=== PATIENT | male | born 1930 | race Caucasian/White ===

== ENCOUNTER 2016-09-07 16:05 | Emergency (ER) | payer OTHER, BC ==
[2016-09-07 16:15] VITALS: TEMP 97.8; BMI 25.1
--- NOTE | 2016-09-07 16:17 | PDOC ---
Rapid Medical Evaluation Time Seen by Provider: 09/07/16 16:13 Medical Evaluation: Allergies Allergy/AdvReac Type Severity Reaction Status Date / Time No Known Drug Allergies Allergy Verified 11/17/15 20:34 shrimp Allergy Unknown lip Uncoded 11/17/15 20:34 swelling 09/07/16 16:14 I have performed a brief in-person evaluation of this patient. Mr. Ramirez is an 85 yo M sent in by Dr. Smallwood Last night had shortness of breath, gave himself a treatment but he continued to be short of breath Coughing for a few days Mucous changed color No fevers, (+) chills No chest pain Pertinent physical exam findings: Lungs clear, no wheezing or decreased breath sounds appreciated I have ordered the following: Sepsis order set The patient will proceed to the ED for further evaluation. 09/07/16 16:17
--- NOTE | 2016-09-07 16:54 | PDOC ---
History of Present Illness - History of Present Illness Initial Comments: 09/07/16 17:58 Patient is an 85 year old male with significant medical hx of HLD, HTN, and COPD (not on O2 at home) who is presenting to the ED with diaphoresis, chills, and cough since last night. The patient reports an hour after falling asleep last night he began sweating with chills. The patient also complains of non- productive cough with some congestion. The patient is unsure if this is an exacerbation of his COPD. Denies fevers, chest pain, or shortness of breath. NKDA. Certified Indoor Environmentalist: Neeraj Smallwood MD PMD: Nile Dahl MD [employer] Merchandising Coordinator: Everett Orr MD <Neena Adame - Last Filed: 09/07/16 18:16> - General History Source: Patient Exam Limitations: No Limitations <Neil Shaver - Last Filed: 09/07/16 18:49> - General Chief Complaint: Shortness of Breath Stated Complaint: PCP SENT/POSS PNEUMONIA Time Seen by Provider: 09/07/16 16:13 Past History <Neena Adame - Last Filed: 09/07/16 18:16> - Past Medical History Cancer: Yes (Lung Nodule (?)) COPD: Yes HTN: Yes Hypercholesterolemia: Yes Suicide Attempt (Hx): No - Immunization History Immunization Up to Date: No - Psycho/Social/Smoking Cessation Hx Anxiety: No Suicidal Ideation: No Smoking Status: Yes Smoking History: Former smoker Have you smoked in the past 12 months: No Number of Cigarettes Smoked Daily: 0 If you are a former smoker, when did you quit?: 1989 Information on smoking cessation initiated: No Hx Alcohol Use: No Drug/Substance Use Hx: No Substance Use Type: None <Neil Shaver - Last Filed: 09/07/16 18:49> - Past Medical History Allergies/Adverse Reactions: Allergies Allergy/AdvReac Type Severity Reaction Status Date / Time No Known Drug Allergies Allergy Verified 09/07/16 16:14 shrimp Allergy Unknown lip Uncoded 09/07/16 16:14 swelling Home Medications: Ambulatory Orders Tiotropium [place] [Spiriva] 18 mcg IH DAILY 06/23/11 Albuterol Sulfate [Proair Hfa -] 1 - 2 inh PO PRN PRN #1 hfa.[email or web address] 03/27/14 Budesonide/Formeterol Fumarate [SYMBICORT 80/4.5mcg -] 1 inh PO DAILY 02/15/15 Aspirin Coated [Ecotrin -] 81 mg PO DAILY tablet.ec 11/20/15 Atorvastatin Ca [Lipitor] 40 mg PO HS tablet 11/20/15 Fludrocortisone Acetate [Florinef -] 0.1 mg PO DAILY tablet 11/20/15 Metoprolol Tartrate [Lopressor -] 12.5 mg PO BID tablet 11/20/15 Review of Systems - Review of Systems Comments:: 09/07/16 18:00 GENERAL/CONSTITUTIONAL: Diaphoresis, chills. No fever. No weakness. HEAD, EYES, EARS, NOSE AND THROAT: No change in vision. No ear pain or discharge. No sore throat. CARDIOVASCULAR: No chest pain or shortness of breath. RESPIRATORY: Cough. No wheezing or hemoptysis. GASTROINTESTINAL: No nausea, vomiting, diarrhea or constipation. GENITOURINARY: No dysuria, frequency, or change in urination. MUSCULOSKELETAL: No joint or muscle swelling or pain. No neck or back pain. SKIN: No rash NEUROLOGIC: No headache, vertigo, loss of consciousness, or change in strength/ sensation. <Neena Adame - Last Filed: 09/07/16 18:16> *Physical Exam - Vital Signs Last Vital Signs Temp Pulse Resp BP Pulse Ox 97.8 F 97 H 18 142/87 93 L 09/07/16 16:10 09/07/16 16:10 09/07/16 16:10 09/07/16 16:10 09/07/16 16:10 - Physical Exam Comments: 09/07/16 18:01 GENERAL: Awake, alert, and fully oriented, in no acute distress. Smiling. HEAD: No signs of trauma EYES: PERRLA, EOMI, sclera anicteric, conjunctiva clear ENT: Auricles normal inspection, hearing grossly normal, nares patent, oropharynx clear without exudates. Moist mucosa NECK: Normal ROM, supple, no lymphadenopathy, JVD, or masses LUNGS: Breathing comfortably. Breath sounds equal, clear to auscultation bilaterally. No wheezes, and no crackles HEART: Regular rate and rhythm, normal S1 and S2, no murmurs, rubs or gallops ABDOMEN: Soft, nontender, normoactive bowel sounds. No guarding, no rebound. No masses EXTREMITIES: Normal range of motion, no edema. No clubbing or cyanosis. No cords, erythema, or tenderness NEUROLOGICAL: Cranial nerves II through XII grossly intact. Normal speech, normal gait SKIN: Warm, Dry, normal turgor, no rashes or lesions noted. ENDOCRINE: No increased thirst. No abnormal weight change. HEMATOLOGIC/LYMPHATIC: No anemia, easy bleeding, or history of blood clots. ALLERGIC/IMMUNOLOGIC: No hives or skin allergy. <Neena Adame - Last Filed: 09/07/16 18:16> - Vital Signs Last Vital Signs Temp Pulse Resp BP Pulse Ox 97.8 F 97 H 18 142/87 93 L 09/07/16 16:10 09/07/16 16:10 09/07/16 16:10 09/07/16 16:10 09/07/16 16:10 <Neil Shaver - Last Filed: 09/07/16 18:49> Heart Score/ECG Review #1 ECG reviewed & interpreted by me at: 16:25 09/07/16 16:51 NSR 82, no std/donnell, normal axis, normal intervals, QTC 457 msec <Neil Shaver - Last Filed: 09/07/16 18:49> ED Treatment Course - LABORATORY CBC & Chemistry Diagram: 09/07/16 16:45 09/07/16 16:45 - ADDITIONAL ORDERS Additional order review: Laboratory Results 09/07/16 09/07/16 09/07/16 16:45 16:45 16:45 INR 1.19 H PTT (Actin FS) 30.9 Lactic Acid 1.081 Blood Type A POSITIVE Antibody Screen Negative 09/07/16 17:13 Influenza Types A,B Antigen (MELISSA) - Final Nasopharyngeal Swab - Final 09/07/16 16:45 RBC 5.02 MCV 89.5 MCHC 33.8 RDW 14.7 MPV 7.6 Neutrophils % 67.1 Lymphocytes % 26.0 Monocytes % 4.0 Eosinophils % 2.4 Basophils % 0.5 - RADIOLOGY Radiograph Interpretation: 09/07/16 18:16 Pharmacy General Manager: ([email or web address]) Report Date: 09/07/2016 17:03:00 Report Status: Preliminary Begin of Report Content Referring Physician: Janae Navarro Patient Name: Fran Ramirez THIS IS A FINAL REPORT FROM [facility] EXAM: X-RAY OF THE CHEST DATE OF SERVICE: 2016-09-07 17:03:10.0 IMAGES: 1 INDICATION: Sepsis. COMPARISON: None. FINDINGS: CARDIOVASCULAR: The cardiopericardial silhouette is within normal size limits. The mediastinum is not widened. The pulmonary vasculature is within the limits of normal. LUNGS: The lungs are hyperinflated with overall increased lucency indicative of COPD. There is upper lobe bullous change and fibrosis. There is pleural disease. There is no airspace consolidation, pleural effusion or visible pneumothorax. BONES: The imaged osseous structures demonstrate no acute abnormality. IMPRESSION: Chronic emphysematous lung disease. No infiltrate seen radiographically. THIS DOCUMENT HAS BEEN ELECTRONICALLY SIGNED Aggie Mcghee M.D. 09/07/2016 17:37 KENJI Amin Please call [facility] [phone] ([phone]) with questions. End of Report Content <Neena Adame - Last Filed: 09/07/16 18:16> - LABORATORY CBC & Chemistry Diagram: 09/07/16 16:45 09/07/16 16:45 <Neil Shaver - Last Filed: 09/07/16 18:49> Medical Decision Making - Medical Decision Making 09/07/16 16:52 A portion of this note was written by my scribe, under my supervision. Vital Signs Temp Pulse Resp BP Pulse Ox 97.8 F 97 H 18 142/87 93 L 09/07/16 16:10 09/07/16 16:10 09/07/16 16:10 09/07/16 16:10 09/07/16 16:10 85 year old male with past medical history of COPD (followed by DR. Smallwood), HLD p/w coughing and chills since yesterday. Denies sick contacts. Denies fevers. Stated he had chest congestion and coughing. Denies chest pain or SOB. The patient overall is well-appearing and breathing comfortably. Will r/o PNA. Though I suspect that this is likely viral syndrome. Case discussed with DR. Smallwood who agrees with plan for xray/labs. 09/07/16 18:43 Chest xray reviewed. No acute infiltrates. Influenza swab negative. CBC, BMP 09/07/16 16:45 09/07/16 16:45 CMP Sodium 144 mmol/L (136-145) 09/07/16 16:45 Potassium 4.0 mmol/L (3.5-5.1) 09/07/16 16:45 Chloride 104 mmol/L (98-107) 09/07/16 16:45 Carbon Dioxide 29 mmol/L (21-32) 09/07/16 16:45 Anion Gap 11 (8-16) 09/07/16 16:45 BUN 26 mg/dL (7-18) H 09/07/16 16:45 Creatinine 1.0 mg/dL (0.7-1.3) 09/07/16 16:45 Creat Clearance w eGFR > 60 (>60) 09/07/16 16:45 Random Glucose 109 mg/dL (74-106) H 09/07/16 16:45 Lactic Acid 1.081 mmol/L (0.4-2.0) 09/07/16 16:45 Calcium 9.2 mg/dL (8.5-10.1) 09/07/16 16:45 Total Bilirubin 0.5 mg/dL (0.2-1.0) D 09/07/16 16:45 AST 18 U/L (15-37) 09/07/16 16:45 ALT 16 U/L (12-78) 09/07/16 16:45 Alkaline Phosphatase 63 U/L (45-117) D 09/07/16 16:45 Creatine Kinase 57 IU/L (39-308) 09/07/16 16:45 Troponin I < 0.02 ng/ml (0.00-0.05) D 09/07/16 16:45 Total Protein 6.8 g/dl (6.4-8.2) 09/07/16 16:45 Albumin 4.1 g/dl (3.4-5.0) 09/07/16 16:45 The patient feels very well. He will be discharged with his family. Return precautions given. I discussed the physical exam findings, ancillary test results and final diagnoses with the patient. I answered all of the patient's questions. The patient was satisfied with the care received and felt comfortable with the discharge plan and treatment plan. The patient will call their primary care physician within 24 hours to arrange follow-up and will return to the Emergency Department with any new, persistant or worsening symptoms. <Neil Shaver - Last Filed: 09/07/16 18:49> *DC/Admit/Observation/Transfer - Attestations Scribe Attestion: 09/07/16 18:01 Documentation prepared by Neena Adame, acting as medical transcriber for Neil Shaver MD. <Neena Adame - Last Filed: 09/07/16 18:16> - Discharge Dispostion Admit: No <Neil Shaver - Last Filed: 09/07/16 18:49> Diagnosis at time of Disposition: Viral syndrome - Discharge Dispostion Disposition: HOME Condition at time of disposition: Good - Referrals Referrals: Nile Dahl MD [Primary Care Provider] - Neeraj Smallwood MD [Staff Physician] - - Patient Instructions Printed Discharge Instructions: DI for Viral Syndrome Additional Instructions: Your chest xray and influenza swab is negative. Your blood work is unremarkable. Follow up with Dr. Smallwood.
[2016-09-07 16:58] LABS: BASOPHIL 0.5 % (0-2.0); EOSINOPHIL 2.4 % (0-4.5); MCH 30.3 pg (25.7-33.7); MCHC 33.8 g/dl (32.0-35.9); MEAN CELL VOLUME 89.5 fl (80-96); MEAN PLT VOLUME 7.6 fl (7.5-11.1); NEUTROPHILS 67.1 % (42.8-82.8); PLATELET COUNT 256 K/MM3 (134-434); RDW 14.7 % (11.9-15.9); WHITE BLOOD COUNT 10.3 K/mm3 (4.0-10.0)
[2016-09-07 17:33] LABS: INR 1.19 (0.82-1.09); PROTHROMBIN TIME (PATIENT) 13.1 SEC (9.98-11.88)
[2016-09-07 17:36] LABS: ACTIVATED PTT 30.9 SECONDS (26.9-34.4)
[2016-09-07 18:18] LABS: ALBUMIN 4.1 g/dl (3.4-5.0); ANION GAP 11 (8-16); CALCIUM 9.2 mg/dL (8.5-10.1); CO2 29 mmol/L (21-32); GLUCOSE,RANDOM 109 mg/dL (74-106)
[2016-09-07 18:23] LABS: ALK PHOS 63 U/L (45-117); BILIRUBIN,TOTAL 0.5 mg/dL (0.2-1.0); SGOT/AST 18 U/L (15-37); SGPT/ALT 16 U/L (12-78); TOT PROT 6.8 g/dl (6.4-8.2); TROPONIN I < 0.02 ng/ml (0.00-0.05)
[2016-09-07 18:56] VITALS: BP 132/74; PULSE 72
--- NOTE | 2016-09-09 11:18 | EKG ---
Test Reason : Blood Pressure : / mmHG Vent. Rate : 082 BPM Atrial Rate : 082 BPM P-R Int : 166 ms QRS Dur : 100 ms QT Int : 392 ms P-R-T Axes : 080 -21 057 degrees QTc Int : 457 ms NORMAL SINUS RHYTHM ANTERIOR INFARCT (CITED ON OR BEFORE 12-AUG-2015) ABNORMAL ECG WHEN COMPARED WITH ECG OF 17-NOV-2015 20:22, COMPARED TO EKG NO SIGNIFICANT CHANGE IS FOUND Confirmed by DALIA PAIGE MD ([id number]) on 09/09/2016 11:18:42 AM Referred By: Confirmed By:DALIA PAIGE MD
== END 2016-09-07 18:56 | disposition home or self-care (01) ==
LOC: JER 16:05
DX: B34.9 Viral infection, unspecified (principal); E78.5 Hyperlipidemia, unspecified; I10 Essential (primary) hypertension; J44.9 Chronic obstructive pulmonary disease, unspecified; Z87.891 Personal history of nicotine dependence
CPT/HCPCS: 36415; 71010-TC; 80053; 82550; 83605; 84484; 85025; 85610; 85730; 86850; 86900; 86901; 87040; 87804; 93005; 93010; 99283-25

== ENCOUNTER 2016-10-23 13:59 | Emergency (ER) | payer OTHER, BC ==
[2016-10-23 14:22] VITALS: BP 143/89; PULSE 81; TEMP 98.2; BMI 25.1
--- NOTE | 2016-10-23 16:03 | PDOC ---
History of Present Illness - General Chief Complaint: Pain Stated Complaint: FOOT PAIN Time Seen by Provider: 10/23/16 15:44 History Source: Patient Exam Limitations: No Limitations - History of Present Illness Initial Comments: 10/23/16 15:56 85 yr male with pain to the bottom of right foot and lateral lower leg. Pain started 2 days ago worse last night. Pt denies trauma no fever or chills. 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 Pt had xray done today and uric acid drawn today. Past History - Past Medical History Allergies/Adverse Reactions: Allergies Allergy/AdvReac Type Severity Reaction Status Date / Time No Known Drug Allergies Allergy Verified 09/07/16 16:14 shrimp Allergy Unknown lip Uncoded 10/23/16 14:17 swelling Home Medications: Ambulatory Orders Tiotropium [place] [Spiriva] 18 mcg IH DAILY 06/23/11 Albuterol Sulfate [Proair Hfa -] 1 - 2 inh PO PRN PRN #1 [email or web address] 03/27/14 Budesonide/Formeterol Fumarate [SYMBICORT 80/4.5mcg -] 1 inh PO DAILY 02/15/15 Aspirin Coated [Ecotrin -] 81 mg PO DAILY tablet.ec 11/20/15 Atorvastatin Ca [Lipitor] 40 mg PO HS tablet 11/20/15 Fludrocortisone Acetate [Florinef -] 0.1 mg PO DAILY tablet 11/20/15 Metoprolol Tartrate [Lopressor -] 12.5 mg PO BID tablet 11/20/15 Acetaminophen W/ Codeine #3 [Tylenol # 3 -] 1 tab PO Q6H PRN #10 tablet MDD 6 tabs 10/23/16 Cancer: Yes (Lung Nodule (?)) COPD: Yes HTN: Yes Hypercholesterolemia: Yes Suicide Attempt (Hx): No - Immunization History Immunization Up to Date: Yes - Psycho/Social/Smoking Cessation Hx Anxiety: No Suicidal Ideation: No Smoking Status: Yes Smoking History: Former smoker Have you smoked in the past 12 months: No Number of Cigarettes Smoked Daily: 0 If you are a former smoker, when did you quit?: 1989 Information on smoking cessation initiated: No Hx Alcohol Use: No Drug/Substance Use Hx: No Substance Use Type: None *Physical Exam - Vital Signs Last Vital Signs Temp Pulse Resp BP Pulse Ox 98.2 F 81 18 143/89 95 10/23/16 14:18 10/23/16 14:18 10/23/16 14:18 10/23/16 14:18 10/23/16 14:18 - Physical Exam General Appearance: Yes: Nourished, Appropriately Dressed HEENT: positive: EOMI, JIHAN Neck: positive: Supple Respiratory/Chest: positive: Lungs Clear, Wheezing (mild exp chronic wheeze) Cardiovascular: positive: Regular Rhythm, Regular Rate Musculoskeletal: positive: Normal Inspection. negative: CVA Tenderness, CVA Tenderness (R), CVA Tenderness (L), Decreased Range of Motion Extremity: positive: Normal Capillary Refill, Normal Inspection, Other ( decreased sensation to right lateral calf , no swelling no redness, nv intact, SLR pain at 45 degrees to right buttock ). negative: Coldness, Swelling, Erythema Integumentary: positive: Normal Color, Dry, Warm. negative: Pale, Cold, Rash, Swelling Neurologic: positive: Fully Oriented, Alert, Normal Mood/Affect, Normal Response , Motor Strength 10/26 ED Treatment Course - RADIOLOGY Radiology Studies Ordered: Category Date Time Status DUPLEX VASCUL US-1 LEG [US] Stat Ultrasound 10/23/16 15:51 Ordered Medical Decision Making - Medical Decision Making 10/23/16 16:03 cc: right foot pain lateral leg pain right calf numbness pt denies back pain however states some pain to the right buttock will get US to r/o DVT will discuss case with 10/23/16 16:12 case discussed with xray is negative done today Uric Acid is normal will r/o DVT most likely sciatica will give tylenol #3 for pain pt states has been taking aleve and motrin with no relief *DC/Admit/Observation/Transfer Diagnosis at time of Disposition: Foot pain, right - Discharge Dispostion Disposition: HOME Condition at time of disposition: Good - Prescriptions Prescriptions: Acetaminophen W/ Codeine #3 [Tylenol # 3 -] 1 tab PO Q6H PRN #10 tablet MDD 6 tabs PRN Reason: Severe Pain - Patient Instructions Additional Instructions: take tylenol #3 as directed with food DO NOT DRIVE, DRINK ALCOHOL OR OPERATE MACHINERY WHILE TAKING THIS MEDICATION elevate the leg follow with your doctor tomorrow if pain persists
[2016-10-23] MEDS ORDERED: KETOROLAC TROMETHAMINE 30 MG/1 ML VIAL IM ONE (16:22)
[2016-10-23] MEDS ORDERED: ACETAMINOPHEN WITH CODEINE 300MG/30MG TABLET PO ONE (16:38)
[2016-10-23] MEDS ORDERED: ACETAMINOPHEN WITH CODEINE 300MG/30MG TABLET ONE (16:43)
== END 2016-10-23 17:09 | disposition home or self-care (01) ==
LOC: JERFT 13:59 → JER 13:59 → JERFT 17:09
DX: M79.671 Pain in right foot (principal); I10 Essential (primary) hypertension; E78.00 Pure hypercholesterolemia, unspecified; J44.9 Chronic obstructive pulmonary disease, unspecified; R91.1 Solitary pulmonary nodule; Z87.891 Personal history of nicotine dependence
CPT/HCPCS: 36415; 73630-TC-RT; 84550; 85651; 93971-TC; 99281-25

== ENCOUNTER 2016-12-15 12:22 | Emergency (ER) | payer OTHER, BC ==
[2016-12-15 12:38] VITALS: BP 143/62; PULSE 78; TEMP 98.2; BMI 24.9
[2016-12-15] MEDS ORDERED: ALBUTEROL SO4 2.5/IPRATROPIUM 0.5 INH SOL 3 ML VIAL.NEB. NEB ONE ×2 (13:04→13:17)
[2016-12-15 13:35] LABS: BASOPHIL 0.5 % (0-2.0); EOSINOPHIL 1.9 % (0-4.5); MCHC 33.7 g/dl (32.0-35.9); MEAN CELL VOLUME 89.2 fl (80-96); MEAN PLT VOLUME 7.3 fl (7.5-11.1); PLATELET COUNT 226 K/MM3 (134-434); RDW 14.6 % (11.9-15.9); WHITE BLOOD COUNT 9.9 K/mm3 (4.0-10.0)
[2016-12-15 13:47] LABS: INR 1.28 (0.82-1.09); PROTHROMBIN TIME (PATIENT) 14.1 SEC (9.98-11.88)
--- NOTE | 2016-12-15 13:47 | PDOC ---
History of Present Illness - General Chief Complaint: Shortness of Breath Stated Complaint: SOB Time Seen by Provider: 12/15/16 12:40 History Source: Patient Exam Limitations: No Limitations - History of Present Illness Initial Comments: 12/15/16 13:42 86-year-old male presents the ED with complaints of cough for the past week now associated with chills yesterday and shortness of breath. Patient states history of COPD, pneumonia, lung nodule, anemia, hypertension, dyslipidemia, and is followed by Dr. Dahl for primary care and Dr. Smallwood for pulmonology. Patient denies recent travel, recent illness but states did have pneumonia a few months ago that required him to receive antibiotics for. Patient denies chest pain, palpitations, nausea, diaphoresis, or weakness. Timing/Duration: reports: other (1 week), getting worse Severity: reports: moderate Possible Cause: Yes: occasional episodes Modifying Factors: improves with: coughing Associated Symptoms: reports: cough, fever/chills, shortness of breath, wheezing (intermittent) Past History - Past Medical History Allergies/Adverse Reactions: Allergies Allergy/AdvReac Type Severity Reaction Status Date / Time No Known Drug Allergies Allergy Verified 12/15/16 12:33 shrimp Allergy Unknown lip Uncoded 12/15/16 12:33 swelling Home Medications: Ambulatory Orders Tiotropium [place] [Spiriva] 18 mcg IH DAILY 06/23/11 Albuterol Sulfate [Proair Hfa -] 1 - 2 inh PO PRN PRN #1 [email or web address] 03/27/14 Budesonide/Formeterol Fumarate [SYMBICORT 80/4.5mcg -] 1 inh PO DAILY 02/15/15 Aspirin Coated [Ecotrin -] 81 mg PO DAILY tablet.ec 11/20/15 Atorvastatin Ca [Lipitor] 40 mg PO HS tablet 11/20/15 Fludrocortisone Acetate [Florinef -] 0.1 mg PO DAILY tablet 11/20/15 Metoprolol Tartrate [Lopressor -] 12.5 mg PO BID tablet 11/20/15 Acetaminophen W/ Codeine #3 [Tylenol # 3 -] 1 tab PO Q6H PRN #10 tablet MDD 6 tabs 10/23/16 Cancer: Yes (Lung Nodule (?)) COPD: Yes HTN: Yes (border line) Hypercholesterolemia: Yes Suicide Attempt (Hx): No - Immunization History Immunization Up to Date: Yes - Psycho/Social/Smoking Cessation Hx Anxiety: No Suicidal Ideation: No Smoking Status: Yes Smoking History: Former smoker Have you smoked in the past 12 months: No Number of Cigarettes Smoked Daily: 0 If you are a former smoker, when did you quit?: 1989 Information on smoking cessation initiated: No Hx Alcohol Use: No Drug/Substance Use Hx: No Substance Use Type: None Patient Lives Alone: No Lives with/in: spouse/SO Respiratory Specific PMHX - Complaint Specific PMHX Pneumonia: Yes Review of Systems - Review of Systems Able to Perform ROS?: Yes Constitutional: Yes: Chills. No: Fever HEENTM: No: Symptoms Reported Respiratory: Yes: Cough, Shortness of Breath, Wheezing Cardiac (ROS): No: Symptoms Reported ABD/GI: No: Symptoms Reported : No: Symptoms Reported Musculoskeletal: No: Symptoms Reported Integumentary: No: Symptoms Reported Neurological: No: Symptoms reported Endocrine: No: Symptoms Reported Hematologic/Lymphatic: No: Symptoms Reported *Physical Exam - Vital Signs Last Vital Signs Temp Pulse Resp BP Pulse Ox 98.2 F 78 18 143/62 95 12/15/16 12:33 12/15/16 12:33 12/15/16 12:33 12/15/16 12:33 12/15/16 12:33 - Physical Exam General Appearance: Yes: Nourished, Appropriately Dressed. No: Apparent Distress HEENT: positive: EOMI, JIHAN, TMs Normal, Pharynx Normal. negative: Pale Conjunctivae Neck: positive: Supple Respiratory/Chest: positive: Lungs Clear, Normal Breath Sounds, Accessory Muscle Use (mild intercostal). negative: Respiratory Distress Cardiovascular: positive: Regular Rhythm, Regular Rate. negative: Murmur Gastrointestinal/Abdominal: positive: Soft. negative: Tenderness Extremity: positive: Normal Capillary Refill Integumentary: positive: Normal Color, Moist Neurologic: positive: Motor Strength 5/5 (ambulatory) Heart Score/ECG Review - History History: Slightly suspicious - Electrocardiogram EKG: Normal - Age Age: >/= 65 - Risk Factors Risk Factors Heart Score: Yes Hx Hypercholesterolemia, Yes Hx Hypertension, Yes Smoking History Based on the list above the patient has:: >/=3 risk factors or Hx atherosclerotic disease - Troponin Troponin: </= normal limit - Score Heart Score - Total: 4 - ECG Intrepretation Rhythm: Regular Rhythm (normal sinus rhythm at 76. No changes from previous EKG 2016) ED Treatment Course - LABORATORY CBC & Chemistry Diagram: 12/15/16 13:25 12/15/16 13:25 - ADDITIONAL ORDERS Additional order review: 12/15/16 13:25 RBC 4.35 MCV 89.2 MCHC 33.7 RDW 14.6 MPV 7.3 L Neutrophils % 70.0 Lymphocytes % 22.7 Monocytes % 4.9 Eosinophils % 1.9 Basophils % 0.5 - RADIOLOGY Radiology Studies Ordered: Category Date Time Status CHEST X-RAY PORTABLE* [RAD] Stat Radiology 12/15/16 13:03 Ordered - Medications Given in the ED: ED Medications Discontinued Medications Generic Name Dose Route Start Last Admin Trade Name Freq PRN Reason Stop Dose Admin Albuterol/Ipratropium 1 amp 12/15/16 13:04 12/15/16 13:30 Duoneb - NEB 12/15/16 13:05 1 amp ONCE ONE Administration Medical Decision Making - Medical Decision Making 12/15/16 13:48 Patient with history of COPD presenting with cough, wheezing, fever and chills worsening over the past week. Patient states recent pneumonia that quadrant antibiotics but denies any recent travel, or recent sick contacts. Patient on exam was satting at 95-96% on room air with mild use of assessory muscles. Patient had clear lungs to bases. Differential diagnosis includes pneumonia, COPD exacerbation, ACS. Patient ordered for labs, blood culture, urine, chest x-ray and a DuoNeb. 12/15/16 15:34 Laboratory Tests 12/15/16 15:20 Urine Ketones 1+ H Urine Nitrite Negative Ur Leukocyte Esterase Trace H D Urine RBC 1 Urine WBC 4 12/15/16 15:37 Laboratory Tests 12/15/16 12/15/16 12/15/16 13:25 13:25 13:25 WBC 9.9 Hgb 13.1 Hct 38.8 Plt Count 226 D Neutrophils % 70.0 INR 1.28 H Sodium 142 Potassium 4.0 Chloride 104 Carbon Dioxide 28 Anion Gap 10 BUN 22 H D Urine Ketones Urine Nitrite Ur Leukocyte Esterase Urine WBC 12/15/16 15:20 WBC Hgb Hct Plt Count Neutrophils % INR Sodium Potassium Chloride Carbon Dioxide Anion Gap BUN Urine Ketones 1+ H Urine Nitrite Negative Ur Leukocyte Esterase Trace H D Urine WBC 4 Chest x-ray negative for acute findings. Chronic changes again seen when compared to previous CT. Patient recommended to drink some fluids since he did have ketones in his urine and his began was slightly elevated. Patient states feeling much better. I will give patient a dose of prednisone 40 mg and continue for the next 2 days. 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 *DC/Admit/Observation/Transfer Diagnosis at time of Disposition: Shortness of breath, Cough COPD (chronic obstructive pulmonary disease) Qualifiers: COPD type: COPD with acute exacerbation Qualified Code(s): J44.1 - Chronic obstructive pulmonary disease with (acute) exacerbation - Discharge Dispostion Disposition: HOME Condition at time of disposition: Improved - Referrals Referrals: Nile Dahl MD [Primary Care Provider] - - Patient Instructions Printed Discharge Instructions: DI for Chronic Obstructive Pulmonary Disease Additional Instructions: At this time your blood work, EKG and urine showed no significant findings. I do recommend he drink some fluids as labs reveal your slightly dehydrated. The chest x-ray at this time shows no acute findings but I do recommend you follow up with your primary care physician and diesel engine erector. If symptoms return or worsen please return to the ED
[2016-12-15 14:04] LABS: ALBUMIN 3.3 g/dl (3.4-5.0); ANION GAP 10 (8-16); BILIRUBIN,TOTAL 0.6 mg/dL (0.2-1.0); CALCIUM 8.5 mg/dL (8.5-10.1); CO2 28 mmol/L (21-32); CREATININE 0.8 mg/dL (0.7-1.3); GLUCOSE,RANDOM 86 mg/dL (74-106); MAGNESIUM 2.1 mg/dL (1.8-2.4); SGOT/AST 15 U/L (15-37); SGPT/ALT 13 U/L (12-78); TOT PROT 5.9 g/dl (6.4-8.2)
[2016-12-15 14:07] LABS: ALK PHOS 58 U/L (45-117); TROPONIN I < 0.02 ng/ml (0.00-0.05)
--- NOTE | 2016-12-15 14:12 | PDOC ---
*Physical Exam - Vital Signs Last Vital Signs Temp Pulse Resp BP Pulse Ox 98.2 F 78 18 143/62 95 12/15/16 12:33 12/15/16 12:33 12/15/16 12:33 12/15/16 12:33 12/15/16 12:33 ED Treatment Course - LABORATORY CBC & Chemistry Diagram: 12/15/16 13:25 12/15/16 13:25 - ADDITIONAL ORDERS Additional order review: Laboratory Results 12/15/16 13:25 INR 1.28 H 12/15/16 13:25 RBC 4.35 MCV 89.2 MCHC 33.7 RDW 14.6 MPV 7.3 L Neutrophils % 70.0 Lymphocytes % 22.7 Monocytes % 4.9 Eosinophils % 1.9 Basophils % 0.5 - Medications Given in the ED: ED Medications Discontinued Medications Generic Name Dose Route Start Last Admin Trade Name Freq PRN Reason Stop Dose Admin Albuterol/Ipratropium 1 amp 12/15/16 13:04 12/15/16 13:30 Duoneb - NEB 12/15/16 13:05 1 amp ONCE ONE Administration Medical Decision Making - Medical Decision Making 12/15/16 14:11 Pt seen by the Advanced Practice Provider under my direct supervision Ancillary studies reviewed I agree with plan as outlined by the Advanced Practice Provider DEAN Tolbert *DC/Admit/Observation/Transfer Diagnosis at time of Disposition: Shortness of breath, Cough, COPD (chronic obstructive pulmonary disease) - Discharge Dispostion Disposition: HOME Condition at time of disposition: Improved - Prescriptions Prescriptions: Prednisone [Deltasone -] 40 mg PO DAILY #6 tablet - Referrals Referrals: Nile Dahl MD [Primary Care Provider] - - Patient Instructions Printed Discharge Instructions: DI for Chronic Obstructive Pulmonary Disease Additional Instructions: At this time your blood work, EKG and urine showed no significant findings. I do recommend he drink some fluids as labs reveal your slightly dehydrated. The chest x-ray at this time shows no acute findings but I do recommend you follow up with your primary care physician and video tape duplicator. If symptoms return or worsen please return to the ED
[2016-12-15 15:28] LABS: URINE APPEARANCE CLEAR; URINE BILIRUBIN NEGATIVE (NEGATIVE); URINE BLOOD NEGATIVE (NEGATIVE); URINE COLOR YELLOW; URINE GLUCOSE (UA) NEGATIVE (NEGATIVE); URINE KETONE 1+ (NEGATIVE); URINE NITRITE NEGATIVE (NEGATIVE); URINE PROTEIN NEGATIVE (NEGATIVE); URINE UROBILINOGEN NEGATIVE E.U./dl (0.2-1.0)
[2016-12-15 15:29] LABS: URINE LEUK ESTERASE TRACE (NEGATIVE)
[2016-12-15 15:30] LABS: URINE HYALINE CAST 1 /lpf; URINE MUCUS MODERATE; URINE RBC 1 /hpf (0-3); URINE WBC 4 /hpf (3-5)
[2016-12-15] MEDS ORDERED: predniSONE 20 MG TABLET (UD) PO ONE (15:38)
[2016-12-15] MEDS ORDERED: predniSONE 20 MG TABLET (UD) ONE (15:44)
--- NOTE | 2016-12-16 21:18 | EKG ---
Test Reason : Blood Pressure : / mmHG Vent. 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
== END 2016-12-15 15:49 | disposition home or self-care (01) ==
LOC: JER 12:22
PROC: 3E0F7GC Introduction of Other Therapeutic Substance into Respiratory Tract, Via Natural or Artificial Opening (ICD-10-PCS; principal; 2016-12-15)
DX: J44.1 Chronic obstructive pulmonary disease with (acute) exacerbation (principal); I10 Essential (primary) hypertension; E78.5 Hyperlipidemia, unspecified; R91.1 Solitary pulmonary nodule
CPT/HCPCS: 36415; 71010-TC; 80053; 81003; 81015; 82550; 83735; 84484; 85025; 85610; 87040; 87086; 93005; 93010; 94640; 99285-25

== ENCOUNTER 2017-02-09 16:38 | Inpatient (IN) | payer OTHER, BC ==
[2017-02-09 17:34] VITALS: BMI 25.1
--- NOTE | 2017-02-09 17:35 | PDOC ---
History of Present Illness - General Stated Complaint: S.O.B. Time Seen by Provider: 02/09/17 17:16 History Source: Patient Exam Limitations: No Limitations - History of Present Illness Initial Comments: 02/09/17 17:35 86y M hx of COPD, lung nodule, htn, hl, presents for sob. The pts tates taht he has had a cough productive of yellowish sputum over thpast week, and th sob has gotten worse. He endorses SHANNON, but dnies any cp, fever/chills, n/v, abd pain, dairrhea,dysuria. Pt endorses some nasal congestion that he thought was causing th cough. NO recent travel or sick contacts. pt given nebs/dexametahsone by EMS prior to arrival PMD: Hes[facility] Pulm: Cl Past History - Past Medical History Allergies/Adverse Reactions: Allergies Allergy/AdvReac Type Severity Reaction Status Date / Time No Known Drug Allergies Allergy Verified 02/09/17 17:33 shrimp Allergy Unknown lip Uncoded 02/09/17 17:33 swelling Home Medications: Ambulatory Orders Tiotropium [place] [Spiriva] 18 mcg IH DAILY 06/23/11 Albuterol Sulfate [Proair Hfa -] 1 - 2 inh PO PRN PRN #1 [email or web address] 03/27/14 Budesonide/Formeterol Fumarate [SYMBICORT 80/4.5mcg -] 1 inh PO DAILY 02/15/15 Aspirin Coated [Ecotrin -] 81 mg PO DAILY tablet.ec 11/20/15 Atorvastatin Ca [Lipitor] 40 mg PO HS tablet 11/20/15 Fludrocortisone Acetate [Florinef -] 0.1 mg PO DAILY tablet 11/20/15 Metoprolol Tartrate [Lopressor -] 12.5 mg PO BID tablet 11/20/15 Acetaminophen W/ Codeine #3 [Tylenol # 3 -] 1 tab PO Q6H PRN #10 tablet MDD 6 tabs 10/23/16 Prednisone [Deltasone -] 40 mg PO DAILY #6 tablet 12/15/16 Cancer: Yes (Lung Nodule (?)) COPD: Yes HTN: Yes Hypercholesterolemia: Yes Suicide Attempt (Hx): No - Immunization History Immunization Up to Date: Yes - Psycho/Social/Smoking Cessation Hx Anxiety: No Suicidal Ideation: No Smoking Status: Yes Smoking History: Former smoker Have you smoked in the past 12 months: No Number of Cigarettes Smoked Daily: 0 If you are a former smoker, when did you quit?: 35yrs Information on smoking cessation initiated: No Hx Alcohol Use: No Drug/Substance Use Hx: No Substance Use Type: None Respiratory Specific PMHX - Complaint Specific PMHX Pneumonia: Yes Review of Systems - Review of Systems Able to Perform ROS?: Yes Comments:: 02/09/17 20:01 Constitutional - no reported Fever, Chills, HEENT: no reported vision changes, sore throat Respiratory:+sob/shannon/cough no reported hemoptysis Cardiac: no reported chest pain, palpitations, light headedness, leg swelling Abd/GI: no reported abd pain, nausea, vomiting, blood per rectum, melena, diarrhea : no reported dysuria, frequency, discharge Musculskelatal - no reported back pain, joint swelling skin - no reported bruising, erythema, rash neurological: no reported headache, numbness, focal weakness, tingling, ataxia, hematologic: no reported anemia, easy bruising, easy bleeding *Physical Exam - Vital Signs Last Vital Signs Temp Pulse Resp BP Pulse Ox 101.3 F H 77 20 145/42 90 L 02/09/17 16:44 02/09/17 16:44 02/09/17 16:44 02/09/17 16:44 02/09/17 16:44 - Physical Exam Comments: 02/09/17 20:01 GENERAL: The patient is awake, alert, and fully oriented, Nontoxic - in no acute distress. HEAD: Normocephalic, atraumatic. EYES: extraocular movements intact, sclera anicteric, conjunctiva clear. ENT: Normal voice, Moist mucous membranes. NECK: Normal range of motion, supple LUNGS: Slightly deminished breasthsounds on the L base, no wheezing HEART: Regular rate and rhythm, normal S1 and S2 without murmur, rub or gallop. ABDOMEN: Soft, nontender, normoactive bowel sounds. No guarding, no rebound. . No CVA tenderness EXTREMITIES: Normal range of motion, no edema. NEUROLOGICAL: No facial assymetry, Normal speech, PSYCH: Normal mood, normal affect. SKIN: Warm, Dry, normal turgor, ED Treatment Course - LABORATORY CBC & Chemistry Diagram: 02/09/17 17:35 02/09/17 17:35 - RADIOLOGY Radiology Studies Ordered: Category Date Time Status CHEST X-RAY PORTABLE* [RAD] Stat Radiology 02/09/17 17:32 Ordered Medical Decision Making - Medical Decision Making 02/09/17 20:01 86y M hx of COPD, lung nodule, htn, hl, presents for sob/shannon, cough productive of yellowish sputu, noted to be febrile here in ED. deminished breath sounds in L base. pt otherwise well apeparing in no distress pts labs reviewed vbg unremarkble without significant hypercapnea cxr noted for subtle L base infiltrate pt was ambulated tos ee how he felt and he appeared dyspneic and de saturated to 85% on RA, but slowly recovered to 96% on RA after approx 15 min. will admit for further management of pna CURB65 score of 2pts, but due to hypoxia, will adimt the pt for further management. *DC/Admit/Observation/Transfer Diagnosis at time of Disposition: COPD exacerbation Pneumonia Qualifiers: Pneumonia type: due to unspecified organism Laterality: left Lung location: lower lobe of lung Qualified Code(s): J18.1 - Lobar pneumonia, unspecified organism - Discharge Dispostion Condition at time of disposition: Stable Admit: Yes - Referrals Referrals: Nile Dahl MD [Primary Care Provider] -
[2017-02-09 17:52] LABS: BASOPHIL 0.4 % (0-2.0); EOSINOPHIL 2.6 % (0-4.5); MCH 30.6 pg (25.7-33.7); MCHC 34.3 g/dl (32.0-35.9); MEAN CELL VOLUME 89.3 fl (80-96); NEUTROPHILS 63.3 % (42.8-82.8); PLATELET COUNT 149 K/MM3 (134-434); RDW 15.8 % (11.9-15.9); WHITE BLOOD COUNT 9.9 K/mm3 (4.0-10.0)
[2017-02-09 17:56] LABS: VENOUS BLOOD GAS HCO3 25.5 meq/L (19-25)
[2017-02-09 17:57] LABS: VENOUS PH 7.44 (7.32-7.42)
[2017-02-09 18:16] LABS: INR 1.25 (0.82-1.09); PROTHROMBIN TIME (PATIENT) 13.8 SEC (9.98-11.88)
[2017-02-09 18:23] LABS: ALBUMIN 3.5 g/dl (3.4-5.0); ANION GAP 9 (8-16); BILIRUBIN,TOTAL 0.5 mg/dL (0.2-1.0); CALCIUM 8.8 mg/dL (8.5-10.1); CO2 26 mmol/L (21-32); CREATININE 1.2 mg/dL (0.7-1.3); GLUCOSE,RANDOM 120 mg/dL (74-106); SGOT/AST 12 U/L (15-37); SGPT/ALT 16 U/L (12-78); TOT PROT 6.2 g/dl (6.4-8.2)
[2017-02-09 18:25] LABS: ALK PHOS 56 U/L (45-117); CPK 68 IU/L (39-308); TROPONIN I < 0.02 ng/ml (0.00-0.05)
[2017-02-09] MEDS ORDERED: CEFTRIAXONE 1 GM in DEXTROSE 5%-WATER - 50 ML IVPB ONE (20:13)
[2017-02-09] MEDS ORDERED: AZITHROMYCIN IVPB 500 MG in DEXTROSE 5%-WATER - 250 ML IVPB ONE (20:13)
[2017-02-09] MEDS ORDERED: METOPROLOL TARTRATE 5 MG/5 ML VIAL IVPUSH ONE (20:17)
[2017-02-09] MEDS ORDERED: AZITHROMYCIN IVPB 250 ML IVPB ONE (20:37)
[2017-02-09] MEDS ORDERED: CEFTRIAXONE 50 ML ONE (20:37)
[2017-02-09 21:00] LABS: URINE APPEARANCE CLEAR; URINE BILIRUBIN NEGATIVE (NEGATIVE); URINE BLOOD NEGATIVE (NEGATIVE); URINE COLOR YELLOW; URINE GLUCOSE (UA) NEGATIVE (NEGATIVE); URINE KETONE NEGATIVE (NEGATIVE); URINE NITRITE NEGATIVE (NEGATIVE); URINE PROTEIN NEGATIVE (NEGATIVE); URINE UROBILINOGEN NEGATIVE mg/dL (0.2-1.0)
--- NOTE | 2017-02-09 21:05 | HP ---
CHIEF COMPLAINT: worsening shortness of breath PCP: Hesham Alcantara: Cl HISTORY OF PRESENT ILLNESS: 86 yr old man with hx of COPD(not on home o2), HLD, pulmonary nodule, continous post-nasal drip, presents with worsening dyspnea on exertion for the past week and 2 days of worsening productive cough. He used his albuterol nebs x2 with some relief during the week, continued to take his spiriva and symbicort daily. cough would occur throughout day and at night, takes several minutes to stop. a.w loss of appetite, and generalized malaise denies chest pain, any anti-tussives, fevers, chills, headache, n/v, dysuria, recent abx or steriod use. ER course was notable for: (1) on ED PE, pt was hypoxic, initial temp is 101.3F orally (2) tropx1 negative (3) azithromycin + rocephin Recent Travel: none PAST MEDICAL HISTORY: Was once on HTN meds, but now no longer hypertensive so stopped taking his medications HLD COPD PAST SURGICAL HISTORY: denies Social History: Smoking: quit 35 yrs ago, was heavy smoker since his 20's Alcohol: rare socially Drugs: denies Family History: father in his 90's due to prostate cancer, multiple family members with post-nasal drip Allergies No Known Drug Allergies Allergy (Verified 02/09/17 17:33) shrimp Allergy (Unknown, Uncoded 02/09/17 17:33) lip swelling HOME MEDICATIONS: Home Medications Escitalopram 10mg daily lasix 20mg po prn when he notices LE, usually 3x weekly Medication Instructions Recorded Tiotropium [place] [Spiriva] 18 mcg IH DAILY 06/23/11 Albuterol Sulfate [Proair Hfa -] DISCONTINUED 1 - 2 inh PO PRN PRN #1 [email or web address] 03/27/14 Budesonide/Formeterol Fumarate 1 inh PO DAILY 02/15/15 [SYMBICORT 80/4.5mcg -] Aspirin Coated [Ecotrin -] 81 mg PO DAILY tablet.ec 11/20/15 Atorvastatin Ca [Lipitor] 40 mg PO HS tablet 11/20/15 Fludrocortisone Acetate [Florinef 0.1 mg PO DAILY tablet 11/20/15 DISCONTINUED-] Metoprolol Tartrate [Lopressor -] DISCONTINUED 12.5 mg PO BID tablet 11/20/15 Acetaminophen W/ Codeine #3 1 tab PO Q6H PRN #10 tablet MDD 6 10/23/16 [Tylenol # 3 -] DISCONTINUED tabs Prednisone [Deltasone -] DISCONTINUED 40 mg PO DAILY #6 tablet 12/15/16 REVIEW OF SYSTEMS CONSTITUTIONAL: Present:generalized malaise,loss of appetite Absent: fever, chills, diaphoresis, weakness, weight change HEENT: Absent: rhinorrhea, nasal congestion, throat pain, throat swelling, difficulty swallowing, mouth swelling, ear pain, eye pain, visual changes CARDIOVASCULAR: Absent: chest pain, syncope, palpitations, irregular heart rate, lightheadedness , peripheral edema RESPIRATORY: Present: productive cough, shortness of breath, dyspnea with exertion, Absent: orthopnea, wheezing, stridor, hemoptysis GASTROINTESTINAL: Absent: abdominal pain, abdominal distension, nausea, vomiting, diarrhea, constipation, melena, hematochezia GENITOURINARY: Absent: dysuria, frequency, urgency, hesitancy, hematuria, flank pain, genital pain MUSCULOSKELETAL: Absent: myalgia, arthralgia, joint swelling, back pain, neck pain SKIN: Absent: rash, itching, pallor HEMATOLOGIC/IMMUNOLOGIC: Present: easy bruising, Absent: easy bleeding, lymphadenopathy, frequent infections ENDOCRINE: Absent: unexplained weight gain, unexplained weight loss, heat intolerance, cold intolerance NEUROLOGIC: Absent: headache, focal weakness dizziness, unsteady gait, seizure, mental status changes, bladder or bowel incontinence PHYSICAL EXAMINATION Vital Signs - 24 hr 02/09/17 02/09/17 02/09/17 16:44 17:00 18:26 Temperature 101.3 F H Pulse Rate 77 Pulse Rate [ 79 Right Radial] Respiratory 20 22 Rate Blood Pressure 145/42 Blood Pressure 130/54 [Left Arm] O2 Sat by Pulse 90 L 98 95 Oximetry (%) 02/09/17 19:29 Temperature 98.1 F Pulse Rate Pulse Rate [ 72 Right Radial] Respiratory 21 Rate Blood Pressure Blood Pressure 132/51 [Left Arm] O2 Sat by Pulse 98 Oximetry (%) GENERAL: Awake, alert, and fully oriented, in no acute distress. HEAD: Normal with no signs of trauma. EYES: Pupils equal, round and reactive to light, extraocular movements intact, sclera anicteric, conjunctiva clear. No lid lag. EARS, NOSE, THROAT: oropharynx clear without exudates. Moist mucous membranes. NECK: Normal range of motion, supple without lymphadenopathy, JVD, or masses. LUNGS: poor entry with fine crackles in right lower base HEART: Regular rate and rhythm, normal S1 and S2 without murmur, rub or gallop. ABDOMEN: Soft, nontender, not distended, normoactive bowel sounds, no guarding, no rebound, no masses. No hepatomegaly or splenomegaly. MUSCULOSKELETAL: Normal range of motion at all joints. No bony deformities or tenderness. No CVA tenderness. UPPER EXTREMITIES: 2+ radial pulses, warm, well-perfused. No cyanosis. No clubbing. No peripheral edema. LOWER EXTREMITIES: 2+ dp pulses, warm, well-perfused. No calf tenderness. No peripheral edema. mild hyperpigmented skin anterior lower legs NEUROLOGICAL: Cranial nerves II-XII intact. Normal speech. 5/5 handgrip b/l Laboratory Results - last 24 hr 02/09/17 02/09/17 02/09/17 17:35 17:35 17:35 WBC 9.9 RBC 4.58 Hgb 14.0 Hct 40.9 MCV 89.3 MCH 30.6 MCHC 34.3 RDW 15.8 Plt Count 149 D MPV 8.0 Neutrophils % 63.3 Lymphocytes % 28.4 D Monocytes % 5.3 Eosinophils % 2.6 Basophils % 0.4 INR 1.25 H PTT (Actin FS) VBG pH POC VBG pCO2 POC VBG pO2 Mixed VBG HCO3 Sodium 141 Potassium 3.9 Chloride 106 Carbon Dioxide 26 Anion Gap 9 BUN 26 H Creatinine 1.2 D Creat Clearance w eGFR 57.68 Random Glucose 120 H D Lactic Acid Calcium 8.8 Total Bilirubin 0.5 AST 12 L ALT 16 D Alkaline Phosphatase 56 Creatine Kinase 68 Troponin I < 0.02 Total Protein 6.2 L Albumin 3.5 Blood Type Antibody Screen 02/09/17 02/09/17 02/09/17 17:35 17:35 17:35 WBC RBC Hgb Hct MCV MCH MCHC RDW Plt Count MPV Neutrophils % Lymphocytes % Monocytes % Eosinophils % Basophils % INR PTT (Actin FS) 27.9 VBG pH POC VBG pCO2 POC VBG pO2 Mixed VBG HCO3 Sodium Potassium Chloride Carbon Dioxide Anion Gap BUN Creatinine Creat Clearance w eGFR Random Glucose Lactic Acid 1.1 Calcium Total Bilirubin AST ALT Alkaline Phosphatase Creatine Kinase Troponin I Total Protein Albumin Blood Type A POSITIVE Antibody Screen Negative 02/09/17 17:40 WBC RBC Hgb Hct MCV MCH MCHC RDW Plt Count MPV Neutrophils % Lymphocytes % Monocytes % Eosinophils % Basophils % INR PTT (Actin FS) VBG pH 7.44 H POC VBG pCO2 38.7 POC VBG pO2 44.2 Mixed VBG HCO3 25.5 H Sodium Potassium Chloride Carbon Dioxide Anion Gap BUN Creatinine Creat Clearance w eGFR Random Glucose Lactic Acid Calcium Total Bilirubin AST ALT Alkaline Phosphatase Creatine Kinase Troponin I Total Protein Albumin Blood Type Antibody Screen ASSESSMENT/PLAN: 86 yr old man with history of COPD presents with productive cough, exertional dyspnea, hypoxemia and fever admitted for community acquired pna or URI secondary to viral infection(given lack of infiltrate/effusion/consolidation in cxy and no leucocytosis). #community acquired pna -IV abx with azithromycin + rocephin - continous 02 2L via nasal cannula, escalate as needed - sputum cx, legionella and strep pneumo urine ag, bld cx pending - urine cx pending(low suspicion for uti as pt is asymptomatic) - spiriva and symbicort #HLD - lipitor po 40 mg hs - ASA 81mg po daily #Elevated BUN/Cr - likely prerenal due to poor po intake, Continue home medications for intermittent anxiety: escitalopram 10mg po hs prn Defer lasix for now since pt does not appear fluid overloaded Diet: regular Activity: ambulation with assistance due to sob Visit type - Emergency Visit Emergency Visit: Yes ED Registration Date: 02/09/17 Care time: The patient presented to the Emergency Department on the above date and was hospitalized for further evaluation of their emergent condition. - New Patient This patient is new to me today: Yes Date on this admission: 02/09/17 - Critical Care Critical Care patient: No
[2017-02-09 21:07] LABS: URINE LEUK ESTERASE 1+ (NEGATIVE)
[2017-02-09 21:08] LABS: URINE MUCUS FEW; URINE RBC 2 /hpf (0-3); URINE WBC 10 /hpf (3-5)
--- NOTE | 2017-02-09 21:35 | PN ---
Teaching Attending Note Name of Resident: Vida Eugene ATTENDING PHYSICIAN STATEMENT I saw and evaluated the patient. chart , data, imaging reviewed. I reviewed the resident's note and discussed the case with the resident. I agree with the resident's findings and plan as documented with modifications in note below. SUBJECTIVE: 86y M hx of COPD, lung nodule, htn, presented with SOB. Patient reports cough w/ some yellowish green sputum production. Fever of 101F in ER. Found to be hypoxemic initially. No chest pain or orthopnea. He denied any sick contacts, recent travels. He is a former smoker and has quit smoking over 30 years ago. No second hand smoke exposure. Remote history of hospitalization in the past for severe pneumonia. OBJECTIVE: Last Vital Signs Temp Pulse Resp BP Pulse Ox 98.1 F 68 18 128/51 96 02/09/17 19:29 02/09/17 21:10 02/09/17 21:10 02/09/17 21:10 02/09/17 21:10 General - NAD, appears comfortable heent - atraumatic, sclera clear, no pallor neck -supple, no masses cv -s1+s2+ RRR chest right basilar crackles appreciated abdomen - soft, nt, bs+, no masses appreciated ext no pitting edema skin- no rashes appreciated Abnormal Lab Results 02/09/17 02/09/17 02/09/17 17:35 17:35 17:40 INR 1.25 H VBG pH 7.44 H Mixed VBG HCO3 25.5 H BUN 26 H Random Glucose 120 H D AST 12 L Total Protein 6.2 L Ur Leukocyte Esterase 02/09/17 20:50 INR VBG pH Mixed VBG HCO3 BUN Random Glucose AST Total Protein Ur Leukocyte Esterase 1+ H EKG w/ no acute ST-T changes ASSESSMENT AND PLAN: CAP vs URI 2/2 to viral infection. CXR generally appears unchanged from old one , however patient c/o productive cough, hypoxemic w/ fever, right basilar crackles appreciated upon posterior chest auscultation, suggestive of possible PNA. CURB 65 reported as 2. -admit to med/surg -blood cx x2 -sputum culture -urine legionella antigen -supplemental 02 via nasal cannula -ceftriaxone 1g IV daily -azithromycin 500mg po daily -SCDs for DVT ppx - low fat, low 2 g sodium diet
[2017-02-10] MEDS ORDERED: ALBUTEROL SO4 0.083% IH SOL 2.5 MG/3 ML VIAL.NEB. NEB PRN (07:41)
[2017-02-10] MEDS ORDERED: ACETAMINOPHEN 325 MG TABLET (FP) PO PRN (07:41)
[2017-02-10] MEDS: methylPREDNISolone NA SUCC 40 MG/1 ML VIAL IVPB SCH ×3 (09:12→21:55)
[2017-02-10 09:50] LABS: MAGNESIUM 2.2 mg/dL (1.8-2.4)
[2017-02-10 09:51] LABS: TROPONIN I < 0.02 ng/ml (0.00-0.05)
[2017-02-10] MEDS ORDERED: HEPARIN NA (PORCINE) 5,000 UNITS/ML 1ML VIAL SQ SCH (10:00)
--- NOTE | 2017-02-10 11:10 | PN ---
Progress Note, Physician Chief Complaint: Some coughing but feels better. History of Present Illness: Patient with a history of COPD, Lung Nodule, Sinusitis, Anxiety, Hypertension, Insomnia and Hyperlipidemia comes to ER after experiencing a sudden difficulty to clear phlegm from his throat and a week of intermittent cough. When seen in the ER a CXR revealed possible early infiltrate so Admission advised. Less cough and SOB today. Pulmonary MD to see patient. WBC WNL. - Current Medication List Current Medications: Active Medications Acetaminophen (Tylenol -) 650 mg PO Q4H PRN PRN Reason: FEVER OR PAIN Albuterol Sulfate (Ventolin 0.083% Nebulizer Soln -) 1 amp NEB Q4H PRN PRN Reason: SHORT OF BREATH/WHEEZING Albuterol/Ipratropium (Duoneb -) 1 amp NEB QIDR QUETA Aspirin (Ecotrin -) 81 mg PO DAILY QUETA Atorvastatin Calcium (Lipitor -) 40 mg PO HS QUETA Budesonide/Formoterol Fumarate (Symbicort 80/4.5mcg -) 1 puff IH DAILY [facility] Escitalopram Oxalate (Lexapro -) 10 mg PO DAILY QUETA Azithromycin 500 mg/ Dextrose 250 mls @ 250 mls/hr IVPB DAILY QUETA Ceftriaxone Sodium 1 gm/ (Dextrose) 50 mls @ 100 mls/hr IVPB DAILY QUETA Stop: 02/11/17 19:59 Methylprednisolone Sodium Succinate (Solu-Medrol -) 40 mg IVPB Q6H-IV QUETA Last Admin: 02/10/17 09:12 Dose: 40 mg Tiotropium [place] (Spiriva -) puff IH DAILY [facility] - Objective Vital Signs: Vital Signs Temperature 98.6 F 02/10/17 09:00 Pulse Rate 62 02/10/17 09:00 Respiratory Rate 20 02/10/17 09:00 Blood Pressure 102/58 02/10/17 09:00 O2 Sat by Pulse Oximetry (%) 96 02/10/17 01:33 Constitutional: Yes: Anxious, Pallor Neck: Yes: Supple Cardiovascular: Yes: Regular Rate and Rhythm Respiratory: Yes: Diminished. No: Rales Gastrointestinal: Yes: Soft Genitourinary: No: Dong Present Edema: No Neurological: Yes: Alert, Oriented Psychiatric: Yes: Other (anxious) Labs: INR, PTT INR 1.25 (0.82-1.09) H 02/09/17 17:35 - ....Imaging Chest X-ray: Report Reviewed Problem List - Problems (1) Pneumonia Assessment/Plan: Patient on IV antibiotics. Code(s): J18.9 - PNEUMONIA, UNSPECIFIED ORGANISM Qualifiers: Pneumonia type: due to unspecified organism Laterality: left Lung location: lower lobe of lung Qualified Code(s): J18.1 - Lobar pneumonia, unspecified organism (2) COPD exacerbation Assessment/Plan: Patient is Ex-smoker and has been followed by Dr. Smallwood for COPD and pulmonary nodule. (3) Hyperlipidemia Assessment/Plan: On Rx. Code(s): E78.5 - HYPERLIPIDEMIA, UNSPECIFIED (4) Hypertension Assessment/Plan: Stable; on Rx. Code(s): I10 - ESSENTIAL (PRIMARY) HYPERTENSION Qualifiers: Hypertension type: essential hypertension Qualified Code(s): I10 - Essential (primary) hypertension (5) Anxiety about health Assessment/Plan: Also has insomnia and uses Ambien HS. Code(s): F41.8 - OTHER SPECIFIED ANXIETY DISORDERS (6) Lung nodule seen on imaging study Assessment/Plan: Followed by Dr. Smallwood and has been stable. Code(s): R91.1 - SOLITARY PULMONARY NODULE
[2017-02-10] MEDS: ALBUTEROL SO4 2.5/IPRATROPIUM 0.5 INH SOL 3 ML VIAL.NEB. NEB SCH ×2 (11:11→18:42)
--- NOTE | 2017-02-10 11:29 | CON.PULM ---
Consult Consult Specialty:: PULMONARY Referred by:: Dr. Black Reason for Consultation:: pneumonia - History of Present Illness Chief Complaint: shortness of breath History of Present Illness: 86yo male with h/o hyperlipidemia, COPD with home O2 which he does not really use, lung nodules who presents with worsening shortness of breath and cough x 2 days. Reports subjective fevers and chills and a cough productive of yellow sputum. No chest pain or palpitations. Does report increased wheezing as well. He is maintained at home on Spiriva and Symbicort. Febrile to 101.3 on admission. Last pneumonia was 3 years ago, has not been hospitalized recently but may have taken antibiotics 2-3 months for URI. He was a heavy smoker in the past, quit about 30 yrs ago but was smoking about 2 PPD until he quit. - History Source History Provided By: Patient, Medical Record Limitations to Obtaining History: No Limitations - Past Medical History Cardio/Vascular: Yes: HTN, Hyperlipdemia Pulmonary: Yes: COPD, Pneumonia Psych: Yes: Anxiety - Alcohol/Substance Use Hx Alcohol Use: No History of Substance Use: reports: None - Smoking History Smoking history: Former smoker Have you smoked in the past 12 months: No Aproximately how many cigarettes per day: 0 If you are a former smoker, when did you quit?: 35yrs - Social History ADL: Independent Occupation: retired History of Recent Travel: No Home Medications - Allergies Allergies/Adverse Reactions: Allergies Allergy/AdvReac Type Severity Reaction Status Date / Time No Known Drug Allergies Allergy Verified 02/09/17 17:33 shrimp Allergy Unknown lip Uncoded 02/09/17 17:33 swelling - Home Medications Home Medications: Ambulatory Orders Tiotropium [place] [Spiriva] 18 mcg IH DAILY 06/23/11 Budesonide/Formeterol Fumarate [SYMBICORT 80/4.5mcg -] 1 inh PO DAILY 02/15/15 Aspirin Coated [Ecotrin -] 81 mg PO DAILY tablet.ec 11/20/15 Atorvastatin Ca [Lipitor] 40 mg PO HS tablet 11/20/15 Escitalopram Oxalate [Lexapro -] 10 mg PO DAILY 02/10/17 Family Disease History - Family Disease History Family Disease History: Respiratory: Father, Other: Mother (sinus issues) Review of Systems - Review of Systems Constitutional: reports: Chills, Fever, Malaise, Weakness Eyes: denies: Recent Change in Vision HENT: denies: Nasal Congestion, Throat Pain Neck: denies: Stiffness, Tenderness Cardiovascular: reports: Shortness of Breath. denies: Chest Pain, Edema, Palpitations Respiratory: reports: Cough, SOB, SOB on Exertion, Wheezing. denies: Hemoptysis Gastrointestinal: denies: Abdominal Pain, Nausea, Vomiting Genitourinary: denies: Dysuria, Hematuria Neurological: denies: Dizziness, Headache Physical Exam Vital Sings: Vital Signs Temperature 98.6 F 02/10/17 09:00 Pulse Rate 62 02/10/17 09:00 Respiratory Rate 20 02/10/17 09:00 Blood Pressure 102/58 02/10/17 09:00 O2 Sat by Pulse Oximetry (%) 96 02/10/17 01:33 Constitutional: Yes: Calm Eyes: Yes: Conjunctiva Clear, EOM Intact HENT: Yes: Atraumatic, Normocephalic Neck: Yes: Supple, Trachea Midline Cardiovascular: Yes: Regular Rate and Rhythm Respiratory: Yes: Regular, Rales (right base) ...Clubbing: No Gastrointestinal: Yes: Normal Bowel Sounds, Soft. No: Tenderness Edema: No Imaging - Results Chest X-ray: Report Reviewed, Image Reviewed (RLL infiltrate) Problem List - Problems (1) Pneumonia Code(s): J18.9 - PNEUMONIA, UNSPECIFIED ORGANISM Qualifiers: Pneumonia type: due to unspecified organism Laterality: left Lung location: lower lobe of lung Qualified Code(s): J18.1 - Lobar pneumonia, unspecified organism (2) COPD exacerbation Code(s): J44.1 - CHRONIC OBSTRUCTIVE PULMONARY DISEASE W (ACUTE) EXACERBATION (3) Lung nodule seen on imaging study Code(s): R91.1 - SOLITARY PULMONARY NODULE (4) Hyperlipidemia Code(s): E78.5 - HYPERLIPIDEMIA, UNSPECIFIED Assessment/Plan Pneumonia Acute COPD Exacerbation Emphysema Lung Nodule Hyperlipidemia - agree with ceftriaxone/azithromycin - f/u cultures - O2 to keep SpO2 >90% - IV medrol - inhaled bronchodilators - will need outpt follow up of lung nodule - DVT prophylaxis Thank you for this consult Jacobo Ceron MD
--- NOTE | 2017-02-10 12:51 | EKG ---
Test Reason : Blood Pressure : / mmHG Vent. 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
[2017-02-10] MEDS: ENOXAPARIN NA (PORCINE) 30 MG/0.3 ML DISP.SYRIN SQ SCH (14:34)
[2017-02-10] MEDS ORDERED: cefTRIAXone SODIUM 1 GM VIAL ONE (20:21)
[2017-02-10] MEDS ORDERED: DEXTROSE 5%-WATER - 50 ML IVPB ONE (20:21)
[2017-02-10] MEDS: CEFTRIAXONE 1 GM in DEXTROSE 5%-WATER - 50 ML IVPB SCH (20:38)
[2017-02-10] MEDS: AZITHROMYCIN IVPB 250 ML IVPB SCH (21:00)
[2017-02-10] MEDS: ATORVASTATIN CA 40 MG TABLET (FP) PO SCH (21:55)
[2017-02-11] MEDS: ALBUTEROL SO4 2.5/IPRATROPIUM 0.5 INH SOL 3 ML VIAL.NEB. NEB SCH ×3 (00:18→18:12)
[2017-02-11] MEDS: methylPREDNISolone NA SUCC 40 MG/1 ML VIAL IVPB SCH ×4 (03:00→21:20)
[2017-02-11 09:08] LABS: BASOPHIL 0.1 % (0-2.0); MCH 30.1 pg (25.7-33.7); MCHC 33.5 g/dl (32.0-35.9); MEAN CELL VOLUME 89.8 fl (80-96); MEAN PLT VOLUME 8.1 fl (7.5-11.1); NEUTROPHILS 84.8 % (42.8-82.8); PLATELET COUNT 253 K/MM3 (134-434); RDW 15.9 % (11.9-15.9); WHITE BLOOD COUNT 17.4 K/mm3 (4.0-10.0)
--- NOTE | 2017-02-11 09:43 | PN ---
Progress Note (short form) - Note Progress Note: Patient still has some coughing but no chills or temp. Upset stomach yesterday; better today. Will add PPI as he is on Steroids. WBC higher due to steroids. ? Early infiltrate on CXR. On Exam: Vital Signs Temp 97.6 F 02/11/17 06:00 Pulse 59 L 02/11/17 06:00 Resp 18 02/11/17 06:00 BP 121/62 02/11/17 06:00 Pulse Ox 96 02/10/17 21:00 Intake & Output 02/10/17 02/10/17 02/11/17 11:59 23:59 11:59 Intake Total 475 700 Output Total 300 Balance 175 700 Weight 170 lb 6.4 oz Intake: IV 0 S/L 0 Oral 475 700 Output: Urine 300 Void 300 Other: Voiding Method Toilet Toilet # Unmeasured Voids Void 2 3 Bowel Movement No No Weight Measurement Method Built in Bedscale Alert Chest: Decreased breath sounds Cor: Reg Abd: Increased bowel sounds; non tender Ext: No edema Abnormal Lab Results 02/11/17 08:00 WBC 17.4 H D Neutrophils % 84.8 H D Monocytes % 2.0 L IMP: COPD with Acute Exacerbation ? Pneumonia Hx Sinusitis Hypertension Hyperlipidmia Anxiety PLAN: add PPI Senekpt F/U Pulmonary MD Problem List - Problems (1) Pneumonia Code(s): J18.9 - PNEUMONIA, UNSPECIFIED ORGANISM Qualifiers: Pneumonia type: due to unspecified organism Laterality: left Lung location: lower lobe of lung Qualified Code(s): J18.1 - Lobar pneumonia, unspecified organism (2) COPD exacerbation (3) Hyperlipidemia Code(s): E78.5 - HYPERLIPIDEMIA, UNSPECIFIED (4) Hypertension Code(s): I10 - ESSENTIAL (PRIMARY) HYPERTENSION Qualifiers: Hypertension type: essential hypertension Qualified Code(s): I10 - Essential (primary) hypertension (5) Anxiety about health Code(s): F41.8 - OTHER SPECIFIED ANXIETY DISORDERS (6) Lung nodule seen on imaging study Code(s): R91.1 - SOLITARY PULMONARY NODULE
[2017-02-11 10:20] LABS: ANION GAP 9 (8-16); CO2 28 mmol/L (21-32); CREATININE 0.8 mg/dL (0.7-1.3); GLUCOSE,RANDOM 145 mg/dL (74-106)
[2017-02-11] MEDS ORDERED: DEXTROSE 5%-WATER - 50 ML IVPB ONE (11:29)
[2017-02-11] MEDS ORDERED: cefTRIAXone SODIUM 1 GM VIAL ONE (11:29)
[2017-02-11] MEDS: ENOXAPARIN NA (PORCINE) 30 MG/0.3 ML DISP.SYRIN SQ SCH (11:45)
[2017-02-11] MEDS: PANTOPRAZOLE 40 MG TABLET (FP) PO SCH (11:45)
[2017-02-11] MEDS: ASPIRIN COATED 81 MG TABLET.EC PO SCH (11:45)
[2017-02-11] MEDS: ESCITALOPRAM OXALATE 10 MG TABLET (FP) PO SCH (11:45)
[2017-02-11] MEDS: CEFTRIAXONE 1 GM in DEXTROSE 5%-WATER - 50 ML IVPB SCH (11:47)
[2017-02-11] MEDS: AZITHROMYCIN IVPB 250 ML IVPB SCH (11:48)
--- NOTE | 2017-02-11 12:29 | PN ---
Progress Note, Physician History of Present Illness: pulmonary feeling better,less dyspneic,less cough - Current Medication List Current Medications: Active Medications Acetaminophen (Tylenol -) 650 mg PO Q4H PRN PRN Reason: FEVER OR PAIN Albuterol Sulfate (Ventolin 0.083% Nebulizer Soln -) 1 amp NEB Q4H PRN PRN Reason: SHORT OF BREATH/WHEEZING Albuterol/Ipratropium (Duoneb -) 1 amp NEB QIDR [facility] Last Admin: 02/11/17 06:00 Dose: 1 amp Aspirin (Ecotrin -) 81 mg PO DAILY [facility] Last Admin: 02/11/17 11:45 Dose: 81 mg Atorvastatin Calcium (Lipitor -) 40 mg PO HS [facility] Last Admin: 02/10/17 21:55 Dose: 40 mg Budesonide/Formoterol Fumarate (Symbicort 80/4.5mcg -) 1 puff IH DAILY [facility] Enoxaparin Sodium (Lovenox -) 30 mg SQ DAILY [facility] Last Admin: 02/11/17 11:45 Dose: 30 mg Escitalopram Oxalate (Lexapro -) 10 mg PO DAILY [facility] Last Admin: 02/11/17 11:45 Dose: 10 mg Azithromycin (Zithromax 500mg Ivpb (Pre-Docked)) 250 mls @ 250 mls/hr IVPB DAILY [facility] Last Admin: 02/11/17 11:48 Dose: 250 mls/hr Ceftriaxone Sodium 1 gm/ (Dextrose) 50 mls @ 100 mls/hr IVPB DAILY [facility] Stop: 02/11/17 19:59 Last Admin: 02/11/17 11:47 Dose: 100 mls/hr Methylprednisolone Sodium Succinate (Solu-Medrol -) 40 mg IVPB Q6H-IV [facility] Last Admin: 02/11/17 11:45 Dose: 40 mg Pantoprazole Sodium (Protonix -) 40 mg PO DAILY [facility] Last Admin: 02/11/17 11:45 Dose: 40 mg Senna (Senna -) 1 tab PO HS [facility] Tiotropium [place] (Spiriva -) puff IH DAILY [facility] - Objective Vital Signs: Vital Signs Temperature 97.6 F 02/11/17 06:00 Pulse Rate 59 L 02/11/17 06:00 Respiratory Rate 18 02/11/17 06:00 Blood Pressure 121/62 02/11/17 06:00 O2 Sat by Pulse Oximetry (%) 96 02/10/17 21:00 Constitutional: Yes: Well Nourished, Calm Eyes: Yes: WNL HENT: Yes: WNL Neck: Yes: WNL Cardiovascular: Yes: Regular Rate and Rhythm, S1, S2 Respiratory: Yes: Diminished, Rales (few crackles) Gastrointestinal: Yes: Normal Bowel Sounds, Soft Extremities: Yes: WNL Edema: No Labs: CBC, BMP 02/11/17 08:00 02/11/17 08:00 INR, PTT INR 1.25 (0.82-1.09) H 02/09/17 17:35 Assessment/Plan Problem List - Problems (1) Pneumonia Code(s): J18.9 - PNEUMONIA, UNSPECIFIED ORGANISM Qualifiers: Pneumonia type: due to unspecified organism Laterality: left Lung location: lower lobe of lung Qualified Code(s): J18.1 - Lobar pneumonia, unspecified organism (2) COPD exacerbation Code(s): J44.1 - CHRONIC OBSTRUCTIVE PULMONARY DISEASE W (ACUTE) EXACERBATION (3) Lung nodule seen on imaging study Code(s): R91.1 - SOLITARY PULMONARY NODULE (4) Hyperlipidemia Code(s): E78.5 - HYPERLIPIDEMIA, UNSPECIFIED Assessment/Plan Pneumonia Acute COPD Exacerbation Emphysema Lung Nodule Hyperlipidemia - ceftriaxone/azithromycin - O2 to keep SpO2 >90% - IV medrol - inhaled bronchodilators - DVT prophylaxis - chest ct DR HEATH
[2017-02-11] MEDS: ATORVASTATIN CA 40 MG TABLET (FP) PO SCH (21:19)
[2017-02-11] MEDS: SENNOSIDES 8.6MG TABLET (FP) PO SCH ×2 (21:19→21:23)
[2017-02-12] MEDS: ALBUTEROL SO4 2.5/IPRATROPIUM 0.5 INH SOL 3 ML VIAL.NEB. NEB SCH ×2 (00:05→06:45)
[2017-02-12] MEDS: methylPREDNISolone NA SUCC 40 MG/1 ML VIAL IVPB SCH ×3 (02:42→14:27)
[2017-02-12 08:35] LABS: MCH 29.6 pg (25.7-33.7); MCHC 32.8 g/dl (32.0-35.9); MEAN CELL VOLUME 90.1 fl (80-96); NEUTROPHILS 81.8 % (42.8-82.8); PLATELET COUNT 270 K/MM3 (134-434); RDW 16.1 % (11.9-15.9); WHITE BLOOD COUNT 16.5 K/mm3 (4.0-10.0)
--- NOTE | 2017-02-12 10:34 | PN ---
Progress Note, Physician Chief Complaint: Less coughing. History of Present Illness: Patient with COPD admitted with pneumonia and mild pleural effusion. CAT scan confirms previous Nodules. Seen by Pulmonary MD and IV steroids and antibiotics. Had BM. No nite sweats or chills. - Current Medication List Current Medications: Active Medications Acetaminophen (Tylenol -) 650 mg PO Q4H PRN PRN Reason: FEVER OR PAIN Albuterol Sulfate (Ventolin 0.083% Nebulizer Soln -) 1 amp NEB Q4H PRN PRN Reason: SHORT OF BREATH/WHEEZING Aspirin (Ecotrin -) 81 mg PO DAILY [facility] Last Admin: 02/11/17 11:45 Dose: 81 mg Atorvastatin Calcium (Lipitor -) 40 mg PO HS [facility] Last Admin: 02/11/17 21:19 Dose: 40 mg Budesonide/Formoterol Fumarate (Symbicort 80/4.5mcg -) 2 puff IH BID [facility] Enoxaparin Sodium (Lovenox -) 30 mg SQ DAILY [facility] Last Admin: 02/11/17 11:45 Dose: 30 mg Escitalopram Oxalate (Lexapro -) 10 mg PO DAILY [facility] Last Admin: 02/11/17 11:45 Dose: 10 mg Azithromycin (Zithromax 500mg Ivpb (Pre-Docked)) 250 mls @ 250 mls/hr IVPB DAILY [facility] Last Admin: 02/11/17 11:48 Dose: 250 mls/hr Methylprednisolone Sodium Succinate (Solu-Medrol -) 40 mg IVPB Q6H-IV [facility] Last Admin: 02/12/17 02:42 Dose: 40 mg Pantoprazole Sodium (Protonix -) 40 mg PO DAILY [facility] Last Admin: 02/11/17 11:45 Dose: 40 mg Senna (Senna -) 1 tab PO HS [facility] Last Admin: 02/11/17 21:23 Dose: Not Given Tiotropium [place] (Spiriva -) puff IH DAILY [facility] - Objective Vital Signs: Vital Signs Temperature 98.0 F 02/12/17 06:28 Pulse Rate 60 02/12/17 06:28 Respiratory Rate 20 02/12/17 06:28 Blood Pressure 108/61 02/12/17 06:28 O2 Sat by Pulse Oximetry (%) 96 02/11/17 08:00 Constitutional: Yes: Calm Cardiovascular: Yes: Regular Rate and Rhythm Respiratory: Yes: Diminished, Rhonchi (rare rhonchi left base.) Gastrointestinal: Yes: Soft Genitourinary: No: Dong Present Edema: No Neurological: Yes: Alert, Oriented Labs: CBC, BMP 02/12/17 07:00 02/11/17 08:00 INR, PTT INR 1.25 (0.82-1.09) H 02/09/17 17:35 - ....Imaging Cat Scan: Report Reviewed Problem List - Problems (1) Pneumonia Assessment/Plan: ON IV antibiotics: CT noted. Code(s): J18.9 - PNEUMONIA, UNSPECIFIED ORGANISM Qualifiers: Pneumonia type: due to unspecified organism Laterality: left Lung location: lower lobe of lung Qualified Code(s): J18.1 - Lobar pneumonia, unspecified organism (2) COPD exacerbation Assessment/Plan: On IV Steroids and Symbicort and Spiriva (3) Hyperlipidemia Assessment/Plan: On Rx. Code(s): E78.5 - HYPERLIPIDEMIA, UNSPECIFIED (4) Hypertension Assessment/Plan: Stable BP. 108/61 Code(s): I10 - ESSENTIAL (PRIMARY) HYPERTENSION Qualifiers: Hypertension type: essential hypertension Qualified Code(s): I10 - Essential (primary) hypertension (5) Anxiety about health Assessment/Plan: Relaxed now but still has anxiety about his health; we discussed the problem. Code(s): F41.8 - OTHER SPECIFIED ANXIETY DISORDERS (6) Lung nodule seen on imaging study Code(s): R91.1 - SOLITARY PULMONARY NODULE
[2017-02-12] MEDS ORDERED: methylPREDNISolone NA SUCC 125 MG/2 ML VIAL ONE (10:40)
[2017-02-12] MEDS: AZITHROMYCIN IVPB 250 ML IVPB SCH (10:50)
[2017-02-12] MEDS: ESCITALOPRAM OXALATE 10 MG TABLET (FP) PO SCH (10:50)
[2017-02-12] MEDS: ENOXAPARIN NA (PORCINE) 30 MG/0.3 ML DISP.SYRIN SQ SCH (10:50)
[2017-02-12] MEDS: ASPIRIN COATED 81 MG TABLET.EC PO SCH (10:50)
[2017-02-12] MEDS: PANTOPRAZOLE 40 MG TABLET (FP) PO SCH (10:50)
[2017-02-12] MEDS: BUDESONIDE/FORMETEROL FUMARATE 80/4.5 mcg INHALER IH SCH ×2 (13:16→21:42)
[2017-02-12] MEDS: TIOTROPIUM BROMIDE 18 MCG/INH (DEVICE W/ 5 CAPSULES) IH SCH (13:16)
--- NOTE | 2017-02-12 16:16 | PN ---
Progress Note, Physician History of Present Illness: pulmonary alert,feeling better,less dyspneic. - Current Medication List Current Medications: Active Medications Acetaminophen (Tylenol -) 650 mg PO Q4H PRN PRN Reason: FEVER OR PAIN Albuterol Sulfate (Ventolin 0.083% Nebulizer Soln -) 1 amp NEB Q4H PRN PRN Reason: SHORT OF BREATH/WHEEZING Aspirin (Ecotrin -) 81 mg PO DAILY [facility] Last Admin: 02/12/17 10:50 Dose: 81 mg Atorvastatin Calcium (Lipitor -) 40 mg PO HS [facility] Last Admin: 02/11/17 21:19 Dose: 40 mg Budesonide/Formoterol Fumarate (Symbicort 80/4.5mcg -) 2 puff IH BID [facility] Last Admin: 02/12/17 13:16 Dose: 2 inh Enoxaparin Sodium (Lovenox -) 30 mg SQ DAILY [facility] Last Admin: 02/12/17 10:50 Dose: 30 mg Escitalopram Oxalate (Lexapro -) 10 mg PO DAILY [facility] Last Admin: 02/12/17 10:50 Dose: 10 mg Azithromycin (Zithromax 500mg Ivpb (Pre-Docked)) 250 mls @ 250 mls/hr IVPB DAILY [facility] Last Admin: 02/12/17 10:50 Dose: 250 mls/hr Methylprednisolone Sodium Succinate (Solu-Medrol -) 40 mg IVPB Q6H-IV [facility] Last Admin: 02/12/17 14:27 Dose: 40 mg Pantoprazole Sodium (Protonix -) 40 mg PO DAILY [facility] Last Admin: 02/12/17 10:50 Dose: 40 mg Senna (Senna -) 1 tab PO HS [facility] Last Admin: 02/11/17 21:23 Dose: Not Given Tiotropium [place] (Spiriva -) 1 puff IH DAILY [facility] Last Admin: 02/12/17 13:16 Dose: 1 inh - Objective Vital Signs: Vital Signs Temperature 97.5 F L 02/12/17 13:40 Pulse Rate 53 L 02/12/17 13:40 Respiratory Rate 17 02/12/17 13:40 Blood Pressure 113/53 02/12/17 13:40 O2 Sat by Pulse Oximetry (%) 96 02/12/17 08:00 Constitutional: Yes: Well Nourished, Calm Eyes: Yes: WNL HENT: Yes: WNL Neck: Yes: WNL Cardiovascular: Yes: Regular Rate and Rhythm, S1, S2 Respiratory: Yes: Rales (crackles left base) Gastrointestinal: Yes: Normal Bowel Sounds, Soft Extremities: Yes: WNL Edema: No Labs: CBC, BMP 02/12/17 07:00 02/11/17 08:00 INR, PTT INR 1.25 (0.82-1.09) H 02/09/17 17:35 - ....Imaging Cat Scan: Report Reviewed, Image Reviewed (LLL infitrate/effusion) Assessment/Plan Problem List - Problems (1) Pneumonia Code(s): J18.9 - PNEUMONIA, UNSPECIFIED ORGANISM Qualifiers: Pneumonia type: due to unspecified organism Laterality: left Lung location: lower lobe of lung Qualified Code(s): J18.1 - Lobar pneumonia, unspecified organism (2) COPD exacerbation Code(s): J44.1 - CHRONIC OBSTRUCTIVE PULMONARY DISEASE W (ACUTE) EXACERBATION (3) Lung nodule seen on imaging study Code(s): R91.1 - SOLITARY PULMONARY NODULE (4) Hyperlipidemia Code(s): E78.5 - HYPERLIPIDEMIA, UNSPECIFIED Assessment/Plan Pneumonia Acute COPD Exacerbation Emphysema Lung Nodule Hyperlipidemia - ceftriaxone/azithromycin - O2 to keep SpO2 >90% - taper medrol - inhaled bronchodilators - DVT prophylaxis DR HEATH
[2017-02-12] MEDS: SENNOSIDES 8.6MG TABLET (FP) PO SCH (21:41)
[2017-02-12] MEDS: ATORVASTATIN CA 40 MG TABLET (FP) PO SCH (21:41)
[2017-02-12] MEDS ORDERED: methylPREDNISolone NA SUCC 40 MG/1 ML VIAL IVPB SCH (22:00)
[2017-02-13] MEDS ORDERED: FUROSEMIDE 40 MG/4 ML INJECTABLE VIAL IVPB ONE (08:10)
--- NOTE | 2017-02-13 08:21 | DS ---
Physical Examination Vital Signs: Vital Signs Temperature 97.4 F L 02/12/17 17:00 Pulse Rate 60 02/12/17 21:00 Respiratory Rate 20 02/12/17 21:00 Blood Pressure 100/60 02/12/17 21:00 O2 Sat by Pulse Oximetry (%) 97 02/12/17 21:00 Constitutional: Yes: Anxious Eyes: Yes: Conjunctiva Clear Cardiovascular: Yes: Regular Rate and Rhythm Respiratory: Yes: Diminished, On Nasal O2. No: Wheezes Gastrointestinal: Yes: Soft Edema: LLE: 1+, RLE: 1+ Neurological: Yes: Alert, Oriented Labs: CBC, BMP 02/11/17 08:00 Discharge Summary Reason For Visit: PNEUMONIA Current Active Problems Anxiety about health (Acute) COPD exacerbation (Acute) Lung nodule seen on imaging study (Acute) Pneumonia (Acute) Procedures: Principal: CAT SCAN LUNGS. IV RX Other Procedures: F/U lab. CXR Hospital Course: Slowly improved with IV Rx and Pulmonary MD F/U Condition: Stable - Instructions Diet, Activity, Other Instructions: No added salt Followup with Dr. Dahl within [address] Smallwood for an appt. Try to sit outside or go for some walks on warm pleasant days Referrals: Neeraj Smallwood MD [Staff Physician] - Nile Dahl MD [Primary Care Provider] - Disposition: HOME - Home Medications Comprehensive Discharge Medication List: Ambulatory Orders Tiotropium [place] [Spiriva] 18 mcg IH DAILY 06/23/11 Budesonide/Formeterol Fumarate [SYMBICORT 80/4.5mcg -] 1 inh PO DAILY 02/15/15 Aspirin Coated [Ecotrin -] 81 mg PO DAILY tablet.ec 11/20/15 Atorvastatin Ca [Lipitor] 40 mg PO HS tablet 11/20/15 Escitalopram Oxalate [Lexapro -] 10 mg PO DAILY 02/10/17 Acetaminophen [Tylenol .Regular Strength -] 650 mg PO Q4H PRN #0 tablet Albuterol 0.083% Nebulizer [place] [Ventolin 0.083% Nebulizer Soln -] 1 amp NEB Q4H PRN #0 amp 02/13/17 Azithromycin [Zithromax 250mg Tablets -] 500 mg PO DAILY #7 tablet 02/13/17 Pantoprazole Sodium [Protonix -] 40 mg PO DAILY #30 cap 02/13/17 Prednisone [Deltasone -] 40 mg PO DAILY #30 tablet 02/13/17 Sennosides [Senna -] 1 tab PO HS tablet 02/13/17
[2017-02-13 08:22] LABS: BASOPHIL 0.1 % (0-2.0); MCH 29.6 pg (25.7-33.7); MCHC 32.6 g/dl (32.0-35.9); MEAN CELL VOLUME 90.9 fl (80-96); MEAN PLT VOLUME 7.7 fl (7.5-11.1); NEUTROPHILS 73.4 % (42.8-82.8); PLATELET COUNT 291 K/MM3 (134-434); RDW 16.1 % (11.9-15.9); WHITE BLOOD COUNT 16.9 K/mm3 (4.0-10.0)
[2017-02-13 08:39] VITALS: BP 130/55; PULSE 58; TEMP 98.2
[2017-02-13] MEDS ORDERED: PT OWN MED DRAWER 7, Y5N ONE (09:28)
[2017-02-13] MEDS: ASPIRIN COATED 81 MG TABLET.EC PO SCH (09:38)
[2017-02-13] MEDS: ENOXAPARIN NA (PORCINE) 30 MG/0.3 ML DISP.SYRIN SQ SCH (09:38)
[2017-02-13] MEDS: PANTOPRAZOLE 40 MG TABLET (FP) PO SCH (09:38)
[2017-02-13] MEDS: ESCITALOPRAM OXALATE 10 MG TABLET (FP) PO SCH (09:38)
[2017-02-13] MEDS: BUDESONIDE/FORMETEROL FUMARATE 80/4.5 mcg INHALER IH SCH (09:39)
[2017-02-13] MEDS: TIOTROPIUM BROMIDE 18 MCG/INH (DEVICE W/ 5 CAPSULES) IH SCH (09:39)
[2017-02-13] MEDS ORDERED: predniSONE 20 MG TABLET (UD) PO SCH (10:00)
[2017-02-13] MEDS ORDERED: AZITHROMYCIN 250 MG TABLET (FP) PO SCH (10:00)
== END 2017-02-13 12:18 | disposition home or self-care (01) | DRG 190 ==
LOC: JER 16:38 → JERBED 20:15 → J6S 02-10 01:18
PROVIDERS: ADMIT Internal Medicine; ATTEND Internal Medicine
PROC: 3E0F7GC Introduction of Other Therapeutic Substance into Respiratory Tract, Via Natural or Artificial Opening (ICD-10-PCS; principal; 2017-02-09)
DX: J44.1 Chronic obstructive pulmonary disease with (acute) exacerbation (principal); J18.9 Pneumonia, unspecified organism; R09.02 Hypoxemia; R91.1 Solitary pulmonary nodule; I10 Essential (primary) hypertension; E78.00 Pure hypercholesterolemia, unspecified; Z87.891 Personal history of nicotine dependence; F41.9 Anxiety disorder, unspecified
CPT/HCPCS: 36415; 71010-TC; 71250-TC; 80048; 80053; 81003; 81015; 82803; 83605; 83735; 84100; 84484; 85025; 85610; 85730; 86850; 86900; 86901; 87040; 87070; 87086; 87205; 87899; 93005; 93010; 94640; 99284-25

== ENCOUNTER 2017-03-18 12:59 | Inpatient (IN) | payer OTHER, BC ==
[2017-03-18 13:19] VITALS: BMI 25.1
--- NOTE | 2017-03-18 15:09 | PDOC ---
History of Present Illness <Vu Jefferson - Last Filed: 03/18/17 18:56> - General History Source: Patient Exam Limitations: No Limitations - History of Present Illness Initial Comments: 03/18/17 16:21 Patient is a 86 year old male with a significant past medical history of Emphysema, pneumonia, COPD(not on home o2), HLD, pulmonary nodule, continous post-nasal drip, who presents to the ED with complaints of chronic cough that began 4 days ago. Patient reports cough began 4 days and was instructed by PMD to return to ED if any coughing begins. He reports the chronic cough is productive with phlegm that he states have a yellow and green coloration. Patient reports slight difficulty breathing, and intermittent chills secondary to coughing. He reports slight leg edema bilaterally that he states occasionally flare up but prescribed water pills reduces swelling. Denies chest pain, fever. Denies nausea, vomiting. Denies headache, lightheadedness. Denies contact with sick individuals. Denies out of state travel. Denies any other symptoms. Allergies: Shrimp (Swelling) Social history: Former smoker (smoked for 35 years ). Social drinker. No illicit drugs. Surgical history: None PMD: Dr. Smallwood. 03/18/17 18:59 <Jacky Gross - Last Filed: 03/18/17 19:00> - General Chief Complaint: Shortness of Breath Stated Complaint: SOB (PCP SENT) Time Seen by Provider: 03/18/17 15:08 Past History - Past Medical History Cancer: Yes (Lung Nodule (?)) COPD: Yes HTN: Yes Hypercholesterolemia: Yes - Immunization History Immunization Up to Date: Yes - Suicide/Smoking/Psychosocial Hx Smoking Status: Yes Smoking History: Former smoker Have you smoked in the past 12 months: No Number of Cigarettes Smoked Daily: 0 If you are a former smoker, when did you quit?: 1992 Information on smoking cessation initiated: No Hx Alcohol Use: No Drug/Substance Use Hx: No Substance Use Type: None <Vu Jefferson - Last Filed: 03/18/17 18:56> <Jacky Gross - Last Filed: 03/18/17 19:00> - Past Medical History Allergies/Adverse Reactions: Allergies Allergy/AdvReac Type Severity Reaction Status Date / Time No Known Drug Allergies Allergy Verified 03/18/17 13:16 shrimp Allergy Unknown lip Uncoded 03/18/17 13:16 swelling Home Medications: Ambulatory Orders Tiotropium [place] [Spiriva] 18 mcg IH DAILY 06/23/11 Budesonide/Formeterol Fumarate [SYMBICORT 80/4.5mcg -] 1 inh PO DAILY 02/15/15 Aspirin Coated [Ecotrin -] 81 mg PO DAILY tablet.ec 11/20/15 Atorvastatin Ca [Lipitor] 40 mg PO HS tablet 11/20/15 Escitalopram Oxalate [Lexapro -] 10 mg PO DAILY 02/10/17 Acetaminophen [Tylenol .Regular Strength -] 650 mg PO Q4H PRN #0 tablet Albuterol 0.083% Nebulizer Joy [Ventolin 0.083% Nebulizer Soln -] 1 amp NEB Q4H PRN #0 amp 02/13/17 Review of Systems - Review of Systems Able to Perform ROS?: Yes Comments:: 03/18/17 16:21 GENERAL/CONSTITUTIONAL: No fever or chills. No weakness. HEAD, EYES, EARS, NOSE AND THROAT: No change in vision. No ear pain or discharge. No sore throat. CARDIOVASCULAR: No chest pain or shortness of breath. RESPIRATORY: +Coughing No wheezing, or hemoptysis. GASTROINTESTINAL: No nausea, vomiting, diarrhea or constipation. GENITOURINARY: No dysuria, frequency, or change in urination. MUSCULOSKELETAL: No joint or muscle swelling or pain. No neck or back pain. SKIN: No rash NEUROLOGIC: No headache, vertigo, loss of consciousness, or change in strength/ sensation. ENDOCRINE: No increased thirst. No abnormal weight change. HEMATOLOGIC/LYMPHATIC: No anemia, easy bleeding, or history of blood clots. ALLERGIC/IMMUNOLOGIC: No hives or skin allergy. All Other Systems: Reviewed and Negative <Jacky Gross - Last Filed: 03/18/17 19:00> *Physical Exam - Vital Signs Last Vital Signs Temp Pulse Resp BP Pulse Ox 98.3 F 79 22 150/58 92 L 03/18/17 13:17 03/18/17 13:17 03/18/17 13:17 03/18/17 13:17 03/18/17 13:17 <Vu Jefferson - Last Filed: 03/18/17 18:56> - Vital Signs Last Vital Signs Temp Pulse Resp BP Pulse Ox 98.3 F 79 22 150/58 92 L 03/18/17 13:17 03/18/17 13:17 03/18/17 13:17 03/18/17 13:17 03/18/17 13:17 - Physical Exam Comments: 03/18/17 16:21 GENERAL: Awake, alert, and fully oriented, in no acute distress HEAD: No signs of trauma EYES: PERRLA, EOMI, sclera anicteric, conjunctiva clear ENT: +Erythema Auricles normal inspection, hearing grossly normal, nares patent, oropharynx clear without exudates. Moist mucosa NECK: Normal ROM, supple, no lymphadenopathy, JVD, or masses LUNGS: +Bilateral rhonchi, right lung worst than left. Breath sounds equal, clear to auscultation bilaterally. No wheezes, and no crackles HEART: +2/6 systolic murmur, at 5th intercostal space parasternally. Regular rate and rhythm, normal S1 and S2, rubs or gallops ABDOMEN: Soft, nontender, normoactive bowel sounds. No guarding, no rebound. No masses EXTREMITIES: Normal range of motion, no edema. No clubbing or cyanosis. No cords, erythema, or tenderness NEUROLOGICAL: Cranial nerves II through XII grossly intact. Normal speech, normal gait SKIN: Warm, Dry, normal turgor, no rashes or lesions noted. <Jacky Gross - Last Filed: 03/18/17 19:00> ED Treatment Course - LABORATORY CBC & Chemistry Diagram: 03/18/17 15:50 03/18/17 15:50 <Vu Jefferson - Last Filed: 03/18/17 18:56> - LABORATORY CBC & Chemistry Diagram: 03/18/17 15:50 03/18/17 15:50 <Jacky Gross - Last Filed: 03/18/17 19:00> Medical Decision Making - Medical Decision Making 03/18/17 15:[address] Smallwood @15:33pm. Awaiting call back. Caled Dr. Azeevdo @18:57pm. Awaiting call back. <Jacky Gross - Last Filed: 03/18/17 19:00> *DC/Admit/Observation/Transfer - Discharge Dispostion Admit: Yes - Attestations Physician Attestion: 03/18/17 15:09 I, Dr. Vu Jefferson, attest that this document has been prepared under my direction and personally reviewed by me in its entirety. I further attest, that it accurately reflects all work, treatment, procedures and medical decision -making performed by me. <Vu Jefferson - Last Filed: 03/18/17 18:56> - Attestations Scribe Attestion: 03/18/17 16:22 Documentation prepared by Jacky Gross, acting as medical affairs director for Vu Jefferson MD/DO. <Jacky Gross - Last Filed: 03/18/17 19:00> Diagnosis at time of Disposition: Acute interstitial pneumonitis, COPD (chronic obstructive pulmonary disease) with acute bronchitis - Discharge Dispostion Condition at time of disposition: Improved - Referrals Referrals: Nile Dahl MD [Primary Care Provider] -
[2017-03-18] MEDS ORDERED: SODIUM CHLORIDE 1,000 ML IV STA (15:26)
[2017-03-18] MEDS ORDERED: LEVOFLOXACIN 750 MG IVPB 150 ML IVPB ONE ×2 (15:30→16:19)
[2017-03-18] MEDS ORDERED: methylPREDNISolone NA SUCC 125 MG/2 ML VIAL IVPB ONE (15:30)
[2017-03-18] MEDS ORDERED: ALBUTEROL SO4 0.083% IH SOL 2.5 MG/3 ML VIAL.NEB. NEB ONE ×2 (15:31→16:19)
[2017-03-18] MEDS ORDERED: ALBUTEROL SO4 2.5/IPRATROPIUM 0.5 INH SOL 3 ML VIAL.NEB. NEB ONE ×2 (15:31→16:19)
[2017-03-18] MEDS ORDERED: methylPREDNISolone NA SUCC 125 MG/2 ML VIAL ONE (16:19)
[2017-03-18 16:30] LABS: INR 1.23 (0.82-1.09); PROTHROMBIN TIME (PATIENT) 13.6 SEC (9.98-11.88)
[2017-03-18 16:32] LABS: ACTIVATED PTT 28.8 SECONDS (26.9-34.4)
[2017-03-18 16:40] LABS: ALBUMIN 3.6 g/dl (3.4-5.0); ANION GAP 7 (8-16); BILIRUBIN,TOTAL 0.6 mg/dL (0.2-1.0); CALCIUM 8.8 mg/dL (8.5-10.1); CO2 28 mmol/L (21-32); CREATININE 0.9 mg/dL (0.7-1.3); GLUCOSE,RANDOM 85 mg/dL (74-106); SGOT/AST 17 U/L (15-37); SGPT/ALT 17 U/L (12-78); TOT PROT 6.2 g/dl (6.4-8.2)
[2017-03-18 16:42] LABS: ALK PHOS 59 U/L (45-117); BASOPHIL 0.5 % (0-2.0); CPK 74 IU/L (39-308); EOSINOPHIL 0.7 % (0-4.5); MCH 29.6 pg (25.7-33.7); MEAN CELL VOLUME 89.9 fl (80-96); MEAN PLT VOLUME 7.2 fl (7.5-11.1); NEUTROPHILS 71.4 % (42.8-82.8); PLATELET COUNT 275 K/MM3 (134-434); RDW 15.8 % (11.9-15.9); TROPONIN I < 0.02 ng/ml (0.00-0.05); WHITE BLOOD COUNT 12.3 K/mm3 (4.0-10.0)
[2017-03-18 18:54] LABS: URINE APPEARANCE CLEAR; URINE BILIRUBIN NEGATIVE (NEGATIVE); URINE BLOOD NEGATIVE (NEGATIVE); URINE COLOR YELLOW; URINE GLUCOSE (UA) NEGATIVE (NEGATIVE); URINE KETONE TRACE (NEGATIVE); URINE LEUK ESTERASE TRACE (NEGATIVE); URINE NITRITE NEGATIVE (NEGATIVE); URINE PROTEIN NEGATIVE (NEGATIVE); URINE UROBILINOGEN NEGATIVE mg/dL (0.2-1.0)
[2017-03-18 19:11] LABS: URINE BACTERIA FEW /hpf (NONE SEEN); URINE MUCUS RARE; URINE RBC 3 /hpf (0-3); URINE WBC 4 /hpf (3-5)
[2017-03-18] MEDS ORDERED: ACETAMINOPHEN 325 MG TABLET (FP) PO PRN (19:22)
[2017-03-18] MEDS ORDERED: ONDANSETRON 4 MG/2 ML VIAL IVPB PRN (19:22)
--- NOTE | 2017-03-18 20:08 | PN ---
Progress Note (short form) - Note Progress Note: PULMONARY CONSULTATION DICTATED 03/18/17 IMP COPD EXACERBATION LIKELY URI CHRONIC HYPOXEMIC RESPIRATORY FAILURE HYN HLD PULMONARY NODULE STABLE ANXIETY PLAN IV STEROIDS INHALED BRONCHODILATORS ANTIBIOTICS NASAL O2 SPUTUM C+S DR HEATH Problem List - Problems (1) COPD (chronic obstructive pulmonary disease) with acute bronchitis Code(s): J44.0 - CHRONIC OBSTRUCTIVE PULMON DISEASE W ACUTE LOWER RESP INFCT (2) Anxiety about health Code(s): F41.8 - OTHER SPECIFIED ANXIETY DISORDERS (3) Cough Code(s): R05 - COUGH (4) Hyperlipidemia Code(s): E78.5 - HYPERLIPIDEMIA, UNSPECIFIED (5) Hypertension Code(s): I10 - ESSENTIAL (PRIMARY) HYPERTENSION (6) Lung nodule Code(s): R91.1 - SOLITARY PULMONARY NODULE (7) Shortness of breath Code(s): R06.02 - SHORTNESS OF BREATH
[2017-03-18] MEDS: methylPREDNISolone NA SUCC 40 MG/1 ML VIAL IVPB SCH (21:22)
[2017-03-18] MEDS: ATORVASTATIN CA 40 MG TABLET (FP) PO SCH (21:23)
[2017-03-18] MEDS: DOCUSATE SODIUM 100 MG CAPSULE (FP) PO SCH (21:23)
[2017-03-19] MEDS: ALBUTEROL SO4 0.083% IH SOL 2.5 MG/3 ML VIAL.NEB. NEB SCH ×4 (00:04→16:45)
[2017-03-19] MEDS: methylPREDNISolone NA SUCC 40 MG/1 ML VIAL IVPB SCH ×4 (03:52→21:21)
[2017-03-19 08:04] LABS: BASOPHIL 0.2 % (0-2.0); MCH 30.1 pg (25.7-33.7); MCHC 33.4 g/dl (32.0-35.9); MEAN CELL VOLUME 90.1 fl (80-96); MEAN PLT VOLUME 7.4 fl (7.5-11.1); NEUTROPHILS 84.8 % (42.8-82.8); PLATELET COUNT 240 K/MM3 (134-434); RDW 15.7 % (11.9-15.9); WHITE BLOOD COUNT 8.5 K/mm3 (4.0-10.0)
[2017-03-19 08:49] LABS: GLUCOSE,RANDOM 160 mg/dL (74-106)
[2017-03-19 08:50] LABS: ANION GAP 9 (8-16); CALCIUM 8.7 mg/dL (8.5-10.1); CO2 26 mmol/L (21-32); CREATININE 0.8 mg/dL (0.7-1.3); PHOSPHOROUS 2.4 mg/dL (2.5-4.9)
[2017-03-19] MEDS: ENOXAPARIN NA (PORCINE) 40 MG/0.4 ML DISP.SYRIN SQ SCH (09:55)
[2017-03-19] MEDS: LACTOBACILLUS ACIDOPHILUS 1 EACH TAB (FP) PO SCH (09:55)
[2017-03-19] MEDS: ASPIRIN COATED 81 MG TABLET.EC PO SCH (09:55)
[2017-03-19] MEDS: ACLIDINIUM BROMIDE 400 MCG/INH AERO.POWD IH SCH ×2 (09:55→21:31)
[2017-03-19] MEDS: DOCUSATE SODIUM 100 MG CAPSULE (FP) PO SCH ×2 (09:56→21:21)
[2017-03-19] MEDS: ESCITALOPRAM OXALATE 10 MG TABLET (FP) PO SCH (09:56)
[2017-03-19] MEDS: LEVOFLOXACIN 750 MG IVPB 150 ML IVPB SCH (09:56)
--- NOTE | 2017-03-19 10:27 | EKG ---
Test Reason : Blood Pressure : / mmHG Vent. 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
--- NOTE | 2017-03-19 10:55 | PN ---
Progress Note, Physician History of Present Illness: pulmonary alert,less congested - Current Medication List Current Medications: Active Medications Acetaminophen (Tylenol -) 650 mg PO Q4H PRN PRN Reason: FEVER OR PAIN Aclidinium [place] (Tudorza -) 1 puff IH BID [facility] Last Admin: 03/19/17 09:55 Dose: 1 puff Albuterol Sulfate (Ventolin 0.083% Nebulizer Soln -) 1 amp NEB Q6HPO [facility] Last Admin: 03/19/17 06:44 Dose: 1 amp Aspirin (Ecotrin -) 81 mg PO DAILY [facility] Last Admin: 03/19/17 09:55 Dose: 81 mg Atorvastatin Calcium (Lipitor -) 40 mg PO HS [facility] Last Admin: 03/18/17 21:23 Dose: 40 mg Docusate Sodium (Colace -) 100 mg PO BID [facility] Last Admin: 03/19/17 09:56 Dose: 100 mg Enoxaparin Sodium (Lovenox -) 40 mg SQ DAILY [facility] Last Admin: 03/19/17 09:55 Dose: 40 mg Escitalopram Oxalate (Lexapro -) 10 mg PO DAILY [facility] Last Admin: 03/19/17 09:56 Dose: 10 mg Levofloxacin (Levaquin 750 Mg Premixed Ivpb -) 150 mls @ 100 mls/hr IVPB DAILY [facility] Last Admin: 03/19/17 09:56 Dose: 100 mls/hr Lactobacillus Acidophilus (Bacid -) 1 tab PO DAILY [facility] Last Admin: 03/19/17 09:55 Dose: 1 tab Methylprednisolone Sodium Succinate (Solu-Medrol -) 40 mg IVPB Q6H-IV [facility] Last Admin: 03/19/17 09:55 Dose: 40 mg Ondansetron HCl (Zofran Injection) 4 mg IVPB Q6H PRN PRN Reason: NAUSEA - Objective Vital Signs: Vital Signs Temperature 98.4 F 03/19/17 06:00 Pulse Rate 69 03/19/17 06:00 Respiratory Rate 22 03/19/17 06:00 Blood Pressure 130/53 03/19/17 06:00 O2 Sat by Pulse Oximetry (%) 96 03/18/17 22:06 Constitutional: Yes: Well Nourished, Calm Eyes: Yes: WNL HENT: Yes: WNL Neck: Yes: WNL Cardiovascular: Yes: Regular Rate and Rhythm, S1, S2 Respiratory: Yes: Diminished, Rhonchi (few rhonchi) Gastrointestinal: Yes: Normal Bowel Sounds, Soft Extremities: Yes: WNL Edema: No Labs: CBC, BMP 03/19/17 07:00 03/19/17 07:00 INR, PTT INR 1.23 (0.82-1.09) H 03/18/17 15:50 - ....Imaging Chest X-ray: Report Reviewed, Image Reviewed Problem List - Problems (1) COPD (chronic obstructive pulmonary disease) with acute bronchitis Code(s): J44.0 - CHRONIC OBSTRUCTIVE PULMON DISEASE W ACUTE LOWER RESP INFCT (2) Anxiety about health Code(s): F41.8 - OTHER SPECIFIED ANXIETY DISORDERS (3) Cough Code(s): R05 - COUGH (4) Hyperlipidemia Code(s): E78.5 - HYPERLIPIDEMIA, UNSPECIFIED (5) Hypertension Code(s): I10 - ESSENTIAL (PRIMARY) HYPERTENSION (6) Lung nodule Code(s): R91.1 - SOLITARY PULMONARY NODULE (7) Shortness of breath Code(s): R06.02 - SHORTNESS OF BREATH Assessment/Plan IMP COPD EXACERBATION IMPROVING LIKELY URI CHRONIC HYPOXEMIC RESPIRATORY FAILURE HYN HLD PULMONARY NODULE STABLE ANXIETY PLAN IV STEROIDS SAME DOSE INHALED BRONCHODILATORS ANTIBIOTICS NASAL O2 DR HEATH
--- NOTE | 2017-03-19 14:33 | HP ---
Admitting History and Physical - Primary Care Physician PCP: Nile Dahl - Admission Chief Complaint: cough and SOB History Source: Patient Limitations to Obtaining History: No Limitations - Past Medical History Cardiovascular: Yes: HTN, Hyperlipdemia Pulmonary: Yes: COPD, Pneumonia Gastrointestinal: Yes: Constipation Renal/: Yes: BPH Psych: Yes: Anxiety Musculoskeletal: Yes: Osteoarthritis ENT: Yes: Sinusitis - Smoking History Smoking history: Former smoker Have you smoked in the past 12 months: No Aproximately how many cigarettes per day: 0 If you are a former smoker, when did you quit?: 1992 - Alcohol/Substance Use Hx Alcohol Use: No History of Substance Use: reports: None - Social History Usual Living Arrangement: Yes: With Spouse ADL: Independent Occupation: retired History of Recent Travel: No Home Medications - Allergies Allergies/Adverse Reactions: Allergies Allergy/AdvReac Type Severity Reaction Status Date / Time No Known Drug Allergies Allergy Verified 03/18/17 13:16 shrimp Allergy Unknown lip Uncoded 03/18/17 13:16 swelling - Home Medications Home Medications: Ambulatory Orders Tiotropium [place] [Spiriva] 18 mcg IH DAILY 06/23/11 Budesonide/Formeterol Fumarate [SYMBICORT 80/4.5mcg -] 1 inh PO DAILY 02/15/15 Aspirin Coated [Ecotrin -] 81 mg PO DAILY tablet.ec 11/20/15 Atorvastatin Ca [Lipitor] 40 mg PO HS tablet 11/20/15 Escitalopram Oxalate [Lexapro -] 10 mg PO DAILY 02/10/17 Acetaminophen [Tylenol .Regular Strength -] 650 mg PO Q4H PRN #0 tablet Albuterol 0.083% Nebulizer Joy [Ventolin 0.083% Nebulizer Soln -] 1 amp NEB Q4H PRN #0 amp 02/13/17 Family Disease History - Family Disease History Family Disease History: Respiratory: Father, Other: Mother (sinus issues) Review of Systems - Review of Systems Constitutional: reports: Weakness HENT: reports: Nasal Congestion Cardiovascular: denies: Chest Pain Respiratory: reports: Cough, SOB on Exertion Gastrointestinal: denies: Nausea Neurological: reports: Weakness Endocrine: reports: Intolerance to Cold Psychiatric: reports: Anxiety Physical Examination Vital Signs: Vital Signs Temperature 98.1 F 03/19/17 13:33 Pulse Rate 74 03/19/17 13:33 Respiratory Rate 22 03/19/17 13:33 Blood Pressure 107/54 03/19/17 13:33 O2 Sat by Pulse Oximetry (%) 98 03/19/17 11:50 Constitutional: Yes: Calm, Pallor Eyes: Yes: Conjunctiva Clear Cardiovascular: Yes: Regular Rate and Rhythm Respiratory: Yes: Diminished, On Nasal O2. No: Rales, Wheezes Gastrointestinal: Yes: Soft Edema: No Neurological: Yes: Alert, Oriented Labs: CBC, BMP 03/19/17 07:00 03/19/17 07:00 Imaging - Results EKG: Report Reviewed Problem List - Problems (1) COPD (chronic obstructive pulmonary disease) with acute bronchitis Assessment/Plan: Patient on aerosol Rx and IV antibiotics. Seen by Pulmonary MD Code(s): J44.0 - CHRONIC OBSTRUCTIVE PULMON DISEASE W ACUTE LOWER RESP INFCT (2) Cough Assessment/Plan: Green sputum but no chills Code(s): R05 - COUGH (3) Hyperlipidemia Assessment/Plan: On Rx. Code(s): E78.5 - HYPERLIPIDEMIA, UNSPECIFIED (4) Hypertension Assessment/Plan: Stable now and on no Rx. Code(s): I10 - ESSENTIAL (PRIMARY) HYPERTENSION (5) Lung nodule seen on imaging study Assessment/Plan: Followed by Dr. Smallwood; no recent change on CT scan. Code(s): R91.1 - SOLITARY PULMONARY NODULE (6) Anxiety about health Assessment/Plan: On SSRI but still has anxiety. Code(s): F41.8 - OTHER SPECIFIED ANXIETY DISORDERS
[2017-03-19] MEDS: MAG HYDROX/AL HYDROX/SIMETH 30 ML UNIT-DOSE CUP PO PRN (18:24)
[2017-03-19] MEDS: ATORVASTATIN CA 40 MG TABLET (FP) PO SCH (21:21)
[2017-03-19] MEDS ORDERED: PT OWN MED DRAWER 7, Y5N ONE ×2 (21:30→21:33)
[2017-03-20] MEDS: ALBUTEROL SO4 0.083% IH SOL 2.5 MG/3 ML VIAL.NEB. NEB SCH ×4 (00:05→18:05)
[2017-03-20] MEDS: methylPREDNISolone NA SUCC 40 MG/1 ML VIAL IVPB SCH ×3 (03:00→17:23)
--- NOTE | 2017-03-20 08:57 | PN ---
Progress Note (short form) - Note Progress Note: Patient sitting at bedside. Slight cough but slept pretty well. No chest pain Constipated Vital Signs Temp 98.2 F 03/20/17 06:00 Pulse 73 03/20/17 06:00 Resp 18 03/20/17 06:00 BP 123/50 03/20/17 06:00 Pulse Ox 96 03/19/17 21:00 Intake & Output 03/19/17 03/19/17 03/20/17 11:59 23:59 11:59 Intake Total 0 450 Balance 0 450 Intake: IVPB 0 0 Oral 450 Other: Voiding Method Toilet Toilet Bowel Movement No # Bowel Movements 0 Alert Chest: Markedly decreased bowel sounds Cor Reg ExT: No edema IMP: COPD with Acute Exacerbation Hyperlipidemia Anxiety about Illness Acute constipation Plan: Taper IV steroids to TID F/U Lab Pulmonary Miralax Post exercise O2 Sat Problem List - Problems (1) COPD (chronic obstructive pulmonary disease) with acute bronchitis Code(s): J44.0 - CHRONIC OBSTRUCTIVE PULMON DISEASE W ACUTE LOWER RESP INFCT (2) Cough Code(s): R05 - COUGH (3) Hyperlipidemia Code(s): E78.5 - HYPERLIPIDEMIA, UNSPECIFIED (4) Hypertension Code(s): I10 - ESSENTIAL (PRIMARY) HYPERTENSION (5) Lung nodule seen on imaging study Code(s): R91.1 - SOLITARY PULMONARY NODULE (6) Anxiety about health Code(s): F41.8 - OTHER SPECIFIED ANXIETY DISORDERS
[2017-03-20] MEDS ORDERED: PT OWN MED DRAWER 7, Y5N ONE ×2 (09:00→21:09)
[2017-03-20] MEDS: ENOXAPARIN NA (PORCINE) 40 MG/0.4 ML DISP.SYRIN SQ SCH (09:38)
[2017-03-20] MEDS: ACLIDINIUM BROMIDE 400 MCG/INH AERO.POWD IH SCH ×2 (09:38→21:12)
[2017-03-20] MEDS: LEVOFLOXACIN 750 MG IVPB 150 ML IVPB SCH (09:41)
[2017-03-20] MEDS: DOCUSATE SODIUM 100 MG CAPSULE (FP) PO SCH ×2 (09:42→21:12)
[2017-03-20] MEDS: ASPIRIN COATED 81 MG TABLET.EC PO SCH (09:42)
[2017-03-20] MEDS: ESCITALOPRAM OXALATE 10 MG TABLET (FP) PO SCH (09:42)
[2017-03-20] MEDS: LACTOBACILLUS ACIDOPHILUS 1 EACH TAB (FP) PO SCH (09:42)
[2017-03-20] MEDS: POLYETHYLENE GLYCOL 3350 119 GM BTL PO SCH (09:44)
--- NOTE | 2017-03-20 10:55 | CONS ---
DATE OF CONSULTATION: 03/18/2017 REFERRING PHYSICIAN: Nile Dahl MD The patient is an 86-year-old white male known to me from previous hospitalization as well as office followup with a past history of advanced COPD on home O2, history of pneumonia, history of lung nodule unchanged in over years, history of hyperlipidemia, presented to [facility] with complaint of 4-day history of increasing shortness of breath, cough productive of yellow sputum. The patient denied any fevers, chills. Denied any nausea, vomiting, diaphoresis. the patient was doing relatively well until 4 days prior to admission when he started developing a cough. He said the cough started increasing in severity, associated with green and yellow sputum. He denied any hemoptysis. He also complained of increasing shortness of breath and intermittent chills secondary to the coughing. extremity edema. He presented to the emergency room with the above. In the ER he was treated with improvement. Otherwise, the patient was recently hospitalized in January secondary to COPD exacerbation. Never been intubated but secondary to COPD as well as pneumonia. There is no history of , no history of DVT or PE in the past. PAST MEDICAL HISTORY: COPD, hyperlipidemia, nodule, and . REVIEW OF SYSTEMS: Positive for sputum, positive shortness of breath, chest pain. No palpitations, no abdominal pain. lower extremity edema. MEDICATIONS: Medications prior to admission include Spiriva, Symbicort, aspirin, Lipitor, Lexapro, and albuterol. PHYSICAL EXAMINATION: General: The patient is a well-developed, well-nourished male, awake, alert, mildly dyspneic, in no acute respiratory distress. Vital Signs: He is currently afebrile. Blood pressure is , respiratory rate 20, mildly dyspneic. O2 saturation is 97% on 2 L. HEENT: Head is normocephalic, atraumatic. Neck: Supple. Respiratory: He has bilateral wheezes. Abdomen: Soft. Bowel sounds are positive. Extremities: No cyanosis or edema. LABORATORY: WBC is 12.3, hemoglobin 13.8, hematocrit 42, platelet count of 15.8. INR is 1.23. BUN 23, creatinine 0.9. Chest x-ray: No acute infiltrates and no effusion. IMPRESSION: 1. Chronic obstructive pulmonary disease with acute exacerbation . 2. History of hyperlipidemia. 3. Hypertension. 4. Anxiety. 5. History of lung nodules, stable. PLAN: IV steroids, inhaled bronchodilators, supplemental O2, antibiotics, sputum for culture and sensitivity. RAJESH HEATH M.D. [id number]
--- NOTE | 2017-03-20 12:15 | PN ---
Progress Note, Physician History of Present Illness: pulmonary alert,less congested,mildly dyspneic with exertion - Current Medication List Current Medications: Active Medications Acetaminophen (Tylenol -) 650 mg PO Q4H PRN PRN Reason: FEVER OR PAIN Aclidinium [place] (Tudorza -) 1 puff IH BID [facility] Last Admin: 03/20/17 09:38 Dose: 1 puff Al Hydroxide/Mg Hydroxide (Mylanta Oral Suspension -) 30 ml PO Q6H PRN PRN Reason: DYSPEPSIA Last Admin: 03/19/17 18:24 Dose: 30 ml Albuterol Sulfate (Ventolin 0.083% Nebulizer Soln -) 1 amp NEB Q6HPO [facility] Last Admin: 03/20/17 07:48 Dose: 1 amp Aspirin (Ecotrin -) 81 mg PO DAILY [facility] Last Admin: 03/20/17 09:42 Dose: 81 mg Atorvastatin Calcium (Lipitor -) 40 mg PO HS [facility] Last Admin: 03/19/17 21:21 Dose: 40 mg Docusate Sodium (Colace -) 100 mg PO BID [facility] Last Admin: 03/20/17 09:42 Dose: 100 mg Enoxaparin Sodium (Lovenox -) 40 mg SQ DAILY [facility] Last Admin: 03/20/17 09:38 Dose: 40 mg Escitalopram Oxalate (Lexapro -) 10 mg PO DAILY [facility] Last Admin: 03/20/17 09:42 Dose: 10 mg Levofloxacin (Levaquin 750 Mg Premixed Ivpb -) 150 mls @ 100 mls/hr IVPB DAILY [facility] Last Admin: 03/20/17 09:41 Dose: 100 mls/hr Lactobacillus Acidophilus (Bacid -) 1 tab PO DAILY [facility] Last Admin: 03/20/17 09:42 Dose: 1 tab Methylprednisolone Sodium Succinate (Solu-Medrol -) 40 mg IVPB Q8H-IV [facility] Last Admin: 03/20/17 10:26 Dose: 40 mg Ondansetron HCl (Zofran Injection) 4 mg IVPB Q6H PRN PRN Reason: NAUSEA Polyethylene Glycol (Miralax (For Daily Use) -) 17 gm PO DAILY [facility] Last Admin: 03/20/17 09:44 Dose: 17 gm - Objective Vital Signs: Vital Signs Temperature 98.2 F 03/20/17 06:00 Pulse Rate 73 03/20/17 06:00 Respiratory Rate 18 03/20/17 06:00 Blood Pressure 123/50 03/20/17 06:00 O2 Sat by Pulse Oximetry (%) 96 03/19/17 21:00 Constitutional: Yes: Well Nourished, Calm Eyes: Yes: WNL HENT: Yes: WNL Neck: Yes: WNL Cardiovascular: Yes: Regular Rate and Rhythm, S1, S2 Respiratory: Yes: Wheezes (few scattered [place] wheezes) Gastrointestinal: Yes: Normal Bowel Sounds, Soft Extremities: Yes: WNL Edema: No Labs: Problem List - Problems (1) COPD (chronic obstructive pulmonary disease) with acute bronchitis Code(s): J44.0 - CHRONIC OBSTRUCTIVE PULMON DISEASE W ACUTE LOWER RESP INFCT (2) Anxiety about health Code(s): F41.8 - OTHER SPECIFIED ANXIETY DISORDERS (3) Cough Code(s): R05 - COUGH (4) Hyperlipidemia Code(s): E78.5 - HYPERLIPIDEMIA, UNSPECIFIED (5) Hypertension Code(s): I10 - ESSENTIAL (PRIMARY) HYPERTENSION (6) Lung nodule Code(s): R91.1 - SOLITARY PULMONARY NODULE (7) Shortness of breath Code(s): R06.02 - SHORTNESS OF BREATH Assessment/Plan IMP COPD EXACERBATION IMPROVING LIKELY URI CHRONIC HYPOXEMIC RESPIRATORY FAILURE HYN HLD PULMONARY NODULE STABLE ANXIETY PLAN IV STEROIDS REDUCE TO Q12H INHALED BRONCHODILATORS ANTIBIOTICS NASAL O2 DR HEATH
[2017-03-20] MEDS: ATORVASTATIN CA 40 MG TABLET (FP) PO SCH (21:12)
[2017-03-21] MEDS: methylPREDNISolone NA SUCC 40 MG/1 ML VIAL IVPB SCH ×3 (01:15→18:57)
[2017-03-21] MEDS: ALBUTEROL SO4 0.083% IH SOL 2.5 MG/3 ML VIAL.NEB. NEB SCH ×5 (07:51→23:11)
[2017-03-21 08:03] LABS: ANION GAP 9 (8-16); CALCIUM 8.8 mg/dL (8.5-10.1); CO2 27 mmol/L (21-32); GLUCOSE,RANDOM 123 mg/dL (74-106)
[2017-03-21] MEDS: MAG HYDROX/AL HYDROX/SIMETH 30 ML UNIT-DOSE CUP PO PRN (08:27)
--- NOTE | 2017-03-21 08:58 | PN ---
Progress Note (short form) - Note Progress Note: Patient seen and examined. patient slept fairly well last night. Occasional cough after getting aerosol treatment. Trying to ambulate in the mata. Had previously been on O2 at home but stopped. I ordered post exercise O2 sat with oxygen off for 30 min. No history of recent chest pain. Tolerating diet well. Now will be on IV Medrol 20 mg twice a day; may switch to oral medicine Saturday. On exam: Vital Signs Temp 98.2 F 03/21/17 09:00 Pulse 63 03/21/17 09:00 Resp 20 03/21/17 09:00 BP 112/66 03/21/17 09:00 Pulse Ox 95 03/21/17 09:00 Intake & Output 03/20/17 03/21/17 03/21/17 23:59 11:59 23:59 Intake Total 450 0 300 Balance 450 0 300 Intake: IVPB 50 0 Oral 400 300 Other: Voiding Method Toilet Toilet Toilet # Unmeasured Voids Void 2 1 Bowel Movement No patient alert Chest decreased breath sounds. Rare rhonchi at bases. Heart regular. Extremities trace pedal edema. Abnormal Lab Results 03/21/17 06:40 BUN 34 H D Random Glucose 123 H D impression: COPD with acute exacerbation. Anxiety about illness. Hyperlipidemia. . Plan: Decrease Solu-Medrol to 20 mg every 12 hours Pre-and post O2 sat if the walking and ambulating and fall Followup lab Followup respiratory physician. Possible oral medication and home Saturday Problem List - Problems (1) COPD (chronic obstructive pulmonary disease) with acute bronchitis Code(s): J44.0 - CHRONIC OBSTRUCTIVE PULMON DISEASE W ACUTE LOWER RESP INFCT (2) Cough Code(s): R05 - COUGH (3) Hyperlipidemia Code(s): E78.5 - HYPERLIPIDEMIA, UNSPECIFIED (4) Hypertension Code(s): I10 - ESSENTIAL (PRIMARY) HYPERTENSION (5) Lung nodule seen on imaging study Code(s): R91.1 - SOLITARY PULMONARY NODULE (6) Anxiety about health Code(s): F41.8 - OTHER SPECIFIED ANXIETY DISORDERS
[2017-03-21] MEDS ORDERED: PT OWN MED DRAWER 7, Y5N ONE ×2 (09:53→21:21)
[2017-03-21] MEDS: ESCITALOPRAM OXALATE 10 MG TABLET (FP) PO SCH (09:59)
[2017-03-21] MEDS: DOCUSATE SODIUM 100 MG CAPSULE (FP) PO SCH ×2 (10:00→21:24)
[2017-03-21] MEDS: LACTOBACILLUS ACIDOPHILUS 1 EACH TAB (FP) PO SCH (10:00)
[2017-03-21] MEDS: ENOXAPARIN NA (PORCINE) 40 MG/0.4 ML DISP.SYRIN SQ SCH (10:00)
[2017-03-21] MEDS: ACLIDINIUM BROMIDE 400 MCG/INH AERO.POWD IH SCH ×2 (10:00→21:25)
[2017-03-21] MEDS: ASPIRIN COATED 81 MG TABLET.EC PO SCH (10:00)
[2017-03-21] MEDS: LEVOFLOXACIN 750 MG IVPB 150 ML IVPB SCH (10:01)
[2017-03-21] MEDS: POLYETHYLENE GLYCOL 3350 119 GM BTL PO SCH (10:02)
--- NOTE | 2017-03-21 10:13 | PN ---
Progress Note (short form) - Note Progress Note: Reports breathing is a little better today. No CP. (+) cough with thick, very scant sputum. Intake & Output 03/18/17 03/19/17 03/20/17 03/21/17 23:59 23:59 23:59 23:59 Intake Total 1200 450 450 0 Balance 1200 450 450 0 Weight 162 lb 11.2 oz Last Vital Signs Temp Pulse Resp BP Pulse Ox 98.0 F 61 20 119/51 96 03/21/17 06:00 03/21/17 06:00 03/21/17 06:00 03/21/17 06:00 03/20/17 21:00 Active Medications Acetaminophen (Tylenol -) 650 mg PO Q4H PRN PRN Reason: FEVER OR PAIN Aclidinium [place] (Tudorza -) 1 puff IH BID [facility] Last Admin: 03/21/17 10:00 Dose: 1 puff Al Hydroxide/Mg Hydroxide (Mylanta Oral Suspension -) 30 ml PO Q6H PRN PRN Reason: DYSPEPSIA Last Admin: 03/21/17 08:27 Dose: 30 ml Albuterol Sulfate (Ventolin 0.083% Nebulizer Soln -) 1 amp NEB Q6HPO [facility] Last Admin: 03/21/17 07:51 Dose: 1 amp Aspirin (Ecotrin -) 81 mg PO DAILY [facility] Last Admin: 03/21/17 10:00 Dose: 81 mg Atorvastatin Calcium (Lipitor -) 40 mg PO HS [facility] Last Admin: 03/20/17 21:12 Dose: 40 mg Docusate Sodium (Colace -) 100 mg PO BID [facility] Last Admin: 03/21/17 10:00 Dose: 100 mg Enoxaparin Sodium (Lovenox -) 40 mg SQ DAILY [facility] Last Admin: 03/21/17 10:00 Dose: 40 mg Escitalopram Oxalate (Lexapro -) 10 mg PO DAILY [facility] Last Admin: 03/21/17 09:59 Dose: 10 mg Levofloxacin (Levaquin 750 Mg Premixed Ivpb -) 150 mls @ 100 mls/hr IVPB DAILY [facility] Last Admin: 03/21/17 10:01 Dose: 100 mls/hr Lactobacillus Acidophilus (Bacid -) 1 tab PO DAILY [facility] Last Admin: 03/21/17 10:00 Dose: 1 tab Methylprednisolone Sodium Succinate (Solu-Medrol -) 40 mg IVPB Q8H-IV [facility] Last Admin: 03/21/17 10:01 Dose: 40 mg Ondansetron HCl (Zofran Injection) 4 mg IVPB Q6H PRN PRN Reason: NAUSEA Polyethylene Glycol (Miralax (For Daily Use) -) 17 gm PO DAILY [facility] Last Admin: 03/21/17 10:02 Dose: 17 gm Constitutional: Yes: Mildly tachypneic at rest Eyes: Yes: WNL HENT: Yes: WNL Neck: Yes: WNL Cardiovascular: Yes: Regular Rate and Rhythm, S1, S2 Respiratory: Yes: Scattered rhonchi and Expiratory Wheezes Gastrointestinal: Yes: Normal Bowel Sounds, Soft Extremities: Yes: WNL Edema: No Labs: Problem List - Problems (1) COPD (chronic obstructive pulmonary disease) with acute bronchitis Code(s): J44.0 - CHRONIC OBSTRUCTIVE PULMON DISEASE W ACUTE LOWER RESP INFCT (2) Anxiety about health Code(s): F41.8 - OTHER SPECIFIED ANXIETY DISORDERS (3) Cough Code(s): R05 - COUGH (4) Hyperlipidemia Code(s): E78.5 - HYPERLIPIDEMIA, UNSPECIFIED (5) Hypertension Code(s): I10 - ESSENTIAL (PRIMARY) HYPERTENSION (6) Lung nodule Code(s): R91.1 - SOLITARY PULMONARY NODULE (7) Shortness of breath Code(s): R06.02 - SHORTNESS OF BREATH Assessment/Plan IMP COPD EXACERBATION IMPROVING LIKELY URI CHRONIC HYPOXEMIC RESPIRATORY FAILURE HYN HLD PULMONARY NODULE STABLE ANXIETY PLAN IV STEROIDS REDUCE TO Q12H INHALED BRONCHODILATORS ANTIBIOTICS NASAL O2 NEED TO ASSESS FOR HOME O2 PRIOR TO D/C CONTINUE LAMA DR RUDOLPH
[2017-03-21] MEDS: ATORVASTATIN CA 40 MG TABLET (FP) PO SCH (21:25)
[2017-03-22] MEDS ORDERED: methylPREDNISolone NA SUCC 40 MG/1 ML VIAL IVPB SCH (06:00)
[2017-03-22] MEDS: ALBUTEROL SO4 0.083% IH SOL 2.5 MG/3 ML VIAL.NEB. NEB SCH ×3 (06:09→18:32)
[2017-03-22] MEDS ORDERED: PT OWN MED DRAWER 7, Y5N ONE ×3 (09:03→21:15)
[2017-03-22] MEDS: ENOXAPARIN NA (PORCINE) 40 MG/0.4 ML DISP.SYRIN SQ SCH (09:14)
[2017-03-22] MEDS: ESCITALOPRAM OXALATE 10 MG TABLET (FP) PO SCH (09:14)
[2017-03-22] MEDS: ACLIDINIUM BROMIDE 400 MCG/INH AERO.POWD IH SCH ×2 (09:14→21:17)
[2017-03-22] MEDS: DOCUSATE SODIUM 100 MG CAPSULE (FP) PO SCH ×2 (09:14→21:17)
[2017-03-22] MEDS: ASPIRIN COATED 81 MG TABLET.EC PO SCH (09:14)
[2017-03-22] MEDS: LACTOBACILLUS ACIDOPHILUS 1 EACH TAB (FP) PO SCH (09:14)
[2017-03-22] MEDS: LEVOFLOXACIN 750 MG IVPB 150 ML IVPB SCH (09:15)
[2017-03-22] MEDS: POLYETHYLENE GLYCOL 3350 119 GM BTL PO SCH (09:15)
[2017-03-22 09:57] LABS: ANION GAP 8 (8-16); CALCIUM 8.8 mg/dL (8.5-10.1); CO2 31 mmol/L (21-32); CREATININE 0.8 mg/dL (0.7-1.3); GLUCOSE,RANDOM 103 mg/dL (74-106)
--- NOTE | 2017-03-22 10:15 | PN ---
Progress Note (short form) - Note Progress Note: Pending visit from Pulmonary MD will D/C today on oral Rx. Patient felt better this morningwith occasional cough. If the using aerosol treatment O2Sat 85 post exercise; To have O2 at home. will begin oral prednisone in preparation for possible discharge. patient told to ambulate after breakfast and see how his breathing is. On exam: Vital Signs Temp 97.4 F L 03/22/17 15:04 Pulse 70 03/22/17 15:04 Resp 20 03/22/17 15:04 BP 135/78 03/22/17 15:04 Pulse Ox 90 L 03/22/17 14:24 Intake & Output 03/21/17 03/22/17 03/22/17 23:59 11:59 23:59 Intake Total 300 0 550 Output Total 700 Balance 300 0 -150 Intake: IVPB 0 0 Oral 300 550 Output: Urine 700 Void 700 Other: Voiding Method Toilet Toilet # Unmeasured Voids Void 1 Patient is alert Chest decreased breath sounds. I do not hear any wheezes. Heart regular extremities: trace pedal edema abdomen: Soft nontender; patient had BM Abnormal Lab Results 03/22/17 08:30 BUN 34 H impression: COPD with acute exacerbation. Hyperlipidemia. Anxiety about illness. Pulmonary nodule followed by pulmonology hyperlipidemia. Plan: Continue aerosol treatment. Switch IV medication to by mouth Await decision on discharge with pulmonary physician. O2 at home is been arranged. If he does not go home today repeat pre-and post O2 sat has to be performed again Problem List - Problems (1) COPD (chronic obstructive pulmonary disease) with acute bronchitis Code(s): J44.0 - CHRONIC OBSTRUCTIVE PULMON DISEASE W ACUTE LOWER RESP INFCT (2) Cough Code(s): R05 - COUGH (3) Hyperlipidemia Code(s): E78.5 - HYPERLIPIDEMIA, UNSPECIFIED (4) Hypertension Code(s): I10 - ESSENTIAL (PRIMARY) HYPERTENSION (5) Lung nodule seen on imaging study Code(s): R91.1 - SOLITARY PULMONARY NODULE (6) Anxiety about health Code(s): F41.8 - OTHER SPECIFIED ANXIETY DISORDERS
--- NOTE | 2017-03-22 13:08 | PN ---
Progress Note, Physician History of Present Illness: pulmonary alert,feeling better,less dyspneic - Current Medication List Current Medications: Active Medications Acetaminophen (Tylenol -) 650 mg PO Q4H PRN PRN Reason: FEVER OR PAIN Aclidinium [place] (Tudorza -) 1 puff IH BID [facility] Last Admin: 03/22/17 09:14 Dose: 1 puff Al Hydroxide/Mg Hydroxide (Mylanta Oral Suspension -) 30 ml PO Q6H PRN PRN Reason: DYSPEPSIA Last Admin: 03/21/17 08:27 Dose: 30 ml Albuterol Sulfate (Ventolin 0.083% Nebulizer Soln -) 1 amp NEB Q6HPO [facility] Last Admin: 03/22/17 12:55 Dose: 1 amp Aspirin (Ecotrin -) 81 mg PO DAILY [facility] Last Admin: 03/22/17 09:14 Dose: 81 mg Atorvastatin Calcium (Lipitor -) 40 mg PO HS [facility] Last Admin: 03/21/17 21:25 Dose: 40 mg Docusate Sodium (Colace -) 100 mg PO BID [facility] Last Admin: 03/22/17 09:14 Dose: 100 mg Enoxaparin Sodium (Lovenox -) 40 mg SQ DAILY [facility] Last Admin: 03/22/17 09:14 Dose: 40 mg Escitalopram Oxalate (Lexapro -) 10 mg PO DAILY [facility] Last Admin: 03/22/17 09:14 Dose: 10 mg Levofloxacin (Levaquin 750 Mg Premixed Ivpb -) 150 mls @ 100 mls/hr IVPB DAILY [facility] Last Admin: 03/22/17 09:15 Dose: 100 mls/hr Lactobacillus Acidophilus (Bacid -) 1 tab PO DAILY [facility] Last Admin: 03/22/17 09:14 Dose: 1 tab Ondansetron HCl (Zofran Injection) 4 mg IVPB Q6H PRN PRN Reason: NAUSEA Pantoprazole Sodium (Protonix -) 40 mg PO DAILY [facility] Polyethylene Glycol (Miralax (For Daily Use) -) 17 gm PO DAILY [facility] Last Admin: 03/22/17 09:15 Dose: 17 gm Prednisone (Deltasone -) 50 mg PO DAILY [facility] - Objective Vital Signs: Vital Signs Temperature 98.7 F 03/22/17 08:43 Pulse Rate 72 03/22/17 09:00 Respiratory Rate 20 03/22/17 08:43 Blood Pressure 124/81 03/22/17 08:43 O2 Sat by Pulse Oximetry (%) 99 03/22/17 09:00 Constitutional: Yes: Well Nourished, Calm Eyes: Yes: WNL HENT: Yes: WNL Neck: Yes: WNL Cardiovascular: Yes: Regular Rate and Rhythm, S1, S2 Respiratory: Yes: Diminished Gastrointestinal: Yes: Normal Bowel Sounds, Soft Extremities: Yes: WNL Edema: No Labs: CBC, BMP 03/19/17 07:00 03/22/17 08:30 INR, PTT INR 1.23 (0.82-1.09) H 03/18/17 15:50 Problem List - Problems (1) COPD (chronic obstructive pulmonary disease) with acute bronchitis Code(s): J44.0 - CHRONIC OBSTRUCTIVE PULMON DISEASE W ACUTE LOWER RESP INFCT (2) Anxiety about health Code(s): F41.8 - OTHER SPECIFIED ANXIETY DISORDERS (3) Cough Code(s): R05 - COUGH (4) Hyperlipidemia Code(s): E78.5 - HYPERLIPIDEMIA, UNSPECIFIED (5) Hypertension Code(s): I10 - ESSENTIAL (PRIMARY) HYPERTENSION (6) Lung nodule Code(s): R91.1 - SOLITARY PULMONARY NODULE (7) Shortness of breath Code(s): R06.02 - SHORTNESS OF BREATH Assessment/Plan IMP COPD EXACERBATION IMPROVED LIKELY URI CHRONIC HYPOXEMIC RESPIRATORY FAILURE HYN HLD PULMONARY NODULE STABLE ANXIETY PLAN PREDNISONE INHALED BRONCHODILATORS ANTIBIOTICS NASAL O2 CHECK O2 SAT POST EXERCISE DR HEATH
[2017-03-22] MEDS: PANTOPRAZOLE 40 MG TABLET (FP) PO SCH (17:01)
[2017-03-22] MEDS: predniSONE 20 MG TABLET (UD) PO SCH (17:01)
[2017-03-22] MEDS: ATORVASTATIN CA 40 MG TABLET (FP) PO SCH (21:17)
[2017-03-23] MEDS: ALBUTEROL SO4 0.083% IH SOL 2.5 MG/3 ML VIAL.NEB. NEB SCH ×4 (06:20→17:15)
[2017-03-23] MEDS ORDERED: PT OWN MED DRAWER 7, Y5N ONE ×3 (09:19→21:12)
[2017-03-23] MEDS: ASPIRIN COATED 81 MG TABLET.EC PO SCH (09:23)
[2017-03-23] MEDS: ESCITALOPRAM OXALATE 10 MG TABLET (FP) PO SCH (09:23)
[2017-03-23] MEDS: predniSONE 20 MG TABLET (UD) PO SCH (09:23)
[2017-03-23] MEDS: DOCUSATE SODIUM 100 MG CAPSULE (FP) PO SCH ×2 (09:23→21:20)
[2017-03-23] MEDS: LEVOFLOXACIN 750 MG IVPB 150 ML IVPB SCH (09:24)
[2017-03-23] MEDS: ENOXAPARIN NA (PORCINE) 40 MG/0.4 ML DISP.SYRIN SQ SCH (09:24)
[2017-03-23] MEDS: POLYETHYLENE GLYCOL 3350 119 GM BTL PO SCH (09:24)
[2017-03-23] MEDS: LACTOBACILLUS ACIDOPHILUS 1 EACH TAB (FP) PO SCH (09:24)
[2017-03-23] MEDS: PANTOPRAZOLE 40 MG TABLET (FP) PO SCH (09:25)
[2017-03-23] MEDS: ACLIDINIUM BROMIDE 400 MCG/INH AERO.POWD IH SCH ×2 (09:25→21:20)
--- NOTE | 2017-03-23 13:25 | PN ---
Progress Note (short form) - Note Progress Note: PULMONARY APPEARS TACHYPNEIC NEEDS HOME O2(ORDERED) VSS ANICTERIC DIMINISHED B/L BREATH SOUNDS S1S2 BS+ NO EDEMA CT/MEDS/LABS/NOTES REVIEWED IMP COPD EXACERBATION/PULMONARY HTN CHRONIC HYPOXEMIC RESPIRATORY FAILURE HTN HLD PULMONARY NODULE STABLE ANXIETY PLAN CHANGE BACK TO IV MEDROL INHALED BRONCHODILATORS ANTIBIOTICS/DALIRESP NASAL O2 WILL HAVE HOME O2 Abhijeet ERWIN MD
--- NOTE | 2017-03-23 16:28 | PN ---
Progress Note, Physician History of Present Illness: feeling good - Current Medication List Current Medications: Active Medications Acetaminophen (Tylenol -) 650 mg PO Q4H PRN PRN Reason: FEVER OR PAIN Aclidinium [place] (Tudorza -) 1 puff IH BID [facility] Last Admin: 03/23/17 09:25 Dose: 1 puff Al Hydroxide/Mg Hydroxide (Mylanta Oral Suspension -) 30 ml PO Q6H PRN PRN Reason: DYSPEPSIA Last Admin: 03/21/17 08:27 Dose: 30 ml Albuterol Sulfate (Ventolin 0.083% Nebulizer Soln -) 1 amp NEB Q6HPO [facility] Last Admin: 03/23/17 12:27 Dose: 1 amp Aspirin (Ecotrin -) 81 mg PO DAILY [facility] Last Admin: 03/23/17 09:23 Dose: 81 mg Atorvastatin Calcium (Lipitor -) 40 mg PO HS [facility] Last Admin: 03/22/17 21:17 Dose: 40 mg Docusate Sodium (Colace -) 100 mg PO BID [facility] Last Admin: 03/23/17 09:23 Dose: 100 mg Enoxaparin Sodium (Lovenox -) 40 mg SQ DAILY [facility] Last Admin: 03/23/17 09:24 Dose: 40 mg Escitalopram Oxalate (Lexapro -) 10 mg PO DAILY [facility] Last Admin: 03/23/17 09:23 Dose: 10 mg Levofloxacin (Levaquin 750 Mg Premixed Ivpb -) 150 mls @ 100 mls/hr IVPB DAILY [facility] Last Admin: 03/23/17 09:24 Dose: 100 mls/hr Lactobacillus Acidophilus (Bacid -) 1 tab PO DAILY [facility] Last Admin: 03/23/17 09:24 Dose: 1 tab Methylprednisolone Sodium Succinate (Solu-Medrol -) 40 mg IVPB Q8H-IV [facility] Ondansetron HCl (Zofran Injection) 4 mg IVPB Q6H PRN PRN Reason: NAUSEA Pantoprazole Sodium (Protonix -) 40 mg PO DAILY [facility] Last Admin: 03/23/17 09:25 Dose: 40 mg Polyethylene Glycol (Miralax (For Daily Use) -) 17 gm PO DAILY [facility] Last Admin: 03/23/17 09:24 Dose: 17 gm Roflumilast (Daliresp -) 500 mcg PO DAILY [facility] - Objective Vital Signs: Vital Signs Temperature 98.4 F 03/23/17 13:55 Pulse Rate 64 03/23/17 13:55 Respiratory Rate 19 03/23/17 13:55 Blood Pressure 121/61 03/23/17 13:55 O2 Sat by Pulse Oximetry (%) 98 03/23/17 12:27 Constitutional: Yes: No Distress HENT: Yes: Atraumatic Neck: Yes: Supple Cardiovascular: Yes: Regular Rate and Rhythm Respiratory: Yes: Rhonchi Gastrointestinal: Yes: Normal Bowel Sounds Extremities: Yes: WNL Edema: No Peripheral Pulses WNL: Yes Neurological: Yes: Alert, Oriented Labs: CBC, BMP 03/19/17 07:00 03/22/17 08:30 INR, PTT INR 1.23 (0.82-1.09) H 03/18/17 15:50 Problem List - Problems (1) COPD (chronic obstructive pulmonary disease) with acute bronchitis Assessment/Plan: on iv steroids on abx Code(s): J44.0 - CHRONIC OBSTRUCTIVE PULMON DISEASE W ACUTE LOWER RESP INFCT (2) Hyperlipidemia Assessment/Plan: on meds stable Code(s): E78.5 - HYPERLIPIDEMIA, UNSPECIFIED (3) Hypertension Assessment/Plan: stable Code(s): I10 - ESSENTIAL (PRIMARY) HYPERTENSION Assessment/Plan covering dr sinclair
[2017-03-23] MEDS: methylPREDNISolone NA SUCC 40 MG/1 ML VIAL IVPB SCH (17:51)
[2017-03-23] MEDS: ATORVASTATIN CA 40 MG TABLET (FP) PO SCH (21:20)
[2017-03-24] MEDS: ALBUTEROL SO4 0.083% IH SOL 2.5 MG/3 ML VIAL.NEB. NEB SCH
[2017-03-24] MEDS: methylPREDNISolone NA SUCC 40 MG/1 ML VIAL IVPB SCH ×3 (01:11→17:40)
[2017-03-24] MEDS ORDERED: PT OWN MED DRAWER 7, Y5N ONE ×2 (09:46→21:07)
[2017-03-24] MEDS: PANTOPRAZOLE 40 MG TABLET (FP) PO SCH (09:49)
[2017-03-24] MEDS: LACTOBACILLUS ACIDOPHILUS 1 EACH TAB (FP) PO SCH (09:49)
[2017-03-24] MEDS: POLYETHYLENE GLYCOL 3350 119 GM BTL PO SCH (09:49)
[2017-03-24] MEDS: ESCITALOPRAM OXALATE 10 MG TABLET (FP) PO SCH (09:50)
[2017-03-24] MEDS: LEVOFLOXACIN 750 MG IVPB 150 ML IVPB SCH (09:50)
[2017-03-24] MEDS: DOCUSATE SODIUM 100 MG CAPSULE (FP) PO SCH ×2 (09:50→21:11)
[2017-03-24] MEDS: ASPIRIN COATED 81 MG TABLET.EC PO SCH (09:50)
[2017-03-24] MEDS: ROFLUMILAST 500 MCG TABLET PO SCH (09:51)
[2017-03-24] MEDS: ACLIDINIUM BROMIDE 400 MCG/INH AERO.POWD IH SCH ×2 (09:51→21:11)
[2017-03-24] MEDS: ENOXAPARIN NA (PORCINE) 40 MG/0.4 ML DISP.SYRIN SQ SCH (09:51)
--- NOTE | 2017-03-24 12:40 | PN ---
Progress Note (short form) - Note Progress Note: PULMONARY APPEARS TACHYPNEIC NEEDS HOME O2(ORDERED) VSS ANICTERIC DIMINISHED B/L BREATH SOUNDS S1S2 BS+ NO EDEMA CT/MEDS/LABS/NOTES REVIEWED IMP COPD EXACERBATION/PULMONARY HTN CHRONIC HYPOXEMIC RESPIRATORY FAILURE HTN HLD PULMONARY NODULE STABLE ANXIETY PLAN CHANGE BACK TO IV MEDROL INHALED BRONCHODILATORS ANTIBIOTICS/DALIRESP NASAL O2 WILL HAVE HOME O2 RECHECK PRE/POST O2 ASHLEY ERWIN MD
--- NOTE | 2017-03-24 13:24 | PN ---
Progress Note, Physician History of Present Illness: feeling good - Current Medication List Current Medications: Active Medications Acetaminophen (Tylenol -) 650 mg PO Q4H PRN PRN Reason: FEVER OR PAIN Aclidinium [place] (Tudorza -) 1 puff IH BID [facility] [place] Last Admin: 03/24/17 09:51 Dose: 1 puff Al Hydroxide/Mg Hydroxide (Mylanta Oral Suspension -) 30 ml PO Q6H PRN PRN Reason: DYSPEPSIA Last Admin: 03/21/17 08:27 Dose: 30 ml Aspirin (Ecotrin -) 81 mg PO DAILY [facility] [place] Last Admin: 03/24/17 09:50 Dose: 81 mg Atorvastatin Calcium (Lipitor -) 40 mg PO HS [facility] Last Admin: 03/23/17 21:20 Dose: 40 mg Docusate Sodium (Colace -) 100 mg PO BID [facility] Last Admin: 03/24/17 09:50 Dose: 100 mg Enoxaparin Sodium (Lovenox -) 40 mg SQ DAILY [facility] Last Admin: 03/24/17 09:51 Dose: 40 mg Escitalopram Oxalate (Lexapro -) 10 mg PO DAILY [facility] Last Admin: 03/24/17 09:50 Dose: 10 mg Levofloxacin (Levaquin 750 Mg Premixed Ivpb -) 150 mls @ 100 mls/hr IVPB DAILY [facility] [place] Last Admin: 03/24/17 09:50 Dose: 100 mls/hr Lactobacillus Acidophilus (Bacid -) 1 tab PO DAILY [facility] Last Admin: 03/24/17 09:49 Dose: 1 tab Methylprednisolone Sodium Succinate (Solu-Medrol -) 40 mg IVPB Q8H-IV [facility] Last Admin: 03/24/17 09:50 Dose: 40 mg Ondansetron HCl (Zofran Injection) 4 mg IVPB Q6H PRN PRN Reason: NAUSEA Pantoprazole Sodium (Protonix -) 40 mg PO DAILY [facility] Last Admin: 03/24/17 09:49 Dose: 40 mg Polyethylene Glycol (Miralax (For Daily Use) -) 17 gm PO DAILY [facility] Last Admin: 03/24/17 09:49 Dose: 17 gm Roflumilast (Daliresp -) 500 mcg PO DAILY [facility] [place] Last Admin: 03/24/17 09:51 Dose: 500 mcg - Objective Vital Signs: Vital Signs Temperature 97.8 F 03/24/17 08:00 Pulse Rate 66 10/01/17 10:58 Respiratory Rate 18 03/24/17 08:00 Blood Pressure 127/71 03/24/17 08:00 O2 Sat by Pulse Oximetry (%) 98 03/24/17 10:58 Constitutional: Yes: No Distress HENT: Yes: Atraumatic Neck: Yes: Supple Cardiovascular: Yes: Regular Rate and Rhythm Respiratory: Yes: CTA Bilaterally Gastrointestinal: Yes: Normal Bowel Sounds Extremities: Yes: WNL Neurological: Yes: Alert, Oriented Labs: CBC, BMP 03/19/17 07:00 03/22/17 08:30 INR, PTT INR 1.23 (0.82-1.09) H 03/18/17 15:50 Problem List - Problems (1) COPD (chronic obstructive pulmonary disease) with acute bronchitis Assessment/Plan: on iv steroids on abx Code(s): J44.0 - CHRONIC OBSTRUCTIVE PULMON DISEASE W ACUTE LOWER RESP INFCT (2) Hyperlipidemia Assessment/Plan: on meds stable Code(s): E78.5 - HYPERLIPIDEMIA, UNSPECIFIED (3) Hypertension Assessment/Plan: stable Code(s): I10 - ESSENTIAL (PRIMARY) HYPERTENSION Assessment/Plan covering dr sinclair
[2017-03-24] MEDS: ATORVASTATIN CA 40 MG TABLET (FP) PO SCH (21:11)
[2017-03-25] MEDS: ALBUTEROL SO4 0.083% IH SOL 2.5 MG/3 ML VIAL.NEB. NEB SCH ×3 (00:07→16:40)
[2017-03-25] MEDS: methylPREDNISolone NA SUCC 40 MG/1 ML VIAL IVPB SCH ×2 (01:44→09:44)
[2017-03-25] MEDS ORDERED: PT OWN MED DRAWER 7, Y5N ONE (09:32)
[2017-03-25] MEDS: ACLIDINIUM BROMIDE 400 MCG/INH AERO.POWD IH SCH ×2 (09:43→21:19)
[2017-03-25] MEDS: POLYETHYLENE GLYCOL 3350 119 GM BTL PO SCH (09:43)
[2017-03-25] MEDS: LEVOFLOXACIN 750 MG IVPB 150 ML IVPB SCH (09:44)
[2017-03-25] MEDS: ESCITALOPRAM OXALATE 10 MG TABLET (FP) PO SCH (09:45)
[2017-03-25] MEDS: LACTOBACILLUS ACIDOPHILUS 1 EACH TAB (FP) PO SCH (09:45)
[2017-03-25] MEDS: DOCUSATE SODIUM 100 MG CAPSULE (FP) PO SCH ×2 (09:45→21:19)
[2017-03-25] MEDS: ASPIRIN COATED 81 MG TABLET.EC PO SCH (09:45)
[2017-03-25] MEDS: ROFLUMILAST 500 MCG TABLET PO SCH (09:45)
[2017-03-25] MEDS: ENOXAPARIN NA (PORCINE) 40 MG/0.4 ML DISP.SYRIN SQ SCH (09:46)
[2017-03-25] MEDS: PANTOPRAZOLE 40 MG TABLET (FP) PO SCH (09:46)
--- NOTE | 2017-03-25 10:13 | PN ---
Progress Note (short form) - Note Progress Note: Pt. seen and examined. Back on IV steroids IV for shortness of breath yesterday and congestion Patient feels better today. Will resume ambulation and home. Still slight cough Tolerating diet Slight pedal edema noted. On exam: Vital Signs Temp 97.6 F 03/25/17 18:53 Pulse 66 03/25/17 18:53 Resp 21 03/25/17 18:53 BP 131/72 03/25/17 18:53 Pulse Ox 98 03/25/17 08:32 Intake & Output 03/24/17 03/25/17 03/25/17 23:59 11:59 23:59 Intake Total 450 10 550 Output Total 100 Balance 450 10 450 Intake: IVPB 250 10 200 Oral 200 350 Output: Urine 100 Void 100 Other: Voiding Method Toilet Toilet Urinal Bowel Movement No # Bowel Movements 0 patient alert Slight cough On examination of chest markedly decreased breath sounds. Heart regular Abdomen soft Extremities 1+ pedal edema bilaterally. impression: COPD with acute exacerbation. Anxiety about illness. Pulmonary nodule followed by pulmonology. Hyperlipidemia. Mild pedal edema. Plan: Lasix 20 mg by mouth x1 Pre-and post exercise O2 sat evaluation in the morning Depending on progress with shortness of breath and cough may switch back to oral prednisone and discharge tomorrow plus visiting nurse Repeat basic profile a.m. Problem List - Problems (1) COPD (chronic obstructive pulmonary disease) with acute bronchitis Code(s): J44.0 - CHRONIC OBSTRUCTIVE PULMON DISEASE W ACUTE LOWER RESP INFCT (2) Cough Code(s): R05 - COUGH (3) Hyperlipidemia Code(s): E78.5 - HYPERLIPIDEMIA, UNSPECIFIED (4) Hypertension Code(s): I10 - ESSENTIAL (PRIMARY) HYPERTENSION (5) Lung nodule seen on imaging study Code(s): R91.1 - SOLITARY PULMONARY NODULE (6) Anxiety about health Code(s): F41.8 - OTHER SPECIFIED ANXIETY DISORDERS
--- NOTE | 2017-03-25 17:17 | PN ---
Progress Note (short form) - Note Progress Note: PULMONARY NEEDS HOME O2(ORDERED) VSS ANICTERIC DIMINISHED B/L BREATH SOUNDS S1S2 BS+ NO EDEMA CT/MEDS/LABS/NOTES REVIEWED IMP COPD EXACERBATION/PULMONARY HTN CHRONIC HYPOXEMIC RESPIRATORY FAILURE HTN HLD PULMONARY NODULE STABLE ANXIETY PLAN CHANGE TO PREDNISONE INHALED BRONCHODILATORS ANTIBIOTICS/DALIRESP NASAL O2 WILL HAVE HOME O2 RECHECK PRE/POST O2 SAT OK FOR DISCHARGE IN AM R YAIMA OATES
[2017-03-25] MEDS ORDERED: FUROSEMIDE 20 MG TABLET (FP) PO ONE (19:25)
[2017-03-25] MEDS: ATORVASTATIN CA 40 MG TABLET (FP) PO SCH (21:19)
[2017-03-26 06:08] LABS: ANION GAP 7 (8-16); CO2 33 mmol/L (21-32); CREATININE 0.8 mg/dL (0.7-1.3); GLUCOSE,RANDOM 77 mg/dL (74-106)
[2017-03-26] MEDS: ALBUTEROL SO4 0.083% IH SOL 2.5 MG/3 ML VIAL.NEB. NEB SCH ×3 (06:58→11:02)
[2017-03-26 08:45] VITALS: BP 103/60; PULSE 71; TEMP 98.9
[2017-03-26] MEDS ORDERED: PT OWN MED DRAWER 7, Y5N ONE (09:23)
[2017-03-26] MEDS: ASPIRIN COATED 81 MG TABLET.EC PO SCH (09:56)
[2017-03-26] MEDS: ESCITALOPRAM OXALATE 10 MG TABLET (FP) PO SCH (09:56)
[2017-03-26] MEDS: LACTOBACILLUS ACIDOPHILUS 1 EACH TAB (FP) PO SCH (09:56)
[2017-03-26] MEDS: PANTOPRAZOLE 40 MG TABLET (FP) PO SCH (09:56)
[2017-03-26] MEDS: DOCUSATE SODIUM 100 MG CAPSULE (FP) PO SCH (09:56)
[2017-03-26] MEDS: ENOXAPARIN NA (PORCINE) 40 MG/0.4 ML DISP.SYRIN SQ SCH (09:57)
[2017-03-26] MEDS: POLYETHYLENE GLYCOL 3350 119 GM BTL PO SCH (09:57)
[2017-03-26] MEDS: LEVOFLOXACIN 750 MG IVPB 150 ML IVPB SCH (09:57)
[2017-03-26] MEDS: ACLIDINIUM BROMIDE 400 MCG/INH AERO.POWD IH SCH (09:57)
[2017-03-26] MEDS: ROFLUMILAST 500 MCG TABLET PO SCH (09:57)
[2017-03-26] MEDS ORDERED: predniSONE 20 MG TABLET (UD) PO SCH (10:00)
--- NOTE | 2017-03-26 11:12 | PN ---
Progress Note (short form) - Note Progress Note: PULMONARY Breathing better today. +dry cough without wheezing. Last Vital Signs Temp Pulse Resp BP Pulse Ox 98.9 F 71 20 103/60 96 03/26/17 08:45 03/26/17 11:02 03/26/17 08:45 03/26/17 08:45 03/26/17 11:02 Gen: NAD at rest Heart: RRR Lung: distant breath sounds, no wheezes Abd: soft, nontender Ext: no edema CBC, BMP 03/19/17 07:00 03/26/17 05:30 Active Medications Acetaminophen (Tylenol -) 650 mg PO Q4H PRN PRN Reason: FEVER OR PAIN Aclidinium [place] (Tudorza -) 1 puff IH BID [facility] Last Admin: 03/26/17 09:57 Dose: 1 puff Al Hydroxide/Mg Hydroxide (Mylanta Oral Suspension -) 30 ml PO Q6H PRN PRN Reason: DYSPEPSIA Last Admin: 03/21/17 08:27 Dose: 30 ml Albuterol Sulfate (Ventolin 0.083% Nebulizer Soln -) 1 amp NEB QIDR [facility] Last Admin: 03/26/17 11:02 Dose: 1 amp Aspirin (Ecotrin -) 81 mg PO DAILY [facility] Last Admin: 03/26/17 09:56 Dose: 81 mg Atorvastatin Calcium (Lipitor -) 40 mg PO HS [facility] Last Admin: 03/25/17 21:19 Dose: 40 mg Docusate Sodium (Colace -) 100 mg PO BID [facility] Last Admin: 03/26/17 09:56 Dose: 100 mg Enoxaparin Sodium (Lovenox -) 40 mg SQ DAILY [facility] Last Admin: 03/26/17 09:57 Dose: 40 mg Escitalopram Oxalate (Lexapro -) 10 mg PO DAILY [facility] Last Admin: 03/26/17 09:56 Dose: 10 mg Lactobacillus Acidophilus (Bacid -) 1 tab PO DAILY [facility] Last Admin: 03/26/17 09:56 Dose: 1 tab Levofloxacin (Levaquin) 500 mg PO DAILY [facility] Ondansetron HCl (Zofran Injection) 4 mg IVPB Q6H PRN PRN Reason: NAUSEA Pantoprazole Sodium (Protonix -) 40 mg PO DAILY [facility] Last Admin: 03/26/17 09:56 Dose: 40 mg Polyethylene Glycol (Miralax (For Daily Use) -) 17 gm PO DAILY [facility] Last Admin: 03/26/17 09:57 Dose: Not Given Prednisone (Deltasone -) 40 mg PO DAILY [facility] Last Admin: 03/26/17 09:56 Dose: 40 mg Roflumilast (Daliresp -) 500 mcg PO DAILY [facility] Last Admin: 03/26/17 09:57 Dose: 500 mcg A/P Acute COPD Exacerbation improving URI Chronic Hypoxic Respiratory Failure HTN Lung Nodule - prednisone taper as outpt - inhaled bronchodilators - O2 to keep SpO2 >90% - outpt f/u of lung nodule
--- NOTE | 2017-03-26 12:54 | DS ---
Physical Examination Vital Signs: Vital Signs Temperature 98.9 F 03/26/17 08:45 Pulse Rate 71 03/26/17 11:02 Respiratory Rate 20 03/26/17 10:00 Blood Pressure 103/60 03/26/17 08:45 O2 Sat by Pulse Oximetry (%) 96 03/26/17 11:02 Constitutional: Yes: Calm Eyes: Yes: Conjunctiva Clear Cardiovascular: Yes: Regular Rate and Rhythm Respiratory: Yes: Diminished. No: Rales, Wheezes Gastrointestinal: Yes: Soft Renal/: No: Dong Present Edema: LLE: Trace, RLE: Trace Neurological: Yes: Alert, Oriented Labs: CBC, BMP 03/19/17 07:00 03/26/17 05:30 Discharge Summary Reason For Visit: ACUTE BRONCHITIS WITH COPD Current Active Problems Acute interstitial pneumonitis (Acute) COPD (chronic obstructive pulmonary disease) with acute bronchitis (Acute) Hyperlipidemia On Rx Anxiety About Illness{Acute) Pulmonary Nodule(Acute) Procedures: Principal: IV Steroids and IV antibiotics Other Procedures: F/U Lab and Pulmonary Cosultations and PT. Hospital Course: Slow to improve despite IV Rx and aerosol treatment. Anxiety had hindered the progress. He has qualified for home O2. Condition: Improved - Instructions Diet, Activity, Other Instructions: No added salt. Taper steroids as follows: 50 mg for 2 days; then 40 mg for 2 days; then 30 mg for 2 days; then 20 mg for 2 days then stay on 10 mg until the DrMisael is seen. you should be on the pantoprazole once a day until you are finished the steroids. See Dr. Dahl within [address] Smallwood for an Appt. home O2 at 2 L/min Referrals: Neeraj Smallwood MD [Staff Physician] - Nile Dahl MD [Primary Care Provider] - Disposition: [facility]NS/HOME HEALTH CARE - Home Medications Comprehensive Discharge Medication List: Ambulatory Orders Tiotropium [place] [Spiriva] 18 mcg IH DAILY 06/23/11 Budesonide/Formeterol Fumarate [SYMBICORT 80/4.5mcg -] 1 inh PO DAILY 02/15/15 Aspirin Coated [Ecotrin -] 81 mg PO DAILY tablet.ec 11/20/15 Atorvastatin Ca [Lipitor] 40 mg PO HS tablet 11/20/15 Escitalopram Oxalate [Lexapro -] 10 mg PO DAILY 02/10/17 Acetaminophen [Tylenol .Regular Strength -] 650 mg PO Q4H PRN #0 tablet Albuterol 0.083% Nebulizer Joy [Ventolin 0.083% Nebulizer Soln -] 1 amp NEB Q4H PRN #0 amp 02/13/17 Docusate Sodium [Colace -] 100 mg PO BID cap 03/22/17 Lactobacillus Acidophilus [Bacid -] 1 tab PO DAILY tab 03/22/17 Mag Hydrox/Al Hydrox/Simeth [Mylanta Oral Suspension -] 30 ml PO Q6H PRN #240 ml 03/22/17 Pantoprazole Sodium [Protonix -] 40 mg PO DAILY #30 tablet 03/22/17 Polyethylene Glycol 3350 [Miralax 119 gm Btl -] 17 gm PO DAILY #1 bottle Levofloxacin [Levaquin] 500 mg PO DAILY #7 tab 03/26/17 Prednisone [Deltasone -] 40 mg PO DAILY tablet 03/26/17 Roflumilast [Daliresp -] 500 mcg PO DAILY #30 tablet 03/26/17
[2017-03-27] MEDS ORDERED: LEVOFLOXACIN 500 MG TABLET (FP) PO SCH (06:00)
== END 2017-03-26 13:24 | disposition home health service (06) | DRG 191 ==
LOC: JER 12:59 → JERBED 18:57 → J6S 21:04
PROVIDERS: ADMIT Internal Medicine; ATTEND Internal Medicine
DX: J44.1 Chronic obstructive pulmonary disease with (acute) exacerbation (principal); J84.114 Acute interstitial pneumonitis; J96.11 Chronic respiratory failure with hypoxia; E78.5 Hyperlipidemia, unspecified; R91.1 Solitary pulmonary nodule; Z87.891 Personal history of nicotine dependence; Z99.81 Dependence on supplemental oxygen; F41.9 Anxiety disorder, unspecified; I10 Essential (primary) hypertension; J06.9 Acute upper respiratory infection, unspecified; K59.00 Constipation, unspecified; I27.20 Pulmonary hypertension, unspecified
CPT/HCPCS: 36415; 71010-TC; 80048; 80053; 81003; 81015; 83605; 83735; 84100; 84484; 85025; 85610; 85730; 87040; 87070; 87086; 87205; 93005; 93010; 94640; 94761; 97116-GP; 97161-GP; 99284-25

== ENCOUNTER 2017-06-04 15:09 | Inpatient (IN) | payer OTHER, BC ==
[2017-06-04 16:58] LABS: BASOPHIL 0.5 % (0-2.0); EOSINOPHIL 0.2 % (0-4.5); MCH 30.8 pg (25.7-33.7); MCHC 33.7 g/dl (32.0-35.9); MEAN CELL VOLUME 91.3 fl (80-96); MEAN PLT VOLUME 7.6 fl (7.5-11.1); PLATELET COUNT 193 K/MM3 (134-434); RDW 14.9 % (11.9-15.9); WHITE BLOOD COUNT 12.3 K/mm3 (4.0-10.0)
[2017-06-04 17:22] LABS: ALBUMIN 3.9 g/dl (3.4-5.0); ANION GAP 6 (8-16); BILIRUBIN,TOTAL 0.7 mg/dL (0.2-1.0); CALCIUM 9.1 mg/dL (8.5-10.1); CO2 29 mmol/L (21-32); CREATININE 1.1 mg/dL (0.7-1.3); GLUCOSE,RANDOM 116 mg/dL (74-106); SGOT/AST 16 U/L (15-37); SGPT/ALT 19 U/L (12-78); TOT PROT 6.3 g/dl (6.4-8.2)
[2017-06-04 17:23] LABS: ALK PHOS 51 U/L (45-117)
--- NOTE | 2017-06-04 17:36 | PDOC ---
History of Present Illness - General Chief Complaint: Chest Pain Stated Complaint: CHEST PAIN Time Seen by Provider: 06/04/17 16:06 - History of Present Illness Initial Comments: 06/04/17 17:26 "The patient is a 86 year old male, with a significant past medical history of HTN, HLD, COPD, Lung nodule who presents to the emergency department for evaluation of chest pain. Patient reports sudden onset of chest pain that began this afternoon while lifting weights. He states that he was lying on the floor Pt reports pinching, L sided chest pain which lasted for an hour. Patient denies any associated SOB, nausea, diaphoresis. Patient took aspirin and 2 Aleves and reports relief. Patient presents to the ED for further evaluation. Patient denies headache or dizziness. Patient denies fever, chills, abdominal pain, nausea, vomit, diarrhea or constipation. Patient denies dysuria, frequency, urgency or hematuria. Patient denies sick contacts or recent travel. Allergies: shrimps Past surgical history: Former smoker (smoked for 35 years ). Social drinker. No illicit drugs. Social history:None PCP: Dr. Smallwood " Past History - Past Medical History Allergies/Adverse Reactions: Allergies Allergy/AdvReac Type Severity Reaction Status Date / Time No Known Drug Allergies Allergy Verified 06/04/17 15:39 shrimp Allergy Unknown lip Uncoded 06/04/17 15:39 swelling Home Medications: Ambulatory Orders Tiotropium [place] [Spiriva] 18 mcg IH DAILY 06/23/11 Budesonide/Formeterol Fumarate [SYMBICORT 160/4.5mcg -] 1 inh PO DAILY 06/04/17 Cancer: Yes (Lung Nodule (?)) COPD: Yes HTN: Yes Hypercholesterolemia: Yes - Immunization History Immunization Up to Date: Yes - Suicide/Smoking/Psychosocial Hx Smoking Status: Yes Smoking History: Former smoker Have you smoked in the past 12 months: No Number of Cigarettes Smoked Daily: 0 If you are a former smoker, when did you quit?: 1992 Information on smoking cessation initiated: No Hx Alcohol Use: No Drug/Substance Use Hx: No Substance Use Type: None Review of Systems - Review of Systems Comments:: 06/04/17 17:37 " GENERAL/CONSTITUTIONAL: No fever or chills. No weakness. HEAD, EYES, EARS, NOSE AND THROAT: No change in vision. No ear pain or discharge. No sore throat. CARDIOVASCULAR: +chest pain. No shortness of breath. RESPIRATORY: No cough, wheezing, or hemoptysis. GASTROINTESTINAL: No nausea, vomiting, diarrhea or constipation. GENITOURINARY: No dysuria, frequency, or change in urination. MUSCULOSKELETAL: No joint or muscle swelling or pain. No neck or back pain. SKIN: No rash NEUROLOGIC: No headache, vertigo, loss of consciousness, or change in strength/ sensation. ENDOCRINE: No increased thirst. No abnormal weight change. HEMATOLOGIC/LYMPHATIC: No anemia, easy bleeding, or history of blood clots. ALLERGIC/IMMUNOLOGIC: No hives or skin allergy. " *Physical Exam - Vital Signs Last Vital Signs Temp Pulse Resp BP Pulse Ox 98.2 F 54 L 20 137/76 99 06/04/17 22:15 06/05/17 06:24 06/05/17 06:24 06/05/17 06:24 06/05/17 06:24 - Physical Exam Comments: 06/04/17 17:38 " GENERAL: Awake, alert, and fully oriented, in no acute distress HEAD: No signs of trauma EYES: PERRLA, EOMI, sclera anicteric, conjunctiva clear ENT: Auricles normal inspection, hearing grossly normal, nares patent, oropharynx clear without exudates. Moist mucosa NECK: Nontender, no stepoffs, Normal ROM, supple, no lymphadenopathy, JVD, or masses LUNGS: Breath sounds equal, clear to auscultation bilaterally. No wheezes, and no crackles HEART: Regular rate and rhythm, normal S1 and S2, no murmurs, rubs or gallops ABDOMEN: Soft, nontender, normoactive bowel sounds. No guarding, no rebound. No masses EXTREMITIES: Normal range of motion, no edema. No clubbing or cyanosis. No cords, erythema, or tenderness NEUROLOGICAL: Cranial nerves II through XII intact. 5/5 strength and sensation in all extremities, Normal speech, normal gait SKIN: Warm, Dry, normal turgor, no rashes or lesions noted." Heart Score/ECG Review - History History: Slightly suspicious - Electrocardiogram EKG: Normal - Age Age: >/= 65 - Risk Factors Risk Factors Heart Score: Yes Hx Hypercholesterolemia, Yes Hx Hypertension, Yes Smoking History Based on the list above the patient has:: >/=3 risk factors or Hx atherosclerotic disease - Troponin Troponin: 1-3x normal limit - Score Heart Score - Total: 5 - ECG Impressions Comment:: 06/04/17 17:37 NSR, no SULMA/STDs, no TWIs, axis and intervals wnl ED Treatment Course - LABORATORY CBC & Chemistry Diagram: 06/05/17 07:15 06/04/17 16:35 - ADDITIONAL ORDERS Additional order review: 06/04/17 16:35 RBC 4.68 MCV 91.3 MCHC 33.7 RDW 14.9 MPV 7.6 Neutrophils % 84.0 H Lymphocytes % 10.7 D Monocytes % 4.6 D Eosinophils % 0.2 D Basophils % 0.5 - RADIOLOGY Radiology Studies Ordered: Category Date Time Status CHEST X-RAY PORTABLE* [RAD] Stat Radiology 06/04/17 16:10 Completed - Medications Given in the ED: ED Medications Discontinued Medications Generic Name Dose Route Start Last Admin Trade Name Freq PRN Reason Stop Dose Admin Aspirin 162 mg 06/04/17 17:39 06/04/17 18:08 Asa - PO 06/04/17 17:40 162 mg ONCE ONE Administration Enoxaparin Sodium 80 mg 06/04/17 18:45 06/04/17 19:13 Lovenox - SQ 80 mg ONCE QUETA Administration Metoprolol Tartrate 5 mg 06/04/17 22:11 06/04/17 22:15 Lopressor Injection - IVPUSH 06/04/17 22:12 5 mg ONCE ONE Administration Nitroglycerin 0.4 mg 06/04/17 22:12 06/04/17 23:53 Nitrostat - SL 06/04/17 22:13 Not Given ONCE ONE Ticagrelor 180 mg 06/05/17 03:11 06/05/17 03:27 Brilinta - PO 06/05/17 03:12 180 mg ONCE ONE Administration Medical Decision Making - Medical Decision Making 06/04/17 17:38 86 M with h/o HTN, HLD, former smoker, presenting with L sided chest pain, now resolved. Pt with no ischemic changes on EKG. However, upon discussion with Dr. 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 Orr), pt has known disease per cardiac cath report from last year, concerning for ACS. - Labs, serial trops - CXR - Aspirin - Admit tele 06/04/17 18:40 CBC,CMP WBC 12.3 K/mm3 (4.0-10.0) H D 06/04/17 16:35 RBC 4.68 M/mm3 (4.00-5.60) 06/04/17 16:35 Hgb 14.4 GM/dL (11.7-16.9) 06/04/17 16:35 Hct 42.8 % (35.4-49) 06/04/17 16:35 MCV 91.3 fl (80-96) 06/04/17 16:35 MCH 30.8 pg (25.7-33.7) 06/04/17 16:35 MCHC 33.7 g/dl (32.0-35.9) 06/04/17 16:35 RDW 14.9 % (11.9-15.9) 06/04/17 16:35 Plt Count 193 K/MM3 (134-434) 06/04/17 16:35 MPV 7.6 fl (7.5-11.1) 06/04/17 16:35 Neutrophils % 84.0 % (42.8-82.8) H 06/04/17 16:35 Lymphocytes % 10.7 % (8-40) D 06/04/17 16:35 Monocytes % 4.6 % (3.8-10.2) D 06/04/17 16:35 Eosinophils % 0.2 % (0-4.5) D 06/04/17 16:35 Basophils % 0.5 % (0-2.0) 06/04/17 16:35 Sodium 141 mmol/L (136-145) 06/04/17 16:35 Potassium 4.1 mmol/L (3.5-5.1) 06/04/17 16:35 Chloride 106 mmol/L (98-107) 06/04/17 16:35 Carbon Dioxide 29 mmol/L (21-32) 06/04/17 16:35 Anion Gap 6 (8-16) L 06/04/17 16:35 BUN 27 mg/dL (7-18) H 06/04/17 16:35 Creatinine 1.1 mg/dL (0.7-1.3) D 06/04/17 16:35 Creat Clearance w eGFR > 60 (>60) 06/04/17 16:35 Random Glucose 116 mg/dL (74-106) H D 06/04/17 16:35 Calcium 9.1 mg/dL (8.5-10.1) 06/04/17 16:35 Total Bilirubin 0.7 mg/dL (0.2-1.0) 06/04/17 16:35 AST 16 U/L (15-37) 06/04/17 16:35 ALT 19 U/L (12-78) 06/04/17 16:35 Alkaline Phosphatase 51 U/L (45-117) 06/04/17 16:35 Creatine Kinase 99 IU/L (39-308) 06/04/17 16:35 Troponin I 0.94 ng/ml (0.00-0.05) H* D 06/04/17 16:35 Total Protein 6.3 g/dl (6.4-8.2) L 06/04/17 16:35 Albumin 3.9 g/dl (3.4-5.0) 06/04/17 16:35 Pt with trop 0.94. Pt given ASA and lovenox for possible NSTEMI Will admit to [facility] for trending of troponin and cardiology evaluation. Case discussed in detail with admitting physician including history, physical exam and ancillary studies. Admitting physician has assumed care for the patient and will follow all pending diagnostics and complete the evaluation and treatment. *DC/Admit/Observation/Transfer Diagnosis at time of Disposition: Chest pain - Discharge Dispostion Admit: Yes - Referrals - Patient Instructions - Post Discharge Activity - Attestations Physician Attestion: 06/04/17 18:45 I, Dr. Jaylan Massey MD, attest that this document has been prepared under my direction and personally reviewed by me in its entirety. I further attest, that it accurately reflects all work, treatment, procedures and medical decision -making performed by me.
[2017-06-04] MEDS ORDERED: ASPIRIN 81 MG CHEWABLE TABLETS PO ONE (17:39)
[2017-06-04] MEDS ORDERED: ASPIRIN 81 MG CHEWABLE TABLETS ONE (18:05)
[2017-06-04 18:38] LABS: TROPONIN I 0.94 ng/ml (0.00-0.05)
[2017-06-04] MEDS ORDERED: ENOXAPARIN NA (PORCINE) 80 MG/0.8 ML DISP.SYRIN SQ SCH (18:45)
[2017-06-04] MEDS ORDERED: ENOXAPARIN NA (PORCINE) 80 MG/0.8 ML DISP.SYRIN SQ ONE (19:17)
--- NOTE | 2017-06-04 19:41 | HP ---
Admitting History and Physical - Primary Care Physician PCP: Nile Dahl - Admission Chief Complaint: Chest Pain History of Present Illness: This is a 86 y/o man with a past medical history of COPD (O2, HS), HTN, HLD. Who presents to the ED via ambulance from home with Chest Pain since 1pm. Patient reports the CP as sharp, tight non radiating started after exercising at the gym. He reports taking baby Asa at home. He reports the CP and nausea- now resolved. Patient denies fever, chills, cough, SOB, AP, V/D, constipation, dysuria. History Source: Patient, Family Member Limitations to Obtaining History: No Limitations - Past Medical History Cardiovascular: Yes: HTN, Hyperlipdemia Pulmonary: Yes: COPD, Pneumonia Gastrointestinal: Yes: Constipation Renal/: Yes: BPH Psych: Yes: Anxiety Musculoskeletal: Yes: Osteoarthritis ENT: Yes: Sinusitis - Past Surgical History Past Surgical History: Yes: Cataract Removal (bilateral) - Smoking History Smoking history: Former smoker Have you smoked in the past 12 months: No Aproximately how many cigarettes per day: 0 If you are a former smoker, when did you quit?: 1992 - Alcohol/Substance Use Hx Alcohol Use: No History of Substance Use: reports: None - Social History Usual Living Arrangement: Yes: With Spouse ADL: Independent Occupation: retired History of Recent Travel: No Home Medications - Allergies Allergies/Adverse Reactions: Allergies Allergy/AdvReac Type Severity Reaction Status Date / Time No Known Drug Allergies Allergy Verified 06/04/17 15:39 shrimp Allergy Unknown lip Uncoded 06/04/17 15:39 swelling - Home Medications Home Medications: Ambulatory Orders Tiotropium [place] [Spiriva] 18 mcg IH DAILY 06/23/11 Budesonide/Formeterol Fumarate [SYMBICORT 160/4.5mcg -] 1 inh PO DAILY 06/04/17 Home Medications (free text): Asa 81mg po daily. Lipitor 10mg po daily Family Disease History - Family Disease History Family Disease History: Respiratory: Father, Other: Mother (sinus issues) Review of Systems - Review of Systems Constitutional: reports: No Symptoms Eyes: reports: No Symptoms HENT: reports: No Symptoms Neck: reports: No Symptoms Cardiovascular: reports: Chest Pain Respiratory: reports: No Symptoms Gastrointestinal: reports: Nausea Genitourinary: reports: No Symptoms Musculoskeletal: reports: No Symptoms Integumentary: reports: No Symptoms Neurological: reports: No Symptoms Endocrine: reports: No Symptoms Hematology/Lymphatic: reports: No Symptoms Psychiatric: reports: No Symptoms Pain Intensity: 0 Physical Examination Vital Signs: Vital Signs Temperature 98.2 F 06/04/17 18:47 Pulse Rate 61 06/04/17 18:47 Respiratory Rate 22 06/04/17 18:47 Blood Pressure 140/59 06/04/17 18:47 O2 Sat by Pulse Oximetry (%) 96 06/04/17 18:47 Constitutional: Yes: Well Nourished, Anxious Eyes: Yes: WNL, Conjunctiva Clear, PERRL HENT: Yes: WNL, Atraumatic, Normocephalic Neck: Yes: WNL, Supple, Trachea Midline Cardiovascular: Yes: WNL, Regular Rate and Rhythm, S1, S2 Respiratory: Yes: Diminished Gastrointestinal: Yes: WNL, Normal Bowel Sounds, Soft Renal/: Yes: WNL Musculoskeletal: Yes: WNL Extremities: Yes: WNL Edema: No Peripheral Pulses WNL: Yes Integumentary: Yes: Venous Stasis Changes (lower legs) Neurological: Yes: WNL, Alert, Oriented ...Motor Strength: WNL Psychiatric: Yes: WNL, Alert, Oriented Labs: CBC, BMP 06/04/17 16:35 06/04/17 16:35 Laboratory Results - last 24 hr 06/04/17 06/04/17 06/04/17 16:35 16:35 16:35 WBC 12.3 H D RBC 4.68 Hgb 14.4 Hct 42.8 MCV 91.3 MCH 30.8 MCHC 33.7 RDW 14.9 Plt Count 193 MPV 7.6 Neutrophils % 84.0 H Lymphocytes % 10.7 D Monocytes % 4.6 D Eosinophils % 0.2 D Basophils % 0.5 Sodium 141 Potassium 4.1 Chloride 106 Carbon Dioxide 29 Anion Gap 6 L BUN 27 H Creatinine 1.1 D Creat Clearance w eGFR > 60 Random Glucose 116 H D Calcium 9.1 Total Bilirubin 0.7 AST 16 ALT 19 Alkaline Phosphatase 51 Creatine Kinase 99 Troponin I 0.94 H* D Total Protein 6.3 L Albumin 3.9 Imaging - Results Chest X-ray: Report Reviewed, Image Reviewed EKG: Image Reviewed (NSR 66bpm, no ST or TWI HI int 166ms QRS 100ms QT/QTC 418/ 438) Problem List - Problems (1) Chest pain Code(s): R07.9 - CHEST PAIN, UNSPECIFIED (2) Hyperlipidemia Code(s): E78.5 - HYPERLIPIDEMIA, UNSPECIFIED (3) Leukocytosis Code(s): D72.829 - ELEVATED WHITE BLOOD CELL COUNT, UNSPECIFIED (4) COPD (chronic obstructive pulmonary disease) Code(s): J44.9 - CHRONIC OBSTRUCTIVE PULMONARY DISEASE, UNSPECIFIED Qualifiers: COPD type: COPD with acute exacerbation Qualified Code(s): J44.1 - Chronic obstructive pulmonary disease with (acute) exacerbation (5) Hypertension Code(s): I10 - ESSENTIAL (PRIMARY) HYPERTENSION (6) DVT prophylaxis Code(s): YFM4394 - Assessment/Plan This is a 86 y/o man with a PMHx of COPD, HTN, HLD. Admitted to Telemetry Chest Pain, NSTEMI Plan: 1. Cardiology: Chest Pain NSTEMI HTN HLD - Continue cardiac monitoring - HEART Score 5 - NOE Score 5 - Serial Enzymes- positive x1, will continue to trend - Asa, Lovenox given in ED - Lovenox BID - Asa - Will start on High dose statin tonight and continue - BB - EKG reviewed- NSR 66bpm, no ST or TWI - Chest Xray report- no radiographic evidence of acute disease - Echo in am 2. COPD - No acute exacerbation - Continue Spiriva, Symbicort - 2LNC HS 3. Leukocytosis - Likely secondary to inflammatory response - Patient is afebrile, does not appear toxic - Repeat CBCD in am 4. FEN - PO Fluids as tolerated - Replete lytes prn - Low Na, Low Cholesterol Diet 5. DVT Prophylaxis - OOB - SCDs - on Lovenox for NSTEMI Code Status: Full Code Dispo: Requires Inpatient Care Visit type - Emergency Visit Emergency Visit: Yes ED Registration Date: 06/04/17 Care time: The patient presented to the Emergency Department on the above date and was hospitalized for further evaluation of their emergent condition. - New Patient This patient is new to me today: Yes Date on this admission: 06/04/17 - Critical Care Critical Care patient: No
[2017-06-04] MEDS: ATORVASTATIN CA 80 MG TABLET (FP) PO SCH (22:05)
[2017-06-04] MEDS ORDERED: METOPROLOL TARTRATE 5 MG/5 ML VIAL IVPUSH ONE (22:11)
[2017-06-04] MEDS ORDERED: NITROGLYCERIN SUBLINGUAL 1/150 0.4 MG TAB SL ONE (22:12)
[2017-06-04] MEDS ORDERED: ATORVASTATIN CA 80 MG TABLET (FP) ONE (22:15)
[2017-06-04] MEDS: BUDESONIDE/FORMETEROL FUMARATE 160/4.5 mcg INHALER IH SCH (22:36)
[2017-06-05 01:53] LABS: INR 1.16 (0.82-1.09); PROTHROMBIN TIME (PATIENT) 13.1 SEC (9.98-11.88)
[2017-06-05 02:20] LABS: TROPONIN I 11.78 ng/ml (0.00-0.05)
[2017-06-05] MEDS ORDERED: TICAGRELOR 90 MG TABLET PO ONE (03:11)
--- NOTE | 2017-06-05 03:44 | HOSP ---
Subjective - Review of Symptoms Events since last encounter: Hospitalist Encounter Notified by primary RN, that the 2nd Troponin I 10.78 Ordered stat EKG for comparison Sebastian gimenez now NPO RN to place call to Dr. Alamo- possible transfer for Cardiac Cath today Reviewed EKG- SB, no ST or TWI Patient is asleep but arousable denies CP or SOB 0655- Discussed case with Dr. Alamo, regarding elevated Troponin I. Plan: D/C Lovenox Start on Heparin Drip Protocol with bolus stat No BBs Informed primary RN via telephone, to start Heparin Drip w/bolus Physical Examination Vital Signs: Vital Signs Temperature 98.2 F 06/04/17 22:15 Pulse Rate 57 L 06/05/17 01:22 Respiratory Rate 20 06/05/17 01:22 Blood Pressure 120/57 06/05/17 01:22 O2 Sat by Pulse Oximetry (%) 98 06/05/17 01:22 Labs: CBC, BMP 06/04/17 16:35 06/04/17 16:35 Critical Care Total Critical Care Time (in minutes): 45 Critical Care Statement: The care of this patient involved high complexity decision making to prevent further life threatening deterioration of the patient 's condition and/or to evaluate & treat vital organ system(s) failure or risk of failure.
[2017-06-05] MEDS ORDERED: ENOXAPARIN NA (PORCINE) 80 MG/0.8 ML DISP.SYRIN SQ SCH (07:00)
[2017-06-05] MEDS ORDERED: HEPARIN NA (PORCINE) 5,000 UNITS/ML 1ML VIAL IVPUSH PRN ×2 (07:00)
[2017-06-05] MEDS ORDERED: HEPARIN INFUSION - 25,000 UNITS/500 ML INFUS.BAG IVPB SCH (07:00)
[2017-06-05 07:29] LABS: BASOPHIL 0.5 % (0-2.0); EOSINOPHIL 1.5 % (0-4.5); MCH 30.7 pg (25.7-33.7); MCHC 33.6 g/dl (32.0-35.9); MEAN CELL VOLUME 91.4 fl (80-96); MEAN PLT VOLUME 7.3 fl (7.5-11.1); NEUTROPHILS 67.5 % (42.8-82.8); PLATELET COUNT 191 K/MM3 (134-434); RDW 14.6 % (11.9-15.9); WHITE BLOOD COUNT 8.2 K/mm3 (4.0-10.0)
[2017-06-05 07:53] LABS: PHOSPHOROUS 3.3 mg/dL (2.5-4.9)
[2017-06-05 08:23] LABS: TROPONIN I 6.24 ng/ml (0.00-0.05)
[2017-06-05] MEDS: HEPARIN SOD,PORK IN 0.45% NACL 25,000 UNIT/500 ML INFUS.BAG IVPB SCH ×2 (08:39→14:46)
--- NOTE | 2017-06-05 08:44 | PN ---
Progress Note (short form) - Note Progress Note: Patient seen and lab and EKG's reviewed. Troponin very elevated: over 10 now 6. No obvious EKG change. He had nausea with chest pain; probably inferior wall injury. Await Cardiology MD for decision making. Past history of COPD and stable lung mass. former smoker On exam Vital Signs Temp 98.7 F 06/05/17 14:00 Pulse 74 06/05/17 14:00 Resp 20 06/05/17 14:00 BP 112/70 06/05/17 14:00 Pulse Ox 97 06/05/17 12:05 Intake & Output 06/04/17 06/05/17 06/05/17 23:59 11:59 23:59 Intake Total 100 Balance 100 Weight 175 lb 169 lb Intake: IV 100 HEPARIN-1/2NS 25,000 100 UNITS/500 25,000 unit In 500 ml @ 1,000 UNITS/HR 20 mls/hr IVPB TITR QUETA Rx#:[id number] Other: Voiding Method Urinal Urinal Bowel Movement Yes # Bowel Movements 1 Height 5 ft 9 in 5 ft 9 in Body Mass Index (BMI) 25.8 24.9 Weight Measurement Method Stated by Patient Weight Measurement Method Est/Stated by Patient he is alert Anxious 2+ carotids Heart was regular Lungs decreased breath sounds I do not hear any wheezes Extremities no edema Abnormal Lab Results 06/05/17 06/05/17 06/05/17 01:00 01:00 07:15 MPV 7.3 L PT with INR 13.10 H INR 1.16 H PTT (Actin FS) Creatine Kinase Index 10.7 H* CK-MB (CK-2) 31.465 H Troponin I 11.78 H* D Total LDL Cholesterol 06/05/17 06/05/17 07:15 13:40 MPV PT with INR INR PTT (Actin FS) 62.0 H D Creatine Kinase Index 10.3 H* CK-MB (CK-2) 26.599 H Troponin I 6.24 H* D Total LDL Cholesterol 103 H D Impression: Chest pain acute myocardial ischemia COPD Lung mass Anxiety Former smoker Hyperlipidemia Plan: Cardiology consult Pulmonary consult Current plans to the transfer to [facility] for cardiac cath
--- NOTE | 2017-06-05 11:29 | CON.CARD ---
Cardiology Consult (text) - Consultation Consultation Note: cc: cp hpi: 86 m hx htn, hld, copd here with cp. No hx of anginal sxs. Had been feeling well until yesterday when he was lifting some light wts and noticed left chest burning. He took asa but sxs persisted so came to ER. Sxs resolved after 1-2 hours. No associated sxs. Feels well now, no further cp. No sob, palps, dizzy, loc, pnd, orthopnea, le edema. Sees dr carpenter for cardio. pmh: per hpi psh: nc social: ex tob fam: no premature cad, scd ros: per hpi; no nvd, fever, cough, wt loss, abd pain, tapia, vision changes, gib, hematuria meds: Home Medications Medication Instructions Recorded Tiotropium [place] [Spiriva] 18 mcg IH DAILY 06/23/11 Budesonide/Formeterol Fumarate 1 inh PO DAILY 06/04/17 [SYMBICORT 160/4.5mcg -] pe: Vital Signs Temp 97.6 F 06/05/17 10:50 Pulse 62 06/05/17 10:50 Resp 18 06/05/17 10:50 BP 144/86 06/05/17 10:50 Pulse Ox 100 06/05/17 09:31 Intake & Output 06/04/17 06/04/17 06/05/17 11:59 23:59 11:59 Weight 175 lb Other: Voiding Method Urinal Height 5 ft 9 in Body Mass Index (BMI) 25.8 Weight Measurement Method Est/Stated by Patient nad no jvd rrr s1s2 no mrg cta bl nl eff aaox3 no le e/c/c abd nt nd pos bs no jaundice diaphoresis pos dp pt, no carotid bruits Laboratory Last Values WBC 8.2 K/mm3 (4.0-10.0) D 06/05/17 07:15 RBC 4.70 M/mm3 (4.00-5.60) 06/05/17 07:15 Hgb 14.4 GM/dL (11.7-16.9) 06/05/17 07:15 Hct 42.9 % (35.4-49) 06/05/17 07:15 MCV 91.4 fl (80-96) 06/05/17 07:15 MCH 30.7 pg (25.7-33.7) 06/05/17 07:15 MCHC 33.6 g/dl (32.0-35.9) 06/05/17 07:15 RDW 14.6 % (11.9-15.9) 06/05/17 07:15 Plt Count 191 K/MM3 (134-434) 06/05/17 07:15 MPV 7.3 fl (7.5-11.1) L 06/05/17 07:15 Neutrophils % 67.5 % (42.8-82.8) 06/05/17 07:15 Lymphocytes % 23.0 % (8-40) D 06/05/17 07:15 Monocytes % 7.5 % (3.8-10.2) 06/05/17 07:15 Eosinophils % 1.5 % (0-4.5) D 06/05/17 07:15 Basophils % 0.5 % (0-2.0) 06/05/17 07:15 PT with INR 13.10 SEC (9.98-11.88) H 06/05/17 01:00 INR 1.16 (0.82-1.09) H 06/05/17 01:00 PTT (Actin FS) 32.1 SECONDS (26.9-34.4) 06/05/17 07:15 Sodium 141 mmol/L (136-145) 06/04/17 16:35 Potassium 4.1 mmol/L (3.5-5.1) 06/04/17 16:35 Chloride 106 mmol/L (98-107) 06/04/17 16:35 Carbon Dioxide 29 mmol/L (21-32) 06/04/17 16:35 Anion Gap 6 (8-16) L 06/04/17 16:35 BUN 27 mg/dL (7-18) H 06/04/17 16:35 Creatinine 1.1 mg/dL (0.7-1.3) D 06/04/17 16:35 Creat Clearance w eGFR > 60 (>60) 06/04/17 16:35 Random Glucose 116 mg/dL (74-106) H D 06/04/17 16:35 Hemoglobin A1c % 5.6 % (4.8-6.0) 06/05/17 07:15 Calcium 9.1 mg/dL (8.5-10.1) 06/04/17 16:35 Phosphorus 3.3 mg/dL (2.5-4.9) D 06/05/17 07:15 Magnesium 2.0 mg/dL (1.8-2.4) 06/05/17 07:15 Total Bilirubin 0.7 mg/dL (0.2-1.0) 06/04/17 16:35 AST 16 U/L (15-37) 06/04/17 16:35 ALT 19 U/L (12-78) 06/04/17 16:35 Alkaline Phosphatase 51 U/L (45-117) 06/04/17 16:35 Creatine Kinase 258 IU/L (39-308) 06/05/17 07:15 Creatine Kinase Index 10.3 % (0.0-5.0) H* 06/05/17 07:15 CK-MB (CK-2) 26.599 ng/mL (0.5-3.6) H 06/05/17 07:15 Troponin I 6.24 ng/ml (0.00-0.05) H* D 06/05/17 07:15 Total Protein 6.3 g/dl (6.4-8.2) L 06/04/17 16:35 Albumin 3.9 g/dl (3.4-5.0) 06/04/17 16:35 Triglycerides 91 mg/dL (35-160) D 06/05/17 07:15 Cholesterol 168 mg/dL (50-200) D 06/05/17 07:15 Total LDL Cholesterol 103 mg/dL (5-100) H D 06/05/17 07:15 HDL Cholesterol 54 mg/dL (40-60) D 06/05/17 07:15 cxr: clear lungs ecgs 06/04/17: sr, nl intervals, no ischemic changes tele: sr est cct 35 mins a/p: 86 m hx htn, hld, copd here with cp. cp, nstemi: -symptoms and rise and fall pattern of trops (+ckmb as well) c/w nstemi -ecgs w/o ischemic findings -no cp currently -cont asa, brilinta, hep gtt -monitor on tele -check echo -case d/w interventionalist and plan for cath tomorrow at [facility]. pt has shellfish allergy so will premedicate with prednisone 40 po tonight and again in AM -cont statin. no bb 2/2 resting bradycardia. htn: -stable off meds, monitor hld: -cont statin copd: -stable at present
--- NOTE | 2017-06-05 11:37 | EKG ---
Test Reason : Blood Pressure : / mmHG Vent. Rate : 079 BPM Atrial Rate : 079 BPM P-R Int : 170 ms QRS Dur : 098 ms QT Int : 392 ms P-R-T Axes : 072 -51 065 degrees QTc Int : 449 ms NORMAL SINUS RHYTHM LEFT AXIS DEVIATION NONSPECIFIC ST ABNORMALITY ABNORMAL ECG WHEN COMPARED WITH ECG OF 04-JUN-2017 15:38, QRS AXIS SHIFTED LEFT Confirmed by SEPIDEH OATES, CAYLA ([id number]) on 06/05/2017 11:37:12 AM Referred By: Confirmed By:CAYLA BUNN MD
--- NOTE | 2017-06-05 11:37 | EKG ---
Test Reason : Blood Pressure : / mmHG Vent. Rate : 066 BPM Atrial Rate : 066 BPM P-R Int : 166 ms QRS Dur : 100 ms QT Int : 418 ms P-R-T Axes : 043 -15 062 degrees QTc Int : 438 ms NORMAL SINUS RHYTHM NORMAL ECG WHEN COMPARED WITH ECG OF 18-MAR-2017 20:41, CRITERIA FOR SEPTAL INFARCT ARE NO LONGER PRESENT Confirmed by CAYLA BUNN MD ([id number]) on 06/05/2017 11:37:07 AM Referred By: Confirmed By:CAYLA BUNN MD
[2017-06-05] MEDS: ASPIRIN 81 MG CHEWABLE TABLETS PO SCH (11:46)
[2017-06-05] MEDS: TICAGRELOR 90 MG TABLET PO SCH ×2 (11:46→23:33)
[2017-06-05] MEDS: BUDESONIDE/FORMETEROL FUMARATE 160/4.5 mcg INHALER IH SCH ×2 (11:46→22:40)
[2017-06-05] MEDS: TIOTROPIUM BROMIDE 18 MCG/INH (DEVICE W/ 5 CAPSULES) IH SCH (11:46)
[2017-06-05 12:24] VITALS: BMI 24.9
[2017-06-05] MEDS ORDERED: PT OWN MED DRAWER 7, Y5N ONE (12:35)
--- NOTE | 2017-06-05 12:42 | EKG ---
Test Reason : Blood Pressure : / mmHG Vent. Rate : 050 BPM Atrial Rate : 050 BPM P-R Int : 170 ms QRS Dur : 094 ms QT Int : 464 ms P-R-T Axes : 050 -02 071 degrees QTc Int : 423 ms SINUS BRADYCARDIA OTHERWISE NORMAL ECG WHEN COMPARED WITH ECG OF 04-JUN-2017 21:05, VENT. RATE HAS DECREASED BY 29 BPM QRS AXIS SHIFTED RIGHT Confirmed by SEPIDEH OATES, CAYLA ([id number]) on 06/05/2017 12:41:52 PM Referred By: Confirmed By:CAYLA BUNN MD
--- NOTE | 2017-06-05 13:34 | CON.PULM ---
Consult Consult Specialty:: PULMONARY Referred by:: PRADIP Reason for Consultation:: COPD - History of Present Illness Chief Complaint: CHEST PAIN History of Present Illness: 86 WHITE MALE WITH H/O COPD ON HOME O2 PRESENTS WITH LEFT ANTERIOR BURNING TYPE CHEST PAIN AFTER LIFTING WEIGHTS AT HOME. HE WAS RELATIVELY STABLE PRIOR TO THIS EPISODE AFTER BEING DISCHARGED FROM HOSPITAL LAST MONTH WITH EXACERBATION COPD. - History Source History Provided By: Patient, Family Member, Medical Record Limitations to Obtaining History: No Limitations - Past Medical History PSYCHOLOGICAL ASSISTANT: No: Alzheimer's Cardio/Vascular: Yes: HTN, Hyperlipdemia. No: AFIB Pulmonary: Yes: COPD, O2 Dependent, Pneumonia. No: Previously Intubated Gastrointestinal: Yes: Constipation Renal/: Yes: BPH Psych: Yes: Anxiety Musculoskeletal: Yes: Osteoarthritis ENT: Yes: Sinusitis - Past Surgical History Past Surgical History: Yes: Cataract Removal (bilateral) - Alcohol/Substance Use Hx Alcohol Use: No History of Substance Use: reports: None - Smoking History Smoking history: Former smoker Have you smoked in the past 12 months: No Aproximately how many cigarettes per day: 0 If you are a former smoker, when did you quit?: 1984 - Social History Usual Living Arrangement: With Spouse ADL: Independent Occupation: retired Place of : [facility] History of Recent Travel: No Home Medications - Allergies Allergies/Adverse Reactions: Allergies Allergy/AdvReac Type Severity Reaction Status Date / Time No Known Drug Allergies Allergy Verified 06/04/17 15:39 shrimp Allergy Unknown lip Uncoded 06/04/17 15:39 swelling - Home Medications Home Medications: Ambulatory Orders Tiotropium [place] [Spiriva] 18 mcg IH DAILY 06/23/11 Budesonide/Formeterol Fumarate [SYMBICORT 160/4.5mcg -] 1 inh PO DAILY 06/04/17 Family Disease History - Family Disease History Family Disease History: Respiratory: Father, Other: Mother (sinus issues) Review of Systems - Review of Systems Constitutional: denies: Chills Eyes: denies: Blind Spots HENT: denies: Difficult Swallowing Neck: denies: Decreased ROM Cardiovascular: reports: Shortness of Breath Respiratory: reports: Exercise Intolerance, SOB on Exertion. denies: Cough, Hemoptysis, Wheezing Gastrointestinal: reports: No Symptoms Genitourinary: reports: No Symptoms Breasts: reports: No Symptoms Reported Musculoskeletal: reports: No Symptoms Integumentary: reports: No Symptoms Neurological: reports: No Symptoms Physical Exam Vital Sings: Vital Signs Temperature 97.6 F 06/05/17 12:05 Pulse Rate 72 06/05/17 12:05 Respiratory Rate 18 06/05/17 12:05 Blood Pressure 144/80 06/05/17 12:05 O2 Sat by Pulse Oximetry (%) 97 06/05/17 12:05 Constitutional: Yes: Calm Eyes: Yes: EOM Intact HENT: Yes: Normocephalic Neck: Yes: Trachea Midline Cardiovascular: Yes: Regular Rate and Rhythm, S1, S2 Respiratory: Yes: Diminished Gastrointestinal: Yes: Normal Bowel Sounds, Soft Renal/: Yes: WNL Breast(s): Yes: WNL Musculoskeletal: Yes: WNL Extremities: Yes: WNL Edema: No Integumentary: Yes: WNL Neurological: Yes: WNL ...Motor Strength: WNL Psychiatric: Yes: WNL Labs: CBC, BMP 06/05/17 07:15 06/04/17 16:35 TROP . Imaging - Results Chest X-ray: Report Reviewed, Image Reviewed Cat Scan: Report Reviewed, Image Reviewed Problem List - Problems (1) NSTEMI (non-ST elevated myocardial infarction) Code(s): I21.4 - NON-ST ELEVATION (NSTEMI) MYOCARDIAL INFARCTION (2) Chest pain Code(s): R07.9 - CHEST PAIN, UNSPECIFIED (3) COPD (chronic obstructive pulmonary disease) Code(s): J44.9 - CHRONIC OBSTRUCTIVE PULMONARY DISEASE, UNSPECIFIED Qualifiers: COPD type: COPD with acute exacerbation Qualified Code(s): J44.1 - Chronic obstructive pulmonary disease with (acute) exacerbation Assessment/Plan NSTEMI COPD STABLE ASHD AGREE WITH TRANSFER TO TERTIARY CARE FOR CATH PREMEDICATED WITH PRED FOR SHELLFISH ALLERGY CONTINUE O2/BRONCHODILATORS Abhijeet ERWIN MD
[2017-06-05] MEDS: ALPRAZolam 0.25 MG TABLET PO PRN (17:05)
[2017-06-05] MEDS: ALBUTEROL SO4 0.083% IH SOL 2.5 MG/3 ML VIAL.NEB. NEB PRN (17:41)
[2017-06-05] MEDS ORDERED: predniSONE 20 MG TABLET (UD) PO ONE (22:00)
[2017-06-05] MEDS: ATORVASTATIN CA 80 MG TABLET (FP) PO SCH (22:24)
[2017-06-06] MEDS: ALPRAZolam 0.25 MG TABLET PO PRN (03:13)
[2017-06-06] MEDS ORDERED: predniSONE 20 MG TABLET (UD) PO ONE (06:00)
[2017-06-06] MEDS: ALBUTEROL SO4 0.083% IH SOL 2.5 MG/3 ML VIAL.NEB. NEB PRN (08:04)
[2017-06-06] MEDS ORDERED: PT OWN MED DRAWER 7, Y5N ONE (08:14)
[2017-06-06] MEDS: ASPIRIN 81 MG CHEWABLE TABLETS PO SCH (08:25)
[2017-06-06] MEDS: BUDESONIDE/FORMETEROL FUMARATE 160/4.5 mcg INHALER IH SCH (08:26)
[2017-06-06] MEDS: TIOTROPIUM BROMIDE 18 MCG/INH (DEVICE W/ 5 CAPSULES) IH SCH (08:26)
[2017-06-06] MEDS: TICAGRELOR 90 MG TABLET PO SCH (08:26)
--- NOTE | 2017-06-06 08:56 | DS ---
Physical Examination Vital Signs: Vital Signs Temperature 98.2 F 06/06/17 05:00 Pulse Rate 72 06/06/17 05:00 Respiratory Rate 20 06/06/17 05:00 Blood Pressure 147/89 06/06/17 05:00 O2 Sat by Pulse Oximetry (%) 97 06/05/17 21:00 Constitutional: Yes: Anxious Eyes: Yes: Conjunctiva Clear Cardiovascular: Yes: Regular Rate and Rhythm Respiratory: Yes: Diminished, On Nasal O2 Gastrointestinal: Yes: Soft Edema: No Neurological: Yes: Alert. No: Oriented Labs: CBC, BMP 06/05/17 07:15 06/04/17 16:35 Discharge Summary Reason For Visit: CHEST PAIN Current Active Problems NSTEMI (non-ST elevated myocardial infarction) (Acute) COPD Anxiety about Illness Hyperlipidemia Procedures: Principal: Serial Troponin and EKG Other Procedures: Cardiac Evaluation and Cardiac Monitoring Hospital Course: Stable vital signs; To [facility] for Cardiac Cath Condition: Stable - Instructions Diet, Activity, Other Instructions: 2Gm Na low cholesterol diet. Transfer [facility] for Cardiac Cath Referrals: Nile Dahl MD [Primary Care Provider] - Everett Orr MD [Staff Physician] - Disposition: TRANSFER ACUTE CARE/OTHER HOSP - Home Medications Comprehensive Discharge Medication List: Ambulatory Orders Tiotropium [place] [Spiriva] 18 mcg IH DAILY 06/23/11 Budesonide/Formeterol Fumarate [SYMBICORT 160/4.5mcg -] 1 inh PO DAILY 06/04/17 Albuterol 0.083% Nebulizer Joy [Ventolin 0.083% Nebulizer Soln -] 1 amp NEB Q6H PRN amp 06/06/17 Alprazolam [Xanax] 0.25 mg PO Q8H PRN tablet MDD 3 06/06/17 Aspirin [ASA -] 81 mg PO DAILY tab.chew 06/06/17 Atorvastatin Ca [Lipitor] 80 mg PO HS tablet 06/06/17 Enoxaparin [Lovenox -] 80 mg SQ Q12H disp.syrin 06/06/17 Ticagrelor [Brilinta -] 90 mg PO BID tablet 06/06/17
[2017-06-06] MEDS: HEPARIN SOD,PORK IN 0.45% NACL 25,000 UNIT/500 ML INFUS.BAG IVPB SCH (09:06)
[2017-06-06 09:15] VITALS: BP 136/76; PULSE 80; TEMP 97.3
--- NOTE | 2017-06-06 09:54 | PN ---
Progress Note (short form) - Note Progress Note: PULMONARY VSS/AFEBRILE NO CHANGE IN EXAM AWAITING TRANSPORTATION FOR CATH AT [facility] COPD STABLE FOR CATH Abhijeet ERWIN MD Problem List - Problems (1) NSTEMI (non-ST elevated myocardial infarction) Code(s): I21.4 - NON-ST ELEVATION (NSTEMI) MYOCARDIAL INFARCTION (2) Chest pain Code(s): R07.9 - CHEST PAIN, UNSPECIFIED (3) COPD (chronic obstructive pulmonary disease) Code(s): J44.9 - CHRONIC OBSTRUCTIVE PULMONARY DISEASE, UNSPECIFIED Qualifiers: COPD type: COPD with acute exacerbation Qualified Code(s): J44.1 - Chronic obstructive pulmonary disease with (acute) exacerbation
--- NOTE | 2017-06-06 10:37 | PN ---
Progress Note (short form) - Note Progress Note: cc: cp, nstemi s: no cp sob palps dizzy ex cigs o: Vital Signs Temp 97.3 F L 06/06/17 09:00 Pulse 80 06/06/17 09:00 Resp 20 06/06/17 09:00 BP 136/76 06/06/17 09:00 Pulse Ox 98 06/06/17 09:00 Intake & Output 06/05/17 06/05/17 06/06/17 11:59 23:59 11:59 Intake Total 460 340 Output Total 600 Balance -140 340 Weight 169 lb Intake: IV 100 240 HEPARIN-1/2NS 25,000 100 240 UNITS/500 25,000 unit In 500 ml @ 1,000 UNITS/HR 20 mls/hr IVPB TITR QUETA Rx#:[id number] Oral 360 100 Output: Urine 600 Void 600 Other: Voiding Method Urinal Urinal Urinal Bowel Movement Yes # Bowel Movements 1 Height 5 ft 9 in Body Mass Index (BMI) 24.9 Weight Measurement Method Stated by Patient nad no jvd rrr s1s2 no mrg cta bl nl eff aaox3 no le e/c/c abd nt nd pos bs no jaundice diaphoresis pos dp pt Current Medications Generic Name Dose Route Start Last Admin Trade Name Freq PRN Reason Stop Dose Admin Albuterol Sulfate 1 amp 06/05/17 16:01 06/06/17 08:04 Ventolin 0.083% Nebulizer Soln - NEB 1 amp Q6H PRN Administration SHORT OF BREATH/WHEEZING Alprazolam 0.25 mg 06/05/17 16:02 06/06/17 03:13 Xanax - PO 0.25 mg Q8H PRN Administration ANXIETY Aspirin 81 mg 06/05/17 10:00 06/06/17 08:25 Asa - PO 81 mg DAILY QUETA Administration Atorvastatin Calcium 80 mg 06/04/17 22:00 06/05/17 22:24 Lipitor - PO 80 mg HS QUETA Administration Budesonide/Formoterol Fumarate 1 puff 06/04/17 22:00 06/06/17 08:26 Symbicort 160/4.5mcg - IH 1 puff BID QUETA Administration Heparin Sodium (Porcine) 1,000 unit 06/05/17 07:00 Heparin - IVPUSH PRN PRN Heparin Heparin Sodium (Porcine) 5,000 unit 06/05/17 07:00 Heparin - IVPUSH PRN PRN Heparin HEPARIN SOD,PORK IN 0.45% NACL 25,000 unit in 500 mls @ 20 mls/hr 06/05/17 08: 18 06/06/17 09:06 Heparin-1/2ns 25,000 Units/500 IVPB 1,000 units/hr TITR QUETA 20 mls/hr Protocol Administration 1,000 UNITS/HR Ticagrelor 90 mg 06/05/17 10:00 06/06/17 08:26 Brilinta - PO 90 mg BID QUETA Administration Tiotropium [place] 1 puff 06/05/17 10:00 06/06/17 08:26 Spiriva - IH 1 puff DAILY QUETA Administration Laboratory Last Values WBC 8.2 K/mm3 (4.0-10.0) D 06/05/17 07:15 RBC 4.70 M/mm3 (4.00-5.60) 06/05/17 07:15 Hgb 14.4 GM/dL (11.7-16.9) 06/05/17 07:15 Hct 42.9 % (35.4-49) 06/05/17 07:15 MCV 91.4 fl (80-96) 06/05/17 07:15 MCH 30.7 pg (25.7-33.7) 06/05/17 07:15 MCHC 33.6 g/dl (32.0-35.9) 06/05/17 07:15 RDW 14.6 % (11.9-15.9) 06/05/17 07:15 Plt Count 191 K/MM3 (134-434) 06/05/17 07:15 MPV 7.3 fl (7.5-11.1) L 06/05/17 07:15 Neutrophils % 67.5 % (42.8-82.8) 06/05/17 07:15 Lymphocytes % 23.0 % (8-40) D 06/05/17 07:15 Monocytes % 7.5 % (3.8-10.2) 06/05/17 07:15 Eosinophils % 1.5 % (0-4.5) D 06/05/17 07:15 Basophils % 0.5 % (0-2.0) 06/05/17 07:15 PT with INR 13.10 SEC (9.98-11.88) H 06/05/17 01:00 INR 1.16 (0.82-1.09) H 06/05/17 01:00 PTT (Actin FS) 75.8 SECONDS (26.9-34.4) H 06/06/17 05:05 Sodium 141 mmol/L (136-145) 06/04/17 16:35 Potassium 4.1 mmol/L (3.5-5.1) 06/04/17 16:35 Chloride 106 mmol/L (98-107) 06/04/17 16:35 Carbon Dioxide 29 mmol/L (21-32) 06/04/17 16:35 Anion Gap 6 (8-16) L 06/04/17 16:35 BUN 27 mg/dL (7-18) H 06/04/17 16:35 Creatinine 1.1 mg/dL (0.7-1.3) D 06/04/17 16:35 Creat Clearance w eGFR > 60 (>60) 06/04/17 16:35 POC Glucometer 136 UNITS (80-120) 06/06/17 06:07 Random Glucose 116 mg/dL (74-106) H D 06/04/17 16:35 Hemoglobin A1c % 5.6 % (4.8-6.0) 06/05/17 07:15 Calcium 9.1 mg/dL (8.5-10.1) 06/04/17 16:35 Phosphorus 3.3 mg/dL (2.5-4.9) D 06/05/17 07:15 Magnesium 2.0 mg/dL (1.8-2.4) 06/05/17 07:15 Total Bilirubin 0.7 mg/dL (0.2-1.0) 06/04/17 16:35 AST 16 U/L (15-37) 06/04/17 16:35 ALT 19 U/L (12-78) 06/04/17 16:35 Alkaline Phosphatase 51 U/L (45-117) 06/04/17 16:35 Creatine Kinase 258 IU/L (39-308) 06/05/17 07:15 Creatine Kinase Index 10.3 % (0.0-5.0) H* 06/05/17 07:15 CK-MB (CK-2) 26.599 ng/mL (0.5-3.6) H 06/05/17 07:15 Troponin I 6.24 ng/ml (0.00-0.05) H* D 06/05/17 07:15 Total Protein 6.3 g/dl (6.4-8.2) L 06/04/17 16:35 Albumin 3.9 g/dl (3.4-5.0) 06/04/17 16:35 Triglycerides 91 mg/dL (35-160) D 06/05/17 07:15 Cholesterol 168 mg/dL (50-200) D 06/05/17 07:15 Total LDL Cholesterol 103 mg/dL (5-100) H D 06/05/17 07:15 HDL Cholesterol 54 mg/dL (40-60) D 06/05/17 07:15 cxr: clear lungs ecgs 06/04/17: sr, nl intervals, no ischemic changes tele: sr echo 05/2017: tds, nondiagnostic quality per report; nl lvef, mild ar a/p: 86 m hx htn, hld, copd here with cp. cp, nstemi: -symptoms and rise and fall pattern of trops (+ckmb as well) c/w nstemi -ecgs w/o ischemic findings -no cp currently -cont asa, brilinta, hep gtt -monitor on tele -echo with nl lvef -case d/w interventionalist and plan for cath today at [facility]. pt has shellfish allergy so was premedicated with prednisone -cont statin. no bb 2/2 resting bradycardia. htn: -stable off meds, monitor hld: -cont statin copd: -stable at present
== END 2017-06-06 10:55 | disposition short-term general hospital (02) | DRG 282 ==
LOC: JER 15:09 → JERBED 19:28 → J4W 06-05 10:28
PROVIDERS: ADMIT Internal Medicine; ATTEND Internal Medicine
DX: I21.4 Non-ST elevation (NSTEMI) myocardial infarction (principal); I10 Essential (primary) hypertension; E78.5 Hyperlipidemia, unspecified; J44.9 Chronic obstructive pulmonary disease, unspecified; R91.1 Solitary pulmonary nodule; N40.0 Benign prostatic hyperplasia without lower urinary tract symptoms; J32.8 Other chronic sinusitis; F41.8 Other specified anxiety disorders; M19.90 Unspecified osteoarthritis, unspecified site; K59.09 Other constipation; D72.829 Elevated white blood cell count, unspecified; Z99.81 Dependence on supplemental oxygen; Z87.891 Personal history of nicotine dependence
CPT/HCPCS: 36415; 71010-TC; 80053; 80061; 82550; 82553; 83036; 83721; 83735; 84100; 84484; 85025; 85610; 85730; 93005; 93010; 93306-TC; 94640; 99282-25; J1644

== ENCOUNTER 2017-08-20 19:03 | Emergency (ER) | payer OTHER, BC ==
[2017-08-20 19:49] VITALS: BP 122/57; PULSE 73; TEMP 98.2; BMI 28.3
--- NOTE | 2017-08-20 20:25 | PDOC ---
History of Present Illness - History of Present Illness Initial Comments: 08/20/17 20:25 Patient is an 86M, with PMHx of COPD, cardiac stent placement s/p AK (5 weeks ago), HTN, HLD, who was biba from home, for generalized weakness, chills, sob. Patient states that last night he was shaking and had chills, he also experienced weakness in his legs. He states he has experienced similar symptoms before with his pneumonia. He is currently on plavix. He denies nausea, vomiting, chest pain, abdominal pain, dysuria. PCP: [facility] Skip Pit Worker: Dominga Donor Recruiter: Cl <Corin Estrada - Last Filed: 08/20/17 21:55> <Lila Dowd - Last Filed: 08/21/17 00:46> - General Chief Complaint: Respiratory Stated Complaint: SOB Time Seen by Provider: 08/20/17 19:27 Past History <Corin Estrada - Last Filed: 08/20/17 21:55> - Past Medical History Anemia: No Asthma: No Cancer: Yes (Lung Nodule R) Cardiac Disorders: Yes (Chest Pain) CVA: No COPD: Yes CHF: No Dementia: No Diabetes: No GI Disorders: No Disorders: No HTN: Yes Hypercholesterolemia: Yes Liver Disease: No Seizures: No Thyroid Disease: No - Surgical History Abdominal Surgery: No Appendectomy: No Cardiac Surgery: Yes (Cardiac Cath 2014) Cholecystectomy: No Lung Surgery: No Neurologic Surgery: No Orthopedic Surgery: No - Immunization History Immunization Up to Date: Yes - Suicide/Smoking/Psychosocial Hx Smoking Status: Yes Smoking History: Former smoker Have you smoked in the past 12 months: No Number of Cigarettes Smoked Daily: 0 If you are a former smoker, when did you quit?: 40yrs ago Information on smoking cessation initiated: No Hx Alcohol Use: No Drug/Substance Use Hx: No Substance Use Type: None Hx Substance Use Treatment: No <Lila Dowd - Last Filed: 08/21/17 00:46> - Past Medical History Allergies/Adverse Reactions: Allergies Allergy/AdvReac Type Severity Reaction Status Date / Time No Known Drug Allergies Allergy Verified 08/20/17 19:50 shrimp Allergy Unknown lip Uncoded 08/20/17 19:50 swelling Respiratory Specific PMHX - Complaint Specific PMHX Pneumonia: Yes <Lila Dowd - Last Filed: 08/21/17 00:46> Review of Systems - Review of Systems Comments:: 08/20/17 20:26 CONSTITUTIONAL: Present: generalized leg weakness, chills Absent: fever, diaphoresis, malaise, loss of appetite HEENT: Absent: rhinorrhea, nasal congestion, throat pain, throat swelling, difficulty swallowing, mouth swelling, ear pain, eye pain, visual changes CARDIOVASCULAR: Absent: chest pain, syncope, palpitations, irregular heart rate, lightheadedness , peripheral edema RESPIRATORY: Present: shortness of breath Absent: cough, dyspnea with exertion, orthopnea, wheezing, stridor, hemoptysis GASTROINTESTINAL: Absent: abdominal pain, abdominal distension, nausea, vomiting, diarrhea, constipation, melena, hematochezia GENITOURINARY: Absent: dysuria, frequency, urgency, hesitancy, hematuria, flank pain, genital pain MUSCULOSKELETAL: Absent: myalgia, arthralgia, joint swelling SKIN: Absent: rash, itching, pallor HEMATOLOGIC/IMMUNOLOGIC: Absent: easy bleeding, easy bruising, lymphadenopathy, frequent infections ENDOCRINE: Absent: unexplained weight gain, unexplained weight loss, heat intolerance, cold intolerance NEUROLOGIC: Absent: headache, focal weakness or paresthesias, dizziness, unsteady gait, seizure, mental status changes, bladder or bowel incontinence <Corin Estrada - Last Filed: 08/20/17 21:55> *Physical Exam - Vital Signs Last Vital Signs Temp Pulse Resp BP Pulse Ox 98.2 F 73 18 122/57 95 08/20/17 19:40 08/20/17 19:40 08/20/17 19:40 08/20/17 19:40 08/20/17 19:40 - Physical Exam Comments: 08/20/17 20:28 GENERAL: Well developed, well nourished. Awake and alert. No acute distress. HEENT: Normocephalic, atraumatic. PERRLA, EOMI. No conjunctival pallor. Sclera are non- icteric. Moist mucous membranes. Oropharynx is clear. NECK: Supple. Full ROM. No JVD. Carotid pulses 2+ and symmetric, without bruits. No thyromegaly. No lymphadenopathy. CARDIOVASCULAR: Regular rate and rhythm. No murmurs, rubs, or gallops. Distal pulses are 2+ and symmetric. PULMONARY: Decreased breath sounds on the left. No wheezing, rales or rhonchi. ABDOMINAL: Soft. Non-tender. Non-distended. No rebound or guarding. No organomegaly. Normoactive bowel sounds. MUSCULOSKELETAL Normal range of motion at all joints. No bony deformities or tenderness. No CVA tenderness. EXTREMITIES: No cyanosis. No clubbing. No edema. No calf tenderness. SKIN: 2 pitting edema b/l. Chronic excoriation and skin discolorations from anticoagulants. Small avulsive right ankle skin wound. Warm and dry. Normal capillary refill. No jaundice. NEUROLOGICAL: Alert, awake, appropriate. Cranial nerves 2-12 intact. No deficits to light touch and temperature in face, upper extremities and lower extremities. No motor deficits in the in face, upper extremities and lower extremities. Normoreflexic in the upper and lower extremities. Normal speech. Toes are down-going bilaterally. Gait is normal without ataxia. <Corin Estrada - Last Filed: 08/20/17 21:55> - Vital Signs Last Vital Signs Temp Pulse Resp BP Pulse Ox 98.2 F 73 18 122/57 95 08/20/17 19:40 08/20/17 19:40 08/20/17 19:40 08/20/17 19:40 08/20/17 19:40 <Lila Dowd - Last Filed: 08/21/17 00:46> ED Treatment Course - LABORATORY CBC & Chemistry Diagram: 08/20/17 20:35 08/20/17 20:35 - RADIOLOGY Radiograph Interpretation: 08/20/17 21:55 Chest x-ray Impression: COPD, no acute disease. Reported by: Juan Christianson MD [id number] <Corin Estrada - Last Filed: 08/20/17 21:55> - LABORATORY CBC & Chemistry Diagram: 08/20/17 20:35 08/20/17 20:35 - RADIOLOGY Radiology Studies Ordered: Category Date Time Status CHEST X-RAY PORTABLE* [RAD] Stat Radiology 08/20/17 19:47 Taken <Lila Dowd - Last Filed: 08/21/17 00:46> *DC/Admit/Observation/Transfer - Attestations Scribe Attestion: 02/27/18 20:29 Documentation prepared by Corin Estrada, acting as medical territory manager for Lila Dowd MD. <Corin Estrada - Last Filed: 08/20/17 21:55> <Lila Dowd - Last Filed: 08/21/17 00:46> Diagnosis at time of Disposition: COPD exacerbation UTI (urinary tract infection) Qualifiers: Urinary tract infection type: site unspecified Hematuria presence: without hematuria Qualified Code(s): N39.0 - Urinary tract infection, site not specified - Discharge Dispostion Disposition: HOME Condition at time of disposition: Stable - Patient Instructions Printed Discharge Instructions: DI for Urinary Tract Infection (UTI), DI for Chronic Obstructive Pulmonary Disease Additional Instructions: please take your antibiotics Followup with your primary physician this week Return for any worsening symptoms
[2017-08-20] MEDS ORDERED: ALBUTEROL SO4 2.5/IPRATROPIUM 0.5 INH SOL 3 ML VIAL.NEB. NEB ONE ×2 (20:40→23:07)
[2017-08-20 20:49] LABS: BASO % 0.3 % (0-2.0); EOS % 0.9 % (0-4.5); HEMOGLOBIN 13.7 GM/dL (11.7-16.9); LYMPH % 14.9 % (8-40); MCH 29.9 pg (25.7-33.7); MCHC 33.4 g/dl (32.0-35.9); MEAN CELL VOLUME 89.3 fl (80-96); MEAN PLT VOLUME 7.8 fl (7.5-11.1); MONO % 5.5 % (3.8-10.2); NEUT % 78.4 % (42.8-82.8); PLATELET COUNT 185 K/MM3 (134-434); RBC 4.59 M/mm3 (4.00-5.60); RDW 14.2 % (11.9-15.9); WHITE BLOOD COUNT 9.9 K/mm3 (4.0-10.0)
[2017-08-20 20:52] LABS: VENOUS PC02 42.3 mmHg (38-52); VENOUS PH 7.43 (7.32-7.42); VENOUS PO2 41.6 mmHg (28-48)
[2017-08-20 21:14] LABS: ALBUMIN 3.6 g/dl (3.4-5.0); ANION GAP 6 (8-16); BILIRUBIN,TOTAL 0.6 mg/dL (0.2-1.0); BLOOD UREA NITROGEN 25 mg/dL (7-18); CALCIUM 8.6 mg/dL (8.5-10.1); CHLORIDE 108 mmol/L (98-107); CO2 29 mmol/L (21-32); CREATININE 0.9 mg/dL (0.7-1.3); GLUCOSE,RANDOM 127 mg/dL (74-106); SGPT/ALT 22 U/L (12-78); SODIUM 143 mmol/L (136-145); TOT PROT 5.8 g/dl (6.4-8.2)
[2017-08-20 21:16] LABS: ALK PHOS 56 U/L (45-117)
[2017-08-20 21:20] LABS: INR 1.15 (0.82-1.09); POTASSIUM 3.7 mmol/L (3.5-5.1)
[2017-08-20 21:21] LABS: SGOT/AST 22 U/L (15-37)
[2017-08-20 21:23] LABS: ACTIVATED PTT 27.2 SECONDS (26.9-34.4)
[2017-08-20 23:15] LABS: URINE APPEARANCE SLCLOUDY; URINE BILIRUBIN NEGATIVE (NEGATIVE); URINE BLOOD 1+ (NEGATIVE); URINE COLOR AMBER; URINE GLUCOSE (UA) NEGATIVE (NEGATIVE); URINE KETONE TRACE (NEGATIVE); URINE NITRITE NEGATIVE (NEGATIVE); URINE PROTEIN NEGATIVE (NEGATIVE); URINE UROBILINOGEN NEGATIVE mg/dL (0.2-1.0)
[2017-08-20 23:18] LABS: URINE LEUK ESTERASE 3+ (NEGATIVE)
[2017-08-20 23:19] LABS: EPI CELLS RARE /HPF (FEW); URINE BACTERIA RARE /hpf (NONE SEEN); URINE MUCUS MODERATE
--- NOTE | 2017-08-21 10:34 | EKG ---
Test Reason : Blood Pressure : / mmHG Vent. Rate : 070 BPM Atrial Rate : 070 BPM P-R Int : 156 ms QRS Dur : 100 ms QT Int : 428 ms P-R-T Axes : 042 -40 051 degrees QTc Int : 462 ms NORMAL SINUS RHYTHM LEFT AXIS DEVIATION ABNORMAL ECG WHEN COMPARED WITH ECG OF 05-JUN-2017 02:30, NO SIGNIFICANT CHANGE WAS FOUND Confirmed by CAYLA BUNN MD ([id number]) on 08/21/2017 10:34:13 AM Referred By: Confirmed By:CAYLA BUNN MD
== END 2017-08-21 00:59 | disposition home or self-care (01) ==
LOC: JER 19:03
DX: J44.1 Chronic obstructive pulmonary disease with (acute) exacerbation (principal); N39.0 Urinary tract infection, site not specified; Z87.891 Personal history of nicotine dependence; I25.10 Atherosclerotic heart disease of native coronary artery without angina pectoris; Z98.61 Coronary angioplasty status; I10 Essential (primary) hypertension; E78.00 Pure hypercholesterolemia, unspecified; J44.9 Chronic obstructive pulmonary disease, unspecified
CPT/HCPCS: 36415; 71045-TC-FY; 80053; 81003; 81015; 82550; 82803; 83605; 83880; 84484; 85025; 85610; 85730; 86850; 86900; 86901; 87040; 93005; 93010; 99282-25

== ENCOUNTER 2017-09-02 19:40 | Inpatient (IN) | payer OTHER, BC ==
--- NOTE | 2017-09-02 19:56 | PDOC ---
Rapid Medical Evaluation Time Seen by Provider: 09/02/17 19:52 Medical Evaluation: Allergies Allergy/AdvReac Type Severity Reaction Status Date / Time No Known Drug Allergies Allergy Verified 08/20/17 19:50 shrimp Allergy Unknown lip Uncoded 08/20/17 19:50 swelling 09/02/17 19:52 I have performed a brief in-person evaluation of the patient. The patient presents with chief complaint of: chest heaviness, shortness of breath and nose bleed today. Patient states taking plavix, mi with stent placement 2 months ago Denies dizziness, but feeling shaky and lightheaded Pertinent physical exam findings are: appears anxious HEENt: left nare with dry blood lungs clear bilaterally non tender chest no pedal edema I have ordered the following: ekg, labs, chest xray The patient will proceed to the ED for further evaluation. Discharge Disposition - Referrals Referrals: Nile Dahl MD [Primary Care Provider] - - Patient Instructions - Post Discharge Activity
--- NOTE | 2017-09-02 20:16 | PDOC ---
History of Present Illness - General History Source: Patient Exam Limitations: No Limitations - History of Present Illness Initial Comments: 09/02/17 20:48 The patient is a 86 year old male with a significant PMH of emphysema, DE s/p stent placement, HTN, HLD, on plavix who presents to the emergency department with worsening productive cough for the past few days and chest pain with associated SOB today. The patient reports sudden onset of chest pain that began around lunch time today. The patient now describes the chest pain as dull and intermittent 'chest heaviness.' The patient also endorses shakiness of his hands , subjective fever, flushing of the face, and bloody nose. The patient expresses concern as he had an DE and pneumonia in the past. The patient notes he took aspirin today. Patient denies sick contacts or recent travel. The patient denies headache and dizziness. Denies chills, nausea, vomit, diarrhea and constipation. Denies dysuria, frequency, urgency and hematuria. Allergies: shrimp Past surgical history: None reported. Social history: Former smoker (smoked for 35 years ). Social drinker. No illicit drug use. PCP: Dr. Dahl Bias Cutting Machine Operator: Dr. Orr Head Waitress: Dr. Smallwood <Dariela Nielsen - Last Filed: 09/02/17 21:00> <Freda Bui - Last Filed: 09/02/17 23:51> - General Chief Complaint: Chest Pain Stated Complaint: CHEST PAIN Time Seen by Provider: 09/02/17 19:52 Past History <Dariela Nielsen - Last Filed: 09/02/17 21:00> - Past Medical History Anemia: No Asthma: No Cancer: Yes (Lung Nodule R) Cardiac Disorders: Yes (Chest Pain) CVA: No COPD: Yes CHF: No Dementia: No Diabetes: No GI Disorders: No Disorders: No HTN: Yes Hypercholesterolemia: Yes Liver Disease: No Seizures: No Thyroid Disease: No - Surgical History Abdominal Surgery: No Appendectomy: No Cardiac Surgery: Yes (Cardiac Cath 2014, stents 2018) Cholecystectomy: No Lung Surgery: No Neurologic Surgery: No Orthopedic Surgery: No - Immunization History Immunization Up to Date: Yes - Suicide/Smoking/Psychosocial Hx Smoking Status: Yes Smoking History: Former smoker Have you smoked in the past 12 months: No Number of Cigarettes Smoked Daily: 0 If you are a former smoker, when did you quit?: many years ago Information on smoking cessation initiated: No Hx Alcohol Use: No Drug/Substance Use Hx: No Substance Use Type: None Hx Substance Use Treatment: No <Freda Bui - Last Filed: 09/02/17 23:51> - Past Medical History Allergies/Adverse Reactions: Allergies Allergy/AdvReac Type Severity Reaction Status Date / Time No Known Drug Allergies Allergy Verified 09/02/17 19:52 shrimp Allergy Unknown lip Uncoded 09/02/17 19:52 swelling Home Medications: Ambulatory Orders levoFLOXacin [Levaquin -] 500 mg PO DAILY #7 tablet 08/21/17 Review of Systems - Review of Systems Able to Perform ROS?: Yes Comments:: 09/02/17 20:54 GENERAL/CONSTITUTIONAL: (+) Subjective fever. (+) Flushing of the face. No chills. No weakness. HEAD, EYES, EARS, NOSE AND THROAT: No change in vision. No ear pain or discharge. No sore throat. CARDIOVASCULAR: (+) Chest pain. (+) SOB. RESPIRATORY: (+) Cough. (+) Epistaxis. No wheezing, or hemoptysis. GASTROINTESTINAL: No nausea, vomiting, diarrhea or constipation. GENITOURINARY: No dysuria, frequency, or change in urination. MUSCULOSKELETAL: No joint or muscle swelling or pain. No neck or back pain. SKIN: No rash NEUROLOGIC: No headache, vertigo, loss of consciousness, or change in strength/ sensation. ENDOCRINE: No increased thirst. No abnormal weight change. HEMATOLOGIC/LYMPHATIC: No anemia, easy bleeding, or history of blood clots. ALLERGIC/IMMUNOLOGIC: No hives or skin allergy. <Dariela Nielsen - Last Filed: 09/02/17 21:00> *Physical Exam - Vital Signs Last Vital Signs Temp Pulse Resp BP Pulse Ox 99.5 F 104 H 20 127/69 92 L 09/02/17 19:53 09/02/17 19:53 09/02/17 19:53 09/02/17 19:53 09/02/17 19:53 - Physical Exam Comments: 09/02/17 20:56 GENERAL: Awake, alert, and fully oriented, in no acute distress HEAD: No signs of trauma EYES: PERRLA, EOMI, sclera anicteric, conjunctiva clear ENT: Auricles normal inspection, hearing grossly normal, nares patent, oropharynx clear without exudates. Moist mucosa NECK: Normal ROM, supple, no lymphadenopathy, JVD, or masses LUNGS: Breath sounds equal, clear to auscultation bilaterally. No wheezes, and no crackles HEART: Regular rate and rhythm, normal S1 and S2, no murmurs, rubs or gallops ABDOMEN: Soft, nontender, normoactive bowel sounds. No guarding, no rebound. No masses EXTREMITIES: (+) Bruising on the bilateral lower extremities. Normal range of motion, no edema. No clubbing or cyanosis. No cords, erythema, or tenderness NEUROLOGICAL: Cranial nerves II through XII grossly intact. Normal speech, normal gait SKIN: Warm, Dry, normal turgor. <Dariela Nielsen - Last Filed: 09/02/17 21:00> - Vital Signs Last Vital Signs Temp Pulse Resp BP Pulse Ox 99.5 F 104 H 20 127/69 92 L 09/02/17 19:53 09/02/17 19:53 09/02/17 19:53 09/02/17 19:53 09/02/17 19:53 <Freda Bui - Last Filed: 09/02/17 23:51> Heart Score/ECG Review - History History: Moderately suspicious - Electrocardiogram EKG: Normal - Age Age: >/= 65 - Risk Factors Risk Factors Heart Score: Yes Hx Hypertension, Yes Smoking History Based on the list above the patient has:: 1-2 risk factors - Troponin Troponin: </= normal limit - Score Heart Score - Total: 4 <Freda Bui - Last Filed: 09/02/17 23:51> ED Treatment Course - LABORATORY CBC & Chemistry Diagram: 09/02/17 21:45 09/02/17 21:45 <Freda Bui - Last Filed: 09/02/17 23:51> Medical Decision Making - Medical Decision Making 09/02/17 21:55 Pt presents to the ED complaining of chest pain and shortness of breath that have been intermittent for several days but were persistent for several hours today. Patient has a history of COPD and also an DE with stent placement. Patient is currently chest pain free and EKG shows no evidence of ischemia, but HEART score is at least 4. Will check labs, likely admit to observation for rule out DE if labs are negative. <Freda Bui - Last Filed: 09/02/17 23:51> *DC/Admit/Observation/Transfer - Attestations Scribe Attestion: 09/02/17 20:56 Documentation prepared by Dariela Nielsen, acting as medical collections representative for Freda Bui MD. <Dariela Nielsen - Last Filed: 09/02/17 21:00> - Discharge Dispostion Admit: Yes <Freda Bui - Last Filed: 09/02/17 23:51> Diagnosis at time of Disposition: Chest pain Qualifiers: Chest pain type: unspecified Qualified Code(s): R07.9 - Chest pain, unspecified - Discharge Dispostion Condition at time of disposition: Good - Referrals Referrals: Nile Dahl MD [Primary Care Provider] - - Patient Instructions - Post Discharge Activity
[2017-09-02 21:55] LABS: BASO % 0.5 % (0-2.0); EOS % 0.6 % (0-4.5); HEMATOCRIT 43.3 % (35.4-49); HEMOGLOBIN 14.4 GM/dL (11.7-16.9); MCH 29.8 pg (25.7-33.7); MCHC 33.4 g/dl (32.0-35.9); MEAN CELL VOLUME 89.2 fl (80-96); MEAN PLT VOLUME 7.8 fl (7.5-11.1); MONO % 7.2 % (3.8-10.2); NEUT % 77.7 % (42.8-82.8); PLATELET COUNT 195 K/MM3 (134-434); RBC 4.85 M/mm3 (4.00-5.60); WHITE BLOOD COUNT 11.3 K/mm3 (4.0-10.0)
[2017-09-02 22:12] LABS: INR 1.12 (0.82-1.09); PROTHROMBIN TIME (PATIENT) 12.6 SEC (9.98-11.88)
[2017-09-02 22:15] LABS: ACTIVATED PTT 29.3 SECONDS (26.9-34.4)
[2017-09-02 22:49] LABS: ALBUMIN 3.7 g/dl (3.4-5.0); ANION GAP 10 (8-16); BILIRUBIN,TOTAL 0.4 mg/dL (0.2-1.0); BLOOD UREA NITROGEN 27 mg/dL (7-18); CALCIUM 8.2 mg/dL (8.5-10.1); CHLORIDE 110 mmol/L (98-107); CO2 24 mmol/L (21-32); CREATININE 0.9 mg/dL (0.7-1.3); GLUCOSE,RANDOM 89 mg/dL (74-106); SGPT/ALT 18 U/L (12-78); SODIUM 144 mmol/L (136-145); TOT PROT 6.2 g/dl (6.4-8.2)
[2017-09-02 22:52] LABS: ALK PHOS 54 U/L (45-117)
[2017-09-02 23:18] LABS: POTASSIUM 3.5 mmol/L (3.5-5.1); SGOT/AST 23 U/L (15-37)
[2017-09-03] MEDS ORDERED: ALBUTEROL SO4 2.5/IPRATROPIUM 0.5 INH SOL 3 ML VIAL.NEB. NEB ONE (00:55)
--- NOTE | 2017-09-03 01:17 | HP ---
CHIEF COMPLAINT: chest pressure PCP: Hesahm, Cardio: Dominga, Pulm: Cl HISTORY OF PRESENT ILLNESS: This is an 86 year old male with a significant past medical history of COPD on home oxygen, DE s/p stent 05/2017 who presented to the ED with a several day history of productive cough, clear phlegm. Today the patient developed chest pressure and associated SOB around 11am. Upon exam, pt reports the pressure has resolved and he is feeling better. ER course was notable for: (1) Trop neg x 1 (2) CXR with no acute changes (3) Recent Travel: pt denies PAST MEDICAL HISTORY: HTN, HLD, DE 05/2017 s/p stent x 1, COPD, R lung nodule, PNA, anxiety PAST SURGICAL HISTORY: cardiac stent x 1 05/2017 B/L cataract surgery Social History: Smoking: pt quit 1992, previous 2ppd smoker Alcohol: occ, socially Drugs: pt denies Family History: mother age 85, parkinsons disease father age 77, prostate CA one brother age 85, alive with "minor heart troubles recently" one brother age 77, alive and well Allergies No Known Drug Allergies Allergy (Verified 09/02/17 19:52) shrimp Allergy (Unknown, Uncoded 09/02/17 19:52) lip swelling HOME MEDICATIONS: 3 Medication Instructions plavix 75 mg PO DAILY aspirin 81 mg po daily lipitor 40 mg po HS symbicort 80/4.5 2 puff bid lexapro 10mg po daily spiriva daily pt is unclear of home medications, he believes he takes the above, took medication list home REVIEW OF SYSTEMS CONSTITUTIONAL: Absent: fever, chills, diaphoresis, generalized weakness, malaise, loss of appetite, weight change HEENT: Absent: rhinorrhea, nasal congestion, throat pain, throat swelling, difficulty swallowing, mouth swelling, ear pain, eye pain, visual changes CARDIOVASCULAR: Present: chest pain Absent: syncope, palpitations, irregular heart rate, lightheadedness, peripheral edema RESPIRATORY: Present: cough, shortness of breath Absent: dyspnea with exertion, orthopnea, wheezing, stridor, hemoptysis GASTROINTESTINAL: Absent: abdominal pain, abdominal distension, nausea, vomiting, diarrhea, constipation, melena, hematochezia GENITOURINARY: Absent: dysuria, frequency, urgency, hesitancy, hematuria, flank pain, genital pain MUSCULOSKELETAL: Absent: myalgia, arthralgia, joint swelling, back pain, neck pain SKIN: Absent: rash, itching, pallor HEMATOLOGIC/IMMUNOLOGIC: Absent: easy bleeding, easy bruising, lymphadenopathy, frequent infections ENDOCRINE: Absent: unexplained weight gain, unexplained weight loss, heat intolerance, cold intolerance NEUROLOGIC: Absent: headache, focal weakness or paresthesias, dizziness, unsteady gait, seizure, mental status changes, bladder or bowel incontinence PSYCHIATRIC: Absent: anxiety, depression, suicidal or homicidal ideation, hallucinations. PHYSICAL EXAMINATION Vital Signs - 24 hr 3 09/02/17 19:53 Temperature 99.5 F Pulse Rate 104 H Respiratory 20 Rate Blood Pressure 127/69 O2 Sat by Pulse 92 L Oximetry (%) GENERAL: Awake, alert, and fully oriented, in no acute distress. HEAD: Normal with no signs of trauma. EYES: Pupils equal, round and reactive to light, extraocular movements intact, sclera anicteric, conjunctiva clear. No lid lag. EARS, NOSE, THROAT: Ears normal, nares patent, oropharynx clear without exudates. Moist mucous membranes. NECK: Normal range of motion, supple without lymphadenopathy, JVD, or masses. LUNGS: Breath sounds equal, scattered mild expiratory wheezes, no crackles. No accessory muscle use. HEART: Regular rate and rhythm, normal S1 and S2 without murmur, rub or gallop. ABDOMEN: Soft, nontender, not distended, normoactive bowel sounds, no guarding, no rebound, no masses. No hepatomegaly or splenomegaly. MUSCULOSKELETAL: Normal range of motion at all joints. No bony deformities or tenderness. No CVA tenderness. UPPER EXTREMITIES: 2+ pulses, warm, well-perfused. No cyanosis. No clubbing. No peripheral edema. LOWER EXTREMITIES: 2+ pulses, warm, well-perfused. No calf tenderness. No peripheral edema. NEUROLOGICAL: Cranial nerves II-XII intact. Normal speech. Normal gait. PSYCHIATRIC: Cooperative. Good eye contact. Appropriate mood and affect. SKIN: Warm, dry, normal turgor, no rashes or lesions noted, normal capillary refill. Laboratory Results - last 24 hr 3 09/02/17 09/02/17 09/02/17 21:45 21:45 21:45 WBC 11.3 H RBC 4.85 Hgb 14.4 Hct 43.3 MCV 89.2 MCH 29.8 MCHC 33.4 RDW 14.0 Plt Count 195 MPV 7.8 Neutrophils % 77.7 Lymphocytes % 14.0 Monocytes % 7.2 Eosinophils % 0.6 Basophils % 0.5 PT with INR 12.60 H INR 1.12 PTT (Actin FS) 29.3 Sodium 144 Potassium 3.5 Chloride 110 H Carbon Dioxide 24 Anion Gap 10 BUN 27 H Creatinine 0.9 Creat Clearance w eGFR > 60 Random Glucose 89 D Calcium 8.2 L Total Bilirubin 0.4 D AST 23 ALT 18 Alkaline Phosphatase 54 Creatine Kinase 158 Creatine Kinase Index 1.4 CK-MB (CK-2) 2.335 Troponin I < 0.02 Total Protein 6.2 L Albumin 3.7 ECG normal sinus rhythm vent rate 88, QTC [address]/T wave changes Radiology Reports CXR official read pending, no obvious acute changes noted ASSESSMENT/PLAN: 86yM with PMH HTN, HLD, DE 05/2017 s/p stent x 1, COPD, R lung nodule, PNA, anxiety presented to the ED with a several day history of cough and episode of chest pressure and SOB today. Chest pain - given recent DE and stent placement will admit for telemetry observation - trend troponins - cont plavix and ASA - cardiology consult COPD - mild exacerbation - was seen in ED on 08/21 and prescribed 7 day course of levaquin, will hold on further antibiotic use - duonebs QID - albuterol neb PRN - cont home spiriva and symbicort, pt does not recall taking any pills for COPD, will hold off on daliresp for now (on previous med lists) - pulmonary consult CAD/HTN/HLD - pt unsure of meds, PCP to clarify in am with office records or - cont plavix and ASA anxiety - cont home lexapro DVT PPX - defer at present, start heparin therapy if LOS >48h FEN - defer IVF, appears well hydrated - BMP in am - low sodium diet Dispo: pt admitted for further observation. Visit type - Emergency Visit Emergency Visit: Yes ED Registration Date: 09/02/17 Care time: The patient presented to the Emergency Department on the above date and was hospitalized for further evaluation of their emergent condition. - New Patient This patient is new to me today: Yes Date on this admission: 09/03/17 - Critical Care Critical Care patient: No Hospitalist Screening - Colonoscopy Questionnaire Colonoscopy Questionnaire: Colonoscopy Questionnaire - Patient: 50 - 75 years old and never had a screening colonoscopy: No History of colon or rectal polyps, or CA: No History of IBD, Crohn's disease or UC: No History of abdominal radiation therapy as a child: No - Relative: 1 with colon or rectal CA, or polyps at age 60 or younger: No Colon or rectal CA diagnosed at age 45 or younger: No Multiple relatives with colon or rectal CA: No - Outcome: Screening Result: Negative Screen
[2017-09-03 03:35] VITALS: BMI 27.1
[2017-09-03] MEDS: ALBUTEROL SO4 2.5/IPRATROPIUM 0.5 INH SOL 3 ML VIAL.NEB. NEB SCH ×2 (09:00→12:48)
[2017-09-03] MEDS ORDERED: PT OWN MED DRAWER 7, Y5N ONE (09:03)
[2017-09-03] MEDS: TIOTROPIUM BROMIDE 18 MCG/INH (DEVICE W/ 5 CAPSULES) IH SCH (09:45)
[2017-09-03] MEDS: ASPIRIN COATED 81 MG TABLET.EC PO SCH (09:45)
[2017-09-03] MEDS: ESCITALOPRAM OXALATE 10 MG TABLET (FP) PO SCH (09:45)
[2017-09-03] MEDS: CLOPIDOGREL BISULFATE 75 MG TABLET (FP) PO SCH (09:45)
[2017-09-03] MEDS: BUDESONIDE/FORMETEROL FUMARATE 80/4.5 mcg INHALER IH SCH ×2 (09:45→22:02)
[2017-09-03 10:13] LABS: BASO % 0.6 % (0-2.0); EOS % 1.3 % (0-4.5); HEMATOCRIT 41.2 % (35.4-49); HEMOGLOBIN 13.9 GM/dL (11.7-16.9); LYMPH % 20.7 % (8-40); MCH 30.3 pg (25.7-33.7); MCHC 33.8 g/dl (32.0-35.9); MEAN CELL VOLUME 89.7 fl (80-96); MEAN PLT VOLUME 7.5 fl (7.5-11.1); NEUT % 70.4 % (42.8-82.8); PLATELET COUNT 183 K/MM3 (134-434); RBC 4.59 M/mm3 (4.00-5.60); RDW 14.2 % (11.9-15.9); WHITE BLOOD COUNT 9.5 K/mm3 (4.0-10.0)
[2017-09-03 10:34] LABS: ANION GAP 9 (8-16); BLOOD UREA NITROGEN 25 mg/dL (7-18); CALCIUM 9.1 mg/dL (8.5-10.1); CHLORIDE 106 mmol/L (98-107); CO2 29 mmol/L (21-32); CREATININE 0.8 mg/dL (0.7-1.3); GLUCOSE,RANDOM 81 mg/dL (74-106); POTASSIUM 3.4 mmol/L (3.5-5.1); SODIUM 144 mmol/L (136-145)
--- NOTE | 2017-09-03 10:35 | PN ---
Progress Note, Physician Chief Complaint: Pt lying in bed in no acute distress. Denies any chest discomfort, n/v/d, sob, or weakness. He reports he is feeling well. - Current Medication List Current Medications: Active Medications Albuterol Sulfate (Ventolin 0.083% Nebulizer Soln -) 1 amp NEB Q4H PRN PRN Reason: SHORT OF BREATH/WHEEZING Albuterol/Ipratropium (Duoneb -) 1 amp NEB RQID [facility] Last Admin: 09/03/17 09:00 Dose: 1 amp Aspirin (Ecotrin -) 81 mg PO DAILY [facility] Last Admin: 09/03/17 09:45 Dose: 81 mg Atorvastatin Calcium (Lipitor -) 40 mg PO [facility] Budesonide/Formoterol Fumarate (Symbicort 80/4.5mcg -) 2 puff IH BID [facility] Last Admin: 09/03/17 09:45 Dose: 2 puff Clopidogrel Bisulfate (Plavix -) 75 mg PO DAILY [facility] Last Admin: 09/03/17 09:45 Dose: 75 mg Escitalopram Oxalate (Lexapro -) 10 mg PO DAILY [facility] Last Admin: 09/03/17 09:45 Dose: 10 mg Tiotropium [place] (Spiriva -) 1 puff IH DAILY [facility] Last Admin: 09/03/17 09:45 Dose: 1 puff - Objective Vital Signs: Vital Signs Temperature 98.1 F 09/03/17 07:54 Pulse Rate 65 09/03/17 07:54 Respiratory Rate 18 09/03/17 07:54 Blood Pressure 135/70 09/03/17 07:54 O2 Sat by Pulse Oximetry (%) 94 L 09/03/17 01:50 Constitutional: Yes: Well Nourished, No Distress Cardiovascular: Yes: WNL, Regular Rate and Rhythm. No: Bruit, Gallop, Rub Respiratory: Yes: Poor Air Entry, Rhonchi Gastrointestinal: Yes: WNL, Normal Bowel Sounds, Soft. No: Distention, Tenderness Genitourinary: Yes: WNL Edema: No Neurological: Yes: WNL, Alert, Oriented Psychiatric: Yes: WNL, Alert, Oriented Labs: CBC, BMP 09/03/17 09:40 INR, PTT INR 1.12 (0.82-1.09) 09/02/17 21:45 Problem List - Problems (1) COPD exacerbation Assessment/Plan: acute on chronic continue spiriva/symbicort levofloxacin iv steroids pulm following Code(s): J44.1 - CHRONIC OBSTRUCTIVE PULMONARY DISEASE W (ACUTE) EXACERBATION (2) Chest pain Assessment/Plan: trop x2 neg, currently denies chest discomfort/pain ekg without changes echo reviewed continue tele cardiology following will monitor Code(s): R07.9 - CHEST PAIN, UNSPECIFIED Qualifiers: Chest pain type: unspecified Qualified Code(s): R07.9 - Chest pain, unspecified (3) Hyperlipidemia Assessment/Plan: stable continue lipitor Code(s): E78.5 - HYPERLIPIDEMIA, UNSPECIFIED (4) Hypertension Assessment/Plan: controlled off meds will monitor Code(s): I10 - ESSENTIAL (PRIMARY) HYPERTENSION Qualifiers: Hypertension type: essential hypertension Qualified Code(s): I10 - Essential (primary) hypertension (5) CAD (coronary artery disease) Assessment/Plan: s/p pci LC stent 05/2017 continue aspirin and plavix followed by cardiology outpt Code(s): I25.10 - ATHSCL HEART DISEASE OF [place] CORONARY ARTERY W/O ANG PCTRS Qualifiers: [place] vs. transplanted heart: [place] heart (6) Hypokalemia Assessment/Plan: k3.4, po potassium chloride 40meq monitor Code(s): E87.6 - HYPOKALEMIA
--- NOTE | 2017-09-03 10:47 | CON.CARD ---
Cardiology Consult (text) - Consultation Consultation Note: cc: sob/cp hpi: 86 m hx cad s/p nstemi/pci 05/2017, htn, hld, anxiety, copd, recurrent pna here with sob/cp. + sudden onset of dull, chest heaviness today (different from prior anginal pain ) - occurred at rest and lasted a few minutes with subsequent dyspnea lasting a few hours. No recurrence + shakiness of his hands + subjective fever/flushing of the face unclear whether his copd has worsened as of late. states he intermittently uses inhaler. States he intermittently rides a bicycle without limitations. was started on 12.5 mg of toprol in june. had stress test in june as well , see result below. No palps, dizzy, loc, pnd, orthopnea, le edema. no nvd, cough, wt loss, abd pain, tapia, vision changes, Sees dr carpenter for cardio. pmh/psh: per hpi social: ex tob fam: no premature cad, scd ros: per hpi; meds: Ambulatory Orders levoFLOXacin [Levaquin -] 500 mg PO DAILY #7 tablet 08/21/17 Per office notes: ?~ ALPRAZolam 0.25MG Oral Tablet once daily prn anxiety, 30 days, 0 refills ?~ Aspirin 81MG Oral Tablet Delayed Release once daily 0 days, 0 refills ?~ Atorvastatin Calcium 40MG Oral Tablet once daily 0 days, 0 refills ?~ CLOPIDOGREL 75 MG Oral Tablet once daily 0 days, 0 refills ?~ Daliresp 500MCG Oral Tablet once daily 0 days, 0 refills ?~ Furosemide 20MG Oral Tablet 1 every other day 0 days, 0 refills ?~ Lexapro 10 MG Tablet once daily, 30 days, 5 refills ?~ Pantoprazole Sodium 40MG Oral Tablet Delayed Release once daily 0 days, 0 refills ?~ PredniSONE 5MG Oral Tablet once daily 0 days, 0 refills ?~ Spiriva HandiHaler 18 MCG Capsule once daily 0 days, 0 refills ?~ Symbicort 160-4.5 MCG/ACT Aerosol once daily 0 days, 0 refills ?~ Zolpidem Tartrate 10MG Oral Tablet 1 every bedtime as needed for sleep, 30 days, 0 refills Current Medications Albuterol Sulfate (Ventolin 0.083% Nebulizer Soln -) 1 amp NEB Q4H PRN PRN Reason: SHORT OF BREATH/WHEEZING Albuterol/Ipratropium (Duoneb -) 1 amp NEB RQID [facility] Last Admin: 09/03/17 09:00 Dose: 1 amp Aspirin (Ecotrin -) 81 mg PO DAILY [facility] Last Admin: 09/03/17 09:45 Dose: 81 mg Atorvastatin Calcium (Lipitor -) 40 mg PO [facility] Budesonide/Formoterol Fumarate (Symbicort 80/4.5mcg -) 2 puff IH BID [facility] Last Admin: 09/03/17 09:45 Dose: 2 puff Clopidogrel Bisulfate (Plavix -) 75 mg PO DAILY [facility] Last Admin: 09/03/17 09:45 Dose: 75 mg Escitalopram Oxalate (Lexapro -) 10 mg PO DAILY [facility] Last Admin: 09/03/17 09:45 Dose: 10 mg Tiotropium [place] (Spiriva -) 1 puff IH DAILY [facility] Last Admin: 09/03/17 09:45 Dose: 1 puff pe: Vital Signs - 24 hr 09/02/17 09/03/17 09/03/17 19:53 01:50 05:52 Temperature 99.5 F 97.6 F 97.4 F L Pulse Rate 104 H 69 59 L Respiratory 20 20 20 Rate Blood Pressure 127/69 132/63 143/73 O2 Sat by Pulse 92 L 94 L Oximetry (%) 09/03/17 07:54 Temperature 98.1 F Pulse Rate 65 Respiratory 18 Rate Blood Pressure 135/70 O2 Sat by Pulse Oximetry (%) Intake & Output 09/01/17 09/02/17 09/03/17 09/04/17 07:59 07:59 07:59 07:59 Weight 163 lb nad no jvd rrr s1s2 no mrg cta bl nl eff aaox3 no le e/c/c abd nt nd pos bs no jaundice diaphoresis pos dp pt, no carotid bruits CBC, BMP 09/03/17 09:40 09/03/17 09:40 Laboratory Tests 09/02/17 09/02/17 09/03/17 21:45 21:45 03:55 WBC 11.3 H Magnesium Total Bilirubin 0.4 D AST 23 ALT 18 Alkaline Phosphatase 54 Creatine Kinase 158 125 CK-MB (CK-2) 2.335 Troponin I < 0.02 0.02 Albumin 3.7 03/13/18 09:40 WBC Magnesium 2.0 Total Bilirubin AST ALT Alkaline Phosphatase Creatine Kinase CK-MB (CK-2) Troponin I Albumin ecg: sr, nl intervals, no ischemic changes tele: sr cxr: wnl stress echo with definity 06/2017: 1.20 min on rodney protocol. PHR 115%. Non ischemic ekg changes. tds echo images. no inducible ischemia (lack of LV augmentation noted). pear rvsp at least 69. [facility] 05/2017: subtotal OM1--Xience. remainder unchanged: 30-50% dRCA, mild pLCX, 50-60% LPL1. EDP 10, nl EF echo 05/2017 tds: nl lv size/fn. can't exclude rwma. rv not well visualized. 1 + ar. nl rvsp. 1+ pericardial effusion. a/p: 86 m hx cad s/p nstemi/pci 05/2017, htn, hld, anxiety, copd, recurrent pna here with sob/cp. sob/copd - mgm't of possible pulm/infectious etiologies per pmd/pulm - ischemic evaluation as mentioned. cp/cad s/p nstemi/pci to lcx 05/2017 - atypical symptoms. ecgs w/o ischemic findings. Ce's neg x 2. recent stent placed 05/2017 but subsequent stress echo in june, (although somewhat suboptimal), did not show residual inducible ischemia. - thus far no recurrence of cp, con't to monitor. - ? whether recent addition of toprol, exacerbated copd. also, previously bradycardic on bb. will hold toprol for now. - con't to monitor on tele for now -cont statin, dapt. htn: -stable off meds, monitor hld: -cont statin
[2017-09-03] MEDS ORDERED: POTASSIUM CHLORIDE TABS 20 MEQ TABLET.ER (FP) PO ONE ×2 (11:00→16:00)
[2017-09-03] MEDS: ALBUTEROL SO4 0.083% IH SOL 2.5 MG/3 ML VIAL.NEB. NEB PRN (11:25)
--- NOTE | 2017-09-03 12:17 | EKG ---
Test Reason : Blood Pressure : / mmHG Vent. Rate : 063 BPM Atrial Rate : 063 BPM P-R Int : 166 ms QRS Dur : 106 ms QT Int : 454 ms P-R-T Axes : 034 -07 059 degrees QTc Int : 464 ms NORMAL SINUS RHYTHM NORMAL ECG WHEN COMPARED WITH ECG OF 02-SEP-2017 19:51, NO SIGNIFICANT CHANGE WAS FOUND Confirmed by MD DONYA, GENESIS ([id number]) on 09/03/2017 12:16:34 PM Referred By: Confirmed By:GENESIS NAQVI MD
--- NOTE | 2017-09-03 12:17 | EKG ---
Test Reason : Blood Pressure : / mmHG Vent. Rate : 088 BPM Atrial Rate : 088 BPM P-R Int : 154 ms QRS Dur : 098 ms QT Int : 384 ms P-R-T Axes : 079 -17 068 degrees QTc Int : 464 ms NORMAL SINUS RHYTHM NORMAL ECG WHEN COMPARED WITH ECG OF 20-AUG-2017 20:14, NO SIGNIFICANT CHANGE WAS FOUND Confirmed by MD DONYA, GENESIS ([id number]) on 09/03/2017 12:17:34 PM Referred By: Confirmed By:GENESIS NAQVI MD
--- NOTE | 2017-09-03 12:19 | PN ---
Progress Note (short form) - Note Progress Note: PULMONARY CONSULTATION DICTATED 09/03/17 IMP CHEST PRESSURE ASHD S/P [place] ,S/P STENT ADVANCED COPD COUGH H/O PNEUMONIA HTN HLD PLAN O2 INHALED BRONCHODILATORS MEDROL X 24HRS LEVAQUIN CE PLAVIX DR HEATH Problem List - Problems (1) Chest pain Code(s): R07.9 - CHEST PAIN, UNSPECIFIED Qualifiers: Chest pain type: unspecified Qualified Code(s): R07.9 - Chest pain, unspecified (2) Anxiety about health Code(s): F41.8 - OTHER SPECIFIED ANXIETY DISORDERS (3) COPD (chronic obstructive pulmonary disease) Code(s): J44.9 - CHRONIC OBSTRUCTIVE PULMONARY DISEASE, UNSPECIFIED Qualifiers: COPD type: COPD with acute exacerbation Qualified Code(s): J44.1 - Chronic obstructive pulmonary disease with (acute) exacerbation (4) COPD exacerbation Code(s): J44.1 - CHRONIC OBSTRUCTIVE PULMONARY DISEASE W (ACUTE) EXACERBATION (5) Cough Code(s): R05 - COUGH (6) Hyperlipidemia Code(s): E78.5 - HYPERLIPIDEMIA, UNSPECIFIED (7) Hypertension Code(s): I10 - ESSENTIAL (PRIMARY) HYPERTENSION (8) Nasal congestion Code(s): R09.81 - NASAL CONGESTION (9) Shortness of breath Code(s): R06.02 - SHORTNESS OF BREATH
[2017-09-03] MEDS: methylPREDNISolone NA SUCC 40 MG/1 ML VIAL IVPUSH SCH ×2 (14:35→18:01)
--- NOTE | 2017-09-03 14:48 | CONS ---
DATE OF CONSULTATION: 09/03/2017 REFERRING PHYSICIAN: Nile Dahl MD The patient is an 86-year-old white male known to me from previous office visits as well as hospitalizations with advanced COPD, on home O2, ASHD, status post IA, status post stent, hypertension, hyperlipidemia, admitted to [facility] with complaint of increasing shortness of breath, chest tightness for a couple of days, a few days prior to admission. He also complained of cough productive of clear yellowish sputum. Denied any fevers, chills, nausea, vomiting, or diaphoresis. On day of admission, the patient had sudden onset of chest pain that began around lunch time. He described the pain as dull and intermittent with chest heaviness. He denied any fevers, chills, or hemoptysis. He also complained of a bloody nose. He presented to the emergency room with the above. In the ER, he had a chest x-ray performed, which showed no evidence of acute infiltrates. He was admitted to the telemetry unit for further management. He was placed in inhaled bronchodilators and supplemental O2. Past medical history, again, includes ASHD, status post IA, status post stent, advanced COPD, on home O2, history of pneumonia, hyperlipidemia, hypertension. Current medications include Symbicort 80/4.5, Lexapro, Spiriva, albuterol, DuoNeb, Lipitor, Ecotrin, Plavix, K-Dur. REVIEW OF SYSTEMS: No orthopnea, no PND. Positive chest heaviness, positive occasional cough. No fever, no chills, no hemoptysis, no abdominal pain, no lower extremity edema. PHYSICAL EXAMINATION: General: The patient is a well-developed, well-nourished male, awake, alert, currently in no acute distress. Vital Signs: He is afebrile. Blood pressure is 135/70. Respiratory rate 16. O2 saturation is 95% on room air. HEENT: Normocephalic, atraumatic. Neck: Supple. Heart: Regular, S1, S2. Chest: A few bibasilar crackles. Abdomen: Soft. Bowel sounds positive. Extremities: No cyanosis, edema. LABORATORY DATA: BUN 25, creatinine 0.8, potassium 3.4, INR is 1.12. WBC is 9.5, hemoglobin 13.9, hematocrit 41.2, with a platelet count of 183,000. Chest x-ray : Chronic changes bilaterally but no acute infiltrates or effusions. IMPRESSION: 1. Dyspnea, chest pressure, likely secondary to chronic obstructive pulmonary disease exacerbation. 2. Arteriosclerotic heart disease, status post myocardial infarction, status post stent. 3. Hypertension. 4. Hyperlipidemia. PLAN: Continue with inhaled bronchodilators, supplemental O2, cardiac enzymes, continue Plavix, sputum for C&S, p.o. ceftriaxone as well as Medrol x24 hours. RAJESH HEATH M.D. CLEMENT/[id number] MTDD
--- NOTE | 2017-09-03 16:32 | EKG ---
Test Reason : Blood Pressure : / mmHG Vent. Rate : 064 BPM Atrial Rate : 064 BPM P-R Int : 162 ms QRS Dur : 092 ms QT Int : 420 ms P-R-T Axes : 053 -19 044 degrees QTc Int : 433 ms NORMAL SINUS RHYTHM NONSPECIFIC ST ABNORMALITY ABNORMAL ECG WHEN COMPARED WITH ECG OF 03-SEP-2017 02:34, NO SIGNIFICANT CHANGE WAS FOUND Confirmed by MD DONYA, GENESIS ([id number]) on 09/03/2017 4:31:55 PM Referred By: , Confirmed By:GENESIS NAQVI MD
[2017-09-03] MEDS: ATORVASTATIN CA 40 MG TABLET (FP) PO SCH (22:01)
[2017-09-04] MEDS: methylPREDNISolone NA SUCC 40 MG/1 ML VIAL IVPUSH SCH ×3 (01:15→18:20)
[2017-09-04 06:30] LABS: BASO % 0.1 % (0-2.0); HEMATOCRIT 42.9 % (35.4-49); HEMOGLOBIN 14.8 GM/dL (11.7-16.9); MCHC 34.4 g/dl (32.0-35.9); MEAN CELL VOLUME 90.2 fl (80-96); MEAN PLT VOLUME 8.2 fl (7.5-11.1); MONO % 0.5 % (3.8-10.2); NEUT % 90.4 % (42.8-82.8); PLATELET COUNT 215 K/MM3 (134-434); RBC 4.76 M/mm3 (4.00-5.60); RDW 14.3 % (11.9-15.9); WHITE BLOOD COUNT 7.7 K/mm3 (4.0-10.0)
[2017-09-04 07:09] LABS: ANION GAP 14 (8-16); BLOOD UREA NITROGEN 26 mg/dL (7-18); CALCIUM 9.1 mg/dL (8.5-10.1); CHLORIDE 107 mmol/L (98-107); CO2 23 mmol/L (21-32); CREATININE 0.7 mg/dL (0.7-1.3); GLUCOSE,RANDOM 146 mg/dL (74-106); MAGNESIUM 2.1 mg/dL (1.8-2.4); POTASSIUM 4.2 mmol/L (3.5-5.1); SODIUM 144 mmol/L (136-145)
--- NOTE | 2017-09-04 08:22 | PN ---
Progress Note (short form) - Note Progress Note: FIRE PREVENTION OFFICER / Dr. Azevedo to document today.
[2017-09-04] MEDS: CLOPIDOGREL BISULFATE 75 MG TABLET (FP) PO SCH (09:03)
[2017-09-04] MEDS: BUDESONIDE/FORMETEROL FUMARATE 80/4.5 mcg INHALER IH SCH ×2 (09:04→21:49)
[2017-09-04] MEDS: ASPIRIN COATED 81 MG TABLET.EC PO SCH (09:04)
[2017-09-04] MEDS: TIOTROPIUM BROMIDE 18 MCG/INH (DEVICE W/ 5 CAPSULES) IH SCH (09:04)
[2017-09-04] MEDS: ESCITALOPRAM OXALATE 10 MG TABLET (FP) PO SCH (09:04)
--- NOTE | 2017-09-04 11:29 | PN ---
Progress Note (short form) - Note Progress Note: s: no cp palps dizzy; still with sob/cough o: Vital Signs Period Temp Pulse Resp BP Sys/Donovan Pulse Ox Last 24 Hr 97.4 F-98.8 F 63-87 18-22 115-148/60-80 95-97 nad no jvd rrr s1s2 no mrg cta bl nl eff aaox3 no le e/c/c abd nt nd pos bs no jaundice diaphoresis Current Medications Generic Name Dose Route Start Last Admin Trade Name Freq PRN Reason Stop Dose Admin Albuterol Sulfate 1 amp 09/03/17 00:56 09/03/17 11:25 Ventolin 0.083% Nebulizer Soln - NEB 1 amp Q4H PRN Administration SHORT OF BREATH/WHEEZING Aspirin 81 mg 09/03/17 10:00 09/04/17 09:04 Ecotrin - PO 81 mg DAILY QUETA Administration Atorvastatin Calcium 40 mg 09/03/17 22:00 09/03/17 22:01 Lipitor - PO 40 mg HS QUETA Administration Budesonide/Formoterol Fumarate 2 puff 09/03/17 10:00 09/04/17 09:04 Symbicort 80/4.5mcg - IH 2 puff BID QUETA Administration Clopidogrel Bisulfate 75 mg 09/03/17 10:00 09/04/17 09:03 Plavix - PO 75 mg DAILY QUETA Administration Escitalopram Oxalate 10 mg 09/03/17 10:00 09/04/17 09:04 Lexapro - PO 10 mg DAILY QUETA Administration Levofloxacin 500 mg in 100 mls @ 100 mls/hr 09/03/17 12:45 09/04/17 09:03 Levaquin 500 Mg Premixed Ivpb - IVPB 100 mls/hr DAILY QUETA Administration Methylprednisolone Sodium Succinate 40 mg 09/03/17 12:30 09/04/17 09:03 Solu-Medrol - IVPUSH 40 mg Q8H-IV QUETA Administration Tiotropium [place] 1 puff 09/03/17 10:00 09/04/17 09:04 Spiriva - IH 1 puff DAILY QUETA Administration ecg: sr, nl intervals, no ischemic changes tele: sr cxr: wnl stress echo with definity 06/2017: 1.20 min on rodney protocol. PHR 115%. Non ischemic ekg changes. tds echo images. no inducible ischemia (lack of LV augmentation noted). pear rvsp at least 69. [facility] 05/2017: subtotal OM1--Xience. remainder unchanged: 30-50% dRCA, mild pLCX, 50-60% LPL1. EDP 10, nl EF echo 05/2017 tds: nl lv size/fn. can't exclude rwma. rv not well visualized. 1 + ar. nl rvsp. 1+ pericardial effusion. a/p: 86 m hx cad s/p nstemi/pci 05/2017, htn, hld, anxiety, copd, recurrent pna here with sob/cp. sob/copd/PNA - mgm't of possible pulm/infectious etiologies per pmd/pulm cp/cad s/p nstemi/pci to lcx 05/2017 - atypical symptoms. ecgs w/o ischemic findings. Ce's neg x 2. recent stent placed 05/2017 but subsequent stress echo in june, (although somewhat suboptimal), did not show residual inducible ischemia. - thus far no recurrence of cp, con't to monitor. - ? whether recent addition of toprol, exacerbated copd. also, previously bradycardic on bb. will hold toprol for now. - con't to monitor on tele for now -cont statin, dapt. htn: -stable off meds, monitor hld: -cont statin
--- NOTE | 2017-09-04 11:34 | PN ---
Progress Note, Physician History of Present Illness: pulmonary alert,c/o sob,less chest pressure - Current Medication List Current Medications: Active Medications Albuterol Sulfate (Ventolin 0.083% Nebulizer Soln -) 1 amp NEB Q4H PRN PRN Reason: SHORT OF BREATH/WHEEZING Last Admin: 09/03/17 11:25 Dose: 1 amp Aspirin (Ecotrin -) 81 mg PO DAILY [facility] Last Admin: 09/04/17 09:04 Dose: 81 mg Atorvastatin Calcium (Lipitor -) 40 mg PO HS [facility] Last Admin: 09/03/17 22:01 Dose: 40 mg Budesonide/Formoterol Fumarate (Symbicort 80/4.5mcg -) 2 puff IH BID [facility] Last Admin: 09/04/17 09:04 Dose: 2 puff Clopidogrel Bisulfate (Plavix -) 75 mg PO DAILY [facility] Last Admin: 09/04/17 09:03 Dose: 75 mg Escitalopram Oxalate (Lexapro -) 10 mg PO DAILY [facility] Last Admin: 09/04/17 09:04 Dose: 10 mg Levofloxacin (Levaquin 500 Mg Premixed Ivpb -) 500 mg in 100 mls @ 100 mls/hr IVPB DAILY [facility] Last Admin: 09/04/17 09:03 Dose: 100 mls/hr Methylprednisolone Sodium Succinate (Solu-Medrol -) 40 mg IVPUSH Q8H-IV [facility] Last Admin: 09/04/17 09:03 Dose: 40 mg Tiotropium [place] (Spiriva -) 1 puff IH DAILY [facility] Last Admin: 09/04/17 09:04 Dose: 1 puff - Objective Vital Signs: Vital Signs Temperature 97.4 F L 09/04/17 09:00 Pulse Rate 87 09/04/17 09:00 Respiratory Rate 22 09/04/17 09:00 Blood Pressure 148/66 09/04/17 09:00 O2 Sat by Pulse Oximetry (%) 97 09/04/17 08:00 Constitutional: Yes: Well Nourished, Calm Eyes: Yes: WNL HENT: Yes: WNL Neck: Yes: WNL Cardiovascular: Yes: Regular Rate and Rhythm, S1, S2 Respiratory: Yes: Diminished Gastrointestinal: Yes: Normal Bowel Sounds, Soft Extremities: Yes: WNL Edema: No Labs: CBC, BMP 09/04/17 06:05 09/04/17 06:05 INR, PTT INR 1.12 (0.82-1.09) 09/02/17 21:45 Problem List - Problems (1) Chest pain Code(s): R07.9 - CHEST PAIN, UNSPECIFIED Qualifiers: Chest pain type: unspecified Qualified Code(s): R07.9 - Chest pain, unspecified (2) Anxiety about health Code(s): F41.8 - OTHER SPECIFIED ANXIETY DISORDERS (3) COPD (chronic obstructive pulmonary disease) Code(s): J44.9 - CHRONIC OBSTRUCTIVE PULMONARY DISEASE, UNSPECIFIED Qualifiers: COPD type: COPD with acute exacerbation Qualified Code(s): J44.1 - Chronic obstructive pulmonary disease with (acute) exacerbation (4) COPD exacerbation Code(s): J44.1 - CHRONIC OBSTRUCTIVE PULMONARY DISEASE W (ACUTE) EXACERBATION (5) Cough Code(s): R05 - COUGH (6) Hyperlipidemia Code(s): E78.5 - HYPERLIPIDEMIA, UNSPECIFIED (7) Hypertension Code(s): I10 - ESSENTIAL (PRIMARY) HYPERTENSION Qualifiers: Hypertension type: essential hypertension Qualified Code(s): I10 - Essential (primary) hypertension (8) Nasal congestion Code(s): R09.81 - NASAL CONGESTION (9) Shortness of breath Code(s): R06.02 - SHORTNESS OF BREATH Assessment/Plan IMP CHEST PRESSURE improving ASHD S/P HI ,S/P STENT ADVANCED COPD DYSPNEA COUGH H/O PNEUMONIA HTN HLD PLAN O2 INHALED BRONCHODILATORS CONTINUE MEDROL LEVAQUIN PLAVIX DR HEATH Problem List - Problems (1) Chest pain Code(s): R07.9 - CHEST PAIN, UNSPECIFIED Qualifiers: Chest pain type: unspecified Qualified Code(s): R07.9 - Chest pain, unspecified (2) Anxiety about health Code(s): F41.8 - OTHER SPECIFIED ANXIETY DISORDERS (3) COPD (chronic obstructive pulmonary disease) Code(s): J44.9 - CHRONIC OBSTRUCTIVE PULMONARY DISEASE, UNSPECIFIED Qualifiers: COPD type: COPD with acute exacerbation Qualified Code(s): J44.1 - Chronic obstructive pulmonary disease with (acute) exacerbation (4) COPD exacerbation Code(s): J44.1 - CHRONIC OBSTRUCTIVE PULMONARY DISEASE W (ACUTE) EXACERBATION (5) Cough Code(s): R05 - COUGH (6) Hyperlipidemia Code(s): E78.5 - HYPERLIPIDEMIA, UNSPECIFIED (7) Hypertension Code(s): I10 - ESSENTIAL (PRIMARY) HYPERTENSION (8) Nasal congestion Code(s): R09.81 - NASAL CONGESTION (9) Shortness of breath Code(s): R06.02 - SHORTNESS OF BREATH
--- NOTE | 2017-09-04 12:47 | DS ---
Physical Examination Vital Signs: Vital Signs Temperature 36.3 C L 09/04/17 09:00 Pulse Rate 87 09/04/17 09:00 Respiratory Rate 22 09/04/17 09:00 Blood Pressure 148/66 09/04/17 09:00 O2 Sat by Pulse Oximetry (%) 97 09/04/17 08:00 Constitutional: Yes: Well Nourished, No Distress, Calm Cardiovascular: Yes: Regular Rate and Rhythm. No: Gallop, Murmur, Rub Respiratory: Yes: Regular, CTA Bilaterally, On Nasal O2. No: Rales, Rhonchi, Wheezes Gastrointestinal: Yes: Normal Bowel Sounds, Soft. No: Distention, Tenderness Extremities: Yes: WNL Edema: No Labs: CBC, BMP 09/04/17 06:05 09/04/17 06:05 Discharge Summary Reason For Visit: CHEST PAIN Current Active Problems CAD (coronary artery disease) (Acute) Chest pain (Acute) Hypokalemia (Acute) Hospital Course: (1) COPD exacerbation Code(s): J44.1 - CHRONIC OBSTRUCTIVE PULMONARY DISEASE W (ACUTE) EXACERBATION (2) Chest pain Code(s): R07.9 - CHEST PAIN, UNSPECIFIED Qualifiers: Chest pain type: unspecified Qualified Code(s): R07.9 - Chest pain, unspecified (3) Hyperlipidemia Code(s): E78.5 - HYPERLIPIDEMIA, UNSPECIFIED (4) Hypertension Code(s): I10 - ESSENTIAL (PRIMARY) HYPERTENSION Qualifiers: Hypertension type: essential hypertension Qualified Code(s): I10 - Essential (primary) hypertension (5) CAD (coronary artery disease) Code(s): I25.10 - ATHSCL HEART DISEASE OF [place] CORONARY ARTERY W/O ANG PCTRS Qualifiers: [place] vs. transplanted heart: [place] heart (6) Hypokalemia Code(s): E87.6 - HYPOKALEMIA Mr Ramirez is a very pleasant 86 year old male who comes in with chest pain and had a COPD exacerbation. He was admitted to telemetry under observation. He was seen by cardiology and cardiac enzymes were sent, these were negative. 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 He was recently started on toprol xl as an outpatient, there was concern this was contributing to COPD exacerbation and this was stopped. Case d/w cardiology and he will not be continued on this as an outpatient. Pulmonary was consulted and he was started on solumedrol. He improved significantly and is stable for discharge home on steroid taper. Will also order combivent as not on outpatient regimen (however toprol xl also not noted on admission so unclear if on this or not). 32 minutes spent in preparation of this discharge Condition: Good - Instructions Diet, Activity, Other Instructions: resume previous diet and activity Referrals: Nile Dahl MD [Primary Care Provider] - Everett Orr MD [Staff Physician] - Neeraj Smallwood MD [Staff Physician] - Disposition: HOME - Home Medications Comprehensive Discharge Medication List: Ambulatory Orders Aspirin Coated [Ecotrin -] 81 mg PO DAILY tablet.ec 09/04/17 Atorvastatin Ca [Lipitor] 40 mg PO HS tablet 09/04/17 Budesonide/Formeterol Fumarate [SYMBICORT 80/4.5mcg -] 2 puff IH BID inhaler Clopidogrel Bisulfate [Plavix -] 75 mg PO DAILY tablet 09/04/17 Escitalopram Oxalate [Lexapro -] 10 mg PO DAILY tablet 09/04/17 Ipratropium/Albuterol Sulfate [Combivent Respimat Inhal [place]] 4 gm IH QID #1 aer.w.adap 09/04/17 Tiotropium [place] [Spiriva] 1 puff IH DAILY inh 09/04/17 predniSONE [Deltasone -] 5 mg PO ASDIR #78 tab 09/04/17
[2017-09-04] MEDS: ALBUTEROL SO4 0.083% IH SOL 2.5 MG/3 ML VIAL.NEB. NEB PRN (18:50)
[2017-09-04] MEDS: ATORVASTATIN CA 40 MG TABLET (FP) PO SCH (21:49)
[2017-09-04] MEDS ORDERED: ALPRAZolam 0.25 MG TABLET PO ONE (23:30)
[2017-09-05] MEDS: methylPREDNISolone NA SUCC 40 MG/1 ML VIAL IVPUSH SCH ×2 (02:05→09:01)
--- NOTE | 2017-09-05 08:36 | PN ---
Progress Note (short form) - Note Progress Note: Dr. Azevedo to document today.
[2017-09-05] MEDS ORDERED: PT OWN MED DRAWER 7, Y5N ONE (08:44)
[2017-09-05] MEDS: ASPIRIN COATED 81 MG TABLET.EC PO SCH (09:01)
[2017-09-05] MEDS: BUDESONIDE/FORMETEROL FUMARATE 80/4.5 mcg INHALER IH SCH (09:02)
[2017-09-05] MEDS: CLOPIDOGREL BISULFATE 75 MG TABLET (FP) PO SCH (09:02)
[2017-09-05] MEDS: ESCITALOPRAM OXALATE 10 MG TABLET (FP) PO SCH (09:02)
[2017-09-05] MEDS: TIOTROPIUM BROMIDE 18 MCG/INH (DEVICE W/ 5 CAPSULES) IH SCH (09:02)
[2017-09-05 09:34] VITALS: BP 121/72; PULSE 78; TEMP 98.1
--- NOTE | 2017-09-05 11:25 | PN ---
Progress Note (short form) - Note Progress Note: s: no cp palps dizzy; cough better, no sob o: Vital Signs Period Temp Pulse Resp BP Sys/Donovan Pulse Ox Last 24 Hr 97.7 F-99.3 F 68-92 18-22 119-130/60-84 96-97 nad no jvd rrr s1s2 no mrg cta bl nl eff aaox3 no le e/c/c abd nt nd pos bs no jaundice diaphoresis Laboratory Last Values WBC 7.7 K/mm3 (4.0-10.0) 09/04/17 06:05 RBC 4.76 M/mm3 (4.00-5.60) 09/04/17 06:05 Hgb 14.8 GM/dL (11.7-16.9) 09/04/17 06:05 Hct 42.9 % (35.4-49) 09/04/17 06:05 MCV 90.2 fl (80-96) 09/04/17 06:05 MCH 31.0 pg (25.7-33.7) 09/04/17 06:05 MCHC 34.4 g/dl (32.0-35.9) 09/04/17 06:05 RDW 14.3 % (11.9-15.9) 09/04/17 06:05 Plt Count 215 K/MM3 (134-434) 09/04/17 06:05 MPV 8.2 fl (7.5-11.1) 09/04/17 06:05 Neutrophils % 90.4 % (42.8-82.8) H D 09/04/17 06:05 Lymphocytes % 9.0 % (8-40) D 09/04/17 06:05 Monocytes % 0.5 % (3.8-10.2) L D 09/04/17 06:05 Eosinophils % 0.0 % (0-4.5) D 09/04/17 06:05 Basophils % 0.1 % (0-2.0) 09/04/17 06:05 PT with INR 12.60 SEC (9.98-11.88) H 09/02/17 21:45 INR 1.12 (0.82-1.09) 09/02/17 21:45 PTT (Actin FS) 29.3 SECONDS (26.9-34.4) 09/02/17 21:45 Sodium 144 mmol/L (136-145) 09/04/17 06:05 Potassium 4.2 mmol/L (3.5-5.1) D 09/04/17 06:05 Chloride 107 mmol/L (98-107) 09/04/17 06:05 Carbon Dioxide 23 mmol/L (21-32) D 09/04/17 06:05 Anion Gap 14 (8-16) 09/04/17 06:05 BUN 26 mg/dL (7-18) H 09/04/17 06:05 Creatinine 0.7 mg/dL (0.7-1.3) 09/04/17 06:05 Creat Clearance w eGFR > 60 (>60) 09/02/17 21:45 Random Glucose 146 mg/dL (74-106) H D 09/04/17 06:05 Calcium 9.1 mg/dL (8.5-10.1) 09/04/17 06:05 Phosphorus 3.0 mg/dL (2.5-4.9) 09/03/17 09:40 Magnesium 2.1 mg/dL (1.8-2.4) 09/04/17 06:05 Total Bilirubin 0.4 mg/dL (0.2-1.0) D 09/02/17 21:45 AST 23 U/L (15-37) 09/02/17 21:45 ALT 18 U/L (12-78) 09/02/17 21:45 Alkaline Phosphatase 54 U/L (45-117) 09/02/17 21:45 Creatine Kinase 135 IU/L (39-308) 09/03/17 09:40 Creatine Kinase Index 1.4 % (0.0-5.0) 09/02/17 21:45 CK-MB (CK-2) 2.335 ng/mL (0.5-3.6) 09/02/17 21:45 Troponin I < 0.02 ng/ml (0.00-0.05) 09/04/17 06:05 Total Protein 6.2 g/dl (6.4-8.2) L 09/02/17 21:45 Albumin 3.7 g/dl (3.4-5.0) 09/02/17 21:45 ecg: sr, nl intervals, no ischemic changes tele: sr cxr: wnl stress echo with definity 06/2017: 1.20 min on rodney protocol. PHR 115%. Non ischemic ekg changes. tds echo images. no inducible ischemia (lack of LV augmentation noted). pear rvsp at least 69. [facility] 05/2017: subtotal OM1--Xience. remainder unchanged: 30-50% dRCA, mild pLCX, 50-60% LPL1. EDP 10, nl EF echo 05/2017 tds: nl lv size/fn. can't exclude rwma. rv not well visualized. 1 + ar. nl rvsp. 1+ pericardial effusion. a/p: 86 m hx cad s/p nstemi/pci 05/2017, htn, hld, anxiety, copd, recurrent pna here with sob/cp. sob/copd/PNA - mgm't of possible pulm/infectious etiologies per pmd/pulm cp/cad s/p nstemi/pci to lcx 05/2017 - atypical symptoms. ecgs w/o ischemic findings. Ce's neg x 2. recent stent placed 05/2017 but subsequent stress echo in june, (although somewhat suboptimal), did not show residual inducible ischemia. - thus far no recurrence of cp - ? whether recent addition of toprol, exacerbated copd. also, previously bradycardic on bb. continue to hold toprol. -cont statin, dapt. htn: -stable off meds, monitor hld: -cont statin ok for dc cardiac brennan
== END 2017-09-05 13:25 | disposition home or self-care (01) | DRG 192 ==
LOC: JER 19:40 → JERBED 23:51 → UNDOADMOB 09-03 01:48 → J4W 09-03 02:01 → OBSVTOIN 09-04 10:39
PROVIDERS: ADMIT Internal Medicine; ATTEND Internal Medicine
DX: J44.1 Chronic obstructive pulmonary disease with (acute) exacerbation (principal); E87.6 Hypokalemia; I25.2 Old myocardial infarction; R07.9 Chest pain, unspecified; I10 Essential (primary) hypertension; E78.5 Hyperlipidemia, unspecified; Z99.81 Dependence on supplemental oxygen; R91.1 Solitary pulmonary nodule; F41.9 Anxiety disorder, unspecified; Z87.891 Personal history of nicotine dependence; I25.10 Atherosclerotic heart disease of native coronary artery without angina pectoris; R07.89 Other chest pain; Z91.013 Allergy to seafood
CPT/HCPCS: 36415; 71045-TC-FY; 80048; 80053; 82550; 82553; 83735; 84100; 84484; 85025; 85610; 85730; 93005; 93010; 94640; 99283-25; G0378; J7620

== ENCOUNTER 2017-11-22 14:02 | Observation (INO) | payer OTHER, BC ==
[2017-11-22] MEDS ORDERED: ASPIRIN 81 MG CHEWABLE TABLETS PO ONE (14:19)
[2017-11-22] MEDS ORDERED: NITROGLYCERIN SUBLINGUAL 1/150 0.4 MG TAB SL ONE (14:27)
[2017-11-22] MEDS ORDERED: ALBUTEROL SO4 2.5/IPRATROPIUM 0.5 INH SOL 3 ML VIAL.NEB. NEB ONE ×2 (14:28→14:33)
--- NOTE | 2017-11-22 14:30 | PDOC ---
Attending Attestation - Resident Resident Name: Nile Nelson - ED Attending Attestation I have performed the following: I have examined & evaluated the patient, The case was reviewed & discussed with the resident, I agree w/resident's findings & plan, Exceptions are as noted - HPI HPI: 11/22/17 14:42 86 year old male with past medical history of COPD, coronary disease status post stents, hypertension, hyperlipidemia presents with several days of chest tightness, dyspnea on exertion. Last couple days, the patient has been endorsing productive cough and wheezing which he has been using his albuterol. 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 However, the symptoms were persistent and worsening so came to the ER. - Physicial Exam PE: 11/22/17 14:42 GENERAL: Awake, alert, and fully oriented, in no acute distress. HEAD: No signs of trauma EYES: EOMI, sclera anicteric, conjunctiva clear ENT: Auricles normal inspection, hearing grossly normal, nares patent NECK: Normal ROM, supple LUNGS: Ronchorous breath sounds bilaterally. HEART: Regular rate and rhythm, normal S1 and S2, no murmurs, rubs or gallops EXTREMITIES: Normal range of motion, no edema. No clubbing or cyanosis. No cords, erythema, or tenderness NEUROLOGICAL: Cranial nerves II through XII grossly intact. Normal speech, normal gait SKIN: Warm, Dry, normal turgor, no rashes or lesions noted. - Medical Decision Making 11/22/17 14:43 Vital Signs Temp Pulse Resp BP Pulse Ox 99.4 F 90 24 131/57 96 11/22/17 14:05 11/22/17 14:05 11/22/17 14:05 11/22/17 14:05 11/22/17 14:05 Differential includes COPD exacerbation, PNA, NC/ACS Chest xray, labs, cultures Nebs, steroids. Blood cultures. Aspirin Admit 11/22/17 17:04 Chest xray reviewed. No acute findings. CBC, BMP 11/22/17 15:21 11/22/17 15:21 CMP Sodium 143 mmol/L (136-145) 11/22/17 15:21 Potassium 3.8 mmol/L (3.5-5.1) 11/22/17 15:21 Chloride 106 mmol/L (98-107) 11/22/17 15:21 Carbon Dioxide 27 mmol/L (21-32) 11/22/17 15:21 Anion Gap 10 (8-16) 11/22/17 15:21 BUN 23 mg/dL (7-18) H 11/22/17 15:21 Creatinine 1.1 mg/dL (0.7-1.3) D 11/22/17 15:21 Creat Clearance w eGFR > 60 (>60) 11/22/17 15:21 Random Glucose 144 mg/dL (74-106) H 11/22/17 15:21 Calcium 8.6 mg/dL (8.5-10.1) 11/22/17 15:21 Magnesium 1.9 mg/dL (1.8-2.4) 11/22/17 15:21 Total Bilirubin 0.5 mg/dL (0.2-1.0) D 11/22/17 15:21 AST 19 U/L (15-37) 11/22/17 15:21 ALT 20 U/L (12-78) 11/22/17 15:21 Alkaline Phosphatase 54 U/L (45-117) 11/22/17 15:21 Creatine Kinase 128 IU/L (39-308) 11/22/17 15:21 Troponin I < 0.02 ng/ml (0.00-0.05) 11/22/17 15:21 Total Protein 5.9 g/dl (6.4-8.2) L 11/22/17 15:21 Albumin 3.4 g/dl (3.4-5.0) 11/22/17 15:[address] Smallwood, who is at bedside and evaluating patient. Likely COPD exacerbation. Will still HUGH. Heart Score/ECG Review #1 ECG reviewed & interpreted by me at: 14:20 11/22/17 14:30 NSR 90, left axis deviation, no std/donnell, left axis deviation, QTC 442 msec
[2017-11-22 14:41] VITALS: BMI 25.1
[2017-11-22] MEDS ORDERED: methylPREDNISolone NA SUCC 125 MG/2 ML VIAL IVPB ONE (14:41)
[2017-11-22] MEDS ORDERED: ASPIRIN 81 MG CHEWABLE TABLETS ONE (14:50)
[2017-11-22] MEDS ORDERED: methylPREDNISolone NA SUCC 125 MG/2 ML VIAL ONE (15:12)
--- NOTE | 2017-11-22 15:21 | PDOC ---
History of Present Illness - General Stated Complaint: DIFFICULTY BREATHING Time Seen by Provider: 11/22/17 14:12 History Source: Patient Exam Limitations: No Limitations - History of Present Illness Initial Comments: 11/22/17 15:18 Patient is an 86M with history of COPD, HTN, ID, s/p stenting in 2017, HLD here today complaining of chest pain. The pain is located substernally and is worsened with exertion and improved with rest. No change with inspiration or movement of limbs. Patient has associated shortness of breath, productive cough with yellow sputum. Patient reports being seen by Dr Smallwood and taking levaquin. Endorses subjective fevers and chills. Denies nausea, and vomiting. Denies history of blood clots, leg swelling, and recent travel. Past History - Past Medical History Allergies/Adverse Reactions: Allergies Allergy/AdvReac Type Severity Reaction Status Date / Time No Known Drug Allergies Allergy Verified 11/22/17 15:32 shrimp Allergy Unknown lip Uncoded 11/22/17 15:32 swelling Home Medications: Ambulatory Orders Aspirin Coated [Ecotrin -] 81 mg PO DAILY tablet.ec 09/04/17 Atorvastatin Ca [Lipitor] 40 mg PO HS tablet 09/04/17 Budesonide/Formeterol Fumarate [SYMBICORT 80/4.5mcg -] 2 puff IH BID inhaler Clopidogrel Bisulfate [Plavix -] 75 mg PO DAILY tablet 09/04/17 Escitalopram Oxalate [Lexapro -] 10 mg PO DAILY tablet 09/04/17 Ipratropium/Albuterol Sulfate [Combivent Respimat Inhal [place]] 4 gm IH QID #1 aer.w.adap 09/04/17 Tiotropium [place] [Spiriva] 1 puff IH DAILY inh 09/04/17 predniSONE [Deltasone -] 5 mg PO ASDIR #78 tab 09/04/17 Anemia: No Asthma: No Cancer: Yes (Lung Nodule R) Cardiac Disorders: Yes (Chest Pain, ID with stents) CVA: No COPD: Yes CHF: No DVT: No Dementia: No Diabetes: No Dialysis: No GI Disorders: No Disorders: No HTN: Yes Hypercholesterolemia: Yes Kidney Stones: No Liver Disease: No Psychiatric Problems: No Seizures: No Thyroid Disease: No Lung CA: No - Surgical History Abdominal Surgery: No Appendectomy: No Cardiac Surgery: Yes (Cardiac Cath 2015, stents 2017) Cholecystectomy: No Gastric Stapling: No GI Surgery: No Lung Surgery: No Neurologic Surgery: No Orthopedic Surgery: No - Immunization History Td Vaccination: Yes TDAP Vaccination: Yes Immunization Up to Date: Yes - Suicide/Smoking/Psychosocial Hx Smoking Status: Yes Smoking History: Former smoker Have you smoked in the past 12 months: No Number of Cigarettes Smoked Daily: 0 If you are a former smoker, when did you quit?: 40 years ago Cigars Per Day: 0 Information on smoking cessation initiated: No Hx Alcohol Use: No Drug/Substance Use Hx: No Substance Use Type: None Hx Substance Use Treatment: No Review of Systems - Review of Systems Comments:: 11/22/17 15:21 GENERAL/CONSTITUTIONAL: Positive for fever or chills. HEAD, EYES, EARS, NOSE AND THROAT: No change in vision. No sore throat. CARDIOVASCULAR: Positive for chest pain and shortness of breath RESPIRATORY: Positive for cough. Negative for wheezing, or hemoptysis. GASTROINTESTINAL: No nausea, vomiting, diarrhea or constipation. GENITOURINARY: No dysuria, frequency, or change in urination. MUSCULOSKELETAL: No joint or muscle swelling or pain. No neck or back pain. SKIN: No rash NEUROLOGIC: No headache, vertigo, loss of consciousness, or change in strength/ sensation. HEMATOLOGIC/LYMPHATIC: No anemia, easy bleeding, or history of blood clots. ALLERGIC/IMMUNOLOGIC: No hives or skin allergy. *Physical Exam - Vital Signs Last Vital Signs Temp Pulse Resp BP Pulse Ox 99.4 F 80 28 H 107/54 2 L 11/22/17 14:05 11/22/17 14:05 11/22/17 14:05 11/22/17 14:05 11/22/17 14:05 - Physical Exam Comments: 11/22/17 15:27 GENERAL: Awake, alert, and fully oriented, in no acute distress HEAD: No signs of trauma, normocephalic, atraumatic EYES: PERRLA, EOMI, sclera anicteric, conjunctiva clear ENT: Auricles normal inspection, hearing grossly normal, nares patent, oropharynx clear without exudates. Moist mucosa NECK: Normal ROM, supple, no lymphadenopathy, JVD, or masses LUNGS: No distress, speaks full sentences, coarse breath sounds bilaterally HEART: Regular rate and rhythm, normal S1 and S2, no murmurs, rubs or gallops, peripheral pulses normal and equal bilaterally. ABDOMEN: Soft, nontender, normoactive bowel sounds. No guarding, no rebound. No masses EXTREMITIES: Normal inspection, Normal range of motion, no edema. No clubbing or cyanosis. NEUROLOGICAL: Cranial nerves II through XII grossly intact. Normal speech, no focal sensorimotor deficits SKIN: Warm, Dry, normal turgor, no rashes or lesions noted. ED Treatment Course - LABORATORY CBC & Chemistry Diagram: 11/22/17 15:21 11/22/17 15:21 - RADIOLOGY Radiology Studies Ordered: Category Date Time Status CHEST X-RAY PORTABLE* [RAD] Stat Radiology 11/22/17 14:19 Taken - Medications Given in the ED: ED Medications Discontinued Medications Generic Name Dose Route Start Last Admin Trade Name Freq PRN Reason Stop Dose Admin Albuterol/Ipratropium 1 amp 11/22/17 14:33 11/22/17 14:34 Duoneb - NEB 11/22/17 14:34 1 amp ONCE ONE Administration Aspirin 162 mg 11/22/17 14:19 11/22/17 14:20 Asa - PO 11/22/17 14:20 162 mg ONCE ONE Administration Nitroglycerin 0.4 mg 11/22/17 14:27 11/22/17 14:30 Nitrostat - SL 11/22/17 14:28 0.4 mg ONCE ONE Administration Medical Decision Making - Medical Decision Making 11/22/17 15:27 Patient is 86M with history of COPD, HTN, and ID s/p stenting here with chest pain and shortness of breath. Vital signs notable for tachypnea. Normal vital signs otherwise. DDx is weighted towards ACS vs COPD exacerbation. On levaquin. No change in symptoms with nitro. Given duonebs, feels improved. Will workup with cbc, cmp, trop, ekg, pt/inr, mg, cxr. Will treat with solumedrol and mag. CXR shows diffuse increased lung markings with increased opacities in lower lung ferrer. No clear acute process. 11/22/17 16:38 EKG shows normal sinus rhythm with rate of 90. No st elevations/depressions. No significant t wave abnormalities. Normal QRS/QTc/NM intervals. Left axis deviation. 11/22/17 16:57 Laboratory Tests 11/22/17 11/22/17 11/22/17 15:21 15:21 15:21 WBC 9.6 Hgb 13.7 Plt Count 181 INR 1.28 H BUN 23 H Creatinine 1.1 D Troponin I < 0.02 CBC normal. INR slightly elevated. CMP reassuring. Troponin undetectable. Dr Smallwood consulted, evaluated patient. Will admit patient to hospitalist. *DC/Admit/Observation/Transfer Diagnosis at time of Disposition: Chest pain - Discharge Dispostion Condition at time of disposition: Stable Decision to Admit order: Yes - Referrals Referrals: Nile Dahl MD [Primary Care Provider] - - Patient Instructions - Post Discharge Activity
[2017-11-22 15:30] LABS: BASO % 0.5 % (0-2.0); EOS % 0.2 % (0-4.5); HEMATOCRIT 40.7 % (35.4-49); HEMOGLOBIN 13.7 GM/dL (11.7-16.9); LYMPH % 8.4 % (8-40); MCH 30.4 pg (25.7-33.7); MCHC 33.7 g/dl (32.0-35.9); MEAN CELL VOLUME 90.1 fl (80-96); MEAN PLT VOLUME 8.4 fl (7.5-11.1); MONO % 6.5 % (3.8-10.2); NEUT % 84.4 % (42.8-82.8); PLATELET COUNT 181 K/MM3 (134-434); RBC 4.51 M/mm3 (4.00-5.60); RDW 14.4 % (11.9-15.9); WHITE BLOOD COUNT 9.6 K/mm3 (4.0-10.0)
[2017-11-22 16:25] LABS: INR 1.28 (0.82-1.09); PROTHROMBIN TIME (PATIENT) 14.5 SEC (9.7-13.0)
[2017-11-22 16:43] LABS: ANION GAP 10 (8-16); BLOOD UREA NITROGEN 23 mg/dL (7-18); CALCIUM 8.6 mg/dL (8.5-10.1); CHLORIDE 106 mmol/L (98-107); CO2 27 mmol/L (21-32); CREATININE 1.1 mg/dL (0.7-1.3); GLUCOSE,RANDOM 144 mg/dL (74-106); MAGNESIUM 1.9 mg/dL (1.8-2.4); POTASSIUM 3.8 mmol/L (3.5-5.1); SODIUM 143 mmol/L (136-145); TOT PROT 5.9 g/dl (6.4-8.2)
[2017-11-22 16:44] LABS: ALBUMIN 3.4 g/dl (3.4-5.0); BILIRUBIN,TOTAL 0.5 mg/dL (0.2-1.0); SGOT/AST 19 U/L (15-37); SGPT/ALT 20 U/L (12-78)
[2017-11-22 16:46] LABS: ALK PHOS 54 U/L (45-117)
--- NOTE | 2017-11-22 17:10 | PN ---
Progress Note (short form) - Note Progress Note: PULMONARY CONSULTATION DICTATED 11/22/17 IMP DYSPNEA,CHEST CONGESTION COPD EXACERBATION URI ASHD S/P STENT HLD HTN PLAN IV STEROIDS INHALED BRONCHODILATORS O2 ABX SPUTUM C+S CHEST CT AM DR HEATH Problem List - Problems (1) COPD exacerbation Code(s): J44.1 - CHRONIC OBSTRUCTIVE PULMONARY DISEASE W (ACUTE) EXACERBATION (2) Chest pain Code(s): R07.9 - CHEST PAIN, UNSPECIFIED (3) Cough Code(s): R05 - COUGH (4) Hyperlipidemia Code(s): E78.5 - HYPERLIPIDEMIA, UNSPECIFIED (5) Hypertension Code(s): I10 - ESSENTIAL (PRIMARY) HYPERTENSION Qualifiers: (6) Shortness of breath Code(s): R06.02 - SHORTNESS OF BREATH (7) CAD (coronary artery disease) Code(s): I25.10 - ATHSCL HEART DISEASE OF [place] CORONARY ARTERY W/O ANG PCTRS Qualifiers: [place] vs. transplanted heart: [place] heart
[2017-11-22] MEDS ORDERED: ALBUTEROL SO4 0.083% IH SOL 2.5 MG/3 ML VIAL.NEB. NEB PRN (17:14)
[2017-11-22] MEDS ORDERED: CEFUROXIME NA 750 MG VIAL IM SCH (17:15)
[2017-11-22] MEDS ORDERED: methylPREDNISolone NA SUCC 40 MG/1 ML VIAL ONE ×2 (17:32→17:33)
[2017-11-22] MEDS ORDERED: MAGNESIUM SULF 50% (8.12 MEQ/2 ML-1 GM VIAL) ONE (17:32)
[2017-11-22] MEDS: methylPREDNISolone NA SUCC 40 MG/1 ML VIAL IVPB SCH (17:34)
--- NOTE | 2017-11-22 18:11 | CONS ---
PULMONARY CONSULTATION DATE OF CONSULTATION: 11/22/2017 REFERRING PHYSICIAN: Nile Dahl MD The patient is an 86-year-old white male known to me in previous office visits as well as hospitalizations with past medical history of advanced COPD, currently maintained on home O2 at night as well as with exertion; ASHD status post stents; hypertension; hyperlipidemia; history of tobacco use, quit years ago, admitted to [facility] with complaint of increasing shortness of breath and chest congestion. Patient was doing well until a few days prior to this admission when he started development of chest congestion and cough productive of yellow sputum. At the time, he called me. He was prescribed Levaquin. Initially, he felt improvement and was doing well until today when he started developing increasing shortness of breath, cough, and congestion. At which time, he presented to the emergency room. He denied any fevers. He did have chills. Denied any nausea, vomiting, or diaphoresis. Denied any hemoptysis. In the ER, a chest x-ray was performed which revealed no definitive infiltrates on chest x-ray. He was started on inhaled bronchodilators. He was prescribed prednisone and DuoNebs with some improvement. He denies any recent travel. He denies any hemoptysis. He does complain of some chest tightness. PAST MEDICAL HISTORY: Again includes ASHD status post stents, COPD, hypertension, hyperlipidemia. REVIEW OF SYSTEMS: Positive cough. Positive mild chest congestion. Positive chills. No fever. Positive chest tightness. No nausea. No vomiting. No diaphoresis. MEDICATIONS PRIOR TO ADMISSION: Include enteric-coated aspirin, Lipitor, Plavix, Symbicort, Combivent, Lexapro, prednisone 5 mg, and Spiriva. PHYSICAL EXAMINATION: General: The patient is a well-developed, well-nourished male, awake, alert, currently in no acute distress. Vital Signs: He is currently afebrile. Blood pressure is 131/57, respiratory rate is 24, and O2 saturation is 91% on room air. His temperature is 99.4 HEENT: Normocephalic, atraumatic. Neck: Supple. Heart: Regular. S1, S2. Chest: A few scattered rhonchi. Abdomen: Soft. Bowel sounds are positive. Extremities: No cyanosis or edema. LABORATORY DATA: WBC is 9.6, hemoglobin 13.7, hematocrit 40.7, a platelet count of 181,000. INR is 1.28. Venous blood gas 7.43, pCO2 of 42, a pO2 of 41, a bicarbonate of 27. Chest x-ray reveals poor inspiratory effort but no definitive infiltrates or effusions. IMPRESSION: 1. Dyspnea, most likely secondary to chronic obstructive pulmonary disease exacerbation. 2. Likely upper respiratory tract infection. 3. Atherosclerotic heart disease status post stents. 4. Hypertension. PLAN: Inhaled bronchodilators, supplemental O2, a short course of steroids, antibiotics. Obtain followup chest x-ray, sputum for C&S. Also, continue current cardiac medications. RAJESH HEATH M.D. [id number]
--- NOTE | 2017-11-22 18:12 | HP ---
Admitting History and Physical - Primary Care Physician PCP: Nile Dahl - Admission Chief Complaint: Chest Pain and SOB History of Present Illness: 86 year old male with a significant past medical history of COPD on home oxygen , [place] s/p stent 05/2017 who presented to the ED with a several day history of productive cough, clear phlegm and chest pain , patient was admitted in 08/2017 at [facility] was treated for COPD exacerbation, recent cardiac w/u including stress ECHO in 06/2017 was reported normal, in the Ed seen and evaluated by Pulmonary consult is being admitted for further evaluation and management. - Past Medical History Cardiovascular: Yes: HTN, Hyperlipdemia. No: AFIB Pulmonary: Yes: COPD, O2 Dependent, Pneumonia. No: Previously Intubated Gastrointestinal: Yes: Constipation Renal/: Yes: BPH Psych: Yes: Anxiety Musculoskeletal: Yes: Osteoarthritis ENT: Yes: Sinusitis - Past Surgical History Past Surgical History: Yes: Cataract Removal (bilateral) - Smoking History Smoking history: Former smoker Have you smoked in the past 12 months: No Aproximately how many cigarettes per day: 0 If you are a former smoker, when did you quit?: 40 years ago - Alcohol/Substance Use Hx Alcohol Use: No History of Substance Use: reports: None - Social History ADL: Independent Occupation: retired History of Recent Travel: No Home Medications - Allergies Allergies/Adverse Reactions: Allergies Allergy/AdvReac Type Severity Reaction Status Date / Time No Known Drug Allergies Allergy Verified 11/22/17 15:32 shrimp Allergy Unknown lip Uncoded 11/22/17 15:32 swelling - Home Medications Home Medications: Ambulatory Orders Aspirin Coated [Ecotrin -] 81 mg PO DAILY tablet.ec 09/04/17 Atorvastatin Ca [Lipitor] 40 mg PO HS tablet 09/04/17 Budesonide/Formeterol Fumarate [SYMBICORT 80/4.5mcg -] 2 puff IH BID inhaler Clopidogrel Bisulfate [Plavix -] 75 mg PO DAILY tablet 09/04/17 Escitalopram Oxalate [Lexapro -] 10 mg PO DAILY tablet 09/04/17 Ipratropium/Albuterol Sulfate [Combivent Respimat Inhal [place]] 4 gm IH QID #1 aer.w.adap 09/04/17 Tiotropium [place] [Spiriva] 1 puff IH DAILY inh 09/04/17 Budesonide/Formeterol Fumarate [SYMBICORT 80/4.5mcg -] 2 puff IH BID inhaler Cefuroxime [place]etil [Ceftin -] 500 mg PO BID 5 Days #10 tablet 11/24/17 predniSONE [Deltasone -] 60 mg PO DAILY 7 Days #7 tablet 11/24/17 Family Disease History - Family Disease History Family Disease History: Respiratory: Father, Other: Mother (sinus issues) Review of Systems - Review of Systems Constitutional: reports: Fever, Lethargy, Loss of Appetite Neck: denies: Decreased ROM, Lumps, Pain on Movement Cardiovascular: reports: Chest Pain, Shortness of Breath. denies: Edema Respiratory: reports: Cough, Exercise Intolerance Gastrointestinal: denies: Abdominal Pain, Bloating, Constipation Musculoskeletal: reports: Joint Swelling. denies: Back Pain, Crepitus, Muscle Cramps Neurological: denies: Change in LOC, Change in Speech, Confusion Endocrine: denies: Excessive Sweating, Flushing Hematology/Lymphatic: denies: Easily Bruised, Excessive Bleeding Psychiatric: reports: Altered Sleep Pattern Pain Intensity: 6 Physical Examination Vital Signs: Vital Signs Temperature 99.4 F 11/22/17 14:05 Pulse Rate 80 11/22/17 14:05 Respiratory Rate 28 H 11/22/17 14:05 Blood Pressure 107/54 11/22/17 14:05 O2 Sat by Pulse Oximetry (%) 2 L 11/22/17 14:05 Constitutional: Yes: Well Nourished, No Distress, Anxious HENT: No: Normocephalic, Drooling, Epistaxis, Hoarseness Neck: Yes: Supple, Trachea Midline. No: Decreased ROM, Lymphadenopathy Cardiovascular: Yes: Regular Rate and Rhythm, Tachycardia, S1, S2. No: JVD, Gallop Respiratory: Yes: Regular, Rhonchi, SOB, SOB on Exertion Gastrointestinal: Yes: Normal Bowel Sounds, Soft Musculoskeletal: No: Back Pain, Joint Stiffness Extremities: No: Calf Tenderness Edema: No Peripheral Pulses WNL: Yes Peripheral Pulses: Left Doralis Pedis: 1+, Right Dorsalis Pedis: 1+ Integumentary: Yes: Other (Echymoses areas on both shins and UE) Neurological: Yes: Alert, Oriented. No: Aphasia, Asterixis ...Motor Strength: WNL, LUE, LLE, RUE, RLE Labs: CBC, BMP 11/22/17 15:21 11/22/17 15:21 Imaging - Results X-ray: Report Reviewed (No acute changes) EKG: Report Reviewed Problem List - Problems (1) COPD exacerbation Assessment/Plan: Patient present with cough expectoration and SOB failed out patient treatment, recived Nebs and feeling improved will cont Inhaled steroids, IV solumedrol, IV ABx F/U sputum aand blood culture Code(s): J44.1 - CHRONIC OBSTRUCTIVE PULMONARY DISEASE W (ACUTE) EXACERBATION (2) Chest pain Assessment/Plan: Atypical cont tylenol F/U serial Ce Code(s): R07.9 - CHEST PAIN, UNSPECIFIED (3) CAD (coronary artery disease) Assessment/Plan: S/P Stent in May 2017 , Stress ECHO -Ve in Jun 2017 , atypical reproducible chest pain R/O ACS Cont ASA, stain S/L NTG PRN, serial CE and Cardiology consult Code(s): I25.10 - ATHSCL HEART DISEASE OF [place] CORONARY ARTERY W/O ANG PCTRS Qualifiers: [place] vs. transplanted heart: [place] heart (4) Hyperlipidemia Assessment/Plan: Cont Statin F?u Lipid panel Code(s): E78.5 - HYPERLIPIDEMIA, UNSPECIFIED (5) Hypertension Assessment/Plan: Well Controlled cont Home Meds Code(s): I10 - ESSENTIAL (PRIMARY) HYPERTENSION Qualifiers: (6) Anxiety Assessment/Plan: Cont Home meds Code(s): F41.9 - ANXIETY DISORDER, UNSPECIFIED
[2017-11-22] MEDS ORDERED: BUDESONIDE/FORMETEROL FUMARATE 80/4.5 mcg INHALER IH SCH (22:00)
[2017-11-22] MEDS ORDERED: PATIENT'S OWN MEDICATION (NON-FORMULARY) (Ipratropium/Albuterol Sulfate [Combivent Respima IH SCH (22:00)
[2017-11-22] MEDS ORDERED: ATORVASTATIN CA 40 MG TABLET (FP) ONE (23:12)
[2017-11-22] MEDS: BUDESONIDE/FORMETEROL FUMARATE 80/4.5 mcg INHALER IH SCH (23:18)
[2017-11-22] MEDS: ATORVASTATIN CA 40 MG TABLET (FP) PO SCH (23:18)
[2017-11-23] MEDS ORDERED: CEFUROXIME NA 750 MG VIAL ONE (03:45)
[2017-11-23] MEDS ORDERED: methylPREDNISolone NA SUCC 40 MG/1 ML VIAL ONE (03:45)
[2017-11-23] MEDS: methylPREDNISolone NA SUCC 40 MG/1 ML VIAL IVPB SCH ×3 (03:50→18:14)
[2017-11-23] MEDS: CEFUROXIME NA 750 MG VIAL IM SCH ×3 (03:50→18:10)
[2017-11-23 06:59] LABS: BASO % 0.2 % (0-2.0); HEMATOCRIT 39.3 % (35.4-49); HEMOGLOBIN 13.3 GM/dL (11.7-16.9); LYMPH % 7.5 % (8-40); MCH 30.6 pg (25.7-33.7); MCHC 33.9 g/dl (32.0-35.9); MEAN CELL VOLUME 90.3 fl (80-96); MEAN PLT VOLUME 8.3 fl (7.5-11.1); MONO % 1.7 % (3.8-10.2); NEUT % 90.6 % (42.8-82.8); PLATELET COUNT 199 K/MM3 (134-434); RBC 4.35 M/mm3 (4.00-5.60); RDW 14.9 % (11.9-15.9); WHITE BLOOD COUNT 9.3 K/mm3 (4.0-10.0)
[2017-11-23 07:50] LABS: ANION GAP 7 (8-16); BLOOD UREA NITROGEN 28 mg/dL (7-18); CALCIUM 8.7 mg/dL (8.5-10.1); CHLORIDE 108 mmol/L (98-107); CO2 25 mmol/L (21-32); CREATININE 0.8 mg/dL (0.7-1.3); GLUCOSE,RANDOM 136 mg/dL (74-106); POTASSIUM 4.3 mmol/L (3.5-5.1); SODIUM 140 mmol/L (136-145)
[2017-11-23] MEDS: ASPIRIN COATED 81 MG TABLET.EC PO SCH (09:09)
--- NOTE | 2017-11-23 09:09 | PN ---
Progress Note, Physician Chief Complaint: Feels improved, less SOB - Current Medication List Current Medications: Active Medications Albuterol Sulfate (Ventolin 0.083% Nebulizer Soln -) 1 amp NEB Q4H PRN PRN Reason: SHORT OF BREATH/WHEEZING Aspirin (Ecotrin -) 81 mg PO DAILY [facility] Atorvastatin Calcium (Lipitor -) 40 mg PO HS [facility] Last Admin: 11/22/17 23:18 Dose: 40 mg Budesonide/Formoterol Fumarate (Symbicort 80/4.5mcg -) 2 puff IH BID [facility] Last Admin: 11/22/17 23:18 Dose: 2 puff Cefuroxime Sodium (Zinacef -) 750 mg IM Q8H-IV [facility] Last Admin: 11/23/17 03:50 Dose: 750 mg Clopidogrel Bisulfate (Plavix -) 75 mg PO DAILY [facility] Escitalopram Oxalate (Lexapro -) 10 mg PO DAILY [facility] Methylprednisolone Sodium Succinate (Solu-Medrol -) 40 mg IVPB Q8H-IV [facility] Last Admin: 11/23/17 03:50 Dose: 40 mg Non-Formulary Medication (Ipratropium/Albuterol Sulfate [Combivent Respimat Inhal [place]]) 4 gm IH QID [facility] Tiotropium [place] (Spiriva -) 1 puff IH DAILY [facility] - Objective Vital Signs: Vital Signs Temperature 98.4 F 11/23/17 08:36 Pulse Rate 60 11/23/17 08:36 Respiratory Rate 19 11/23/17 08:36 Blood Pressure 127/65 11/23/17 08:36 O2 Sat by Pulse Oximetry (%) 98 11/23/17 08:36 Constitutional: Well Nourished, No Distress, Anxious HENT: Normocephalic, Drooling, Epistaxis, Hoarseness Neck: Supple, Trachea Midline. No: Decreased ROM, Lymphadenopathy Cardiovascular: Regular Rate and Rhythm, Tachycardia, S1, S2. No: JVD, Gallop Respiratory: Yes: Regular, + Rhonchi, SOB, SOB on Exertion Gastrointestinal: Normal Bowel Sounds, Soft Musculoskeletal: No: Back Pain, Joint Stiffness Extremities: No Calf Tenderness, No Edema, Pulses +, Echymoses + Integumentary: Echymoses areas on both shins and UE Neurological: Yes: Alert, Oriented. No: Aphasia, Asterixis, no motor deficit Labs: CBC, BMP 11/23/17 06:30 11/23/17 06:30 INR, PTT INR 1.28 (0.82-1.09) H 11/22/17 15:21 Problem List - Problems (1) COPD exacerbation Assessment/Plan: Patient present with cough expectoration and SOB failed out patient treatment, on Nebs and feeling improved will cont Inhaled steroids, IV solumedrol, IV ABx F /U sputum aand blood culture Code(s): J44.1 - CHRONIC OBSTRUCTIVE PULMONARY DISEASE W (ACUTE) EXACERBATION (2) Chest pain Assessment/Plan: Atypical cont tylenol F/U serial Ce Code(s): R07.9 - CHEST PAIN, UNSPECIFIED (3) CAD (coronary artery disease) Assessment/Plan: S/P Stent in May 2017 , Stress ECHO -Ve in Jun 2017 , atypical reproducible chest pain R/O ACS Cont ASA, stain S/L NTG PRN,normal serial CE and Cardiology consult Code(s): I25.10 - ATHSCL HEART DISEASE OF [place] CORONARY ARTERY W/O ANG PCTRS Qualifiers: [place] vs. transplanted heart: [place] heart (4) Hyperlipidemia Assessment/Plan: Cont Statin F?u Lipid panel Code(s): E78.5 - HYPERLIPIDEMIA, UNSPECIFIED (5) Hypertension Assessment/Plan: Well Controlled cont Home Meds Code(s): I10 - ESSENTIAL (PRIMARY) HYPERTENSION Qualifiers: (6) Anxiety Assessment/Plan: Cont Home meds Code(s): F41.9 - ANXIETY DISORDER, UNSPECIFIED
[2017-11-23] MEDS: ESCITALOPRAM OXALATE 10 MG TABLET (FP) PO SCH (09:10)
[2017-11-23] MEDS: CLOPIDOGREL BISULFATE 75 MG TABLET (FP) PO SCH (09:10)
[2017-11-23] MEDS ORDERED: TIOTROPIUM BROMIDE 18 MCG CAPSULES IH SCH (10:00)
--- NOTE | 2017-11-23 11:07 | PN ---
Progress Note, Physician History of Present Illness: pulmonary alert,sitting up in bed ,feeling better,dyspnea improving,less congestion - Current Medication List Current Medications: Active Medications Albuterol Sulfate (Ventolin 0.083% Nebulizer Soln -) 1 amp NEB Q4H PRN PRN Reason: SHORT OF BREATH/WHEEZING Aspirin (Ecotrin -) 81 mg PO DAILY [facility] Last Admin: 11/23/17 09:09 Dose: 81 mg Atorvastatin Calcium (Lipitor -) 40 mg PO HS [facility] Last Admin: 11/22/17 23:18 Dose: 40 mg Budesonide/Formoterol Fumarate (Symbicort 80/4.5mcg -) 2 puff IH BID [facility] Last Admin: 11/22/17 23:18 Dose: 2 puff Cefuroxime Sodium (Zinacef -) 750 mg IM Q8H-IV [facility] Last Admin: 11/23/17 03:50 Dose: 750 mg Clopidogrel Bisulfate (Plavix -) 75 mg PO DAILY [facility] Last Admin: 11/23/17 09:10 Dose: 75 mg Escitalopram Oxalate (Lexapro -) 10 mg PO DAILY [facility] Last Admin: 11/23/17 09:10 Dose: 10 mg Methylprednisolone Sodium Succinate (Solu-Medrol -) 40 mg IVPB Q8H-IV [facility] Last Admin: 11/23/17 09:10 Dose: 40 mg Non-Formulary Medication (Ipratropium/Albuterol Sulfate [Combivent Respimat Inhal [place]]) 4 gm IH QID [facility] Tiotropium [place] (Spiriva -) 1 puff IH DAILY [facility] - Objective Vital Signs: Vital Signs Temperature 98.2 F 11/23/17 09:45 Pulse Rate 60 11/23/17 09:45 Respiratory Rate 18 11/23/17 09:45 Blood Pressure 122/64 11/23/17 09:45 O2 Sat by Pulse Oximetry (%) 98 11/23/17 08:36 Constitutional: Yes: Well Nourished, Calm Eyes: Yes: WNL HENT: Yes: WNL Neck: Yes: WNL Cardiovascular: Yes: Regular Rate and Rhythm, S1, S2 Respiratory: Yes: Diminished Gastrointestinal: Yes: Normal Bowel Sounds, Soft Extremities: Yes: WNL Edema: No Labs: CBC, BMP 11/23/17 06:30 11/23/17 06:30 INR, PTT INR 1.28 (0.82-1.09) H 11/22/17 15:21 Problem List - Problems (1) COPD exacerbation Code(s): J44.1 - CHRONIC OBSTRUCTIVE PULMONARY DISEASE W (ACUTE) EXACERBATION (2) Chest pain Code(s): R07.9 - CHEST PAIN, UNSPECIFIED (3) Cough Code(s): R05 - COUGH (4) Hyperlipidemia Code(s): E78.5 - HYPERLIPIDEMIA, UNSPECIFIED (5) Hypertension Code(s): I10 - ESSENTIAL (PRIMARY) HYPERTENSION Qualifiers: (6) Shortness of breath Code(s): R06.02 - SHORTNESS OF BREATH (7) CAD (coronary artery disease) Code(s): I25.10 - ATHSCL HEART DISEASE OF [place] CORONARY ARTERY W/O ANG PCTRS Qualifiers: [place] vs. transplanted heart: [place] heart Assessment/Plan IMP DYSPNEA,CHEST CONGESTION IMPROVING COPD EXACERBATION URI ASHD S/P STENT HLD HTN PLAN TAPER STEROIDS INHALED BRONCHODILATORS O2 ABX SPUTUM C+S DR HEATH Problem List - Problems (1) COPD exacerbation Code(s): J44.1 - CHRONIC OBSTRUCTIVE PULMONARY DISEASE W (ACUTE) EXACERBATION (2) Chest pain Code(s): R07.9 - CHEST PAIN, UNSPECIFIED (3) Cough Code(s): R05 - COUGH (4) Hyperlipidemia Code(s): E78.5 - HYPERLIPIDEMIA, UNSPECIFIED (5) Hypertension Code(s): I10 - ESSENTIAL (PRIMARY) HYPERTENSION Qualifiers: (6) Shortness of breath Code(s): R06.02 - SHORTNESS OF BREATH (7) CAD (coronary artery disease) Code(s): I25.10 - ATHSCL HEART DISEASE OF [place] CORONARY ARTERY W/O ANG PCTRS Qualifiers: [place] vs. transplanted heart: [place]
[2017-11-23] MEDS: BUDESONIDE/FORMETEROL FUMARATE 80/4.5 mcg INHALER IH SCH ×2 (11:30→23:03)
[2017-11-23] MEDS: TIOTROPIUM BROMIDE 18 MCG CAPSULES IH SCH (12:14)
[2017-11-23] MEDS ORDERED: PT OWN MED DRAWER 7, Y5N ONE (16:09)
[2017-11-23] MEDS: ATORVASTATIN CA 40 MG TABLET (FP) PO SCH (23:47)
[2017-11-24] MEDS: methylPREDNISolone NA SUCC 40 MG/1 ML VIAL IVPB SCH (01:31)
[2017-11-24] MEDS: CEFUROXIME NA 750 MG VIAL IM SCH ×2 (01:31→09:59)
[2017-11-24 06:55] LABS: HEMATOCRIT 39.7 % (35.4-49); HEMOGLOBIN 13.4 GM/dL (11.7-16.9); MCH 30.4 pg (25.7-33.7); MCHC 33.7 g/dl (32.0-35.9); MEAN CELL VOLUME 90.3 fl (80-96); MEAN PLT VOLUME 7.9 fl (7.5-11.1); PLATELET COUNT 219 K/MM3 (134-434); RBC 4.39 M/mm3 (4.00-5.60); RDW 14.7 % (11.9-15.9); WHITE BLOOD COUNT 15.6 K/mm3 (4.0-10.0)
[2017-11-24 07:24] LABS: ANION GAP 5 (8-16); BLOOD UREA NITROGEN 34 mg/dL (7-18); CALCIUM 8.6 mg/dL (8.5-10.1); CHLORIDE 107 mmol/L (98-107); CO2 30 mmol/L (21-32); GLUCOSE,RANDOM 132 mg/dL (74-106); POTASSIUM 4.9 mmol/L (3.5-5.1); SODIUM 142 mmol/L (136-145)
[2017-11-24 07:25] LABS: CREATININE 0.9 mg/dL (0.7-1.3)
[2017-11-24 08:42] LABS: PLATELET ESTIMATE NORMAL
--- NOTE | 2017-11-24 08:50 | PN ---
Progress Note, Physician History of Present Illness: pulmonary alert,no distress,-sob,-congestion - Current Medication List Current Medications: Active Medications Albuterol Sulfate (Ventolin 0.083% Nebulizer Soln -) 1 amp NEB Q4H PRN PRN Reason: SHORT OF BREATH/WHEEZING Aspirin (Ecotrin -) 81 mg PO DAILY [facility] Last Admin: 11/23/17 09:09 Dose: 81 mg Atorvastatin Calcium (Lipitor -) 40 mg PO HS [facility] Last Admin: 11/23/17 23:47 Dose: 40 mg Budesonide/Formoterol Fumarate (Symbicort 80/4.5mcg -) 2 puff IH BID [facility] Last Admin: 11/23/17 23:03 Dose: 2 puff Cefuroxime Sodium (Zinacef -) 750 mg IM Q8H-IV [facility] Last Admin: 11/24/17 01:31 Dose: 750 mg Clopidogrel Bisulfate (Plavix -) 75 mg PO DAILY [facility] Last Admin: 11/23/17 09:10 Dose: 75 mg Escitalopram Oxalate (Lexapro -) 10 mg PO DAILY [facility] Last Admin: 11/23/17 09:10 Dose: 10 mg Methylprednisolone Sodium Succinate (Solu-Medrol -) 40 mg IVPB Q8H-IV [facility] Last Admin: 11/24/17 01:31 Dose: 40 mg Non-Formulary Medication (Ipratropium/Albuterol Sulfate [Combivent Respimat Inhal [place]]) 4 gm IH QID [facility] Tiotropium [place] (Spiriva -) 1 puff IH DAILY [facility] Last Admin: 11/23/17 12:14 Dose: 1 puff - Objective Vital Signs: Vital Signs Temperature 97.5 F L 11/24/17 02:00 Pulse Rate 58 L 11/24/17 06:00 Respiratory Rate 25 H 11/24/17 06:00 Blood Pressure 119/45 11/24/17 06:00 O2 Sat by Pulse Oximetry (%) 99 11/23/17 21:00 Constitutional: Yes: Well Nourished, Calm Eyes: Yes: WNL HENT: Yes: WNL Neck: Yes: WNL Cardiovascular: Yes: Regular Rate and Rhythm, S1, S2 Respiratory: Yes: Diminished Gastrointestinal: Yes: Normal Bowel Sounds, Soft Extremities: Yes: WNL Edema: No Labs: CBC, BMP 11/24/17 05:00 11/24/17 05:00 INR, PTT INR 1.28 (0.82-1.09) H 11/22/17 15:21 Problem List - Problems (1) COPD exacerbation Code(s): J44.1 - CHRONIC OBSTRUCTIVE PULMONARY DISEASE W (ACUTE) EXACERBATION (2) Chest pain Code(s): R07.9 - CHEST PAIN, UNSPECIFIED (3) Cough Code(s): R05 - COUGH (4) Hyperlipidemia Code(s): E78.5 - HYPERLIPIDEMIA, UNSPECIFIED (5) Hypertension Code(s): I10 - ESSENTIAL (PRIMARY) HYPERTENSION Qualifiers: (6) Shortness of breath Code(s): R06.02 - SHORTNESS OF BREATH (7) CAD (coronary artery disease) Code(s): I25.10 - ATHSCL HEART DISEASE OF [place] CORONARY ARTERY W/O ANG PCTRS Qualifiers: [place] vs. transplanted heart: [place] heart Assessment/Plan IMP DYSPNEA,CHEST CONGESTION IMPROVING COPD EXACERBATION URI ASHD S/P STENT HLD HTN PLAN PREDNISONE INHALED BRONCHODILATORS O2 ABX DR HEATH Problem List - Problems (1) COPD exacerbation Code(s): J44.1 - CHRONIC OBSTRUCTIVE PULMONARY DISEASE W (ACUTE) EXACERBATION (2) Chest pain Code(s): R07.9 - CHEST PAIN, UNSPECIFIED (3) Cough Code(s): R05 - COUGH (4) Hyperlipidemia Code(s): E78.5 - HYPERLIPIDEMIA, UNSPECIFIED (5) Hypertension Code(s): I10 - ESSENTIAL (PRIMARY) HYPERTENSION Qualifiers: (6) Shortness of breath Code(s): R06.02 - SHORTNESS OF BREATH (7) CAD (coronary artery disease) Code(s): I25.10 - ATHSCL HEART DISEASE OF [place] CORONARY ARTERY W/O ANG PCTRS Qualifiers: [place] vs. transplanted heart: [place] heart
[2017-11-24] MEDS ORDERED: PT OWN MED DRAWER 7, Y5N ONE ×2 (09:26→10:04)
[2017-11-24] MEDS: BUDESONIDE/FORMETEROL FUMARATE 80/4.5 mcg INHALER IH SCH (09:58)
[2017-11-24] MEDS: ASPIRIN COATED 81 MG TABLET.EC PO SCH (09:58)
[2017-11-24] MEDS: ESCITALOPRAM OXALATE 10 MG TABLET (FP) PO SCH (09:58)
[2017-11-24] MEDS: CLOPIDOGREL BISULFATE 75 MG TABLET (FP) PO SCH (09:58)
[2017-11-24] MEDS: TIOTROPIUM BROMIDE 18 MCG CAPSULES IH SCH (09:58)
[2017-11-24] MEDS ORDERED: predniSONE 20 MG TABLET (UD) PO SCH (10:00)
--- NOTE | 2017-11-24 13:58 | DS ---
Physical Examination Vital Signs: Vital Signs Temperature 97.5 F L 11/24/17 02:00 Pulse Rate 58 L 11/24/17 06:00 Respiratory Rate 25 H 11/24/17 06:00 Blood Pressure 119/45 11/24/17 06:00 O2 Sat by Pulse Oximetry (%) 99 11/23/17 21:00 Constitutional: Yes: Well Nourished, No Distress, Anxious HENT: No: Normocephalic, Drooling, Epistaxis, Hoarseness Neck: Yes: Supple, Trachea Midline. No: Decreased ROM, Lymphadenopathy Cardiovascular: Yes: Regular Rate and Rhythm, Tachycardia, S1, S2. No: JVD, Gallop Respiratory: Yes: Regular, Minimal , SOB, SOB on Exertion Gastrointestinal: Yes: Normal Bowel Sounds, Soft Extremities: No: Calf Tendernes, No Edema Peripheral Pulses WNL: Yes Peripheral Pulses: Left Doralis Pedis: 1+, Right Dorsalis Pedis: 1+ Integumentary: Yes: Other (Echymoses areas on both shins and UE) Neurological: Yes: Alert, Oriented. No: Aphasia, [place]ix[place] Motor Strength: WNL, LUE, LLE, RUE, RLE Labs: CBC, BMP 11/24/17 05:00 11/24/17 05:00 Discharge Summary Reason For Visit: CHEST PAIN Current Active Problems Anxiety (Acute) Chest pain (Acute) Hospital Course: 86 year old male with a significant past medical history of COPD on home oxygen , [place] s/p stent 05/2017 who presented to the ED with a several day history of productive cough, clear phlegm and chest pain , patient was admitted in 08/2017 at [place] was treated for COPD exacerbation, recent cardiac w/u including stress ECHO in 06/2017 was reported normal, in the Ed seen and evaluated by Pulmonary consult is being admitted for further evaluation and management. patyient imprtoved on IV sulumedrol and abx, switch to PO meds will Dc Home Condition: Stable - Instructions Referrals: Neeraj Smallwood MD [Staff Physician] - 1 Week Nile Dahl MD [Primary Care Provider] - 1 Week Disposition: HOME - Home Medications Comprehensive Discharge Medication List: Ambulatory Orders Aspirin Coated [Ecotrin -] 81 mg PO DAILY tablet.ec 09/04/17 Atorvastatin Ca [Lipitor] 40 mg PO HS tablet 09/04/17 Budesonide/Formeterol Fumarate [SYMBICORT 80/4.5mcg -] 2 puff IH BID inhaler Clopidogrel Bisulfate [Plavix -] 75 mg PO DAILY tablet 09/04/17 Escitalopram Oxalate [Lexapro -] 10 mg PO DAILY tablet 09/04/17 Ipratropium/Albuterol Sulfate [Combivent Respimat Inhal [place]] 4 gm IH QID #1 aer.w.adap 09/04/17 Tiotropium [place] [Spiriva] 1 puff IH DAILY inh 09/04/17 Budesonide/Formeterol Fumarate [SYMBICORT 80/4.5mcg -] 2 puff IH BID inhaler Cefuroxime Axetil [Ceftin -] 500 mg PO BID 5 Days #10 tablet 11/24/17 predniSONE [Deltasone -] 60 mg PO DAILY 7 Days #7 tablet 11/24/17
[2017-11-24 14:36] VITALS: BP 132/58; PULSE 59; TEMP 98.4
[2017-11-24] MEDS ORDERED: CEFUROXIME AXETIL 500 MG TABLET PO SCH (22:00)
--- NOTE | 2017-11-24 22:26 | EKG ---
Test Reason : Blood Pressure : / mmHG Vent. Rate : 090 BPM Atrial Rate : 090 BPM P-R Int : 146 ms QRS Dur : 090 ms QT Int : 362 ms P-R-T Axes : 071 -56 062 degrees QTc Int : 442 ms NORMAL SINUS RHYTHM LEFT AXIS DEVIATION ABNORMAL ECG WHEN COMPARED WITH ECG OF 03-SEP-2017 09:16, NO SIGNIFICANT CHANGE WAS FOUND Confirmed by KEVIN SEVERINO MD ([id number]) on 11/24/2017 10:26:45 PM Referred By: Confirmed By:KEVIN SEVERINO MD
== END 2017-11-24 15:00 | disposition home or self-care (01) ==
LOC: JER 14:02 → JERBED 17:58 → J2W 11-23 08:13
PROVIDERS: ADMIT Internal Medicine; ATTEND Internal Medicine
PROC: 3E0333Z Introduction of Anti-inflammatory into Peripheral Vein, Percutaneous Approach (ICD-10-PCS; principal; 2017-11-22)
PROC: 3E033GC Introduction of Other Therapeutic Substance into Peripheral Vein, Percutaneous Approach (ICD-10-PCS; 2017-11-22)
PROC: 3E01329 Introduction of Other Anti-infective into Subcutaneous Tissue, Percutaneous Approach (ICD-10-PCS; 2017-11-22)
PROC: 3E0F7GC Introduction of Other Therapeutic Substance into Respiratory Tract, Via Natural or Artificial Opening (ICD-10-PCS; 2017-11-22)
DX: J44.1 Chronic obstructive pulmonary disease with (acute) exacerbation (principal); R07.9 Chest pain, unspecified; R06.00 Dyspnea, unspecified; J06.9 Acute upper respiratory infection, unspecified; I10 Essential (primary) hypertension; I25.10 Atherosclerotic heart disease of native coronary artery without angina pectoris; I25.2 Old myocardial infarction; E78.5 Hyperlipidemia, unspecified; F41.9 Anxiety disorder, unspecified; Z85.118 Personal history of other malignant neoplasm of bronchus and lung; Z87.891 Personal history of nicotine dependence; Z99.81 Dependence on supplemental oxygen; Z79.82 Long term (current) use of aspirin; Z95.5 Presence of coronary angioplasty implant and graft; Z91.013 Allergy to seafood
CPT/HCPCS: 36415; 71045-TC-FY; 80048; 80053; 82550; 83735; 84484; 85025; 85610; 87040; 93005; 93010; 94640; 96365; 96366; 96372; 96375; 96376; 99285-25; G0378; J7620

== ENCOUNTER 2018-02-28 12:28 | Inpatient (IN) | payer OTHER, BC ==
--- NOTE | 2018-02-28 13:09 | PDOC ---
Attending Attestation - HPI HPI: 02/28/18 13:34 The patient is a 87 year old male with a significant past medical history of bronchitis, COPD on albuterol nebs and 2L of home oxygen, [place] s/p stent 05/2017 on pradaxa, PNA two weeks ago and was prescribed Augmentin who presents to the ER with shortness of breath, fatigue, and cough productive of yellow phlegm for the past two days. Patient had pneumonia two weeks ago and reports his symptoms are similar. Patient notes that Dr. Smallwood prescribed him Levaquin yesterday and has taken one dose. The patient endorses leg edema but denies numbness/tingling/weakness, chest pain , headache, and dizziness. Denies fever, chills, nausea, vomit, diarrhea, and constipation. Denies dysuria, frequency, urgency, and hematuria. Allergies: NKA Past surgical history: Cardiac Cath 2014, stents 2016 Social history: No reported alcohol, drug, or cigarette use. PCP: Dr. Dahl <Dariela Nielsen - Last Filed: 02/28/18 13:38> - Resident Resident Name: Dacia Lopez - ED Attending Attestation I have performed the following: I have examined & evaluated the patient, The case was reviewed & discussed with the resident, I agree w/resident's findings & plan, Exceptions are as noted - Physicial Exam PE: GENERAL: Awake, alert, and fully oriented, in no acute distress HEAD: No signs of trauma EYES: PERRLA, EOMI, sclera anicteric, conjunctiva clear ENT: Auricles normal inspection, hearing grossly normal, nares patent, oropharynx clear without exudates. Moist mucosa NECK: Normal ROM, supple, no lymphadenopathy, JVD, or masses LUNGS: Dec breath sounds L lung ferrer diffusely compared with R lung ferrer. No wheezes, and no crackles. Slightly prolonged expiratory phase. HEART: Regular rate and rhythm, normal S1 and S2, no murmurs, rubs or gallops ABDOMEN: Soft, nontender, normoactive bowel sounds. No guarding, no rebound. No masses EXTREMITIES: Normal range of motion. Trace edema BLE with stasis changes. No clubbing or cyanosis. No cords, erythema, or tenderness NEUROLOGICAL: Cranial nerves II through XII grossly intact. Normal speech, normal gait SKIN: Warm, Dry, normal turgor, no rashes or lesions noted. - Medical Decision Making Pt with recent history pna, treated with augmentin, but now symptoms returning. He has history of COPD, other medical comorbidities. Will admit for abx. <Marlee Smith - Last Filed: 02/28/18 17:22>
--- NOTE | 2018-02-28 13:26 | PDOC ---
History of Present Illness - General Chief Complaint: Shortness of Breath Stated Complaint: SOB Time Seen by Provider: 02/28/18 12:59 History Source: Patient Exam Limitations: No Limitations - History of Present Illness Initial Comments: 02/28/18 13:21 This is an 87 YOM with h/o recurrent PNA (seen in the ED two weeks ago and placed on Augmentin), bronchitis, COPD on Albuterol neb treatments on prn home O2 at 2 LMP, CAD s/p NSTEMI last year with stent placement on Pradaxa now, HTN, HLD, and UTI who p/w two days worsening malaise, cough productive of yellow sputum, subjective fever, chills, leg swelling, and SOB worsened from his baseline. He denies n/v/d/c, numbness, tingling, weakness, chest pain, abdominal pain, back pain, or other new symptoms. Dr. Smallwood called in a Rx for Levaquin for him yesterday and the patient has taken one dose. Past History - Past Medical History Allergies/Adverse Reactions: Allergies Allergy/AdvReac Type Severity Reaction Status Date / Time No Known Drug Allergies Allergy Verified 02/03/18 13:32 shrimp Allergy Unknown lip Uncoded 02/03/18 13:32 swelling Home Medications: Ambulatory Orders Aspirin Coated [Ecotrin -] 81 mg PO DAILY tablet.ec 09/04/17 Atorvastatin Ca [Lipitor] 40 mg PO HS tablet 09/04/17 Budesonide/Formeterol Fumarate [SYMBICORT 80/4.5mcg -] 2 puff IH BID inhaler Clopidogrel Bisulfate [Plavix -] 75 mg PO DAILY tablet 09/04/17 Escitalopram Oxalate [Lexapro -] 10 mg PO DAILY tablet 09/04/17 Ipratropium/Albuterol Sulfate [Combivent Respimat 20-100 Mcg] 4 gm IH QID #1 aer.w.adap 09/04/17 Tiotropium [place] [Spiriva] 1 puff IH DAILY inh 09/04/17 Budesonide/Formeterol Fumarate [SYMBICORT 80/4.5mcg -] 2 puff IH BID inhaler Cefuroxime Axetil [Ceftin -] 500 mg PO BID 5 Days #10 tablet 11/24/17 predniSONE [Deltasone -] 60 mg PO DAILY 7 Days #7 tablet 11/24/17 Amoxicillin/Potassium Clav [Augmentin 875-125 Tablet] 1 each PO BID #10 tablet 02/03/18 Prednisone [Deltasone] 20 mg PO DAILY #5 tablet 02/03/18 Anemia: No Asthma: No Cancer: Yes (Lung Nodule R) Cardiac Disorders: Yes (Chest Pain, [place] with stents) CVA: No COPD: Yes CHF: No DVT: No Dementia: No Diabetes: No Dialysis: No GI Disorders: No Disorders: No HTN: Yes Hypercholesterolemia: Yes Kidney Stones: No Liver Disease: No Psychiatric Problems: No Seizures: No Thyroid Disease: No Lung CA: No - Surgical History Abdominal Surgery: No Appendectomy: No Cardiac Surgery: Yes (Cardiac Cath 2014, stents 2016) Cholecystectomy: No Gastric Stapling: No GI Surgery: No Lung Surgery: No Neurologic Surgery: No Orthopedic Surgery: No - Immunization History Td Vaccination: Yes TDAP Vaccination: Yes Immunization Up to Date: Yes - Suicide/Smoking/Psychosocial Hx Smoking Status: Yes Smoking History: Never smoked Have you smoked in the past 12 months: No Number of Cigarettes Smoked Daily: 0 If you are a former smoker, when did you quit?: 40 years ago Cigars Per Day: 0 Information on smoking cessation initiated: No Hx Alcohol Use: No Drug/Substance Use Hx: No Substance Use Type: None Hx Substance Use Treatment: No Respiratory Specific PMHX - Complaint Specific PMHX Pneumonia: Yes Review of Systems - Review of Systems Able to Perform ROS?: Yes Constitutional: Yes: Chills, Fever (subjective), Malaise, Weakness. No: Unexplained wgt Loss HEENTM: No: Nose Congestion, Throat Pain Respiratory: Yes: Cough, Shortness of Breath, Productive cough Cardiac (ROS): Yes: Edema. No: Chest Pain, Palpitations ABD/GI: No: Constipated, Diarrhea, Nausea, Vomiting : No: Burning, Dysuria Musculoskeletal: No: Back Pain, Neck Pain Integumentary: Yes: Bruising. No: Rash Neurological: No: Headache, Numbness, Tingling, Weakness, Dizziness Endocrine: No: Unexplained Weight Gain, Unexplained Weight Loss *Physical Exam - Vital Signs Last Vital Signs Temp Pulse Resp BP Pulse Ox 100.3 F H 97 H 24 122/96 91 L 02/28/18 12:32 02/28/18 12:32 02/28/18 12:32 02/28/18 12:32 02/28/18 12:32 - Physical Exam General Appearance: Yes: Nourished, Appropriately Dressed, Mild Distress, Other (nontoxic appearing elderly male who is a bit tachypneic, answering in 4-5 word sentences, occasional wet cough) HEENT: positive: EOMI, Normal Voice, Hearing Grossly Normal. negative: Scleral Icterus (R), Scleral Icterus (L), Nasal Congestion Neck: positive: Trachea midline, Supple. negative: Tender, Rigid Respiratory/Chest: positive: Decreased Breath Sounds (especially left basilar). negative: Crackles, Rhonchi, Stridor, Wheezing Cardiovascular: positive: Regular Rhythm, Regular Rate, S1, S2, Edema (2+ pitting BLE with left>right), Murmur (2/6 systolic), Other (a bit distant heart sounds). negative: JVD Gastrointestinal/Abdominal: positive: Normal Bowel Sounds, Flat, Soft. negative : Tender, Organomegaly, Pulsatile Mass, Guarding Musculoskeletal: positive: Normal Inspection. negative: Decreased Range of Motion, Vertebral Tenderness Extremity: positive: Normal Capillary Refill, Normal Inspection, Normal Range of Motion. negative: Tender, Cyanosis Integumentary: positive: Normal Color, Dry, Warm. 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 Initial Vital Signs Temp Pulse Resp BP Pulse Ox 100.3 F H 97 H 24 122/96 91 L 02/28/18 12:32 02/28/18 12:32 02/28/18 12:32 02/28/18 12:32 02/28/18 12:32 Exam: As noted in Physical Exam section. DDX IBNLT: PNA, bronchitis, CHF exacerbation, COPD exacerbation, asthma, other lung disease, viral URI (e.g. influenza), laryngitis, tracheitis, etc. W/U ordered: CXR EKG CBCD CMP Mg Phos Blood gas EKG CXR TX ordered: Ofirmev (will hold off fluids at this time as patient has BLE edema , c/f CHF, maintaining blood pressure well) EKG: Reviewed; results as noted in ECG Review section. RAD/CHEST X-RAY PORTABLE* Chest: Sepsis Since the prior study of 02/03/2018, again noted is some chronic lung scarring with apical lordotic projection, unfolded aorta and normal heart. The angles are sharp and the soft tissues are intact. An acute chest process is not seen. Is though an ill-defined density seen by the anterior aspect of the right second and third ribs which should be further evaluated. This is difficult to see on prior studies. For more complete evaluation, further imaging with CT may be of help. Impression: Bilateral lung scarring. Ill-defined density right upper lung field. Suggest CT for further evaluation. Vital Signs Temperature 99.6 F 02/28/18 16:01 Pulse Rate 64 02/28/18 16:01 Respiratory Rate 22 02/28/18 16:01 Blood Pressure 152/73 02/28/18 16:01 O2 Sat by Pulse Oximetry (%) 96 02/28/18 16:01 Laboratory Tests 02/28/18 02/28/18 02/28/18 15:07 15:07 15:07 WBC 9.9 RBC 4.66 Hgb 14.4 Hct 41.9 MCV 89.8 MCH 31.0 MCHC 34.5 RDW 14.6 Plt Count 196 MPV 8.2 Absolute Neuts (auto) 8.5 H Neutrophils % 86.0 H Lymphocytes % 9.2 Monocytes % 3.9 Eosinophils % 0.6 Basophils % 0.3 Nucleated RBC % 0 PT with INR 12.80 INR 1.13 H PTT (Actin FS) 28.0 VBG pH 7.40 POC VBG pCO2 46.2 POC VBG pO2 30.4 D Mixed VBG HCO3 28.0 H Sodium Potassium Chloride Carbon Dioxide Anion Gap BUN Creatinine Creat Clearance w eGFR Random Glucose Lactic Acid Calcium Total Bilirubin AST ALT Alkaline Phosphatase Creatine Kinase CK-MB (CK-2) B-Natriuretic Peptide Total Protein Albumin Blood Type Antibody Screen 02/28/18 02/28/18 02/28/18 15:07 15:07 15:07 WBC RBC Hgb Hct MCV MCH MCHC RDW Plt Count MPV Absolute Neuts (auto) Neutrophils % Lymphocytes % Monocytes % Eosinophils % Basophils % Nucleated RBC % PT with INR INR PTT (Actin FS) VBG pH POC VBG pCO2 POC VBG pO2 Mixed VBG HCO3 Sodium 144 Potassium 4.3 Chloride 109 H Carbon Dioxide 29 Anion Gap 6 L BUN 29 H Creatinine 0.9 Creat Clearance w eGFR > 60 Random Glucose 91 Lactic Acid 0.9 Calcium 8.8 Total Bilirubin 0.6 AST 24 ALT 22 Alkaline Phosphatase 53 Creatine Kinase 99 CK-MB (CK-2) 3.34 B-Natriuretic Peptide Total Protein 6.1 L Albumin 3.6 Blood Type A POSITIVE Antibody Screen Negative 02/28/18 15:07 WBC RBC Hgb Hct MCV MCH MCHC RDW Plt Count MPV Absolute Neuts (auto) Neutrophils % Lymphocytes % Monocytes % Eosinophils % Basophils % Nucleated RBC % PT with INR INR PTT (Actin FS) VBG pH POC VBG pCO2 POC VBG pO2 Mixed VBG HCO3 Sodium Potassium Chloride Carbon Dioxide Anion Gap BUN Creatinine Creat Clearance w eGFR Random Glucose Lactic Acid Calcium Total Bilirubin AST ALT Alkaline Phosphatase Creatine Kinase CK-MB (CK-2) B-Natriuretic Peptide 251.77 Total Protein Albumin Blood Type Antibody Screen CT/CHEST CT WITHOUT CONTRAST HISTORY PROVIDED: Rule out right upper lobe mass TECHNIQUE: Sequential axial images were obtained from the thoracic inlet through the domes of the diaphragm. The lung ferrer are hyperaerated with increased interstitial markings and extensive bullous changes consistent with moderately severe COPD. There is a spiculated mass within the right upper lobe which measures approximately 1.6 x 1.2 cm. This mass had been noted on prior studies without significant change. An additional, somewhat cylindrical density is seen within the left upper lobe, also unchanged since multiple prior studies. There is a 6 mm nodule within the left lower lobe, also unchanged. No new mass lesions, areas of acute consolidation or pleural effusions are identified. Examination of the mediastinum demonstrates small lymph nodes scattered throughout the mediastinal chains. The size of these nodes has slightly decreased since 02/17/2017. There is no evidence of mediastinal masses, fluid collections or lymphadenopathy. The heart is not enlarged. Evaluation of the upper abdomen demonstrates no acute process with there is a large parapelvic cyst within the right kidney. There is no evidence of acute bony abnormalities. IMPRESSION: Moderately severe COPD with stable, bilateral upper lobe masses since 02/11/2017. No acute pathology within the chest. Please see above discussion. ADMIT Patient failed outpatient treatment for CAP. The Pt is unsafe for discharge at this time. They require further hospital observation, workup, and treatment. Microblog sent to [facility] for admission. Blank Decision to Admit order placed 02/28/18 18:[address] Zhou; [facility] not admitting for Dr. Roberto Carlos jimenez. 02/28/18 18:[address] Conde, admitting for Dr. Azevedo's group barbara. Spoke with Dr. Conde, he will place orders, patient going to IP Med/Surg. Dr. Conde will place admission orders; much appreciated. Decision to Admit order updated with Dr. Azevedo's name. *DC/Admit/Observation/Transfer Diagnosis at time of Disposition: COPD exacerbation, Leg edema Pneumonia Qualifiers: Pneumonia type: due to unspecified organism Laterality: right Lung location: lower lobe of lung Qualified Code(s): J18.1 - Lobar pneumonia, unspecified organism - Discharge Dispostion Condition at time of disposition: Guarded Decision to Admit order: Yes - Referrals - Patient Instructions - Post Discharge Activity
[2018-02-28] MEDS ORDERED: ALBUTEROL SO4 2.5/IPRATROPIUM 0.5 INH SOL 3 ML VIAL.NEB. NEB ONE ×4 (13:27→19:24)
[2018-02-28] MEDS ORDERED: ACETAMINOPHEN 1000 MG/100 ML VIAL (NON FORMULARY) IVPB ONE (13:31)
[2018-02-28 15:49] LABS: BASO % 0.3 % (0-2.0); EOS % 0.6 % (0-4.5); HEMATOCRIT 41.9 % (35.4-49); HEMOGLOBIN 14.4 GM/dL (11.7-16.9); LYMPH % 9.2 % (8-40); MCHC 34.5 g/dl (32.0-35.9); MEAN CELL VOLUME 89.8 fl (80-96); MEAN PLT VOLUME 8.2 fl (7.5-11.1); MONO % 3.9 % (3.8-10.2); PLATELET COUNT 196 K/MM3 (134-434); RBC 4.66 M/mm3 (4.00-5.60); RDW 14.6 % (11.9-15.9); WHITE BLOOD COUNT 9.9 K/mm3 (4.0-10.0)
[2018-02-28 15:51] LABS: VENOUS PC02 46.2 mmHg (38-52); VENOUS PH 7.4 (7.32-7.42); VENOUS PO2 30.4 mmHg (28-48)
[2018-02-28] MEDS ORDERED: ACETAMINOPHEN INJECTION 100 ML IVPB ONE (15:52)
[2018-02-28 16:02] LABS: INR 1.13 (0.83-1.09); PROTHROMBIN TIME (PATIENT) 12.8 SEC (9.7-13.0)
[2018-02-28 16:49] LABS: ALBUMIN 3.6 g/dl (3.4-5.0); ANION GAP 6 MMOL/L (8-16); BILIRUBIN,TOTAL 0.6 mg/dL (0.2-1.0); BLOOD UREA NITROGEN 29 mg/dL (7-18); CALCIUM 8.8 mg/dL (8.5-10.1); CHLORIDE 109 mmol/L (98-107); CO2 29 mmol/L (21-32); CREATININE 0.9 mg/dL (0.7-1.3); GLUCOSE,RANDOM 91 mg/dL (74-106); POTASSIUM 4.3 mmol/L (3.5-5.1); SGOT/AST 24 U/L (15-37); SODIUM 144 mmol/L (136-145); TOT PROT 6.1 g/dl (6.4-8.2)
[2018-02-28 16:52] LABS: ALK PHOS 53 U/L (45-117); SGPT/ALT 22 U/L (12-78)
[2018-02-28] MEDS ORDERED: SODIUM CHLORIDE 0.9% 500 ML INFUS.BAG IV ONE (18:22)
[2018-02-28] MEDS: ALBUTEROL SO4 2.5/IPRATROPIUM 0.5 INH SOL 3 ML VIAL.NEB. NEB SCH ×4 (18:56→20:05)
[2018-02-28] MEDS ORDERED: ALBUTEROL SO4 0.083% IH SOL 2.5 MG/3 ML VIAL.NEB. NEB PRN (19:01)
[2018-02-28 19:12] LABS: URINE APPEARANCE SLCLOUDY; URINE BILIRUBIN NEGATIVE (<2.0 mg/dL); URINE COLOR YELLOW; URINE GLUCOSE (UA) NEGATIVE (NEGATIVE); URINE KETONE NEGATIVE (NEGATIVE); URINE NITRITE NEGATIVE (NEGATIVE); URINE PROTEIN NEGATIVE (NEGATIVE); URINE UROBILINOGEN NEGATIVE mg/dL (0.2-1.0)
[2018-02-28] MEDS: methylPREDNISolone NA SUCC 125 MG/2 ML VIAL IVPB SCH (19:21)
[2018-02-28] MEDS ORDERED: methylPREDNISolone NA SUCC 40 MG/1 ML VIAL ONE (19:25)
[2018-02-28 20:04] LABS: URINE LEUK ESTERASE 3+ (NEGATIVE)
[2018-02-28 20:25] LABS: URINE MUCUS RARE
--- NOTE | 2018-02-28 20:35 | HP ---
Admitting History and Physical - Admission Chief Complaint: weakness, shortness of breath History of Present Illness: 87 yo male, h/o advanced COPD, presents from home after attempts at PO abx, but no improvement. CXR showed pneumonia, so now admitted for further treatment. Feels a little better now after getting solumedrol and breathing treatments. No N/V, no diarrhea. History Source: Patient, Medical Record Limitations to Obtaining History: No Limitations - Past Medical History Cardiovascular: Yes: HTN, Hyperlipdemia. No: AFIB Pulmonary: Yes: COPD, O2 Dependent, Pneumonia. No: Previously Intubated Gastrointestinal: Yes: Constipation Renal/: Yes: BPH Psych: Yes: Anxiety Musculoskeletal: Yes: Osteoarthritis ENT: Yes: Sinusitis - Past Surgical History Past Surgical History: Yes: Cataract Removal (bilateral) - Smoking History Smoking history: Never smoked Have you smoked in the past 12 months: No Aproximately how many cigarettes per day: 0 If you are a former smoker, when did you quit?: 40 years ago - Alcohol/Substance Use Hx Alcohol Use: No History of Substance Use: reports: None - Social History ADL: Independent Occupation: retired History of Recent Travel: No Home Medications - Allergies Allergies/Adverse Reactions: Allergies Allergy/AdvReac Type Severity Reaction Status Date / Time No Known Drug Allergies Allergy Verified 02/03/18 13:32 shrimp Allergy Unknown lip Uncoded 02/03/18 13:32 swelling - Home Medications Home Medications: Ambulatory Orders Aspirin Coated [Ecotrin -] 81 mg PO DAILY tablet.ec 09/04/17 Atorvastatin Ca [Lipitor] 40 mg PO HS tablet 09/04/17 Budesonide/Formeterol Fumarate [SYMBICORT 80/4.5mcg -] 2 puff IH BID inhaler Clopidogrel Bisulfate [Plavix -] 75 mg PO DAILY tablet 09/04/17 Escitalopram Oxalate [Lexapro -] 10 mg PO DAILY tablet 09/04/17 Ipratropium/Albuterol Sulfate [Combivent Respimat 20-100 Mcg] 4 gm IH QID #1 aer.w.adap 09/04/17 Tiotropium [place] [Spiriva] 1 puff IH DAILY inh 09/04/17 Budesonide/Formeterol Fumarate [SYMBICORT 80/4.5mcg -] 2 puff IH BID inhaler Cefuroxime Axetil [Ceftin -] 500 mg PO BID 5 Days #10 tablet 11/24/17 predniSONE [Deltasone -] 60 mg PO DAILY 7 Days #7 tablet 11/24/17 Amoxicillin/Potassium Clav [Augmentin 875-125 Tablet] 1 each PO BID #10 tablet 02/03/18 Prednisone [Deltasone] 20 mg PO DAILY #5 tablet 02/03/18 Family Disease History - Family Disease History Family Disease History: Respiratory: Father, Other: Mother (sinus issues) Review of Systems - Review of Systems Constitutional: reports: Lethargy, Weakness Eyes: reports: No Symptoms HENT: denies: Difficult Swallowing, Epistaxis, Nasal Congestion Cardiovascular: denies: Chest Pain, Palpitations Respiratory: reports: Cough, SOB. denies: Hemoptysis Gastrointestinal: denies: Abdominal Pain, Constipation, Diarrhea, Melena, Nausea , Vomiting Genitourinary: denies: Burning, Discharge, Dysuria Musculoskeletal: denies: Back Pain, Joint Swelling Neurological: denies: Change in LOC, Syncope Physical Examination Vital Signs: Vital Signs Temperature 99.6 F 02/28/18 16:01 Pulse Rate 68 02/28/18 20:12 Respiratory Rate 18 02/28/18 20:12 Blood Pressure 111/74 02/28/18 20:12 O2 Sat by Pulse Oximetry (%) 96 02/28/18 20:12 Constitutional: Yes: Well Nourished, No Distress, Calm Eyes: Yes: Conjunctiva Clear, EOM Intact, PERRL HENT: Yes: Atraumatic, Normocephalic Neck: Yes: Supple, Trachea Midline Cardiovascular: Yes: Regular Rate and Rhythm, S1, S2. No: Murmur Respiratory: Yes: Regular, Diminished (bilaterally) Gastrointestinal: Yes: Normal Bowel Sounds, Soft. No: Distention, Tenderness Edema: No Neurological: Yes: Alert, Oriented, Tremors (bilateral hands (s/p breathing treatment)) Psychiatric: Yes: Alert, Oriented Labs: CBC, BMP 02/28/18 15:07 02/28/18 15:07 Imaging - Results Chest X-ray: Report Reviewed (right upper lobe density) Cat Scan: Report Reviewed (RUL mass (unchanged from prior), severe COPD changes) Problem List - Problems (1) Pneumonia Assessment/Plan: -start ceftriazxone and zithromax Code(s): J18.9 - PNEUMONIA, UNSPECIFIED ORGANISM Qualifiers: Pneumonia type: due to unspecified organism Laterality: right Lung location: lower lobe of lung Qualified Code(s): J18.1 - Lobar pneumonia, unspecified organism (2) COPD exacerbation Assessment/Plan: -start solumedrol, O2, albuterol neb, cont spiriva, cont symbicort -pulm eval Code(s): J44.1 - CHRONIC OBSTRUCTIVE PULMONARY DISEASE W (ACUTE) EXACERBATION (3) Hyperlipidemia Assessment/Plan: -cont statin Code(s): E78.5 - HYPERLIPIDEMIA, UNSPECIFIED (4) Anxiety Assessment/Plan: -cont Lexapro Code(s): F41.9 - ANXIETY DISORDER, UNSPECIFIED
[2018-02-28] MEDS: ALBUTEROL SO4 0.083% IH SOL 2.5 MG/3 ML VIAL.NEB. NEB SCH (22:03)
[2018-02-28 23:51] VITALS: BMI 23.6
[2018-02-28] MEDS: HEPARIN NA (PORCINE) 5,000 UNITS/ML 1ML VIAL SQ SCH (23:51)
[2018-02-28] MEDS: BUDESONIDE/FORMETEROL FUMARATE 80/4.5 mcg INHALER IH SCH (23:51)
[2018-02-28] MEDS: ATORVASTATIN CA 40 MG TABLET (FP) PO SCH (23:51)
[2018-03-01] MEDS: methylPREDNISolone NA SUCC 125 MG/2 ML VIAL IVPB SCH ×3 (02:04→17:30)
[2018-03-01 07:39] LABS: BASO % 0.2 % (0-2.0); HEMATOCRIT 41.5 % (35.4-49); HEMOGLOBIN 13.8 GM/dL (11.7-16.9); LYMPH % 4.3 % (8-40); MCH 30.1 pg (25.7-33.7); MCHC 33.3 g/dl (32.0-35.9); MEAN CELL VOLUME 90.3 fl (80-96); MEAN PLT VOLUME 7.9 fl (7.5-11.1); MONO % 0.4 % (3.8-10.2); NEUT % 95.1 % (42.8-82.8); PLATELET COUNT 189 K/MM3 (134-434); RDW 14.9 % (11.9-15.9); WHITE BLOOD COUNT 11.3 K/mm3 (4.0-10.0)
[2018-03-01 08:05] LABS: ALBUMIN 3.5 g/dl (3.4-5.0); ALK PHOS 51 U/L (45-117); ANION GAP 12 MMOL/L (8-16); BILIRUBIN,TOTAL 0.6 mg/dL (0.2-1.0); BLOOD UREA NITROGEN 27 mg/dL (7-18); CALCIUM 8.7 mg/dL (8.5-10.1); CHLORIDE 109 mmol/L (98-107); CO2 23 mmol/L (21-32); CREATININE 1.1 mg/dL (0.7-1.3); GLUCOSE,RANDOM 139 mg/dL (74-106); SGOT/AST 19 U/L (15-37); SGPT/ALT 21 U/L (12-78); SODIUM 144 mmol/L (136-145); TOT PROT 6.2 g/dl (6.4-8.2)
[2018-03-01] MEDS: ALBUTEROL SO4 0.083% IH SOL 2.5 MG/3 ML VIAL.NEB. NEB SCH ×4 (08:40→20:05)
[2018-03-01 09:21] LABS: PLATELET ESTIMATE ADEQUATE
--- NOTE | 2018-03-01 10:25 | PN ---
Progress Note, Physician History of Present Illness: Patient feeling nauseous this mornign after eating breakfast. Vomited up food, now with some clear emesis. No stomach pain currently. Breathing has been feeling a little better this morning. - Current Medication List Current Medications: Active Medications Albuterol Sulfate (Ventolin 0.083% Nebulizer Soln -) 1 amp NEB RQID [facility] Last Admin: 03/01/18 08:40 Dose: Not Given Albuterol Sulfate (Ventolin 0.083% Nebulizer Soln -) 1 amp NEB Q4H PRN PRN Reason: SHORT OF BREATH/WHEEZING Aspirin (Ecotrin -) 81 mg PO DAILY [facility] Atorvastatin Calcium (Lipitor -) 40 mg PO HS [facility] Last Admin: 02/28/18 23:51 Dose: 40 mg Budesonide/Formoterol Fumarate (Symbicort 80/4.5mcg -) 2 puff IH BID [facility] Last Admin: 02/28/18 23:51 Dose: 2 puff Clopidogrel Bisulfate (Plavix -) 75 mg PO DAILY [facility] Escitalopram Oxalate (Lexapro -) 10 mg PO DAILY [facility] Heparin Sodium (Porcine) (Heparin -) 5,000 unit SQ BID [facility] Last Admin: 02/28/18 23:51 Dose: Not Given Azithromycin 500 mg/ Dextrose 250 mls @ 250 mls/hr IVPB DAILY [facility] Ceftriaxone Sodium 1 gm/ (Dextrose) 50 mls @ 100 mls/hr IVPB DAILY [facility]; Protocol Methylprednisolone Sodium Succinate (Solu-Medrol -) 80 mg IVPB Q8H-IV [facility] Last Admin: 03/01/18 02:04 Dose: 80 mg Ondansetron HCl (Zofran Injection) 8 mg IVPB Q6H PRN PRN Reason: NAUSEA Pantoprazole Sodium (Protonix -) 40 mg PO DAILY [facility] Tiotropium [place] (Spiriva Respimat) 2 puff IH DAILY [facility] - Objective Vital Signs: Vital Signs Temperature 97.6 F 03/01/18 05:48 Pulse Rate 77 03/01/18 05:48 Respiratory Rate 20 03/01/18 05:48 Blood Pressure 123/71 03/01/18 05:48 O2 Sat by Pulse Oximetry (%) 98 02/28/18 22:40 Constitutional: Yes: No Distress, Calm Neck: Yes: Supple, Trachea Midline Cardiovascular: Yes: Regular Rate and Rhythm, S1, S2. No: Murmur Respiratory: Yes: Regular, Diminished (bilaterally, with increased expiratory phase) Gastrointestinal: Yes: Normal Bowel Sounds, Soft. No: Distention, Tenderness Edema: No Labs: CBC, BMP 03/01/18 06:00 03/01/18 06:00 INR, PTT INR 1.13 (0.83-1.09) H 02/28/18 15:07 Problem List - Problems (1) Pneumonia Code(s): J18.9 - PNEUMONIA, UNSPECIFIED ORGANISM Qualifiers: Pneumonia type: due to unspecified organism Laterality: right Lung location: lower lobe of lung Qualified Code(s): J18.1 - Lobar pneumonia, unspecified organism (2) COPD exacerbation Code(s): J44.1 - CHRONIC OBSTRUCTIVE PULMONARY DISEASE W (ACUTE) EXACERBATION (3) Hyperlipidemia Code(s): E78.5 - HYPERLIPIDEMIA, UNSPECIFIED (4) Anxiety Code(s): F41.9 - ANXIETY DISORDER, UNSPECIFIED Assessment/Plan Current Active Problems COPD exacerbation (Acute) Pneumonia (Acute) nausea hyperlipidemia anxiety -nausea due to gastritis from steroids? -start pantoprazole, prn zofran -cont breathing treatments, abx, O2
[2018-03-01] MEDS ORDERED: PT OWN MED DRAWER 7, Y5N ONE ×3 (10:55→12:27)
[2018-03-01] MEDS ORDERED: cefTRIAXone SODIUM 1 GM VIAL ONE (10:55)
[2018-03-01] MEDS ORDERED: DEXTROSE 5%-WATER - 50 ML IVPB ONE (10:56)
[2018-03-01] MEDS: ONDANSETRON 4 MG/2 ML VIAL IVPB PRN ×2 (11:14→17:56)
[2018-03-01] MEDS: CEFTRIAXONE 1 GM in DEXTROSE 5%-WATER - 50 ML IVPB SCH (11:52)
[2018-03-01] MEDS: HEPARIN NA (PORCINE) 5,000 UNITS/ML 1ML VIAL SQ SCH ×2 (11:52→21:09)
[2018-03-01] MEDS: TIOTROPIUM BROMIDE 2.5 MCG (SPIRIVA) RESPIMAT INHALER IH SCH (12:01)
[2018-03-01] MEDS: BUDESONIDE/FORMETEROL FUMARATE 80/4.5 mcg INHALER IH SCH ×2 (12:01→21:09)
[2018-03-01] MEDS: CLOPIDOGREL BISULFATE 75 MG TABLET (FP) PO SCH (12:02)
[2018-03-01] MEDS: ASPIRIN COATED 81 MG TABLET.EC PO SCH (12:02)
[2018-03-01] MEDS: ESCITALOPRAM OXALATE 10 MG TABLET (FP) PO SCH (12:02)
[2018-03-01] MEDS: PANTOPRAZOLE 40 MG TABLET (FP) PO SCH (12:02)
--- NOTE | 2018-03-01 12:32 | CON.PULM ---
Consult Consult Specialty:: PULMONARY Referred by:: PRADIP Reason for Consultation:: COPD - History of Present Illness Chief Complaint: SHANNON/COUGH/WHEEZE History of Present Illness: The patient is a 87 year old male with a significant past medical history of bronchitis, COPD on albuterol nebs and 2L of home oxygen, OR s/p stent 05/2017 on pradaxa, PNA two weeks ago and was prescribed Augmentin who presents to the ER with shortness of breath, fatigue, and cough productive of yellow phlegm for the past two days. Patient had pneumonia two weeks ago and reports his symptoms are similar. Patient notes that Dr. Smallwood prescribed him Levaquin yesterday and has taken one dose. The patient endorses leg edema but denies numbness/ tingling/weakness, chest pain, headache, and dizziness. Denies fever, chills, nausea, vomit, diarrhea, and constipation. Denies dysuria, frequency. 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 No: AFIB Pulmonary: Yes: COPD, O2 Dependent, Pneumonia. No: Previously Intubated Gastrointestinal: Yes: Constipation Renal/: Yes: BPH Psych: Yes: Anxiety Musculoskeletal: Yes: Osteoarthritis ENT: Yes: Sinusitis - Past Surgical History Past Surgical History: Yes: Cataract Removal (bilateral) - Alcohol/Substance Use Hx Alcohol Use: Yes (socially) History of Substance Use: reports: None - Smoking History Smoking history: Never smoked Have you smoked in the past 12 months: No Aproximately how many cigarettes per day: 0 If you are a former smoker, when did you quit?: 40 years ago - Social History Usual Living Arrangement: With Spouse ADL: Independent Occupation: retired History of Recent Travel: No Home Medications - Allergies Allergies/Adverse Reactions: Allergies Allergy/AdvReac Type Severity Reaction Status Date / Time No Known Drug Allergies Allergy Verified 02/03/18 13:32 shrimp Allergy Unknown lip Uncoded 02/03/18 13:32 swelling - Home Medications Home Medications: Ambulatory Orders Aspirin Coated [Ecotrin -] 81 mg PO DAILY tablet.ec 09/04/17 Atorvastatin Ca [Lipitor] 40 mg PO HS tablet 09/04/17 Budesonide/Formeterol Fumarate [SYMBICORT 80/4.5mcg -] 2 puff IH BID inhaler Clopidogrel Bisulfate [Plavix -] 75 mg PO DAILY tablet 09/04/17 Escitalopram Oxalate [Lexapro -] 10 mg PO DAILY tablet 09/04/17 Ipratropium/Albuterol Sulfate [Combivent Respimat 20-100 Mcg] 4 gm IH QID #1 aer.w.adap 09/04/17 Tiotropium [place] [Spiriva] 1 puff IH DAILY inh 09/04/17 Amoxicillin/Potassium Clav [Augmentin 875-125 Tablet] 1 each PO BID #10 tablet 02/03/18 Prednisone [Deltasone] 20 mg PO DAILY #5 tablet 02/03/18 Family Disease History - Family Disease History Family Disease History: Respiratory: Father, Other: Mother (sinus issues) Review of Systems - Review of Systems Constitutional: reports: Chills. denies: Fever, Loss of Appetite Eyes: denies: Blurred Vision HENT: denies: Difficult Swallowing Neck: denies: Decreased ROM Cardiovascular: denies: Chest Pain Respiratory: reports: Cough, Exercise Intolerance, SOB on Exertion, Wheezing. denies: Hemoptysis Gastrointestinal: denies: Abdominal Pain Genitourinary: denies: Burning, Discharge Breasts: reports: No Symptoms Reported Musculoskeletal: reports: No Symptoms Integumentary: reports: No Symptoms Physical Exam Vital Sings: Vital Signs Temperature 97.6 F 03/01/18 05:48 Pulse Rate 73 03/01/18 10:51 Respiratory Rate 20 03/01/18 10:51 Blood Pressure 129/79 03/01/18 10:51 O2 Sat by Pulse Oximetry (%) 98 02/28/18 22:40 Constitutional: Yes: Calm Eyes: Yes: EOM Intact HENT: Yes: Normocephalic Neck: Yes: Trachea Midline Cardiovascular: Yes: Regular Rate and Rhythm Respiratory: Yes: Diminished Gastrointestinal: Yes: Normal Bowel Sounds Edema: No Integumentary: Yes: WNL Neurological: Yes: Alert ...Motor Strength: WNL Psychiatric: Yes: WNL Labs: CBC, BMP 03/01/18 06:00 03/01/18 06:00 Imaging - Results Chest X-ray: Report Reviewed, Image Reviewed Cat Scan: Report Reviewed, Image Reviewed Problem List - Problems (1) COPD exacerbation Code(s): J44.1 - CHRONIC OBSTRUCTIVE PULMONARY DISEASE W (ACUTE) EXACERBATION (2) Anxiety Code(s): F41.9 - ANXIETY DISORDER, UNSPECIFIED (3) Bronchitis Code(s): J40 - BRONCHITIS, NOT SPECIFIED ACUTE OR CHRONIC (4) CAD (coronary artery disease) Code(s): I25.10 - ATHSCL HEART DISEASE OF [place] CORONARY ARTERY W/O ANG PCTRS Qualifiers: [place] vs. transplanted heart: [place] heart (5) COPD (chronic obstructive pulmonary disease) with acute bronchitis Code(s): J44.0 - CHRONIC OBSTRUCTIVE PULMON DISEASE W ACUTE LOWER RESP INFCT (6) Cough Code(s): R05 - COUGH (7) Hypertension Code(s): I10 - ESSENTIAL (PRIMARY) HYPERTENSION Qualifiers: (8) Lung nodule seen on imaging study Code(s): R91.1 - SOLITARY PULMONARY NODULE Assessment/Plan A/E COPD NO CHANGE IN B/L UPPER LOBE NODULES ON CT CHEST NO EVIDENCE TO SUGGEST PNEUMONIA BUT ACUTE EPISODE WITH SHAKING CHILLS WORRISOME FOR INFECTION CAD/ASHD/OR /S/P PCI STENT AGREE WITH O2/BRONCHODILATORS/SHORT COURSE STEROIDS EMPIRIC ANTIBIOTICS FOR NOW CHECK PANCULTURE BLOOD/URINE WILL FOLLOW WITH YOU WELL KNOWN BY OUR SERVICE Abhijeet ERWIN MD
[2018-03-01] MEDS: AZITHROMYCIN IVPB 500 MG in DEXTROSE 5%-WATER - 250 ML IVPB SCH (14:15)
[2018-03-01] MEDS: MAG HYDROX/AL HYDROX/SIMETH 30 ML UNIT-DOSE CUP PO PRN (17:29)
[2018-03-01] MEDS: ATORVASTATIN CA 40 MG TABLET (FP) PO SCH (21:10)
[2018-03-02] MEDS: methylPREDNISolone NA SUCC 125 MG/2 ML VIAL IVPB SCH ×2 (02:18→10:35)
[2018-03-02] MEDS ORDERED: INSULIN (LEVEMIR) 100 UNITS/ML UNITS SQ ONE (06:13)
[2018-03-02] MEDS ORDERED: INSULIN (NOVOLOG) ASPART 100 UNITS/ML 10ML VIAL ONE (06:13)
[2018-03-02] MEDS: ALBUTEROL SO4 0.083% IH SOL 2.5 MG/3 ML VIAL.NEB. NEB SCH ×4 (07:30→20:11)
[2018-03-02] MEDS ORDERED: cefTRIAXone SODIUM 1 GM VIAL ONE (09:48)
[2018-03-02] MEDS ORDERED: DEXTROSE 5%-WATER - 50 ML IVPB ONE (09:49)
[2018-03-02] MEDS: PANTOPRAZOLE 40 MG TABLET (FP) PO SCH (09:52)
[2018-03-02] MEDS: ESCITALOPRAM OXALATE 10 MG TABLET (FP) PO SCH (09:52)
[2018-03-02] MEDS: ASPIRIN COATED 81 MG TABLET.EC PO SCH (09:52)
[2018-03-02] MEDS: BUDESONIDE/FORMETEROL FUMARATE 80/4.5 mcg INHALER IH SCH ×2 (09:52→21:48)
[2018-03-02] MEDS: TIOTROPIUM BROMIDE 2.5 MCG (SPIRIVA) RESPIMAT INHALER IH SCH (09:52)
[2018-03-02] MEDS: CLOPIDOGREL BISULFATE 75 MG TABLET (FP) PO SCH (09:52)
[2018-03-02] MEDS: HEPARIN NA (PORCINE) 5,000 UNITS/ML 1ML VIAL SQ SCH ×2 (09:52→21:47)
[2018-03-02] MEDS: CEFTRIAXONE 1 GM in DEXTROSE 5%-WATER - 50 ML IVPB SCH (10:36)
[2018-03-02] MEDS: AZITHROMYCIN IVPB 500 MG in DEXTROSE 5%-WATER - 250 ML IVPB SCH (10:36)
--- NOTE | 2018-03-02 11:07 | PN ---
Progress Note, Physician History of Present Illness: Breathing feeling better today, stomach also, but yesterday throughout the day was vomiting when he attempted to eat. - Current Medication List Current Medications: Active Medications Al Hydroxide/Mg Hydroxide (Mylanta Oral Suspension -) 30 ml PO Q6H PRN PRN Reason: INDIGESTION Last Admin: 03/01/18 17:29 Dose: 30 ml Albuterol Sulfate (Ventolin 0.083% Nebulizer Soln -) 1 amp NEB RQID [facility] Last Admin: 03/02/18 07:30 Dose: 1 amp Albuterol Sulfate (Ventolin 0.083% Nebulizer Soln -) 1 amp NEB Q4H PRN PRN Reason: SHORT OF BREATH/WHEEZING Aspirin (Ecotrin -) 81 mg PO DAILY [facility] Last Admin: 03/02/18 09:52 Dose: 81 mg Atorvastatin Calcium (Lipitor -) 40 mg PO HS [facility] Last Admin: 03/01/18 21:10 Dose: 40 mg Budesonide/Formoterol Fumarate (Symbicort 80/4.5mcg -) 2 puff IH BID [facility] Last Admin: 03/02/18 09:52 Dose: 2 puff Clopidogrel Bisulfate (Plavix -) 75 mg PO DAILY [facility] Last Admin: 03/02/18 09:52 Dose: 75 mg Escitalopram Oxalate (Lexapro -) 10 mg PO DAILY [facility] Last Admin: 03/02/18 09:52 Dose: 10 mg Heparin Sodium (Porcine) (Heparin -) 5,000 unit SQ BID [facility] Last Admin: 03/02/18 09:52 Dose: 5,000 unit Azithromycin 500 mg/ Dextrose 250 mls @ 250 mls/hr IVPB DAILY [facility] Last Admin: 03/02/18 10:36 Dose: 250 mls/hr Ceftriaxone Sodium 1 gm/ (Dextrose) 50 mls @ 100 mls/hr IVPB DAILY [facility]; Protocol Last Admin: 03/02/18 10:36 Dose: 100 mls/hr Methylprednisolone Sodium Succinate (Solu-Medrol -) 40 mg IVPB Q8H-IV [facility] Last Admin: 03/02/18 10:35 Dose: 40 mg Ondansetron HCl (Zofran Injection) 8 mg IVPB Q6H PRN PRN Reason: NAUSEA Last Admin: 03/01/18 17:56 Dose: 8 mg Pantoprazole Sodium (Protonix -) 40 mg PO DAILY [facility] Last Admin: 03/02/18 09:52 Dose: 40 mg Tiotropium [place] (Spiriva Respimat) 2 puff IH DAILY [facility] Last Admin: 03/02/18 09:52 Dose: 2 puff - Objective Vital Signs: Vital Signs Temperature 98.2 F 03/02/18 09:40 Pulse Rate 76 03/02/18 09:40 Respiratory Rate 20 03/02/18 09:40 Blood Pressure 125/67 03/02/18 09:40 O2 Sat by Pulse Oximetry (%) 98 03/01/18 21:00 Constitutional: Yes: No Distress, Calm Neck: Yes: Supple, Trachea Midline Cardiovascular: Yes: Regular Rate and Rhythm, S1, S2. No: Murmur Respiratory: Yes: Regular, Diminished (bilaterally) Gastrointestinal: Yes: Normal Bowel Sounds, Soft. No: Distention, Tenderness Edema: No Labs: CBC, BMP 03/01/18 06:00 03/01/18 06:00 INR, PTT INR 1.13 (0.83-1.09) H 02/28/18 15:07 Problem List - Problems (1) Pneumonia Code(s): J18.9 - PNEUMONIA, UNSPECIFIED ORGANISM Qualifiers: Pneumonia type: due to unspecified organism Laterality: right Lung location: lower lobe of lung Qualified Code(s): J18.1 - Lobar pneumonia, unspecified organism (2) COPD exacerbation Code(s): J44.1 - CHRONIC OBSTRUCTIVE PULMONARY DISEASE W (ACUTE) EXACERBATION (3) Hyperlipidemia Code(s): E78.5 - HYPERLIPIDEMIA, UNSPECIFIED (4) Anxiety Code(s): F41.9 - ANXIETY DISORDER, UNSPECIFIED Assessment/Plan Current Active Problems COPD exacerbation (Acute) Pneumonia (Acute) nausea hyperlipidemia anxiety -pantoprazole, mylanta, prn zofran for nausea (likely gastritis) -start tapering steroids, cont abx, neb treatments
[2018-03-02] MEDS ORDERED: methylPREDNISolone NA SUCC 40 MG/1 ML VIAL IVPB SCH (11:15)
[2018-03-02] MEDS: MAG HYDROX/AL HYDROX/SIMETH 30 ML UNIT-DOSE CUP PO PRN (11:35)
--- NOTE | 2018-03-02 13:18 | PN ---
Progress Note (short form) - Note Progress Note: PULMONARY VSS/AFEBRILE NO FURTHER RETCHING VSS/AFEBRILE ANICTERIC DIMINISHED B/L BREATH SOUNDS S1S2 BS+ NO EDEMA LABS/MEDS/NOTES/IMAGES REVIEWED A/E COPD NO CHANGE IN B/L UPPER LOBE NODULES ON CT CHEST NO EVIDENCE TO SUGGEST PNEUMONIA BUT ACUTE EPISODE WITH SHAKING CHILLS WORRISOME FOR INFECTION CAD/ASHD/IL /S/P PCI STENT AGREE WITH O2/BRONCHODILATORS/SHORT COURSE STEROIDS EMPIRIC ANTIBIOTICS FOR NOW URINE CULTURE RE-ORDERED WILL FOLLOW WITH YOU WELL KNOWN BY OUR SERVICE Abhijeet ERWIN MD Problem List - Problems (1) COPD exacerbation Code(s): J44.1 - CHRONIC OBSTRUCTIVE PULMONARY DISEASE W (ACUTE) EXACERBATION (2) Anxiety Code(s): F41.9 - ANXIETY DISORDER, UNSPECIFIED (3) Bronchitis Code(s): J40 - BRONCHITIS, NOT SPECIFIED ACUTE OR CHRONIC (4) CAD (coronary artery disease) Code(s): I25.10 - ATHSCL HEART DISEASE OF [place] CORONARY ARTERY W/O ANG PCTRS Qualifiers: [place] vs. transplanted heart: [place] heart (5) COPD (chronic obstructive pulmonary disease) with acute bronchitis Code(s): J44.0 - CHRONIC OBSTRUCTIVE PULMON DISEASE W ACUTE LOWER RESP INFCT (6) Cough Code(s): R05 - COUGH (7) Hypertension Code(s): I10 - ESSENTIAL (PRIMARY) HYPERTENSION Qualifiers: (8) Lung nodule seen on imaging study Code(s): R91.1 - SOLITARY PULMONARY NODULE
[2018-03-02] MEDS: ATORVASTATIN CA 40 MG TABLET (FP) PO SCH (21:48)
[2018-03-02] MEDS: methylPREDNISolone NA SUCC 40 MG/1 ML VIAL IVPB SCH (21:48)
[2018-03-03] MEDS: ALBUTEROL SO4 0.083% IH SOL 2.5 MG/3 ML VIAL.NEB. NEB SCH ×4 (07:30→21:00)
[2018-03-03 08:21] LABS: HEMATOCRIT 44.9 % (35.4-49); HEMOGLOBIN 14.8 GM/dL (11.7-16.9); LYMPH % 5.6 % (8-40); MCH 30.1 pg (25.7-33.7); MEAN CELL VOLUME 91.2 fl (80-96); MEAN PLT VOLUME 7.9 fl (7.5-11.1); NEUT % 91.4 % (42.8-82.8); PLATELET COUNT 250 K/MM3 (134-434); RBC 4.92 M/mm3 (4.00-5.60); RDW 15.2 % (11.9-15.9); WHITE BLOOD COUNT 18.3 K/mm3 (4.0-10.0)
[2018-03-03 08:43] LABS: ALBUMIN 3.8 g/dl (3.4-5.0); ANION GAP 7 MMOL/L (8-16); BLOOD UREA NITROGEN 35 mg/dL (7-18); CHLORIDE 105 mmol/L (98-107); CO2 29 mmol/L (21-32); GLUCOSE,RANDOM 101 mg/dL (74-106); POTASSIUM 4.7 mmol/L (3.5-5.1); SGOT/AST 27 U/L (15-37); SGPT/ALT 25 U/L (12-78); SODIUM 141 mmol/L (136-145)
[2018-03-03 08:45] LABS: ALK PHOS 56 U/L (45-117); BILIRUBIN,TOTAL 0.6 mg/dL (0.2-1.0); TOT PROT 6.5 g/dl (6.4-8.2)
--- NOTE | 2018-03-03 09:58 | PN ---
Progress Note (short form) - Note Progress Note: Dr. Azevedo to document today. COPD + ? UTI
--- NOTE | 2018-03-03 11:16 | EKG ---
Test Reason : Blood Pressure : / mmHG Vent. Rate : 068 BPM Atrial Rate : 068 BPM P-R Int : 162 ms QRS Dur : 082 ms QT Int : 410 ms P-R-T Axes : 022 -28 036 degrees QTc Int : 435 ms NORMAL SINUS RHYTHM SEPTAL INFARCT , AGE UNDETERMINED ABNORMAL ECG WHEN COMPARED WITH ECG OF 22-NOV-2017 14:17, SEPTAL INFARCT IS NOW PRESENT Confirmed by BRIAN CHOE MD ([id number]) on 03/03/2018 11:15:59 AM Referred By: Confirmed By:BRIAN CHOE MD
[2018-03-03] MEDS ORDERED: PT OWN MED DRAWER 7, Y5N ONE ×2 (11:19→13:22)
[2018-03-03] MEDS ORDERED: cefTRIAXone SODIUM 1 GM VIAL ONE (11:19)
[2018-03-03] MEDS ORDERED: DEXTROSE 5%-WATER - 50 ML IVPB ONE (11:20)
[2018-03-03] MEDS: BUDESONIDE/FORMETEROL FUMARATE 80/4.5 mcg INHALER IH SCH ×2 (11:32→22:00)
[2018-03-03] MEDS: TIOTROPIUM BROMIDE 2.5 MCG (SPIRIVA) RESPIMAT INHALER IH SCH (11:32)
[2018-03-03] MEDS: ASPIRIN COATED 81 MG TABLET.EC PO SCH (11:33)
[2018-03-03] MEDS: HEPARIN NA (PORCINE) 5,000 UNITS/ML 1ML VIAL SQ SCH ×2 (11:33→21:59)
[2018-03-03] MEDS: CEFTRIAXONE 1 GM in DEXTROSE 5%-WATER - 50 ML IVPB SCH (11:33)
[2018-03-03] MEDS: CLOPIDOGREL BISULFATE 75 MG TABLET (FP) PO SCH (11:33)
[2018-03-03] MEDS: ESCITALOPRAM OXALATE 10 MG TABLET (FP) PO SCH (11:33)
[2018-03-03] MEDS: methylPREDNISolone NA SUCC 40 MG/1 ML VIAL IVPB SCH ×2 (11:33→22:00)
[2018-03-03 11:34] LABS: ANISOCYTOSIS 3+; MACROCYTOSIS 0; PLATELET ESTIMATE NORMAL
[2018-03-03] MEDS: PANTOPRAZOLE 40 MG TABLET (FP) PO SCH (11:35)
[2018-03-03] MEDS: AZITHROMYCIN IVPB 500 MG in DEXTROSE 5%-WATER - 250 ML IVPB SCH (12:21)
--- NOTE | 2018-03-03 13:13 | PN ---
Progress Note (short form) - Note Progress Note: PULMONARY States he is breathing better today. Less cough and wheezing. Vital Signs Period Temp Pulse Resp BP Sys/Donovan Pulse Ox Last 24 Hr 97.6 F-98.3 F 60-75 20-24 115-126/53-64 98 Gen: NAD in chair Heart: RRR Lung: scattered rhonchi Abd: soft, nontender Ext: no edema CBC, BMP 03/03/18 07:30 03/03/18 07:30 Active Medications Al Hydroxide/Mg Hydroxide (Mylanta Oral Suspension -) 30 ml PO Q6H PRN PRN Reason: INDIGESTION Last Admin: 03/02/18 11:35 Dose: 30 ml Albuterol Sulfate (Ventolin 0.083% Nebulizer Soln -) 1 amp NEB RQID [facility] Last Admin: 03/03/18 11:30 Dose: 1 amp Albuterol Sulfate (Ventolin 0.083% Nebulizer Soln -) 1 amp NEB Q4H PRN PRN Reason: SHORT OF BREATH/WHEEZING Aspirin (Ecotrin -) 81 mg PO DAILY [facility] Last Admin: 03/03/18 11:33 Dose: 81 mg Atorvastatin [place]cium (Lipitor -) 40 mg PO HS [facility] Last Admin: 03/02/18 21:48 Dose: 40 mg Budesonide/Formoterol Fumarate (Symbicort 80/4.5mcg -) 2 puff IH BID [facility] Last Admin: 03/03/18 11:32 Dose: 2 puff Clopidogrel Bisulfate (Plavix -) 75 mg PO DAILY [facility] Last Admin: 03/03/18 11:33 Dose: 75 mg Escitalopram Oxalate (Lexapro -) 10 mg PO DAILY [facility] Last Admin: 03/03/18 11:33 Dose: 10 mg Heparin Sodium (Porcine) (Heparin -) 5,000 unit SQ BID [facility] Last Admin: 03/03/18 11:33 Dose: 5,000 unit Azithromycin 500 mg/ Dextrose 250 mls @ 250 mls/hr IVPB DAILY [facility] Last Admin: 03/03/18 12:21 Dose: 250 mls/hr Ceftriaxone Sodium 1 gm/ (Dextrose) 50 mls @ 100 mls/hr IVPB DAILY [facility]; Protocol Last Admin: 03/03/18 11:33 Dose: 100 mls/hr Methylprednisolone Sodium Succinate (Solu-Medrol -) 40 mg IVPB BID [facility] Last Admin: 03/03/18 11:33 Dose: 40 mg Ondansetron HCl (Zofran Injection) 8 mg IVPB Q6H PRN PRN Reason: NAUSEA Last Admin: 03/01/18 17:56 Dose: 8 mg Pantoprazole Sodium (Protonix -) 40 mg PO DAILY [facility] Last Admin: 03/03/18 11:35 Dose: 40 mg Tiotropium [place] (Spiriva Respimat) 2 puff IH DAILY [facility] Last Admin: 03/03/18 11:32 Dose: 2 puff A/P Acute COPD exacerbation Emphysema Lung Nodules CAD Hyperlipidemia - continue medrol at current dose, can likely change to PO prednisone 40mg daily in AM if continues to improve - inhaled bronchodilators - O2 to keep SpO2 >90% - can likely d/c ceftriaxone, no signs of pneumonia at this time - DVT prophylaxis
[2018-03-03] MEDS: ATORVASTATIN CA 40 MG TABLET (FP) PO SCH (21:59)
[2018-03-04] MEDS: ALBUTEROL SO4 0.083% IH SOL 2.5 MG/3 ML VIAL.NEB. NEB SCH ×4 (08:35→20:51)
--- NOTE | 2018-03-04 10:33 | PN ---
Progress Note (short form) - Note Progress Note: Dr. Azevedo to document today. Feeling better; as per Dr. Ceron will D/C Ceftriaxone; still on Azithromycin. Hopefully to switch to oral steroids and D/C by Saturday if no setbacks.
[2018-03-04] MEDS ORDERED: PT OWN MED DRAWER 7, Y5N ONE ×3 (10:58→22:51)
[2018-03-04] MEDS: ASPIRIN COATED 81 MG TABLET.EC PO SCH (11:00)
[2018-03-04] MEDS: methylPREDNISolone NA SUCC 40 MG/1 ML VIAL IVPB SCH ×4 (11:00→21:52)
[2018-03-04] MEDS: ESCITALOPRAM OXALATE 10 MG TABLET (FP) PO SCH (11:00)
[2018-03-04] MEDS: CLOPIDOGREL BISULFATE 75 MG TABLET (FP) PO SCH (11:00)
[2018-03-04] MEDS: PANTOPRAZOLE 40 MG TABLET (FP) PO SCH (11:00)
[2018-03-04] MEDS: HEPARIN NA (PORCINE) 5,000 UNITS/ML 1ML VIAL SQ SCH ×2 (11:00→21:51)
[2018-03-04] MEDS: TIOTROPIUM BROMIDE 2.5 MCG (SPIRIVA) RESPIMAT INHALER IH SCH (11:01)
[2018-03-04] MEDS: BUDESONIDE/FORMETEROL FUMARATE 80/4.5 mcg INHALER IH SCH ×2 (11:01→21:52)
[2018-03-04] MEDS: AZITHROMYCIN IVPB 500 MG in DEXTROSE 5%-WATER - 250 ML IVPB SCH ×3 (11:01→11:56)
[2018-03-04] MEDS: CEFTRIAXONE 1 GM in DEXTROSE 5%-WATER - 50 ML IVPB SCH (11:30)
--- NOTE | 2018-03-04 12:04 | PN ---
Progress Note, Physician History of Present Illness: pulmonary alert,oob-chair,no distress,-sob,-cough - Current Medication List Current Medications: Active Medications Al Hydroxide/Mg Hydroxide (Mylanta Oral Suspension -) 30 ml PO Q6H PRN PRN Reason: INDIGESTION Last Admin: 03/02/18 11:35 Dose: 30 ml Albuterol Sulfate (Ventolin 0.083% Nebulizer Soln -) 1 amp NEB RQID [facility] Last Admin: 03/04/18 08:35 Dose: 1 amp Albuterol Sulfate (Ventolin 0.083% Nebulizer Soln -) 1 amp NEB Q4H PRN PRN Reason: SHORT OF BREATH/WHEEZING Aspirin (Ecotrin -) 81 mg PO DAILY [facility] Last Admin: 03/04/18 11:00 Dose: 81 mg Atorvastatin Calcium (Lipitor -) 40 mg PO HS [facility] Last Admin: 03/03/18 21:59 Dose: 40 mg Budesonide/Formoterol Fumarate (Symbicort 80/4.5mcg -) 2 puff IH BID [facility] Last Admin: 03/04/18 11:01 Dose: 2 puff Clopidogrel Bisulfate (Plavix -) 75 mg PO DAILY [facility] Last Admin: 03/04/18 11:00 Dose: 75 mg Escitalopram Oxalate (Lexapro -) 10 mg PO DAILY [facility] Last Admin: 03/04/18 11:00 Dose: 10 mg Heparin Sodium (Porcine) (Heparin -) 5,000 unit SQ BID [facility] Last Admin: 03/04/18 11:00 Dose: 5,000 unit Azithromycin 500 mg/ Dextrose 250 mls @ 250 mls/hr IVPB DAILY [facility] Last Admin: 03/04/18 11:56 Dose: 250 mls/hr Methylprednisolone Sodium Succinate (Solu-Medrol -) 40 mg IVPB BID [facility] Last Admin: 03/04/18 11:55 Dose: 40 mg Ondansetron HCl (Zofran Injection) 8 mg IVPB Q6H PRN PRN Reason: NAUSEA Last Admin: 03/01/18 17:56 Dose: 8 mg Pantoprazole Sodium (Protonix -) 40 mg PO DAILY [facility] Last Admin: 03/04/18 11:00 Dose: 40 mg Senna (Senna -) 1 tab PO [facility] Tiotropium [place] (Spiriva Respimat) 2 puff IH DAILY [facility] Last Admin: 03/04/18 11:01 Dose: 2 puff - Objective Vital Signs: Vital Signs Temperature 97.5 F L 03/04/18 06:00 Pulse Rate 64 03/04/18 10:52 Respiratory Rate 24 03/04/18 10:52 Blood Pressure 134/65 03/04/18 10:52 O2 Sat by Pulse Oximetry (%) 99 03/03/18 21:00 Constitutional: Yes: Well Nourished, Calm Eyes: Yes: WNL HENT: Yes: WNL Neck: Yes: WNL Cardiovascular: Yes: Regular Rate and Rhythm, S1, S2 Respiratory: Yes: Diminished Gastrointestinal: Yes: Normal Bowel Sounds, Soft Extremities: Yes: WNL Edema: No Labs: CBC, BMP 03/03/18 07:30 03/03/18 07:30 INR, PTT INR 1.13 (0.83-1.09) H 02/28/18 15:07 Problem List - Problems (1) COPD exacerbation Code(s): J44.1 - CHRONIC OBSTRUCTIVE PULMONARY DISEASE W (ACUTE) EXACERBATION (2) Anxiety about health Code(s): F41.8 - OTHER SPECIFIED ANXIETY DISORDERS (3) Bronchitis Code(s): J40 - BRONCHITIS, NOT SPECIFIED ACUTE OR CHRONIC (4) CAD (coronary artery disease) Code(s): I25.10 - ATHSCL HEART DISEASE OF [place] CORONARY ARTERY W/O ANG PCTRS Qualifiers: [place] vs. transplanted heart: [place] heart (5) Cough Code(s): R05 - COUGH (6) Hypertension Code(s): I10 - ESSENTIAL (PRIMARY) HYPERTENSION Qualifiers: (7) Lung nodule Code(s): R91.1 - SOLITARY PULMONARY NODULE (8) Shortness of breath Code(s): R06.02 - SHORTNESS OF BREATH Assessment/Plan A/P Acute COPD exacerbation improving Emphysema Lung Nodules stable CAD Hyperlipidemia - prednisone 40mg daily - inhaled bronchodilators - O2 to keep SpO2 >90% - DVT prophylaxis DR HEATH
--- NOTE | 2018-03-04 15:02 | PN ---
Progress Note, Physician Chief Complaint: Mr Ramirez says he is feeling much better today than he has been and almost at baseline. States he is only minimally short of breath. No cp or n/v. - Current Medication List Current Medications: Active Medications Al Hydroxide/Mg Hydroxide (Mylanta Oral Suspension -) 30 ml PO Q6H PRN PRN Reason: INDIGESTION Last Admin: 03/02/18 11:35 Dose: 30 ml Albuterol Sulfate (Ventolin 0.083% Nebulizer Soln -) 1 amp NEB RQID [facility] Last Admin: 03/04/18 12:39 Dose: 1 amp Albuterol Sulfate (Ventolin 0.083% Nebulizer Soln -) 1 amp NEB Q4H PRN PRN Reason: SHORT OF BREATH/WHEEZING Aspirin (Ecotrin -) 81 mg PO DAILY [facility] Last Admin: 03/04/18 11:00 Dose: 81 mg Atorvastatin Calcium (Lipitor -) 40 mg PO HS [facility] Last Admin: 03/03/18 21:59 Dose: 40 mg Budesonide/Formoterol Fumarate (Symbicort 80/4.5mcg -) 2 puff IH BID [facility] Last Admin: 03/04/18 11:01 Dose: 2 puff Clopidogrel Bisulfate (Plavix -) 75 mg PO DAILY [facility] Last Admin: 03/04/18 11:00 Dose: 75 mg Escitalopram Oxalate (Lexapro -) 10 mg PO DAILY [facility] Last Admin: 03/04/18 11:00 Dose: 10 mg Heparin Sodium (Porcine) (Heparin -) 5,000 unit SQ BID [facility] Last Admin: 03/04/18 11:00 Dose: 5,000 unit Azithromycin 500 mg/ Dextrose 250 mls @ 250 mls/hr IVPB DAILY [facility] Last Admin: 03/04/18 11:56 Dose: 250 mls/hr Methylprednisolone Sodium Succinate (Solu-Medrol -) 40 mg IVPB BID [facility] Last Admin: 03/04/18 11:55 Dose: 40 mg Ondansetron HCl (Zofran Injection) 8 mg IVPB Q6H PRN PRN Reason: NAUSEA Last Admin: 03/01/18 17:56 Dose: 8 mg Pantoprazole Sodium (Protonix -) 40 mg PO DAILY [facility] Last Admin: 03/04/18 11:00 Dose: 40 mg Senna (Senna -) 1 tab PO [facility] Tiotropium [place] (Spiriva Respimat) 2 puff IH DAILY [facility] Last Admin: 03/04/18 11:01 Dose: 2 puff - Objective Vital Signs: Vital Signs Temperature 36.8 C 03/04/18 13:52 Pulse Rate 72 03/04/18 13:52 Respiratory Rate 21 03/04/18 13:52 Blood Pressure 129/50 03/04/18 13:52 O2 Sat by Pulse Oximetry (%) 99 03/03/18 21:00 Constitutional: Yes: Well Nourished, No Distress, Calm Cardiovascular: Yes: Regular Rate and Rhythm. No: Gallop, Murmur, Rub Respiratory: Yes: Regular, On Nasal O2, Wheezes (very minimal). No: CTA Bilaterally, Rales, Rhonchi Gastrointestinal: Yes: Normal Bowel Sounds, Soft. No: Distention, Tenderness Extremities: Yes: WNL Edema: No Labs: CBC, BMP 03/03/18 07:30 03/03/18 07:30 INR, PTT INR 1.13 (0.83-1.09) H 02/28/18 15:07 Problem List - Problems (1) COPD exacerbation Assessment/Plan: -much improved -continue rocephin and zithromax currently -continue solumedrol and bronchodilators Code(s): J44.1 - CHRONIC OBSTRUCTIVE PULMONARY DISEASE W (ACUTE) EXACERBATION (2) CAD (coronary artery disease) Assessment/Plan: -quiescent -continue home regimen Code(s): I25.10 - ATHSCL HEART DISEASE OF [place] CORONARY ARTERY W/O ANG PCTRS Qualifiers: [place] vs. transplanted heart: [place] heart (3) Hyperlipidemia Assessment/Plan: -continue statin Code(s): E78.5 - HYPERLIPIDEMIA, UNSPECIFIED (4) Hypertension Assessment/Plan: -continue home regimen Code(s): I10 - ESSENTIAL (PRIMARY) HYPERTENSION Qualifiers:
--- NOTE | 2018-03-04 15:03 | PN ---
Progress Note, Physician Chief Complaint: Mr Ramirez doing well. No cp or n/v. Minimal sob. - Current Medication List Current Medications: Active Medications Al Hydroxide/Mg Hydroxide (Mylanta Oral Suspension -) 30 ml PO Q6H PRN PRN Reason: INDIGESTION Last Admin: 03/02/18 11:35 Dose: 30 ml Albuterol Sulfate (Ventolin 0.083% Nebulizer Soln -) 1 amp NEB RQID [facility] Last Admin: 03/04/18 12:39 Dose: 1 amp Albuterol Sulfate (Ventolin 0.083% Nebulizer Soln -) 1 amp NEB Q4H PRN PRN Reason: SHORT OF BREATH/WHEEZING Aspirin (Ecotrin -) 81 mg PO DAILY [facility] Last Admin: 03/04/18 11:00 Dose: 81 mg Atorvastatin Calcium (Lipitor -) 40 mg PO HS [facility] Last Admin: 03/03/18 21:59 Dose: 40 mg Budesonide/Formoterol Fumarate (Symbicort 80/4.5mcg -) 2 puff IH BID [facility] Last Admin: 03/04/18 11:01 Dose: 2 puff Clopidogrel Bisulfate (Plavix -) 75 mg PO DAILY [facility] Last Admin: 03/04/18 11:00 Dose: 75 mg Escitalopram Oxalate (Lexapro -) 10 mg PO DAILY [facility] Last Admin: 03/04/18 11:00 Dose: 10 mg Heparin Sodium (Porcine) (Heparin -) 5,000 unit SQ BID [facility] Last Admin: 03/04/18 11:00 Dose: 5,000 unit Azithromycin 500 mg/ Dextrose 250 mls @ 250 mls/hr IVPB DAILY [facility] Last Admin: 03/04/18 11:56 Dose: 250 mls/hr Methylprednisolone Sodium Succinate (Solu-Medrol -) 40 mg IVPB BID [facility] Last Admin: 03/04/18 11:55 Dose: 40 mg Ondansetron HCl (Zofran Injection) 8 mg IVPB Q6H PRN PRN Reason: NAUSEA Last Admin: 03/01/18 17:56 Dose: 8 mg Pantoprazole Sodium (Protonix -) 40 mg PO DAILY [facility] Last Admin: 03/04/18 11:00 Dose: 40 mg Senna (Senna -) 1 tab PO [facility] Tiotropium [place] (Spiriva Respimat) 2 puff IH DAILY [facility] Last Admin: 03/04/18 11:01 Dose: 2 puff - Objective Vital Signs: Vital Signs Temperature 36.8 C 03/04/18 13:52 Pulse Rate 72 03/04/18 13:52 Respiratory Rate 21 03/04/18 13:52 Blood Pressure 129/50 03/04/18 13:52 O2 Sat by Pulse Oximetry (%) 99 03/03/18 21:00 Constitutional: Yes: Well Nourished, No Distress, Calm Cardiovascular: Yes: Regular Rate and Rhythm. No: Gallop, Murmur, Rub Respiratory: Yes: Regular, On Nasal O2, Wheezes. No: CTA Bilaterally, Rales, Rhonchi Gastrointestinal: Yes: Normal Bowel Sounds, Soft. No: Distention, Tenderness Extremities: Yes: WNL Edema: No Labs: CBC, BMP 03/03/18 07:30 03/03/18 07:30 INR, PTT INR 1.13 (0.83-1.09) H 02/28/18 15:07 Problem List - Problems (1) COPD exacerbation Code(s): J44.1 - CHRONIC OBSTRUCTIVE PULMONARY DISEASE W (ACUTE) EXACERBATION (2) CAD (coronary artery disease) Code(s): I25.10 - ATHSCL HEART DISEASE OF [place] CORONARY ARTERY W/O ANG PCTRS Qualifiers: [place] vs. transplanted heart: [place] heart (3) Hyperlipidemia Code(s): E78.5 - HYPERLIPIDEMIA, UNSPECIFIED (4) Hypertension Code(s): I10 - ESSENTIAL (PRIMARY) HYPERTENSION Qualifiers: Assessment/Plan (1) COPD exacerbation Assessment/Plan: -much improved -continue rocephin and zithromax currently -continue solumedrol and bronchodilators Code(s): J44.1 - CHRONIC OBSTRUCTIVE PULMONARY DISEASE W (ACUTE) EXACERBATION (2) CAD (coronary artery disease) Assessment/Plan: -quiescent -continue home regimen Code(s): I25.10 - ATHSCL HEART DISEASE OF [place] CORONARY ARTERY W/O ANG PCTRS Qualifiers: [place] vs. transplanted heart: [place] heart (3) Hyperlipidemia Assessment/Plan: -continue statin Code(s): E78.5 - HYPERLIPIDEMIA, UNSPECIFIED (4) Hypertension Assessment/Plan: -continue home regimen Code(s): I10 - ESSENTIAL (PRIMARY) HYPERTENSION Qualifiers:
[2018-03-04] MEDS: ATORVASTATIN CA 40 MG TABLET (FP) PO SCH (21:52)
[2018-03-04] MEDS ORDERED: SENNOSIDES 8.6MG TABLET (FP) PO SCH (22:00)
[2018-03-05 07:51] LABS: BASO % 0.1 % (0-2.0); HEMOGLOBIN 15.2 GM/dL (11.7-16.9); LYMPH % 8.5 % (8-40); MCH 29.8 pg (25.7-33.7); MCHC 33.1 g/dl (32.0-35.9); MEAN CELL VOLUME 90.2 fl (80-96); MEAN PLT VOLUME 7.8 fl (7.5-11.1); MONO % 3.6 % (3.8-10.2); NEUT % 87.8 % (42.8-82.8); PLATELET COUNT 221 K/MM3 (134-434); RDW 15.1 % (11.9-15.9); WHITE BLOOD COUNT 10.3 K/mm3 (4.0-10.0)
[2018-03-05 08:25] LABS: ANION GAP 4 MMOL/L (8-16); BLOOD UREA NITROGEN 28 mg/dL (7-18); CALCIUM 9.1 mg/dL (8.5-10.1); CHLORIDE 102 mmol/L (98-107); CO2 33 mmol/L (21-32); CREATININE 0.9 mg/dL (0.7-1.3); GLUCOSE,RANDOM 106 mg/dL (74-106); MAGNESIUM 2.3 mg/dL (1.8-2.4); PHOSPHOROUS 3.9 mg/dL (2.5-4.9); POTASSIUM 4.4 mmol/L (3.5-5.1); SODIUM 139 mmol/L (136-145)
[2018-03-05] MEDS ORDERED: FUROSEMIDE 20 MG TABLET (FP) PO ONE (08:44)
--- NOTE | 2018-03-05 08:46 | PN ---
Progress Note (short form) - Note Progress Note: Dr. Azevedo to document today. 2+ pedal edema; Lasix 20mg po Steroids changed to PO.
[2018-03-05] MEDS: ALBUTEROL SO4 0.083% IH SOL 2.5 MG/3 ML VIAL.NEB. NEB SCH ×2 (09:00→11:59)
[2018-03-05] MEDS ORDERED: predniSONE 20 MG TABLET (UD) PO SCH (10:00)
[2018-03-05] MEDS ORDERED: PT OWN MED DRAWER 7, Y5N ONE ×2 (10:04→14:08)
[2018-03-05] MEDS: ASPIRIN COATED 81 MG TABLET.EC PO SCH (10:12)
[2018-03-05] MEDS: CLOPIDOGREL BISULFATE 75 MG TABLET (FP) PO SCH (10:12)
[2018-03-05] MEDS: HEPARIN NA (PORCINE) 5,000 UNITS/ML 1ML VIAL SQ SCH (10:13)
[2018-03-05] MEDS: ESCITALOPRAM OXALATE 10 MG TABLET (FP) PO SCH (10:13)
[2018-03-05] MEDS: PANTOPRAZOLE 40 MG TABLET (FP) PO SCH (10:13)
[2018-03-05] MEDS: BUDESONIDE/FORMETEROL FUMARATE 80/4.5 mcg INHALER IH SCH (10:13)
[2018-03-05] MEDS: TIOTROPIUM BROMIDE 2.5 MCG (SPIRIVA) RESPIMAT INHALER IH SCH (10:14)
[2018-03-05] MEDS: AZITHROMYCIN IVPB 500 MG in DEXTROSE 5%-WATER - 250 ML IVPB SCH (10:14)
--- NOTE | 2018-03-05 11:53 | DS ---
Physical Examination Vital Signs: Vital Signs Temperature 36.7 C 03/04/18 18:52 Pulse Rate 65 03/04/18 22:00 Respiratory Rate 22 03/04/18 22:00 Blood Pressure 129/66 03/04/18 22:00 O2 Sat by Pulse Oximetry (%) 98 03/04/18 21:00 Constitutional: Yes: Well Nourished, No Distress, Calm Cardiovascular: Yes: Regular Rate and Rhythm. No: Gallop, Murmur, Rub Respiratory: Yes: Regular, CTA Bilaterally. No: Rales, Rhonchi, Wheezes Gastrointestinal: Yes: Normal Bowel Sounds, Soft. No: Distention, Tenderness Extremities: Yes: WNL Edema: No Labs: CBC, BMP 03/05/18 07:20 03/05/18 07:20 Discharge Summary Reason For Visit: PNA, EXAC OF ACUTE COPD, EDEMA OF LE Current Active Problems COPD exacerbation (Acute) Leg edema (Acute) Pneumonia (Acute) Hospital Course: (1) COPD exacerbation with chronic respiratory failure Code(s): J44.1 - CHRONIC OBSTRUCTIVE PULMONARY DISEASE W (ACUTE) EXACERBATION (2) CAD (coronary artery disease) Code(s): I25.10 - ATHSCL HEART DISEASE OF [place] CORONARY ARTERY W/O ANG PCTRS Qualifiers: [place] vs. transplanted heart: [place] heart (3) Hyperlipidemia Code(s): E78.5 - HYPERLIPIDEMIA, UNSPECIFIED (4) Hypertension Code(s): I10 - ESSENTIAL (PRIMARY) HYPERTENSION Qualifiers: Mr Brady is a very pleasant 87 year old male who came in with COPD exacerbation. He was admitted to the hospital and started on IV solumedrol and antibiotics. He was continued on his bronchodilators. He improved significantly while here. Currently he is safe to transition to oral prednisone with taper. He is normally maintained on prednisone 5mg daily. Currently he is safe for discharge home on his home oxygen and close follow up. 32 minutes spent in preparation of this discharge Condition: Good - Instructions Diet, Activity, Other Instructions: resume previous diet and activity. Referrals: Nile Dahl MD [Primary Care Provider] - Neeraj Smallwood MD [Staff Physician] - Disposition: HOME - Home Medications Comprehensive Discharge Medication List: Ambulatory Orders Aspirin Coated [Ecotrin -] 81 mg PO DAILY tablet.ec 09/04/17 Atorvastatin Ca [Lipitor] 40 mg PO HS tablet 09/04/17 Budesonide/Formeterol Fumarate [SYMBICORT 80/4.5mcg -] 2 puff IH BID inhaler Clopidogrel Bisulfate [Plavix -] 75 mg PO DAILY tablet 09/04/17 Escitalopram Oxalate [Lexapro -] 10 mg PO DAILY tablet 09/04/17 Ipratropium/Albuterol Sulfate [Combivent Respimat 20-100 Mcg] 4 gm IH QID #1 aer.w.adap 09/04/17 Tiotropium [place] [Spiriva] 1 puff IH DAILY inh 09/04/17 Pantoprazole Sodium [Protonix -] 40 mg PO DAILY #10 tablet.ec 03/05/18 Prednisone 5 mg PO DAILY #30 tablet 03/05/18 predniSONE [Deltasone -] 5 mg PO ASDIR #32 tab 03/05/18
[2018-03-05 13:57] VITALS: BP 132/60; PULSE 64; TEMP 98
== END 2018-03-05 14:52 | disposition home or self-care (01) | DRG 191 ==
LOC: JER 12:28 → JERBED 18:23 → J5S 23:32
PROVIDERS: ADMIT Internal Medicine; ATTEND Internal Medicine
DX: J44.1 Chronic obstructive pulmonary disease with (acute) exacerbation (principal); J96.10 Chronic respiratory failure, unspecified whether with hypoxia or hypercapnia; F41.9 Anxiety disorder, unspecified; I25.10 Atherosclerotic heart disease of native coronary artery without angina pectoris; E78.5 Hyperlipidemia, unspecified; I10 Essential (primary) hypertension; R91.1 Solitary pulmonary nodule
CPT/HCPCS: 36415; 71045-TC-FY; 71250-TC; 80048; 80053; 81003; 81015; 82550; 82553; 82803; 83605; 83735; 83880; 84100; 84484; 85025; 85610; 85730; 86850; 86900; 86901; 87040; 87086; 93005; 93010; 94640; 99283-25; J0131; J1644; J7620

== ENCOUNTER 2018-03-30 21:36 | Emergency (ER) | payer OTHER, BC ==
--- NOTE | 2018-03-30 21:44 | PDOC ---
History of Present Illness - General Stated Complaint: CHEST PAIN Time Seen by Provider: 03/30/18 21:44 History Source: Patient Exam Limitations: No Limitations - History of Present Illness Initial Comments: 03/30/18 22:48 87 year old male with PMH COPD, [place](x8 months ago), stent, on Pradaxa, prior nicotine smoker presented to Emergency Department for chest pain since 20:00 today. He localizes his chest pain to the left anterior chest wall, non- radiating, sharp, intermittent, no aggravating or alleviating factors, lasting 10-20 seconds each time. He admits to productive (clear to yellow) cough, rhinorrhea x2 weeks. He denies shortness of breath, palpitations, syncope, lightheadedness, fever, chills, body aches, nausea, vomiting, diarrhea, abdominal pain. Pt states he took 1 baby ASA this AM. He states he does not use home O2 during the day, but uses 2L at night. Cardio - [place] PCP - [facility] - Brill Allergies - NKDA Past History - Past Medical History Allergies/Adverse Reactions: Allergies Allergy/AdvReac Type Severity Reaction Status Date / Time No Known Drug Allergies Allergy Verified 03/30/18 23:39 shrimp Allergy Unknown lip Uncoded 03/30/18 23:39 swelling Home Medications: Ambulatory Orders Aspirin Coated [Ecotrin -] 81 mg PO DAILY tablet.ec 09/04/17 Atorvastatin Ca [Lipitor] 40 mg PO HS tablet 09/04/17 Budesonide/Formeterol Fumarate [SYMBICORT 80/4.5mcg -] 2 puff IH BID inhaler Clopidogrel Bisulfate [Plavix -] 75 mg PO DAILY tablet 09/04/17 Escitalopram Oxalate [Lexapro -] 10 mg PO DAILY tablet 09/04/17 Ipratropium/Albuterol Sulfate [Combivent Respimat 20-100 Mcg] 4 gm IH QID #1 aer.w.adap 09/04/17 Tiotropium [place] [Spiriva] 1 puff IH DAILY inh 09/04/17 Pantoprazole Sodium [Protonix -] 40 mg PO DAILY #10 tablet.ec 03/05/18 predniSONE [Deltasone -] 5 mg PO ASDIR #32 tab 03/05/18 Azithromycin [Zithromax 250mg Tablets -] 250 mg PO UTDICT #6 tab 03/31/18 Anemia: No Asthma: No Cancer: No Cardiac Disorders: Yes (Chest Pain, [place] with stents) CVA: No COPD: Yes CHF: No DVT: No Dementia: No Diabetes: No Dialysis: No GI Disorders: No Disorders: No HTN: Yes Hypercholesterolemia: Yes Kidney Stones: No Liver Disease: No Psychiatric Problems: No Seizures: No Thyroid Disease: No Lung CA: No - Surgical History Abdominal Surgery: No Appendectomy: No Cardiac Surgery: Yes (Cardiac Cath 2014, stents 2017) Cholecystectomy: No Gastric Stapling: No GI Surgery: No Lung Surgery: No Neurologic Surgery: No Orthopedic Surgery: No - Immunization History Td Vaccination: Yes TDAP Vaccination: Yes Immunization Up to Date: Yes - Suicide/Smoking/Psychosocial Hx Smoking Status: Yes Smoking History: Never smoked Have you smoked in the past 12 months: No Number of Cigarettes Smoked Daily: 0 If you are a former smoker, when did you quit?: 40 years ago Cigars Per Day: 0 Hx Alcohol Use: Yes (socially) Drug/Substance Use Hx: No Substance Use Type: None Hx Substance Use Treatment: No Review of Systems - Review of Systems Able to Perform ROS?: Yes Comments:: 03/30/18 22:51 General: denies fever, chills, night sweats, generalized weakness. HEENT: admits to rhinorrhea. denies sore throat, ear pain. Heart: admits to chest pain. denies palpitations, syncope, diaphoresis. Respiratory: admits to cough, sputum production. denies shortness of breath, hemoptysis. Abdomen: denies abdominal pain, nausea, vomiting, diarrhea, constipation, blood in stool. : denies dysuria, increased urinary frequency, hematuria, urinary incontinence , flank pain. Back: denies back pain. Musculoskeletal: denies joint pain, muscle pain, joint swelling. Neurological: denies headache, dizziness, numbness, tingling, weakness. Skin: denies rash, laceration, abrasion. *Physical Exam - Physical Exam Comments: 03/30/18 22:53 Constitutional: Well-nourished, Well-developed, appearing stated age. HEENT: head is normocephalic, atraumatic. EOMI. PERRLA. Neck: supple. Full ROM. Heart: regular rhythm. murmur over mitral area. Lungs: crackles to right base. no stridor. no wheezing. Abdomen: soft, nontender. normal bowel sounds. no rebound, guarding, masses. Extremities: Peripheral pulses intact. No lower extremity edema. Neurological: CN 2-12 grossly intact. Moves all four extremities. Psych: awake, alert, oriented x3. Follows commands. Answers questions appropriately. ED Treatment Course - LABORATORY CBC & Chemistry Diagram: 03/30/18 22:35 03/30/18 22:35 Medical Decision Making - Medical Decision Making 03/30/18 22:54 87 year old male with PMH COPD, HLD, past smoking history presented to ED for intermittent chest pain. Concern for ACS/arrythmia - Pending EKG, cardiac enzymes, coags Concern for pneumonia - Pending CBC, CXR Concern for CHF - Pending CXR, bnp Low concern for PE - unable to PERC out based on age - WELLS = 0 EKG performed at 23:12 - rate 56, regular rhythm, normal axis, normal intervals , no acute ST changes. 03/30/18 23:28 CBC WBC 7.2 K/mm3 (4.0-10.0) 03/30/18 22:35 RBC 4.48 M/mm3 (4.00-5.60) 03/30/18 22:35 Hgb 13.6 GM/dL (11.7-16.9) 03/30/18 22:35 Hct 40.9 % (35.4-49) 03/30/18 22:35 MCV 91.3 fl (80-96) 03/30/18 22:35 MCH 30.5 pg (25.7-33.7) 03/30/18 22:35 MCHC 33.4 g/dl (32.0-35.9) 03/30/18 22:35 RDW 14.3 % (11.9-15.9) 03/30/18 22:35 Plt Count 234 K/MM3 (134-434) 03/30/18 22:35 MPV 7.5 fl (7.5-11.1) 03/30/18 22:35 Absolute Neuts (auto) 4.8 K/mm3 (1.5-8.0) 03/30/18 22:35 Neutrophils % 67.7 % (42.8-82.8) D 03/30/18 22:35 Lymphocytes % 20.8 % (8-40) D 03/30/18 22:35 Monocytes % 7.9 % (3.8-10.2) D 03/30/18 22:35 Eosinophils % 3.2 % (0-4.5) D 03/30/18 22:35 Basophils % 0.4 % (0-2.0) D 03/30/18 22:35 Nucleated RBC % 0 % (0-0) 03/30/18 22:35 No leukocytosis. No anemia. CMP Sodium 143 mmol/L (136-145) 03/30/18 22:35 Potassium 3.9 mmol/L (3.5-5.1) 03/30/18 22:35 Chloride 107 mmol/L (98-107) 03/30/18 22:35 Carbon Dioxide 30 mmol/L (21-32) 03/30/18 22:35 Anion Gap 6 MMOL/L (8-16) L 03/30/18 22:35 BUN 31 mg/dL (7-18) H 03/30/18 22:35 Creatinine 1.1 mg/dL (0.55-1.3) 03/30/18 22:35 Creat Clearance w eGFR > 60 (>60) 03/30/18 22:35 Random Glucose 103 mg/dL (74-106) 03/30/18 22:35 Lactic Acid 1.4 mmol/L (0.4-2.0) 03/30/18 22:35 Calcium 8.7 mg/dL (8.5-10.1) 03/30/18 22:35 Total Bilirubin 0.4 mg/dL (0.2-1) 03/30/18 22:35 AST 19 U/L (15-37) 03/30/18 22:35 ALT 23 U/L (13-61) 03/30/18 22:35 Alkaline Phosphatase 53 U/L (45-117) 03/30/18 22:35 Creatine Kinase 91 IU/L (26-308) 03/30/18 22:35 Troponin I < 0.02 ng/ml (0.00-0.05) 03/30/18 22:35 Total Protein 5.9 g/dl (6.4-8.2) L 03/30/18 22:35 Albumin 3.4 g/dl (3.4-5.0) 03/30/18 22:35 No electrolyte abnormalities. No acute kidney injury. Mild dehydration, BUN 31 without elevation of Cr. - Pt is recieving IV fluids No transaminitis. First Troponin normal. - will repeat - HEART score = 4 INR, PTT INR 1.10 (0.83-1.09) H 03/30/18 22:35 normal INR. BNP normal. 03/31/18 00:02 Pt ambulated without assistance around the Emergency Department. He reported he did not feel it was more difficult than normal for him. states they have an appointment with Dr. Smallwood this week. CXR - no acute lung infiltration. 03/31/18 00:12 I signed this patient out to Dr. Romero, who will assume care for the patient while he is in the Emergency Department. *DC/Admit/Observation/Transfer Diagnosis at time of Disposition: COPD exacerbation Chest pain Qualifiers: Chest pain type: unspecified Qualified Code(s): R07.9 - Chest pain, unspecified - Discharge Dispostion Disposition: HOME Condition at time of disposition: Improved - Prescriptions Prescriptions: Azithromycin [Zithromax 250mg Tablets -] 250 mg PO UTDICT #6 tab - Referrals Referrals: Nile Dahl MD [Primary Care Provider] - - Patient Instructions Printed Discharge Instructions: DI for Chest Pain - Post Discharge Activity
[2018-03-30] MEDS ORDERED: ASPIRIN 81 MG CHEWABLE TABLETS PO ONE ×2 (22:07)
[2018-03-30] MEDS ORDERED: SODIUM CHLORIDE 1,000 ML IV STA (22:08)
--- NOTE | 2018-03-30 22:11 | PDOC ---
Attending Attestation - Resident Resident Name: GigiJenae - ED Attending Attestation I have performed the following: I have examined & evaluated the patient, The case was reviewed & discussed with the resident, I agree w/resident's findings & plan, Exceptions are as noted - HPI HPI: 03/30/18 22:11 87y M hx of COPD, CAD, presents with intermittent episodes of chest pain starting this evening, lasting for minutes at a time and is sharp in nature. pt also endorses cough productive of whitish/yellowish sputum w/o associated hernandez, fever/chills, calf pain, hemoptysis. on exam pt in no distress, well appearing pulm clear to ascultation card: rrr, no mrg le: mild edema w/o calf tenderness, neg homans sign ddx: will r/o acs, cxr to r/o pna, poss copd exacerbation with increased cough and sputum prduction will reasess - Physicial Exam PE: 03/31/18 05:40 see above - Medical Decision Making 03/31/18 00:01 pts labs unremarkble trop neg x 1 pt abmulatory here w/o sob pts pain atypical of acs, but will obtain 2nd trop to trend if pt remains asymptmoatic anticipate d/c with pmd fu Heart Score/ECG Review - ECG Impressions Comment:: 03/31/18 05:41 Twelve-lead EKG was performed and reviewed by me. There is normal sinus rhythm with a rate of 56 The axis is normal. The intervals are normal. There is normal R wave progression There are no ST or T wave abnormalities. Impression: sinus bradycardia
[2018-03-30 22:55] LABS: BASO % 0.4 % (0-2.0); EOS % 3.2 % (0-4.5); HEMATOCRIT 40.9 % (35.4-49); HEMOGLOBIN 13.6 GM/dL (11.7-16.9); LYMPH % 20.8 % (8-40); MCH 30.5 pg (25.7-33.7); MCHC 33.4 g/dl (32.0-35.9); MEAN CELL VOLUME 91.3 fl (80-96); MEAN PLT VOLUME 7.5 fl (7.5-11.1); MONO % 7.9 % (3.8-10.2); NEUT % 67.7 % (42.8-82.8); PLATELET COUNT 234 K/MM3 (134-434); RBC 4.48 M/mm3 (4.00-5.60); RDW 14.3 % (11.9-15.9); WHITE BLOOD COUNT 7.2 K/mm3 (4.0-10.0)
[2018-03-30 22:56] LABS: VENOUS PH 7.41 (7.32-7.42)
[2018-03-30 23:07] LABS: INR 1.1 (0.83-1.09)
[2018-03-30] MEDS ORDERED: ASPIRIN 81 MG CHEWABLE TABLETS ONE (23:10)
[2018-03-30 23:19] VITALS: BP 155/72; PULSE 65; TEMP 98.5; BMI 53.7
[2018-03-30 23:20] LABS: ALBUMIN 3.4 g/dl (3.4-5.0); ALK PHOS 53 U/L (45-117); ANION GAP 6 MMOL/L (8-16); BILIRUBIN,TOTAL 0.4 mg/dL (0.2-1); BLOOD UREA NITROGEN 31 mg/dL (7-18); CALCIUM 8.7 mg/dL (8.5-10.1); CHLORIDE 107 mmol/L (98-107); CO2 30 mmol/L (21-32); CREATININE 1.1 mg/dL (0.55-1.3); GLUCOSE,RANDOM 103 mg/dL (74-106); POTASSIUM 3.9 mmol/L (3.5-5.1); SGOT/AST 19 U/L (15-37); SGPT/ALT 23 U/L (13-61); SODIUM 143 mmol/L (136-145); TOT PROT 5.9 g/dl (6.4-8.2)
--- NOTE | 2018-03-31 01:58 | PDOC ---
*Physical Exam - Vital Signs Last Vital Signs Temp Pulse Resp BP Pulse Ox 98.5 F 65 18 155/72 96 03/30/18 21:50 03/30/18 21:50 03/30/18 21:50 03/30/18 21:50 03/30/18 21:50 ED Treatment Course - LABORATORY CBC & Chemistry Diagram: 03/30/18 22:35 03/30/18 22:35 - ADDITIONAL ORDERS Additional order review: Laboratory Results 03/30/18 03/30/18 03/30/18 22:58 22:35 22:35 PT with INR 13.00 INR 1.10 H PTT (Actin FS) VBG pH 7.41 POC VBG pCO2 45.0 POC VBG pO2 41.0 D Mixed VBG HCO3 28.0 H Sodium Potassium Chloride Carbon Dioxide Anion Gap BUN Creatinine Creat Clearance w eGFR Random Glucose Lactic Acid Calcium Total Bilirubin AST ALT Alkaline Phosphatase Creatine Kinase Troponin I B-Natriuretic Peptide 128.2 Total Protein Albumin 03/30/18 03/30/18 03/30/18 22:35 22:35 22:35 PT with INR INR PTT (Actin FS) 27.5 VBG pH POC VBG pCO2 POC VBG pO2 Mixed VBG HCO3 Sodium 143 Potassium 3.9 Chloride 107 Carbon Dioxide 30 Anion Gap 6 L BUN 31 H Creatinine 1.1 Creat Clearance w eGFR > 60 Random Glucose 103 Lactic Acid 1.4 Calcium 8.7 Total Bilirubin 0.4 AST 19 ALT 23 Alkaline Phosphatase 53 Creatine Kinase 91 Troponin I < 0.02 B-Natriuretic Peptide Total Protein 5.9 L Albumin 3.4 03/30/18 22:35 RBC 4.48 MCV 91.3 MCHC 33.4 RDW 14.3 MPV 7.5 Neutrophils % 67.7 D Lymphocytes % 20.8 D Monocytes % 7.9 D Eosinophils % 3.2 D Basophils % 0.4 D - Medications Given in the ED: ED Medications Discontinued Medications Generic Name Dose Route Start Last Admin Trade Name Freq PRN Reason Stop Dose Admin Aspirin 81 mg 03/30/18 22:07 03/30/18 23:18 Asa - PO 03/30/18 22:08 81 mg ONCE ONE Administration Aspirin 162 mg 03/30/18 22:07 03/30/18 23:18 Asa - PO 03/30/18 22:08 162 mg ONCE ONE Administration Sodium Chloride 1,000 mls @ 1,000 mls/hr 03/30/18 22:08 03/30/18 22:10 Normal Saline - IV 03/30/18 23:07 1,000 mls/hr ASDIR STA Administration Medical Decision Making - Medical Decision Making I have assumed care of the patient from Dr. Yu, who has discussed the clinical presentation, work-up, and ED course thus far. I have reviewed the patients medical record and ED course and agree with all aspects of care thus far. Repeat trop I 03/31/18 01:57 Rx for Z-mireya sent to pharmacy specified Repeat Trop I neg Plan for D/C Discharge instructions and return precautions given Patient verbalized understanding and is in agreement Dispo: Home w/ PCP f/u 03/31/18 02:01 *DC/Admit/Observation/Transfer Diagnosis at time of Disposition: COPD exacerbation Chest pain Qualifiers: Chest pain type: unspecified Qualified Code(s): R07.9 - Chest pain, unspecified - Discharge Dispostion Disposition: HOME Condition at time of disposition: Improved Decision to Admit order: No - Prescriptions Prescriptions: Azithromycin [Zithromax 250mg Tablets -] 250 mg PO UTDICT #6 tab - Referrals Referrals: Nile Dahl MD [Primary Care Provider] - - Patient Instructions Printed Discharge Instructions: DI for Chest Pain - Post Discharge Activity
--- NOTE | 2018-03-31 10:38 | EKG ---
Test Reason : Blood Pressure : / mmHG Vent. Rate : 056 BPM Atrial Rate : 056 BPM P-R Int : 164 ms QRS Dur : 096 ms QT Int : 442 ms P-R-T Axes : 024 -28 052 degrees QTc Int : 426 ms SINUS BRADYCARDIA OTHERWISE NORMAL ECG WHEN COMPARED WITH ECG OF 28-FEB-2018 13:41, NO SIGNIFICANT CHANGE WAS FOUND Confirmed by BRIAN CHOE MD ([id number]) on 03/31/2018 10:37:56 AM Referred By: Confirmed By:BRIAN CHOE MD
== END 2018-03-31 03:44 | disposition home or self-care (01) ==
LOC: JER 21:36
PROC: 3E0337Z Introduction of Electrolytic and Water Balance Substance into Peripheral Vein, Percutaneous Approach (ICD-10-PCS; principal; 2018-03-30)
DX: J44.1 Chronic obstructive pulmonary disease with (acute) exacerbation (principal); I25.10 Atherosclerotic heart disease of native coronary artery without angina pectoris; Z95.5 Presence of coronary angioplasty implant and graft; I10 Essential (primary) hypertension; I25.2 Old myocardial infarction; Z79.01 Long term (current) use of anticoagulants
CPT/HCPCS: 36415; 71045-TC-FY; 80053; 82550; 82803; 83605; 83880; 84484; 85025; 85610; 85730; 87040; 93005; 93010; 96360; 99284-25; J7030

== ENCOUNTER 2018-06-01 18:48 | Observation (INO) | payer OTHER, BC ==
[2018-06-01 19:08] VITALS: BMI 24.3
--- NOTE | 2018-06-01 19:28 | PDOC ---
History of Present Illness - General Chief Complaint: Cold Symptoms Stated Complaint: SHORTNESS OF BREATH Time Seen by Provider: 06/01/18 18:55 History Source: Patient, Spouse Exam Limitations: No Limitations - History of Present Illness Initial Comments: 06/01/18 19:23 Pt is an 87yo M with PMH of CAD s/p stent 2017, COPD, HTN, HLD (on 2L at home), BIBA for shortness of breath and chills that started yesterday. Per , pt has been lethargic all week and then started coughing up yellow to clear phlegm 2 days ago. They called Dr. Smallwood who prescribed Levaquin. Pt says that he started to feel more short of breath starting yesterday while at rest and still felt the same today. He admits to chills, subjective fevers, chest pain with coughing. He denies syncope, abdominal pain, n/v/d, urinary symptoms. He is on Plavix. PMD: [place] Pulm: Cl Cards: [place] PMH: see hpi PSH: stent Meds: see med rec Allergies: nkda Past History - Past Medical History Allergies/Adverse Reactions: Allergies Allergy/AdvReac Type Severity Reaction Status Date / Time No Known Drug Allergies Allergy Verified 06/01/18 19:03 shrimp Allergy Unknown lip Uncoded 06/01/18 19:03 swelling Home Medications: Ambulatory Orders Aspirin Coated [Ecotrin -] 81 mg PO DAILY tablet.ec 09/04/17 Atorvastatin Ca [Lipitor] 40 mg PO HS tablet 09/04/17 Budesonide/Formeterol Fumarate [SYMBICORT 80/4.5mcg -] 2 puff IH BID inhaler Clopidogrel Bisulfate [Plavix -] 75 mg PO DAILY tablet 09/04/17 Escitalopram Oxalate [Lexapro -] 10 mg PO DAILY tablet 09/04/17 Ipratropium/Albuterol Sulfate [Combivent Respimat 20-100 Mcg] 4 gm IH QID #1 aer.w.adap 09/04/17 Tiotropium [place] [Spiriva] 1 puff IH DAILY inh 09/04/17 predniSONE [Deltasone -] 5 mg PO ASDIR #32 tab 03/05/18 Azithromycin [Zithromax 250mg Tablets -] 250 mg PO UTDICT #6 tab 03/31/18 Ranitidine [Zantac -] 150 mg PO DAILY 06/01/18 Anemia: No Asthma: No Cancer: No Cardiac Disorders: Yes (Chest Pain, [place] with stents) CVA: No COPD: Yes CHF: No DVT: No Dementia: No Diabetes: No Dialysis: No GI Disorders: No Disorders: No HTN: Yes Hypercholesterolemia: Yes Kidney Stones: No Liver Disease: No Psychiatric Problems: No Seizures: No Thyroid Disease: No Lung CA: No - Surgical History Abdominal Surgery: No Appendectomy: No Cardiac Surgery: Yes (Cardiac Cath 2014, stents 2017) Cholecystectomy: No Gastric Stapling: No GI Surgery: No Lung Surgery: No Neurologic Surgery: No Orthopedic Surgery: No - Immunization History Td Vaccination: Yes TDAP Vaccination: Yes Immunization Up to Date: Yes - Suicide/Smoking/Psychosocial Hx Smoking Status: Yes Smoking History: Former smoker Have you smoked in the past 12 months: Yes Number of Cigarettes Smoked Daily: 0 If you are a former smoker, when did you quit?: 40 years ago Cigars Per Day: 0 Information on smoking cessation initiated: No Hx Alcohol Use: No Drug/Substance Use Hx: No Substance Use Type: None Hx Substance Use Treatment: No Review of Systems - Review of Systems Constitutional: Yes: Chills, Fever, Malaise HEENTM: No: Symptoms Reported Respiratory: Yes: Cough, Shortness of Breath, SOB with Exertion, SOB at Rest, Productive cough. No: Hemoptysis Cardiac (ROS): Yes: Chest Pain (with cough). No: Lightheadedness, Palpitations , Syncope ABD/GI: No: Constipated, Diarrhea, Nausea, Vomiting : No: Burning, Dysuria, Hematuria Musculoskeletal: No: Back Pain, Muscle Weakness, Neck Pain Integumentary: No: Symptoms Reported Neurological: No: Headache, Numbness, Tingling, Weakness *Physical Exam - Vital Signs Last Vital Signs Temp Pulse Resp BP Pulse Ox 98.7 F 73 20 134/74 97 06/01/18 19:04 06/01/18 19:04 06/01/18 19:04 06/01/18 19:04 06/01/18 19:04 - Physical Exam General Appearance: Yes: Nourished, Appropriately Dressed, Mild Distress HEENT: positive: EOMI, JIHAN Neck: positive: Trachea midline, Supple. negative: Lymphadenopathy (R), Lymphadenopathy (L) Respiratory/Chest: positive: Lungs Clear, Decreased Breath Sounds. negative: Paradoxal Breathing, Crackles, Rales, Rhonchi Cardiovascular: positive: Regular Rhythm, Regular Rate, S1, S2. negative: Edema , JVD, Murmur Vascular Pulses: Carotid (R): 2+, Carotid (L): 2+, Dorsalis-Pedis (R): 2+, Doralis-Pedis (L): 2+ Gastrointestinal/Abdominal: positive: Normal Bowel Sounds, Soft. 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 II-XII NML intact, Fully Oriented, Alert, Normal Mood/ Affect, Normal Response, Motor Strength 5/5 Moderate Sedation - Procedure Monitoring Vital Signs: Procedure Monitoring Vital Signs Temperature 98.7 F 06/01/18 19:04 Pulse Rate 73 06/01/18 19:04 Respiratory Rate 20 06/01/18 19:04 Blood Pressure 134/74 06/01/18 19:04 O2 Sat by Pulse Oximetry (%) 97 06/01/18 19:04 ED Treatment Course - LABORATORY CBC & Chemistry Diagram: 06/01/18 19:45 06/01/18 19:45 - RADIOLOGY Radiology Studies Ordered: Category Date Time Status CHEST X-RAY PORTABLE* [RAD] Stat Radiology 06/01/18 19:00 Ordered Medical Decision Making - Medical Decision Making 06/01/18 19:29 Pt is an 87yo M with PMH of CAD s/p stent 2017, COPD, HTN, HLD (on 2L at home), BIBA for shortness of breath and chills that started yesterday. Per , pt has been lethargic all week and then started coughing up yellow to clear phlegm 2 days ago. They called Dr. Smallwood who prescribed Levaquin. Pt says that he started to feel more short of breath starting yesterday while at rest and still felt the same today. He admits to chills, subjective fevers, chest pain with coughing. He denies syncope, abdominal pain, n/v/d, urinary symptoms. He is on Plavix. Vitals: wnl (on PE: decreased breath sounds bilaterally DDx includes but not limited to: PNA, COPD exacerbation, ACS, PE, carditis, pneumonitis, other infectious processes, -EKG, CXR, cbc, cmp, UA ordered. Will give DuoNeb. Holding of on solu-medrol until xray. pt saying chest pain is from coughing, will hold off on ASA at this time. Low suspicion for PE given normal vital signs and pt on Plavix. 06/01/18 22:17 EKG shows accelerated junctional rhythm, left axis deviation. No SULMA or depressions. leads v1-v3 are shaky. CXR: compared to prior cxr, no new consolidations. After duoneb, lungs sounded clear. CBC shows normal white count. CMP wnl. UA shows 3+LE with 100+ bacteria. Pt has been taking Levaquin, perhaps bacteria is resistant. Ucx sent. Pt started on Ceftriaxone and 500cc fluids. Will admit for complicated UTI. *DC/Admit/Observation/Transfer Diagnosis at time of Disposition: Complicated UTI (urinary tract infection) - Discharge Dispostion Condition at time of disposition: Good Decision to Admit order: Yes - Referrals - Patient Instructions - Post Discharge Activity
[2018-06-01] MEDS ORDERED: ALBUTEROL SO4 2.5/IPRATROPIUM 0.5 INH SOL 3 ML VIAL.NEB. NEB ONE ×2 (19:29→19:47)
--- NOTE | 2018-06-01 19:43 | PDOC ---
Attending Attestation - HPI HPI: Patient is an 87 year old male with PMHx of CAD s/p stent 2017, COPD, HTN, HLD ( on 2L at home), BIBA for shortness of breath that started yesterday. As per patient's patient has been experiencing general malaise all week along with shaking, chills, and weakness. She also notes productive cough (yellow sputum) since Saturday. They called Dr. Smallwood who prescribed a Z-pack with some relief. However, yesterday felt sob while at rest and continues to feel sob today. He admits to chills, subjective fevers, chest pain with coughing. He denies syncope, abdominal pain, n/v/d, urinary symptoms. PMD: [place] Pulm: Cl Cards: [place] - Physicial Exam PE: WELL NOURISHED WELL DEVELOPED 87 WHO PRESENTS FOR MALAISE, SHAKING CHILLS, WEAKNESS, SOB. GENERAL: AO X3 HEAD: A TRAUMATIC, NORMOCEPHALIC NECK:SUPPLE, NO BRUITS, NO JVD LUNGS: CLEAR HEART:RRR ABDOMEN: SOFT, NONTENDER,, NO REBOUND OR GUARDING. EXTREMITIES: 3+ B/L LE PITTING EDEMA NEURO: AOX3, AMBULATORY 06/01/18 20:32 <Corin Estrada - Last Filed: 06/01/18 20:24> - Resident Resident Name: Pushpa Suh - ED Attending Attestation I have performed the following: I have examined & evaluated the patient, The case was reviewed & discussed with the resident, I agree w/resident's findings & plan, Exceptions are as noted - Medical Decision Making 06/02/18 01:14 pt found to have UTI,shaking chills and was admitted for IV antibiotics <Lila Dowd - Last Filed: 06/02/18 01:16>
[2018-06-01 20:08] LABS: BASO % 0.3 % (0-2.0); EOS % 0.6 % (0-4.5); HEMATOCRIT 38.7 % (35.4-49); HEMOGLOBIN 13.6 GM/dL (11.7-16.9); LYMPH % 7.5 % (8-40); MCH 31.1 pg (25.7-33.7); MCHC 35.1 g/dl (32.0-35.9); MEAN CELL VOLUME 88.7 fl (80-96); MEAN PLT VOLUME 7.9 fl (7.5-11.1); MONO % 6.1 % (3.8-10.2); NEUT % 85.5 % (42.8-82.8); PLATELET COUNT 213 K/MM3 (134-434); RBC 4.37 M/mm3 (4.00-5.60); RDW 13.9 % (11.9-15.9); WHITE BLOOD COUNT 10.1 K/mm3 (4.0-10.0)
[2018-06-01 20:22] LABS: INR 1.26 (0.83-1.09); PROTHROMBIN TIME (PATIENT) 14.9 SEC (9.7-13.0)
[2018-06-01 20:25] LABS: VENOUS PC02 51.6 mmHg (38-52); VENOUS PH 7.37 (7.32-7.42); VENOUS PO2 36.8 mmHg (28-48)
[2018-06-01 20:35] LABS: ALBUMIN 3.4 g/dl (3.4-5.0); ALK PHOS 57 U/L (45-117); ANION GAP 10 MMOL/L (8-16); BILIRUBIN,TOTAL 0.7 mg/dL (0.2-1); BLOOD UREA NITROGEN 23 mg/dL (7-18); CALCIUM 8.3 mg/dL (8.5-10.1); CHLORIDE 104 mmol/L (98-107); CO2 28 mmol/L (21-32); CREATININE 0.9 mg/dL (0.55-1.3); GLUCOSE,RANDOM 98 mg/dL (74-106); MAGNESIUM 1.9 mg/dL (1.8-2.4); POTASSIUM 3.7 mmol/L (3.5-5.1); SGOT/AST 14 U/L (15-37); SGPT/ALT 16 U/L (13-61); SODIUM 142 mmol/L (136-145); TOT PROT 5.9 g/dl (6.4-8.2)
[2018-06-01 21:41] LABS: URINE APPEARANCE SLCLOUDY; URINE BILIRUBIN NEGATIVE (<2.0 mg/dL); URINE COLOR YELLOW; URINE GLUCOSE (UA) NEGATIVE (NEGATIVE); URINE KETONE NEGATIVE (NEGATIVE); URINE LEUK ESTERASE 3+ (NEGATIVE); URINE NITRITE NEGATIVE (NEGATIVE); URINE PROTEIN NEGATIVE (NEGATIVE); URINE UROBILINOGEN NEGATIVE mg/dL (0.2-1.0)
[2018-06-01 22:03] LABS: CALCIUM OXALATE CRYSTALS FEW /hpf (NONE SEEN); EPI CELLS RARE /HPF (FEW); URINE MUCUS RARE
[2018-06-01] MEDS ORDERED: CEFTRIAXONE 1,000 MG in DEXTROSE 5%-WATER - 50 ML IVPB ONE (22:10)
[2018-06-01] MEDS ORDERED: SODIUM CHLORIDE 500 ML IV STA (22:13)
[2018-06-01] MEDS ORDERED: CEFTRIAXONE 1 GM/50 ML BAG ONE (22:21)
--- NOTE | 2018-06-01 22:26 | PN ---
Teaching Attending Note Name of Resident: Dalton Gomez ATTENDING PHYSICIAN STATEMENT I saw and evaluated the patient. I reviewed the resident's note and discussed the case with the resident. I agree with the resident's findings and plan as documented. SUBJECTIVE: Patient is an 87 year old man with PMH of CAD s/p stent 2017, COPD (on 2L Home Oxygen), HTN and HLD who presents with shortness of breath that started yesterday. As per patient's patient has been experiencing general malaise all week along with shaking, chills, and weakness. She also notes productive cough (yellow sputum) since Saturday. They called Dr. Smallwood who prescribed a Z- pack with some relief. However, yesterday felt sob while at rest and continues to feel sob today. He admits to chills, subjective fevers, chest pain with coughing. He denies abdominal pain, vomiting, diarrhea or urinary symptoms. OBJECTIVE: Alert Vital Signs Period Temp Pulse Resp BP Sys/Donovan Pulse Ox Last 24 Hr 98.7 F 73 20 134/74 97-100 HEENT: No Jaundice, eye redness or discharge, PERRLA, EOMI. Normocephalic, atraumatic. External ears are normal and hearing is grossly intact. No nasal discharge. Neck: Supple, nontender. No palpable adenopathy or thyromegaly. No JVD Chest: Good effort. Wheezing. Clear to percussion. Heart: Regular. No S3, rub or murmur Abdomen: Not distended, soft, nontender and no HSM. No rebound or guarding. Normoactive bowel sounds. Ext: Peripheral pulses intact. Pedal edema. Skin: Warm and dry. No petechiae, rash or ecchymosis. Neuro: Alert. Oriented x3. CN 2-12 grossly intact. Sensation grossly intact in all four extremities and DTR are symmetric. Current Medications Generic Name Dose Route Start Last Admin Trade Name Freq PRN Reason Stop Dose Admin Ceftriaxone Sodium 1,000 mg/ 50 mls @ 100 mls/hr 06/01/18 22:10 Dextrose IVPB 06/01/18 22:39 ONCE ONE Sodium Chloride 500 mls @ 1,000 mls/hr 06/01/18 22:13 Normal Saline - IV 06/01/18 22:42 ASDIR STA Home Medications Medication Instructions Recorded Aspirin Coated [Ecotrin -] 81 mg PO DAILY tablet.ec 09/04/17 Atorvastatin Ca [Lipitor] 40 mg PO HS tablet 09/04/17 Budesonide/Formeterol Fumarate 2 puff IH BID inhaler 09/04/17 [SYMBICORT 80/4.5mcg -] Clopidogrel Bisulfate [Plavix -] 75 mg PO DAILY tablet 09/04/17 Escitalopram Oxalate [Lexapro -] 10 mg PO DAILY tablet 09/04/17 Ipratropium/Albuterol Sulfate 4 gm IH QID #1 aer.w.adap 09/04/17 [Combivent Respimat 20-100 Mcg] Tiotropium [place] [Spiriva] 1 puff IH DAILY inh 09/04/17 predniSONE [Deltasone -] 5 mg PO ASDIR #32 tab 03/05/18 Azithromycin [Zithromax 250mg 250 mg PO UTDICT #6 tab 03/31/18 Tablets -] Ranitidine [Zantac -] 150 mg PO DAILY 06/01/18 Abnormal Lab Results 06/01/18 06/01/18 06/01/18 19:45 19:45 19:45 WBC 10.1 H Absolute Neuts (auto) 8.7 H Neutrophils % 85.5 H D Lymphocytes % 7.5 L D PT with INR 14.90 H INR 1.26 H Mixed VBG HCO3 29.4 H BUN Calcium AST Total Protein Urine Blood Ur Leukocyte Esterase 06/01/18 06/01/18 19:45 21:20 WBC Absolute Neuts (auto) Neutrophils % Lymphocytes % PT with INR INR Mixed VBG HCO3 BUN 23 H Calcium 8.3 L AST 14 L Total Protein 5.9 L Urine Blood 1+ H Ur Leukocyte Esterase 3+ H ASSESSMENT AND PLAN: 1. UTI - Being treated with IV rocephin pending culture report. Noted to be wheezing on arrival in the ER and responded to Duoneb. Will continue treatment for COPD exacerbation with duoneb, symbicort and solumedrol. CXR shows hyperinflation with chronic lung scarring and upper lobe masses (chronic). No ST -T wave changes on EKG. Will get an ECHO to evaluate pedal edema. 2. DVT prophylaxis - Lovenox 40 mg SQ q 24 hours. 3. Advance directives - Full code
[2018-06-01] MEDS ORDERED: ALBUTEROL SO4 0.083% IH SOL 2.5 MG/3 ML VIAL.NEB. NEB PRN (23:08)
--- NOTE | 2018-06-01 23:25 | HP ---
CHIEF COMPLAINT: SOB, chills PCP: Dr. Dalh Pulm: Dr. Smallwood Cardiology: Dr. Orr HISTORY OF PRESENT ILLNESS: Patient is an 87 y/o M w/ PMHx COPD on 2L, CAD s/p stent in 2017, HTN, HLD, BIBEMS for worsening SOB and chills. Has had malaise, cough productive of yellow sputum, SOB at rest, lethargy for past week. Contacted Dr. Smallwood who prescribed PO Levaquin 2 days ago. Symptoms continued to worsen and over past day Pt developed "shaking chills." Additionally c/o subjective fever, chest pain only with coughing. Denies syncope, abd pain, n/v/c/d, any urinary symptoms. In ED, VS are wnl, no leukocytosis, chemistries wnl, flu swab negative , wheezing and dyspnea improved with administration of duonebs. However UA positive for 3+ LE, 115 WBC. Pt resting comfortably at time of encounter. ER course was notable for: (1) UA: 3+ LE, 115 WBC (2) (3) Recent Travel: PAST MEDICAL HISTORY: As per HPI PAST SURGICAL HISTORY: As per HPI Social History: Smoking: former smoker Alcohol: Drugs: Family History: Allergies No Known Drug Allergies Allergy (Verified 06/01/18 19:03) shrimp Allergy (Unknown, Uncoded 06/01/18 19:03) lip swelling HOME MEDICATIONS: Home Medications Medication Instructions Recorded Aspirin Coated [Ecotrin -] 81 mg PO DAILY tablet.ec 09/04/17 Atorvastatin Ca [Lipitor] 40 mg PO HS tablet 09/04/17 Budesonide/Formeterol Fumarate 2 puff IH BID inhaler 09/04/17 [SYMBICORT 80/4.5mcg -] Clopidogrel Bisulfate [Plavix -] 75 mg PO DAILY tablet 09/04/17 Escitalopram Oxalate [Lexapro -] 10 mg PO DAILY tablet 09/04/17 Ipratropium/Albuterol Sulfate 4 gm IH QID #1 aer.w.adap 09/04/17 [Combivent Respimat 20-100 Mcg] Tiotropium [place] [Spiriva] 1 puff IH DAILY inh 09/04/17 predniSONE [Deltasone -] 5 mg PO ASDIR #32 tab 03/05/18 Azithromycin [Zithromax 250mg 250 mg PO UTDICT #6 tab 03/31/18 Tablets -] Ranitidine [Zantac -] 150 mg PO DAILY 06/01/18 REVIEW OF SYSTEMS As per HPI PHYSICAL EXAMINATION Vital Signs - 24 hr 06/01/18 06/01/18 06/01/18 19:04 20:29 22:43 Temperature 98.7 F Pulse Rate 73 Pulse Rate [ 65 Left] Respiratory 20 18 Rate Blood Pressure 134/74 Blood Pressure 105/59 L [Right Arm] O2 Sat by Pulse 97 100 100 Oximetry (%) GENERAL: A&Ox3, NAD HEAD: NC/AT EYES: PERRLA, EOMI EARS, NOSE, THROAT: Moist mucous membranes. NECK: Normal range of motion, supple without lymphadenopathy, JVD, or masses. LUNGS: mild expiratory wheezing at middle and lower lung ferrer HEART: RRR no m/r/g ABDOMEN: +bs, soft, NT, ND MUSCULOSKELETAL: No CVA tenderness. UPPER EXTREMITIES: 2+ pulses, warm, well-perfused. No cyanosis. No clubbing. No peripheral edema. LOWER EXTREMITIES: 2+ pulses, warm, well-perfused. No calf tenderness. +venous stasis. +1+ pitting edema b/l NEUROLOGICAL: Cranial nerves II-XII intact. Normal speech. Normal gait. PSYCHIATRIC: Cooperative. Good eye contact. Appropriate mood and affect. SKIN: Warm, dry, normal turgor Laboratory Results - last 24 hr 06/01/18 06/01/18 06/01/18 19:45 19:45 19:45 WBC 10.1 H RBC 4.37 Hgb 13.6 Hct 38.7 MCV 88.7 MCH 31.1 MCHC 35.1 RDW 13.9 Plt Count 213 MPV 7.9 Absolute Neuts (auto) 8.7 H Neutrophils % 85.5 H D Lymphocytes % 7.5 L D Monocytes % 6.1 Eosinophils % 0.6 D Basophils % 0.3 Nucleated RBC % 0 PT with INR 14.90 H INR 1.26 H PTT (Actin FS) 29.0 VBG pH 7.37 POC VBG pCO2 51.6 POC VBG pO2 36.8 Mixed VBG HCO3 29.4 H Sodium Potassium Chloride Carbon Dioxide Anion Gap BUN Creatinine Creat Clearance w eGFR Random Glucose Calcium Magnesium Total Bilirubin AST ALT Alkaline Phosphatase Troponin I Total Protein Albumin Urine Color Urine Appearance Urine pH Ur Specific [place] Urine Protein Urine Glucose (UA) Urine Ketones Urine Blood Urine Nitrite Urine Bilirubin Urine Urobilinogen Ur Leukocyte Esterase Urine WBC (Auto) Urine RBC (Auto) Ur Epithelial Cells Calcium Oxalate Crystal Urine Mucus Influenza A (Rapid) Influenza B (Rapid) 06/01/18 06/01/18 06/01/18 19:45 20:51 21:20 WBC RBC Hgb Hct MCV MCH MCHC RDW Plt Count MPV Absolute Neuts (auto) Neutrophils % Lymphocytes % Monocytes % Eosinophils % Basophils % Nucleated RBC % PT with INR INR PTT (Actin FS) VBG pH POC VBG pCO2 POC VBG pO2 Mixed VBG HCO3 Sodium 142 Potassium 3.7 Chloride 104 Carbon Dioxide 28 Anion Gap 10 BUN 23 H Creatinine 0.9 Creat Clearance w eGFR > 60 Random Glucose 98 Calcium 8.3 L Magnesium 1.9 Total Bilirubin 0.7 AST 14 L ALT 16 Alkaline Phosphatase 57 Troponin I 0.02 Total Protein 5.9 L Albumin 3.4 Urine Color Yellow Urine Appearance Slcloudy Urine pH 5.0 Ur Specific [place] 1.016 Urine Protein Negative Urine Glucose (UA) Negative Urine Ketones Negative Urine Blood 1+ H Urine Nitrite Negative Urine Bilirubin Negative Urine Urobilinogen Negative Ur Leukocyte Esterase 3+ H Urine WBC (Auto) 115 Urine RBC (Auto) 1 Ur Epithelial Cells Rare Calcium Oxalate Crystal Few Urine Mucus Rare Influenza A (Rapid) Negative Influenza B (Rapid) Negative ASSESSMENT/PLAN: 87 y/o M w PMHx COPD, CAD, HTN, HLD p/w SOB, cough, malaise x 1 week, worsening SOB and "shaking chills" since yesterday despite outpt Tx w/ Levaquin. Admitted for UTI on biochemical evidence. #UTI -UA: 3+ LE, 115 WBC -UCx sent -no prior history per patient -empiric ceftriaxone -no sepsis criteria met #COPD -cannot r/o exacerbation at this time, will treat empirically -Solumedrol 40 daily -Duonebs standing, Albuterol PRN -Symbicort -no evidence of pneumonia -requires med rec #cardiac -BP wnl, BP meds unknown -reports taking "water pill," no diuretic among known home meds -requires med rec -echo ordered given edema (none recent) -restarted ASA, plavix, statin #FEN -no IVF -monitor lytes -regular diet #PPx -DVT: heparin -GI: not indicated #code -full #dispo -obs at this time Visit type - Emergency Visit Emergency Visit: Yes Care time: The patient presented to the Emergency Department on the above date and was hospitalized for further evaluation of their emergent condition. - New Patient This patient is new to me today: Yes Date on this admission: 06/01/18 - Critical Care Critical Care patient: No
[2018-06-02] MEDS: ALBUTEROL SO4 2.5/IPRATROPIUM 0.5 INH SOL 3 ML VIAL.NEB. NEB SCH ×4 (01:05→11:00)
[2018-06-02] MEDS: HEPARIN NA (PORCINE) 5,000 UNITS/ML 1ML VIAL SQ SCH ×4 (01:08→21:48)
[2018-06-02] MEDS: methylPREDNISolone NA SUCC 40 MG/1 ML VIAL IVPUSH SCH ×2 (01:08→10:11)
[2018-06-02] MEDS: BUDESONIDE/FORMETEROL FUMARATE 80/4.5 mcg INHALER IH SCH ×2 (01:08→10:12)
[2018-06-02 07:36] LABS: BASO % 0.4 % (0-2.0); EOS % 0.4 % (0-4.5); HEMATOCRIT 43.7 % (35.4-49); HEMOGLOBIN 14.4 GM/dL (11.7-16.9); LYMPH % 9.5 % (8-40); MCHC 33.1 g/dl (32.0-35.9); MEAN CELL VOLUME 90.7 fl (80-96); MEAN PLT VOLUME 8.2 fl (7.5-11.1); NEUT % 88.7 % (42.8-82.8); PLATELET COUNT 231 K/MM3 (134-434); RBC 4.81 M/mm3 (4.00-5.60); RDW 13.8 % (11.9-15.9); WHITE BLOOD COUNT 9.1 K/mm3 (4.0-10.0)
[2018-06-02 08:28] LABS: ANION GAP 9 MMOL/L (8-16); BLOOD UREA NITROGEN 24 mg/dL (7-18); CALCIUM 8.8 mg/dL (8.5-10.1); CHLORIDE 103 mmol/L (98-107); CO2 28 mmol/L (21-32); GLUCOSE,RANDOM 131 mg/dL (74-106); MAGNESIUM 2.1 mg/dL (1.8-2.4); PHOSPHOROUS 3.5 mg/dL (2.5-4.9); POTASSIUM 4.4 mmol/L (3.5-5.1); SODIUM 140 mmol/L (136-145)
[2018-06-02] MEDS ORDERED: PT OWN MED DRAWER 7, Y5N ONE ×2 (09:34→21:33)
[2018-06-02] MEDS ORDERED: DEXTROSE 5%-WATER - 50 ML IVPB ONE (09:34)
[2018-06-02] MEDS ORDERED: cefTRIAXone SODIUM 1 GM VIAL ONE (09:34)
--- NOTE | 2018-06-02 09:52 | PN ---
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 WBC in urine but asymptomatic. Await C/S. COPD with cough
[2018-06-02] MEDS ORDERED: CEFTRIAXONE 1 GM in DEXTROSE 5%-WATER - 50 ML IVPB SCH (10:00)
[2018-06-02] MEDS: ASPIRIN COATED 81 MG TABLET.EC PO SCH (10:11)
[2018-06-02] MEDS: CLOPIDOGREL BISULFATE 75 MG TABLET (FP) PO SCH (10:11)
--- NOTE | 2018-06-02 12:19 | PN ---
Progress Note (short form) - Note Progress Note: PULMONARY CONSULTATION DICTATED 06/02/18 IMP COPD EXACERBATION LIKELY URI CHRONIC HYPOXEMIC RESPIRATORY FAILURE WEAKNESS ASHD S/P STENT HTN UTI PLAN MEDROL O2 ABX INHALED BRONCHODILATORS SPUTUM C+S ECHO DR HEATH Problem List - Problems (1) Anxiety Code(s): F41.9 - ANXIETY DISORDER, UNSPECIFIED (2) CAD (coronary artery disease) Code(s): I25.10 - ATHSCL HEART DISEASE OF [place] CORONARY ARTERY W/O ANG PCTRS Qualifiers: [place] vs. transplanted heart: [place] heart (3) COPD (chronic obstructive pulmonary disease) Code(s): J44.9 - CHRONIC OBSTRUCTIVE PULMONARY DISEASE, UNSPECIFIED Qualifiers: COPD type: COPD with acute exacerbation Qualified Code(s): J44.1 - Chronic obstructive pulmonary disease with (acute) exacerbation (4) COPD exacerbation Code(s): J44.1 - CHRONIC OBSTRUCTIVE PULMONARY DISEASE W (ACUTE) EXACERBATION (5) Cough Code(s): R05 - COUGH (6) Nasal congestion Code(s): R09.81 - NASAL CONGESTION (7) Shortness of breath Code(s): R06.02 - SHORTNESS OF BREATH (8) UTI (urinary tract infection) Code(s): N39.0 - URINARY TRACT INFECTION, SITE NOT SPECIFIED Qualifiers: Urinary tract infection type: site unspecified Hematuria presence: without hematuria Qualified Code(s): N39.0 - Urinary tract infection, site not specified
[2018-06-02] MEDS ORDERED: PATIENT'S OWN MEDICATION (NON-FORMULARY) (Tiotropium Bromide [Spiriva] 1 PUFF) IH SCH (13:00)
[2018-06-02] MEDS ORDERED: BUDESONIDE/FORMETEROL FUMARATE 80/4.5 mcg INHALER IH SCH (13:00)
--- NOTE | 2018-06-02 13:26 | CONS ---
DATE OF CONSULTATION: 06/02/2018 REFERRING PHYSICIAN: Nile Dahl MD HISTORY: The patient is an 87-year-old white male known to me from previous hospitalizations as well as office follow up with past medical history of COPD on home O2, hypertension, ASHD status post stent, hyperlipidemia admitted to [facility] with complaint of generalized malaise x1 weeks associated with shaking chills and weakness. The patient on Saturday started having a cough productive of yellowish sputum with sinus congestion. He called me, and I prescribed Levaquin. Initially, he felt better, but on the day prior to admission he started feeling more short of breath as well as generalized weakness. Denied any chest pain, nausea, vomiting, diaphoresis. Denied any fevers or hemoptysis. He presented to the emergency room with the above. In the ER, he was placed on inhaled bronchodilators and antibiotic therapy and steroids with good clinical response. The patient has a history of tobacco use. He quit years ago. There is no history of occupational exposure to chemicals or fumes. There is no history of recent travel. There is no history of respiratory failure in the past requiring ventilatory support. PAST MEDICAL HISTORY: Again includes COPD on O2, ASHD status post stents, hypertension, hyperlipidemia. REVIEW OF SYSTEMS: Positive weakness, positive cough, positive chest congestion. Dyspnea with no fever. Positive chills. No nausea, no vomiting, no hemoptysis, no abdominal pain, no lower extremity edema. CURRENT MEDICATIONS: Include Symbicort 80/4.5, Solu-Medrol 40 daily, ceftriaxone, heparin, albuterol, Lipitor, Ecotrin, and Plavix. PHYSICAL EXAMINATION: General: The patient is a well-developed, well-nourished male awake and alert currently in no acute distress. Vital Signs: He is afebrile. Blood pressure 140/71, respirations 20, O2 saturation 96% on 2 L nasal cannula. HEENT: Normocephalic and atraumatic. Neck: Supple. Heart: Regular S1, S2. Chest: A few crackles at the bases. Abdomen: Soft. Bowel sounds are positive. Extremities: No cyanosis or edema. LABORATORIES: WBC 9.1, hemoglobin 14.4, hematocrit 43.7 with a platelet count of 231,000. INR 1.26. Venous blood gas 7.37, PCO2 of 51, PO2 of 36. BUN 24, creatinine 1. Chest x-ray revealed no acute infiltrates and/or effusions. There were coarse changes and scarring in the upper lobes, which is chest. IMPRESSION: 1. Dyspnea, cough, chest congestion likely chronic obstructive pulmonary disease exacerbation. 2. Likely upper respiratory infection. 3. Arteriosclerotic heart disease status post stents. 4. Hypertension. PLAN: Continue IV steroids. Inhaled bronchodilators. Supplemental O2. Sputum for culture and sensitivity. Repeat echocardiogram. RAJESH HEATH M.D. [id number]
[2018-06-02] MEDS: TIOTROPIUM BROMIDE 2.5 MCG (SPIRIVA) RESPIMAT INHALER IH SCH (15:10)
--- NOTE | 2018-06-02 15:20 | EKG ---
Test Reason : Blood Pressure : / mmHG Vent. Rate : 074 BPM Atrial Rate : 074 BPM P-R Int : 000 ms QRS Dur : 088 ms QT Int : 408 ms P-R-T Axes : 000 -32 058 degrees QTc Int : 452 ms SINUS RHYTHM BASELINE ARTIFACT WHEN COMPARED WITH ECG OF 30-MAR-2018 23:12, LIKELY NO SIGNIFICANT CHANGES Confirmed by BRIAN CHOE MD ([id number]) on 06/02/2018 3:19:49 PM Referred By: Confirmed By:BRIAN CHOE MD
--- NOTE | 2018-06-02 16:02 | ECHO ---
Name: SERAFIN MUHAMMAD Exam:Adult Echocardiogram Study Date: 06/02/2018 12:43 PM Age: 87 yrs Reason For Study: RVEF Height: 69 in Weight: 165 lb BSA: 1.9 m2 MMode/2D Measurements & Calculations IVSd: 1.3 cm Ao root diam: 3.4 cm LVIDd: 3.9 cm LA dimension: 2.9 cm LVIDs: 3.0 cm LVPWd: 0.84 cm EDV(Teich): 64.0 ml LVOT diam: 2.0 cm ESV(Teich): 34.3 ml Doppler Measurements & Calculations MV E max tiffanie: 70.8 cm/sec TR max tiffanie: 316.3 cm/sec MV A max tiffanie: 87.8 cm/sec TR max P.0 mmHg MV E/A: 0.81 MV dec time: 0.21 sec Tech Comments . PT. HAS COPD. Procedure A complete two-dimensional transthoracic echocardiogram was performed (2D, M-mode, Doppler and color flow Doppler). Technically limited study due to poor acoustic window. Left Ventricle The left ventricle is normal in size. There is mild concentric left ventricular hypertrophy. Overall preserved LV systolic function. Regional wall motion abnormality could not be accurately assessed due to poor a coustic window. Right Ventricle The right ventricle is not well visualized. Atria The left atrial size is normal. Right atrium not well visualized. Mitral Valve There is mild mitral annular calcification. There is no mitral regurgitation noted. Tricuspid Valve The tricuspid valve is normal in structure and function. No tricuspid regurgitation. Aortic Valve There is mild aortic sclerosis.;. No aortic regurgitation is present. Pulmonic Valve The pulmonic valve is not well visualized. Great Vessels The aortic root is normal size. Pericardium/Pleura There is no pericardial effusion. Interpretation Summary Technically limited study due to poor acoustic window The left ventricle is normal in size. There is mild concentric left ventricular hypertrophy. Overall preserved LV systolic function. Regional wall motion abnormality could not be accurately asse ssed due to poor acoustic window The right ventricle is not well visualized. The left atrial size is normal. Right atrium not well visualized. There is mild mitral annular calcification. There is mild aortic sclerosis.; Valvular regurgitations could not be accurately assessed due to poor acoustic window There is no pericardial effusion. When compared to study dated 06/05/17, likely no significant changes Denys Tamayo MD 06/02/2018 04:02 PM
--- NOTE | 2018-06-02 16:28 | PN ---
Progress Note, Physician Chief Complaint: Pt sitting in bed in no acute distress. Reports feeling well today, breathing feels at baseline. Denies any chest pain, sob, n/v/d - Current Medication List Current Medications: Active Medications Albuterol Sulfate (Ventolin 0.083% Nebulizer Soln -) 1 amp NEB Q4H PRN PRN Reason: SHORT OF BREATH/WHEEZING Aspirin (Ecotrin -) 81 mg PO DAILY [facility] Last Admin: 06/02/18 10:11 Dose: 81 mg Atorvastatin Calcium (Lipitor -) 40 mg PO HS [facility] Budesonide/Formoterol Fumarate (Symbicort 80/4.5mcg -) 2 puff IH BID [facility] Last Admin: 06/02/18 10:12 Dose: 2 puff Clopidogrel Bisulfate (Plavix -) 75 mg PO DAILY [facility] Last Admin: 06/02/18 10:11 Dose: 75 mg Heparin Sodium (Porcine) (Heparin -) 5,000 unit SQ TID [facility] Last Admin: 06/02/18 15:09 Dose: 5,000 unit Ceftriaxone Sodium 1 gm/ (Dextrose) 50 mls @ 100 mls/hr IVPB DAILY [facility]; Protocol Last Admin: 06/02/18 10:12 Dose: 100 mls/hr Methylprednisolone Sodium Succinate (Solu-Medrol -) 40 mg IVPUSH DAILY [facility] Last Admin: 06/02/18 10:11 Dose: 40 mg Tiotropium [place] (Spiriva Respimat) 2 puff IH DAILY [facility] Last Admin: 06/02/18 15:10 Dose: 2 puff - Objective Vital Signs: Vital Signs Temperature 97.2 F L 06/02/18 15:14 Pulse Rate 80 06/02/18 15:14 Respiratory Rate 20 06/02/18 15:14 Blood Pressure 112/55 L 06/02/18 15:14 O2 Sat by Pulse Oximetry (%) 96 06/02/18 07:05 Constitutional: Yes: Well Nourished, No Distress, Calm Cardiovascular: Yes: WNL, Regular Rate and Rhythm Respiratory: Yes: Regular, Diminished, On Nasal O2. No: Accessory Muscle Use, SOB, Tachypnea, Wheezes Gastrointestinal: Yes: WNL, Normal Bowel Sounds, Soft. No: Distention, Tenderness Genitourinary: Yes: WNL Musculoskeletal: Yes: WNL Extremities: Yes: WNL Edema: No Neurological: Yes: WNL, Alert, Oriented Psychiatric: Yes: WNL, Alert, Oriented Labs: CBC, BMP 06/02/18 06:25 06/02/18 06:25 INR, PTT INR 1.26 (0.83-1.09) H 06/01/18 19:45 Problem List - Problems (1) UTI (urinary tract infection) Assessment/Plan: UA+, UC pending +chills/weakness at home- improved, resp vs gu? empiric ceftriaxone day 2 await culture Code(s): N39.0 - URINARY TRACT INFECTION, SITE NOT SPECIFIED Qualifiers: Urinary tract infection type: acute cystitis Hematuria presence: with hematuria Qualified Code(s): N30.01 - Acute cystitis with hematuria (2) COPD exacerbation Assessment/Plan: lung exam- very diminished suspect triggered by recent URI medrol, nebs, O2 sputum culture ordered pulm following Code(s): J44.1 - CHRONIC OBSTRUCTIVE PULMONARY DISEASE W (ACUTE) EXACERBATION (3) SOB (shortness of breath) Assessment/Plan: improved suspect 2/2 uri/ copd exacerbation chest xray- no acute findings echo pending as above Code(s): R06.02 - SHORTNESS OF BREATH (4) Hyperlipidemia Assessment/Plan: stable continue statin Code(s): E78.5 - HYPERLIPIDEMIA, UNSPECIFIED (5) Hypertension Assessment/Plan: controlled continue home regimen Code(s): I10 - ESSENTIAL (PRIMARY) HYPERTENSION Qualifiers: Hypertension type: essential hypertension Qualified Code(s): I10 - Essential (primary) hypertension (6) CAD (coronary artery disease) Assessment/Plan: s/p pci continue asa/plavix/statin echo pending outpt cardiology f/u Code(s): I25.10 - ATHSCL HEART DISEASE OF [place] CORONARY ARTERY W/O ANG PCTRS Qualifiers: [place] vs. transplanted heart: [place] heart
[2018-06-02] MEDS ORDERED: ATORVASTATIN CA 40 MG TABLET (FP) PO SCH (22:00)
[2018-06-03] MEDS: BUDESONIDE/FORMETEROL FUMARATE 80/4.5 mcg INHALER IH SCH ×2 (00:11→10:19)
[2018-06-03] MEDS: HEPARIN NA (PORCINE) 5,000 UNITS/ML 1ML VIAL SQ SCH (06:07)
[2018-06-03 06:30] LABS: ANION GAP 6 MMOL/L (8-16); BLOOD UREA NITROGEN 31 mg/dL (7-18); CALCIUM 8.6 mg/dL (8.5-10.1); CHLORIDE 105 mmol/L (98-107); CO2 31 mmol/L (21-32); GLUCOSE,RANDOM 103 mg/dL (74-106); POTASSIUM 3.7 mmol/L (3.5-5.1); SODIUM 142 mmol/L (136-145)
[2018-06-03 06:36] LABS: BASO % 0.5 % (0-2.0); EOS % 0.2 % (0-4.5); HEMATOCRIT 38.9 % (35.4-49); HEMOGLOBIN 12.7 GM/dL (11.7-16.9); LYMPH % 11.4 % (8-40); MCH 29.4 pg (25.7-33.7); MCHC 32.6 g/dl (32.0-35.9); MEAN CELL VOLUME 90.1 fl (80-96); MEAN PLT VOLUME 7.9 fl (7.5-11.1); MONO % 7.8 % (3.8-10.2); NEUT % 80.1 % (42.8-82.8); PLATELET COUNT 229 K/MM3 (134-434); RBC 4.32 M/mm3 (4.00-5.60); RDW 13.4 % (11.9-15.9); WHITE BLOOD COUNT 12.2 K/mm3 (4.0-10.0)
[2018-06-03] MEDS ORDERED: PT OWN MED DRAWER 7, Y5N ONE (10:14)
[2018-06-03] MEDS: TIOTROPIUM BROMIDE 2.5 MCG (SPIRIVA) RESPIMAT INHALER IH SCH (10:19)
[2018-06-03] MEDS: ASPIRIN COATED 81 MG TABLET.EC PO SCH (10:20)
[2018-06-03] MEDS: CLOPIDOGREL BISULFATE 75 MG TABLET (FP) PO SCH (10:20)
[2018-06-03] MEDS: methylPREDNISolone NA SUCC 40 MG/1 ML VIAL IVPUSH SCH (10:21)
--- NOTE | 2018-06-03 10:53 | PN ---
Progress Note (short form) - Note Progress Note: Breathing feels at baseline. Less SOB overall. No CP. Has Home O2. Intake & Output 05/31/18 06/01/18 06/02/18 06/03/18 23:59 23:59 23:59 23:59 Intake Total 1050 Output Total 200 Balance 850 Weight 165 lb 164 lb 5 oz Last Vital Signs Temp Pulse Resp BP Pulse Ox 98.0 F 64 20 147/71 96 06/03/18 07:00 06/03/18 07:00 06/03/18 07:00 06/03/18 07:00 06/03/18 06:39 Active Medications Albuterol Sulfate (Ventolin 0.083% Nebulizer Soln -) 1 amp NEB Q4H PRN PRN Reason: SHORT OF BREATH/WHEEZING Aspirin (Ecotrin -) 81 mg PO DAILY [facility] Last Admin: 06/03/18 10:20 Dose: 81 mg Atorvastatin Calcium (Lipitor -) 40 mg PO HS [facility] Last Admin: 06/02/18 21:48 Dose: 40 mg Budesonide/Formoterol Fumarate (Symbicort 80/4.5mcg -) 2 puff IH BID [facility] Last Admin: 06/03/18 10:19 Dose: 2 puff Clopidogrel Bisulfate (Plavix -) 75 mg PO DAILY [facility] Last Admin: 06/03/18 10:20 Dose: 75 mg Heparin Sodium (Porcine) (Heparin -) 5,000 unit SQ TID [facility] Last Admin: 06/03/18 06:07 Dose: 5,000 unit Methylprednisolone Sodium Succinate (Solu-Medrol -) 40 mg IVPUSH DAILY [facility] Last Admin: 06/03/18 10:21 Dose: 40 mg Tiotropium [place] (Spiriva Respimat) 2 puff IH DAILY [facility] Last Admin: 06/03/18 10:19 Dose: 2 puff Constitutional: Yes: Well Nourished, No Distress, Calm Cardiovascular: Yes: WNL, Regular Rate and Rhythm Respiratory: Yes: No wheeze, diminished throughout. No: Accessory Muscle Use, SOB, Tachypnea, Wheezes Gastrointestinal: Yes: WNL, Normal Bowel Sounds, Soft. No: Distention, Tenderness Genitourinary: Yes: WNL Musculoskeletal: Yes: WNL Extremities: Yes: WNL Edema: No Neurological: Yes: WNL, Alert, Oriented Psychiatric: Yes: WNL, Alert, Oriented Labs: Laboratory Results - last 24 hr 06/03/18 06/03/18 05:35 05:35 WBC 12.2 H RBC 4.32 Hgb 12.7 Hct 38.9 MCV 90.1 MCH 29.4 MCHC 32.6 RDW 13.4 Plt Count 229 MPV 7.9 Absolute Neuts (auto) 9.7 H Neutrophils % 80.1 Lymphocytes % 11.4 Monocytes % 7.8 D Eosinophils % 0.2 Basophils % 0.5 Nucleated RBC % 0 Sodium 142 Potassium 3.7 Chloride 105 Carbon Dioxide 31 Anion Gap 6 L BUN 31 H Creatinine 1.0 Creat Clearance w eGFR > 60 Random Glucose 103 Calcium 8.6 Problem List - Problems (1) Anxiety Code(s): F41.9 - ANXIETY DISORDER, UNSPECIFIED (2) CAD (coronary artery disease) Code(s): I25.10 - ATHSCL HEART DISEASE OF [place] CORONARY ARTERY W/O ANG PCTRS Qualifiers: [place] vs. transplanted heart: [place] heart (3) COPD (chronic obstructive pulmonary disease) Code(s): J44.9 - CHRONIC OBSTRUCTIVE PULMONARY DISEASE, UNSPECIFIED Qualifiers: COPD type: COPD with acute exacerbation Qualified Code(s): J44.1 - Chronic obstructive pulmonary disease with (acute) exacerbation (4) COPD exacerbation Code(s): J44.1 - CHRONIC OBSTRUCTIVE PULMONARY DISEASE W (ACUTE) EXACERBATION (5) Cough Code(s): R05 - COUGH (6) Nasal congestion Code(s): R09.81 - NASAL CONGESTION (7) Shortness of breath Code(s): R06.02 - SHORTNESS OF BREATH (8) UTI (urinary tract infection) Code(s): N39.0 - URINARY TRACT INFECTION, SITE NOT SPECIFIED Qualifiers: Urinary tract infection type: site unspecified Hematuria presence: without hematuria Qualified Code(s): N39.0 - Urinary tract infection, site not specified IMP COPD EXACERBATION LIKELY URI CHRONIC HYPOXEMIC RESPIRATORY FAILURE WEAKNESS ASHD S/P STENT HTN UTI PLAN CAN CHANGE TO PREDNISONE: START AT 40MG OD AND TAPER BY 10 MG EVERY 3 DAYS PATIENT HAS HOME O2 INHALED BRONCHODILATORS NO PULMONARY CONTRAINDICATION FOR D/C DR RUDOLPH
[2018-06-03 12:03] VITALS: BP 110/64; PULSE 72; TEMP 97.5
--- NOTE | 2018-06-03 12:56 | DS ---
Physical Examination Vital Signs: Vital Signs Temperature 97.5 F L 06/03/18 10:00 Pulse Rate 72 06/03/18 10:00 Respiratory Rate 18 06/03/18 10:00 Blood Pressure 110/64 06/03/18 10:00 O2 Sat by Pulse Oximetry (%) 95 06/03/18 12:00 Constitutional: Yes: Well Nourished, No Distress, Calm Cardiovascular: Yes: Regular Rate and Rhythm Respiratory: Yes: Regular, Cough, Diminished, On Nasal O2. No: SOB, Tachypnea Gastrointestinal: Yes: WNL, Normal Bowel Sounds, Soft. No: Distention, Tenderness Renal/: Yes: WNL Musculoskeletal: Yes: WNL Extremities: Yes: WNL Edema: No Neurological: Yes: WNL, Alert, Oriented Psychiatric: Yes: WNL, Alert, Oriented Labs: CBC, BMP 06/03/18 05:35 06/03/18 05:35 Discharge Summary Reason For Visit: COMPLICATED URINARY TRACT INFECTION Hospital Course: 87 year old male admitted for evaluation of sob, cough/productive sputum. All infectious work up neg. UA positive, pt received empiric ceftriaxone, UC did not grow any organism. Based on lung exam, suspect acute copd exacerbation possibly triggered by recent uri. sputum culture neg. chest xray without acute findings. pt received medrol while here with improvement in sob, pt evaluated by pulm, transitioned to po prednisone. Otherwise, pt in no acute distress, vitals stable, afebrile, sob improved to baseline, labs unremarkable. Pt is medically stable for discharge home. follow up as directed. 32 minutes spent in discharge planning Condition: Good - Instructions Referrals: Neeraj Smallwood MD [Staff Physician] - 2 Weeks Nile Dahl MD [Staff Physician] - 1 Week Disposition: HOME - Home Medications Comprehensive Discharge Medication List: Ambulatory Orders Aspirin Coated [Ecotrin -] 81 mg PO DAILY tablet.ec 09/04/17 Atorvastatin Ca [Lipitor] 40 mg PO HS tablet 09/04/17 Budesonide/Formeterol Fumarate [SYMBICORT 80/4.5mcg -] 2 puff IH BID inhaler Clopidogrel Bisulfate [Plavix -] 75 mg PO DAILY tablet 09/04/17 Escitalopram Oxalate [Lexapro -] 10 mg PO DAILY tablet 09/04/17 Ipratropium/Albuterol Sulfate [Combivent Respimat 20-100 Mcg] 4 gm IH QID #1 aer.w.adap 09/04/17 Tiotropium [place] [Spiriva] 1 puff IH DAILY inh 09/04/17 Ranitidine [Zantac -] 150 mg PO DAILY 06/01/18 predniSONE [Deltasone -] See Taper PO DAILY #30 tablet 06/03/18
== END 2018-06-03 12:49 | disposition home or self-care (01) ==
LOC: JER 18:48 → JERBED 22:27 → UNDOADMOB 22:48 → JERBED 22:48 → J5S 06-02 00:03
PROVIDERS: ADMIT Internal Medicine; ATTEND Internal Medicine
PROC: 3E0F7GC Introduction of Other Therapeutic Substance into Respiratory Tract, Via Natural or Artificial Opening (ICD-10-PCS; principal; 2018-06-01)
PROC: 3E0F7GC Introduction of Other Therapeutic Substance into Respiratory Tract, Via Natural or Artificial Opening (ICD-10-PCS; 2018-06-01)
PROC: 3E0F7GC Introduction of Other Therapeutic Substance into Respiratory Tract, Via Natural or Artificial Opening (ICD-10-PCS; 2018-06-01)
PROC: 3E0F7GC Introduction of Other Therapeutic Substance into Respiratory Tract, Via Natural or Artificial Opening (ICD-10-PCS; 2018-06-01)
PROC: 3E03329 Introduction of Other Anti-infective into Peripheral Vein, Percutaneous Approach (ICD-10-PCS; 2018-06-01)
PROC: 3E03329 Introduction of Other Anti-infective into Peripheral Vein, Percutaneous Approach (ICD-10-PCS; 2018-06-01)
PROC: 3E0333Z Introduction of Anti-inflammatory into Peripheral Vein, Percutaneous Approach (ICD-10-PCS; 2018-06-01)
PROC: 3E013GC Introduction of Other Therapeutic Substance into Subcutaneous Tissue, Percutaneous Approach (ICD-10-PCS; 2018-06-01)
DX: N30.01 Acute cystitis with hematuria (principal); J44.1 Chronic obstructive pulmonary disease with (acute) exacerbation; I25.10 Atherosclerotic heart disease of native coronary artery without angina pectoris; I10 Essential (primary) hypertension; Z95.5 Presence of coronary angioplasty implant and graft; I25.2 Old myocardial infarction; E78.5 Hyperlipidemia, unspecified; E78.00 Pure hypercholesterolemia, unspecified; F41.9 Anxiety disorder, unspecified; Z79.01 Long term (current) use of anticoagulants; Z79.82 Long term (current) use of aspirin; Z87.891 Personal history of nicotine dependence
CPT/HCPCS: 36415; 71045-TC-FY; 80048; 80053; 81003; 81015; 82803; 83735; 84100; 84484; 85025; 85610; 85730; 87040; 87070; 87086; 87205; 87804; 93005; 93010; 93306-TC; 94640; 96365; 96372; 96375; 97116-GP; 97161-GP; 99284-25; G0378; J1644; J7030

== ENCOUNTER 2018-09-28 15:36 | Emergency (ER) | payer OTHER, BC ==
[2018-09-28 15:52] VITALS: BP 105/52; PULSE 77; TEMP 99.2; BMI 24.0
[2018-09-28 17:29] LABS: BASO % 0.4 % (0-2.0); EOS % 0.5 % (0-4.5); HEMATOCRIT 43.8 % (35.4-49); HEMOGLOBIN 14.4 GM/dL (11.7-16.9); LYMPH % 12.1 % (8-40); MCH 29.8 pg (25.7-33.7); MCHC 32.9 g/dl (32.0-35.9); MEAN CELL VOLUME 90.7 fl (80-96); MEAN PLT VOLUME 8.1 fl (7.5-11.1); MONO % 6.1 % (3.8-10.2); NEUT % 80.9 % (42.8-82.8); PLATELET COUNT 209 K/MM3 (134-434); RBC 4.83 M/mm3 (4.00-5.60); RDW 14.8 % (11.9-15.9); WHITE BLOOD COUNT 11.6 K/mm3 (4.0-10.0)
--- NOTE | 2018-09-28 17:32 | PDOC ---
History of Present Illness - General Chief Complaint: Chest Pain Stated Complaint: CHEST PAIN / SOB Time Seen by Provider: 09/28/18 16:21 - History of Present Illness Initial Comments: 09/28/18 17:32 Pt is an 87yo M with PMH of CAD s/p stent 2017, COPD, HTN, HLD (on 2L at home), BIBA for leg swelling following wound to the right leg. Has been on Clindamycin for 3 days. Woke up this morning with swollen feet and discolored blue toes but back to normal now. Admitted to some chest discomfort earlier today along the midline/sternum, , consistent with his GERD/indigestion, now resolved. PMD: [place] Pulm: [place] Cards: [place] PMH: see hpi PSH: stent Meds: see med rec Allergies: nkda Past History - Past Medical History Allergies/Adverse Reactions: Allergies Allergy/AdvReac Type Severity Reaction Status Date / Time No Known Drug Allergies Allergy Verified 09/28/18 15:47 shrimp Allergy Unknown lip Uncoded 09/28/18 15:47 swelling Home Medications: Ambulatory Orders Aspirin Coated [Ecotrin -] 81 mg PO DAILY tablet.ec 09/04/17 Atorvastatin Ca [Lipitor] 40 mg PO HS tablet 09/04/17 Budesonide/Formeterol Fumarate [SYMBICORT 80/4.5mcg -] 2 puff IH BID inhaler Clopidogrel Bisulfate [Plavix -] 75 mg PO DAILY tablet 09/04/17 Escitalopram Oxalate [Lexapro -] 10 mg PO DAILY tablet 09/04/17 Ipratropium/Albuterol Sulfate [Combivent Respimat 20-100 Mcg] 4 gm IH QID #1 aer.w.adap 09/04/17 Tiotropium [place] [Spiriva] 1 puff IH DAILY inh 09/04/17 Ranitidine [Zantac -] 150 mg PO DAILY 06/01/18 predniSONE [Deltasone -] See Taper PO DAILY #30 tablet 06/03/18 Anemia: No Asthma: No Cancer: No Cardiac Disorders: Yes (Chest Pain, MS with stents) CVA: No COPD: Yes CHF: No DVT: No Dementia: No Diabetes: No Dialysis: No GI Disorders: No Disorders: No HTN: Yes Hypercholesterolemia: Yes Kidney Stones: No Liver Disease: No Psychiatric Problems: No Seizures: No Thyroid Disease: No Lung CA: No - Surgical History Abdominal Surgery: No Appendectomy: No Cardiac Surgery: Yes (Cardiac Cath 2015, stents 2017) Cholecystectomy: No Gastric Stapling: No GI Surgery: No Lung Surgery: No Neurologic Surgery: No Orthopedic Surgery: No - Immunization History Td Vaccination: Yes TDAP Vaccination: Yes Immunization Up to Date: Yes - Suicide/Smoking/Psychosocial Hx Smoking Status: Yes Smoking History: Former smoker Have you smoked in the past 12 months: No Number of Cigarettes Smoked Daily: 0 If you are a former smoker, when did you quit?: 40 years ago Cigars Per Day: 0 Information on smoking cessation initiated: No Hx Alcohol Use: No Drug/Substance Use Hx: No Substance Use Type: None Hx Substance Use Treatment: No Review of Systems - Review of Systems Able to Perform ROS?: Yes Is the patient limited Citizen [place] proficient: No Constitutional: No: Symptoms Reported HEENTM: No: Symptoms Reported Respiratory: No: Symptoms reported Cardiac (ROS): Yes: See HPI ABD/GI: No: Symptoms Reported : No: Symptoms Reported Musculoskeletal: No: Symptoms Reported Integumentary: No: Symptoms Reported Neurological: No: Symptoms reported All Other Systems: Reviewed and Negative *Physical Exam - Vital Signs Last Vital Signs Temp Pulse Resp BP Pulse Ox 99.2 F 77 18 105/52 L 92 L 09/28/18 15:49 09/28/18 15:49 09/28/18 15:49 09/28/18 15:49 09/28/18 15:49 - Physical Exam General Appearance: Yes: Nourished, Appropriately Dressed. No: Apparent Distress HEENT: positive: EOMI, JIHAN, Normal ENT Inspection Respiratory/Chest: positive: Lungs Clear, Normal Breath Sounds. negative: Chest Tender, Respiratory Distress Cardiovascular: positive: Regular Rhythm, Regular Rate, S1, S2 Gastrointestinal/Abdominal: positive: Normal Bowel Sounds, Soft. negative: Tender Extremity: positive: Other (over over right leg healing and closed. Some mild pedal edema 2+ bilaterally ) Neurologic: positive: Fully Oriented, Alert, Normal Mood/Affect, Normal Response , Motor Strength 5/5, Other (anxious) ED Treatment Course - LABORATORY CBC & Chemistry Diagram: 09/28/18 17:00 09/28/18 17:00 Medical Decision Making - Medical Decision Making 09/28/18 18:10 Likely swelling from venous insufficiency. Wound is healing properly. Will send lab to rule out infection and probably do 2 set of trop for the chest pain. 09/28/18 18:52 First troponin negative at 5pm. EKG @15:33: Sinus thythm with fusion complexes, otherwise normal. Rate: 78 EKG @1707: Sinus rhythm with PACs, left axis deviation. Septal infarct age undertermined. rate: 64. *DC/Admit/Observation/Transfer Diagnosis at time of Disposition: Leg wound, right - Discharge Dispostion Disposition: HOME Decision to Admit order: No - Referrals Referrals: Nile Dahl MD [Primary Care Provider] - - Patient Instructions Printed Discharge Instructions: Venous Insufficiency (Alternative Therapy) Additional Instructions: Follow up with Dr. Dahl within the next 2-3 days. Continue your antibiotics. Come back to the emergency department for any new, worsening or concerning symptom. - Post Discharge Activity
[2018-09-28 17:42] LABS: INR 1.1 (0.83-1.09)
[2018-09-28 17:45] LABS: ACTIVATED PTT 30.5 SECONDS (25.2-36.5)
[2018-09-28 18:07] LABS: ALBUMIN 3.9 g/dl (3.4-5.0); ALK PHOS 58 U/L (45-117); ANION GAP 8 MMOL/L (8-16); BILIRUBIN,TOTAL 0.5 mg/dL (0.2-1); BLOOD UREA NITROGEN 24 mg/dL (7-18); CALCIUM 9.1 mg/dL (8.5-10.1); CHLORIDE 105 mmol/L (98-107); CO2 30 mmol/L (21-32); CREATININE 1.2 mg/dL (0.55-1.3); GLUCOSE,RANDOM 96 mg/dL (74-106); SGOT/AST 30 U/L (15-37); SGPT/ALT 24 U/L (13-61); SODIUM 142 mmol/L (136-145); TOT PROT 6.6 g/dl (6.4-8.2)
--- NOTE | 2018-09-28 18:46 | PDOC ---
Attending Attestation - HPI HPI: 09/28/18 19:12 The patient is a 87 year old male, with a significant past medical history of CAD s/p stent 2017, COPD, HTN, HLD, who presents to the emergency department with, right foot swelling and erythema. Patient was recently on PO antibiotics and notes his feet began swelling with associated erythema once again. Patient endorses transient chest discomfort similar to his GERD. He denies any recent fevers, chills, headache or dizziness. He denies any recent nausea, vomit, diarrhea or constipation. He denies any recent dysuria, frequency, urgency or hematuria. Allergies: Shrimp Primary Care Physician: Dr. Dahl Asset Coordinator: Dr. Smallwood Crude Oil Treater: Dr. Orr - Physicial Exam PE: 09/28/18 19:58 GENERAL: Well-appearing, well-nourished. No apparent distress. HEENT: Normocephalic, atraumatic. PERRL, EOM intact. CARDIOVASCULAR: Normal S1, S2. Regular rate and rhythm. PULMONARY: Clear to auscultation bilaterally. ABDOMEN: Soft, non-distended, non-tender. EXTREMITIES: Normal ROM in all four extremities. SKIN: +Right foot: Erythema and swelling to the right foot. Mild erythema and swelling to the ankle. NEUROLOGICAL: No focal neurological deficits. <Marck Agarwal - Last Filed: 09/28/18 19:58> - Resident Resident Name: Meek Ponce - ED Attending Attestation I have performed the following: I have examined & evaluated the patient, The case was reviewed & discussed with the resident, I agree w/resident's findings & plan, Exceptions are as noted - Medical Decision Making 09/28/18 20:16 87 yo male has been on po antibiotics for a rt anterior leg wound and came for several reasons. His rt foot had increased swelling compared to left foot and there was some increased erythema. He has a fleeting episode of chest pain but he stated he has frequent GERD and the discomfort resolved. We are doing 2 troponins and if they are negative he will be discharged with instructions to finish his antibiotics and see Dr Dahl this week 09/28/18 20:50 <Lila Dowd - Last Filed: 09/28/18 20:54> Attestations - Attestations 09/28/18 19:13 Documentation prepared by Marck Agarwal, acting as medical supervisor for Lila Dowd MD. <Marck Agarwal - Last Filed: 09/28/18 19:58>
[2018-09-28 19:14] LABS: URINE APPEARANCE CLEAR; URINE BILIRUBIN NEGATIVE (NEGATIVE); URINE COLOR YELLOW; URINE GLUCOSE (UA) NEGATIVE (NEGATIVE); URINE KETONE TRACE (NEGATIVE)
[2018-09-28 19:15] LABS: URINE LEUK ESTERASE 4+ (NEGATIVE); URINE NITRITE NEGATIVE (NEGATIVE); URINE PROTEIN NEGATIVE (NEGATIVE); URINE UROBILINOGEN 0.2 mg/dL (0.2-1.0)
--- NOTE | 2018-09-29 15:33 | EKG ---
Test Reason : Blood Pressure : / mmHG Vent. Rate : 064 BPM Atrial Rate : 064 BPM P-R Int : 168 ms QRS Dur : 096 ms QT Int : 446 ms P-R-T Axes : 025 -45 062 degrees QTc Int : 460 ms SINUS RHYTHM WITH PREMATURE ATRIAL COMPLEXES LEFT AXIS DEVIATION SEPTAL INFARCT , AGE UNDETERMINED ABNORMAL ECG WHEN COMPARED WITH ECG OF 01-JUN-2018 19:07, NO SIGNIFICANT CHANGE WAS FOUND Confirmed by ДМИТРИЙ OATES, BRIAN ([id number]) on 09/29/2018 3:33:21 PM Referred By: Confirmed By:BRIAN CHOE MD
== END 2018-09-28 21:28 | disposition home or self-care (01) ==
LOC: SUPCPDRO 15:36 → JER 15:36
DX: S81.801A Unspecified open wound, right lower leg, initial encounter (principal); I87.2 Venous insufficiency (chronic) (peripheral); I25.10 Atherosclerotic heart disease of native coronary artery without angina pectoris; I10 Essential (primary) hypertension; Z95.5 Presence of coronary angioplasty implant and graft; I25.2 Old myocardial infarction; J44.9 Chronic obstructive pulmonary disease, unspecified; E78.5 Hyperlipidemia, unspecified; Z99.81 Dependence on supplemental oxygen; X58.XXXA Exposure to other specified factors, initial encounter; Y93.9 Activity, unspecified; Y92.038 Other place in apartment as the place of occurrence of the external cause; Y99.8 Other external cause status
CPT/HCPCS: 36415; 71045-TC-FY; 80053; 81003; 82553; 83605; 84484; 85025; 85610; 85730; 87040; 87086; 93005; 93010; 99285-25

== ENCOUNTER 2018-10-10 19:18 | Emergency (ER) | payer OTHER, BC ==
--- NOTE | 2018-10-10 19:42 | PDOC ---
Rapid Medical Evaluation Time Seen by Provider: 10/10/18 19:41 Medical Evaluation: Allergies Allergy/AdvReac Type Severity Reaction Status Date / Time No Known Drug Allergies Allergy Verified 09/28/18 15:47 shrimp Allergy Unknown lip Uncoded 09/28/18 15:47 swelling 10/10/18 19:41 I performed a brief in-person evaluation of this patient. Chief complaint: "Lump" in left leg, sent by Dr. Dahl for u/s Pertinent physical exam findings: 1+ pitting edema, tender bulge lateral aspect of left lower extremity. No calf tenderness. I have ordered the following: Basic labs, LE u/s Patient will proceed to the ED for further evaluation. Discharge Disposition - Diagnosis Left leg swelling - Referrals - Patient Instructions - Post Discharge Activity
[2018-10-10 19:43] VITALS: TEMP 98.7; BMI 23.6
--- NOTE | 2018-10-10 20:21 | PDOC ---
History of Present Illness - General Chief Complaint: Edema Stated Complaint: PATIENT Time Seen by Provider: 10/10/18 19:41 - History of Present Illness Initial Comments: 10/10/18 20:03 87 yo M with h/o HTN, HLD, CAD s/p stent placement who p/w BL leg swelling. Patient with 1 month of right leg swelling below the knee, and left foot swelling. No identifiable triggers or alleviators. Reports that today his left calf appeared swollen. Patient referred by PMD Dr. Dahl. Denies trauma, recent surgeyr, prolonged immobilization ,cancer hx., hormone supplementation. Denies leg pain. Patient denies TILLMAN, vision change, palpitations, cough, wheezing, orthopena, PND , N/V, F,C, CP, SOB, urinary complaints, hematuria, BPR, abdominal pain, diarrhea, constipation, lightheadedness, weakness, sensory changes. PMHx: as noted above ROS: as noted SHx: Distant smoking history Allergies: NKDA Past History - Past Medical History Allergies/Adverse Reactions: Allergies Allergy/AdvReac Type Severity Reaction Status Date / Time No Known Drug Allergies Allergy Verified 09/28/18 15:47 shrimp Allergy Unknown lip Uncoded 09/28/18 15:47 swelling Home Medications: Ambulatory Orders Aspirin Coated [Ecotrin -] 81 mg PO DAILY tablet.ec 09/04/17 Atorvastatin Ca [Lipitor] 40 mg PO HS tablet 09/04/17 Budesonide/Formeterol Fumarate [SYMBICORT 80/4.5mcg -] 2 puff IH BID inhaler Clopidogrel Bisulfate [Plavix -] 75 mg PO DAILY tablet 09/04/17 Escitalopram Oxalate [Lexapro -] 10 mg PO DAILY tablet 09/04/17 Ipratropium/Albuterol Sulfate [Combivent Respimat 20-100 Mcg] 4 gm IH QID #1 aer.w.adap 09/04/17 Tiotropium [place] [Spiriva] 1 puff IH DAILY inh 09/04/17 Ranitidine [Zantac -] 150 mg PO DAILY 06/01/18 predniSONE [Deltasone -] See Taper PO DAILY #30 tablet 06/03/18 Terbinafine HCl [Terbinafine] 1 applic TP AC #30 cream..g. 10/10/18 Anemia: No Asthma: No Cancer: No Cardiac Disorders: Yes (Chest Pain, [place] with stents) CVA: No COPD: Yes CHF: No DVT: No Dementia: No Diabetes: No Dialysis: No GI Disorders: No Disorders: No HTN: Yes Hypercholesterolemia: Yes Kidney Stones: No Liver Disease: No Psychiatric Problems: No Seizures: No Thyroid Disease: No Lung CA: No - Surgical History Abdominal Surgery: No Appendectomy: No Cardiac Surgery: Yes (Cardiac Cath 2014, stents 2017) Cholecystectomy: No Gastric Stapling: No GI Surgery: No Lung Surgery: No Neurologic Surgery: No Orthopedic Surgery: No - Immunization History Td Vaccination: Yes TDAP Vaccination: Yes Immunization Up to Date: Yes - Suicide/Smoking/Psychosocial Hx Smoking Status: Yes Smoking History: Unknown if ever smoked Have you smoked in the past 12 months: No Number of Cigarettes Smoked Daily: 0 If you are a former smoker, when did you quit?: 40 years ago Cigars Per Day: 0 Hx Alcohol Use: No Drug/Substance Use Hx: No Substance Use Type: None Hx Substance Use Treatment: No Review of Systems - Review of Systems Comments:: 10/10/18 20:30 GENERAL/CONSTITUTIONAL: No fever or chills. No weakness. HEAD, EYES, EARS, NOSE AND THROAT: No change in vision. No ear pain or discharge. No sore throat. CARDIOVASCULAR: No chest pain or shortness of breath RESPIRATORY: No cough, wheezing, or hemoptysis. GASTROINTESTINAL: No nausea, vomiting, diarrhea or constipation. GENITOURINARY: No dysuria, frequency, or change in urination. MUSCULOSKELETAL: + BL leg swelling. No joint or muscle pain. No neck or back pain. SKIN: No rash NEUROLOGIC: No headache, vertigo, loss of consciousness, or change in strength/ sensation. ENDOCRINE: No increased thirst. No abnormal weight change HEMATOLOGIC/LYMPHATIC: No anemia, easy bleeding, or history of blood clots. ALLERGIC/IMMUNOLOGIC: No hives or skin allergy. *Physical Exam - Vital Signs Last Vital Signs Temp Pulse Resp BP Pulse Ox 98.7 F 79 20 118/70 93 L 10/10/18 19:41 10/10/18 19:41 10/10/18 19:41 10/10/18 19:41 10/10/18 19:41 - Physical Exam Comments: 10/10/18 20:31 GENERAL: Awake, alert, and fully oriented, in no acute distress HEAD: No signs of trauma, normocephalic, atraumatic EYES: PERRLA, EOMI, sclera anicteric, conjunctiva clear ENT: Auricles normal inspection, hearing grossly normal, nares patent, oropharynx clear without exudates. Moist mucosa NECK: Normal ROM, supple, no lymphadenopathy, JVD, or masses LUNGS: No distress, speaks full sentences, clear to auscultation bilaterally HEART: Regular rate and rhythm, normal S1 and S2, no murmurs, rubs or gallops, peripheral pulses normal and equal bilaterally. ABDOMEN: Soft, nontender, normoactive bowel sounds. No guarding, no rebound. No masses EXTREMITIES : BL 2 + Pitting edema, with venous stasis skin discoloration below the knee. Negative palpable cord. Palpable and symmetric 2 + pulses. Nontender ttp. Normal inspection, Normal range of motion, no edema. No clubbing or cyanosis. NEUROLOGICAL: Cranial nerves II through XII grossly intact. Normal speech, normal gait, no focal sensorimotor deficits SKIN: Warm, Dry, normal turgor, no rashes or lesions noted ED Treatment Course - LABORATORY CBC & Chemistry Diagram: 10/10/18 20:20 10/10/18 21:52 Medical Decision Making - Medical Decision Making 10/10/18 20:29 87 yo M with h/o HTN, HLD, CAD s/p stent placement who p/w BL leg swelling. Vitals wnl, AF, A&Ox3. Physical exam with BL 2+ Pitting edema and venous stasis changes BTK. Otherwise unremarkable physical exam. R/o BL DVT. No evidence of arterial occlusion, cellulitis, nec fasc. Clinically without evidence of volume overload. Low suspicion CHF, will assess for renal insufficiency, liver disease. Ed Course: DUPLEX BL LE 10/10/18 22:25 Duplex BL LE: Absent DVT CBC: Unremarkable 10/10/18 22:53 Laboratory Tests 10/10/18 10/10/18 20:20 20:20 WBC 10.5 H Hgb 14.0 Hct 41.7 Plt Count 196 Anion Gap Cancelled Creatinine Cancelled 10/10/18 22:53 CMP: Unremarkable Patient stable for d/c with return precautions Advised to f/u PMD. *DC/Admit/Observation/Transfer Diagnosis at time of Disposition: Left leg swelling - Discharge Dispostion Condition at time of disposition: Stable - Prescriptions Prescriptions: Terbinafine HCl [Terbinafine] 1 applic TP AC #30 cream..g. - Referrals Referrals: Nile Dahl MD [Primary Care Provider] - - Patient Instructions Printed Discharge Instructions: DI for Peripheral Edema -- Bilateral Additional Instructions: Please return to the emergency department with any new or worsening symptoms or concerns. Please follow up with your primary care physician within 72 hours. - Post Discharge Activity
[2018-10-10 20:57] LABS: BASO % 0.3 % (0-2.0); HEMATOCRIT 41.7 % (35.4-49); MCH 30.7 pg (25.7-33.7); MCHC 33.7 g/dl (32.0-35.9); MEAN CELL VOLUME 91.1 fl (80-96); MONO % 6.8 % (3.8-10.2); NEUT % 77.9 % (42.8-82.8); PLATELET COUNT 196 K/MM3 (134-434); RBC 4.57 M/mm3 (4.00-5.60); RDW 14.9 % (11.9-15.9); WHITE BLOOD COUNT 10.5 K/mm3 (4.0-10.0)
[2018-10-10 21:21] LABS: INR 1.11 (0.83-1.09); PROTHROMBIN TIME (PATIENT) 13.1 SEC (9.7-13.0)
[2018-10-10 22:41] LABS: ALBUMIN 3.6 g/dl (3.4-5.0); ALK PHOS 44 U/L (45-117); ANION GAP 7 MMOL/L (8-16); BILIRUBIN,TOTAL 0.6 mg/dL (0.2-1); BLOOD UREA NITROGEN 25 mg/dL (7-18); CHLORIDE 107 mmol/L (98-107); CO2 30 mmol/L (21-32); CREATININE 1.2 mg/dL (0.55-1.3); GLUCOSE,RANDOM 98 mg/dL (74-106); POTASSIUM 3.3 mmol/L (3.5-5.1); SGOT/AST 20 U/L (15-37); SGPT/ALT 20 U/L (13-61); SODIUM 144 mmol/L (136-145); TOT PROT 5.8 g/dl (6.4-8.2)
[2018-10-10] MEDS ORDERED: POTASSIUM CHLORIDE TABS 10 MEQ TABLET.ER (FP) PO ONE (22:41)
[2018-10-10] MEDS ORDERED: MAGNESIUM SULF 50% (8.12 MEQ/2 ML-1 GM VIAL) IVPB ONE (22:41)
[2018-10-10] MEDS ORDERED: POTASSIUM CHLORIDE TABS 20 MEQ TABLET.ER (FP) PO ONE (22:49)
[2018-10-10] MEDS ORDERED: MAGNESIUM 1GM/D5W - 1 GM/100 ML IVPB IVPB ONE (22:50)
[2018-10-10 23:38] VITALS: BP 116/70; PULSE 80
--- NOTE | 2018-10-11 14:11 | EKG ---
Test Reason : Blood Pressure : / mmHG Vent. Rate : 062 BPM Atrial Rate : 062 BPM P-R Int : 164 ms QRS Dur : 104 ms QT Int : 462 ms P-R-T Axes : 041 -34 050 degrees QTc Int : 468 ms SINUS RHYTHM WITH PREMATURE ATRIAL COMPLEXES LEFT AXIS DEVIATION ABNORMAL ECG WHEN COMPARED WITH ECG OF 28-SEP-2018 17:07, NO SIGNIFICANT CHANGE WAS FOUND Confirmed by MD LORENA, BINH ([id number]) on 10/11/2018 2:11:10 PM Referred By: Confirmed By:BINH CARRILLO MD
== END 2018-10-10 23:38 | disposition home or self-care (01) ==
LOC: JER 19:18
PROC: 3E033GC Introduction of Other Therapeutic Substance into Peripheral Vein, Percutaneous Approach (ICD-10-PCS; principal; 2018-10-10)
DX: R60.0 Localized edema (principal); I87.8 Other specified disorders of veins; B35.8 Other dermatophytoses; I25.10 Atherosclerotic heart disease of native coronary artery without angina pectoris; I10 Essential (primary) hypertension; Z95.1 Presence of aortocoronary bypass graft; I25.2 Old myocardial infarction; E78.5 Hyperlipidemia, unspecified; E78.00 Pure hypercholesterolemia, unspecified; J44.9 Chronic obstructive pulmonary disease, unspecified
CPT/HCPCS: 36415; 80053; 83880; 85025; 85610; 93005; 93010; 93970-TC; 96374; 99282-25

== ENCOUNTER 2019-05-14 14:56 | Inpatient (IN) | payer OTHER, BC ==
--- NOTE | 2019-05-14 15:12 | PDOC ---
Rapid Medical Evaluation Time Seen by Provider: 05/14/19 15:10 Medical Evaluation: Allergies Allergy/AdvReac Type Severity Reaction Status Date / Time No Known Drug Allergies Allergy Verified 10/17/18 09:08 shrimp Allergy Unknown lip Uncoded 10/17/18 09:08 swelling 05/14/19 15:11 I have performed a brief in-person evaluation of this patient. The patient presents with a chief complaint of: short of breath, weak Pertinent physical exam findings:stable and in NAD, non-focal I have ordered the following:labs The patient will proceed to the ED for further evaluation.
[2019-05-14 16:10] LABS: BASO % 0.8 % (0-2.0); EOS % 0.8 % (0-4.5); HEMATOCRIT 43.9 % (35.4-49); HEMOGLOBIN 14.6 GM/dL (11.7-16.9); LYMPH % 8.4 % (8-40); MCH 30.3 pg (25.7-33.7); MCHC 33.2 g/dl (32.0-35.9); MEAN CELL VOLUME 91.3 fl (80-96); MEAN PLT VOLUME 7.7 fl (7.5-11.1); MONO % 5.3 % (3.8-10.2); NEUT % 84.7 % (42.8-82.8); PLATELET COUNT 232 K/MM3 (134-434); RBC 4.81 M/mm3 (4.00-5.60); RDW 14.8 % (11.9-15.9); WHITE BLOOD COUNT 9.4 K/mm3 (4.0-10.0)
[2019-05-14 16:14] LABS: EPI CELLS 0.2 /HPF (0-5/HPF); HYALINE CASTS 21 /lpf (0-8); PH,URINE 5.5 (5.0-8.0); URINE APPEARANCE CLOUDY; URINE BACTERIA 8.8 /hpf (NEGATIVE); URINE BILIRUBIN NEGATIVE (NEGATIVE); URINE COLOR YELLOW; URINE GLUCOSE (UA) NEGATIVE (NEGATIVE); URINE KETONE NEGATIVE (NEGATIVE); URINE LEUK ESTERASE 3+ (NEGATIVE); URINE NITRITE NEGATIVE (NEGATIVE); URINE PROTEIN NEGATIVE (NEGATIVE); URINE RBC 3 /hpf (0-4); URINE UROBILINOGEN 0.2 mg/dL (0.2-1.0); URINE WBC 140 /hpf (0-5)
[2019-05-14 16:15] LABS: VENOUS PC02 47.6 mmHg (38-52); VENOUS PH 7.38 (7.31-7.41)
[2019-05-14 16:18] LABS: VENOUS PO2 < 49 mmHg (28-48)
[2019-05-14 16:23] LABS: INR 1.13 (0.83-1.09); PROTHROMBIN TIME (PATIENT) 13.4 SEC (9.7-13.0)
[2019-05-14 16:26] LABS: ACTIVATED PTT 32.6 SECONDS (25.2-36.5)
[2019-05-14 16:39] LABS: ALBUMIN 3.5 g/dl (3.4-5.0); BILIRUBIN,TOTAL 0.7 mg/dL (0.2-1); BLOOD UREA NITROGEN 22.6 mg/dL (7-18); CALCIUM 8.8 mg/dL (8.5-10.1); CREATININE 0.9 mg/dL (0.55-1.3); POTASSIUM 4.2 mmol/L (3.5-5.1); TOT PROT 6.1 g/dl (6.4-8.2)
--- NOTE | 2019-05-14 16:47 | PDOC ---
History of Present Illness - General Chief Complaint: Shortness of Breath Stated Complaint: DIFFICULTY BREATHING Time Seen by Provider: 05/14/19 15:10 History Source: Patient Exam Limitations: No Limitations - History of Present Illness Initial Comments: 87 year old male with PMH CAD s/p stent 2017, COPD on 2L home O2, HTN, HLD presented to ED for shortness of breath x2 days. Pt reported he has had increased sputum / change from clear to yellow x2 days associated with SOB, he was seen by his Certified Ethical Hacker Dr. Smallwood today, was advised to have OP CXR, was going to increase daily prednisone from 5mg to 60 mg x2 days, with taper, had prescriptions sent to pharmacy. Pt reported he was on his way to get the OP X- ray, and while walking became acutely more short of breath, scaring his daughter , and decided to come to the ED for evaluation. Pt denied chest pain. Pt also admitted to increased LE swelling x2 days. PMD: [facility] Pulmonology: Cl Cardiology: [place] ROS General: denied fever, chills, generalized weakness. HEENT: denied sore throat, rhinorrhea, ear pain. Cardiovascular: admitted to lower extremity swelling. denied chest pain, palpitations, syncope, diaphoresis. Respiratory: admitted to shortness of breath, cough, sputum production. denied hemoptysis. Gastrointestinal: denied abdominal pain, nausea, vomiting, diarrhea, constipation, blood in stool. Genitourinary: denied dysuria, increased urinary frequency, hematuria, urinary incontinence, flank pain. Back: denied back pain. Musculoskeletal: denied joint pain, muscle pain, joint swelling. Neurological: denied headache, dizziness, numbness, tingling, weakness. Integumentary: denied rash, laceration, abrasion. Hematologic/Lymphatic: denied bruising or bleeding. PE Constitutional: Well-nourished, Well-developed, appearing stated age. HEENT: head is normocephalic, atraumatic. EOMI. PERRLA. Neck: supple. Full ROM. Cardiovascular: regular heart rhythm. no murmurs. no pericardial friction rub. Respiratory: crackles to right base. decreased breath sounds to left base. no wheezing. no stridor. speaking full sentences. no labored breathing. Gastrointestinal: soft, nontender. normal bowel sounds. no rebound, guarding, masses. Extremities: peripheral pulses intact. 4+ pitting edema bilaterally. Neurological: CN 2-12 grossly intact. moves all four extremities. Psych: awake, alert, oriented x3. follows commands. answers questions appropriately. Past History - Past Medical History Allergies/Adverse Reactions: Allergies Allergy/AdvReac Type Severity Reaction Status Date / Time No Known Drug Allergies Allergy Verified 05/14/19 15:13 shrimp Allergy Unknown lip Uncoded 05/14/19 15:13 swelling Home Medications: Ambulatory Orders Aspirin Coated [Ecotrin -] 81 mg PO DAILY tablet.ec 09/04/17 Atorvastatin Ca [Lipitor] 40 mg PO HS tablet 09/04/17 Budesonide/Formeterol Fumarate [SYMBICORT 80/4.5mcg -] 2 puff IH BID inhaler Escitalopram Oxalate [Lexapro -] 10 mg PO DAILY tablet 09/04/17 Ipratropium/Albuterol Sulfate [Combivent Respimat 20-100 Mcg] 4 gm IH QID #1 aer.w.adap 09/04/17 Tiotropium [place] [Spiriva] 1 puff IH DAILY inh 09/04/17 Ranitidine [Zantac -] 150 mg PO DAILY 06/01/18 Terbinafine HCl [Terbinafine] 1 applic TP AC #30 cream..g. 10/10/18 Magnesium 200 mg PO DAILY 10/17/18 predniSONE [Deltasone -] 5 mg PO DAILY 10/17/18 - Immunization History Td Vaccination: Yes TDAP Vaccination: Yes Immunization Up to Date: Yes - Psycho Social/Smoking Cessation Hx Smoking Status: Yes Smoking History: Former smoker Have you smoked in the past 12 months: No Number of Cigarettes Smoked Daily: 0 If you are a former smoker, when did you quit?: 40 years ago Cigars Per Day: 0 Information on smoking cessation initiated: No Hx Alcohol Use: No Drug/Substance Use Hx: No Substance Use Type: None Hx Substance Use Treatment: No *Physical Exam - Vital Signs Last Vital Signs Temp Pulse Resp BP Pulse Ox 98.4 F 68 18 124/51 L 95 05/14/19 15:10 05/14/19 15:10 05/14/19 15:10 05/14/19 15:10 05/14/19 15:10 ED Treatment Course - LABORATORY CBC & Chemistry Diagram: 05/14/19 15:40 05/14/19 15:40 Medical Decision Making - Medical Decision Making 88 year old male with above PMH presented to ED for SOB, change in sputum, increased LE swelling. Initial Vital Signs Temp Pulse Resp BP Pulse Ox 98.4 F 68 18 124/51 L 95 05/14/19 15:10 05/14/19 15:10 05/14/19 15:10 05/14/19 15:10 05/14/19 15:10 Afebrile. No tachycardia. No tachypnea. Mild diastolic hypotension. No hypoxia on room air. EKG performed at 1504: rate 71, regular rhythm, normal axis, normal intervals, no acute ST changes. CBC WBC 9.4 K/mm3 (4.0-10.0) 05/14/19 15:40 RBC 4.81 M/mm3 (4.00-5.60) 05/14/19 15:40 Hgb 14.6 GM/dL (11.7-16.9) 05/14/19 15:40 Hct 43.9 % (35.4-49) 05/14/19 15:40 MCV 91.3 fl (80-96) 05/14/19 15:40 MCH 30.3 pg (25.7-33.7) 05/14/19 15:40 MCHC 33.2 g/dl (32.0-35.9) 05/14/19 15:40 RDW 14.8 % (11.9-15.9) 05/14/19 15:40 Plt Count 232 K/MM3 (134-434) D 05/14/19 15:40 MPV 7.7 fl (7.5-11.1) 05/14/19 15:40 Absolute Neuts (auto) 8.0 K/mm3 (1.5-8.0) 05/14/19 15:40 Neutrophils % 84.7 % (42.8-82.8) H 05/14/19 15:40 Lymphocytes % 8.4 % (8-40) D 05/14/19 15:40 Monocytes % 5.3 % (3.8-10.2) 05/14/19 15:40 Eosinophils % 0.8 % (0-4.5) 05/14/19 15:40 Basophils % 0.8 % (0-2.0) 05/14/19 15:40 Nucleated RBC % 0 % (0-0) 05/14/19 15:40 No leukocytosis. No anemia. CMP Sodium 140 mmol/L (136-145) 05/14/19 15:40 Potassium 4.2 mmol/L (3.5-5.1) 05/14/19 15:40 Chloride 107 mmol/L (98-107) 05/14/19 15:40 Carbon Dioxide 28 mmol/L (21-32) 05/14/19 15:40 Anion Gap 5 MMOL/L (8-16) L 05/14/19 15:40 BUN 22.6 mg/dL (7-18) H 05/14/19 15:40 Creatinine 0.9 mg/dL (0.55-1.3) 05/14/19 15:40 Est GFR (CKD-EPI)AfAm 89.32 05/14/19 15:40 Est GFR (CKD-EPI)NonAf 77.06 05/14/19 15:40 Random Glucose 84 mg/dL (74-106) 05/14/19 15:40 Lactic Acid 1.3 mmol/L (0.4-2.0) 05/14/19 15:40 Calcium 8.8 mg/dL (8.5-10.1) 05/14/19 15:40 Total Bilirubin 0.7 mg/dL (0.2-1) 05/14/19 15:40 AST 34 U/L (15-37) 05/14/19 15:40 ALT 28 U/L (13-61) 05/14/19 15:40 Alkaline Phosphatase 47 U/L (45-117) 05/14/19 15:40 Troponin I 0.05 ng/ml (0.00-0.05) 05/14/19 15:40 Total Protein 6.1 g/dl (6.4-8.2) L 05/14/19 15:40 Albumin 3.5 g/dl (3.4-5.0) 05/14/19 15:40 No electrolyte abnormalities. No REBECCA. No transaminitis. Troponin 0.05, will repeat. BNP added on No lactic acidosis CXR shows pulmonary vascular congestion by my and Dr. Ren's read. -Pending official report Urine Test Results Urine Color Yellow 05/14/19 15:40 Urine Appearance Cloudy 05/14/19 15:40 Urine pH 5.5 (5.0-8.0) 05/14/19 15:40 Ur Specific [place] 1.016 (1.010-1.035) 05/14/19 15:40 Urine Protein Negative (NEGATIVE) 05/14/19 15:40 Urine Glucose (UA) Negative (NEGATIVE) 05/14/19 15:40 Urine Ketones Negative (NEGATIVE) 05/14/19 15:40 Urine Blood Trace (NEGATIVE) 05/14/19 15:40 Urine Nitrite Negative (NEGATIVE) 05/14/19 15:40 Urine Bilirubin Negative (NEGATIVE) 05/14/19 15:40 Ur Leukocyte Esterase 3+ (NEGATIVE) H 05/14/19 15:40 Positive for UTI. Medications ordered: Ceftriaxone 1g IV once, Azithromycin 500 mg PO once, Solumedrol 125 mg IV once 05/14/19 17:38 CXR report: Name: [facility] DEPARTMENT OF RADIOLOGY Phys: Sharonda Murray NP : [id number] Age: 88 Sex: M [facility] Acct: [id number] Loc: [address] Exam Date: 05/14/19 Status: [place] [address] Unit Number: [id number] EXAM#: TYPE/EXAM: RESULT: [id number] RAD/CHEST X-RAY PORTABLE* Portable chest: Sepsis A single AP view of the chest is been submitted. Since prior studies of and 06/01/2018, the chronic lung findings have increased slightly. There are increased interstitial and nodular findings with spiculated masses in the upper lobes. There is a normal heart with unfolded aorta and normal solis. For more complete evaluation, further imaging with CT may be of help. The patient's last chest CT was performed on 02/28/2018. Please see that report. Graph Impression: Slightly worse. Slight increase in chronic pulmonary changes with known spiculated masses in the upper lobes as shown on CT from 02/28/2018. Follow- up recommended. New CT may be of help. Reported By: Tyron Nguyen MD 05/14/19 1728 05/14/19 18:10 BNP >500 Pt reported home lasix dose 20 mg PO daily. Medications ordered: lasix 20 mg IV once Discharge - Discharge Information Problems reviewed: Yes Clinical Impression/Diagnosis: CHF exacerbation, COPD exacerbation, Shortness of breath Condition: Stable - Admission Yes - Follow up/Referral - Patient Discharge Instructions - Post Discharge Activity
[2019-05-14] MEDS ORDERED: CEFTRIAXONE 1 GM in DEXTROSE 5%-WATER - 100 ML IVPB ONE (17:32)
[2019-05-14] MEDS ORDERED: AZITHROMYCIN 500 MG TABLET PO ONE (17:33)
[2019-05-14] MEDS ORDERED: methylPREDNISolone NA SUCC 125 MG/2 ML VIAL IVPUSH ONE (17:45)
[2019-05-14 17:51] LABS: N-TERMINAL BNP 588.5 pg/ml (5-450)
[2019-05-14] MEDS ORDERED: AZITHROMYCIN IVPB 500 MG/250 ML BAG IVPB ONE (18:01)
[2019-05-14] MEDS ORDERED: methylPREDNISolone NA SUCC 125 MG/2 ML VIAL ONE (18:02)
[2019-05-14] MEDS ORDERED: CEFTRIAXONE 1 GM/50 ML BAG ONE ×2 (18:02→18:03)
[2019-05-14] MEDS ORDERED: AZITHROMYCIN 250 MG TABLET ONE (18:03)
[2019-05-14] MEDS ORDERED: AZITHROMYCIN IVPB 500 MG in DEXTROSE 5%-WATER - 250 ML IVPB ONE (18:08)
[2019-05-14] MEDS ORDERED: FUROSEMIDE 40 MG/4 ML INJECTABLE VIAL IVPUSH ONE (18:11)
--- NOTE | 2019-05-14 18:14 | PDOC ---
Attending Attestation - Resident Resident Name: Jenae Yu - ED Attending Attestation I have performed the following: I have examined & evaluated the patient, The case was reviewed & discussed with the resident, I agree w/resident's findings & plan, Exceptions are as noted - HPI HPI: 05/14/19 18:09 Agree with resident HPI - Physicial Exam PE: 05/14/19 18:09 Agree with resident exam - Medical Decision Making 05/14/19 18:10 88yo M hx CAD s/p stent 2017, COPD on 2L home O2, HTN, HLD presents to the emergency department with progressive shortness of breath for 2 days. Patient was currently being managed as a COPD and CHF exacerbation by his paper sheeter , however, on his way home he felt more short of breath prompting his daughter to bring him to the emergency department for evaluation. His work-up here is remarkable for some congestive changes in his chest x-ray. His BNP is elevated to the 500s. On exam he has 2+ lower extremity pitting edema. Differential includes COPD +/-CHF versus pneumonia versus ACS. Plan at this time to cover patient with ceftriaxone and Azitrho for presumed pneumonia, trial small dose of Lasix and admit for further management. Heart Score/ECG Review #1 05/14/19 18:13 Twelve-lead EKG was performed and reviewed by me. Sinus rhythm, rate 71. Left axis deviation. No ST elevations
[2019-05-14] MEDS ORDERED: FUROSEMIDE 40 MG/4 ML INJECTABLE VIAL ONE (18:39)
--- NOTE | 2019-05-14 19:17 | PN ---
Teaching Attending Note Name of Resident: Carol Haney ATTENDING PHYSICIAN STATEMENT I saw and evaluated the patient. I reviewed the resident's note and discussed the case with the resident. I agree with the resident's findings and plan as documented. SUBJECTIVE: Patient is an 87 year old man with PMH CAD (s/p stent 2016), COPD (on 2L home O2 ), HTN and HLD presents to the ER with shortness of breath for 2 days. Patient reported he has had increased sputum and change from clear to yellow for 2 days. He was seen by his Supervisor Dials Dr. Smallwood today, was advised to have a CXR. Was going to increase daily prednisone from 5 mg to 60 mg x2 days, with taper and had prescriptions sent to pharmacy. Patient reports he was on his way to get the CXR and while walking became acutely more short of breath, and decided to come to the ER for evaluation. Patient denies chest pain, fever, chills, headache, nausea, vomiting or diarrhea. Also has increased LE swelling for 2 days. Patient denies tobacco, alcohol or illicit drug use. No obvious recent sick contacts or travel. Got Flu shot. OBJECTIVE: Alert Vital Signs Period Temp Pulse Resp BP Sys/Donovan Pulse Ox Last 24 Hr 98.4 F 68 18 124/51 95 HEENT: No Jaundice, eye redness or discharge, PERRLA, EOMI. Normocephalic, atraumatic. External ears are normal and hearing is grossly intact. No nasal discharge. Neck: Supple, nontender. No palpable adenopathy or thyromegaly. No JVD Chest: Good effort. Expiratory wheezing. Clear to percussion. Heart: Regular. No S3, rub or murmur Abdomen: Not distended, soft, nontender and no HSM. No rebound or guarding. Normal bowel sounds. Ext: Peripheral pulses intact. Venous stasis ulcers. Leg edema. Skin: Warm and dry. No petechiae, rash or ecchymosis. Neuro: Alert. Oriented x3. CN 2-12 grossly intact. Sensation grossly intact in all four extremities and DTR are symmetric. Psych: Appropriate mood and affect. Good insight. Home Medications Medication Instructions Recorded Aspirin Coated [Ecotrin -] 81 mg PO DAILY tablet.ec 09/04/17 Atorvastatin Ca [Lipitor] 40 mg PO HS tablet 09/04/17 Budesonide/Formeterol Fumarate 2 puff IH BID inhaler 09/04/17 [SYMBICORT 80/4.5mcg -] Escitalopram Oxalate [Lexapro -] 10 mg PO DAILY tablet 09/04/17 Ipratropium/Albuterol Sulfate 4 gm IH QID #1 aer.w.adap 09/04/17 [Combivent Respimat 20-100 Mcg] Tiotropium [place] [Spiriva] 1 puff IH DAILY inh 09/04/17 Ranitidine [Zantac -] 150 mg PO DAILY 06/01/18 Terbinafine HCl [Terbinafine] 1 applic TP AC #30 cream..g. 10/10/18 Magnesium 200 mg PO DAILY 10/17/18 predniSONE [Deltasone -] 5 mg PO DAILY 10/17/18 Abnormal Lab Results 05/14/19 05/14/19 05/14/19 15:40 15:40 15:40 Neutrophils % 84.7 H PT with INR 13.40 H INR 1.13 H POC VBG pO2 VBG O2 Sat ([place]) VBG Base Excess Anion Gap 5 L BUN 22.6 H B-Natriuretic Peptide 588.5 H Total Protein 6.1 L Ur Leukocyte Esterase 05/14/19 05/14/19 15:40 15:40 Neutrophils % PT with INR INR POC VBG pO2 < 49 H VBG O2 Sat ([place]) 37.7 L VBG Base Excess 2.2 H Anion Gap BUN B-Natriuretic Peptide Total Protein Ur Leukocyte Esterase 3+ H ASSESSMENT AND PLAN: 1. COPD exacerbation and UTI - CXR shows increased interstitial markings and spiculated masses in the upper lobes. ECHO from 06/02/18 consistent with diastolic dysfunction. EKG shows NSR, PACs, LAD and no acute ST-T wave changes. Will treat with Solumedrol, Duoneb, Symbicort, Azithromycin and Rocephin. Treat CHF with IV lasix, get daily standing weight and restrict dietary salt intake. Will continue comprehensive care for all of patients comorbid conditions O2 support for COPD and care of venous stasis ulcers. 2. Hypertension - Restart suitable outpatient antihypertensive drugs when clinically appropriate. Revise regimen to ensure [id number] excellent BP control and cancer genetic counselor patient on the injurious effects of uncontrolled hypertension. Nonpharmacologic measures to control hypertension like weight loss , salt restriction and exercise discussed. Importance of adherence to treatment regimen and attainment of normotension emphasized. 3. DVT prophylaxis - Lovenox 40 mg SQ q 24 hours. 4. Advance directives - Full code
--- NOTE | 2019-05-14 19:24 | HP ---
CHIEF COMPLAINT: SOB lethargy PCP: Dr. Dahl HISTORY OF PRESENT ILLNESS: 88 y/o male PMH CAD (s/p stent 2016), COPD (home o2; 2L) HTN, HLD, anxiety c/o SOB for 2 days. He states that he had a cough that progressively worsened, initially productive of small amounts of white phlegm and later yellow to green. Assoc symptom of lethargy. He denies sick contacts, new food, and recent travel. He received is flu shot this season. The pt visited his television production clerk whom recommended CXR. Pt decompensated en route to hospital; became increasingly SOB. Pt has a normal echo in 2018. He denies CP and NVFD. He has denies hemoptysis and any recent weight change. ER course was notable for: (1) Given 20 mg lasix (2) Chest CT: chronic COPD changes, known spiculated mass on upper lobe * radiology update* concerning mass given mediastinal lymphadenopahty. Cannot r/o malignancy vs reactive lymph nodes. Recommendation of PET scan. Recent Travel: Denies PAST MEDICAL HISTORY: CAD (s/p stent 2016), COPD (home o2; 2L) HTN, HLD, anxiety PAST SURGICAL HISTORY: BL cataract removal Social History: Smoking: Former Alcohol: denies Drugs: denies Allergies: No Known Drug Allergies Allergy (Verified 05/14/19 15:13). Shrimp Allergy (Unknown, Uncoded 05/14/19 15:13 lip swelling HOME MEDICATIONS: Home Medications Medication Instructions Recorded Aspirin Coated [Ecotrin -] 81 mg PO DAILY tablet.ec 09/04/17 Atorvastatin Ca [Lipitor] 40 mg PO HS tablet 09/04/17 Budesonide/Formeterol Fumarate 2 puff IH BID inhaler 09/04/17 [SYMBICORT 80/4.5mcg -] Escitalopram Oxalate [Lexapro -] 10 mg PO DAILY tablet 09/04/17 Ipratropium/Albuterol Sulfate 4 gm IH QID #1 aer.w.adap 09/04/17 [Combivent Respimat 20-100 Mcg] Tiotropium [place] [Spiriva] 1 puff IH DAILY inh 09/04/17 Ranitidine [Zantac -] 150 mg PO DAILY 06/01/18 Terbinafine HCl [Terbinafine] 1 applic TP AC #30 cream..g. 10/10/18 Magnesium 200 mg PO DAILY 10/17/18 predniSONE [Deltasone -] 5 mg PO DAILY 10/17/18 REVIEW OF SYSTEMS CONSTITUTIONAL: Absent: fever, chills, diaphoresis, generalized weakness, malaise, loss of appetite, weight change HEENT: Absent: rhinorrhea, nasal congestion, throat pain, throat swelling, difficulty swallowing, mouth swelling, ear pain, eye pain, visual changes CARDIOVASCULAR: Absent: chest pain, syncope, palpitations, irregular heart rate, lightheadedness , peripheral edema RESPIRATORY: Absent: cough, shortness of breath, dyspnea with exertion, orthopnea, wheezing, stridor, hemoptysis GASTROINTESTINAL: Absent: abdominal pain, abdominal distension, nausea, vomiting, diarrhea, constipation, melena, hematochezia GENITOURINARY: Absent: dysuria, frequency, urgency, hesitancy, hematuria, flank pain, genital pain MUSCULOSKELETAL: Absent: myalgia, arthralgia, joint swelling, back pain, neck pain SKIN: Absent: rash, itching, pallor HEMATOLOGIC/IMMUNOLOGIC: Absent: easy bleeding, easy bruising, lymphadenopathy, frequent infections ENDOCRINE: Absent: unexplained weight gain, unexplained weight loss, heat intolerance, cold intolerance NEUROLOGIC: Absent: headache, focal weakness or paresthesias, dizziness, unsteady gait, seizure, mental status changes, bladder or bowel incontinence PSYCHIATRIC: Absent: anxiety, depression, suicidal or homicidal ideation, hallucinations. PHYSICAL EXAMINATION Vital Signs - 24 hr 05/14/19 15:10 Temperature 98.4 F Pulse Rate 68 Respiratory 18 Rate Blood Pressure 124/51 L O2 Sat by Pulse 95 Oximetry (%) GENERAL: AOx3, in no acute distress, resting comfortably in bed. Audible wheezing. HEAD: NCAT EYES: DUSTY, EOMI, conjunctiva clear. ENT: Ears normal, nares patent, oropharynx clear without exudates. Moist mucous membranes. NECK: Normal range of motion, supple without lymphadenopathy, JVD, or masses. LUNGS: CTAB. Upper lobe wheezes. No crackles. No accessory muscle use. HEART: RRR s1 s2 ABDOMEN: Soft, BS present in all 4 quadrants, non-distended, no JVD, MUSCULOSKELETAL: No bony deformities or tenderness. No CVA tenderness. UPPER EXTREMITIES: Diffuse echymoses LEFT>RIGHT. 2+ pulses, warm, well- perfused. No cyanosis. No clubbing. Trace edema BL. LOWER EXTREMITIES: Trace edema. Venous stasis BL. 2+ pulses, warm, well- perfused. No calf tenderness. NEUROLOGICAL: Cranial nerves II-XII intact. Sensation intact. Strength 5/5 throughout. Normal speech. Gait not appreciated. PSYCHIATRIC: Cooperative. Good eye contact. Appropriate mood and affect. SKIN: Diffuse echymoses LEFT>RIGHT in UE. Chronic venous stasis in LE. Warm, dry , normal turgor, normal capillary refill. Laboratory Results - last 24 hr 05/14/19 05/14/19 05/14/19 15:40 15:40 15:40 WBC 9.4 RBC 4.81 Hgb 14.6 Hct 43.9 MCV 91.3 MCH 30.3 MCHC 33.2 RDW 14.8 Plt Count 232 D MPV 7.7 Absolute Neuts (auto) 8.0 Neutrophils % 84.7 H Lymphocytes % 8.4 D Monocytes % 5.3 Eosinophils % 0.8 Basophils % 0.8 Nucleated RBC % 0 PT with INR 13.40 H INR 1.13 H PTT (Actin FS) 32.6 VBG pH POC VBG pCO2 POC VBG pO2 VBG HCO3 VBG O2 Sat ([place]iley) VBG Base Excess Sodium 140 Potassium 4.2 Chloride 107 Carbon Dioxide 28 Anion Gap 5 L BUN 22.6 H Creatinine 0.9 Est GFR (CKD-EPI)AfAm 89.32 Est GFR (CKD-EPI)NonAf 77.06 Random Glucose 84 Lactic Acid Calcium 8.8 Total Bilirubin 0.7 AST 34 ALT 28 Alkaline Phosphatase 47 Troponin I 0.05 B-Natriuretic Peptide 588.5 H Total Protein 6.1 L Albumin 3.5 Urine Color Urine Appearance Urine pH Ur Specific [place] Urine Protein Urine Glucose (UA) Urine Ketones Urine Blood Urine Nitrite Urine Bilirubin Urine Urobilinogen Ur Leukocyte Esterase Urine WBC (Auto) Urine RBC (Auto) Urine Casts (Auto) U Epithel Cells (Auto) Urine Bacteria (Auto) 05/14/19 05/14/19 05/14/19 15:40 15:40 15:40 WBC RBC Hgb Hct MCV MCH MCHC RDW Plt Count MPV Absolute Neuts (auto) Neutrophils % Lymphocytes % Monocytes % Eosinophils % Basophils % Nucleated RBC % PT with INR INR PTT (Actin FS) VBG pH 7.38 POC VBG pCO2 47.6 POC VBG pO2 < 49 H VBG HCO3 27.5 VBG O2 Sat (Wiley) 37.7 L VBG Base Excess 2.2 H Sodium Potassium Chloride Carbon Dioxide Anion Gap BUN Creatinine Est GFR (CKD-EPI)AfAm Est GFR (CKD-EPI)NonAf Random Glucose Lactic Acid 1.3 Calcium Total Bilirubin AST ALT Alkaline Phosphatase Troponin I B-Natriuretic Peptide Total Protein Albumin Urine Color Yellow Urine Appearance Cloudy Urine pH 5.5 Ur Specific [place] 1.016 Urine Protein Negative Urine Glucose (UA) Negative Urine Ketones Negative Urine Blood Trace Urine Nitrite Negative Urine Bilirubin Negative Urine Urobilinogen 0.2 Ur Leukocyte Esterase 3+ H Urine WBC (Auto) 140 Urine RBC (Auto) 3 Urine Casts (Auto) 21 U Epithel Cells (Auto) 0.2 Urine Bacteria (Auto) 8.8 ASSESSMENT/PLAN: 88 y/o male PMH CAD (s/p stent 2017), COPD (home o2; 2L) HTN, HLD, anxiety c/o SOB for 2 days. Associated cough. Normal ECHO in 2018. CT evidence of chronic changes to lungs 2/2 COPD. Concerning mass in chest CT given mediastinal lymph nodes. # COPD exacerbation - Duonebs - Albuterol - Salmeterol - Symbacort - Solumedrol 60 mg po - Azithromycin - Rocephin # UTI - Azithromycin - Rocephin # Pulmonary mass - PET scan - Consult pulmonology # HTN - Home regimen #F/E/N - PO - Cont. to monitor - Low sodium diet # DVT prophylaxis - Heparin # Disposition - Admit to observation - Please communicate plan with , Lori Ramirez Tank Barakat MD Visit type - Emergency Visit Emergency Visit: Yes ED Registration Date: 05/14/19 Care time: The patient presented to the Emergency Department on the above date and was hospitalized for further evaluation of their emergent condition. - New Patient This patient is new to me today: Yes Date on this admission: 05/15/19 - Critical Care Critical Care patient: No ATTENDING PHYSICIAN STATEMENT I saw and evaluated the patient. I reviewed the resident's note and discussed the case with the resident. I agree with the resident's findings and plan as documented. SUBJECTIVE: OBJECTIVE: ASSESSMENT AND PLAN:
[2019-05-14] MEDS ORDERED: HEPARIN NA (PORCINE) 5,000 UNITS/ML 1ML VIAL ONE (21:42)
[2019-05-14] MEDS: HEPARIN NA (PORCINE) 5,000 UNITS/ML 1ML VIAL SQ SCH (21:55)
[2019-05-14] MEDS ORDERED: ALBUTEROL SO4 0.083% IH SOL 2.5 MG/3 ML VIAL.NEB. NEB PRN (22:49)
[2019-05-15] MEDS ORDERED: ALBUTEROL SO4 0.083% IH SOL 2.5 MG/3 ML VIAL.NEB. NEB PRN (00:35)
[2019-05-15] MEDS ORDERED: HEPARIN NA (PORCINE) 5,000 UNITS/ML 1ML VIAL ONE (06:24)
[2019-05-15] MEDS ORDERED: methylPREDNISolone NA SUCC 40 MG/1 ML VIAL ONE (06:24)
[2019-05-15] MEDS: HEPARIN NA (PORCINE) 5,000 UNITS/ML 1ML VIAL SQ SCH ×3 (06:39→22:28)
[2019-05-15] MEDS: methylPREDNISolone NA SUCC 40 MG/1 ML VIAL IVPUSH SCH ×3 (06:39→18:36)
[2019-05-15 07:40] LABS: HEMATOCRIT 39.8 % (35.4-49); HEMOGLOBIN 13.4 GM/dL (11.7-16.9); MCH 30.8 pg (25.7-33.7); MCHC 33.8 g/dl (32.0-35.9); MEAN CELL VOLUME 91.1 fl (80-96); MEAN PLT VOLUME 7.9 fl (7.5-11.1); PLATELET COUNT 229 K/MM3 (134-434); RBC 4.37 M/mm3 (4.00-5.60); RDW 14.5 % (11.9-15.9); WHITE BLOOD COUNT 5.1 K/mm3 (4.0-10.0)
[2019-05-15 08:00] LABS: BLOOD UREA NITROGEN 24.9 mg/dL (7-18); CALCIUM 8.7 mg/dL (8.5-10.1); CREATININE 0.9 mg/dL (0.55-1.3); PHOSPHOROUS 3.9 mg/dL (2.5-4.9); POTASSIUM 4.2 mmol/L (3.5-5.1)
[2019-05-15] MEDS: ALBUTEROL SO4 2.5/IPRATROPIUM 0.5 INH SOL 3 ML VIAL.NEB. NEB SCH ×4 (08:09→20:20)
[2019-05-15] MEDS ORDERED: CEFTRIAXONE 1 GM/50 ML BAG ONE (09:52)
[2019-05-15] MEDS: CEFTRIAXONE 1 GM in DEXTROSE 5%-WATER - 50 ML IVPB SCH (09:59)
[2019-05-15] MEDS: AZITHROMYCIN IVPB 500 MG/250 ML BAG IVPB SCH ×2 (10:00→13:54)
[2019-05-15] MEDS: BUDESONIDE/FORMETEROL FUMARATE 80/4.5 mcg INHALER IH SCH ×2 (10:00→22:28)
[2019-05-15] MEDS ORDERED: methylPREDNISolone NA SUCC 40 MG/1 ML VIAL IVPUSH SCH (10:00)
[2019-05-15] MEDS ORDERED: CEFTRIAXONE 2 GM in DEXTROSE 5%-WATER 100 ML IVPB SCH (10:00)
--- NOTE | 2019-05-15 10:03 | CON.CARD ---
Consult Consult Specialty:: Cardiology Referred by:: Dr. Miramontes Reason for Consultation:: SOB - History of Present Illness Chief Complaint: SOB History of Present Illness: 88M CAD s/p PCI after NSTEMI 2017, COPD on home O2 presents with 2 days of increased SHANNON, cough. Denies cp or anginal type pain, this feels UNLIKE his prior anginal sx. No palps. Denies fever or chills. CXR showed chronic changes, spiculated masses upper lobes. Echo 05/2018 showed Normal LV, but was TDS. - History Source History Provided By: Patient, Medical Record - Past Medical History Cardio/Vascular: Yes: HTN, Hyperlipdemia. No: AFIB Pulmonary: Yes: COPD, O2 Dependent, Pneumonia. No: Previously Intubated Gastrointestinal: Yes: Constipation Renal/: Yes: BPH Psych: Yes: Anxiety Musculoskeletal: Yes: Osteoarthritis ENT: Yes: Sinusitis - Past Surgical History Past Surgical History: Yes: Cataract Removal (bilateral) - Alcohol/Substance Use Hx Alcohol Use: No History of Substance Use: reports: None - Smoking History Smoking history: Former smoker Have you smoked in the past 12 months: No Aproximately how many cigarettes per day: 0 If you are a former smoker, when did you quit?: 40 years ago - Social History Usual Living Arrangement: With Spouse ADL: Independent Occupation: retired History of Recent Travel: No Home Medications - Allergies Allergies/Adverse Reactions: Allergies Allergy/AdvReac Type Severity Reaction Status Date / Time No Known Drug Allergies Allergy Verified 05/14/19 15:13 shrimp Allergy Unknown lip Uncoded 05/14/19 15:13 swelling - Home Medications Home Medications: Ambulatory Orders Aspirin Coated [Ecotrin -] 81 mg PO DAILY tablet.ec 09/04/17 Atorvastatin Ca [Lipitor] 40 mg PO HS tablet 09/04/17 Budesonide/Formeterol Fumarate [SYMBICORT 80/4.5mcg -] 2 puff IH BID inhaler Escitalopram Oxalate [Lexapro -] 10 mg PO DAILY tablet 09/04/17 Ipratropium/Albuterol Sulfate [Combivent Respimat 20-100 Mcg] 4 gm IH QID #1 aer.w.adap 09/04/17 Tiotropium [place] [Spiriva] 1 puff IH DAILY inh 09/04/17 Ranitidine [Zantac -] 150 mg PO DAILY 06/01/18 Terbinafine HCl [Terbinafine] 1 applic TP AC #30 cream..g. 10/10/18 Magnesium 200 mg PO DAILY 10/17/18 predniSONE [Deltasone -] 5 mg PO DAILY 10/17/18 Family Medical History Family History: Unremarkable (not pertinent to this presentation) Review of Systems - Review of Systems Constitutional: reports: No Symptoms Eyes: reports: No Symptoms HENT: reports: No Symptoms Neck: reports: No Symptoms Cardiovascular: reports: Shortness of Breath Respiratory: reports: Cough, Exercise Intolerance, SOB on Exertion Gastrointestinal: denies: No Symptoms, Abdominal Pain, Bloating, Constipation, Diarrhea, Dysphagia, Indigestion, Melena, Nausea, Rectal Bleeding, Vomiting, Vomiting Blood, Other Genitourinary: denies: No Symptoms, Burning, Discharge, Dysuria, Flank Pain, Frequency, Hematuria, Incontinence, Lesions, Menses, Pain, Testicular Mass, Testicular Pain, Testicular Swelling, Urgency, Vaginal Bleeding, Other Musculoskeletal: denies: No Symptoms, Back Pain, Crepitus, Decreased ROM, Extremity Pain, Joint Pain, Joint Swelling, Muscle Pain, Muscle Cramps, Muscle Weakness, Other Integumentary: denies: No Symptoms, Blister, Bruising, Change in Color, Eczema, Erythema, Incision, Lesions, Lump, Pallor, Pruritis, Rash, Wound, Other Neurological: denies: No Symptoms, Change in LOC, Change in Speech, Confusion, Dizziness, Headache, Incoordination, Numbness, Parasthesia, Pre-Existing Deficit , Seizure, Syncope, Tremors, Unsteady Gait, Weakness, Other Endocrine: denies: No Symptoms, Excessive Sweating, Flushing, Increased Hunger, Increased Thirst, Intolerance to Cold, Intolerance to Heat, Unexplained Weight Gain, Unexplained Weight Loss, Other Hematology/Lymphatic: denies: No Symptoms, Easily Bruised, Excessive Bleeding, Swollen Glands, Other Psychiatric: denies: No Symptoms, Altered Sleep Pattern, Anxiety, Depression, Hallucinations, Panic, Paranoia, Suicidal, Other - Risk Factors Known Risk Factors: Yes: Other (known CAD) Vital Signs: Vital Signs Temperature 97.8 F 05/15/19 05:59 Pulse Rate 67 05/15/19 09:53 Respiratory Rate 17 05/15/19 09:53 Blood Pressure 130/64 05/15/19 09:53 O2 Sat by Pulse Oximetry (%) 98 05/15/19 09:53 Constitutional: Yes: No Distress, Calm Eyes: Yes: Conjunctiva Clear Respiratory: Yes: Other (decreased breath sounds bilaterally) Gastrointestinal: Yes: Soft Cardiovascular: Yes: Regular Rate and Rhythm JVD: No Carotid Bruit: No Heart Sounds: Yes: S1, S2 Edema: Yes Edema: LLE: 1+, RLE: 1+ Neurological: Yes: Alert, Oriented - Other Data Labs, Other Data: CBC, BMP 05/15/19 05:30 05/15/19 05:30 INR, PTT INR 1.13 (0.83-1.09) H 05/14/19 15:40 Troponin, BNP 05/14/19 15:40 Troponin I 0.05 B-Natriuretic Peptide 588.5 H Troponin, BNP 05/14/19 15:40 Troponin I 0.05 B-Natriuretic Peptide 588.5 H Laboratory Tests 05/14/19 15:40 Troponin I 0.05 B-Natriuretic Peptide 588.5 H NSR 71bpm, LAD, old septal HI, APC Echo: Pending Imaging - Results Cat Scan: Report Reviewed EKG: Image Reviewed Assessment/Plan IMP: COPD on home O2 w/ acute exacerbation Lung masses, chronic Probable acute on chronic diastolic CHF, mild exacerbation CAD s/p PCI REC: 1. Abx, steroids and further w/u lung masses as per Pulm (chronic) 2. Would add Lasix 40mg IV daily with close monitoring of weight and lytes 3. Cont home meds for his stable CAD. 4. Repeat Echo. Will follow.
[2019-05-15] MEDS ORDERED: AZITHROMYCIN IVPB 500 MG/250 ML BAG IVPB ONE (10:08)
--- NOTE | 2019-05-15 11:04 | PN ---
Progress Note (short form) - Note Progress Note: PULMONARY CONSULTATION DICTATED 05/15/19 IMP DYSPNEA COPD O2 DEPENDENT WITH ACUTE EXACERBATION URI DIASTOLIC DYSFUNCTION ASHD S/P NSTEMI,S/P STENTS RUL,RO PULMONARY NODULES STABLE PLAN INHALED BRONCHODILATORS SHORT COURSE OF MEDROL O2 ABX LASIX DAILY WT MONITOR LYTES,CBC DR HEATH Problem List - Problems (1) COPD exacerbation Code(s): J44.1 - CHRONIC OBSTRUCTIVE PULMONARY DISEASE W (ACUTE) EXACERBATION (2) SOB (shortness of breath) Code(s): R06.02 - SHORTNESS OF BREATH (3) CAD (coronary artery disease) Code(s): I25.10 - ATHSCL HEART DISEASE OF [place] CORONARY ARTERY W/O ANG PCTRS Qualifiers: [place] vs. transplanted heart: [place] heart (4) Hyperlipidemia Code(s): E78.5 - HYPERLIPIDEMIA, UNSPECIFIED (5) Hypertension Code(s): I10 - ESSENTIAL (PRIMARY) HYPERTENSION Qualifiers: Hypertension type: essential hypertension Qualified Code(s): I10 - Essential (primary) hypertension (6) Leg edema Code(s): R60.0 - LOCALIZED EDEMA (7) Lung nodule Code(s): R91.1 - SOLITARY PULMONARY NODULE (8) Lung nodule seen on imaging study Code(s): R91.1 - SOLITARY PULMONARY NODULE (9) Shortness of breath Code(s): R06.02 - SHORTNESS OF BREATH (10) UTI (urinary tract infection) Code(s): N39.0 - URINARY TRACT INFECTION, SITE NOT SPECIFIED Qualifiers: Urinary tract infection type: site unspecified Hematuria presence: without hematuria Qualified Code(s): N39.0 - Urinary tract infection, site not specified
--- NOTE | 2019-05-15 11:54 | ECHO ---
Name: SERAFIN MUHAMMAD Exam:Adult Echocardiogram Study Date: 05/15/2019 10:51 AM Age: 88 yrs Reason For Study: CHF Height: 69 in Weight: 168 lb BSA: 1.9 m2 MMode/2D Measurements & Calculations IVSd: 1.2 cm Ao root diam: 2.9 cm LVIDd: 3.3 cm LA dimension: 3.4 cm LVIDs: 2.8 cm ACS: 1.3 cm LVPWd: 1.0 cm EDV(Teich): 44.0 ml LVOT diam: 1.9 cm ESV(Teich): 29.0 ml Doppler Measurements & Calculations MV E max tiffanie: 78.5 cm/sec Ao V2 max: 107.5 cm/sec MV A max tiffanie: 94.3 cm/sec Ao max P.6 mmHg MV E/A: 0.83 Ao V2 mean: 57.1 cm/sec MV dec time: 0.19 sec Ao mean P.7 mmHg Ao V2 VTI: 20.3 cm SAMANTHA(I,D): 3.2 cm2 SAMANTHA(V,D): 2.2 cm2 LV V1 max P.7 mmHg MR max tiffanie: 194.0 cm/sec LV V1 mean P.6 mmHg MR max P.1 mmHg LV V1 max: 82.4 cm/sec LV V1 mean: 60.6 cm/sec LV V1 VTI: 22.4 cm SV(LVOT): 65.7 ml Procedure The study was technically difficult with many images being suboptimal in quality. Left Ventricle Left ventricular systolic function is grossly normal. Ejection Fraction = 50-55%. The transmitral spe ctral Doppler flow pattern is suggestive of impaired LV relaxation. Regional wall motion abnormalities mk ot be excluded due to limited visualization. Right Ventricle The right ventricle is grossly normal size. The right ventricular systolic function is grossly normal . Atria Normal left and right atrial size and function. Mitral Valve There is mild to moderate mitral annular calcification. There is no mitral valve stenosis. There is t race mitral regurgitation. Tricuspid Valve The tricuspid valve is normal in structure and function. There is mild tricuspid regurgitation. There was insufficient TR detected to calculate RV systolic pressure. Aortic Valve There is mild to moderate aortic sclerosis.;. No hemodynamically significant valvular aortic stenosis . No aortic regurgitation is present. Pulmonic Valve The pulmonic valve is not well seen, but is grossly normal. There is no pulmonic valvular stenosis. T here is no pulmonic valvular regurgitation. Great Vessels The aortic root is normal size. Pericardium/Pleura There is no pericardial effusion. Interpretation Summary The study was technically difficult with many images being suboptimal in quality. Regional wall motion abnormalities cannot be excluded due to limited visualization. Left ventricular systolic function is grossly normal. Ejection Fraction = 50-55%. The transmitral spectral Doppler flow pattern is suggestive of impaired LV relaxation. The right ventricle is grossly normal size. The right ventricular systolic function is grossly normal. There is mild to moderate mitral annular calcification. There is mild tricuspid regurgitation. There was insufficient TR detected to calculate RV systolic pressure. There is mild to moderate aortic sclerosis.; There is no pericardial effusion. MD Lua *Astrid 05/15/2019 11:53 AM
--- NOTE | 2019-05-15 13:18 | EKG ---
Test Reason : Blood Pressure : / mmHG Vent. Rate : 071 BPM Atrial Rate : 071 BPM P-R Int : 156 ms QRS Dur : 094 ms QT Int : 446 ms P-R-T Axes : 059 -39 013 degrees QTc Int : 484 ms SINUS RHYTHM WITH PREMATURE ATRIAL COMPLEXES LEFT AXIS DEVIATION SEPTAL INFARCT , AGE UNDETERMINED ABNORMAL ECG WHEN COMPARED WITH ECG OF 10-OCT-2018 21:38, NONSPECIFIC T WAVE ABNORMALITY NOW EVIDENT IN INFERIOR LEADS Confirmed by KIMBERLY PAZ MD ([id number]) on 05/15/2019 1:18:09 PM Referred By: Confirmed By:KIMBERLY PAZ MD
[2019-05-15] MEDS: FUROSEMIDE 40 MG/4 ML INJECTABLE VIAL IVPUSH SCH (16:23)
--- NOTE | 2019-05-15 16:49 | PN ---
Progress Note (short form) - Note Progress Note: Hospitalist Medicine States that he initially had white phlegm, which became yellow/green over the last 2 days. Was a/w SOB. Currently states that he feels better. Family visiting. Vitals 05/15/19 15:00 Temperature 97.6 F Pulse Rate 75 Respiratory 18 Rate Blood Pressure 120/54 L Physical Exam general: resting, on 2L NC 02. pleasant HEENT: NCAT, PERRLA neck: supple cardio: S1, S2 RRR. no r/m/g pulm: +decreased breath sounds b/l abdomen: soft, nontender, nondistended LE: 1+ pitting edema. pulses intact . +ecchymoses on shins b/l neuro: orthotic/prosthetic clinician 2-12 grossly intact. gait not assessed Laboratory Tests 05/14/19 05/15/19 05/15/19 15:40 05:30 05:30 WBC 5.1 Hgb 13.4 Hct 39.8 Plt Count 229 Sodium 139 Potassium 4.2 Chloride 105 Carbon Dioxide 27 BUN 24.9 H Creatinine 0.9 Random Glucose 132 H Ur Leukocyte Esterase 3+ H Urine WBC (Auto) 140 Urine RBC (Auto) 3 Urine Casts (Auto) 21 U Epithel Cells (Auto) 0.2 Urine Bacteria (Auto) 8.8 Microbiology 05/14/19 15:40 Urine - Urine Clean Catch Urine Culture - Final NO GROWTH OBTAINED 05/14/19 15:40 Blood - Peripheral Venous Blood Culture - Preliminary NO GROWTH OBTAINED AFTER 24 HOURS, INCUBATION TO CONTINUE FOR 4 DAYS. 05/14/19 15:40 Blood - Peripheral Venous Blood Culture - Preliminary NO GROWTH OBTAINED AFTER 24 HOURS, INCUBATION TO CONTINUE FOR 4 DAYS. Imaging 05/15: Chest CT: +bullous emphysematous changes b/l. spiculated nodule in RUL measuring 1.6cm Also a 11mm, similar spiculated nodule in RO. Nodules have been identified previously, and have decreased in size since 2015. also a 7mm nodule at LLL. mediastinal and b/l axillary LNs. large R parapelvic cyst. EKG: L axis deviation, qtc 483ms Assessment/Plan 88 y/o male PMH CAD (s/p stent 2017), COPD (home o2; 2L) HTN, HLD, anxiety c/o SOB for 2 days. Admitted for COPD exacerbation. #Acute COPD exacerbation -c/w riana proctor nebs, NC -medrol 60mg IVP q6h , symbicort -c/w cef, zithro (Day 2) for CAP coverage -f/u ucx, blood , sputum cx, urine legionella Ag -repeat EKG tomorrow 05/16 to check for qtc -goal sat 88-92% -Pulm consulted: Dr. Smallwood #CAD s/p stent 2017 -c/w asa, lipitor #RUL, RO nodules - stable -c/t monitor -have improved in size from previous #Mild acute on chronic diastolic CHF -added lasix 40mg IVP qd, per cardio rec -follow wts, i/o, lytes, na control 2g -f/u repeat ECHO -c/w asa -Cardio: Dr. Resendiz #HTN- controlled #HLD -c/w statin #F/E/N avoid IVF as CHF exac c/t follow lytes na controlled diet #PPX DVT: hep 5k sq tid #Dispo admitted to med-surg per cardio, tele could be d/c <Molly Ackerman - Last Filed: 05/15/19 17:03> - Note Progress Note: Seen and examined; please see resident note for further information. Agree with above as documented aside from as supplemented by myself. Personally verified all barrios historical details, PE findings, as well as all labs, imaging, and diagnostics. Discussed at length with resident and indicated consultants. No further subjective findings; continues on IV diuresis and will be changing to PO steroids. Symptoms improved but notes continued SOB and LE pitting edema. No cough or chest pain. 10 sys ROS done and negative aside from HPI NAD, AAO, resting in bed NC AT EOMI PERRLA HR wnl, s1/2+ Lungs w/ sym crackles, w/ sym exp NT ND +BS CN2-12 wnl, no fnd Normal mood, appropriate behavior, average insight Trachea midline, improved JVD compared to prior encounters. Microbiology reviewed; Bcx negative with Sputum Cx Echo 05/12: nl LV/RV. nl valve fxn, no RVSP A/P: Seen on floor; continues to improve with respect to his acute on chronic respiratory failure 2/2 COPD and ?CHF exacerbation. Changing to PO steroids when clear with pulm and will continue on IV diuresis per CV. Monitor Is and Os , QD weights, elytes (optimize K and Mg). Acute on chronic respiratory failure, 2L baseline above home requirements. COPD Exacerbation Diastolic CHF exacerbation (check echo, diminished exercise tolerance; baseline NYHA level difficult to assess given chronic COPD). Leukocytosis likely from medrol, improved CAD s/p stent 2016 (Asx; continue home asa and statin and FU further CV recs) Lung nodule (Stable; follows with Dr. Smallwood OP) Hx Controlled HTN Hx HLD (Continue with home statin, OP FLP FU) DVT ppx reviewed; c/w hep <Wellington Miramontes - Last Filed: 05/20/19 12:35>
--- NOTE | 2019-05-15 17:50 | CONS ---
DATE OF CONSULTATION: 05/15/2019 PULMONARY CONSULTATION REFERRING PHYSICIAN: Nile Dahl M.D. HISTORY OF PRESENT ILLNESS: The patient is an 88-year-old male known to me from previous hospitalization and office follow up with history of COPD on home O2, ASHD status post stent in 2017, status post non-ST ID, hypertension, hyperlipidemia, anxiety, admitted to [facility] with complaint of 2-day history of increasing shortness of breath, cough productive of white and green sputum. Patient was in my office the day of admission. At the time he had the above complaints. He was started on prednisone as well as antibiotics and advised to go for x-ray. Apparently he went to [facility] for x-ray and became with increasing shortness of breath at which time he presented to the emergency room and was subsequently admitted. Patient denies any fevers or chills. Denies any hemoptysis. He has a history of tobacco use, quit years ago. There is no history of occupational exposure to fumes. On admission he underwent a CT scan of the chest which reveals severe emphysematous change with spiculated mass right upper lobe and left upper lobe which are stable since 2015, actually decreasing in size. PAST MEDICAL HISTORY: Again, includes ASHD status post stent, status post non- ST ID, COPD on O2, hypertension, hyperlipidemia, anxiety. REVIEW OF SYSTEMS: Positive shortness of breath. Positive cough. Positive sputum. No fever. No chills. No chest pain. No palpitation. No nausea. No vomiting. No hemoptysis. CURRENT MEDICATIONS: Include Zithromax, Solu-Medrol, heparin, albuterol, DuoNeb , Ventolin, DuoNeb, and Lasix. PHYSICAL EXAMINATION: General: The patient is a well-developed, well-nourished male awake, alert, currently in no acute distress. He is afebrile. Vital Signs: Blood pressure 120/54, respiratory rate 18, O2 saturation 98% on 2 L nasal cannula. HEENT: Normocephalic, atraumatic. Neck: Supple. Heart: Regular S1, S2. Chest: Bibasilar crackles. Abdomen: Soft, bowel sounds positive. Extremities: Bilateral lower extremity edema. LABORATORY: WBC is 5.1, hemoglobin 13.4, hematocrit 39.8 with platelet count of 229,000. INR is 1.13. Chemistries: BUN 24, creatinine 0.9, BNP is 588. Echocardiogram reveals normal left ventricular systolic function as evidence of diastolic dysfunction, impaired relaxation. Chest CT: Severe emphysematous changes with bilateral upper lobe nodules. Improving from previous. IMPRESSION: 1. Dyspnea secondary to advanced chronic obstructive pulmonary disease with acute exacerbation. 2. Might be upper respiratory infection. 3. Diastolic dysfunction. 4. Arteriosclerotic heart disease status post non-ST myocardial infarction, status post stents. 5. Right upper lobe, left upper lobe pulmonary nodules, stable. PLAN: Antibiotics. Steroids, inhaled bronchodilators. Supplemental O2. Sputum for culture and sensitivity. Antibiotics. Lasix. Daily weights. Monitor electrolytes. CBC. RAJESH HEATH M.D. CLEMENT/[id number] MTDD
[2019-05-15] MEDS: ATORVASTATIN CA 40 MG TABLET (FP) PO SCH (22:28)
[2019-05-16] MEDS: methylPREDNISolone NA SUCC 40 MG/1 ML VIAL IVPUSH SCH ×4 (00:54→17:52)
[2019-05-16] MEDS: HEPARIN NA (PORCINE) 5,000 UNITS/ML 1ML VIAL SQ SCH ×3 (06:37→21:34)
[2019-05-16] MEDS: ALBUTEROL SO4 2.5/IPRATROPIUM 0.5 INH SOL 3 ML VIAL.NEB. NEB SCH ×4 (07:01→20:22)
[2019-05-16] MEDS ORDERED: PT OWN MED DRAWER 7, Y5N ONE (09:24)
[2019-05-16] MEDS ORDERED: DEXTROSE 5%-WATER - 50 ML IVPB ONE (09:25)
[2019-05-16] MEDS ORDERED: cefTRIAXone SODIUM 1 GM VIAL ONE (09:25)
[2019-05-16] MEDS: ASPIRIN COATED 81 MG TABLET.EC PO SCH (09:30)
[2019-05-16] MEDS: CEFTRIAXONE 1 GM in DEXTROSE 5%-WATER - 50 ML IVPB SCH (09:30)
[2019-05-16] MEDS: FUROSEMIDE 40 MG/4 ML INJECTABLE VIAL IVPUSH SCH (09:31)
[2019-05-16] MEDS: BUDESONIDE/FORMETEROL FUMARATE 80/4.5 mcg INHALER IH SCH ×2 (09:31→21:34)
[2019-05-16 10:25] LABS: BASO % 0.1 % (0-2.0); HEMATOCRIT 40.8 % (35.4-49); HEMOGLOBIN 13.8 GM/dL (11.7-16.9); LYMPH % 6.2 % (8-40); MCH 30.7 pg (25.7-33.7); MCHC 33.8 g/dl (32.0-35.9); MEAN CELL VOLUME 90.9 fl (80-96); MEAN PLT VOLUME 8.2 fl (7.5-11.1); MONO % 3.2 % (3.8-10.2); NEUT % 90.5 % (42.8-82.8); PLATELET COUNT 225 K/MM3 (134-434); RBC 4.48 M/mm3 (4.00-5.60); RDW 14.8 % (11.9-15.9); WHITE BLOOD COUNT 10.1 K/mm3 (4.0-10.0)
[2019-05-16] MEDS: AZITHROMYCIN IVPB 500 MG/250 ML BAG IVPB SCH (10:33)
[2019-05-16 10:44] LABS: CALCIUM 8.9 mg/dL (8.5-10.1); CREATININE 0.9 mg/dL (0.55-1.3); POTASSIUM 3.7 mmol/L (3.5-5.1)
--- NOTE | 2019-05-16 11:11 | PN ---
Progress Note (short form) - Note Progress Note: PULMONARY Breathing better today. Less cough and wheezing. Vital Signs Period Temp Pulse Resp BP Sys/Donovan Pulse Ox Last 24 Hr 97.2 F-98.2 F 62-75 18-20 102-172/52-85 97-98 Gen: tachypneic at rest Heart: RRR Lung: distant breath sounds Abd: soft, nontender Ext: no edema CBC, BMP 05/16/19 08:40 05/16/19 08:40 Active Medications Albuterol Sulfate (Ventolin 0.083% Nebulizer Soln -) 1 amp NEB RQ4H PRN PRN Reason: SHORT OF BREATH/WHEEZING Albuterol/Ipratropium (Duoneb -) 1 amp NEB RQID [facility] Last Admin: 05/16/19 07:01 Dose: 1 amp Aspirin (Ecotrin -) 81 mg PO DAILY [facility] Last Admin: 05/16/19 09:30 Dose: 81 mg Atorvastatin Calcium (Lipitor -) 40 mg PO HS [facility] Last Admin: 05/15/19 22:28 Dose: 40 mg Budesonide/Formoterol Fumarate (Symbicort 80/4.5mcg -) 2 puff IH BID [facility] Last Admin: 05/16/19 09:31 Dose: 2 puff Furosemide (Lasix Injection -) 40 mg IVPUSH DAILY [facility] Last Admin: 05/16/19 09:31 Dose: 40 mg Heparin Sodium (Porcine) (Heparin -) 5,000 unit SQ TID [facility] Last Admin: 05/16/19 06:37 Dose: 5,000 unit Azithromycin (Zithromax 500mg Ivpb (Pre-Docked)) 500 mg in 250 mls @ 250 mls/ hr IVPB DAILY [facility] Last Admin: 05/16/19 10:33 Dose: 250 mls/hr Ceftriaxone Sodium 1 gm/ (Dextrose) 50 mls @ 100 mls/hr IVPB DAILY [facility]; Protocol Last Admin: 05/16/19 09:30 Dose: 100 mls/hr Methylprednisolone Sodium Succinate (Solu-Medrol -) 60 mg IVPUSH Q6H [facility] Last Admin: 05/16/19 06:37 Dose: 60 mg A/P Acute COPD Exacerbation Chronic Hypoxic Respiratory Failure Acute Bronchitis Acute on Chronic Diastolic Heart Failure CAD Lung Nodules - continue medrol at current dose - inhaled bronchodilators - O2 to keep SpO2>90% - continue antibiotics - lasix - monitor urine output, creatinine - DVT prophylaxis
[2019-05-16] MEDS ORDERED: POTASSIUM CHLORIDE TABS 20 MEQ TABLET.ER (FP) PO ONE (11:45)
--- NOTE | 2019-05-16 11:46 | PN ---
Progress Note, Physician History of Present Illness: Patient seen and examined at bedside. Endorses occasional SOB. endorses cough productive of yellow sputum. Denies nausea vomiting fever chills chest pain. WBC count bump to 10.1 on solu-medrol. No other endorsements on complete ROS. All systems reviewed and negative except as per above. - Current Medication List Current Medications: Active Medications Albuterol Sulfate (Ventolin 0.083% Nebulizer Soln -) 1 amp NEB RQ4H PRN PRN Reason: SHORT OF BREATH/WHEEZING Albuterol/Ipratropium (Duoneb -) 1 amp NEB RQID [facility] Last Admin: 05/16/19 07:01 Dose: 1 amp Aspirin (Ecotrin -) 81 mg PO DAILY [facility] Last Admin: 05/16/19 09:30 Dose: 81 mg Atorvastatin Calcium (Lipitor -) 40 mg PO HS [facility] Last Admin: 05/15/19 22:28 Dose: 40 mg Budesonide/Formoterol Fumarate (Symbicort 80/4.5mcg -) 2 puff IH BID [facility] Last Admin: 05/16/19 09:31 Dose: 2 puff Furosemide (Lasix Injection -) 40 mg IVPUSH DAILY [facility] Last Admin: 05/16/19 09:31 Dose: 40 mg Heparin Sodium (Porcine) (Heparin -) 5,000 unit SQ TID [facility] Last Admin: 05/16/19 06:37 Dose: 5,000 unit Azithromycin (Zithromax 500mg Ivpb (Pre-Docked)) 500 mg in 250 mls @ 250 mls/ hr IVPB DAILY [facility] Last Admin: 05/16/19 10:33 Dose: 250 mls/hr Ceftriaxone Sodium 1 gm/ (Dextrose) 50 mls @ 100 mls/hr IVPB DAILY [facility]; Protocol Last Admin: 05/16/19 09:30 Dose: 100 mls/hr Methylprednisolone Sodium Succinate (Solu-Medrol -) 60 mg IVPUSH Q6H [facility] Last Admin: 05/16/19 06:37 Dose: 60 mg Potassium Chloride (K-Dur -) 40 meq PO ONCE ONE Stop: 05/16/19 11:46 - Objective Vital Signs: Vital Signs Temperature 97.4 F L 05/16/19 08:25 Pulse Rate 65 05/16/19 08:25 Respiratory Rate 20 05/16/19 08:25 Blood Pressure 118/59 L 11/23/19 08:25 O2 Sat by Pulse Oximetry (%) 97 05/16/19 09:00 Constitutional: Yes: Well Nourished, No Distress, Anxious Eyes: Yes: Conjunctiva Clear, EOM Intact HENT: Yes: Atraumatic Neck: Yes: Supple Cardiovascular: Yes: Regular Rate and Rhythm Respiratory: Yes: Diminished (on left), Other (increased BS on right. no crackles) Gastrointestinal: Yes: Soft. No: Distention, Tenderness Edema: Yes Edema: LLE: 2+, RLE: 2+ Neurological: Yes: Alert Psychiatric: Yes: Alert Labs: CBC, BMP 05/16/19 08:40 05/16/19 08:40 INR, PTT INR 1.13 (0.83-1.09) H 05/14/19 15:40 - ....Imaging Chest X-ray: Report Reviewed Cat Scan: Report Reviewed Impression/Plan Impression/Plan: 88M PMH CAD s/p stent 2016, COPD on home O2 2L NC, HTN, HLD, anxiety presents with acute respiratory failure secondary to COPD exacerbation. Acute respiratory failure secondary to acute COPD exacerbation Pulm consult noted and appreciated continue duonebs, ventolin nebs, NC 02 continue solu-medrol 60mg IVP q6h continue symbicort Continue ABx which will help inflammation in COPD exacerbation doubt pneumonia as CT chest does not show evidence, no WBC count elevation and afebrile BCx pending Sputum Cx pending urinary antigens pending CAD s/p stent 2016 continue ASA Continue lipitor f/u cardiology Lung nodule- stable f/u pulm consult acute on chronic diastolic CHF continue lasix IV f/u cardiology monitor electrolytes and renal fxn I/Os daily weights HTN controlled off meds HLD Statin PPX DVT: hep subcu 5000 units TID GI: not indicated Sodium controlled diet Visit type - Emergency Visit Emergency Visit: Yes ED Registration Date: 05/14/19 Care time: The patient presented to the Emergency Department on the above date and was hospitalized for further evaluation of their emergent condition. - New Patient This patient is new to me today: Yes Date on this admission: 05/16/19 - Critical Care Critical Care patient: No
--- NOTE | 2019-05-16 13:56 | PN ---
Progress Note (short form) - Note Progress Note: s: sob improving. no chest pain, palps, dizziness, dyspnea Vital Signs Period Temp Pulse Resp BP Sys/Donovan Pulse Ox Last 24 Hr 97.2 F-98.1 F 62-75 18-20 102-120/52-65 97-98 Constitutional: Yes: No Distress, Calm Eyes: Yes: Conjunctiva Clear Respiratory: Yes: Other (decreased breath sounds bilaterally) Gastrointestinal: Yes: Soft Cardiovascular: Yes: Regular Rate and Rhythm JVD: No Carotid Bruit: No Heart Sounds: Yes: S1, S2 Edema: Yes Edema: LLE: 1+, RLE: 1+ Neurological: Yes: Alert, Oriented NSR 71bpm, LAD, old septal CO, APC echo 04/2019 tds, nl LV/RV, E/A reversal, mild TR Imaging - Results Cat Scan: Report Reviewed EKG: Image Reviewed Assessment/Plan IMP: COPD on home O2 w/ acute exacerbation Lung masses, chronic Probable acute on chronic diastolic CHF, mild exacerbation CAD s/p PCI REC: 1. Abx, steroids and further w/u lung masses as per Pulm (chronic) 2. Cont Lasix 40mg IV daily with close monitoring of weight and lytes 3. Cont home meds for his stable CAD. 4. repeat echo nl LV function
--- NOTE | 2019-05-16 18:03 | EKG ---
Test Reason : Blood Pressure : / mmHG Vent. 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
[2019-05-16] MEDS: ATORVASTATIN CA 40 MG TABLET (FP) PO SCH (21:34)
[2019-05-17] MEDS: methylPREDNISolone NA SUCC 40 MG/1 ML VIAL IVPUSH SCH ×4 (00:27→17:14)
[2019-05-17] MEDS: HEPARIN NA (PORCINE) 5,000 UNITS/ML 1ML VIAL SQ SCH ×3 (06:25→21:49)
[2019-05-17] MEDS: ALBUTEROL SO4 2.5/IPRATROPIUM 0.5 INH SOL 3 ML VIAL.NEB. NEB SCH ×4 (08:05→20:50)
[2019-05-17] MEDS ORDERED: cefTRIAXone SODIUM 1 GM VIAL ONE (08:45)
[2019-05-17] MEDS ORDERED: DEXTROSE 5%-WATER - 50 ML IVPB ONE (08:45)
[2019-05-17 09:28] LABS: HEMATOCRIT 40.3 % (35.4-49); HEMOGLOBIN 13.5 GM/dL (11.7-16.9); LYMPH % 5.1 % (8-40); MCH 30.5 pg (25.7-33.7); MCHC 33.4 g/dl (32.0-35.9); MEAN CELL VOLUME 91.3 fl (80-96); MEAN PLT VOLUME 8.2 fl (7.5-11.1); MONO % 3.1 % (3.8-10.2); NEUT % 91.8 % (42.8-82.8); PLATELET COUNT 236 K/MM3 (134-434); RBC 4.41 M/mm3 (4.00-5.60); RDW 14.6 % (11.9-15.9); WHITE BLOOD COUNT 11.2 K/mm3 (4.0-10.0)
[2019-05-17 09:52] LABS: BLOOD UREA NITROGEN 40.7 mg/dL (7-18); CALCIUM 8.8 mg/dL (8.5-10.1); CREATININE 0.9 mg/dL (0.55-1.3); MAGNESIUM 2.5 mg/dL (1.8-2.4); POTASSIUM 4.3 mmol/L (3.5-5.1)
[2019-05-17] MEDS: AZITHROMYCIN IVPB 500 MG/250 ML BAG IVPB SCH (10:25)
[2019-05-17] MEDS: CEFTRIAXONE 1 GM in DEXTROSE 5%-WATER - 50 ML IVPB SCH (10:25)
[2019-05-17] MEDS: FUROSEMIDE 40 MG/4 ML INJECTABLE VIAL IVPUSH SCH (10:25)
[2019-05-17] MEDS: ASPIRIN COATED 81 MG TABLET.EC PO SCH (10:26)
[2019-05-17] MEDS: BUDESONIDE/FORMETEROL FUMARATE 80/4.5 mcg INHALER IH SCH ×2 (10:26→21:49)
[2019-05-17 10:39] LABS: PLATELET ESTIMATE NORMAL
--- NOTE | 2019-05-17 11:57 | PN ---
Progress Note (short form) - Note Progress Note: PULMONARY Breathing better today. Less cough and wheezing. Vital Signs Period Temp Pulse Resp BP Sys/Donovan Pulse Ox Last 24 Hr 97.3 F-98.9 F 68-83 18-20 110-153/52-72 97 Gen: less tachypneic at rest Heart: RRR Lung: distant breath sounds Abd: soft, nontender Ext: no edema CBC, BMP 05/17/19 08:05 05/17/19 08:05 Active Medications Albuterol Sulfate (Ventolin 0.083% Nebulizer Soln -) 1 amp NEB RQ4H PRN PRN Reason: SHORT OF BREATH/WHEEZING Albuterol/Ipratropium (Duoneb -) 1 amp NEB RQID [facility] Last Admin: 05/17/19 08:05 Dose: 1 amp Aspirin (Ecotrin -) 81 mg PO DAILY [facility] Last Admin: 05/17/19 10:26 Dose: 81 mg Atorvastatin Calcium (Lipitor -) 40 mg PO HS [facility] Last Admin: 05/16/19 21:34 Dose: 40 mg Budesonide/Formoterol Fumarate (Symbicort 80/4.5mcg -) 2 puff IH BID [facility] Last Admin: 05/17/19 10:26 Dose: 2 puff Furosemide (Lasix Injection -) 40 mg IVPUSH DAILY [facility] Last Admin: 05/17/19 10:25 Dose: 40 mg Heparin Sodium (Porcine) (Heparin -) 5,000 unit SQ TID [facility] Last Admin: 05/17/19 06:25 Dose: 5,000 unit Azithromycin (Zithromax 500mg Ivpb (Pre-Docked)) 500 mg in 250 mls @ 250 mls/ hr IVPB DAILY [facility] Last Admin: 05/17/19 10:25 Dose: 250 mls/hr Ceftriaxone Sodium 1 gm/ (Dextrose) 50 mls @ 100 mls/hr IVPB DAILY [facility]; Protocol Last Admin: 05/17/19 10:25 Dose: 100 mls/hr Methylprednisolone Sodium Succinate (Solu-Medrol -) 60 mg IVPUSH Q6H [facility] Last Admin: 05/17/19 06:24 Dose: 60 mg A/P Acute COPD Exacerbation Chronic Hypoxic Respiratory Failure Acute Bronchitis Acute on Chronic Diastolic Heart Failure CAD Lung Nodules - will decrease medrol to 40mg q8h - inhaled bronchodilators - O2 to keep SpO2>90% - continue antibiotics - lasix - monitor urine output, creatinine - DVT prophylaxis
--- NOTE | 2019-05-17 12:15 | PN ---
Progress Note (short form) - Note Progress Note: s: dyspnea improving. no chest pain, palps, dizziness Vital Signs Period Temp Pulse Resp BP Sys/Donovan Pulse Ox Last 24 Hr 97.3 F-98.9 F 68-83 18-20 110-153/52-72 97 Constitutional: Yes: No Distress, Calm Eyes: Yes: Conjunctiva Clear Respiratory: Yes: Other (decreased breath sounds bilaterally) Gastrointestinal: Yes: Soft Cardiovascular: Yes: Regular Rate and Rhythm JVD: No Carotid Bruit: No Heart Sounds: Yes: S1, S2 Edema: Yes Edema: LLE: 1+, RLE: 1+ Neurological: Yes: Alert, Oriented NSR 71bpm, LAD, old septal [place], APC echo 04/2019 tds, nl LV/RV, E/A reversal, mild TR Imaging - Results Cat Scan: Report Reviewed EKG: Image Reviewed Assessment/Plan IMP: COPD on home O2 w/ acute exacerbation Lung masses, chronic Probable acute on chronic diastolic CHF, mild exacerbation CAD s/p PCI REC: 1. Abx, steroids and further w/u lung masses as per Pulm (chronic) 2. Cont Lasix 40mg IV daily with close monitoring of weight and lytes - bed weight increasing however edema and sob improving. will ask RN to check standing weights 3. Cont home meds for his stable CAD. 4. repeat echo nl LV function
--- NOTE | 2019-05-17 13:39 | PN ---
Progress Note, Physician History of Present Illness: Patient seen and examined at bedside with present. all questions answered and concerns addressed. Endorses improvement of SOB. endorses cough productive of yellow sputum. Denies nausea vomiting fever chills chest pain. Leukocytosis secondary to solu-medrol. Endorses shaking from steroids which was worse last night. states it happened before with steroids. He feels much better overall today. No other endorsements on complete ROS. All systems reviewed and negative except as per above. - Current Medication List Current Medications: Active Medications Albuterol Sulfate (Ventolin 0.083% Nebulizer Soln -) 1 amp NEB RQ4H PRN PRN Reason: SHORT OF BREATH/WHEEZING Albuterol/Ipratropium (Duoneb -) 1 amp NEB RQID [facility] Last Admin: 05/17/19 11:45 Dose: 1 amp Aspirin (Ecotrin -) 81 mg PO DAILY [facility] Last Admin: 05/17/19 10:26 Dose: 81 mg Atorvastatin Calcium (Lipitor -) 40 mg PO HS [facility] Last Admin: 05/16/19 21:34 Dose: 40 mg Budesonide/Formoterol Fumarate (Symbicort 80/4.5mcg -) 2 puff IH BID [facility] Last Admin: 05/17/19 10:26 Dose: 2 puff Furosemide (Lasix Injection -) 40 mg IVPUSH DAILY [facility] Last Admin: 05/17/19 10:25 Dose: 40 mg Heparin Sodium (Porcine) (Heparin -) 5,000 unit SQ TID [facility] Last Admin: 05/17/19 06:25 Dose: 5,000 unit Azithromycin (Zithromax 500mg Ivpb (Pre-Docked)) 500 mg in 250 mls @ 250 mls/ hr IVPB DAILY [facility] Last Admin: 05/17/19 10:25 Dose: 250 mls/hr Ceftriaxone Sodium 1 gm/ (Dextrose) 50 mls @ 100 mls/hr IVPB DAILY [facility]; Protocol Last Admin: 05/17/19 10:25 Dose: 100 mls/hr Methylprednisolone Sodium Succinate (Solu-Medrol -) 40 mg IVPUSH Q8H [facility] - Objective Vital Signs: Vital Signs Temperature 98.9 F 05/17/19 10:00 Pulse Rate 81 05/17/19 10:00 Respiratory Rate 18 05/17/19 10:00 Blood Pressure 135/63 05/17/19 10:00 O2 Sat by Pulse Oximetry (%) 97 05/16/19 21:00 Constitutional: Yes: Well Nourished, No Distress, tremulous Eyes: Yes: Conjunctiva Clear, EOM Intact HENT: Yes: Atraumatic Neck: Yes: Supple Cardiovascular: Yes: Regular Rate and Rhythm Respiratory: Yes: Diminished bilaterally which basilar crackles which have improved Gastrointestinal: Yes: Soft. No: Distention, Tenderness Edema: Yes Edema: LLE: 2+, RLE: 2+ slightly improved Neurological: Yes: Alert Psychiatric: Yes: Alert Labs: CBC, BMP 05/17/19 08:05 05/17/19 08:05 INR, PTT INR 1.13 (0.83-1.09) H 05/14/19 15:40 Impression/Plan Impression/Plan: 88M PMH CAD s/p stent 2016, COPD on home O2 2L NC, HTN, HLD, anxiety presents with acute respiratory failure secondary to COPD exacerbation. Acute respiratory failure secondary to acute COPD exacerbation Pulm consult noted and appreciated continue duonedarren ventjeevan estrella, NC 02 decrease dose and frequency of solu-medrol to 40mg IVP q8h Per pulmonary continue symbicort Continue ABx which will help inflammation in COPD exacerbation doubt pneumonia as CT chest does not show evidence and afebrile Leukocytosis likely from medrol BCx pending but no growth so far Sputum Cx non-lactose fermenting gram negative bacilli urinary antigens negative CAD s/p stent 2016 continue ASA Continue lipitor f/u cardiology Lung nodule- stable f/u pulm consult acute on chronic diastolic CHF continue lasix IV f/u cardiology monitor electrolytes and renal fxn I/Os daily weights-do standing scale HTN controlled off meds HLD Statin PPX DVT: hep subcu 5000 units TID GI: not indicated Sodium controlled diet Visit type - Emergency Visit Emergency Visit: Yes ED Registration Date: 05/14/19 Care time: The patient presented to the Emergency Department on the above date and was hospitalized for further evaluation of their emergent condition. - New Patient This patient is new to me today: No - Critical Care Critical Care patient: No
--- NOTE | 2019-05-17 13:42 | EKG ---
Test Reason : Blood Pressure : / mmHG Vent. Rate : 064 BPM Atrial Rate : 064 BPM P-R Int : 172 ms QRS Dur : 084 ms QT Int : 452 ms P-R-T Axes : 038 -30 046 degrees QTc Int : 466 ms SINUS RHYTHM WITH PREMATURE SUPRAVENTRICULAR COMPLEXES AND WITH OCCASIONAL PREMATURE VENTRICULAR COMPLEXES LEFT AXIS DEVIATION ANTEROSEPTAL INFARCT (CITED ON OR BEFORE 14-MAY-2019) ABNORMAL ECG WHEN COMPARED WITH ECG OF 14-MAY-2019 15:04, PREMATURE VENTRICULAR COMPLEXES ARE NOW PRESENT Confirmed by MD Shanthi, Alexandro ([id number]) on 05/17/2019 1:41:58 PM Referred By: Confirmed By:Alexandro Maki MD
[2019-05-17] MEDS: ESCITALOPRAM OXALATE 10 MG TABLET (FP) PO SCH (15:44)
[2019-05-17] MEDS: ATORVASTATIN CA 40 MG TABLET (FP) PO SCH (21:49)
[2019-05-18] MEDS: methylPREDNISolone NA SUCC 40 MG/1 ML VIAL IVPUSH SCH ×3 (01:01→18:01)
[2019-05-18] MEDS: HEPARIN NA (PORCINE) 5,000 UNITS/ML 1ML VIAL SQ SCH ×3 (06:11→21:53)
[2019-05-18] MEDS: ALBUTEROL SO4 2.5/IPRATROPIUM 0.5 INH SOL 3 ML VIAL.NEB. NEB SCH ×4 (07:30→20:12)
[2019-05-18 08:28] LABS: BASO % 0.2 % (0-2.0); HEMATOCRIT 40.9 % (35.4-49); HEMOGLOBIN 13.9 GM/dL (11.7-16.9); LYMPH % 7.2 % (8-40); MCH 30.7 pg (25.7-33.7); MEAN CELL VOLUME 90.1 fl (80-96); MEAN PLT VOLUME 7.9 fl (7.5-11.1); NEUT % 88.6 % (42.8-82.8); PLATELET COUNT 225 K/MM3 (134-434); RBC 4.54 M/mm3 (4.00-5.60); RDW 14.8 % (11.9-15.9); WHITE BLOOD COUNT 8.5 K/mm3 (4.0-10.0)
[2019-05-18 09:01] LABS: BLOOD UREA NITROGEN 42.6 mg/dL (7-18); CALCIUM 9.2 mg/dL (8.5-10.1); CREATININE 0.9 mg/dL (0.55-1.3); POTASSIUM 4.1 mmol/L (3.5-5.1)
--- NOTE | 2019-05-18 09:31 | PN ---
Progress Note (short form) - Note Progress Note: Breathing feels a little better today. Less cough and wheezing. Intake & Output 05/15/19 05/16/19 05/17/19 05/18/19 23:59 23:59 23:59 23:59 Intake Total 1650 1150 1200 Output Total 200 2030 1300 Balance 1450 -880 -100 Weight 166 lb 165 lb 165 lb 1 oz Last Vital Signs Temp Pulse Resp BP Pulse Ox 98.0 F 80 16 126/68 97 05/18/19 09:02 05/18/19 09:02 05/18/19 09:02 05/18/19 09:02 05/16/19 21:00 Active Medications Albuterol Sulfate (Ventolin 0.083% Nebulizer Soln -) 1 amp NEB RQ4H PRN PRN Reason: SHORT OF BREATH/WHEEZING Albuterol/Ipratropium (Duoneb -) 1 amp NEB RQID [facility] Last Admin: 05/18/19 07:30 Dose: 1 amp Aspirin (Ecotrin -) 81 mg PO DAILY [facility] Last Admin: 05/17/19 10:26 Dose: 81 mg Atorvastatin Calcium (Lipitor -) 40 mg PO HS [facility] Last Admin: 05/17/19 21:49 Dose: 40 mg Budesonide/Formoterol Fumarate (Symbicort 80/4.5mcg -) 2 puff IH BID [facility] Last Admin: 05/17/19 21:49 Dose: 2 puff Escitalopram Oxalate (Lexapro -) 10 mg PO DAILY [facility] Last Admin: 05/17/19 15:44 Dose: 10 mg Furosemide (Lasix Injection -) 40 mg IVPUSH DAILY [facility] Last Admin: 05/17/19 10:25 Dose: 40 mg Heparin Sodium (Porcine) (Heparin -) 5,000 unit SQ TID [facility] Last Admin: 05/18/19 06:11 Dose: 5,000 unit Methylprednisolone Sodium Succinate (Solu-Medrol -) 40 mg IVPUSH Q8H-IV [facility] Last Admin: 05/18/19 01:01 Dose: 40 mg Gen: Awake and alert, less tachypneic at rest Heart: RRR Lung: distant breath sounds, few scattered rhonchi, no wheeze Abd: soft, nontender Ext: no edema Laboratory Results - last 24 hr 05/17/19 05/17/19 05/18/19 08:05 08:05 07:55 WBC 11.2 H 8.5 RBC 4.41 4.54 Hgb 13.5 13.9 Hct 40.3 40.9 MCV 91.3 90.1 MCH 30.5 30.7 MCHC 33.4 34.0 RDW 14.6 14.8 Plt Count 236 225 MPV 8.2 7.9 Absolute Neuts (auto) 10.2 H 7.5 Neutrophils % 91.8 H 88.6 H Neutrophils % (Manual) 95.0 H Band Neutrophils % 0.0 Lymphocytes % 5.1 L 7.2 L D Lymphocytes % (Manual) 2.0 L D Monocytes % 3.1 L 4.0 Monocytes % (Manual) 2 L D Eosinophils % 0.0 0.0 Eosinophils % (Manual) 0.0 Basophils % 0.0 0.2 D Basophils % (Manual) 0.0 Myelocytes % (Man) 0 Promyelocytes % (Man) 0 Blast Cells % (Manual) 0 Nucleated RBC % 0 0 Metamyelocytes 0 Platelet Estimate Normal Sodium 139 Potassium 4.3 Chloride 104 Carbon Dioxide 30 Anion Gap 5 L BUN 40.7 H Creatinine 0.9 Est GFR (CKD-EPI)AfAm 89.32 Est GFR (CKD-EPI)NonAf 77.06 Random Glucose 123 H Calcium 8.8 Magnesium 2.5 H 05/18/19 07:55 WBC RBC Hgb Hct MCV MCH MCHC RDW Plt Count MPV Absolute Neuts (auto) Neutrophils % Neutrophils % (Manual) Band Neutrophils % Lymphocytes % Lymphocytes % (Manual) Monocytes % Monocytes % (Manual) Eosinophils % Eosinophils % (Manual) Basophils % Basophils % (Manual) Myelocytes % (Man) Promyelocytes % (Man) Blast Cells % (Manual) Nucleated RBC % Metamyelocytes Platelet Estimate Sodium 140 Potassium 4.1 Chloride 103 Carbon Dioxide 30 Anion Gap 7 L BUN 42.6 H Creatinine 0.9 Est GFR (CKD-EPI)AfAm 89.32 Est GFR (CKD-EPI)NonAf 77.06 Random Glucose 120 H Calcium 9.2 Magnesium A/P Acute COPD Exacerbation Chronic Hypoxic Respiratory Failure Acute Bronchitis Acute on Chronic Diastolic Heart Failure CAD Lung Nodules - IV Medrol, if stable/improved can likely change to Medrol in the AM - inhaled bronchodilators - O2 to keep SpO2>90% - continue antibiotics - lasix - monitor urine output, creatinine - DVT prophylaxis Dr Hudson
--- NOTE | 2019-05-18 09:54 | PN ---
Progress Note (short form) - Note Progress Note: Hospitalist Medicine Feels breathing has improved. on 3L NC 02 this AM, sat well. No other complaints. Vitals 05/18/19 09:02 Temperature 98.0 F Pulse Rate 80 Respiratory 16 Rate Blood Pressure 126/68 Physical Exam general: resting, on 3L NC 02. pleasant, sitting up HEENT: NCAT, PERRLA neck: supple cardio: S1, S2 RRR. no r/m/g pulm: +decreased breath sounds b/l abdomen: soft, nontender, nondistended LE: 1+ pitting edema b/l. pulses intact . +ecchymoses on shins b/l. 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 gait not assessed Laboratory Tests 05/18/19 05/18/19 07:55 07:55 WBC 8.5 Hgb 13.9 Hct 40.9 Plt Count 225 Sodium 140 Potassium 4.1 Chloride 103 BUN 42.6 H Creatinine 0.9 Random Glucose 120 H Microbiology 05/16/19 06:45 Sputum - Expectorated Gram Stain - Final 05/15/19 17:20 Urine For Antigen Detection Legionella Antigen - Final 05/15/19 17:20 Urine For Antigen Detection Streptococcus pneumoniae Antigen (M - Final 05/14/19 15:40 Urine - Urine Clean Catch Urine Culture - Final NO GROWTH OBTAINED 05/16/19 06:45 Sputum - Expectorated Sputum Culture - Preliminary Pseudomonas Aeruginosa 05/14/19 15:40 Blood - Peripheral Venous Blood Culture - Preliminary NO GROWTH OBTAINED AFTER 72 HOURS, INCUBATION TO CONTINUE FOR 2 DAYS. 05/14/19 15:40 Blood - Peripheral Venous Blood Culture - Preliminary NO GROWTH OBTAINED AFTER 72 HOURS, INCUBATION TO CONTINUE FOR 2 DAYS. Imaging 05/15: Chest CT: +bullous emphysematous changes b/l. spiculated nodule in RUL measuring 1.6cm Also a 11mm, similar spiculated nodule in RO. Nodules have been identified previously, and have decreased in size since 2015. also a 7mm nodule at LLL. mediastinal and b/l axillary LNs. large R parapelvic cyst. 05/18 CXR: since 05/14, increased lung markings have diminished. there is some scarring in L upper lobe. there is a scoliosis with convexity to the left. 05/15: ECHO: EF 50-55%, regional wall motion abnormalities can't be ruled out d/ t limited visualization. RVSF grossly normal. mild to mod mitral annular calcification, mild TR, insufficient TR to calculate RVSP, mild to mod aortic sclerosis, no pericardial effusion. EKG: L axis deviation, qtc 483ms Assessment/Plan 88 y/o male PMH CAD (s/p stent 2016), COPD (home o2; 2L) HTN, HLD, anxiety c/o SOB for 2 days. Admitted for COPD exacerbation. #Acute COPD exacerbation -c/w duonebs, ventolin nebs, NC 02 -c/w medrol 40mg IVP qd. if cont to improves, will switch to PO tomorrow -cx are (-) however sputum (+) pseudomonas without white count, afebrile will not start abx at this time -will need pre+post before d/c -goal sat 88-92% -Pulm consulted: Dr. Smallwood #CAD s/p stent 2017 -c/w asa, lipitor #RUL, RO nodules - stable -c/t monitor -have improved in size from previous #Mild acute on chronic diastolic CHF -lasix increased to 40mg IVP BID, per cardio rec -follow wts, i/o, lytes, na control 2g -repeat ECHO nl EF -c/w asa -Cardio: Dr. Orr -off tele monitoring per cardio #HTN- controlled #HLD -c/w statin #F/E/N avoid IVF as CHF exac c/t follow lytes na controlled diet #PPX DVT: hep 5k sq tid #Dispo cont'd monitoring on med-surg if improves, for PO pred tomorrow pre and post prior to d/c will d/w cardio - when to switch to PO lasix <Molly Ackerman - Last Filed: 05/18/19 18:38> - Note Progress Note: Seen and examined; please see resident note for further information. Agree with above as documented aside from as supplemented by myself. Personally verified all barrios historical details, PE findings, as well as all labs, imaging, and diagnostics. Discussed at length with resident and indicated consultants. No further subjective findings; continues on IV diuresis and will be changing to PO steroids. Symptoms improved but notes continued SOB and LE pitting edema. No cough or chest pain. 10 sys ROS done and negative aside from HPI NAD, AAO, resting in bed NC AT EOMI PERRLA HR wnl, s1/2+ Lungs w/ sym crackles, w/ sym exp NT ND +BS CN2-12 wnl, no fnd Normal mood, appropriate behavior, average insight Trachea midline, improved JVD compared to prior encounters. Microbiology reviewed; Bcx negative with Sputum Cx Echo 05/12: nl LV/RV. nl valve fxn, no RVSP A/P: Seen on floor; continues to improve with respect to his acute on chronic respiratory failure 2/2 COPD and CHF exacerbation. Changing to PO steroids and will continue on IV diuresis per CV. Monitor Is and Os, QD weights, elytes ( optimize K and Mg). Wean from O2 as tolerated to home levels. Baseline known lung nodules. Acute on chronic respiratory failure, on 3-4L O2 (baseline 2L ATC) COPD Exacerbation Diastolic CHF exacerbation Leukocytosis likely from medrol, improved CAD s/p stent 2016 (Asx; continue home asa and statin and FU further CV recs) Lung nodule (Stable; follows with Dr. Smallwood OP) Hx Controlled HTN Hx HLD (Continue with home statin, OP FLP FU) DVT ppx reviewed; c/w hep <Wellington Miramontes - Last Filed: 05/20/19 12:31>
[2019-05-18] MEDS: ASPIRIN COATED 81 MG TABLET.EC PO SCH (10:39)
[2019-05-18] MEDS: FUROSEMIDE 40 MG/4 ML INJECTABLE VIAL IVPUSH SCH ×2 (10:39→14:07)
[2019-05-18] MEDS: ESCITALOPRAM OXALATE 10 MG TABLET (FP) PO SCH (10:39)
[2019-05-18] MEDS: BUDESONIDE/FORMETEROL FUMARATE 80/4.5 mcg INHALER IH SCH ×2 (10:40→21:52)
--- NOTE | 2019-05-18 11:55 | PN ---
Progress Note, Physician Chief Complaint: sob History of Present Illness: still sob leg swelling not improving, despite vigorous diuresis to lasix IV no cp no palp, syncope - Current Medication List Current Medications: Active Medications Albuterol Sulfate (Ventolin 0.083% Nebulizer Soln -) 1 amp NEB RQ4H PRN PRN Reason: SHORT OF BREATH/WHEEZING Albuterol/Ipratropium (Duoneb -) 1 amp NEB RQID [facility] Last Admin: 05/18/19 11:39 Dose: 1 amp Aspirin (Ecotrin -) 81 mg PO DAILY [facility] Last Admin: 05/18/19 10:39 Dose: 81 mg Atorvastatin Calcium (Lipitor -) 40 mg PO HS [facility] Last Admin: 05/17/19 21:49 Dose: 40 mg Budesonide/Formoterol Fumarate (Symbicort 80/4.5mcg -) 2 puff IH BID [facility] Last Admin: 05/18/19 10:40 Dose: 2 puff Escitalopram Oxalate (Lexapro -) 10 mg PO DAILY [facility] Last Admin: 05/18/19 10:39 Dose: 10 mg Furosemide (Lasix Injection -) 40 mg IVPUSH DAILY [facility] Last Admin: 05/18/19 10:39 Dose: 40 mg Heparin Sodium (Porcine) (Heparin -) 5,000 unit SQ TID [facility] Last Admin: 05/18/19 06:11 Dose: 5,000 unit Methylprednisolone Sodium Succinate (Solu-Medrol -) 40 mg IVPUSH Q8H-IV [facility] Last Admin: 05/18/19 10:39 Dose: 40 mg - Objective Vital Signs: Vital Signs Temperature 98.0 F 05/18/19 09:02 Pulse Rate 80 05/18/19 09:02 Respiratory Rate 16 05/18/19 09:02 Blood Pressure 126/68 05/18/19 09:02 O2 Sat by Pulse Oximetry (%) 97 05/16/19 21:00 Constitutional: Yes: Well Nourished, No Distress, Calm Cardiovascular: Yes: Regular Rate and Rhythm (decr intensity sounds (copd), obscured by rhonchi), S1, S2. No: Gallop, Murmur Respiratory: Yes: Regular, Rhonchi. No: Accessory Muscle Use, Wheezes Extremities: No: Cold Edema: Yes (2+ pretib) Neurological: Yes: Alert, Oriented Psychiatric: No: Agitated Labs: CBC, BMP 05/18/19 07:55 05/18/19 07:55 INR, PTT INR 1.13 (0.83-1.09) H 05/14/19 15:40 Assessment/Plan Echo 05/12: nl LV/RV. nl valve fxn, no RVSP IMP: COPD on home O2 w/ acute exacerbation Lung masses, chronic Venous insufficiency/edema, chronic Probable acute on chronic diastolic CHF, mild exacerbation CAD s/p PCI REC: 1. Abx, steroids and further w/u lung masses as per Pulm (chronic) 2. incr lasix 40 iv bid, add ANGELINE stockings for edema 3. Cont home meds for his stable CAD.
[2019-05-18] MEDS: ATORVASTATIN CA 40 MG TABLET (FP) PO SCH (21:52)
[2019-05-19] MEDS: methylPREDNISolone NA SUCC 40 MG/1 ML VIAL IVPUSH SCH (02:16)
[2019-05-19] MEDS: HEPARIN NA (PORCINE) 5,000 UNITS/ML 1ML VIAL SQ SCH ×3 (05:52→21:39)
[2019-05-19] MEDS: FUROSEMIDE 40 MG/4 ML INJECTABLE VIAL IVPUSH SCH ×2 (05:52→13:33)
[2019-05-19] MEDS: ALBUTEROL SO4 2.5/IPRATROPIUM 0.5 INH SOL 3 ML VIAL.NEB. NEB SCH ×4 (07:45→20:10)
[2019-05-19 09:01] LABS: BASO % 0.2 % (0-2.0); HEMATOCRIT 44.5 % (35.4-49); LYMPH % 6.9 % (8-40); MCH 30.6 pg (25.7-33.7); MCHC 33.7 g/dl (32.0-35.9); MEAN CELL VOLUME 90.9 fl (80-96); MEAN PLT VOLUME 7.9 fl (7.5-11.1); MONO % 5.4 % (3.8-10.2); NEUT % 87.5 % (42.8-82.8); PLATELET COUNT 266 K/MM3 (134-434); RDW 14.7 % (11.9-15.9); WHITE BLOOD COUNT 10.2 K/mm3 (4.0-10.0)
[2019-05-19 09:32] LABS: BLOOD UREA NITROGEN 48.7 mg/dL (7-18); CALCIUM 9.2 mg/dL (8.5-10.1); CREATININE 1.1 mg/dL (0.55-1.3); MAGNESIUM 2.4 mg/dL (1.8-2.4); PHOSPHOROUS 4.6 mg/dL (2.5-4.9); POTASSIUM 4.2 mmol/L (3.5-5.1)
--- NOTE | 2019-05-19 09:43 | PN ---
Progress Note (short form) - Note Progress Note: Breathing continues to feel better. Less cough and no wheezing. SHANNON is improving. No acute events overnight. Intake & Output 05/16/19 05/17/19 05/18/19 05/19/19 23:59 23:59 23:59 23:59 Intake Total 1150 1200 450 0 Output Total 2030 1300 360 200 Balance -880 -100 90 -200 Weight 165 lb 165 lb 1 oz Last Vital Signs Temp Pulse Resp BP Pulse Ox 97.7 F 65 18 110/60 93 L 05/19/19 09:00 05/19/19 09:00 05/19/19 09:00 05/19/19 09:00 05/18/19 21:00 Active Medications Albuterol Sulfate (Ventolin 0.083% Nebulizer Soln -) 1 amp NEB RQ4H PRN PRN Reason: SHORT OF BREATH/WHEEZING Albuterol/Ipratropium (Duoneb -) 1 amp NEB RQID [facility] Last Admin: 05/18/19 20:12 Dose: 1 amp Aspirin (Ecotrin -) 81 mg PO DAILY [facility] Last Admin: 05/18/19 10:39 Dose: 81 mg Atorvastatin Calcium (Lipitor -) 40 mg PO HS [facility] Last Admin: 05/18/19 21:52 Dose: 40 mg Budesonide/Formoterol Fumarate (Symbicort 80/4.5mcg -) 2 puff IH BID [facility] Last Admin: 05/18/19 21:52 Dose: 2 puff Escitalopram Oxalate (Lexapro -) 10 mg PO DAILY [facility] Last Admin: 05/18/19 10:39 Dose: 10 mg Furosemide (Lasix Injection -) 40 mg IVPUSH BIDLASIX [facility] Last Admin: 05/19/19 05:52 Dose: 40 mg Heparin Sodium (Porcine) (Heparin -) 5,000 unit SQ TID [facility] Last Admin: 05/19/19 05:52 Dose: 5,000 unit Methylprednisolone Sodium Succinate (Solu-Medrol -) 40 mg IVPUSH Q8H-IV [facility] Last Admin: 05/19/19 02:16 Dose: 40 mg Gen: Awake and alert, NAD Heart: RRR Lung: distant breath sounds, few scattered rhonchi, no wheeze Abd: soft, nontender Ext: no edema Laboratory Results - last 24 hr 05/19/19 05/19/19 08:15 08:15 WBC 10.2 H RBC 4.90 Hgb 15.0 Hct 44.5 MCV 90.9 MCH 30.6 MCHC 33.7 RDW 14.7 Plt Count 266 MPV 7.9 Absolute Neuts (auto) 8.9 H Neutrophils % 87.5 H Lymphocytes % 6.9 L Monocytes % 5.4 Eosinophils % 0.0 Basophils % 0.2 Nucleated RBC % 0 Sodium 139 Potassium 4.2 Chloride 100 Carbon Dioxide 32 Anion Gap 7 L BUN 48.7 H Creatinine 1.1 Est GFR (CKD-EPI)AfAm 70.08 Est GFR (CKD-EPI)NonAf 60.46 Random Glucose 115 H Calcium 9.2 Phosphorus 4.6 Magnesium 2.4 A/P Acute COPD Exacerbation Chronic Hypoxic Respiratory Failure Acute Bronchitis Acute on Chronic Diastolic Heart Failure CAD Lung Nodules - Change IV Medrol to Prednisone (Can do 5 days of 40mg) - inhaled bronchodilators - O2 to keep SpO2>90% - continue antibiotics - Lasix - monitor urine output, creatinine - DVT prophylaxis - DC planning (patient has home O2) Dr Hudson
[2019-05-19] MEDS: BUDESONIDE/FORMETEROL FUMARATE 80/4.5 mcg INHALER IH SCH ×2 (09:54→21:40)
[2019-05-19] MEDS: ESCITALOPRAM OXALATE 10 MG TABLET (FP) PO SCH (09:55)
[2019-05-19] MEDS: ASPIRIN COATED 81 MG TABLET.EC PO SCH (09:55)
[2019-05-19] MEDS: predniSONE 20 MG TABLET (UD) PO SCH (10:05)
--- NOTE | 2019-05-19 10:11 | PN ---
Progress Note (short form) - Note Progress Note: Hospitalist Medicine Slept well last night, in good spirits. Breathing has improved Vitals 05/19/19 09:00 Temperature 97.7 F Pulse Rate 65 Respiratory 18 Rate Blood Pressure 110/60 Physical Exam general: resting, on 3L NC 02. pleasant, waking up HEENT: NCAT, PERRLA neck: supple cardio: S1, S2 RRR. no r/m/g pulm: +decreased breath sounds b/l. no accessory m. usage abdomen: soft, nontender, nondistended LE: trace pitting edema b/l. pulses intact . +ecchymoses on shins b/l- stable. neuro: fuel cell binder 2-12 grossly intact. gait not assessed Laboratory Tests 05/19/19 05/19/19 08:15 08:15 WBC 10.2 H Hgb 15.0 Hct 44.5 Plt Count 266 Sodium 139 Potassium 4.2 Chloride 100 BUN 48.7 H Creatinine 1.1 Random Glucose 115 H Microbiology 05/16/19 06:45 Sputum - Expectorated Gram Stain - Final 05/15/19 17:20 Urine For Antigen Detection Legionella Antigen - Final 05/15/19 17:20 Urine For Antigen Detection Streptococcus pneumoniae Antigen (M - Final 05/14/19 15:40 Urine - Urine Clean Catch Urine Culture - Final NO GROWTH OBTAINED 05/16/19 06:45 Sputum - Expectorated Sputum Culture - Preliminary Pseudomonas Aeruginosa 05/14/19 15:40 Blood - Peripheral Venous Blood Culture - Preliminary NO GROWTH OBTAINED AFTER 72 HOURS, INCUBATION TO CONTINUE FOR 2 DAYS. 05/14/19 15:40 Blood - Peripheral Venous Blood Culture - Preliminary NO GROWTH OBTAINED AFTER 72 HOURS, INCUBATION TO CONTINUE FOR 2 DAYS. Imaging 05/15: Chest CT: +bullous emphysematous changes b/l. spiculated nodule in RUL measuring 1.6cm Also a 11mm, similar spiculated nodule in RO. Nodules have been identified previously, and have decreased in size since 2015. also a 7mm nodule at LLL. mediastinal and b/l axillary LNs. large R parapelvic cyst. 05/18 CXR: since 05/14, increased lung markings have diminished. there is some scarring in L upper lobe. there is a scoliosis with convexity to the left. 05/15: ECHO: EF 50-55%, regional wall motion abnormalities can't be ruled out d/ t limited visualization. RVSF grossly normal. mild to mod mitral annular calcification, mild TR, insufficient TR to calculate RVSP, mild to mod aortic sclerosis, no pericardial effusion. EKG: L axis deviation, qtc 483ms Assessment/Plan 88 y/o male PMH CAD (s/p stent 2016), COPD (home o2; 2L) HTN, HLD, anxiety c/o SOB for 2 days. Admitted for COPD exacerbation. #Acute COPD exacerbation -c/w duonebs, ventolin neb, NV 02 -switched from IV medrol to prednisone 40mg. (5 day course) -cx are (-) however sputum (+) pseudomonas without white count, afebrile will not start abx at this time -f/u pre and post before d/c -goal sat 88-92% -Pulm consulted: Dr. 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 can likely change to PO tomorrow -follow wts, i/o, lytes, na control 2g -repeat ECHO nl EF -c/w asa -store planner consulted; low salt diet -Cardio: Dr. Orr -off tele monitoring per cardio #HTN- controlled #HLD -c/w statin #F/E/N avoid IVF as CHF exac c/t follow lytes na controlled diet #PPX DVT: hep 5k sq tid #Dispo cont'd monitoring on med-surg for pre and post, but has home 02 per cardio, c/w lasix IVP for now. may switch to PO tomorrow home on prednisone 40mg x 5 days total (4 more) <Molly Ackerman - Last Filed: 05/19/19 17:37> - Note Progress Note: Seen and examined; please see resident note for further information. Agree with above as documented aside from as supplemented by myself. Personally verified all barrios historical details, PE findings, as well as all labs, imaging, and diagnostics. Discussed at length with resident and indicated consultants. PO prednisone; continues on IV diuresis. PT consulted. No new symptoms. SOB continues to improve but leg edema persists. 10 sys ROS done and negative aside from HPI NAD, AAO, resting in bed NC AT EOMI PERRLA HR wnl, s1/2+; persisting edema Lungs w/ sym crackles, w/ sym exp NT ND +BS CN2-12 wnl, no fnd Normal mood, appropriate behavior, average insight Trachea midline, no JVD Microbiology reviewed; Bcx negative with Sputum Cx Echo 05/12: nl LV/RV. nl valve fxn, no RVSP A/P: Seen on floor; continues to improve with respect to his acute on chronic respiratory failure 2/2 COPD and CHF exacerbation. Changing to PO steroids and will continue on IV diuresis per CV. Monitor Is and Os, QD weights, elytes ( optimize K and Mg). Wean from O2 as tolerated to home levels. Baseline known lung nodules. Acute on chronic respiratory failure, on 3-4L O2 (baseline 2L ATC) COPD Exacerbation Diastolic CHF exacerbation Leukocytosis likely from medrol, improved CAD s/p stent 2016 (Asx; continue home asa and statin and FU further CV recs) Lung nodule (Stable; follows with Dr. Smallwood OP) Hx Controlled HTN Hx HLD (Continue with home statin, OP FLP FU) DVT ppx reviewed; c/w hep Full Code <Wellington Miramontes - Last Filed: 05/20/19 12:37>
--- NOTE | 2019-05-19 13:19 | PN ---
Progress Note (short form) - Note Progress Note: s: improving sob, still has edema. no chest pain, palps, syncope. Current Medications Albuterol Sulfate (Ventolin 0.083% Nebulizer Soln -) 1 amp NEB RQ4H PRN PRN Reason: SHORT OF BREATH/WHEEZING Albuterol/Ipratropium (Duoneb -) 1 amp NEB RQID [facility] Last Admin: 05/19/19 12:28 Dose: 1 amp Aspirin (Ecotrin -) 81 mg PO DAILY [facility] Last Admin: 05/19/19 09:55 Dose: 81 mg Atorvastatin Calcium (Lipitor -) 40 mg PO HS [facility] Last Admin: 05/18/19 21:52 Dose: 40 mg Budesonide/Formoterol Fumarate (Symbicort 80/4.5mcg -) 2 puff IH BID [facility] Last Admin: 05/19/19 09:54 Dose: 2 puff Escitalopram Oxalate (Lexapro -) 10 mg PO DAILY [facility] Last Admin: 05/19/19 09:55 Dose: 10 mg Furosemide (Lasix Injection -) 40 mg IVPUSH BIDLASIX [facility] Last Admin: 05/19/19 05:52 Dose: 40 mg Heparin Sodium (Porcine) (Heparin -) 5,000 unit SQ TID [facility] Last Admin: 05/19/19 05:52 Dose: 5,000 unit Prednisone (Deltasone -) 40 mg PO DAILY [facility] Last Admin: 05/19/19 10:05 Dose: 40 mg Vital Signs Period Temp Pulse Resp BP Sys/Donovan Pulse Ox Last 24 Hr 97.4 F-98.3 F 65-139 18-20 108-153/59-86 93-100 Constitutional: Yes: Well Nourished, No Distress, Calm Cardiovascular: Yes: Regular Rate and Rhythm (decr intensity sounds (copd), obscured by rhonchi), S1, S2. No: Gallop, Murmur Respiratory: Yes: Regular, Rhonchi. No: Accessory Muscle Use, Wheezes Extremities: No: Cold Edema: Yes (2+ pretib) Neurological: Yes: Alert, Oriented Psychiatric: No: Agitated Assessment/Plan Echo 05/12: nl LV/RV. nl valve fxn, no RVSP IMP: COPD on home O2 w/ acute exacerbation Lung masses, chronic Venous insufficiency/edema, chronic Probable acute on chronic diastolic CHF, mild exacerbation CAD s/p PCI REC: 1. Abx, steroids and further w/u lung masses as per Pulm (chronic) 2. cont lasix 40 iv bid for now, cont ANGELINE stockings for edema. likely transition to PO lasix tomorrow 3. Cont home meds for his stable CAD.
[2019-05-19] MEDS: ATORVASTATIN CA 40 MG TABLET (FP) PO SCH (21:39)
[2019-05-20] MEDS: FUROSEMIDE 40 MG/4 ML INJECTABLE VIAL IVPUSH SCH ×2 (06:22→14:02)
[2019-05-20] MEDS: HEPARIN NA (PORCINE) 5,000 UNITS/ML 1ML VIAL SQ SCH ×3 (06:22→21:38)
[2019-05-20] MEDS: ALBUTEROL SO4 2.5/IPRATROPIUM 0.5 INH SOL 3 ML VIAL.NEB. NEB SCH ×4 (07:25→21:31)
[2019-05-20 08:44] LABS: BASO % 0.3 % (0-2.0); EOS % 0.3 % (0-4.5); HEMATOCRIT 47.5 % (35.4-49); HEMOGLOBIN 15.9 GM/dL (11.7-16.9); LYMPH % 12.9 % (8-40); MCH 30.6 pg (25.7-33.7); MCHC 33.6 g/dl (32.0-35.9); MEAN CELL VOLUME 91.1 fl (80-96); MEAN PLT VOLUME 7.8 fl (7.5-11.1); MONO % 8.2 % (3.8-10.2); NEUT % 78.3 % (42.8-82.8); PLATELET COUNT 265 K/MM3 (134-434); RBC 5.21 M/mm3 (4.00-5.60); RDW 14.6 % (11.9-15.9); WHITE BLOOD COUNT 12.6 K/mm3 (4.0-10.0)
[2019-05-20 09:10] LABS: POTASSIUM 3.6 mmol/L (3.5-5.1)
[2019-05-20] MEDS: predniSONE 20 MG TABLET (UD) PO SCH (11:04)
[2019-05-20] MEDS: BUDESONIDE/FORMETEROL FUMARATE 80/4.5 mcg INHALER IH SCH ×2 (11:04→21:38)
[2019-05-20] MEDS: ESCITALOPRAM OXALATE 10 MG TABLET (FP) PO SCH (11:05)
[2019-05-20] MEDS: ASPIRIN COATED 81 MG TABLET.EC PO SCH (11:05)
--- NOTE | 2019-05-20 12:52 | PN ---
Progress Note, Physician History of Present Illness: pulmonary alert,less dyspneic,anxious - Current Medication List Current Medications: Active Medications Albuterol Sulfate (Ventolin 0.083% Nebulizer Soln -) 1 amp NEB RQ4H PRN PRN Reason: SHORT OF BREATH/WHEEZING Albuterol/Ipratropium (Duoneb -) 1 amp NEB RQID [facility] Last Admin: 05/20/19 11:10 Dose: 1 amp Aspirin (Ecotrin -) 81 mg PO DAILY [facility] Last Admin: 05/20/19 11:05 Dose: 81 mg Atorvastatin Calcium (Lipitor -) 40 mg PO HS [facility] Last Admin: 05/19/19 21:39 Dose: 40 mg Budesonide/Formoterol Fumarate (Symbicort 80/4.5mcg -) 2 puff IH BID [facility] Last Admin: 05/20/19 11:04 Dose: 2 puff Escitalopram Oxalate (Lexapro -) 10 mg PO DAILY [facility] Last Admin: 05/20/19 11:05 Dose: 10 mg Furosemide (Lasix Injection -) 40 mg IVPUSH BIDLASIX [facility] Last Admin: 05/20/19 06:22 Dose: 40 mg Heparin Sodium (Porcine) (Heparin -) 5,000 unit SQ TID [facility] Last Admin: 05/20/19 06:22 Dose: 5,000 unit Prednisone (Deltasone -) 40 mg PO DAILY [facility] Last Admin: 05/20/19 11:04 Dose: 40 mg - Objective Vital Signs: Vital Signs Temperature 97.7 F 05/20/19 09:00 Pulse Rate 78 05/20/19 09:00 Respiratory Rate 18 05/20/19 09:00 Blood Pressure 131/63 05/20/19 09:00 O2 Sat by Pulse Oximetry (%) 93 L 05/19/19 20:55 Constitutional: Yes: Well Nourished, Anxious Eyes: Yes: WNL HENT: Yes: WNL Neck: Yes: WNL Cardiovascular: Yes: Regular Rate and Rhythm, S1, S2 Respiratory: Yes: Diminished (few wheezes) Gastrointestinal: Yes: Normal Bowel Sounds, Soft Extremities: Yes: WNL Edema: No Labs: CBC, BMP 05/20/19 08:10 05/20/19 08:10 INR, PTT INR 1.13 (0.83-1.09) H 05/14/19 15:40 Problem List - Problems (1) COPD exacerbation Code(s): J44.1 - CHRONIC OBSTRUCTIVE PULMONARY DISEASE W (ACUTE) EXACERBATION (2) SOB (shortness of breath) Code(s): R06.02 - SHORTNESS OF BREATH (3) CAD (coronary artery disease) Code(s): I25.10 - ATHSCL HEART DISEASE OF [place] CORONARY ARTERY W/O ANG PCTRS Qualifiers: [place] vs. transplanted heart: [place] heart (4) Hyperlipidemia Code(s): E78.5 - HYPERLIPIDEMIA, UNSPECIFIED (5) Hypertension Code(s): I10 - ESSENTIAL (PRIMARY) HYPERTENSION Qualifiers: Hypertension type: essential hypertension Qualified Code(s): I10 - Essential (primary) hypertension (6) Leg edema Code(s): R60.0 - LOCALIZED EDEMA (7) Lung nodule Code(s): R91.1 - SOLITARY PULMONARY NODULE (8) Lung nodule seen on imaging study Code(s): R91.1 - SOLITARY PULMONARY NODULE (9) Shortness of breath Code(s): R06.02 - SHORTNESS OF BREATH (10) UTI (urinary tract infection) Code(s): N39.0 - URINARY TRACT INFECTION, SITE NOT SPECIFIED Qualifiers: Urinary tract infection type: site unspecified Hematuria presence: without hematuria Qualified Code(s): N39.0 - Urinary tract infection, site not specified Assessment/Plan IMP DYSPNEA COPD O2 DEPENDENT WITH ACUTE EXACERBATION URI DIASTOLIC DYSFUNCTION ASHD S/P NSTEMI,S/P STENTS RUL,RO PULMONARY NODULES STABLE PLAN INHALED BRONCHODILATORS PREDNISONE O2 ABX LASIX DAILY WT MONITOR LYTES,CBC DR HEATH Problem List - Problems (1) COPD exacerbation Code(s): J44.1 - CHRONIC OBSTRUCTIVE PULMONARY DISEASE W (ACUTE) EXACERBATION (2) SOB (shortness of breath) Code(s): R06.02 - SHORTNESS OF BREATH (3) CAD (coronary artery disease) Code(s): I25.10 - ATHSCL HEART DISEASE OF [place] CORONARY ARTERY W/O ANG PCTRS Qualifiers: [place] vs. transplanted heart: [place] heart (4) Hyperlipidemia Code(s): E78.5 - HYPERLIPIDEMIA, UNSPECIFIED (5) Hypertension Code(s): I10 - ESSENTIAL (PRIMARY) HYPERTENSION Qualifiers: Hypertension type: essential hypertension Qualified Code(s): I10 - Essential (primary) hypertension (6) Leg edema Code(s): R60.0 - LOCALIZED EDEMA (7) Lung nodule Code(s): R91.1 - SOLITARY PULMONARY NODULE (8) Lung nodule seen on imaging study Code(s): R91.1 - SOLITARY PULMONARY NODULE (9) Shortness of breath Code(s): R06.02 - SHORTNESS OF BREATH (10) UTI (urinary tract infection) Code(s): N39.0 - URINARY TRACT INFECTION, SITE NOT SPECIFIED Qualifiers: Urinary tract infection type: site unspecified Hematuria presence: without hematuria Qualified Code(s): N39.0 - Urinary tract infection, site not specified
--- NOTE | 2019-05-20 14:43 | PN ---
Progress Note (short form) - Note Progress Note: s: sob better, at baseline. no cp palps dizzy Current Medications Generic Name Dose Route Start Last Admin Trade Name Freq PRN Reason Stop Dose Admin Albuterol Sulfate 1 amp 05/15/19 00:35 Ventolin 0.083% Nebulizer Soln - NEB RQ4H PRN SHORT OF BREATH/WHEEZING Albuterol/Ipratropium 1 amp 05/15/19 08:00 05/20/19 11:10 Duoneb - NEB 1 amp RQID [facility] Administration Aspirin 81 mg 05/16/19 10:00 05/20/19 11:05 Ecotrin - PO 81 mg DAILY [facility] Administration Atorvastatin Calcium 40 mg 05/15/19 22:00 05/19/19 21:39 Lipitor - PO 40 mg HS [facility] Administration Budesonide/Formoterol Fumarate 2 puff 05/15/19 10:00 05/20/19 11:04 Symbicort 80/4.5mcg - IH 2 puff BID [facility] Administration Escitalopram Oxalate 10 mg 05/17/19 13:45 05/20/19 11:05 Lexapro - PO 10 mg DAILY [facility] Administration Furosemide 40 mg 05/21/19 10:00 Lasix - PO DAILY [facility] Heparin Sodium (Porcine) 5,000 unit 05/14/19 22:00 05/20/19 14:03 Heparin - SQ 5,000 unit TID [facility] Administration Prednisone 40 mg 05/19/19 10:00 05/20/19 11:04 Deltasone - PO 40 mg DAILY [facility] Administration Vital Signs Period Temp Pulse Resp BP Sys/Donovan Pulse Ox Last 24 Hr 97.5 F-98.1 F 75-81 18-20 126-137/60-72 93 Constitutional: Yes: Well Nourished, No Distress, Calm Cardiovascular: Yes: Regular Rate and Rhythm (decr intensity sounds (copd), obscured by rhonchi), S1, S2. No: Gallop, Murmur Respiratory: Yes: Regular, Rhonchi. No: Accessory Muscle Use, Wheezes Extremities: No: Cold Edema: trace le edema bl Neurological: Yes: Alert, Oriented Psychiatric: No: Agitated CBC, BMP 05/20/19 08:10 05/20/19 08:10 Assessment/Plan Echo 05/12: nl LV/RV. nl valve fxn, no RVSP IMP: COPD on home O2 w/ acute exacerbation Lung masses, chronic Venous insufficiency/edema, chronic Probable acute on chronic diastolic CHF, mild exacerbation CAD s/p PCI REC: 1. Abx, steroids and further w/u lung masses as per Pulm (chronic) 2. po lasix for le edema 3. Cont home meds for his stable CAD.
[2019-05-20 15:30] VITALS: BMI 23.9
--- NOTE | 2019-05-20 16:20 | PN ---
Progress Note (short form) - Note Progress Note: Hospitalist Medicine Sitting up, without 02 on. Breathing improved. Vitals 05/20/19 15:00 Temperature 97.9 F Pulse Rate 91 H Respiratory 20 Rate Blood Pressure 102/64 Physical Exam general: resting, in NAD HEENT: NCAT, PERRLA neck: supple cardio: S1, S2 RRR. no r/m/g pulm: +scattered rhonchi. no accessory m usage abdomen: soft, nontender, nondistended LE: trace pitting edema b/l. pulses intact . +ecchymoses on shins b/l- stable. neuro: engine installer 2-12 grossly intact. gait not assessed Laboratory Tests 05/20/19 05/20/19 08:10 08:10 WBC 12.6 H Hgb 15.9 Hct 47.5 Plt Count 265 Sodium 137 Potassium 3.6 Chloride 100 BUN 49.0 H Random Glucose 72 L Microbiology 05/16/19 06:45 Sputum - Expectorated Gram Stain - Final 05/15/19 17:20 Urine For Antigen Detection Legionella Antigen - Final 05/15/19 17:20 Urine For Antigen Detection Streptococcus pneumoniae Antigen (M - Final 05/14/19 15:40 Urine - Urine Clean Catch Urine Culture - Final NO GROWTH OBTAINED 05/16/19 06:45 Sputum - Expectorated Sputum Culture - Preliminary Pseudomonas Aeruginosa 05/14/19 15:40 Blood - Peripheral Venous Blood Culture - Preliminary NO GROWTH OBTAINED AFTER 72 HOURS, INCUBATION TO CONTINUE FOR 2 DAYS. 05/14/19 15:40 Blood - Peripheral Venous Blood Culture - Preliminary NO GROWTH OBTAINED AFTER 72 HOURS, INCUBATION TO CONTINUE FOR 2 DAYS. Imaging 05/15: Chest CT: +bullous emphysematous changes b/l. spiculated nodule in RUL measuring 1.6cm Also a 11mm, similar spiculated nodule in RO. Nodules have been identified previously, and have decreased in size since 2015. also a 7mm nodule at LLL. mediastinal and b/l axillary LNs. large R parapelvic cyst. 05/18 CXR: since 05/14, increased lung markings have diminished. there is some scarring in L upper lobe. there is a scoliosis with convexity to the left. 05/15: ECHO: EF 50-55%, regional wall motion abnormalities can't be ruled out d/ t limited visualization. RVSF grossly normal. mild to mod mitral annular calcification, mild TR, insufficient TR to calculate RVSP, mild to mod aortic sclerosis, no pericardial effusion. EKG: L axis deviation, qtc 483ms Assessment/Plan 88 y/o male PMH CAD (s/p stent 2016), COPD (home o2; 2L) HTN, HLD, anxiety c/o SOB for 2 days. Admitted for COPD exacerbation. #Acute COPD exacerbation -c/w riana proctor [facility], [place] -switched from IV medrol to prednisone 40mg (Day2); 5 days total -cx are (-) however sputum (+) pseudomonas without white count, afebrile will not start abx at this time -goal sat 88-92% -Pulm consulted: Dr. 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 Orr -off tele monitoring per cardio #HTN- controlled #HLD -c/w statin #F/E/N avoid IVF as CHF exac c/t follow lytes na controlled diet #PPX DVT: hep 5k sq tid #Dispo cont'd monitoring on med-surg ; anticipate d/c 24hrs req 4L pre and post at home
[2019-05-20] MEDS: ATORVASTATIN CA 40 MG TABLET (FP) PO SCH (21:37)
[2019-05-21] MEDS: HEPARIN NA (PORCINE) 5,000 UNITS/ML 1ML VIAL SQ SCH (06:10)
[2019-05-21 07:43] VITALS: BP 115/71; PULSE 65; TEMP 97.7
[2019-05-21 08:45] LABS: BLOOD UREA NITROGEN 44.4 mg/dL (7-18); CALCIUM 8.9 mg/dL (8.5-10.1); CREATININE 0.9 mg/dL (0.55-1.3); MAGNESIUM 2.5 mg/dL (1.8-2.4); PHOSPHOROUS 3.6 mg/dL (2.5-4.9); POTASSIUM 3.6 mmol/L (3.5-5.1)
[2019-05-21] MEDS ORDERED: PT OWN MED DRAWER 7, Y5N ONE (09:16)
[2019-05-21] MEDS: predniSONE 20 MG TABLET (UD) PO SCH (09:17)
[2019-05-21] MEDS: ESCITALOPRAM OXALATE 10 MG TABLET (FP) PO SCH (09:17)
[2019-05-21] MEDS: ASPIRIN COATED 81 MG TABLET.EC PO SCH (09:17)
[2019-05-21] MEDS: BUDESONIDE/FORMETEROL FUMARATE 80/4.5 mcg INHALER IH SCH (09:18)
[2019-05-21] MEDS: ALBUTEROL SO4 2.5/IPRATROPIUM 0.5 INH SOL 3 ML VIAL.NEB. NEB SCH (09:55)
[2019-05-21] MEDS ORDERED: FUROSEMIDE 40 MG TABLET (FP) PO SCH (10:00)
--- NOTE | 2019-05-21 15:54 | DS ---
Physical Exam: SUBJECTIVE: Patient seen and examined at bedside. Ready to go home, breathing has improved OBJECTIVE: Vital Signs Period Temp Pulse Resp BP Sys/Donovan Pulse Ox Last 24 Hr 97.6 F-97.8 F 65-98 18-20 108-135/58-74 100-100 Physical Exam general: resting, in NAD HEENT: NCAT, PERRLA neck: supple cardio: S1, S2 RRR. no r/m/g pulm: +scattered rhonchi. no accessory m usage abdomen: soft, nontender, nondistended LE: trace pitting edema b/l. pulses intact . +ecchymoses on shins b/l- stable. neuro: spa associate 2-12 grossly intact. gait not assessed LABS Laboratory Results - last 24 hr 05/21/19 07:35 Sodium 140 Potassium 3.6 Chloride 99 Carbon Dioxide 34 H Anion Gap 7 L BUN 44.4 H Creatinine 0.9 Est GFR (CKD-EPI)AfAm 89.32 Est GFR (CKD-EPI)NonAf 77.06 Random Glucose 76 Calcium 8.9 Phosphorus 3.6 Magnesium 2.5 H 05/14/19 05/15/19 05/16/19 15:40 05:30 08:40 WBC 9.4 5.1 10.1 H Hgb 14.6 13.4 13.8 Hct 43.9 39.8 40.8 Plt Count 232 D 229 225 05/17/19 05/18/19 05/19/19 08:05 07:55 08:15 WBC 11.2 H 8.5 10.2 H Hgb 13.5 13.9 15.0 Hct 40.3 40.9 44.5 Plt Count 236 225 266 05/20/19 08:10 WBC 12.6 H Hgb 15.9 Hct 47.5 Plt Count 265 05/14/19 15:40 PT with INR 13.40 H INR 1.13 H PTT (Actin FS) 32.6 05/14/19 05/15/19 05/16/19 15:40 05:30 08:40 Sodium 140 139 139 Potassium 4.2 4.2 3.7 Chloride 107 105 104 Carbon Dioxide 28 BUN 22.6 H 24.9 H 35.0 H Creatinine 0.9 0.9 0.9 Random Glucose 132 H 146 H B-Natriuretic Peptide 588.5 H Total Protein 6.1 L 05/17/19 05/18/19 05/19/19 08:05 07:55 08:15 Sodium 139 139 Potassium 4.3 4.1 4.2 Chloride Carbon Dioxide BUN 40.7 H 42.6 H Creatinine 0.9 0.9 1.1 Random Glucose B-Natriuretic Peptide Total Protein 05/20/19 05/21/19 08:10 07:35 Sodium 137 140 Potassium 3.6 3.6 Chloride Carbon Dioxide BUN 49.0 H 44.4 H Creatinine 1.0 0.9 Random Glucose B-Natriuretic Peptide Total Protein Microbiology 05/16/19 06:45 Sputum - Expectorated Gram Stain - Final 05/16/19 06:45 Sputum - Expectorated Sputum Culture - Final Pseudomonas Aeruginosa 05/15/19 17:20 Urine For Antigen Detection Legionella Antigen - Final 05/15/19 17:20 Urine For Antigen Detection Streptococcus pneumoniae Antigen (M - Final 05/14/19 15:40 Urine - Urine Clean Catch Urine Culture - Final NO GROWTH OBTAINED 05/14/19 15:40 Blood - Peripheral Venous Blood Culture - Final NO GROWTH AFTER 5 DAYS INCUBATION 05/14/19 15:40 Blood - Peripheral Venous Blood Culture - Final NO GROWTH AFTER 5 DAYS INCUBATION Imaging 05/15: Chest CT: +bullous emphysematous changes b/l. spiculated nodule in RUL measuring 1.6cm Also a 11mm, similar spiculated nodule in RO. Nodules have been identified previously, and have decreased in size since 2014. also a 7mm nodule at LLL. mediastinal and b/l axillary LNs. large R parapelvic cyst. 05/18 CXR: since 05/14, increased lung markings have diminished. there is some scarring in L upper lobe. there is a scoliosis with convexity to the left. 05/15: ECHO: EF 50-55%, regional wall motion abnormalities can't be ruled out d/ t limited visualization. RVSF grossly normal. mild to mod mitral annular calcification, mild TR, insufficient TR to calculate RVSP, mild to mod aortic sclerosis, no pericardial effusion. EKG: L axis deviation, qtc 483ms HOSPITAL COURSE: Date of Admission:05/14/19 Date of Discharge: 05/21/19 Admitting diagnoses: CHF exacerbation, COPD exacerbation 88 y/o male PMH CAD (s/p stent 2016), COPD (home o2; 2L) HTN, HLD, anxiety c/o SOB for 2 days. Admitted for COPD exacerbation. 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 This caused you to have trouble breathing. While you were here, you also had an ECHO (picture taken of your heart) which was normal. You have improved and are being sent home. You should continue home oxygen as needed, as you were doing previously. Medications You have been started on the following medications: -Prednisone 40mg (1 pill) a day for 3 more days, starting today (05/21/19) -Lasix 40mg (water pill)- take 1 pill daily. You may continue your other home medications Care With CHF (congestive heart failure), this means that you have fluid on your body. Please weigh yourself daily. If you notice that you are gaining weight, it may mean that you may need to have your Lasix (water pill) dose adjusted. Please discuss this with your enterprise account executive. You will also need to refrain from eating high salt. This can cause you to retain salt. Please try to eat less than 2 grams of salt in your foods daily. Testing You will need continued monitoring of your lung nodules after discharge. They have been stable however you will need follow up imaging. You can discuss this with the lung doctor. Follow-ups -Please follow with the following physicians: -your primary care doctor, Dr. Dahl - 1 week -a enterprise account executive, Dr. Orr - 1 week. To discuss your visit. He saw you while you were in the hospital. -pulmonary doctor, Dr. Smallwood - 1 week. If you develop chest pain or shortness of breath, please go to the hospital or please call your doctor immediately. Referrals: Neeraj Smallwood MD [Staff Physician] - 1 Week Nile Dahl MD [Staff Physician] - 1 Week Everett Orr MD [Staff Physician] - 1 Week Disposition: HOME - Home Medications Comprehensive Discharge Medication List: Ambulatory Orders Atorvastatin Ca [Lipitor] 40 mg PO HS tablet 09/04/17 Budesonide/Formeterol Fumarate [SYMBICORT 80/4.5mcg -] 2 puff IH BID inhaler Escitalopram Oxalate [Lexapro -] 10 mg PO DAILY tablet 09/04/17 Ipratropium/Albuterol Sulfate [Combivent Respimat 20-100 Mcg] 4 gm IH QID #1 aer.w.adap 09/04/17 Tiotropium [place] [Spiriva] 1 puff IH DAILY inh 09/04/17 Ranitidine [Zantac -] 150 mg PO DAILY 06/01/18 Terbinafine HCl [Terbinafine] 1 applic TP AC #30 cream..g. 10/10/18 Magnesium 200 mg PO DAILY 10/17/18 Aspirin [Adult Aspirin Regimen] 81 mg PO DAILY 05/15/19 Furosemide [Lasix] 40 mg PO DAILY #30 tablet 05/20/19 Prednisone 40 mg PO DAILY #3 tablet 05/20/19 This patient is new to me today: No Emergency Visit: No Critical Care patient: No - Discharge Referral Referred to [facility] Med P.C[facility] No ATTENDING PHYSICIAN STATEMENT I saw and evaluated the patient. I reviewed the resident's note and discussed the case with the resident. I agree with the resident's findings and plan as documented. SUBJECTIVE: OBJECTIVE: ASSESSMENT AND PLAN:
== END 2019-05-21 10:45 | disposition home or self-care (01) | DRG 190 ==
LOC: JER 14:56 → JERBED 18:12 → J8W 05-15 11:36
PROVIDERS: ADMIT Internal Medicine; ATTEND Internal Medicine
DX: J44.1 Chronic obstructive pulmonary disease with (acute) exacerbation (principal); I50.33 Acute on chronic diastolic (congestive) heart failure; J96.22 Acute and chronic respiratory failure with hypercapnia; N39.0 Urinary tract infection, site not specified; I11.0 Hypertensive heart disease with heart failure; R91.8 Other nonspecific abnormal finding of lung field; E78.5 Hyperlipidemia, unspecified; I25.10 Atherosclerotic heart disease of native coronary artery without angina pectoris; Z98.61 Coronary angioplasty status; J06.9 Acute upper respiratory infection, unspecified; D72.829 Elevated white blood cell count, unspecified; J20.9 Acute bronchitis, unspecified
CPT/HCPCS: 36415; 71045-TC-FY; 71250-TC; 80048; 80053; 81003; 82803; 82962; 83605; 83735; 83880; 84100; 84484; 85025; 85027; 85610; 85730; 87040; 87070; 87086; 87186; 87205; 87899; 93005; 93010; 93306-TC; 94640; 94761; 97116-GP; 97161-GP; 99285-25; J1644

== ENCOUNTER 2019-06-26 17:39 | Inpatient (IN) | payer OTHER, BC ==
[2019-06-26] MEDS ORDERED: ALBUTEROL SO4 2.5/IPRATROPIUM 0.5 INH SOL 3 ML VIAL.NEB. NEB ONE ×2 (18:08→18:29)
--- NOTE | 2019-06-26 18:08 | PDOC ---
History of Present Illness - General Chief Complaint: Respiratory Stated Complaint: WEAKNESS Time Seen by Provider: 06/26/19 17:51 History Source: Patient, Old Records Exam Limitations: No Limitations - History of Present Illness Initial Comments: 06/26/19 18:07 88y M with PMH of CAD s/p stent 2017, COPD on 2L home O2, HTN, HLD presenting to ED for SOB and bilateral leg swelling since discharge from the hospital 1 month ago. Patient states that he is using the O2 more frequently than usual when he usually only uses it at night, he is unable to lay down flat. Also has SHANNON. He states he takes 40mg lasix daily and it is not helping with the swelling. Denies chest pain, fevers, chills, productive cough, back pain, headache, n/v/d, abdominal pain, decreased urine output. PMD: [place] Card: [place] Pulm: Cl PMH: see hpi PSH: see hpi Meds: see med rec Allergies: nkda Social: occasional alcohol use Past History - Past Medical History Allergies/Adverse Reactions: Allergies Allergy/AdvReac Type Severity Reaction Status Date / Time No Known Drug Allergies Allergy Verified 06/26/19 18:08 shrimp Allergy Unknown lip Uncoded 06/26/19 18:08 swelling Home Medications: Ambulatory Orders Atorvastatin Ca [Lipitor] 40 mg PO HS tablet 09/04/17 Budesonide/Formeterol Fumarate [SYMBICORT 80/4.5mcg -] 2 puff IH BID inhaler Escitalopram Oxalate [Lexapro -] 10 mg PO DAILY tablet 09/04/17 Ipratropium/Albuterol Sulfate [Combivent Respimat 20-100 Mcg] 4 gm IH QID #1 aer.w.adap 09/04/17 Tiotropium [place] [Spiriva] 1 puff IH DAILY inh 09/04/17 Aspirin [Adult Aspirin Regimen] 81 mg PO DAILY 05/15/19 Furosemide [Lasix] 40 mg PO DAILY #30 tablet 05/20/19 Metoprolol Succinate [Toprol Xl] 25 mg PO DAILY 06/26/19 Omeprazole 20 mg PO DAILY 06/26/19 Anemia: No Asthma: No Cancer: No Cardiac Disorders: Yes (Chest Pain, MA with stents) CVA: No COPD: Yes CHF: No DVT: No Dementia: No Diabetes: No Dialysis: No GI Disorders: No Disorders: No HTN: Yes Hypercholesterolemia: Yes Kidney Stones: No Liver Disease: No Psychiatric Problems: No Seizures: No Thyroid Disease: No Lung CA: No - Surgical History Abdominal Surgery: No Appendectomy: No Cardiac Surgery: Yes (Cardiac Cath 2014, stents 2017) Cholecystectomy: No Gastric Stapling: No GI Surgery: No Lung Surgery: No Neurologic Surgery: No Orthopedic Surgery: No - Immunization History Td Vaccination: Yes TDAP Vaccination: Yes Immunization Up to Date: Yes - Psycho Social/Smoking Cessation Hx Smoking Status: Yes Smoking History: Former smoker Have you smoked in the past 12 months: No Number of Cigarettes Smoked Daily: 0 If you are a former smoker, when did you quit?: 40 years ago Cigars Per Day: 0 Hx Alcohol Use: No Drug/Substance Use Hx: No Substance Use Type: None Hx Substance Use Treatment: No Respiratory Specific PMHX - Complaint Specific PMHX Hx Pneumonia: Yes Review of Systems - Review of Systems Constitutional: No: Symptoms Reported HEENTM: No: Symptoms Reported Respiratory: Yes: See HPI Cardiac (ROS): No: Symptoms Reported ABD/GI: No: Symptoms Reported : No: Symptoms Reported Musculoskeletal: No: Symptoms Reported Integumentary: No: Symptoms Reported Neurological: No: Symptoms reported *Physical Exam - Physical Exam General Appearance: Yes: Nourished, Appropriately Dressed. No: Apparent Distress HEENT: positive: EOMI, JIHAN, Normal ENT Inspection Neck: positive: Trachea midline, Supple. negative: Lymphadenopathy (R), Lymphadenopathy (L) Respiratory/Chest: positive: Decreased Breath Sounds (L lung field), Rhonchi. negative: Crackles, Rales, Stridor Cardiovascular: positive: Regular Rhythm, Regular Rate, S1, S2. negative: Edema , JVD, Murmur Vascular Pulses: Dorsalis-Pedis (R): 2+, Doralis-Pedis (L): 2+ Gastrointestinal/Abdominal: positive: Normal Bowel Sounds, Soft. negative: Tender Musculoskeletal: negative: CVA Tenderness, Vertebral Tenderness Extremity: positive: Normal Capillary Refill, Pedal Edema (up to knees bilatarally). negative: Pelvis Stable Integumentary: positive: Normal Color, Dry, Warm, Other (fluid filled bullae on legs bilaterally, tense) Neurologic: positive: multiple drill operator II-XII NML intact, Fully Oriented, Alert, Normal Mood/ Affect, Normal Response, Motor Strength 10/26 ED Treatment Course - LABORATORY CBC & Chemistry Diagram: 06/26/19 18:00 06/26/19 18:00 - RADIOLOGY Radiology Studies Ordered: Category Date Time Status CHEST X-RAY PORTABLE* [RAD] Stat Radiology 06/26/19 17:55 Ordered Medical Decision Making - Medical Decision Making 06/27/19 00:10 88y m with pmh of cad, copd, htn, hld presenting for sob, worsening. vitals: tachypnea and saturating well on NC. ddx includes but not limited to acs, pe, pna, ptx, effusions, malignancy, chf will obtain cardiac labs, bnp, cxr, ekg labs show bnp wnl but elevated trop 0.08. ekg" nsr at 72bpm, no donnell or depresions, left axis deviation. low voltage. similar to prior ekg 1 month ago. cxr: pneumo v. bleb in lillie. will order CT. given breathing tx and asa. admitted Tele Discharge - Discharge Information Problems reviewed: Yes Clinical Impression/Diagnosis: SOB (shortness of breath), Elevated troponin I level Condition: Stable - Admission Yes - Follow up/Referral - Patient Discharge Instructions - Post Discharge Activity
[2019-06-26 18:32] LABS: BASO % 1.2 % (0-2.0); EOS % 0.7 % (0-4.5); HEMATOCRIT 43.2 % (35.4-49); HEMOGLOBIN 14.3 GM/dL (11.7-16.9); LYMPH % 9.2 % (8-40); MCH 30.2 pg (25.7-33.7); MEAN CELL VOLUME 91.4 fl (80-96); MEAN PLT VOLUME 7.5 fl (7.5-11.1); MONO % 7.7 % (3.8-10.2); NEUT % 81.2 % (42.8-82.8); PLATELET COUNT 225 K/MM3 (134-434); RBC 4.72 M/mm3 (4.00-5.60); RDW 14.9 % (11.9-15.9); WHITE BLOOD COUNT 10.2 K/mm3 (4.0-10.0)
[2019-06-26 18:45] LABS: INR 1.12 (0.83-1.09); PROTHROMBIN TIME (PATIENT) 13.2 SEC (9.7-13.0)
[2019-06-26 19:13] LABS: ALBUMIN 3.1 g/dl (3.4-5.0); BILIRUBIN,TOTAL 0.6 mg/dL (0.2-1); BLOOD UREA NITROGEN 24.3 mg/dL (7-18); CALCIUM 8.8 mg/dL (8.5-10.1); CREATININE 0.9 mg/dL (0.55-1.3); MAGNESIUM 2.1 mg/dL (1.8-2.4); N-TERMINAL BNP 413.4 pg/ml (5-450); PHOSPHOROUS 3.1 mg/dL (2.5-4.9); POTASSIUM 3.8 mmol/L (3.5-5.1); TOT PROT 5.8 g/dl (6.4-8.2)
[2019-06-26] MEDS ORDERED: ASPIRIN 81 MG CHEWABLE TABLETS PO ONE (19:18)
[2019-06-26] MEDS ORDERED: ASPIRIN 81 MG CHEWABLE TABLETS ONE (19:30)
--- NOTE | 2019-06-26 19:36 | PN ---
Teaching Attending Note Name of Resident: Bisi Figueroa ATTENDING PHYSICIAN STATEMENT I saw and evaluated the patient. I reviewed the resident's note and discussed the case with the resident. I agree with the resident's findings and plan as documented. SUBJECTIVE: Patient is a 88 year old man with a PMH of CAD (s/p stent in 2017), COPD (on 2L home O2), Chronic lung mass, HTN and HLD presenting to ER for SOB and bilateral leg swelling since discharge from the hospital 1 month ago. Patient states that he is using the O2 more frequently than usual when he usually only uses it at night. He is unable to lay down flat. Also has SHANNON. He states he takes 40 mg lasix daily and it is not helping with the swelling. Denies chest pain, fevers, chills, productive cough, back pain, headache, nausea, vomiting, diarrhea, abdominal pain, dysuria or decreased urine output. Denies any sick contacts or recent travels. Denies alcohol, tobacco or illicit drug use. OBJECTIVE: Alert Vital Signs Period Temp Pulse Resp BP Sys/Donovan Pulse Ox Last 24 Hr 98.9 F 81 20 119/54 95 HEENT: No Jaundice, eye redness or discharge, PERRLA, EOMI. Normocephalic, atraumatic. External ears are normal and hearing is grossly intact. No nasal discharge. Neck: Supple, nontender. No palpable adenopathy or thyromegaly. No JVD Chest: Good effort. Prolonged expiration and wheezing. Clear to percussion. Heart: Regular. No S3, rub or murmur Abdomen: Not distended, soft, nontender and no HSM. No rebound or guarding. Normal bowel sounds. Ext: Peripheral pulses intact. Leg edema. Bullae on both shins surrounded by areas of erythema. Skin: Warm and dry. No petechiae, rash or ecchymosis. Neuro: Alert. Oriented x3. CN 2-12 grossly intact. Sensation grossly intact in all four extremities and DTR are symmetric. Psych: Appropriate mood and affect. Good insight. Home Medications Medication Instructions Recorded Atorvastatin Ca [Lipitor] 40 mg PO HS tablet 09/04/17 Budesonide/Formeterol Fumarate 2 puff IH BID inhaler 09/04/17 [SYMBICORT 80/4.5mcg -] Escitalopram Oxalate [Lexapro -] 10 mg PO DAILY tablet 09/04/17 Ipratropium/Albuterol Sulfate 4 gm IH QID #1 aer.w.adap 09/04/17 [Combivent Respimat 20-100 Mcg] Tiotropium [place] [Spiriva] 1 puff IH DAILY inh 09/04/17 Ranitidine [Zantac -] 150 mg PO DAILY 06/01/18 Terbinafine HCl [Terbinafine] 1 applic TP AC #30 cream..g. 10/10/18 Magnesium 200 mg PO DAILY 10/17/18 Aspirin [Adult Aspirin Regimen] 81 mg PO DAILY 05/15/19 Furosemide [Lasix] 40 mg PO DAILY #30 tablet 05/20/19 Prednisone 40 mg PO DAILY #3 tablet 05/20/19 Abnormal Lab Results 06/26/19 06/26/19 06/26/19 18:00 18:00 18:00 WBC 10.2 H Absolute Neuts (auto) 8.3 H PT with INR INR Anion Gap 5 L BUN 24.3 H AST 42 H Troponin I 0.08 H Total Protein 5.8 L Albumin 3.1 L Urine Protein Urine Ketones Urine Blood Ur Leukocyte Esterase 06/26/19 06/26/19 06/26/19 18:00 20:20 22:50 WBC Absolute Neuts (auto) PT with INR 13.20 H INR 1.12 H Anion Gap BUN AST Troponin I 0.10 H Total Protein Albumin Urine Protein 1+ H Urine Ketones Trace H Urine Blood 3+ H Ur Leukocyte Esterase 2+ H ASSESSMENT AND PLAN: 1. Diastolic CHF/COPD exacerbation - CXR shows increased interstitial markings. Has evidence of UTI. EKG shows NSR, LAD and septal infarct of undetermined age. Elevated troponin may be demand ischemia, but will monitor on telemetry and rule out ACS. ECHO from 05/15/2019 showed LVEF of 50-55% and LV systolic function was grossly normal. Will diurese with IV lasix first and then treat with Xopenex, solumedrol and symbicort. Restrict dietary salt intake and get daily standing weight. Consult cardiology. Treat UTI with IV Rocephin. Hematuria may be due to UTI - repeat UA after UTI is treated and investigate if hematuria persists. Will continue comprehensive care for all of patients comorbid conditions. 2. Hypoalbuminemia - Possibly due to combined effects of proteinuria, malnutrition and inflammation associated with comorbid chronic conditions. Will ensure adequate dietary protein intake and also consult building construction superintendent. 3. Hypertension - Restart suitable outpatient antihypertensive drugs when clinically appropriate. Revise regimen to ensure [id number] excellent BP control and school adjustment counselor patient on the injurious effects of uncontrolled hypertension. Nonpharmacologic measures to control hypertension like weight loss , salt restriction and exercise discussed. Importance of adherence to treatment regimen and attainment of normotension emphasized. 4. DVT prophylaxis - Lovenox 40 mg SQ q 24 hours. 5. Advance directives - Full code
--- NOTE | 2019-06-26 20:08 | PDOC ---
Attending Attestation - Resident Resident Name: Pushpa Suh - ED Attending Attestation I have performed the following: I have examined & evaluated the patient, The case was reviewed & discussed with the resident, I agree w/resident's findings & plan, Exceptions are as noted - HPI HPI: 06/26/19 20:08 Mr. Ramirez is an 88 yo M with PMH of CAD s/p PCI and stent 2017, COPD on 2L home O2, HTN, HLD presenting to ED for SOB and bilateral leg swelling since discharge from the hospital 1 month ago. Increased O2 requirement Pt notes orthopnea, SHANNON He has been compliant with Lasix 40mg daily Denies chest pain, fevers, chills, productive cough, back pain, headache, n/v/d , abdominal pain, decreased urine output. Allergies: nkda Social: occasional alcohol use - Physicial Exam PE: 06/26/19 20:07 GENERAL: The patient is in no acute distress. ENT: Ears normal, nares patent, oropharynx clear without exudates. Moist mucous membranes. NECK: Normal range of motion, supple LUNGS: Breath sounds equal, clear to auscultation bilaterally. No wheezes, and no crackles. HEART:Regular rate and rhythm, normal S1 and S2 without murmur, rub or gallop. ABDOMEN: Soft, nontender, normoactive bowel sounds. EXTREMITIES: Normal range of motion, no edema. NEUROLOGICAL: Cranial nerves II through XII grossly intact. Normal speech. No focal neurological deficits. SKIN: Warm, Dry, normal turgor, no rashes or lesions noted. - Medical Decision Making 06/26/19 20:19 Laboratory Tests 06/26/19 06/26/19 06/26/19 18:00 18:00 18:00 WBC 10.2 H Hgb 14.3 Hct 43.2 Plt Count 225 INR BUN 24.3 H Creatinine 0.9 Troponin I 0.08 H B-Natriuretic Peptide 413.4 06/26/19 18:00 WBC Hgb Hct Plt Count INR 1.12 H BUN Creatinine Troponin I B-Natriuretic Peptide EKG: NSR rate of 72 bpm, LAD, low voltage, no ST elevation or depression, t waves upright, no pathological q waves Will admit Bedside US with ? pneumothorax Will do CT chest Clinical impression: shortness of breath, repeat presentation
[2019-06-26 20:41] LABS: EPI CELLS 0.8 /HPF (0-5/HPF); HYALINE CASTS 2 /lpf (0-8); URINE APPEARANCE TURBID; URINE BACTERIA 27.2 /hpf (NEGATIVE); URINE BILIRUBIN NEGATIVE (NEGATIVE); URINE COLOR YELLOW; URINE GLUCOSE (UA) NEGATIVE (NEGATIVE); URINE KETONE TRACE (NEGATIVE); URINE LEUK ESTERASE 2+ (NEGATIVE); URINE NITRITE NEGATIVE (NEGATIVE); URINE PROTEIN 1+ (NEGATIVE); URINE WBC 1915 /hpf (0-5)
--- NOTE | 2019-06-26 21:06 | HP ---
CHIEF COMPLAINT: SOB, LE edema PCP: Hesham Cards: Dominga Irbym: Cl HISTORY OF PRESENT ILLNESS: Mr. Ramirez is an 88y/o male with HTN, HLD, COPD (2L O2 at home), CAD s/p stent 2016 who presents with increased shortness of breath and LE edema. He was discharged about 5 weeks ago where he was treated for CHF exacerbation. Per , he has been less active since then, and she has noticed swelling in his legs has gotten worse. He reports in the last week feeling as though his legs are heavy because they are so swollen. He reports shortness of breath at rest. He denies chest pain. He reports post-nasal drip that is intermittent and sometimes causes a cough. He feels weaker than usual. ER course was notable for: (1) duonebs, ASA (2) EKG negative for acute changes (3) trop 0.08 PAST MEDICAL HISTORY: HTN, HLD, COPD (2L O2 at home), CAD s/p stent 2016 PAST SURGICAL HISTORY: stent cataracts Social History: Smoking: quit smoking 40 years ago Alcohol: occasional Drugs: denies lives with Allergies No Known Drug Allergies Allergy (Verified 06/26/19 18:08) shrimp Allergy (Unknown, Uncoded 06/26/19 18:08) lip swelling HOME MEDICATIONS: Home Medications Medication Instructions Recorded Atorvastatin Ca [Lipitor] 40 mg PO HS tablet 09/04/17 Budesonide/Formeterol Fumarate 2 puff IH BID inhaler 09/04/17 [SYMBICORT 80/4.5mcg -] Escitalopram Oxalate [Lexapro -] 10 mg PO DAILY tablet 09/04/17 Ipratropium/Albuterol Sulfate 4 gm IH QID #1 aer.w.adap 09/04/17 [Combivent Respimat 20-100 Mcg] Tiotropium [place] [Spiriva] 1 puff IH DAILY inh 09/04/17 Ranitidine [Zantac -] 150 mg PO DAILY 06/01/18 Terbinafine HCl [Terbinafine] 1 applic TP AC #30 cream..g. 10/10/18 Magnesium 200 mg PO DAILY 10/17/18 Aspirin [Adult Aspirin Regimen] 81 mg PO DAILY 05/15/19 Furosemide [Lasix] 40 mg PO DAILY #30 tablet 05/20/19 Prednisone 40 mg PO DAILY #3 tablet 05/20/19 REVIEW OF SYSTEMS see HPI PHYSICAL EXAMINATION Vital Signs - 24 hr 06/26/19 06/26/19 06/26/19 18:05 18:54 19:58 Temperature 98.9 F 97.7 F Pulse Rate 81 75 Pulse Rate [ 75 Apical] Respiratory 20 22 H Rate Blood Pressure 119/54 L Blood Pressure 107/91 [Right Arm] O2 Sat by Pulse 95 97 100 Oximetry (%) GENERAL: Awake, alert, and fully oriented, in no acute distress. on 2L NC HEAD: Normal with no signs of trauma. EYES: Pupils equal, round and reactive to light, extraocular movements intact, conjunctiva clear. EARS, NOSE, THROAT: Ears normal, nares patent, oropharynx slightly erythematous. Moist mucous membranes. NECK: Normal range of motion LUNGS: Decreased breath sounds RO. diffuse expiratory wheezing. HEART: Regular rate and rhythm, no murmur ABDOMEN: Soft, nontender, not distended, normoactive bowel sounds MUSCULOSKELETAL: Normal range of motion at all joints. UPPER EXTREMITIES: Warm, well-perfused. No peripheral edema. LOWER EXTREMITIES: Warm, well-perfused. +2 pitting edema b/l to thighs NEUROLOGICAL: Cranial nerves II-XII intact. Normal speech. PSYCHIATRIC: Cooperative. Good eye contact. Appropriate mood and affect. SKIN: Warm, dry, normal turgor Laboratory Results - last 24 hr 06/26/19 06/26/19 06/26/19 18:00 18:00 18:00 WBC 10.2 H RBC 4.72 Hgb 14.3 Hct 43.2 MCV 91.4 MCH 30.2 MCHC 33.0 RDW 14.9 Plt Count 225 MPV 7.5 Absolute Neuts (auto) 8.3 H Neutrophils % 81.2 Lymphocytes % 9.2 D Monocytes % 7.7 Eosinophils % 0.7 D Basophils % 1.2 D Nucleated RBC % 0 PT with INR INR Sodium 141 Potassium 3.8 Chloride 104 Carbon Dioxide 31 Anion Gap 5 L BUN 24.3 H Creatinine 0.9 Est GFR (CKD-EPI)AfAm 89.32 Est GFR (CKD-EPI)NonAf 77.06 Random Glucose 92 Calcium 8.8 Phosphorus 3.1 Magnesium 2.1 Total Bilirubin 0.6 AST 42 H ALT 30 Alkaline Phosphatase 46 Troponin I 0.08 H B-Natriuretic Peptide 413.4 Total Protein 5.8 L Albumin 3.1 L Urine Color Urine Appearance Urine pH Ur Specific [place] Urine Protein Urine Glucose (UA) Urine Ketones Urine Blood Urine Nitrite Urine Bilirubin Urine Urobilinogen Ur Leukocyte Esterase Urine WBC (Auto) Urine Casts (Auto) U Epithel Cells (Auto) Urine Bacteria (Auto) 06/26/19 06/26/19 18:00 20:20 WBC RBC Hgb Hct MCV MCH MCHC RDW Plt Count MPV Absolute Neuts (auto) Neutrophils % Lymphocytes % Monocytes % Eosinophils % Basophils % Nucleated RBC % PT with INR 13.20 H INR 1.12 H Sodium Potassium Chloride Carbon Dioxide Anion Gap BUN Creatinine Est GFR (CKD-EPI)AfAm Est GFR (CKD-EPI)NonAf Random Glucose Calcium Phosphorus Magnesium Total Bilirubin AST ALT Alkaline Phosphatase Troponin I B-Natriuretic Peptide Total Protein Albumin Urine Color Yellow Urine Appearance Turbid Urine pH 5.0 Ur Specific [place] 1.022 Urine Protein 1+ H Urine Glucose (UA) Negative Urine Ketones Trace H Urine Blood 3+ H Urine Nitrite Negative Urine Bilirubin Negative Urine Urobilinogen 1.0 Ur Leukocyte Esterase 2+ H Urine WBC (Auto) 1915 Urine Casts (Auto) 2 U Epithel Cells (Auto) 0.8 Urine Bacteria (Auto) 27.2 ASSESSMENT/PLAN: Mr. Ramirez is an 88y/o male with HTN, HLD, COPD (2L O2 at home), CAD s/p stent 2016 who presents with increased shortness of breath and LE edema. He was discharged about 5 weeks ago where he was treated for CHF exacerbation. #shortness of breath likely 2/2 acute on chronic CHF -Lasix 40mg IV x 1 -monitor I/Os and adjust diuresis, good output after first dose -daily weights -duonebs -continue home inhalers #UTI -urine cx pending -ceftriaxone 1g daily DVT Ppx heparin FEN fluid restriction to 1L monitor labs sodium-restricted diet need to reconcile meds Visit type - Emergency Visit Emergency Visit: Yes ED Registration Date: 06/26/19 Care time: The patient presented to the Emergency Department on the above date and was hospitalized for further evaluation of their emergent condition. - New Patient This patient is new to me today: Yes Date on this admission: 06/26/19 - Critical Care Critical Care patient: No ATTENDING PHYSICIAN STATEMENT I saw and evaluated the patient. I reviewed the resident's note and discussed the case with the resident. I agree with the resident's findings and plan as documented. SUBJECTIVE: OBJECTIVE: ASSESSMENT AND PLAN:
[2019-06-26 21:21] LABS: URINE RBC 428.6 /hpf (0-4); YEAST NONE SEEN (NEGATIVE)
[2019-06-26] MEDS ORDERED: FUROSEMIDE 40 MG/4 ML INJECTABLE VIAL IVPUSH ONE (22:15)
[2019-06-26 22:35] VITALS: BMI 23.9
[2019-06-27] MEDS ORDERED: cefTRIAXone SODIUM 1 GM VIAL ONE ×2 (00:15→09:14)
[2019-06-27] MEDS ORDERED: DEXTROSE 5%-WATER - 50 ML IVPB ONE ×2 (00:15→09:15)
[2019-06-27] MEDS: CEFTRIAXONE 1 GM in DEXTROSE 5%-WATER - 50 ML IVPB SCH ×2 (00:24→09:21)
[2019-06-27] MEDS ORDERED: FUROSEMIDE 40 MG/4 ML INJECTABLE VIAL IVPUSH ONE (01:19)
[2019-06-27] MEDS: BUDESONIDE/FORMETEROL FUMARATE 80/4.5 mcg INHALER IH SCH ×3 (03:51→21:57)
[2019-06-27] MEDS: HEPARIN NA (PORCINE) 5,000 UNITS/ML 1ML VIAL SQ SCH ×3 (06:13→21:57)
[2019-06-27 06:44] LABS: BASO % 0.7 % (0-2.0); EOS % 1.7 % (0-4.5); HEMOGLOBIN 13.1 GM/dL (11.7-16.9); LYMPH % 16.6 % (8-40); MCH 30.3 pg (25.7-33.7); MCHC 33.5 g/dl (32.0-35.9); MEAN CELL VOLUME 90.4 fl (80-96); MEAN PLT VOLUME 7.8 fl (7.5-11.1); MONO % 9.9 % (3.8-10.2); NEUT % 71.1 % (42.8-82.8); PLATELET COUNT 196 K/MM3 (134-434); RBC 4.31 M/mm3 (4.00-5.60); RDW 15.1 % (11.9-15.9); WHITE BLOOD COUNT 8.5 K/mm3 (4.0-10.0)
[2019-06-27 07:10] LABS: ALBUMIN 2.7 g/dl (3.4-5.0); BILIRUBIN,TOTAL 0.5 mg/dL (0.2-1); BLOOD UREA NITROGEN 21.6 mg/dL (7-18); CREATININE 0.8 mg/dL (0.55-1.3); PHOSPHOROUS 3.2 mg/dL (2.5-4.9); POTASSIUM 3.4 mmol/L (3.5-5.1)
[2019-06-27] MEDS: ALBUTEROL SO4 2.5/IPRATROPIUM 0.5 INH SOL 3 ML VIAL.NEB. NEB SCH ×4 (07:54→20:53)
--- NOTE | 2019-06-27 08:48 | CON.CARD ---
Consult Consult Specialty:: cardio - History of Present Illness Chief Complaint: sob History of Present Illness: 88 M here with sob he has known severe copd, on O2 at home. he has known chronic venous ins which has worsened in past several months. he has never had definitive CHF clinical picture. here 05/12 with worsening sob and edema. no JVD on serial exams then, severe edema requiring IV lasix (40 qd) and TEDs stockings, with brisk diuretic response. bedscale wts then 162-166. discharged on lasix 40 po qd when got home he felt weaker than baseline, took a long time to build up strength. a few days [employer] he began feeling more sob--AT REST too. despite using usual home nebs AND USING O2 AT HOME. was complying with lasix 40 qd. legs "blew up" as well around that time. denies sodium non-compliance. never chest discomfort freq coughing up mucous with constant post-nasal drip. some wheezing--same as baseline VSs unremarkable, afebrile. saturations OK trop 0.08-0.1-0.08 diuresed briskly with IV lasix and FEELS "100% BETTER" TODAY, as if he is back to baseline and can go home PMH: CAD HTN HPL anxiety - Past Medical History Cardio/Vascular: Yes: HTN, Hyperlipdemia. No: AFIB Pulmonary: Yes: COPD, O2 Dependent, Pneumonia. No: Previously Intubated Gastrointestinal: Yes: Constipation Renal/: Yes: BPH Psych: Yes: Anxiety Musculoskeletal: Yes: Osteoarthritis ENT: Yes: Sinusitis - Past Surgical History Past Surgical History: Yes: Cataract Removal (bilateral) - Alcohol/Substance Use Hx Alcohol Use: No History of Substance Use: reports: None - Smoking History Smoking history: Former smoker Have you smoked in the past 12 months: No Aproximately how many cigarettes per day: 0 If you are a former smoker, when did you quit?: 40 years ago - Social History Usual Living Arrangement: With Spouse ADL: Independent Occupation: retired History of Recent Travel: No Home Medications - Allergies Allergies/Adverse Reactions: Allergies Allergy/AdvReac Type Severity Reaction Status Date / Time No Known Drug Allergies Allergy Verified 06/26/19 18:08 shrimp Allergy Unknown lip Uncoded 06/26/19 18:08 swelling - Home Medications Home Medications: Ambulatory Orders Atorvastatin Ca [Lipitor] 40 mg PO HS tablet 09/04/17 Budesonide/Formeterol Fumarate [SYMBICORT 80/4.5mcg -] 2 puff IH BID inhaler Escitalopram Oxalate [Lexapro -] 10 mg PO DAILY tablet 09/04/17 Ipratropium/Albuterol Sulfate [Combivent Respimat 20-100 Mcg] 4 gm IH QID #1 aer.w.adap 09/04/17 Tiotropium [place] [Spiriva] 1 puff IH DAILY inh 09/04/17 Aspirin [Adult Aspirin Regimen] 81 mg PO DAILY 05/15/19 Furosemide [Lasix] 40 mg PO DAILY #30 tablet 05/20/19 Metoprolol Succinate [Toprol Xl] 25 mg PO DAILY 06/26/19 Omeprazole 20 mg PO DAILY 06/26/19 Family Medical History Family History: Denies (no known cmp) Review of Systems - Review of Systems Constitutional: denies: Chills, Fever Eyes: denies: Eye Pain HENT: denies: Nasal Congestion Neck: denies: Stiffness Cardiovascular: denies: Palpitations Respiratory: denies: Orthopnea, PND Gastrointestinal: denies: Diarrhea, Rectal Bleeding Genitourinary: denies: Burning, Hematuria Musculoskeletal: denies: Muscle Pain Integumentary: denies: Rash Neurological: denies: Numbness, Seizure, Syncope Endocrine: denies: Excessive Sweating Hematology/Lymphatic: denies: Excessive Bleeding Vital Signs: Vital Signs Temperature 98.2 F 06/27/19 08:25 Pulse Rate 72 06/27/19 08:25 Respiratory Rate 20 06/27/19 08:25 Blood Pressure 94/48 L 06/27/19 08:25 O2 Sat by Pulse Oximetry (%) 100 06/27/19 08:25 Constitutional: Yes: Well Nourished, No Distress Eyes: No: Sclera Icterus HENT: No: Nasal Congestion Neck: No: Decreased ROM Respiratory: Yes: CTA Bilaterally (faint sounds diffusely), Wheezes (faint). No : Accessory Muscle Use, Rales Gastrointestinal: Yes: Normal Bowel Sounds. No: Distention, Hepatomegaly, Palpable Mass, Tenderness Cardiovascular: Yes: Regular Rate and Rhythm JVD: No Carotid Bruit: No PMI: Non-Displaced Heart Sounds: Yes: S1, S2. No: Gallop Murmur: No: Systolic Murmur, Diastolic Murmur Musculoskeletal: Yes: Other (No kyphosis) Extremities: No: Cool, Cyanosis Edema: Yes (2+ pretibs) Peripheral Pulses: 2+ Left Carotid, 2+ Right Carotid, 2+ Left Doralis Pedis, 2+ Right Dorsalis Pedis Integumentary: No: Jaundice Neurological: Yes: Alert, Oriented (x3) Psychiatric: No: Agitated - Other Data Labs, Other Data: CBC, BMP 06/27/19 05:34 06/27/19 05:34 INR, PTT INR 1.12 (0.83-1.09) H 06/26/19 18:00 Troponin, BNP 06/26/19 06/26/19 06/26/19 18:00 18:00 22:50 Troponin I 0.08 H 0.10 H B-Natriuretic Peptide 413.4 06/27/19 03:19 Troponin I 0.08 H B-Natriuretic Peptide Troponin, BNP 06/26/19 06/26/19 06/26/19 18:00 18:00 22:50 Troponin I 0.08 H 0.10 H B-Natriuretic Peptide 413.4 06/27/19 03:19 Troponin I 0.08 H B-Natriuretic Peptide Assessment/Plan Echo 05/12: nl LV/RV. nl valve fxn, no RVSP Stress Echo with definity contrast 06/2017: 1.20 min on rodney protocol. MPHR 115 %. Non ischemic ekg changes. tds echo images. no inducible ischemia (lack of LV augmentation noted). pear rvsp at least 69. [facility] 05/2017: subtotal OM1--Xience. remainder unchanged: 30-50% dRCA, mild pLCX, 50-60% LPL1. EDP 10, nl EF CT chest: clear lungs, no effusion. nodules (spiculated) unchanged. severe copd changes ECG: unchanged vs 05/16: NSR, L axis, q's v1/v2, no ST-T SOB, leg swelling, advanced COPD, venous insufficiency: -wt is stable from prior discharge weight. CT chest no pulm edema or effusions. BNP 400 (range 120s-500). no JVD -despite this, the clinical picture is strongly suggestive of increased left side filing pressures (leg swelling likely more venous insuff in absence of JVD on exam), since he improved in his breathing dramatically with only change being brisk diuresis (lasix 40 IVP x 1) -BP down 90s systolic, sob resolved. labs stable. start lasix 80 po daily -if BP stable and sob remains improved, plan d/c tomorrow on po lasix -copd tx per primary team, doubt a.e. NSTEMI s/p PCI 2016, residual nonobstr dz as above: -trop indeterminate range (low end), flat trend, not c/w ACS (he has had these values before) -ecg non-ischemic -cont home aspirin, statin -stop BB, while observe if helps his copd sx's HTN: -bp's soft here -bb held
[2019-06-27] MEDS: ASPIRIN COATED 81 MG TABLET.EC PO SCH (09:21)
[2019-06-27] MEDS ORDERED: POTASSIUM CHLORIDE ORAL LIQUID 20 MEQ/15 ML PO ONE (10:20)
--- NOTE | 2019-06-27 12:38 | PN ---
Progress Note (short form) - Note Progress Note: Patient is a 88yom with a PMHx of CAD (s/p stent in 2017), COPD (on 2L home O2) , Chronic lung mass, HTN and HLD presented to ER for SOB with bilateral leg swelling. Patient worried his lower extremities with swelling with blisters. at bedside. Vital Signs Temperature 98.2 F 06/27/19 08:25 Pulse Rate 72 06/27/19 08:25 Respiratory Rate 20 06/27/19 08:25 Blood Pressure 94/48 L 06/27/19 08:25 O2 Sat by Pulse Oximetry (%) 100 06/27/19 08:25 GENERAL: The patient is awake, alert, and fully oriented, in no acute distress. HEAD: Normal with no signs of trauma. EYES: PERRL, extraocular movements intact, sclera anicteric, conjunctiva clear. ENT: Ears normal, oropharynx clear without exudates, moist mucous membranes. NECK: Trachea midline, full range of motion, supple. LUNGS: Breath sounds equal, clear to auscultation bilaterally, no wheezes, no crackles, no accessory muscle use. HEART: Regular rate and rhythm, S1, S2 without murmur, rub or gallop. ABDOMEN: Soft, nontender, nondistended, normoactive bowel sounds, no guarding, no rebound, no hepatosplenomegaly, no masses. EXTREMITIES: 2+ pulses, warm, well-perfused, no edema. NEUROLOGICAL: Cranial nerves II through XII grossly intact. Normal speech, gait not observed. PSYCH: Normal mood, normal affect. SKIN: Warm, dry, normal turgor, no rashes or lesions noted CBCD WBC 8.5 K/mm3 (4.0-10.0) 06/27/19 05:34 RBC 4.31 M/mm3 (4.00-5.60) 06/27/19 05:34 Hgb 13.1 GM/dL (11.7-16.9) 06/27/19 05:34 Hct 39.0 % (35.4-49) 06/27/19 05:34 MCV 90.4 fl (80-96) 06/27/19 05:34 MCHC 33.5 g/dl (32.0-35.9) 06/27/19 05:34 RDW 15.1 % (11.9-15.9) 06/27/19 05:34 Plt Count 196 K/MM3 (134-434) 06/27/19 05:34 MPV 7.8 fl (7.5-11.1) 06/27/19 05:34 CMP Sodium 142 mmol/L (136-145) 06/27/19 05:34 Potassium 3.4 mmol/L (3.5-5.1) L 06/27/19 05:34 Chloride 106 mmol/L (98-107) 06/27/19 05:34 Carbon Dioxide 30 mmol/L (21-32) 06/27/19 05:34 Anion Gap 6 MMOL/L (8-16) L 06/27/19 05:34 BUN 21.6 mg/dL (7-18) H 06/27/19 05:34 Creatinine 0.8 mg/dL (0.55-1.3) 06/27/19 05:34 Random Glucose 76 mg/dL (74-106) 06/27/19 05:34 Calcium 8.0 mg/dL (8.5-10.1) L 06/27/19 05:34 Total Bilirubin 0.5 mg/dL (0.2-1) 06/27/19 05:34 AST 33 U/L (15-37) 06/27/19 05:34 ALT 25 U/L (13-61) 06/27/19 05:34 Alkaline Phosphatase 39 U/L (45-117) L 06/27/19 05:34 Total Protein 5.0 g/dl (6.4-8.2) L 06/27/19 05:34 Albumin 2.7 g/dl (3.4-5.0) L 06/27/19 05:34 CARDIAC ENZYMES Troponin I 0.08 ng/ml (0.00-0.05) H 06/27/19 03:19 Current Medications Generic Name Dose Route Start Last Admin Trade Name Freq PRN Reason Stop Dose Admin Albuterol/Ipratropium 1 amp 06/27/19 08:00 06/27/19 12:05 Duoneb - NEB 1 amp RQID QUETA Administration Aspirin 81 mg 06/27/19 10:00 06/27/19 09:21 Ecotrin - PO 81 mg DAILY QUETA Administration Atorvastatin Calcium 40 mg 06/27/19 22:00 Lipitor - PO HS QUETA Budesonide/Formoterol Fumarate 2 puff 06/26/19 23:00 06/27/19 09:21 Symbicort 80/4.5mcg - IH 2 puff BID QUETA Administration Furosemide 80 mg 06/27/19 13:00 Lasix - PO DAILY QUETA Heparin Sodium (Porcine) 5,000 unit 06/27/19 06:00 06/27/19 06:13 Heparin - SQ 5,000 unit TID QUETA Administration Ceftriaxone Sodium 1 gm/ 50 mls @ 100 mls/hr 06/26/19 23:45 06/27/19 09:21 Dextrose IVPB 100 mls/hr DAILY QUETA Administration Home Medications Medication Instructions Recorded Atorvastatin Ca [Lipitor] 40 mg PO HS tablet 09/04/17 Budesonide/Formeterol Fumarate 2 puff IH BID inhaler 09/04/17 [SYMBICORT 80/4.5mcg -] Escitalopram Oxalate [Lexapro -] 10 mg PO DAILY tablet 09/04/17 Ipratropium/Albuterol Sulfate 4 gm IH QID #1 aer.w.adap 09/04/17 [Combivent Respimat 20-100 Mcg] Tiotropium [place] [Spiriva] 1 puff IH DAILY inh 09/04/17 Aspirin [Adult Aspirin Regimen] 81 mg PO DAILY 05/15/19 Furosemide [Lasix] 40 mg PO DAILY #30 tablet 05/20/19 Metoprolol Succinate [Toprol Xl] 25 mg PO DAILY 06/26/19 Omeprazole 20 mg PO DAILY 06/26/19 Echo 05/12: nl LV/RV. nl valve fxn, no RVSP As per cadio notes: Stress Echo with definity contrast 06/2017: 1.20 min on rodney protocol. MPHR 115%. Non ischemic ekg changes. no inducible ischemia . pear rvsp at least 69. CT chest: clear lungs, no effusion. nodules (spiculated) unchanged. severe copd changes ECG: unchanged vs 05/16: NSR, L axis, q's v1/v2, no ST-T Microbiology 06/26/19 20:20 Urine - Urine Clean Catch Urine Culture - Final NO GROWTH OBTAINED Assessment and plan: Patient is a 88yom with a PMHx of CAD (s/p stent in 2017), COPD (on 2L home O2) , Chronic lung mass, HTN and HLD presented to ER for SOB with bilateral leg swelling. Patient worried his lower extremities with swelling with blisters. #SOB, leg swelling, with venous stasis : on Lasix 80mg Iv as per cardio, elevate LEs. #advanced COPD:On Rocephin IV, symbicort, duoneb continue #UTI: on rocephin iv daily #NSTEMI s/p PCI 2016, residual nonobstr dz as above:continue home meds. aspirin/ BB/lipitor # HTN:continue home meds. DVT px: heparin Visit type - Emergency Visit Emergency Visit: Yes ED Registration Date: 06/26/19 Care time: The patient presented to the Emergency Department on the above date and was hospitalized for further evaluation of their emergent condition. - New Patient This patient is new to me today: Yes Date on this admission: 06/28/19 - Critical Care Critical Care patient: No - Discharge Referral Referred to [facility] Med P.C.: No
[2019-06-27] MEDS: FUROSEMIDE 40 MG TABLET (FP) PO SCH (13:16)
[2019-06-27] MEDS ORDERED: ATORVASTATIN CA 40 MG TABLET (FP) PO SCH (22:00)
--- NOTE | 2019-06-27 23:16 | EKG ---
Test Reason : Blood Pressure : / mmHG Vent. Rate : 068 BPM Atrial Rate : 068 BPM P-R Int : 164 ms QRS Dur : 086 ms QT Int : 452 ms P-R-T Axes : 049 -54 047 degrees QTc Int : 480 ms SINUS RHYTHM WITH OCCASIONAL PREMATURE VENTRICULAR COMPLEXES LEFT AXIS DEVIATION LOW VOLTAGE QRS SEPTAL INFARCT (CITED ON OR BEFORE 14-MAY-2019) ABNORMAL ECG WHEN COMPARED WITH ECG OF 26-JUN-2019 18:21, PREMATURE VENTRICULAR COMPLEXES ARE NOW PRESENT Confirmed by BRIAN CHOE MD ([id number]) on 06/27/2019 11:16:06 PM Referred By: NEIDA Confirmed By:BRIAN CHOE MD
--- NOTE | 2019-06-27 23:19 | EKG ---
Test Reason : Blood Pressure : / mmHG Vent. Rate : 072 BPM Atrial Rate : 072 BPM P-R Int : 164 ms QRS Dur : 082 ms QT Int : 430 ms P-R-T Axes : 061 -34 065 degrees QTc Int : 470 ms NORMAL SINUS RHYTHM LEFT AXIS DEVIATION LOW VOLTAGE QRS SEPTAL INFARCT (CITED ON OR BEFORE 14-MAY-2019) ABNORMAL ECG WHEN COMPARED WITH ECG OF 16-MAY-2019 10:24, PREMATURE VENTRICULAR COMPLEXES ARE NO LONGER PRESENT PREMATURE ATRIAL COMPLEXES ARE NO LONGER PRESENT Confirmed by BRIAN CHOE MD ([id number]) on 06/27/2019 11:19:15 PM Referred By: Confirmed By:BRIAN CHOE MD
[2019-06-28 05:51] VITALS: TEMP 97.7
[2019-06-28] MEDS: HEPARIN NA (PORCINE) 5,000 UNITS/ML 1ML VIAL SQ SCH ×2 (05:53→13:43)
[2019-06-28] MEDS: ALBUTEROL SO4 2.5/IPRATROPIUM 0.5 INH SOL 3 ML VIAL.NEB. NEB SCH ×2 (07:30→11:20)
[2019-06-28] MEDS ORDERED: cefTRIAXone SODIUM 1 GM VIAL ONE ×2 (07:32→10:26)
[2019-06-28] MEDS ORDERED: DEXTROSE 5%-WATER - 50 ML IVPB ONE (07:32)
[2019-06-28 09:31] VITALS: BP 127/53; PULSE 76
--- NOTE | 2019-06-28 09:45 | PN ---
Progress Note, Physician Chief Complaint: sob History of Present Illness: breathing remains much better. feels at his longstanding baseline swelling better, not resolved no presyncope, cp, palp - Current Medication List Current Medications: Active Medications Albuterol/Ipratropium (Duoneb -) 1 amp NEB RQID [facility] Last Admin: 06/28/19 07:30 Dose: 1 amp Aspirin (Ecotrin -) 81 mg PO DAILY [facility] Last Admin: 06/27/19 09:21 Dose: 81 mg Atorvastatin Calcium (Lipitor -) 40 mg PO HS [facility] Last Admin: 06/27/19 21:57 Dose: 40 mg Budesonide/Formoterol Fumarate (Symbicort 80/4.5mcg -) 2 puff IH BID [facility] Last Admin: 06/27/19 21:57 Dose: 2 puff Escitalopram Oxalate (Lexapro -) 10 mg PO DAILY [facility] Furosemide (Lasix -) 80 mg PO DAILY [facility] Last Admin: 06/27/19 13:16 Dose: Not Given Heparin Sodium (Porcine) (Heparin -) 5,000 unit SQ TID [facility] Last Admin: 06/28/19 05:53 Dose: 5,000 unit Ceftriaxone Sodium 1 gm/ (Dextrose) 50 mls @ 100 mls/hr IVPB DAILY [facility] Last Admin: 06/27/19 09:21 Dose: 100 mls/hr Tiotropium [place] (Spiriva Respimat) 2 puff IH DAILY [facility] - Objective Vital Signs: Vital Signs Temperature 97.7 F 06/28/19 05:48 Pulse Rate 76 06/28/19 09:30 Respiratory Rate 18 06/28/19 09:30 Blood Pressure 127/53 L 06/28/19 09:30 O2 Sat by Pulse Oximetry (%) 98 06/28/19 09:00 Constitutional: Yes: Well Nourished, No Distress, Calm Cardiovascular: Yes: Regular Rate and Rhythm (decr intensity), JVD (5cm), S1, S2. No: Gallop, Murmur Respiratory: Yes: Regular, CTA Bilaterally (decr intensity). No: Accessory Muscle Use, Rales Extremities: No: Cold Edema: Yes (1+ pretib) Neurological: Yes: Alert, Oriented Psychiatric: No: Agitated Labs: CBC, BMP 06/27/19 05:34 06/27/19 05:34 INR, PTT INR 1.12 (0.83-1.09) H 06/26/19 18:00 Assessment/Plan Echo 05/12: nl LV/RV. nl valve fxn, no RVSP Stress Echo with definity contrast 06/2017: 1.20 min on rodney protocol. MPHR 115 %. Non ischemic ekg changes. tds echo images. no inducible ischemia (lack of LV augmentation noted). pear rvsp at least 69. [facility] 05/2017: subtotal OM1--Xience. remainder unchanged: 30-50% dRCA, mild pLCX, 50-60% LPL1. EDP 10, nl EF CT chest: clear lungs, no effusion. nodules (spiculated) unchanged. severe copd changes ECG: unchanged vs 05/16: NSR, L axis, q's v1/v2, no ST-T tele: SR/sinus tach, artifact SOB, leg swelling, advanced COPD, venous insufficiency: -wt is stable from prior discharge weight. CT chest no pulm edema or effusions. BNP 400 (range 120s-500). no JVD -despite this, the clinical picture is strongly suggestive of increased left side filing pressures (leg swelling likely more venous insuff in absence of JVD on exam), since he improved in his breathing dramatically with only change being brisk diuresis (lasix 40 IVP x 1) -BP down 90s systolic, sob resolved. labs stable. started lasix 80 po daily as of 06/27 -urinating a lot with lasix PO--cont 80 qd -office f/u 7-10 days NSTEMI s/p PCI 2016, residual nonobstr dz as above: -trop indeterminate range (low end), flat trend, not c/w ACS (he has had these values before) -ecg non-ischemic -cont home aspirin, statin -stop BB, while observe if helps his copd sx's HTN: -bp's soft here -bb held OK FOR D/C FROM CV POV
[2019-06-28] MEDS ORDERED: TIOTROPIUM BROMIDE 2.5 MCG (SPIRIVA) RESPIMAT INHALER IH SCH (10:00)
[2019-06-28] MEDS ORDERED: ESCITALOPRAM OXALATE 10 MG TABLET (FP) PO SCH (10:00)
[2019-06-28] MEDS: ASPIRIN COATED 81 MG TABLET.EC PO SCH (10:18)
[2019-06-28] MEDS: FUROSEMIDE 40 MG TABLET (FP) PO SCH (10:18)
[2019-06-28] MEDS: BUDESONIDE/FORMETEROL FUMARATE 80/4.5 mcg INHALER IH SCH (10:19)
[2019-06-28] MEDS: CEFTRIAXONE 1 GM in DEXTROSE 5%-WATER - 50 ML IVPB SCH (11:10)
[2019-06-28 11:39] LABS: BLOOD UREA NITROGEN 18.5 mg/dL (7-18); CALCIUM 8.5 mg/dL (8.5-10.1); CREATININE 0.8 mg/dL (0.55-1.3); POTASSIUM 4.1 mmol/L (3.5-5.1)
--- NOTE | 2019-06-28 14:30 | DS ---
Physical Exam: SUBJECTIVE: Patient seen and examined OBJECTIVE: Vital Signs Period Temp Pulse Resp BP Sys/Donovan Pulse Ox Last 24 Hr 97.6 F-97.8 F 75-88 16-20 92-159/45-83 98-100 PHYSICAL EXAM GENERAL: The patient is awake, alert, and fully oriented, in no acute distress. HEAD: Normal with no signs of trauma. EYES: PERRL, extraocular movements intact, sclera anicteric, conjunctiva clear. ENT: Ears normal, nares patent, oropharynx clear without exudates, moist mucous membranes. NECK: Trachea midline, full range of motion, supple. LUNGS: Breath sounds equal, clear to auscultation bilaterally, no wheezes, no crackles, no accessory muscle use. HEART: Regular rate and rhythm, S1, S2 without murmur, rub or gallop. ABDOMEN: Soft, nontender, nondistended, normoactive bowel sounds, no guarding, no rebound, no hepatosplenomegaly, no masses. EXTREMITIES: 2+ pulses, warm, well-perfused, no edema. NEUROLOGICAL: Cranial nerves II through XII grossly intact. Normal speech, gait not observed. PSYCH: Normal mood, normal affect. SKIN: Warm, dry, normal turgor, no rashes or lesions noted. LABS Laboratory Results - last 24 hr 06/28/19 10:40 Sodium 142 Potassium 4.1 Chloride 106 Carbon Dioxide 32 Anion Gap 5 L BUN 18.5 H Creatinine 0.8 Est GFR (CKD-EPI)AfAm 93.75 Est GFR (CKD-EPI)NonAf 80.89 Random Glucose 93 Calcium 8.5 HOSPITAL COURSE: Date of Admission:06/26/19 Date of Discharge: 06/28/19 Discharge Summary Problems reviewed: Yes Reason For Visit: SOB Current Active Problems Elevated troponin I level (Acute) SOB (shortness of breath) (Acute) Condition: Stable - Instructions Diet, Activity, Other Instructions: YOUR VISIT You came to the hospital because you were feeling short of breath. You were admitted to the hospital for care of your chronic medical conditions. While here you were seen by cardiology. You were also found to have a urinary tract infection and will need to continue taking antibiotics as described below. You are now stable and may return home. MEDICATIONS Please continue to take your medications as prescribed. NEW MEDICATION You will now need to take Lasix 80 mg by mouth every day. Cephalexin 500 mg by mouth twice a day for 5 more days. ADDITIONAL CARE Please make an appointment to see your primary care provider, Dr. Dahl, 1 week from today. Please make an appointment to see a lpn in 1 week. A referral has to Dr. Orr has been provided. ADDITIONAL INFORMATION Please call 911 or come directly to the emergency department if you experience unusual headache, vision change, shortness of breath, chest pain, numbness, tingling, loss of alertness/awareness, loss of function, unusual bleeding or any alarming symptoms. Referrals: Nile Dahl MD [Primary Care Provider] - 1 Week Everett Orr MD [Staff Physician] - - Home Medications Comprehensive Discharge Medication List: Ambulatory Orders Atorvastatin Ca [Lipitor] 40 mg PO HS tablet 09/04/17 Budesonide/Formeterol Fumarate [SYMBICORT 80/4.5mcg -] 2 puff IH BID inhaler Escitalopram Oxalate [Lexapro -] 10 mg PO DAILY tablet 09/04/17 Ipratropium/Albuterol Sulfate [Combivent Respimat 20-100 Mcg] 4 gm IH QID #1 aer.w.adap 09/04/17 Tiotropium [place] [Spiriva] 1 puff IH DAILY inh 09/04/17 Aspirin [Adult Aspirin Regimen] 81 mg PO DAILY 05/15/19 Metoprolol Succinate [Toprol Xl] 25 mg PO DAILY 06/26/19 Omeprazole 20 mg PO DAILY 06/26/19 Atorvastatin Ca [Lipitor] 40 mg PO HS tablet 06/28/19 Cefuroxime Axetil [Ceftin -] 500 mg PO Q12H #10 tablet 06/28/19 Furosemide [Lasix -] 80 mg PO DAILY #30 tablet 06/28/19 ATTENDING PHYSICIAN STATEMENT I saw and evaluated the patient. I reviewed the resident's note and discussed the case with the resident. I agree with the resident's findings and plan as documented. SUBJECTIVE: OBJECTIVE: ASSESSMENT AND PLAN:
--- NOTE | 2019-06-28 15:33 | PN ---
Teaching Attending Note Name of Resident: Tank Barakat ATTENDING PHYSICIAN STATEMENT I saw and evaluated the patient. I reviewed the resident's note and discussed the case with the resident. I agree with the resident's findings and plan as documented. SUBJECTIVE: Patient is feeling better with no acute distress. Vital Signs Temperature 97.7 F 06/28/19 05:48 Pulse Rate 76 06/28/19 09:30 Respiratory Rate 18 06/28/19 09:30 Blood Pressure 127/53 L 06/28/19 09:30 O2 Sat by Pulse Oximetry (%) 98 06/28/19 09:00 GENERAL: The patient is awake, alert, and fully oriented, in no acute distress. HEAD: Normal with no signs of trauma. EYES: PERRL, extraocular movements intact, sclera anicteric, conjunctiva clear. ENT: Ears normal, oropharynx clear without exudates, moist mucous membranes. NECK: Trachea midline, full range of motion, supple. No JVD LUNGS: decreased BS BL, no wheezes, no crackles, no accessory muscle use. HEART: Regular rate and rhythm, S1, S2 without murmur, rub or gallop. ABDOMEN: Soft, nontender, nondistended, normoactive bowel sounds, no guarding, no rebound, no hepatosplenomegaly, no masses. EXTREMITIES: 2+ pulses, warm, well-perfused, venous stasis with lower extremity blisters. Wrapped the lower extremities with cal wrap. NEUROLOGICAL: Cranial nerves II through XII grossly intact. Normal speech, gait not observed. PSYCH: Normal mood, normal affect. SKIN: Warm, dry, normal turgor, no rashes or lesions noted CBCD WBC 8.5 K/mm3 (4.0-10.0) 06/27/19 05:34 RBC 4.31 M/mm3 (4.00-5.60) 06/27/19 05:34 Hgb 13.1 GM/dL (11.7-16.9) 06/27/19 05:34 Hct 39.0 % (35.4-49) 06/27/19 05:34 MCV 90.4 fl (80-96) 06/27/19 05:34 MCHC 33.5 g/dl (32.0-35.9) 06/27/19 05:34 RDW 15.1 % (11.9-15.9) 06/27/19 05:34 Plt Count 196 K/MM3 (134-434) 06/27/19 05:34 MPV 7.8 fl (7.5-11.1) 06/27/19 05:34 CMP Sodium 142 mmol/L (136-145) 06/27/19 05:34 Potassium 3.4 mmol/L (3.5-5.1) L 06/27/19 05:34 Chloride 106 mmol/L (98-107) 06/27/19 05:34 Carbon Dioxide 30 mmol/L (21-32) 06/27/19 05:34 Anion Gap 6 MMOL/L (8-16) L 06/27/19 05:34 BUN 21.6 mg/dL (7-18) H 06/27/19 05:34 Creatinine 0.8 mg/dL (0.55-1.3) 06/27/19 05:34 Random Glucose 76 mg/dL (74-106) 06/27/19 05:34 Calcium 8.0 mg/dL (8.5-10.1) L 06/27/19 05:34 Total Bilirubin 0.5 mg/dL (0.2-1) 06/27/19 05:34 AST 33 U/L (15-37) 06/27/19 05:34 ALT 25 U/L (13-61) 06/27/19 05:34 Alkaline Phosphatase 39 U/L (45-117) L 06/27/19 05:34 Total Protein 5.0 g/dl (6.4-8.2) L 06/27/19 05:34 Albumin 2.7 g/dl (3.4-5.0) L 06/27/19 05:34 CARDIAC ENZYMES Troponin I 0.08 ng/ml (0.00-0.05) H 06/27/19 03:19 Current Medications Generic Name Dose Route Start Last Admin Trade Name Joey PRN Reason Stop Dose Admin Albuterol/Ipratropium 1 amp 06/27/19 08:00 06/27/19 12:05 Duoneb - NEB 1 amp RQID QUETA Administration Aspirin 81 mg 06/27/19 10:00 06/27/19 09:21 Ecotrin - PO 81 mg DAILY QUETA Administration Atorvastatin Calcium 40 mg 06/27/19 22:00 Lipitor - PO HS QUETA Budesonide/Formoterol Fumarate 2 puff 06/26/19 23:00 06/27/19 09:21 Symbicort 80/4.5mcg - IH 2 puff BID QUETA Administration Furosemide 80 mg 06/27/19 13:00 Lasix - PO DAILY QUETA Heparin Sodium (Porcine) 5,000 unit 06/27/19 06:00 06/27/19 06:13 Heparin - SQ 5,000 unit TID QUETA Administration Ceftriaxone Sodium 1 gm/ 50 mls @ 100 mls/hr 06/26/19 23:45 06/27/19 09:21 Dextrose IVPB 100 mls/hr DAILY QUETA Administration Home Medications Medication Instructions Recorded Atorvastatin Ca [Lipitor] 40 mg PO HS tablet 09/04/17 Budesonide/Formeterol Fumarate 2 puff IH BID inhaler 09/04/17 [SYMBICORT 80/4.5mcg -] Escitalopram Oxalate [Lexapro -] 10 mg PO DAILY tablet 09/04/17 Ipratropium/Albuterol Sulfate 4 gm IH QID #1 aer.w.adap 09/04/17 [Combivent Respimat 20-100 Mcg] Tiotropium [place] [Spiriva] 1 puff IH DAILY inh 09/04/17 Aspirin [Adult Aspirin Regimen] 81 mg PO DAILY 05/15/19 Furosemide [Lasix] 40 mg PO DAILY #30 tablet 05/20/19 Metoprolol Succinate [Toprol Xl] 25 mg PO DAILY 06/26/19 Omeprazole 20 mg PO DAILY 06/26/19 Echo 05/12: nl LV/RV. nl valve fxn, no RVSP As per cadio notes: Stress Echo with definity contrast 06/2017: 1.20 min on rodney protocol. MPHR 115%. Non ischemic ekg changes. no inducible ischemia . pear rvsp at least 69. CT chest: clear lungs, no effusion. nodules (spiculated) unchanged. severe copd changes ECG: unchanged vs 05/16: NSR, L axis, q's v1/v2, no ST-T Microbiology 06/26/19 20:20 Urine - Urine Clean Catch Urine Culture - Final NO GROWTH OBTAINED Assessment and plan: Patient is a 88yom with a PMHx of CAD (s/p stent in 2017), COPD (on 2L home O2) , Chronic lung mass, HTN and HLD presented to ER for SOB with bilateral leg swelling. Patient worried his lower extremities with swelling with blisters. #SOB, leg swelling, with venous stasis : on Lasix 80mg Iv as per cardio, elevate LEs. wrapped the legs with cal bandages and applied xerofoam #advanced COPD/with acute bronchitis :s/p Rocephin IV, will dc him with ceftin 500mg x 5 days, symbicort, duoneb continue #UTI:s/p rocephin iv, will dc him for 5 days of ceftin #NSTEMI s/p PCI 2017, residual nonobstr dz as above:continue home meds. aspirin/ BB/lipitor #HTN:continue home meds. DVT px: heparin dc patient home.
== END 2019-06-28 14:40 | disposition home or self-care (01) | DRG 191 ==
LOC: JER 17:39 → JERBED 19:37 → J4W 22:20
PROVIDERS: ADMIT Internal Medicine; ATTEND Internal Medicine
DX: J44.0 Chronic obstructive pulmonary disease with (acute) lower respiratory infection (principal); N39.0 Urinary tract infection, site not specified; E46 Unspecified protein-calorie malnutrition; I50.32 Chronic diastolic (congestive) heart failure; I11.0 Hypertensive heart disease with heart failure; J44.1 Chronic obstructive pulmonary disease with (acute) exacerbation; J20.9 Acute bronchitis, unspecified; E78.5 Hyperlipidemia, unspecified; I25.10 Atherosclerotic heart disease of native coronary artery without angina pectoris; Z95.5 Presence of coronary angioplasty implant and graft; Z68.23 Body mass index [BMI] 23.0-23.9, adult; I87.8 Other specified disorders of veins; E88.09 Other disorders of plasma-protein metabolism, not elsewhere classified
CPT/HCPCS: 36415; 71045-TC-FY; 71250-TC; 80048; 80053; 81003; 83735; 83880; 84100; 84484; 85025; 85610; 87086; 93005; 93010; 94640; 99285-25; J1644

== ENCOUNTER 2019-07-27 13:02 | Inpatient (IN) | payer OTHER, BC ==
--- NOTE | 2019-07-27 14:13 | PDOC ---
History of Present Illness - General Chief Complaint: Respiratory Stated Complaint: DIFFICULTY BREATHING Time Seen by Provider: 07/27/19 14:06 - History of Present Illness Initial Comments: 07/27/19 14:12 HPI: 88 y/o M with HTN, HLD, COPD (2L O2 at home), CAD s/p stent 2017 presenting with 3-4 days of SOB. SOB present at baseline requiring 2L, however, has been progessively worsening on exertion and requiring increased O2 demands. Has been requiring O2 more consistently during the day as opposed to just at night. He also reports generalized weakness and feel fatigued. He reports a cough with white sputum that started 3 days ago but yesterday he noted increased green/ yellow sputum productiopn. In addition, he reports increased dark urine with burning on urination. Denies fever, chest pain, chills, abd pain, n/v, diaphoresis, syncope, falls. PMHx: as noted above ROS: as noted SHx: Denies tobacco use; no alcohol use; no rec drugs Allergies: NKDA PCP: Dr Dahl; Cardio: Dr Orr ROS: GENERAL/CONSTITUTIONAL: No fever or chills. +generalized weakness. HEAD, EYES, EARS, NOSE AND THROAT: No change in vision. No ear pain or discharge. No sore throat. CARDIOVASCULAR: No chest pain; +shortness of breath RESPIRATORY: +cough, wheezing, or hemoptysis. GASTROINTESTINAL: No nausea, vomiting, diarrhea or constipation. GENITOURINARY: +dysuria, frequency, or change in urination. MUSCULOSKELETAL: No joint or muscle swelling or pain. No neck or back pain. SKIN: No rash NEUROLOGIC: No headache, vertigo, loss of consciousness, or change in strength/ sensation. ENDOCRINE: No increased thirst. No abnormal weight change HEMATOLOGIC/LYMPHATIC: No anemia, easy bleeding, or history of blood clots. ALLERGIC/IMMUNOLOGIC: No hives or skin allergy. PE: GENERAL: Awake, alert, and fully oriented, no acute distress HEAD: No signs of trauma, normocephalic, atraumatic EYES: EOMI, sclera anicteric, conjunctiva clear ENT: Auricles normal inspection, hearing grossly normal, nares patent, oropharynx clear without exudates. Moist mucosa NECK: Normal ROM, no lymphadenopathy LUNGS: No increased work of breathing, symmetrical chest rise, Left lung with middle and lower lobe wheezing HEART: Regular rate, regular rhythm, normal S1 and S2, no murmur, peripheral pulses 2+ and equal bilaterally. 2+ BL LE edema ABDOMEN: Soft, nondistended, nontender, normoactive bowel sounds. No guarding, no rebound. No masses. No CVAT MUSCULOSKELETAL: FROM NEUROLOGICAL: Cranial nerves II through XII grossly intact. Normal speech, normal gait, no focal sensorimotor deficits SKIN: Warm, Dry, normal turgor, no rashes or lesions noted Past History - Past Medical History Allergies/Adverse Reactions: Allergies Allergy/AdvReac Type Severity Reaction Status Date / Time No Known Drug Allergies Allergy Verified 06/26/19 18:08 shrimp Allergy Unknown lip Uncoded 06/26/19 18:08 swelling Home Medications: Ambulatory Orders Atorvastatin Ca [Lipitor] 40 mg PO HS tablet 09/04/17 Budesonide/Formeterol Fumarate [SYMBICORT 80/4.5mcg -] 2 puff IH BID inhaler Escitalopram Oxalate [Lexapro -] 10 mg PO DAILY tablet 09/04/17 Ipratropium/Albuterol Sulfate [Combivent Respimat 20-100 Mcg] 4 gm IH QID #1 aer.w.adap 09/04/17 Tiotropium [place] [Spiriva] 1 puff IH DAILY inh 09/04/17 Aspirin [Adult Aspirin Regimen] 81 mg PO DAILY 05/15/19 Metoprolol Succinate [Toprol Xl] 25 mg PO DAILY 06/26/19 Omeprazole 20 mg PO DAILY 06/26/19 Furosemide [Lasix -] 80 mg PO DAILY #30 tablet 06/28/19 Famotidine [Pepcid -] 40 mg PO DAILY 07/27/19 Anemia: No Asthma: No Cancer: No Cardiac Disorders: Yes (Chest Pain, MS with stents) CVA: No COPD: Yes CHF: No DVT: No Dementia: No Diabetes: No Dialysis: No GI Disorders: No Disorders: No HTN: Yes Hypercholesterolemia: Yes Kidney Stones: No Liver Disease: No Psychiatric Problems: No Seizures: No Thyroid Disease: No Lung CA: No - Surgical History Abdominal Surgery: No Appendectomy: No Cardiac Surgery: Yes (Cardiac Cath 2014, stents 2016) Cholecystectomy: No Gastric Stapling: No GI Surgery: No Lung Surgery: No Neurologic Surgery: No Orthopedic Surgery: No - Immunization History Td Vaccination: Yes TDAP Vaccination: Yes Immunization Up to Date: Yes - Psycho Social/Smoking Cessation Hx Smoking Status: Yes Smoking History: Current some day smoker Have you smoked in the past 12 months: No Number of Cigarettes Smoked Daily: 0 If you are a former smoker, when did you quit?: 40 years ago Cigars Per Day: 0 Information on smoking cessation initiated: No Hx Alcohol Use: No Drug/Substance Use Hx: No Substance Use Type: None Hx Substance Use Treatment: No *Physical Exam - Vital Signs Last Vital Signs Temp Pulse Resp BP Pulse Ox 99.5 F 74 20 105/64 97 07/27/19 13:22 07/27/19 13:22 07/27/19 13:22 07/27/19 13:22 07/27/19 13:22 ED Treatment Course - LABORATORY CBC & Chemistry Diagram: 07/27/19 14:20 07/27/19 14:20 Medical Decision Making - Medical Decision Making 07/27/19 16:10 88 y/o M with HTN, HLD, COPD (2L O2 at home), CAD s/p stent 2016 presenting with 3-4 days of SOB associated with increased O2 requirements, generalized weakness, and cough. VSS, AF. PE with left lung wheeze and 2+LE edema -cbc, cmp, cardiac profile, bnp, ua, ekg, cxr, lactate, bcx, ucx -2L NC 07/27/19 16:24 ua concerning for uti will give abs for pna given COPD will also treat uti steroids, nebs for possible copd exac azithro and ceftr will reassess 07/27/19 19:18 patient with no longer wheezing, however, given increasing O2 demands, COPD exacerbnation and uti, will admit Discharge - Discharge Information Problems reviewed: Yes Clinical Impression/Diagnosis: COPD exacerbation, Increased oxygen demand UTI (urinary tract infection) Qualifiers: Urinary tract infection type: site unspecified Hematuria presence: with hematuria Qualified Code(s): N39.0 - Urinary tract infection, site not specified ; R31.9 - Hematuria, unspecified Condition: Stable - Admission Yes - Follow up/Referral Referrals: Nile Dahl MD [Primary Care Provider] - - Patient Discharge Instructions - Post Discharge Activity
[2019-07-27 15:08] LABS: BASO % 0.6 % (0-2.0); EOS % 1.2 % (0-4.5); HEMATOCRIT 40.1 % (35.4-49); HEMOGLOBIN 13.5 GM/dL (11.7-16.9); LYMPH % 10.3 % (8-40); MCH 30.6 pg (25.7-33.7); MCHC 33.7 g/dl (32.0-35.9); MEAN CELL VOLUME 90.9 fl (80-96); MEAN PLT VOLUME 7.4 fl (7.5-11.1); MONO % 6.7 % (3.8-10.2); NEUT % 81.2 % (42.8-82.8); PLATELET COUNT 258 K/MM3 (134-434); RBC 4.41 M/mm3 (4.00-5.60); WHITE BLOOD COUNT 9.8 K/mm3 (4.0-10.0)
[2019-07-27] MEDS ORDERED: AZITHROMYCIN 250 MG TABLET PO ONE (15:15)
[2019-07-27] MEDS ORDERED: predniSONE 20 MG TABLET (UD) PO ONE (15:16)
[2019-07-27] MEDS ORDERED: ALBUTEROL SO4 2.5/IPRATROPIUM 0.5 INH SOL 3 ML VIAL.NEB. NEB ONE ×3 (15:16→23:17)
[2019-07-27 15:22] LABS: INR 1.16 (0.83-1.09); PROTHROMBIN TIME (PATIENT) 13.7 SEC (9.7-13.0)
[2019-07-27 15:25] LABS: ACTIVATED PTT 31.5 SECONDS (25.2-36.5)
--- NOTE | 2019-07-27 15:41 | PDOC ---
Documentation entered by Marck Agarwal SCRIBE, acting as scribe for Freda Bui MD. Freda Bui MD: This documentation has been prepared by the Any gomes Nirvannie, SCRIBE, under my direction and personally reviewed by me in its entirety. I confirm that the documentation accurately reflects all work, treatment, procedures, and medical decision making performed by me. Attending Attestation - Resident Resident Name: Cady Sandoval - ED Attending Attestation I have performed the following: I have examined & evaluated the patient, The case was reviewed & discussed with the resident, I agree w/resident's findings & plan, Exceptions are as noted - HPI HPI: 07/27/19 15:35 The patient is a 88 year old male, with a significant past medical history of HTN, HLD, COPD (2L O2 at home), CAD (s/p cardiac stenting 17), who presents to the emergency department with progressively worsening cough now productive with yellowish sputum. He denies any recent chest pain. He denies any recent dysuria, frequency, urgency or hematuria. Allergies: Shrimp Primary Care Physician: Dr. Dahl - Physicial Exam PE: 07/27/19 15:35 GENERAL: Awake, alert, and fully oriented, in no acute distress HEAD: No signs of trauma EYES: PERRLA, EOMI, sclera anicteric, conjunctiva clear ENT: Auricles normal inspection, hearing grossly normal, nares patent, oropharynx clear without exudates. Moist mucosa NECK: Normal ROM, supple, no lymphadenopathy, JVD, or masses LUNGS: +Decreased air entry bilaterally. No wheezes, and no crackles HEART: Regular rate and rhythm, normal S1 and S2, no murmurs, rubs or gallops ABDOMEN: Soft, nontender, normoactive bowel sounds. No guarding, no rebound. No masses EXTREMITIES:+ 1+ bilateral LE edema with associated chronic venous stasis changes. Normal range of motion No clubbing or cyanosis. No cords, erythema, or tenderness NEUROLOGICAL: Cranial nerves II through XII grossly intact. Normal speech SKIN: Warm, Dry, normal turgor, no rashes or lesions noted. - Medical Decision Making 07/27/19 15:55 Pt presents to the ED complaining of shortness of breath, productive cough and increased oxygen requirement. History of COPD. Differential includes COPD exacerbation, PNA, less likely CHF. Will check labs and CXR, treat with nebs and steroids and ressess.
[2019-07-27 15:46] LABS: BILIRUBIN,TOTAL 0.6 mg/dL (0.2-1); BLOOD UREA NITROGEN 23.7 mg/dL (7-18); CALCIUM 8.8 mg/dL (8.5-10.1); CREATININE 0.8 mg/dL (0.55-1.3); MAGNESIUM 1.9 mg/dL (1.8-2.4); POTASSIUM 3.7 mmol/L (3.5-5.1); TOT PROT 5.6 g/dl (6.4-8.2)
[2019-07-27] MEDS ORDERED: predniSONE 20 MG TABLET (UD) ONE (15:47)
[2019-07-27] MEDS ORDERED: AZITHROMYCIN 500 MG TABLET ONE (15:47)
[2019-07-27 16:01] LABS: EPI CELLS 0.4 /HPF (0-5/HPF); HYALINE CASTS 7 /lpf (0-8); URINE APPEARANCE CLOUDY; URINE BACTERIA 33.7 /hpf (NEGATIVE); URINE BILIRUBIN NEGATIVE (NEGATIVE); URINE COLOR YELLOW; URINE GLUCOSE (UA) NEGATIVE (NEGATIVE); URINE KETONE NEGATIVE (NEGATIVE); URINE LEUK ESTERASE 3+ (NEGATIVE); URINE NITRITE NEGATIVE (NEGATIVE); URINE PROTEIN NEGATIVE (NEGATIVE); URINE RBC 10 /hpf (0-4); URINE UROBILINOGEN 0.2 mg/dL (0.2-1.0); URINE WBC 257 /hpf (0-5)
[2019-07-27] MEDS ORDERED: CEFTRIAXONE 1 GM in DEXTROSE 5%-WATER - 100 ML IVPB ONE (16:21)
[2019-07-27] MEDS ORDERED: CEFTRIAXONE 1 GM/50 ML BAG ONE (16:30)
--- NOTE | 2019-07-27 21:32 | PN ---
Teaching Attending Note Name of Resident: Jaswinder Cardona ATTENDING PHYSICIAN STATEMENT I saw and evaluated the patient. I reviewed the resident's note and discussed the case with the resident. I agree with the resident's findings and plan as documented. SUBJECTIVE: This is an 88 year old man with a history of HTN, hyperlipidemia, CAD with stents, chronic hypoxic respiratory failure, COPD, lung nodules who comes to the ED complaining of shortness of breath and cough productive of yellow sputum for the last 3 days. He denies fever, chills, chest pain, palpitations. He says he has been using more oxygen at home during this time. He also reports burning when he urinates. He had been admitted 06/26-06/28 with SOB and leg edema. He was treated for COPD exacerbation and UTI with steroids, ceftriaxone, Lasix.He was discharged on Toprol XL and Lasix but says that since then he was told by his PCP to discontinue both as his BP was ok. OBJECTIVE: Vital Signs Period Temp Pulse Resp BP Sys/Donovan Pulse Ox Last 24 Hr 98.7 F-99.5 F 74-80 20-22 105-117/61-64 97-99 HEART: S1S2, RRR LUNGS: Clear with decreased BS ABDOMEN: Soft, non-tender, non-distended, normal BS EXTREMITIES: 1+ edema Laboratory Tests 07/27/19 07/27/19 07/27/19 14:20 14:20 14:20 WBC 9.8 RBC 4.41 Hgb 13.5 Hct 40.1 MCV 90.9 MCH 30.6 MCHC 33.7 RDW 15.0 Plt Count 258 D MPV 7.4 L Absolute Neuts (auto) 8.0 Neutrophils % 81.2 Lymphocytes % 10.3 D Monocytes % 6.7 Eosinophils % 1.2 Basophils % 0.6 Nucleated RBC % 0 PT with INR 13.70 H INR 1.16 H PTT (Actin FS) 31.5 Sodium Potassium Chloride Carbon Dioxide Anion Gap BUN Creatinine Est GFR (CKD-EPI)AfAm Est GFR (CKD-EPI)NonAf Random Glucose Lactic Acid Calcium Magnesium Total Bilirubin AST ALT Alkaline Phosphatase Creatine Kinase 105 Troponin I 0.07 H B-Natriuretic Peptide Total Protein Albumin Urine Color Urine Appearance Urine pH Ur Specific [place] Urine Protein Urine Glucose (UA) Urine Ketones Urine Blood Urine Nitrite Urine Bilirubin Urine Urobilinogen Ur Leukocyte Esterase Urine WBC (Auto) Urine RBC (Auto) Urine Casts (Auto) U Pathogenic Cast Auto U Epithel Cells (Auto) Urine Bacteria (Auto) Urine Yeast (Auto) 07/27/19 07/27/19 07/27/19 14:20 15:15 15:15 WBC RBC Hgb Hct MCV MCH MCHC RDW Plt Count MPV Absolute Neuts (auto) Neutrophils % Lymphocytes % Monocytes % Eosinophils % Basophils % Nucleated RBC % PT with INR INR PTT (Actin FS) Sodium 142 Potassium 3.7 Chloride 106 Carbon Dioxide 31 Anion Gap 6 L BUN 23.7 H Creatinine 0.8 Est GFR (CKD-EPI)AfAm 93.75 Est GFR (CKD-EPI)NonAf 80.89 Random Glucose 90 Lactic Acid 1.5 Calcium 8.8 Magnesium 1.9 Total Bilirubin 0.6 AST 31 ALT 23 Alkaline Phosphatase 46 Creatine Kinase Troponin I B-Natriuretic Peptide 403.0 Total Protein 5.6 L Albumin 3.0 L Urine Color Yellow Urine Appearance Cloudy Urine pH 5.0 Ur Specific [place] 1.022 Urine Protein Negative Urine Glucose (UA) Negative Urine Ketones Negative Urine Blood 3+ H Urine Nitrite Negative Urine Bilirubin Negative Urine Urobilinogen 0.2 Ur Leukocyte Esterase 3+ H Urine WBC (Auto) 257 Urine RBC (Auto) 10 Urine Casts (Auto) 7 U Pathogenic Cast Auto None U Epithel Cells (Auto) 0.4 Urine Bacteria (Auto) 33.7 Urine Yeast (Auto) None 07/27/19 18:03 WBC RBC Hgb Hct MCV MCH MCHC RDW Plt Count MPV Absolute Neuts (auto) Neutrophils % Lymphocytes % Monocytes % Eosinophils % Basophils % Nucleated RBC % PT with INR INR PTT (Actin FS) Sodium Potassium Chloride Carbon Dioxide Anion Gap BUN Creatinine Est GFR (CKD-EPI)AfAm Est GFR (CKD-EPI)NonAf Random Glucose Lactic Acid Calcium Magnesium Total Bilirubin AST ALT Alkaline Phosphatase Creatine Kinase Troponin I 0.07 H B-Natriuretic Peptide Total Protein Albumin Urine Color Urine Appearance Urine pH Ur Specific [place] Urine Protein Urine Glucose (UA) Urine Ketones Urine Blood Urine Nitrite Urine Bilirubin Urine Urobilinogen Ur Leukocyte Esterase Urine WBC (Auto) Urine RBC (Auto) Urine Casts (Auto) U Pathogenic Cast Auto U Epithel Cells (Auto) Urine Bacteria (Auto) Urine Yeast (Auto) Home Medications Medication Instructions Recorded Atorvastatin Ca [Lipitor] 40 mg PO HS tablet 09/04/17 Budesonide/Formeterol Fumarate 2 puff IH BID inhaler 09/04/17 [SYMBICORT 80/4.5mcg -] Escitalopram Oxalate [Lexapro -] 10 mg PO DAILY tablet 09/04/17 Ipratropium/Albuterol Sulfate 4 gm IH QID #1 aer.w.adap 09/04/17 [Combivent Respimat 20-100 Mcg] Tiotropium [place] [Spiriva] 1 puff IH DAILY inh 09/04/17 Aspirin [Adult Aspirin Regimen] 81 mg PO DAILY 05/15/19 Metoprolol Succinate [Toprol Xl] 25 mg PO DAILY 06/26/19 Omeprazole 20 mg PO DAILY 06/26/19 Furosemide [Lasix -] 80 mg PO DAILY #30 tablet 06/28/19 Famotidine [Pepcid -] 40 mg PO DAILY 07/27/19 ASSESSMENT AND PLAN: This is an 88 year old man with a history of HTN, hyperlipidemia, CAD with stents, chronic hypoxic respiratory failure, COPD, lung nodules who presented to the ED with SOB, productive cough, and dysuria. 1. Acute exacerbation of COPD - No evidence of pneumonia - SoluMedrol, DuoNeb, azithromycin - Oxygen to maintain saturation >90% 2. Possible UTI - Urine culture on last admission was negative - Ceftriaxone - Follow-up urine culture 3. Leg edema - Secondary to venous insufficiency, possible fluid overload - Would restart Lasix 4. Chronic hypoxic respiratory failure - Has home oxygen 5. CAD, history of stents - No ischemia on stress echo 06/2017 - Continue aspirin, Lipitor - Would restart Toprol XL 6. HTN - Would restart Toprol XL, Lasix 7. Hyperlipidemia - Continue Lipitor 8. Lung nodules - CT done on 06/26 shows nodules are unchanged - follow-up CT in 6 months was recommended
--- NOTE | 2019-07-27 21:51 | HP ---
CHIEF COMPLAINT: SOB, cough for 1 week, and dysuria for the past 1 month PCP: Dr. Dahl HISTORY OF PRESENT ILLNESS: This is an 88 year old male, PMH significant for HTN, HLD, CAD (stent placed 2016), and COPD (on 2L O2 at home). He presented to the ER with complaints of worsening SOB, cough for 1 week, and dysuria for the past 1 month. He was admitted to [facility] from 06/26/19-06/28/19 for COPD exacerbation, and states that he has had around 4 admissions for COPD exacerbation over the past 1 year. Since his DC on 06/28 his SOB and cough have been gradually worsening. He states that he has a dry cough at baseline associated with post nasal drip, which he attributes to his seasonal allergies. For the past 1 week, his cough has felt different from his usual cough. He started developing sputum, which was clear when it began 1 week ago, but over the past few days has turned yellow (but no blood has been observed). He has also noticed a crackling sound when he coughs, which is new. His SOB has also worsened. He is typically able to walk around inside his house without any assistance, but for the past 1 week even moderate exercise has rendered him exhausted. He endorses orthopnea, and although he only uses pillow , he sleeps at an angle of approximately 45 degrees. He denies recent paroxysmal nocturnal dyspnea, but states that he has had episodes in the past. He had significant leg swelling during his last admission, which he states has improved. He is on 2L oxygen at home, which he uses at night. Over the past few days, he has been requiring oxygen during the daytime as well. He has also had burning micturation for the past several weeks, predating his previous hospital admission. He states that he feels an urge to urinate, and feels a mild burning while urinating. He denies polyuria or hematuria. He also denies fevers, chills, chest pain, nausea, vomiting, diarrhea, palpitations, or abdominal pain. He takes Spiriva and Combivent at home for his COPD. He takes Lipitor for HLD. He states that he is not currently on any anti-hypertensive medication because his PCP informed him that his BP was under control. He had a cardiac stent placed in 2016. ER course was notable for: (1) UA 3+ blood, 3+ LE (2) Trop 0.07 (3) Ceftriaxone, Azithro, Prednisone 40mg PO Recent Travel: denies PAST MEDICAL HISTORY: See HPI PAST SURGICAL HISTORY: See HPI Social History: Smoking: quit 30 years ago, 1ppd for several years before that (pt unable to quantify) Alcohol: socially Drugs: denies Allergies No Known Drug Allergies Allergy (Verified 06/26/19 18:08) shrimp Allergy (Unknown, Uncoded 06/26/19 18:08) lip swelling HOME MEDICATIONS: Home Medications Medication Instructions Recorded Atorvastatin Ca [Lipitor] 40 mg PO HS tablet 09/04/17 Budesonide/Formeterol Fumarate 2 puff IH BID inhaler 09/04/17 [SYMBICORT 80/4.5mcg -] Escitalopram Oxalate [Lexapro -] 10 mg PO DAILY tablet 09/04/17 Ipratropium/Albuterol Sulfate 4 gm IH QID #1 aer.w.adap 09/04/17 [Combivent Respimat 20-100 Mcg] Tiotropium [place] [Spiriva] 1 puff IH DAILY inh 09/04/17 Aspirin [Adult Aspirin Regimen] 81 mg PO DAILY 05/15/19 Metoprolol Succinate [Toprol Xl] 25 mg PO DAILY 06/26/19 Omeprazole 20 mg PO DAILY 06/26/19 Furosemide [Lasix -] 80 mg PO DAILY #30 tablet 06/28/19 Famotidine [Pepcid -] 40 mg PO DAILY 07/27/19 REVIEW OF SYSTEMS CONSTITUTIONAL: Absent: fever, chills, diaphoresis, generalized weakness, malaise, loss of appetite, weight change HEENT: Absent: rhinorrhea, nasal congestion, throat pain, throat swelling, difficulty swallowing, mouth swelling, ear pain, eye pain, visual changes CARDIOVASCULAR: Absent: chest pain, syncope, palpitations, irregular heart rate, lightheadedness , peripheral edema RESPIRATORY: cough, shortness of breath Absent: cough, shortness of breath, dyspnea with exertion, orthopnea, wheezing, stridor, hemoptysis GASTROINTESTINAL: Absent: abdominal pain, abdominal distension, nausea, vomiting, diarrhea, constipation, melena, hematochezia GENITOURINARY: dysuria Absent: dysuria, frequency, urgency, hesitancy, hematuria, flank pain, genital pain MUSCULOSKELETAL: Absent: myalgia, arthralgia, joint swelling, back pain, neck pain SKIN: Absent: rash, itching, pallor HEMATOLOGIC/IMMUNOLOGIC: Absent: easy bleeding, easy bruising, lymphadenopathy, frequent infections ENDOCRINE: Absent: unexplained weight gain, unexplained weight loss, heat intolerance, cold intolerance NEUROLOGIC: Absent: headache, focal weakness or paresthesias, dizziness, unsteady gait, seizure, mental status changes, bladder or bowel incontinence PSYCHIATRIC: Absent: anxiety, depression, suicidal or homicidal ideation, hallucinations. PHYSICAL EXAMINATION Vital Signs - 24 hr 07/27/19 07/27/19 07/27/19 13:22 13:49 15:38 Temperature 99.5 F 98.7 F Pulse Rate 74 Pulse Rate [ 80 Right Radial] Respiratory 20 22 H Rate Blood Pressure 105/64 Blood Pressure 117/61 [Left Arm] O2 Sat by Pulse 97 99 99 Oximetry (%) GENERAL: AOx3 HEAD: Normal with no signs of trauma. EYES: Pupils equal, round and reactive to light, extraocular movements intact, sclera anicteric, conjunctiva clear. No lid lag. EARS, NOSE, THROAT: Ears normal, nares patent, oropharynx clear without exudates. Moist mucous membranes. NECK: Normal range of motion, supple without lymphadenopathy, JVD, or masses. LUNGS: Decreased breath sounds B/L, L>R, fine crackles heard on anterior auscultation when pt coughs, no wheezing HEART: Regular rate and rhythm, normal S1 and S2 without murmur, rub or gallop. ABDOMEN: Soft, nontender, not distended, normoactive bowel sounds, no guarding, no rebound, no masses. No hepatomegaly or splenomegaly. MUSCULOSKELETAL: Normal range of motion at all joints. No bony deformities or tenderness. No CVA tenderness. UPPER EXTREMITIES: 2+ pulses, warm, well-perfused. No cyanosis. No clubbing. No peripheral edema. LOWER EXTREMITIES: 2+ pulses, warm, well-perfused. No calf tenderness. No peripheral edema. NEUROLOGICAL: Cranial nerves II-XII intact. Normal speech PSYCHIATRIC: Cooperative. Good eye contact. Appropriate mood and affect. SKIN: Warm, dry, normal turgor, no rashes or lesions noted, normal capillary refill. Laboratory Results - last 24 hr 07/27/19 07/27/19 07/27/19 14:20 14:20 14:20 WBC 9.8 RBC 4.41 Hgb 13.5 Hct 40.1 MCV 90.9 MCH 30.6 MCHC 33.7 RDW 15.0 Plt Count 258 D MPV 7.4 L Absolute Neuts (auto) 8.0 Neutrophils % 81.2 Lymphocytes % 10.3 D Monocytes % 6.7 Eosinophils % 1.2 Basophils % 0.6 Nucleated RBC % 0 PT with INR 13.70 H INR 1.16 H PTT (Actin FS) 31.5 Sodium Potassium Chloride Carbon Dioxide Anion Gap BUN Creatinine Est GFR (CKD-EPI)AfAm Est GFR (CKD-EPI)NonAf Random Glucose Lactic Acid Calcium Magnesium Total Bilirubin AST ALT Alkaline Phosphatase Creatine Kinase 105 Troponin I 0.07 H B-Natriuretic Peptide Total Protein Albumin Urine Color Urine Appearance Urine pH Ur Specific [place] Urine Protein Urine Glucose (UA) Urine Ketones Urine Blood Urine Nitrite Urine Bilirubin Urine Urobilinogen Ur Leukocyte Esterase Urine WBC (Auto) Urine RBC (Auto) Urine Casts (Auto) U Pathogenic Cast Auto U Epithel Cells (Auto) Urine Bacteria (Auto) Urine Yeast (Auto) 07/27/19 07/27/19 07/27/19 14:20 15:15 15:15 WBC RBC Hgb Hct MCV MCH MCHC RDW Plt Count MPV Absolute Neuts (auto) Neutrophils % Lymphocytes % Monocytes % Eosinophils % Basophils % Nucleated RBC % PT with INR INR PTT (Actin FS) Sodium 142 Potassium 3.7 Chloride 106 Carbon Dioxide 31 Anion Gap 6 L BUN 23.7 H Creatinine 0.8 Est GFR (CKD-EPI)AfAm 93.75 Est GFR (CKD-EPI)NonAf 80.89 Random Glucose 90 Lactic Acid 1.5 Calcium 8.8 Magnesium 1.9 Total Bilirubin 0.6 AST 31 ALT 23 Alkaline Phosphatase 46 Creatine Kinase Troponin I B-Natriuretic Peptide 403.0 Total Protein 5.6 L Albumin 3.0 L Urine Color Yellow Urine Appearance Cloudy Urine pH 5.0 Ur Specific [place] 1.022 Urine Protein Negative Urine Glucose (UA) Negative Urine Ketones Negative Urine Blood 3+ H Urine Nitrite Negative Urine Bilirubin Negative Urine Urobilinogen 0.2 Ur Leukocyte Esterase 3+ H Urine WBC (Auto) 257 Urine RBC (Auto) 10 Urine Casts (Auto) 7 U Pathogenic Cast Auto None U Epithel Cells (Auto) 0.4 Urine Bacteria (Auto) 33.7 Urine Yeast (Auto) None 07/27/19 18:03 WBC RBC Hgb Hct MCV MCH MCHC RDW Plt Count MPV Absolute Neuts (auto) Neutrophils % Lymphocytes % Monocytes % Eosinophils % Basophils % Nucleated RBC % PT with INR INR PTT (Actin FS) Sodium Potassium Chloride Carbon Dioxide Anion Gap BUN Creatinine Est GFR (CKD-EPI)AfAm Est GFR (CKD-EPI)NonAf Random Glucose Lactic Acid Calcium Magnesium Total Bilirubin AST ALT Alkaline Phosphatase Creatine Kinase Troponin I 0.07 H B-Natriuretic Peptide Total Protein Albumin Urine Color Urine Appearance Urine pH Ur Specific [place] Urine Protein Urine Glucose (UA) Urine Ketones Urine Blood Urine Nitrite Urine Bilirubin Urine Urobilinogen Ur Leukocyte Esterase Urine WBC (Auto) Urine RBC (Auto) Urine Casts (Auto) U Pathogenic Cast Auto U Epithel Cells (Auto) Urine Bacteria (Auto) Urine Yeast (Auto) ASSESSMENT/PLAN: 88 year old male, PMH significant for HTN, HLD, CAD (stent placed 2016), and COPD (on 2L O2 at home). He presented to the ER with complaints of worsening SOB , cough for 1 week, and dysuria for the past 1 month. Admitted for management of suspected UTI and COPD exacerbation. #SOB - 3/3 cardinal symptoms of COPD exacerbation: 1. Increased dyspnea 2. Increased sputum volume 3. Increased sputum purulence - CXR shows no infiltrates, come chronic fibrotic changes, clear angles - Duonebs Q4 PRN, keep on 3L O2, titrate as necessary to keep O2 over 92%, incentive spirometery - Solu-Medrol 125mg - Ceftriaxone and Azithromycin started, does not require Pseudomonas coverage - Sputum cx ordered #UTI - UA 3+ blood, 3+ LE - Ceftriaxone will cover UTI - Urine cx ordered #LE Edema - May be due to venous insufficiency, as per previous admission records - Last echo in 05/12 showed LVEF 50-55% with impaired LV relaxation - Lasix on previous admission helped improve SOB, pt currently with improved LE edema, no crackles, clear CXR, will defer decision to use Lasix to cardio - Cardio (Dr. Orr) consulted to assess whether patient requires Lasix #Tropinemia - 0.07, was 0.08 on previous admission - No EKG changes, no chest pain, with hx of stent placement may suggest demand ischemia related to COPD exacerbation, low suspicion for ACS - Will repeat AM trop and EKG to r/o ACS - No ischemia noted on stress Echo in Jun #Lung nodules - Incidental finding on CT from 06/26 - Pt should F/U in 6 months as outpatient #Hx of HTN - Resume home meds once confirmed #Hx of HLD - Resume home meds once confirmed #FEN - Na controlled diet #DVT - Lovenox 40mg Visit type - Emergency Visit Emergency Visit: Yes ED Registration Date: 07/27/19 Care time: The patient presented to the Emergency Department on the above date and was hospitalized for further evaluation of their emergent condition. - New Patient This patient is new to me today: Yes Date on this admission: 07/29/19 - Critical Care Critical Care patient: No ATTENDING PHYSICIAN STATEMENT I saw and evaluated the patient. I reviewed the resident's note and discussed the case with the resident. I agree with the resident's findings and plan as documented. SUBJECTIVE: OBJECTIVE: ASSESSMENT AND PLAN:
[2019-07-27] MEDS: ALBUTEROL SO4 2.5/IPRATROPIUM 0.5 INH SOL 3 ML VIAL.NEB. NEB SCH (23:25)
[2019-07-28] MEDS: ALBUTEROL SO4 2.5/IPRATROPIUM 0.5 INH SOL 3 ML VIAL.NEB. NEB SCH ×5 (03:40→20:41)
[2019-07-28 06:08] LABS: BASO % 0.2 % (0-2.0); HEMATOCRIT 35.4 % (35.4-49); HEMOGLOBIN 11.9 GM/dL (11.7-16.9); LYMPH % 8.8 % (8-40); MCH 30.4 pg (25.7-33.7); MCHC 33.5 g/dl (32.0-35.9); MEAN CELL VOLUME 90.7 fl (80-96); MEAN PLT VOLUME 7.2 fl (7.5-11.1); MONO % 5.7 % (3.8-10.2); NEUT % 85.3 % (42.8-82.8); PLATELET COUNT 241 K/MM3 (134-434); RDW 15.4 % (11.9-15.9); WHITE BLOOD COUNT 6.6 K/mm3 (4.0-10.0)
[2019-07-28 06:41] LABS: ALBUMIN 2.8 g/dl (3.4-5.0); BILIRUBIN,TOTAL 0.4 mg/dL (0.2-1); BLOOD UREA NITROGEN 25.9 mg/dL (7-18); CALCIUM 8.4 mg/dL (8.5-10.1); CREATININE 0.9 mg/dL (0.55-1.3); POTASSIUM 3.7 mmol/L (3.5-5.1); TOT PROT 5.2 g/dl (6.4-8.2)
--- NOTE | 2019-07-28 09:02 | PN ---
Physical Exam: SUBJECTIVE: Patient seen and examined. Pt is reporting weakness and dyspnea. Pt report inability to walk. PT and respiratory to see pt. No overnight acute events. Afebrile and asymptomatic. Denies f/c/v/d/sob/cp OBJECTIVE: Vital Signs Period Temp Pulse Resp BP Sys/[place]ovan Pulse Ox Last 24 Hr 97.9 F-99.5 F 74-87 14-22 105-138/37-64 96-100 GENERAL: The patient is awake, alert, and fully oriented, in no acute distress. Appears anxious and frail EYES: PERRL, extraocular movements intact, sclera anicteric, conjunctiva clear. No ptosis. ENT: dry mucous membranes. NECK: Trachea midline, full range of motion, supple. LUNGS: Breath sounds equal, clear to auscultation bilaterally, no wheezes, crackles b/l likely from fibrosis, coarse breath sounds heard. HEART: Regular rate and rhythm, S1, S2 without murmur, rub or gallop. ABDOMEN: Soft, nontender, nondistended, normoactive bowel sounds, no guarding, EXTREMITIES: 2+ pulses, warm, well-perfused, no edema. NEUROLOGICAL: Cranial nerves II through XII grossly intact. PSYCH: Normal mood, normal affect. SKIN: Warm, dry, normal turgor, no rashes or lesions noted Laboratory Results - last 24 hr CBC, BMP 07/28/19 05:30 07/28/19 05:30 Active Medications Current Medications Albuterol Sulfate (Ventolin 0.083% Nebulizer Soln -) 1 amp NEB Q4H PRN PRN Reason: SHORT OF BREATH/WHEEZING Albuterol/Ipratropium (Duoneb -) 1 amp NEB RQID [facility] Last Admin: 07/28/19 16:26 Dose: 1 amp Aspirin (Ecotrin -) 81 mg PO DAILY [facility] Atorvastatin Calcium (Lipitor -) 40 mg PO HS [facility] Enoxaparin Sodium (Lovenox -) 40 mg SQ DAILY [facility] Last Admin: 07/28/19 10:09 Dose: 40 mg Escitalopram Oxalate (Lexapro -) 10 mg PO DAILY [facility] Fluticasone Propionate (Flonase -) 2 spray NS BID [facility] Furosemide (Lasix -) 80 mg PO DAILY [facility] Last Admin: 07/28/19 11:36 Dose: 80 mg Azithromycin (Zithromax 500mg Ivpb (Pre-Docked)) 500 mg in 250 mls @ 250 mls/ hr IVPB DAILY [facility] Last Admin: 07/28/19 10:56 Dose: 250 mls/hr Ceftriaxone Sodium 1 gm/ (Dextrose) 50 mls @ 100 mls/hr IVPB DAILY [facility]; Protocol Last Admin: 07/28/19 10:09 Dose: 100 mls/hr Methylprednisolone Sodium Succinate (Solu-Medrol -) 40 mg IVPUSH Q8H-IV [facility] Home Medications Medication Instructions Recorded Atorvastatin Ca [Lipitor] 40 mg PO HS tablet 09/04/17 Budesonide/Formeterol Fumarate 2 puff IH BID inhaler 09/04/17 [SYMBICORT 80/4.5mcg -] Escitalopram Oxalate [Lexapro -] 10 mg PO DAILY tablet 09/04/17 Ipratropium/Albuterol Sulfate 4 gm IH QID #1 aer.w.adap 09/04/17 [Combivent Respimat 20-100 Mcg] Tiotropium [place] [Spiriva] 1 puff IH DAILY inh 09/04/17 Aspirin [Adult Aspirin Regimen] 81 mg PO DAILY 05/15/19 Omeprazole 20 mg PO DAILY 06/26/19 Furosemide [Lasix -] 80 mg PO DAILY #30 tablet 06/28/19 Famotidine [Pepcid -] 40 mg PO DAILY 07/27/19 Microbiology 07/27/19 15:15 Blood - Peripheral Venous Blood Culture - Preliminary NO GROWTH OBTAINED AFTER 24 HOURS, INCUBATION TO CONTINUE FOR 4 DAYS. 07/27/19 15:00 Blood - Peripheral Venous Blood Culture - Preliminary NO GROWTH OBTAINED AFTER 24 HOURS, INCUBATION TO CONTINUE FOR 4 DAYS. ASSESSMENT/PLAN: 88 y/o M, pmh of HTN, HLD, CAD (stent placed 2016), CHF and COPD (on 2L O2 at home) presented to the ER with complaints of worsening SOB, cough for 1 week, and dysuria for the 1 week admitted for possible UTI and COPD exacerbation #Acute COPD exacerbation dounebs, albuterol, IV solumedrol Q8H for 24-48 hrs, flonase Azithromyicn and ceftriaxone keep on 2L O2, titrate as necessary to keep O2 over 92%, incentive spirometery CXR shows no infiltrates, come chronic fibrotic changes, clear angles Pre and post ordered #UTI UA positive- 3+ blood and 3+ LE UCx neg cont abx #Chronic d-CHF Stress Echo with definity contrast 06/2017: 1.20 min on rodney protocol. MPHR 115% . Non ischemic ekg changes. No inducible ischemia (lack of LV augmentation noted ). pear rvsp at least 69. Lasix 80mg PO daily Hold BB #Troponemia Trop indeterminate range- flat trend echo in 05/12 showed LVEF 50-55% with impaired LV relaxation #Lung nodule CT from 06/26 incidental finding F/u CT in 6 months #HLD cont ASA, statins #DVTppx lovenox 40mg FEN Na diet monitor lytes Dispo: IV steroids till tomorrow, switch to oral prednisone adali, consider d/c planning adali Visit type - Emergency Visit Emergency Visit: Yes ED Registration Date: 07/27/19 Care time: The patient presented to the Emergency Department on the above date and was hospitalized for further evaluation of their emergent condition. - New Patient This patient is new to me today: Yes Date on this admission: 07/29/19 - Critical Care Critical Care patient: No - Discharge Referral Referred to [facility] Med P.C.: No ATTENDING PHYSICIAN STATEMENT I saw and evaluated the patient. I reviewed the resident's note and discussed the case with the resident. I agree with the resident's findings and plan as documented. SUBJECTIVE: OBJECTIVE: ASSESSMENT AND PLAN:
--- NOTE | 2019-07-28 09:28 | EKG ---
Test Reason : Blood Pressure : / mmHG Vent. Rate : 074 BPM Atrial Rate : 074 BPM P-R Int : 160 ms QRS Dur : 078 ms QT Int : 410 ms P-R-T Axes : 039 -41 036 degrees QTc Int : 455 ms POOR DATA QUALITY, INTERPRETATION MAY BE ADVERSELY AFFECTED SINUS RHYTHM WITH PREMATURE SUPRAVENTRICULAR COMPLEXES LEFT AXIS DEVIATION SEPTAL INFARCT (CITED ON OR BEFORE 14-MAY-2019) ABNORMAL ECG WHEN COMPARED WITH ECG OF 27-JUN-2019 01:49, PREMATURE VENTRICULAR COMPLEXES ARE NO LONGER PRESENT PREMATURE SUPRAVENTRICULAR COMPLEXES ARE NOW PRESENT QUESTIONABLE CHANGE IN INITIAL FORCES OF SEPTAL LEADS Confirmed by Osei Castaneda MD ([id number]) on 07/28/2019 9:27:20 AM Referred By: Confirmed By:Osei Castaneda MD
[2019-07-28] MEDS ORDERED: predniSONE 20 MG TABLET (UD) ONE (09:54)
[2019-07-28] MEDS ORDERED: CEFTRIAXONE 1 GM/50 ML BAG ONE (09:54)
[2019-07-28] MEDS ORDERED: predniSONE 20 MG TABLET (UD) PO SCH (10:00)
[2019-07-28] MEDS ORDERED: methylPREDNISolone NA SUCC 125 MG/2 ML VIAL IVPB SCH (10:00)
[2019-07-28] MEDS: ENOXAPARIN NA (PORCINE) 40 MG/0.4 ML DISP.SYRIN SQ SCH (10:09)
[2019-07-28] MEDS: CEFTRIAXONE 1 GM in DEXTROSE 5%-WATER - 50 ML IVPB SCH (10:09)
--- NOTE | 2019-07-28 10:09 | EKG ---
Test Reason : Blood Pressure : / mmHG Vent. Rate : 079 BPM Atrial Rate : 079 BPM P-R Int : 160 ms QRS Dur : 094 ms QT Int : 394 ms P-R-T Axes : 038 -36 030 degrees QTc Int : 451 ms NORMAL SINUS RHYTHM WITH SINUS ARRHYTHMIA LEFT AXIS DEVIATION SEPTAL INFARCT (CITED ON OR BEFORE 14-MAY-2019) ABNORMAL ECG WHEN COMPARED WITH ECG OF 27-JUL-2019 14:24, PREMATURE SUPRAVENTRICULAR COMPLEXES ARE NO LONGER PRESENT Confirmed by Osei Castaneda MD ([id number]) on 07/28/2019 10:09:18 AM Referred By: Melissa NEWSOME Confirmed By:Osei Castaneda MD
[2019-07-28] MEDS ORDERED: AZITHROMYCIN IVPB 500 MG/250 ML BAG IVPB ONE (10:40)
[2019-07-28] MEDS: AZITHROMYCIN IVPB 500 MG/250 ML BAG IVPB SCH (10:56)
--- NOTE | 2019-07-28 11:27 | CON.CARD ---
Cardiology Consult (text) - Consultation Consultation Note: Consult Specialty:: cardio - History of Present Illness Chief Complaint: sob History of Present Illness: 88 M here with sob. 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 [place] ok initially, weight has been stable at home. In the last week, more short of breath with cough productive of yellow sputum for last 3 days. Edema and weight stable until today (has now missed two days of lasix). Worsening short of breath with minimal activity. Sees Dr. rOr for cardio. PMH: CAD HTN HPL anxiety - Past Medical History Cardio/Vascular: Yes: HTN, Hyperlipdemia. No: AFIB Pulmonary: Yes: COPD, O2 Dependent, Pneumonia. No: Previously Intubated Gastrointestinal: Yes: Constipation Renal/: Yes: BPH Psych: Yes: Anxiety Musculoskeletal: Yes: Osteoarthritis ENT: Yes: Sinusitis - Past Surgical History Past Surgical History: Yes: Cataract Removal (bilateral) - Alcohol/Substance Use Hx Alcohol Use: No History of Substance Use: reports: None - Smoking History Smoking history: Former smoker Have you smoked in the past 12 months: No Aproximately how many cigarettes per day: 0 If you are a former smoker, when did you quit?: 40 years ago - Social History Usual Living Arrangement: With Spouse ADL: Independent Occupation: retired History of Recent Travel: No Home Medications - Allergies Allergies/Adverse Reactions: Allergies Allergy/AdvReac Type Severity Reaction Status Date / Time No Known Drug Allergies Allergy Verified 07/28/19 07:05 shrimp Allergy Unknown lip Uncoded 07/28/19 07:05 swelling Home Medications Medication Instructions Recorded Atorvastatin Ca [Lipitor] 40 mg PO HS tablet 09/04/17 Budesonide/Formeterol Fumarate 2 puff IH BID inhaler 09/04/17 [SYMBICORT 80/4.5mcg -] Escitalopram Oxalate [Lexapro -] 10 mg PO DAILY tablet 09/04/17 Ipratropium/Albuterol Sulfate 4 gm IH QID #1 aer.w.adap 09/04/17 [Combivent Respimat 20-100 Mcg] Tiotropium [place] [Spiriva] 1 puff IH DAILY inh 09/04/17 Aspirin [Adult Aspirin Regimen] 81 mg PO DAILY 05/15/19 Metoprolol Succinate [Toprol Xl] 25 mg PO DAILY 06/26/19 Omeprazole 20 mg PO DAILY 06/26/19 Furosemide [Lasix -] 80 mg PO DAILY #30 tablet 06/28/19 Famotidine [Pepcid -] 40 mg PO DAILY 07/27/19 Family Medical History Family History: Denies (no known cmp) Review of Systems - Review of Systems Constitutional: denies: Chills, Fever Eyes: denies: Eye Pain HENT: denies: Nasal Congestion Neck: denies: Stiffness Cardiovascular: denies: Palpitations Respiratory: denies: Orthopnea, PND Gastrointestinal: denies: Diarrhea, Rectal Bleeding Genitourinary: denies: Burning, Hematuria Musculoskeletal: denies: Muscle Pain Integumentary: denies: Rash Neurological: denies: Numbness, Seizure, Syncope Endocrine: denies: Excessive Sweating Hematology/Lymphatic: denies: Excessive Bleeding Vital Signs Period Temp Pulse Resp BP Sys/Donovan Pulse Ox Last 24 Hr 97.9 F-99.5 F 73-87 14-22 90-138/37-64 96-100 Constitutional: Yes: Well Nourished, No Distress Eyes: No: Sclera Icterus HENT: No: Nasal Congestion Neck: No: Decreased ROM Respiratory: Yes: CTA Bilaterally (faint sounds diffusely), Wheezes (faint). No : Accessory Muscle Use, Rales Gastrointestinal: Yes: Normal Bowel Sounds. No: Distention, Hepatomegaly, Palpable Mass, Tenderness Cardiovascular: Yes: Regular Rate and Rhythm JVD: No Carotid Bruit: No PMI: Non-Displaced Heart Sounds: Yes: S1, S2. No: Gallop Murmur: No: Systolic Murmur, Diastolic Murmur Musculoskeletal: Yes: Other (No kyphosis) Extremities: No: Cool, Cyanosis Edema: Yes (2+ pretibs) Peripheral Pulses: 2+ Left Carotid, 2+ Right Carotid, 2+ Left Doralis Pedis, 2+ Right Dorsalis Pedis Integumentary: No: Jaundice Neurological: Yes: Alert, Oriented (x3) Psychiatric: No: Agitated Laboratory Last Values WBC 6.6 K/mm3 (4.0-10.0) 07/28/19 05:30 RBC 3.90 M/mm3 (4.00-5.60) L 07/28/19 05:30 Hgb 11.9 GM/dL (11.7-16.9) 07/28/19 05:30 Hct 35.4 % (35.4-49) 07/28/19 05:30 MCV 90.7 fl (80-96) 07/28/19 05:30 MCH 30.4 pg (25.7-33.7) 07/28/19 05:30 MCHC 33.5 g/dl (32.0-35.9) 07/28/19 05:30 RDW 15.4 % (11.9-15.9) 07/28/19 05:30 Plt Count 241 K/MM3 (134-434) 07/28/19 05:30 MPV 7.2 fl (7.5-11.1) L 07/28/19 05:30 Absolute Neuts (auto) 5.6 K/mm3 (1.5-8.0) 07/28/19 05:30 Neutrophils % 85.3 % (42.8-82.8) H 07/28/19 05:30 Lymphocytes % 8.8 % (8-40) 07/28/19 05:30 Monocytes % 5.7 % (3.8-10.2) 07/28/19 05:30 Eosinophils % 0.0 % (0-4.5) D 07/28/19 05:30 Basophils % 0.2 % (0-2.0) 07/28/19 05:30 Nucleated RBC % 0 % (0-0) 07/28/19 05:30 PT with INR 13.70 SEC (9.7-13.0) H 07/27/19 14:20 INR 1.16 (0.83-1.09) H 07/27/19 14:20 PTT (Actin FS) 31.5 SECONDS (25.2-36.5) 07/27/19 14:20 Sodium 140 mmol/L (136-145) 07/28/19 05:30 Potassium 3.7 mmol/L (3.5-5.1) 07/28/19 05:30 Chloride 104 mmol/L (98-107) 07/28/19 05:30 Carbon Dioxide 29 mmol/L (21-32) 07/28/19 05:30 Anion Gap 7 MMOL/L (8-16) L 07/28/19 05:30 BUN 25.9 mg/dL (7-18) H 07/28/19 05:30 Creatinine 0.9 mg/dL (0.55-1.3) 07/28/19 05:30 Est GFR (CKD-EPI)AfAm 89.32 07/28/19 05:30 Est GFR (CKD-EPI)NonAf 77.06 07/28/19 05:30 Random Glucose 152 mg/dL (74-106) H 07/28/19 05:30 Lactic Acid 1.5 mmol/L (0.4-2.0) 07/27/19 15:15 Calcium 8.4 mg/dL (8.5-10.1) L 07/28/19 05:30 Magnesium 1.9 mg/dL (1.8-2.4) 07/27/19 14:20 Total Bilirubin 0.4 mg/dL (0.2-1) 07/28/19 05:30 AST 27 U/L (15-37) 07/28/19 05:30 ALT 21 U/L (13-61) 07/28/19 05:30 Alkaline Phosphatase 39 U/L (45-117) L 07/28/19 05:30 Creatine Kinase 92 U/L (26-308) 07/28/19 07:28 Troponin I 0.06 ng/ml (0.00-0.05) H 07/28/19 07:28 B-Natriuretic Peptide 403.0 pg/ml (5-450) 07/27/19 14:20 Total Protein 5.2 g/dl (6.4-8.2) L 07/28/19 05:30 Albumin 2.8 g/dl (3.4-5.0) L 07/28/19 05:30 Urine Color Yellow 07/27/19 15:15 Urine Appearance Cloudy 07/27/19 15:15 Urine pH 5.0 (5.0-8.0) 07/27/19 15:15 Ur Specific [place] 1.022 (1.010-1.035) 07/27/19 15:15 Urine Protein Negative (NEGATIVE) 07/27/19 15:15 Urine Glucose (UA) Negative (NEGATIVE) 07/27/19 15:15 Urine Ketones Negative (NEGATIVE) 07/27/19 15:15 Urine Blood 3+ (NEGATIVE) H 07/27/19 15:15 Urine Nitrite Negative (NEGATIVE) 07/27/19 15:15 Urine Bilirubin Negative (NEGATIVE) 07/27/19 15:15 Urine Urobilinogen 0.2 mg/dL (0.2-1.0) 07/27/19 15:15 Ur Leukocyte Esterase 3+ (NEGATIVE) H 07/27/19 15:15 Urine WBC (Auto) 257 /hpf (0-5) 07/27/19 15:15 Urine RBC (Auto) 10 /hpf (0-4) 07/27/19 15:15 Urine Casts (Auto) 7 /lpf (0-8) 07/27/19 15:15 U Pathogenic Cast Auto None /lpf (NEGATIVE) 07/27/19 15:15 U Epithel Cells (Auto) 0.4 /HPF (0-5/HPF) 07/27/19 15:15 Urine Bacteria (Auto) 33.7 /hpf (NEGATIVE) 07/27/19 15:15 Urine Yeast (Auto) None (NEGATIVE) 07/27/19 15:15 Assessment/Plan Echo 05/12: nl LV/RV. nl valve fxn, no RVSP Stress Echo with definity contrast 06/2017: 1.20 min on rodney protocol. MPHR 115 %. Non ischemic ekg changes. tds echo images. no inducible ischemia (lack of LV augmentation noted). pear rvsp at least 69. [facility] 05/2017: subtotal OM1--Xience. remainder unchanged: 30-50% dRCA, mild pLCX, 50-60% LPL1. EDP 10, nl EF CXR: no acute process ECG: sinus, PACs, artifact SOB, leg swelling, advanced COPD, venous insufficiency: -wt stable, BNP 403 similar to prior values no JVD - worsening edema in setting of missed lasix doses - resume lasix 80 mg PO daily -copd tx per primary team NSTEMI s/p PCI 2016, CAD: -trop indeterminate range (low end), flat trend, not c/w ACS (he has had these values before) -ecg non-ischemic -cont home aspirin, statin -stop BB, while observe if helps his copd sx's HTN: -bp's soft here, holding bb for now HLD - cont statin
[2019-07-28] MEDS ORDERED: FUROSEMIDE 40 MG TABLET (FP) ONE (11:33)
[2019-07-28] MEDS: FUROSEMIDE 40 MG TABLET (FP) PO SCH (11:36)
--- NOTE | 2019-07-28 11:58 | PN ---
Teaching Attending Note Name of Resident: Kartik Dowd ATTENDING PHYSICIAN STATEMENT I saw and evaluated the patient. I reviewed the resident's note and discussed the case with the resident. I agree with the resident's findings and plan as documented. Seen and examined; please see resident note for further historical information. I personally verified all barrios historical information and exam findings. Personally interpreted all imaging and diagnostics and reviewed appropriate consults. I reviewed all labs and vital signs as per resident note and EMR as documented. I agree with the above assessment and plan unless supplemented by myself in the following. Patient seen and examined in the emergency room, he was seen by cardiology who recommended resuming oral Lasix. Missed several doses. Negative BNP, some lower extremity edema. Saturating at baseline on home O2. He has advanced COPD and is on 2 L at home, he has elevated RVSP on prior stress echo and on prior echocardiogram; endorses a likely component of pulmonary hypertension secondary to his advanced lung disorder. Placing on oral prednisone, placing on home Lasix dose, will ambulate. If does not desaturate will clear with subspecialty consults and can discharge. Will need close follow-up with pulmonary and with cardiology as an outpatient. 10 item review of systems completed and is negative aside from as discussed in the subjective data in my own/the resident documentation. VS, labs, imaging reviewed NAD, AAO, resting comfortably in bed. RRR s1/2 no mgr Normal muscle tone, moves all 5 extremities with normal apparent strength Neck is supple, trachea midline, no shabnam LN Lungs With scattered mild wheezes with sym expansion NT ND +BS no shabnam organomegaly CN2-12 wnl; no FND NC AT EOMI PERRLA Normal mood, appropriate behavior, euthymic affect No skin breakdown or rashes noted Assessment and plan: Patient is an 88-year-old male presenting with a likely COPD exacerbation. Having PT assess him to see if he will qualify for pulmonary rehab. If he clears we will likely discharge him on oral prednisone and azithromycin with pulmonary follow-up. He missed several doses of his home Lasix and was resumed on his home dose per cardiology. Old echocardiogram is reviewed as commented on above. Follow-up pre-and post and PT evaluation. Agree with the problem list as per overnight attending note, problem list as documented in resident note. Discussed entirety of plan with team and various subspecialists. Disposition to follow; aforementioned evaluations Full code
--- NOTE | 2019-07-28 15:04 | CON.PULM ---
Consult Consult Specialty:: PULMONARY Referred by:: Dr Whitten Reason for Consultation:: COPD - History of Present Illness Chief Complaint: shortness of breath History of Present Illness: 88yo male with h/o HTN, hyperlipidemia, CAD, COPD, chronic hypoxic respiratory failure on home O2 who was admitted with worsening shortness of breath and cough x 1 week. Reports a chronic cough of white sputum which recently turned yellow. No fevers, chills or sweats. Reports more chest congestion and requiring more oxygen use. Also reports increased frequency of urination with darker urine and foul smelling. Compliant with his inhalers. He is on chronic prednisone 5mg daily. - History Source History Provided By: Patient, Significant Other, Medical Record Limitations to Obtaining History: No Limitations - Past Medical History Cardio/Vascular: Yes: HTN, Hyperlipdemia. No: AFIB Pulmonary: Yes: COPD, O2 Dependent, Pneumonia. No: Previously Intubated Gastrointestinal: Yes: Constipation Renal/: Yes: BPH Psych: Yes: Anxiety Musculoskeletal: Yes: Osteoarthritis ENT: Yes: Sinusitis - Past Surgical History Past Surgical History: Yes: Cataract Removal (bilateral) - Alcohol/Substance Use Hx Alcohol Use: No History of Substance Use: reports: None - Smoking History Smoking history: Current some day smoker Have you smoked in the past 12 months: No Aproximately how many cigarettes per day: 0 If you are a former smoker, when did you quit?: 40 years ago - Social History Usual Living Arrangement: With Spouse ADL: Independent Occupation: retired History of Recent Travel: No Home Medications - Allergies Allergies/Adverse Reactions: Allergies Allergy/AdvReac Type Severity Reaction Status Date / Time No Known Drug Allergies Allergy Verified 07/28/19 07:05 shrimp Allergy Unknown lip Uncoded 07/28/19 07:05 swelling - Home Medications Home Medications: Ambulatory Orders Atorvastatin Ca [Lipitor] 40 mg PO HS tablet 09/04/17 Budesonide/Formeterol Fumarate [SYMBICORT 80/4.5mcg -] 2 puff IH BID inhaler Escitalopram Oxalate [Lexapro -] 10 mg PO DAILY tablet 09/04/17 Ipratropium/Albuterol Sulfate [Combivent Respimat 20-100 Mcg] 4 gm IH QID #1 aer.w.adap 09/04/17 Tiotropium [place] [Spiriva] 1 puff IH DAILY inh 09/04/17 Aspirin [Adult Aspirin Regimen] 81 mg PO DAILY 05/15/19 Metoprolol Succinate [Toprol Xl] 25 mg PO DAILY 06/26/19 Omeprazole 20 mg PO DAILY 06/26/19 Furosemide [Lasix -] 80 mg PO DAILY #30 tablet 06/28/19 Famotidine [Pepcid -] 40 mg PO DAILY 07/27/19 Review of Systems - Review of Systems Constitutional: reports: Weakness. denies: Fever Eyes: denies: Recent Change in Vision HENT: reports: Nasal Congestion, Throat Pain Neck: denies: Stiffness, Tenderness Cardiovascular: reports: Shortness of Breath. denies: Chest Pain, Edema Respiratory: reports: Cough, SOB on Exertion, Wheezing. denies: Hemoptysis Gastrointestinal: denies: Abdominal Pain, Nausea, Vomiting Genitourinary: reports: Dysuria, Frequency, Hematuria Neurological: denies: Dizziness, Headache Endocrine: denies: Unexplained Weight Loss Physical Exam Vital Sings: Vital Signs Temperature 97.9 F 07/28/19 06:00 Pulse Rate 73 07/28/19 10:14 Respiratory Rate 14 07/28/19 06:00 Blood Pressure 90/45 L 07/28/19 10:14 O2 Sat by Pulse Oximetry (%) 100 07/28/19 10:14 Constitutional: Yes: Calm Eyes: Yes: Conjunctiva Clear, EOM Intact HENT: Yes: Atraumatic, Normocephalic Neck: Yes: Supple, Trachea Midline Cardiovascular: Yes: Regular Rate and Rhythm Respiratory: Yes: Rhonchi ...Clubbing: No Gastrointestinal: Yes: Normal Bowel Sounds, Soft. No: Tenderness Edema: No Peripheral Pulses WNL: No Neurological: Yes: Alert, Oriented Labs: CBC, BMP 07/28/19 05:30 07/28/19 05:30 Imaging - Results Chest X-ray: Report Reviewed, Image Reviewed (no acute findings) Assessment/Plan UTI Acute COPD Exacerbation Chronic Hypoxic Respiratory Failure CAD +Troponins likely Demand Ischemia HTN Hyperlipidemia - IV antibiotics - f/u cultures - short course of medrol x 24-48hrs until symptomatically improved - inhaled bronchodilators standing and PRN - O2 to keep SpO2 >90% - DVT prophylaxis Thank you for this consult Jacobo Ceron MD
[2019-07-28] MEDS ORDERED: ALBUTEROL SO4 0.083% IH SOL 2.5 MG/3 ML VIAL.NEB. NEB PRN (15:08)
[2019-07-28] MEDS ORDERED: ALBUTEROL SO4 2.5/IPRATROPIUM 0.5 INH SOL 3 ML VIAL.NEB. NEB ONE (16:23)
[2019-07-28] MEDS ORDERED: methylPREDNISolone NA SUCC 40 MG/1 ML VIAL ONE (18:41)
[2019-07-28] MEDS: methylPREDNISolone NA SUCC 40 MG/1 ML VIAL IVPUSH SCH (18:46)
[2019-07-28] MEDS: ATORVASTATIN CA 40 MG TABLET (FP) PO SCH (22:00)
[2019-07-28 22:30] VITALS: BMI 24.2
[2019-07-28] MEDS: FLUTICASONE PROP 0.05% 16 GM NASAL SPRAY NS SCH (23:00)
[2019-07-29] MEDS: methylPREDNISolone NA SUCC 40 MG/1 ML VIAL IVPUSH SCH ×3 (01:09→17:00)
[2019-07-29] MEDS: ALBUTEROL SO4 2.5/IPRATROPIUM 0.5 INH SOL 3 ML VIAL.NEB. NEB SCH ×4 (07:30→20:12)
[2019-07-29 08:08] LABS: HEMATOCRIT 36.9 % (35.4-49); HEMOGLOBIN 12.5 GM/dL (11.7-16.9); MCH 30.3 pg (25.7-33.7); MCHC 33.9 g/dl (32.0-35.9); MEAN CELL VOLUME 89.4 fl (80-96); MEAN PLT VOLUME 7.6 fl (7.5-11.1); PLATELET COUNT 280 K/MM3 (134-434); RBC 4.13 M/mm3 (4.00-5.60); WHITE BLOOD COUNT 8.7 K/mm3 (4.0-10.0)
[2019-07-29 08:33] LABS: ALBUMIN 2.8 g/dl (3.4-5.0); BILIRUBIN,TOTAL 0.4 mg/dL (0.2-1); BLOOD UREA NITROGEN 31.3 mg/dL (7-18); CALCIUM 8.6 mg/dL (8.5-10.1); CREATININE 0.8 mg/dL (0.55-1.3); PHOSPHOROUS 3.7 mg/dL (2.5-4.9); TOT PROT 5.4 g/dl (6.4-8.2)
--- NOTE | 2019-07-29 08:41 | PN ---
Progress Note (short form) - Note Progress Note: Hospitalist to document today. On Rx for acute bronchitis with exacerbation of COPD. VERY anxious patient with some tremulous response to admission exacerbated by albuterol and IV steroids. A daily dose of alprazolam.25 mg PRN has helped in the past.
--- NOTE | 2019-07-29 09:19 | PN ---
Teaching Attending Note Name of Resident: Kartik Dowd ATTENDING PHYSICIAN STATEMENT I saw and evaluated the patient. I reviewed the resident's note and discussed the case with the resident. I agree with the resident's findings and plan as documented. Seen and examined; please see resident note for further historical information. I personally verified all barrios historical information and exam findings. Personally interpreted all imaging and diagnostics and reviewed appropriate consults. I reviewed all labs and vital signs as per resident note and EMR as documented. I agree with the above assessment and plan unless supplemented by myself in the following. Seen by Dr. Gibbs; patient was continued on 80 oral daily of Lasix and their beta-harry was DC'd due to the COPD history. The N STEMI is likely secondary to subendocardial ischemia in the patient is free of any cardiac symptoms and was judged to not be having any ACS per cardiology consult. Telemetry may be discontinued as such. Today, the patient was doing well in terms of the respiratory status and required there baseline O2 at 2 to 3 L. We are changing to Zithromax and prednisone taper orally and having him evaluated by physical therapy. If he clears physical therapy he may be discharged home with services , with evaluation made for outpatient pulmonary rehab at [facility]. 10 item review of systems completed and is negative aside from as discussed in the subjective data in my own/the resident documentation. VS, labs, imaging reviewed NAD, AAO, resting comfortably in bed. RRR s1/2 no mgr Normal muscle tone, moves all 5 extremities with normal apparent strength Neck is supple, trachea midline, no shabnam LN Some residual wheezes with prolonged expiration; CTAB with sym expansion NT ND +BS no shabnam organomegaly CN2-12 wnl; no FND NC AT EOMI PERRLA Normal mood, appropriate behavior, euthymic affect No skin breakdown or rashes noted
--- NOTE | 2019-07-29 09:20 | PN ---
Progress Note (short form) - Note Progress Note: Breathing feels a little better today. Less SOB. Dry cough. No CP. Intake & Output 07/26/19 07/27/19 07/28/19 07/29/19 23:59 23:59 23:59 23:59 Intake Total 180 120 Output Total 200 200 Balance -20 -80 Weight 162 lb 164 lb Last Vital Signs Temp Pulse Resp BP Pulse Ox 97 F L 79 20 123/56 L 97 07/29/19 06:03 07/29/19 06:03 07/29/19 06:03 07/29/19 06:03 07/28/19 20:40 Active Medications Albuterol Sulfate (Ventolin 0.083% Nebulizer Soln -) 1 amp NEB Q4H PRN PRN Reason: SHORT OF BREATH/WHEEZING Albuterol/Ipratropium (Duoneb -) 1 amp NEB RQID [facility] Last Admin: 07/28/19 20:41 Dose: 1 amp Aspirin (Ecotrin -) 81 mg PO DAILY [facility] Atorvastatin Calcium (Lipitor -) 40 mg PO HS [facility] Last Admin: 07/28/19 22:00 Dose: 40 mg Enoxaparin Sodium (Lovenox -) 40 mg SQ DAILY [facility] Last Admin: 07/28/19 10:09 Dose: 40 mg Escitalopram Oxalate (Lexapro -) 10 mg PO DAILY [facility] Fluticasone Propionate (Flonase -) 2 spray NS BID [facility] Last Admin: 07/28/19 23:00 Dose: Not Given Furosemide (Lasix -) 80 mg PO DAILY [facility] Last Admin: 07/28/19 11:36 Dose: 80 mg Azithromycin (Zithromax 500mg Ivpb (Pre-Docked)) 500 mg in 250 mls @ 250 mls/ hr IVPB DAILY [facility] Last Admin: 07/28/19 10:56 Dose: 250 mls/hr Ceftriaxone Sodium 1 gm/ (Dextrose) 50 mls @ 100 mls/hr IVPB DAILY [facility]; Protocol Last Admin: 07/28/19 10:09 Dose: 100 mls/hr Methylprednisolone Sodium Succinate (Solu-Medrol -) 40 mg IVPUSH Q8H-IV QUETA Last Admin: 07/29/19 01:09 Dose: 40 mg Constitutional: Yes: NAD Eyes: Yes: Conjunctiva Clear, EOM Intact HENT: Yes: Atraumatic, Normocephalic Neck: Yes: Supple, Trachea Midline Cardiovascular: Yes: Regular Rate and Rhythm Respiratory: Yes: Few scattered Rhonchi, no wheeze ...Clubbing: No Gastrointestinal: Yes: Normal Bowel Sounds, Soft. No: Tenderness Edema: No Peripheral Pulses WNL: No Neurological: Yes: Alert, Oriented Labs: Laboratory Results - last 24 hr 07/29/19 07/29/19 06:35 06:35 WBC 8.7 RBC 4.13 Hgb 12.5 Hct 36.9 MCV 89.4 MCH 30.3 MCHC 33.9 RDW 15.0 Plt Count 280 MPV 7.6 Sodium 141 Potassium 4.0 Chloride 105 Carbon Dioxide 28 Anion Gap 8 BUN 31.3 H Creatinine 0.8 Est GFR (CKD-EPI)AfAm 93.75 Est GFR (CKD-EPI)NonAf 80.89 Random Glucose 119 H Calcium 8.6 Phosphorus 3.7 Magnesium 2.0 Total Bilirubin 0.4 AST 27 ALT 22 Alkaline Phosphatase 41 L Total Protein 5.4 L Albumin 2.8 L Assessment/Plan UTI Acute COPD Exacerbation Chronic Hypoxic Respiratory Failure CAD +Troponins likely Demand Ischemia HTN Hyperlipidemia - Can likely change to PO zithromax and Prednisone taper as the patient seems close to his baseline - inhaled bronchodilators - No smoking - Patient has home O2 (2 L) There is no Pulmonary contraindication for DC planning Dr Hudson
[2019-07-29] MEDS ORDERED: cefTRIAXone SODIUM 1 GM VIAL ONE (10:30)
[2019-07-29] MEDS ORDERED: DEXTROSE 5%-WATER - 50 ML IVPB ONE (10:30)
[2019-07-29] MEDS: ENOXAPARIN NA (PORCINE) 40 MG/0.4 ML DISP.SYRIN SQ SCH (10:58)
[2019-07-29] MEDS: CEFTRIAXONE 1 GM in DEXTROSE 5%-WATER - 50 ML IVPB SCH (10:58)
[2019-07-29] MEDS: FUROSEMIDE 40 MG TABLET (FP) PO SCH (10:58)
[2019-07-29] MEDS: ASPIRIN COATED 81 MG TABLET.EC PO SCH (10:58)
[2019-07-29] MEDS: ESCITALOPRAM OXALATE 10 MG TABLET PO SCH (10:58)
[2019-07-29] MEDS: AZITHROMYCIN IVPB 500 MG/250 ML BAG IVPB SCH (10:59)
[2019-07-29] MEDS: FLUTICASONE PROP 0.05% 16 GM NASAL SPRAY NS SCH ×2 (10:59→22:01)
--- NOTE | 2019-07-29 12:26 | PN ---
Progress Note (short form) - Note Progress Note: s: sob improving. no chest pain, palps, dizziness. edema improving Current Medications Albuterol Sulfate (Ventolin 0.083% Nebulizer Soln -) 1 amp NEB Q4H PRN PRN Reason: SHORT OF BREATH/WHEEZING Albuterol/Ipratropium (Duoneb -) 1 amp NEB RQID [facility] Last Admin: 07/29/19 07:30 Dose: 1 amp Aspirin (Ecotrin -) 81 mg PO DAILY [facility] Last Admin: 07/29/19 10:58 Dose: 81 mg Atorvastatin Calcium (Lipitor -) 40 mg PO HS [facility] Last Admin: 07/28/19 22:00 Dose: 40 mg Enoxaparin Sodium (Lovenox -) 40 mg SQ DAILY [facility] Last Admin: 07/29/19 10:58 Dose: 40 mg Escitalopram Oxalate (Lexapro -) 10 mg PO DAILY [facility] Last Admin: 07/29/19 10:58 Dose: 10 mg Fluticasone Propionate (Flonase -) 2 spray NS BID [facility] Last Admin: 07/29/19 10:59 Dose: 2 inh Furosemide (Lasix -) 80 mg PO DAILY [facility] Last Admin: 07/29/19 10:58 Dose: 80 mg Azithromycin (Zithromax 500mg Ivpb (Pre-Docked)) 500 mg in 250 mls @ 250 mls/ hr IVPB DAILY [facility] Last Admin: 07/29/19 10:59 Dose: 250 mls/hr Ceftriaxone Sodium 1 gm/ (Dextrose) 50 mls @ 100 mls/hr IVPB DAILY [facility]; Protocol Last Admin: 07/29/19 10:58 Dose: 100 mls/hr Methylprednisolone Sodium Succinate (Solu-Medrol -) 40 mg IVPUSH Q8H-IV QUETA Last Admin: 07/29/19 10:59 Dose: 40 mg Vital Signs Period Temp Pulse Resp BP Sys/Donovan Pulse Ox Last 24 Hr 97 F-98.2 F 74-88 18-22 111-143/56-77 96-98 Constitutional: Yes: Well Nourished, No Distress Eyes: No: Sclera Icterus HENT: No: Nasal Congestion Neck: No: Decreased ROM Respiratory: Yes: CTA Bilaterally (faint sounds diffusely), Wheezes (faint). No : Accessory Muscle Use, Rales Gastrointestinal: Yes: Normal Bowel Sounds. No: Distention, Hepatomegaly, Palpable Mass, Tenderness Cardiovascular: Yes: Regular Rate and Rhythm JVD: No Carotid Bruit: No PMI: Non-Displaced Heart Sounds: Yes: S1, S2. No: Gallop Murmur: No: Systolic Murmur, Diastolic Murmur Musculoskeletal: Yes: Other (No kyphosis) Extremities: No: Cool, Cyanosis Edema: Yes (2+ pretibs) Peripheral Pulses: 2+ Left Carotid, 2+ Right Carotid, 2+ Left Doralis Pedis, 2+ Right Dorsalis Pedis Integumentary: No: Jaundice Neurological: Yes: Alert, Oriented (x3) Psychiatric: No: Agitated Assessment/Plan Echo 05/12: nl LV/RV. nl valve fxn, no RVSP Stress Echo with definity contrast 06/2017: 1.20 min on rodney protocol. MPHR 115 %. Non ischemic ekg changes. tds echo images. no inducible ischemia (lack of LV augmentation noted). pear rvsp at least 69. [facility] 05/2017: subtotal OM1--Xience. remainder unchanged: 30-50% dRCA, mild pLCX, 50-60% LPL1. EDP 10, nl EF CXR: no acute process ECG: sinus, PACs, artifact tele: sinus SOB, leg swelling, advanced COPD, venous insufficiency: -wt stable, BNP 403 similar to prior values no JVD - worsening edema in setting of missed lasix doses - resumed lasix 80 mg PO daily -copd tx per primary team NSTEMI s/p PCI 2016, CAD: -trop indeterminate range (low end), flat trend, not c/w ACS (he has had these values before) -ecg non-ischemic -cont home aspirin, statin -BB dc'ed for hx COPD HTN: -stable HLD - cont statin dc tele
--- NOTE | 2019-07-29 14:54 | DS ---
Physical Exam: SUBJECTIVE: Patient seen and examined. Pt walked with PT, asymptomatic and afebrile. No overnight acute events. Denies f/c/v/d/sob/cp OBJECTIVE: Vital Signs Period Temp Pulse Resp BP Sys/Donovan Pulse Ox Last 24 Hr 97 F-98.2 F 74-88 18-22 111-143/56-77 96-98 PHYSICAL EXAM GENERAL: The patient is awake, alert, and fully oriented, in no acute distress. Appears anxious and frail EYES: PERRL, extraocular movements intact, sclera anicteric, conjunctiva clear. No ptosis. ENT: dry mucous membranes. NECK: Trachea midline, full range of motion, supple. LUNGS: Breath sounds equal, clear to auscultation bilaterally, no wheezes, crackles b/l likely from fibrosis, coarse breath sounds heard. HEART: Regular rate and rhythm, S1, S2 without murmur, rub or gallop. ABDOMEN: Soft, nontender, nondistended, normoactive bowel sounds, no guarding, EXTREMITIES: 2+ pulses, warm, well-perfused, no edema. NEUROLOGICAL: Cranial nerves II through XII grossly intact. PSYCH: Normal mood, normal affect. SKIN: Warm, dry, normal turgor, no rashes or lesions noted LABS Laboratory Results - last 24 hr 07/29/19 07/29/19 06:35 06:35 WBC 8.7 RBC 4.13 Hgb 12.5 Hct 36.9 MCV 89.4 MCH 30.3 MCHC 33.9 RDW 15.0 Plt Count 280 MPV 7.6 Sodium 141 Potassium 4.0 Chloride 105 Carbon Dioxide 28 Anion Gap 8 BUN 31.3 H Creatinine 0.8 Est GFR (CKD-EPI)AfAm 93.75 Est GFR (CKD-EPI)NonAf 80.89 Random Glucose 119 H Calcium 8.6 Phosphorus 3.7 Magnesium 2.0 Total Bilirubin 0.4 AST 27 ALT 22 Alkaline Phosphatase 41 L Total Protein 5.4 L Albumin 2.8 L Current Medications Albuterol Sulfate (Ventolin 0.083% Nebulizer Soln -) 1 amp NEB Q4H PRN PRN Reason: SHORT OF BREATH/WHEEZING Albuterol/Ipratropium (Duoneb -) 1 amp NEB RQID QUETA Last Admin: 07/29/19 12:31 Dose: 1 amp Aspirin (Ecotrin -) 81 mg PO DAILY [facility] Last Admin: 07/29/19 10:58 Dose: 81 mg Atorvastatin Calcium (Lipitor -) 40 mg PO HS [facility] Last Admin: 07/28/19 22:00 Dose: 40 mg Enoxaparin Sodium (Lovenox -) 40 mg SQ DAILY [facility] Last Admin: 07/29/19 10:58 Dose: 40 mg Escitalopram Oxalate (Lexapro -) 10 mg PO DAILY [facility] Last Admin: 07/29/19 10:58 Dose: 10 mg Fluticasone Propionate (Flonase -) 2 spray NS BID [facility] Last Admin: 07/29/19 10:59 Dose: 2 inh Furosemide (Lasix -) 80 mg PO DAILY [facility] Last Admin: 07/29/19 10:58 Dose: 80 mg Azithromycin (Zithromax 500mg Ivpb (Pre-Docked)) 500 mg in 250 mls @ 250 mls/ hr IVPB DAILY [facility] Last Admin: 07/29/19 10:59 Dose: 250 mls/hr Ceftriaxone Sodium 1 gm/ (Dextrose) 50 mls @ 100 mls/hr IVPB DAILY [facility]; Protocol Last Admin: 07/29/19 10:58 Dose: 100 mls/hr Methylprednisolone Sodium Succinate (Solu-Medrol -) 40 mg IVPUSH Q8H-IV [facility] Last Admin: 07/29/19 10:59 Dose: 40 mg Microbiology 07/27/19 15:15 Urine - Urine Clean Catch Urine Culture - Final NO GROWTH OBTAINED 07/27/19 15:15 Blood - Peripheral Venous Blood Culture - Preliminary NO GROWTH OBTAINED AFTER 24 HOURS, INCUBATION TO CONTINUE FOR 4 DAYS. 07/27/19 15:00 Blood - Peripheral Venous Blood Culture - Preliminary NO GROWTH OBTAINED AFTER 24 HOURS, INCUBATION TO CONTINUE FOR 4 DAYS. HOSPITAL COURSE: Date of Admission:07/27/19 88 y/o M, pmh of HTN, HLD, CAD (stent placed 2017), CHF and COPD (on 2L O2 at home) presented to the ER with complaints of worsening SOB, cough for 1 week, and dysuria for the 1 week admitted for possible UTI and acute COPD exacerbation. Pt was immediately started on dounebs, albuterol, IV solumedrol Q8H, flonase, Azithromyicn and ceftriaxone. His CXR showed no infiltrates, some chronic fibrotic changes were noticed, clear angles. Pt is now sating at 97% on 2L NC, pt has home oxygen. His LE was swollen and skin changes were evident, which is a chronic venous condition, for which his home dose of 80mg lasix was resumed. His UA was 3+ blood, #+ LE, but UCx was negative and pt was asymptomatic with no clinical symptoms of UTI, therefore this was likely asymptomatic bacteruria which would not need abx. He walked with physical therapy and was accepted for VNS. Pt declined pulmonary rehab outpt and stated that he would like to return home. Pt was discharged home on Azithromycin 500 mg for one more day, Vantin 200 mg BID for 3 more days and Medrol dose pack and encouraged to continue his Lasix 80 mg PO. CXR shows no infiltrates, some chronic fibrotic changes, clear angles echo in 05/12 showed LVEF 50-55% with impaired LV relaxation Stress Echo with definity contrast 06/2017: 1.20 min on rodney protocol. MPHR 115% . Non ischemic ekg changes. No inducible ischemia (lack of LV augmentation noted ). pear rvsp at least 69. Date of Discharge: 07/29/19 Minutes to complete discharge: 40 Discharge Summary Problems reviewed: Yes Reason For Visit: UTI ,INCREASED OXYGEN DEMAND,ACUTE EXACERBATION Condition: Improved - Instructions Diet, Activity, Other Instructions: You were admitted for shortness of breath While in the hospital, we evaluated you with lab work, blood work and X rays of your chest. We found that your symptoms were likely caused by an exacerbation of your COPD. We treated you with medications and your symptoms improved significantly. To complete the treatment of your COPD exacerbation, please take the following medications Azithromycin 500 mg for one more day, which would be tomorrow Vantin 200 mg twice a day for 3 more days starting tomorrow ending on Saturday Please also take the Medrol Dose pack as instructed on the box. If you have any questions, you may contact your pharmacy. Please continue to take your Lasix 80 mg home dose daily On our imaging, we also found a Lung Nodule, which you were already aware of. You will need to follow up with your Shot Hole Driller for a CAT scan of your chest in 5-6 months. Please take all your medications as prescribed Please follow up with your inspector aluminum boat, Dr. Smallwood, within 1 week Please follow up with your credit checker, Dr. Orr within 1 week Please follow up with your primary care physician, Dr. Dahl within 1 week Return to the emergency room, if you experience worsening of your symptoms, chest pain, shortness of breath, abdominal pain or worsening of any of your condition. Referrals: Neeraj Smallwood MD [Staff Physician] - 1 Week Nile Dahl MD [Primary Care Provider] - 1 Week Everett Orr MD [Staff Physician] - 1 Week Disposition: VNS/HOME HEALTH CARE - Home Medications Comprehensive Discharge Medication List: Ambulatory Orders Atorvastatin Ca [Lipitor] 40 mg PO HS tablet 09/04/17 Budesonide/Formeterol Fumarate [SYMBICORT 80/4.5mcg -] 2 puff IH BID inhaler Escitalopram Oxalate [Lexapro -] 10 mg PO DAILY tablet 09/04/17 Tiotropium [place] [Spiriva] 1 puff IH DAILY inh 09/04/17 Aspirin [Adult Aspirin Regimen] 81 mg PO DAILY 05/15/19 Furosemide [Lasix -] 80 mg PO DAILY #30 tablet 06/28/19 Famotidine [Pepcid -] 40 mg PO DAILY 07/27/19 Azithromycin [Zithromax] 500 mg PO DAILY #1 tablet 07/29/19 Cefpodoxime Proxetil [Vantin -] 200 mg PO BID #6 tablet 07/29/19 Furosemide [Lasix] 80 mg PO DAILY #30 tablet 07/29/19 Methylprednisolone [Medrol Dose [place]] 4 mg PO ASDIR #21 tablet 07/29/19 Roflumilast [Daliresp] 500 mg PO DAILY 07/29/19 This patient is new to me today: Yes Date on this admission: 07/29/19 Emergency Visit: Yes ED Registration Date: 07/27/19 Care time: The patient presented to the Emergency Department on the above date and was hospitalized for further evaluation of their emergent condition. Critical Care patient: No - Discharge Referral Referred to [facility] Med P.C.: No ATTENDING PHYSICIAN STATEMENT I saw and evaluated the patient. I reviewed the resident's note and discussed the case with the resident. I agree with the resident's findings and plan as documented. SUBJECTIVE: OBJECTIVE: ASSESSMENT AND PLAN:
[2019-07-29] MEDS: ATORVASTATIN CA 40 MG TABLET (FP) PO SCH (21:18)
[2019-07-30] MEDS: ALBUTEROL SO4 2.5/IPRATROPIUM 0.5 INH SOL 3 ML VIAL.NEB. NEB SCH (07:15)
[2019-07-30] MEDS ORDERED: PT OWN MED DRAWER 7, Y5N ONE (09:13)
[2019-07-30] MEDS: FUROSEMIDE 40 MG TABLET (FP) PO SCH (09:16)
[2019-07-30] MEDS: ASPIRIN COATED 81 MG TABLET.EC PO SCH (09:16)
[2019-07-30] MEDS: ESCITALOPRAM OXALATE 10 MG TABLET PO SCH (09:16)
[2019-07-30] MEDS: FLUTICASONE PROP 0.05% 16 GM NASAL SPRAY NS SCH (09:24)
[2019-07-30] MEDS: ENOXAPARIN NA (PORCINE) 40 MG/0.4 ML DISP.SYRIN SQ SCH (09:24)
[2019-07-30] MEDS: AZITHROMYCIN IVPB 500 MG/250 ML BAG IVPB SCH (09:25)
[2019-07-30] MEDS: CEFTRIAXONE 1 GM in DEXTROSE 5%-WATER - 50 ML IVPB SCH (09:25)
[2019-07-30 10:23] VITALS: BP 111/64; PULSE 64; TEMP 97.3
--- NOTE | 2019-07-30 11:07 | PN ---
Progress Note (short form) - Note Progress Note: s: no chest pain, palps, dizzy, sob Vital Signs Period Temp Pulse Resp BP Sys/Donovan Pulse Ox Last 24 Hr 97.3 F-99.9 F 64-82 20-22 111-131/55-80 96-97 Constitutional: Yes: Well Nourished, No Distress Eyes: No: Sclera Icterus HENT: No: Nasal Congestion Neck: No: Decreased ROM Respiratory: Yes: CTA Bilaterally nl eff Gastrointestinal: Yes: Normal Bowel Sounds. No: Distention, Hepatomegaly, Palpable Mass, Tenderness Cardiovascular: Yes: Regular Rate and Rhythm JVD: No Carotid Bruit: No PMI: Non-Displaced Heart Sounds: Yes: S1, S2. No: Gallop Murmur: No: Systolic Murmur, Diastolic Murmur Extremities: No: Cool, Cyanosis Edema: no Peripheral Pulses: 2+ Left Carotid, 2+ Right Carotid, 2+ Left Doralis Pedis, 2+ Right Dorsalis Pedis Integumentary: No: Jaundice Neurological: Yes: Alert, Oriented (x3) Psychiatric: No: Agitated CBC, BMP 07/29/19 06:35 07/29/19 06:35 Assessment/Plan Echo 05/12: nl LV/RV. nl valve fxn, no RVSP Stress Echo with definity contrast 06/2017: 1.20 min on rodney protocol. MPHR 115 %. Non ischemic ekg changes. tds echo images. no inducible ischemia (lack of LV augmentation noted). pear rvsp at least 69. [facility] 05/2017: subtotal OM1--Xience. remainder unchanged: 30-50% dRCA, mild pLCX, 50-60% LPL1. EDP 10, nl EF CXR: no acute process ECG: sinus, PACs, artifact tele: sinus, artifact SOB, leg swelling, advanced COPD, venous insufficiency: -wt stable, BNP 403 similar to prior values no JVD - worsening edema in setting of missed lasix doses - resumed lasix 80 mg PO daily, vol stable, ok for dc from cardiac pov -copd tx per primary team NSTEMI s/p PCI 2016, CAD: -trop indeterminate range (low end), flat trend, not c/w ACS (he has had these values before) -ecg non-ischemic -cont home aspirin, statin -BB dc'ed for hx COPD HTN: -stable HLD - cont statin dc tele
== END 2019-07-30 10:47 | disposition home health service (06) | DRG 191 ==
LOC: JER 13:02 → JERBED 19:19 → J4W 07-28 20:24
PROVIDERS: ADMIT Internal Medicine; ATTEND Internal Medicine
DX: J44.1 Chronic obstructive pulmonary disease with (acute) exacerbation (principal); N39.0 Urinary tract infection, site not specified; J96.11 Chronic respiratory failure with hypoxia; I24.8 Other forms of acute ischemic heart disease; I25.10 Atherosclerotic heart disease of native coronary artery without angina pectoris; E78.5 Hyperlipidemia, unspecified; Z95.5 Presence of coronary angioplasty implant and graft; I10 Essential (primary) hypertension; R91.8 Other nonspecific abnormal finding of lung field
CPT/HCPCS: 36415; 71045-TC-FY; 80053; 81003; 82550; 83605; 83735; 83880; 84100; 84484; 85025; 85027; 85610; 85730; 87040; 87086; 93005; 93010; 94640; 94761; 97116-GP; 97161-GP; 99285-25

== ENCOUNTER 2019-12-20 16:51 | Inpatient (IN) | payer OTHER, BC ==
--- NOTE | 2019-12-20 17:07 | PDOC ---
History of Present Illness - General Chief Complaint: Respiratory Stated Complaint: PNEUMONIA Time Seen by Provider: 12/20/19 17:06 History Source: Patient - History of Present Illness Initial Comments: 12/20/19 17:06 89M w/hx COPD, HTN, HLD, CAD, recent discharge after admission s/p fall (11/24/2019-11/27/2019) p/w 3 days of generalized fatigue, cough, weakness. He reports waking up 3 days ago feeling fatigued without improvement of symptoms to date. He reports being prescribed abx for his symptoms, unable to recall which ones. He denies any fevers, chills, nausea, vomiting, sob, or chest pain. PCP: Dr. Dahl Past History - Medical History Allergies/Adverse Reactions: Allergies Allergy/AdvReac Type Severity Reaction Status Date / Time shrimp Allergy Severe Swelling Verified 12/20/19 16:55 shrimp Allergy Unknown lip Uncoded 12/20/19 16:55 swelling Home Medications: Ambulatory Orders Acetaminophen [Tylenol Extra Strength] 1 gm PO TID PRN 12/20/19 Albuterol Sulfate [Proair Hfa] 8.5 gm IH Q4H PRN 12/20/19 Aspirin Coated [Ecotrin -] 81 mg PO DAILY 12/20/19 Atorvastatin Calcium 40 mg PO HS 12/20/19 Budesonide/Formeterol Fumarate [SYMBICORT 80/4.5mcg -] 2 inh PO BID 12/20/19 Famotidine [Pepcid] 40 mg PO DAILY 12/20/19 Furosemide [Lasix] 80 mg PO DAILY 12/20/19 Ipratropium 0.02% Nebulizer [Atrovent] 1 neb NEB TID 12/20/19 Methocarbamol [Robaxin -] 500 mg PO TID 12/20/19 Roflumilast [Daliresp] 500 mcg PO DAILY 12/20/19 Sennosides [Senna -] 1 tab PO HS 12/20/19 Zoloft - 25 mg PO DAILY 12/20/19 clonazePAM [Klonopin -] 0.5 mg PO TID 12/20/19 Anemia: No Asthma: No Cancer: No Cardiac Disorders: Yes (Chest Pain, SC with stents) CVA: No COPD: Yes (2L O2 AT HOME) CHF: No DVT: No Dementia: No Diabetes: No Dialysis: No GI Disorders: No Disorders: Yes (prostate cyst) HTN: Yes Hypercholesterolemia: Yes Kidney Stones: No Liver Disease: No Psychiatric Problems: Yes (anxiety, depression) Seizures: No Thyroid Disease: No Lung CA: No - Surgical History Abdominal Surgery: No Appendectomy: No Cardiac Surgery: Yes (Cardiac Cath 2014, stents 2017) Cholecystectomy: No Gastric Stapling: No GI Surgery: No Lung Surgery: No Neurologic Surgery: No Orthopedic Surgery: No - Immunization History Td Vaccination: Yes TDAP Vaccination: Yes Immunization Up to Date: Yes - Psycho-Social/Smoking History Smoking Status: Yes Smoking History: Former smoker Have you smoked in the past 12 months: No Number of Cigarettes Smoked Daily: 0 If you are a former smoker, when did you quit?: 40 years ago Cigars Per Day: 0 Review of Systems - Review of Systems Able to Perform ROS?: Yes Comments:: 12/20/19 19:24 GENERAL/CONSTITUTIONAL: Generalized weakness. No fever or chills. HEAD, EYES, EARS, NOSE AND THROAT: No change in vision. No ear pain or discharge. No sore throat. CARDIOVASCULAR: No chest pain or shortness of breath RESPIRATORY: Cough. No wheezing, or hemoptysis. GASTROINTESTINAL: No nausea, vomiting, diarrhea or constipation. GENITOURINARY: No dysuria, frequency, or change in urination. MUSCULOSKELETAL: No joint or muscle swelling or pain. No neck or back pain. SKIN: No rash NEUROLOGIC: No headache, vertigo, loss of consciousness, or change in streng th/sensation. ENDOCRINE: No increased thirst. No abnormal weight change HEMATOLOGIC/LYMPHATIC: No anemia, easy bleeding, or history of blood clots. ALLERGIC/IMMUNOLOGIC: No hives or skin allergy. *Physical Exam - Physical Exam 12/20/19 19:26 GENERAL: Coughing intermittently. Awake, alert, and fully oriented, in no acute distress HEAD: No signs of trauma, normocephalic, atraumatic EYES: PERRLA, EOMI, sclera anicteric, conjunctiva clear ENT: Auricles normal inspection, hearing grossly normal, nares patent, oropharynx clear without exudates. Moist mucosa NECK: Normal ROM, supple, no lymphadenopathy, JVD, or masses LUNGS: Diminished lung sounds bilaterally. No distress, speaks full sentences HEART: Regular rate and rhythm, normal S1 and S2, no murmurs, rubs or gallops, peripheral pulses normal and equal bilaterally. ABDOMEN: Soft, nontender, normoactive bowel sounds. No guarding, no rebound. No masses EXTREMITIES : Normal inspection, Normal range of motion, no edema. No clubbing or cyanosis NEUROLOGICAL: Cranial nerves II through XII grossly intact. Normal speech, normal gait, no focal sensorimotor deficits SKIN: Warm, Dry, normal turgor, no rashes or lesions noted ED Treatment Course - LABORATORY CBC & Chemistry Diagram: 12/20/19 17:45 12/20/19 17:45 Medical Decision Making - Medical Decision Making 12/20/19 19:27 89M w/hx COPD, HTN, HLD, CAD, recent discharge after admission s/p fall p/w 3 d ays generalized weakness. Ddx pneumonia, COPD exacerbation, ACS. Plan: CBC CMP EKG CXR Cardiac profile Azithromycin 500mg Ceftriaxone 1g 1L NS Duoneb x3 Dispo: Admit Discharge - Discharge Information Problems reviewed: Yes Clinical Impression/Diagnosis: COPD exacerbation Pneumonia Qualifiers: Pneumonia type: due to unspecified organism Laterality: right Lung location: lower lobe of lung Qualified Code(s): J18.9 - Pneumonia, unspecified organism Condition: Stable - Admission Yes - Follow up/Referral - Patient Discharge Instructions - Post Discharge Activity
--- NOTE | 2019-12-20 17:29 | PDOC ---
Attending Attestation - Resident Resident Name: Elliot Castro - HPI HPI: 12/20/19 17:54 Pt presents to the ED complaining of shortness of breath and productive cough. Attempted outpatient antibiotics at home without relief. Denies fever. Recent history of multiple rib fractures on 11/26. History of COPD - Physicial Exam PE: 12/20/19 18:08 Agree with resident exam. CV: rrr no m/r/g Pulm: CTA b/l, tachypneic. Abdomen: soft, non tender, non distended, non guarding or rebound. - Medical Decision Making 12/20/19 18:10 Pt presents to the ED complaining of shortness of breath and cough. Differential includes PNA, COIVD, COPD exacerbation, less likely CHf. will check lab and CXR, treat for COPD exacerbation and and PNA and admit to medicine. Discharge - Discharge Information Problems reviewed: Yes Clinical Impression/Diagnosis: Pneumonia, COPD exacerbation Condition: Improved Disposition: VNS/HOME HEALTH CARE - Follow up/Referral - Patient Discharge Instructions - Post Discharge Activity
[2019-12-20] MEDS ORDERED: CEFTRIAXONE 1,000 MG in DEXTROSE 5%-WATER - 50 ML IVPB ONE (17:32)
[2019-12-20] MEDS ORDERED: AZITHROMYCIN IVPB 500 MG in DEXTROSE 5%-WATER - 250 ML IVPB ONE (17:32)
[2019-12-20] MEDS ORDERED: methylPREDNISolone NA SUCC 125 MG/2 ML VIAL IVPUSH ONE (17:32)
[2019-12-20] MEDS ORDERED: ALBUTEROL SO4 2.5/IPRATROPIUM 0.5 INH SOL 3 ML VIAL.NEB. NEB ONE ×2 (17:34→17:44)
[2019-12-20] MEDS ORDERED: methylPREDNISolone NA SUCC 125 MG/2 ML VIAL ONE (17:44)
[2019-12-20] MEDS ORDERED: AZITHROMYCIN IVPB 500 MG/250 ML BAG IVPB ONE (17:45)
[2019-12-20] MEDS ORDERED: CEFTRIAXONE 1 GM/50 ML BAG ONE (17:45)
[2019-12-20 17:52] LABS: BASO % 0.6 % (0-2.0); EOS % 2.3 % (0-4.5); HEMATOCRIT 39.9 % (35.4-49); HEMOGLOBIN 13.3 GM/dL (11.7-16.9); LYMPH % 10.4 % (8-40); MCH 30.5 pg (25.7-33.7); MCHC 33.4 g/dl (32.0-35.9); MEAN CELL VOLUME 91.3 fl (80-96); MEAN PLT VOLUME 6.9 fl (7.5-11.1); MONO % 7.6 % (3.8-10.2); NEUT % 79.1 % (42.8-82.8); PLATELET COUNT 264 K/MM3 (134-434); RBC 4.37 M/mm3 (4.00-5.60); RDW 16.5 % (11.9-15.9); WHITE BLOOD COUNT 9.8 K/mm3 (4.0-10.0)
[2019-12-20 17:53] LABS: VENOUS BASE EXCESS 5.1 mmol/L (-2-2); VENOUS O2 SATURATION 64.8 % (70-80); VENOUS PCO2 49.6 mmHg (38-52); VENOUS PH 7.412 (7.310-7.410)
[2019-12-20] MEDS ORDERED: SODIUM CHLORIDE 0.9% 500 ML INFUS.BAG IV ONE (17:56)
[2019-12-20 18:00] LABS: INR 1.15 (0.83-1.09); PROTHROMBIN TIME (PATIENT) 13.6 SEC (9.7-13.0)
[2019-12-20 18:02] LABS: ACTIVATED PTT 33.4 SECONDS (25.2-36.5)
[2019-12-20 18:11] LABS: URINE APPEARANCE Clear; URINE BILIRUBIN Negative (NEGATIVE); URINE COLOR Yellow; URINE GLUCOSE (UA) Negative (NEGATIVE); URINE KETONE Negative (NEGATIVE); URINE LEUK ESTERASE Negative (NEGATIVE); URINE NITRITE Negative (NEGATIVE); URINE PROTEIN Negative (NEGATIVE); URINE UROBILINOGEN 0.2 mg/dL (0.2-1.0)
[2019-12-20 18:15] LABS: EPI CELLS 5.3 /uL (0-25.1); HYALINE CASTS 0.25 /uL (0-3.1); URINE BACTERIA 0.9 /uL (0-1359); URINE RBC 10.7 /uL (0-23.9)
[2019-12-20 18:49] LABS: ALBUMIN 2.8 g/dl (3.4-5.0); BILIRUBIN,TOTAL 0.8 mg/dL (0.2-1); BLOOD UREA NITROGEN 16.5 mg/dL (7-18); CALCIUM 8.7 mg/dL (8.5-10.1); CREATININE 0.8 mg/dL (0.55-1.3); POTASSIUM 4.1 mmol/L (3.5-5.1); TOT PROT 5.9 g/dl (6.4-8.2)
--- NOTE | 2019-12-20 20:06 | PN ---
Teaching Attending Note Name of Resident: Omid Kwan ATTENDING PHYSICIAN STATEMENT I saw and evaluated the patient. I reviewed the resident's note and discussed the case with the resident. I agree with the resident's findings and plan as documented. SUBJECTIVE: Patient is an 89 year old man with a PMH of HTN, HLD, COPD (home O2 2L), CAD (stent in 2017), BLE chronic venous insufficiency who presents from [facility] to the ER eith three days of generalized fatigue, productive cough and weakness. He reports waking up three days ago feeling fatigued without improvement of symptoms to date. Cough is productive of white sputum and he has had runny nose, intermittent SOB and dyspnea on exertion. He reports being prescribed an antibiotic for his symptoms but does not remember the name. Was recently discharged after admission for mechanical fall and left 7th rib fracture (11/24/2019-11/27/2019). Patient tested negative for COVID-19 infection on 11/24/2019. Patient denies fevers, chills, nausea, vomiting, hemoptysis, headache, abdominal pain, palpitations, chest pain, dysuria or diarrhea. 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 Denies alcohol, tobacco or illicit drug use. No sick contacts or recent travels. Family history is unremarkable. OBJECTIVE: Alert Vital Signs Period Temp Pulse Resp BP Sys/Donovan Pulse Ox Last 24 Hr 98.7 F 77 17 103/55 100-100 HEENT: No Jaundice, eye redness or discharge, PERRLA, EOMI. Normocephalic, atraumatic. External ears are normal and hearing is grossly intact. No nasal discharge. Neck: Supple, nontender. No palpable adenopathy or thyromegaly. No JVD Chest: Good effort. Diffuse rhonchi, no wheezing. Clear to percussion. Heart: Regular. No S3, rub or murmur Abdomen: Not distended, soft, nontender and no HSM. No rebound or guarding. Normal bowel sounds. Ext: Peripheral pulses intact. Dry scaly legs with hyperpigmented skin. Leg edema. Skin: Warm and dry. No petechiae, rash or ecchymosis. Neuro: Alert. Oriented x3. CN 2-12 grossly intact. Sensation grossly intact in all four extremities and DTR are symmetric. Psych: Appropriate mood and affect. Good insight. Home Medications Medication Instructions Recorded Acetaminophen [Tylenol Extra 1 gm PO TID PRN 12/20/19 Strength] Albuterol Sulfate [Proair Hfa] 8.5 gm IH Q4H PRN 12/20/19 Aspirin Coated [Ecotrin -] 81 mg PO DAILY 12/20/19 Atorvastatin Calcium 40 mg PO HS 12/20/19 Budesonide/Formeterol Fumarate 2 inh PO BID 12/20/19 [SYMBICORT 80/4.5mcg -] Famotidine [Pepcid] 40 mg PO DAILY 12/20/19 Furosemide [Lasix] 80 mg PO DAILY 12/20/19 Ipratropium 0.02% Nebulizer 1 neb NEB TID 12/20/19 [Atrovent] Methocarbamol [Robaxin -] 500 mg PO TID 12/20/19 Roflumilast [Daliresp] 500 mcg PO DAILY 12/20/19 Sennosides [Senna -] 1 tab PO HS 12/20/19 Zoloft - 25 mg PO DAILY 12/20/19 clonazePAM [Klonopin -] 0.5 mg PO TID 12/20/19 Abnormal Lab Results 12/20/19 12/20/19 12/20/19 17:45 17:45 17:45 RDW 16.5 H MPV 6.9 L PT with INR 13.60 H INR 1.15 H VBG pH VBG HCO3 VBG O2 Sat ([place]iley) VBG Base Excess AST 53 H Troponin I 0.08 H Total Protein 5.9 L Albumin 2.8 L 12/20/19 17:45 RDW MPV PT with INR INR VBG pH 7.412 H VBG HCO3 30.9 H VBG O2 Sat (Wiley) 64.8 L VBG Base Excess 5.1 H AST Troponin I Total Protein Albumin Current Medications Generic Name Dose Route Start Last Admin Trade Name Freq PRN Reason Stop Dose Admin Albuterol Sulfate 2 puff 12/20/19 21:53 Ventolin Hfa Inhaler - IH Q4H PRN SHORT OF BREATH/WHEEZING Albuterol/Ipratropium 1 amp 12/20/19 22:00 Duoneb - NEB Q6H QUETA Aspirin 81 mg 12/21/19 10:00 Ecotrin - PO DAILY QUETA Atorvastatin Calcium 40 mg 12/21/19 22:00 Lipitor - PO HS QUETA Budesonide/Formoterol Fumarate 2 puff 12/21/19 10:00 Symbicort 80/4.5mcg - IH BID QUETA Docusate Sodium 100 mg 12/20/19 21:34 Colace - PO BID PRN CONSTIPATION Enoxaparin Sodium 40 mg 12/21/19 10:00 Lovenox - SQ DAILY QUETA Famotidine 40 mg 12/21/19 10:00 Pepcid - PO DAILY QUETA Furosemide 80 mg 12/21/19 10:00 Lasix - PO DAILY QUEAT Azithromycin 250 mg/ Dextrose 250 mls @ 250 mls/hr 12/21/19 10:00 IVPB DAILY QUETA Ceftriaxone Sodium 1,000 mg/ 50 mls @ 100 mls/hr 12/21/19 10:00 Dextrose IVPB DAILY QUETA Methocarbamol 500 mg 12/21/19 06:00 Robaxin - PO TID QUETA Methylprednisolone Sodium Succinate 60 mg 12/21/19 02:00 Solu-Medrol - IVPUSH Q8H-IV QUETA Roflumilast 500 mcg 12/21/19 10:00 Daliresp PO DAILY QUETA Senna 2 tab 12/20/19 21:34 Senna - PO HS PRN CONSTIPATION Sertraline HCl 25 mg 12/21/19 10:00 Zoloft - PO DAILY [facility] Tiotropium [place] 2 puff 12/21/19 10:00 Spiriva Respimat IH DAILY [facility] ASSESSMENT AND PLAN: 1. COPD Exacerbation/Rule out COVID-19 infection - No obvious precipitating factor for COPD exacerbation. CXR shows diffuse increased interstitial markings and fibrotic changes, most marked in the RLL and bilateral pleural effusion - unchanged compared to CXR from 07/27/2019. Viral testing for COVID-19 ordered and patient placed on airborne, droplet and contact isolation. Started on supplemental oxygen via nasal cannula. ER staff prescribed IV Ceftriaxone, Azithromycin, Duoneb, Solumedrol and IV NS for the patient. Consult Pulmonary. EKG shows NSR at 78/minute and QTc 462 with possible anterior infarct, age undetermined. Initial troponin is elevated and is likely due to demand ischemia. Troponin was also elevated during his most recent admission and peaked at 0.34 on 11/25/2019. Will admit to telemetry, trend troponin, get ECHO, treat patient with Duoneb, Symbicort, Solumedrol 60 mg q 8 hours, Zinc sulfate, Pepcid, Vitamin C, IV Rocephin and Azithromycin, Tylenol PRN and consult ID. Will repeat urinalysis to monitor mild hematuria in view of recent fall. Will continue comprehensive care for all of patients comorbid conditions. 2. Hypoalbuminemia - Possibly due to combined effects of malnutrition and inflammation associated with comorbid conditions. Will ensure adequate dietary protein intake and also consult flat hammerer. 3. Hypertension Will restart suitable outpatient antihypertensive drugs when clinically appropriate. Subsequently, will revise regimen to ensure [id number] excellent BP control. Patient counseled on the injurious effects of uncontrolled hypertension. Nonpharmacologic measures to control hypertension like weight loss, salt restriction and exercise stressed. Importance of adherence to treatment regimen and attainment of normotension emphasized. 4. DVT prophylaxis - Lovenox 40 mg SQ q 24 hours. 5. Advance directives - Full code
[2019-12-20] MEDS ORDERED: DOCUSATE SODIUM 100 MG CAPSULE (FP) PO PRN (21:34)
[2019-12-20] MEDS ORDERED: SENNOSIDES 8.6MG TABLET (FP) PO PRN (21:34)
--- NOTE | 2019-12-20 21:34 | HP ---
CHIEF COMPLAINT: cough PCP: Hesham HISTORY OF PRESENT ILLNESS: 89M w/ pmh HTN, HLD, COPD(home 2L O2), CAD(stent, 2017), BLE chronic venous insufficiency(on lasix) presented to [facility] from [facility] [address] for complaint of fatigue, cough with white sputum. Has had intermittent episodes of cough w/ white sputum multiple times throughout the year. Thinks it's related to allergies. Has had runny nose x3days. Thinks his fatigue is related to xanax, that was given to him at the [facility]. Denies fever, chills. Thinks his legs were swollen today but improved since having them elevated in the ED. Denies having sick contacts at STR. At baseline, has SOB while walking up stairs. Can ambulate to the restroom w/o SOB. Previous hopsitalization(11/23 - 11/26) for mechanical fall sustaining L-sided rib fracture and got ACS w/u for elevated troponin. Has had multiple COPDe in the past year. Walks with walker. 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 Prior to STR, was living with . Able to perform ADLs. ER course was notable for: (1) Tmax 98.7F, HR 77, 98%(4L NC) (2) WBC 9.8(79% neutrophils) (3) troponin 0.08 (4) UA: neg nitrite, neg LE, WBC 5, bact 0.9 (5) CXR: interstitial lung disease, possible development of Right basilar infiltrates and small pleural effusion (6) solumedrol 125mg, ceftriaxone 1g, azithro 500, NS x1L, duoneb Recent Travel: denies PAST MEDICAL HISTORY: as above PAST SURGICAL HISTORY: cardiac stent Social History: Smokinppd from 20y/o until 52s y/o(quit 30ys prior) Alcohol: former social drinker Drugs: denies Allergies shrimp Allergy (Severe, Verified 12/20/19 16:55) Swelling shrimp Allergy (Unknown, Uncoded 12/20/19 16:55) lip swelling HOME MEDICATIONS: Home Medications Medication Instructions Recorded Acetaminophen [Tylenol Extra 1 gm PO TID PRN 12/20/19 Strength] Albuterol Sulfate [Proair Hfa] 8.5 gm IH Q4H PRN 12/20/19 Aspirin Coated [Ecotrin -] 81 mg PO DAILY 12/20/19 Atorvastatin Calcium 40 mg PO HS 12/20/19 Budesonide/Formeterol Fumarate 2 inh PO BID 12/20/19 [SYMBICORT 80/4.5mcg -] Famotidine [Pepcid] 40 mg PO DAILY 12/20/19 Furosemide [Lasix] 80 mg PO DAILY 12/20/19 Ipratropium 0.02% Nebulizer 1 neb NEB TID 12/20/19 [Atrovent] Methocarbamol [Robaxin -] 500 mg PO TID 12/20/19 Roflumilast [Daliresp] 500 mcg PO DAILY 12/20/19 Sennosides [Senna -] 1 tab PO HS 12/20/19 Zoloft - 25 mg PO DAILY 12/20/19 clonazePAM [Klonopin -] 0.5 mg PO TID 12/20/19 REVIEW OF SYSTEMS CONSTITUTIONAL: loss of appetite Absent: fever, chills, diaphoresis, generalized weakness, malaise, loss of appetite, weight change HEENT: Absent: rhinorrhea, nasal congestion, throat pain, throat swelling, difficulty swallowing, mouth swelling, ear pain, eye pain, visual changes CARDIOVASCULAR: edema of legs Absent: chest pain, syncope, palpitations, irregular heart rate, lightheadedness RESPIRATORY: cough, white sputum, intermittent SOB Absent: , dyspnea with exertion, orthopnea, wheezing, stridor, hemoptysis GASTROINTESTINAL: Absent: abdominal pain, abdominal distension, nausea, vomiting, diarrhea, constipation, melena, hematochezia GENITOURINARY: Absent: dysuria, frequency, urgency, hesitancy, hematuria, flank pain, genital pain MUSCULOSKELETAL: Absent: myalgia, arthralgia, joint swelling, back pain, neck pain SKIN: Absent: rash, itching, pallor HEMATOLOGIC/IMMUNOLOGIC: Absent: easy bleeding, easy bruising, lymphadenopathy, frequent infections ENDOCRINE: Absent: unexplained weight gain, unexplained weight loss, heat intolerance, cold intolerance NEUROLOGIC: Absent: headache, focal weakness or paresthesias, dizziness, unsteady gait, seizure, mental status changes, bladder or bowel incontinence PSYCHIATRIC: Absent: anxiety, depression, suicidal or homicidal ideation, hallucinations. PHYSICAL EXAMINATION Vital Signs - 24 hr 12/20/19 12/20/19 12/20/19 17:00 17:05 21:06 Temperature 98.7 F Pulse Rate 77 Pulse Rate [ 93 H Apical] Respiratory 17 24 H Rate Blood Pressure 103/55 L Blood Pressure 102/56 L [Right Arm] O2 Sat by Pulse 100 100 98 Oximetry (%) GENERAL: Awake, alert, and fully oriented, in no acute distress. HEAD: NC/AT. Severe temporal wasting EYES: sclera anicteric, conjunctiva clear and w/o pallor. EARS, NOSE, THROAT: oropharynx clear without exudates. Moist mucous membranes. NECK:supple without lymphadenopathy, JVD, or masses. LUNGS: b/l ronchi and coarse BS throughout both lungs, more severe in bases. No accessory muscle use. No Tenderness of anterior chest wall. 4L O2 NC, 98% HEART: Regular rate and rhythm, normal S1 and S2 without murmur, rub or gallop. ABDOMEN: Soft, ND, no guarding, no rebound. MUSCULOSKELETAL: Normal range of motion at all joints. No bony deformities or tenderness. UPPER EXTREMITIES: 2+ pulses, warm, well-perfused. No cyanosis. No clubbing. No peripheral edema. LOWER EXTREMITIES: 2+ pulses, warm, well-perfused. No calf tenderness. Hyperpigm ented lower legs with scaly skin, no open wounds. 1+ pitting edema of dependent calf fluid. Toenails w/o yellowing, scaling NEUROLOGICAL: Normal speech. Hard of hearing. Moving all extremities w/o dif ficulty Laboratory Results - last 24 hr 12/20/19 12/20/19 12/20/19 17:45 17:45 17:45 WBC 9.8 RBC 4.37 Hgb 13.3 Hct 39.9 MCV 91.3 MCH 30.5 MCHC 33.4 RDW 16.5 H Plt Count 264 D MPV 6.9 L Absolute Neuts (auto) 7.8 Neutrophils % 79.1 Lymphocytes % 10.4 D Monocytes % 7.6 Eosinophils % 2.3 Basophils % 0.6 Nucleated RBC % 0 PT with INR 13.60 H INR 1.15 H PTT (Actin FS) 33.4 VBG pH POC VBG pCO2 POC VBG pO2 VBG HCO3 VBG O2 Sat (Wiley) VBG Base Excess Sodium 140 Potassium 4.1 Chloride 102 Carbon Dioxide 29 Anion Gap 9 BUN 16.5 Creatinine 0.8 Est GFR (CKD-EPI)AfAm 93.09 Est GFR (CKD-EPI)NonAf 80.32 Random Glucose 90 Calcium 8.7 Total Bilirubin 0.8 AST 53 H ALT 28 Alkaline Phosphatase 83 Creatine Kinase 141 Troponin I 0.08 H Total Protein 5.9 L Albumin 2.8 L Urine Color Urine Appearance Urine pH Ur Specific [place] Urine Protein Urine Glucose (UA) Urine Ketones Urine Blood Urine Nitrite Urine Bilirubin Urine Urobilinogen Ur Leukocyte Esterase Urine WBC (Auto) Urine RBC (Auto) Urine Casts (Auto) U Epithel Cells (Auto) Urine Bacteria (Auto) 12/20/19 12/20/19 17:45 18:00 WBC RBC Hgb Hct MCV MCH MCHC RDW Plt Count MPV Absolute Neuts (auto) Neutrophils % Lymphocytes % Monocytes % Eosinophils % Basophils % Nucleated RBC % PT with INR INR PTT (Actin FS) VBG pH 7.412 H POC VBG pCO2 49.6 POC VBG pO2 33.8 VBG HCO3 30.9 H VBG O2 Sat (Wiley) 64.8 L VBG Base Excess 5.1 H Sodium Potassium Chloride Carbon Dioxide Anion Gap BUN Creatinine Est GFR (CKD-EPI)AfAm Est GFR (CKD-EPI)NonAf Random Glucose Calcium Total Bilirubin AST ALT Alkaline Phosphatase Creatine Kinase Troponin I Total Protein Albumin Urine Color Yellow Urine Appearance Clear Urine pH 6.0 Ur Specific [place] 1.020 Urine Protein Negative Urine Glucose (UA) Negative Urine Ketones Negative Urine Blood Trace-intact Urine Nitrite Negative Urine Bilirubin Negative Urine Urobilinogen 0.2 Ur Leukocyte Esterase Negative Urine WBC (Auto) 5.0 Urine RBC (Auto) 10.7 Urine Casts (Auto) 0.25 U Epithel Cells (Auto) 5.3 Urine Bacteria (Auto) 0.9 ASSESSMENT/PLAN: 89M w/ pmh HTN, HLD, COPD(home 2L O2), CAD(stent, 2017), BLE chronic venous insufficiency(on lasix) presented to [facility] from [facility] for complaint of fatigue, cough with white sputum. Admitted for COPD exacerbation, possible PNA #COPDe --possibly 2/2 viral bronchitis; less likely PNA #h/o Left-sided rib fracture(11/24/19) > Tmax 98.7F, HR 77, 98%(4L NC) > WBC 9.8(79% neutrophils) > CXR: interstitial lung disease, possible development of Right basilar infiltrates and small pleural effusion - abx regimen(empiric PNA tx): --azithro + ceftriaxone - solumedrol 60mg q8h - symbicort, spiriva, daliresp - duonebs naila, albuterol PRN - incentive spirometer - Pulm consult(Cl): --recs pending - ID consult(Kasandra) --recs pending #elevated troponin --possibly 2/2 severe chronic COPD; unlikely ACS #CAD(s/p stent 2017) > 0.08, 0.07 - cw statin, ASA #BLE venous congestion - lasix 80mg QD - ANGELINE stockings and elevate while at rest #HTN--well controlled - will resume lasix for b/l chronic venous congestion #HLD - cw atorvastatin FEN - no mIVF - low-sodium diet DVT PPX - lovenox Family Medical History Family History: Unremarkable Visit type - Emergency Visit Emergency Visit: Yes ED Registration Date: 12/20/19 Care time: The patient presented to the Emergency Department on the above date and was hospitalized for further evaluation of their emergent condition. - New Patient This patient is new to me today: Yes Date on this admission: 12/20/19 - Critical Care Critical Care patient: No ATTENDING PHYSICIAN STATEMENT I saw and evaluated the patient. I reviewed the resident's note and discussed the case with the resident. I agree with the resident's findings and plan as documented. SUBJECTIVE: OBJECTIVE: ASSESSMENT AND PLAN:
[2019-12-20] MEDS ORDERED: ALBUTEROL SO4 HFA INHALER IH PRN (21:53)
[2019-12-20] MEDS ORDERED: ALBUTEROL SO4 2.5/IPRATROPIUM 0.5 INH SOL 3 ML VIAL.NEB. NEB SCH (22:00)
[2019-12-21] MEDS: methylPREDNISolone NA SUCC 40 MG/1 ML VIAL IVPUSH SCH ×3 (02:02→17:32)
[2019-12-21] MEDS: ACETAMINOPHEN 325 MG TABLET (FP) PO PRN (02:47)
[2019-12-21 03:35] VITALS: BMI 22.4
[2019-12-21] MEDS: METHOCARBAMOL 500 MG TABLET PO SCH ×3 (05:46→22:45)
[2019-12-21 08:24] LABS: BASO % 0.1 % (0-2.0); HEMATOCRIT 36.8 % (35.4-49); HEMOGLOBIN 12.4 GM/dL (11.7-16.9); LYMPH % 7.2 % (8-40); MCH 30.7 pg (25.7-33.7); MCHC 33.7 g/dl (32.0-35.9); MEAN PLT VOLUME 7.4 fl (7.5-11.1); MONO % 2.1 % (3.8-10.2); NEUT % 90.6 % (42.8-82.8); PLATELET COUNT 245 K/MM3 (134-434); RBC 4.04 M/mm3 (4.00-5.60); RDW 16.6 % (11.9-15.9); WHITE BLOOD COUNT 4.9 K/mm3 (4.0-10.0)
[2019-12-21 08:48] LABS: MAGNESIUM 1.9 mg/dL (1.8-2.4)
--- NOTE | 2019-12-21 09:19 | EKG ---
Test Reason : Blood Pressure : / mmHG Vent. Rate : 078 BPM Atrial Rate : 078 BPM P-R Int : 162 ms QRS Dur : 084 ms QT Int : 406 ms P-R-T Axes : 033 -14 069 degrees QTc Int : 462 ms POOR DATA QUALITY, INTERPRETATION MAY BE ADVERSELY AFFECTED NORMAL SINUS RHYTHM Low voltage ABNORMAL ECG WHEN COMPARED WITH ECG OF 24-NOV-2019 22:32, No significant changes Confirmed by KIMBERLY PAZ MD ([id number]) on 12/21/2019 9:18:59 AM Referred By: Confirmed By:KIMBERLY PAZ MD
--- NOTE | 2019-12-21 09:36 | CON.PULM ---
Consult Consult Specialty:: PULMONARY Referred by:: Dr Sebastian Reason for Consultation:: COPD - History of Present Illness Chief Complaint: generalized weakness History of Present Illness: 89yo male with h/o HTN, hyperlipidemia, CAD, COPD, chronic hypoxic respiratory failure on home O2, at rehab s/p recent fall who was admitted from the half-way for generalized weakness, cough and shortness of breath. He denies fevers, chills or sweats. No chest pain or discomfort. CXR showing right basilar infiltrate/atelectasis. He was apparently started on antibiotics at the half-way but he does not recall the names. - History Source History Provided By: Patient, Medical Record Limitations to Obtaining History: No Limitations - Past Medical History Cardio/Vascular: Yes: HTN, Hyperlipdemia Pulmonary: Yes: COPD, O2 Dependent, Pneumonia Gastrointestinal: Yes: Constipation Renal/: Yes: BPH Psych: Yes: Anxiety Musculoskeletal: Yes: Osteoarthritis ENT: Yes: Sinusitis - Past Surgical History Past Surgical History: Yes: Cataract Removal (bilateral) - Alcohol/Substance Use Hx Alcohol Use: No History of Substance Use: reports: None - Smoking History Smoking history: Former smoker Have you smoked in the past 12 months: No Aproximately how many cigarettes per day: 40 If you are a former smoker, when did you quit?: 30 years ago - Social History Usual Living Arrangement: With Spouse ADL: Independent Occupation: retired History of Recent Travel: No Home Medications - Allergies Allergies/Adverse Reactions: Allergies Allergy/AdvReac Type Severity Reaction Status Date / Time shrimp Allergy Severe Swelling Verified 12/20/19 16:55 shrimp Allergy Unknown lip Uncoded 12/20/19 16:55 swelling - Home Medications Home Medications: Ambulatory Orders Acetaminophen [Tylenol Extra Strength] 1 gm PO TID PRN 12/20/19 Albuterol Sulfate [Proair Hfa] 8.5 gm IH Q4H PRN 12/20/19 Aspirin Coated [Ecotrin -] 81 mg PO DAILY 12/20/19 Atorvastatin Calcium 40 mg PO HS 12/20/19 Budesonide/Formeterol Fumarate [SYMBICORT 80/4.5mcg -] 2 inh PO BID 12/20/19 Famotidine [Pepcid] 40 mg PO DAILY 12/20/19 Furosemide [Lasix] 80 mg PO DAILY 12/20/19 Ipratropium 0.02% Nebulizer [Atrovent] 1 neb NEB TID 12/20/19 Methocarbamol [Robaxin -] 500 mg PO TID 12/20/19 Roflumilast [Daliresp] 500 mcg PO DAILY 12/20/19 Sennosides [Senna -] 1 tab PO HS 12/20/19 Sertraline HCl [Zoloft] 25 mg PO DAILY 12/20/19 Tiotropium [place] [Spiriva] 1 puff IH DAILY 12/20/19 clonazePAM [Klonopin -] 0.5 mg PO TID PRN 12/20/19 Review of Systems - Review of Systems Constitutional: reports: Weakness. denies: Chills, Fever Eyes: denies: Recent Change in Vision HENT: reports: Hearing Loss. denies: Nasal Congestion, Throat Pain Neck: denies: Stiffness, Tenderness Cardiovascular: reports: Shortness of Breath. denies: Chest Pain, Edema Respiratory: reports: Cough, SOB, Wheezing. denies: Hemoptysis Gastrointestinal: denies: Abdominal Pain, Nausea, Vomiting Genitourinary: denies: Dysuria, Hematuria Neurological: denies: Dizziness, Headache Endocrine: denies: Unexplained Weight Loss Physical Exam Vital Sings: Vital Signs Temperature 98.4 F 12/21/19 06:51 Pulse Rate 76 12/21/19 06:51 Respiratory Rate 20 12/21/19 06:51 Blood Pressure 109/60 12/21/19 06:51 O2 Sat by Pulse Oximetry (%) 96 12/21/19 03:00 Constitutional: Yes: Calm Eyes: Yes: Conjunctiva Clear, EOM Intact HENT: Yes: Atraumatic, Normocephalic Neck: Yes: Supple, Trachea Midline Cardiovascular: Yes: Regular Rate and Rhythm Respiratory: Yes: Rhonchi, Wheezes ...Clubbing: No Gastrointestinal: Yes: Normal Bowel Sounds, Soft. No: Tenderness Edema: No Neurological: Yes: Alert, Oriented Labs: CBC, BMP 12/21/19 07:00 12/20/19 17:45 Imaging - Results Chest X-ray: Report Reviewed, Image Reviewed (RLL infiltrate/atelectasis) Problem List - Problems (1) COPD exacerbation Code(s): J44.1 - CHRONIC OBSTRUCTIVE PULMONARY DISEASE W (ACUTE) EXACERBATION Assessment/Plan Acute COPD Exacerbation r/o Pneumonia Chronic Hypoxic Respiratory Failure CAD +Troponins likely Demand Ischemia HTN Hyperlipidemia - IV medrol - empiric antibiotics - f/u cultures, serologies - inhaled bronchodilators - O2 to keep SpO2 >90% - DVT prophylaxis Thank you for this consult Jacobo Ceron MD
[2019-12-21] MEDS ORDERED: cefTRIAXone SODIUM 1 GM VIAL ONE (09:37)
[2019-12-21] MEDS ORDERED: PT OWN MED DRAWER 7, Y5N ONE ×3 (09:37→11:01)
[2019-12-21] MEDS ORDERED: DEXTROSE 5%-WATER - 50 ML IVPB ONE (09:38)
[2019-12-21] MEDS: FUROSEMIDE 40 MG TABLET (FP) PO SCH (09:43)
[2019-12-21] MEDS: ASCORBIC ACID 250 MG TABLET (FP) PO SCH (09:43)
[2019-12-21] MEDS: ASPIRIN COATED 81 MG TABLET.EC PO SCH (09:43)
[2019-12-21] MEDS: ZINC SULFATE 220 MG CAPSULE (FP) PO SCH ×2 (09:44→22:45)
[2019-12-21] MEDS: SERTRALINE HCL 25 MG TABLET (FP) PO SCH (09:44)
[2019-12-21] MEDS: CEFTRIAXONE 1 GM in DEXTROSE 5%-WATER - 50 ML IVPB SCH (09:44)
[2019-12-21] MEDS: FAMOTIDINE 40 MG TABLET PO SCH (09:44)
[2019-12-21] MEDS: ENOXAPARIN NA (PORCINE) 40 MG/0.4 ML DISP.SYRIN SQ SCH (09:48)
[2019-12-21] MEDS: LIDOCAINE 5% TOPICAL PATCH TP SCH (09:53)
[2019-12-21] MEDS ORDERED: CEFAZOLIN 1 GM in DEXTROSE 5%-WATER - 50 ML IVPB SCH (10:00)
--- NOTE | 2019-12-21 10:00 | CON.ID ---
Consult Consult Specialty:: infectious diseases Referred by:: hospitalist Reason for Consultation:: pna,sob - History of Present Illness Chief Complaint: cough and sob History of Present Illness: 89yo male with h/o HTN, hyperlipidemia, CAD, COPD, chronic hypoxic respiratory failure on home O2, at rehab s/p recent fall who was admitted from the long-term for generalized weakness, cough and shortness of breath. He denies fevers, chills or sweats. No chest pain or discomfort. CXR showing right basilar infiltrate/atelectasis. He was apparently started on antibiotics at the long-term but he does not recall the names. currently patient mentions that he is coughing a lot and has whitish sputum production - History Source History Provided By: Patient Limitations to Obtaining History: No Limitations - Past Medical History Cardio/Vascular: Yes: HTN, Hyperlipdemia Pulmonary: Yes: COPD, O2 Dependent, Pneumonia Gastrointestinal: Yes: Constipation Renal/: Yes: BPH Psych: Yes: Anxiety Musculoskeletal: Yes: Osteoarthritis ENT: Yes: Sinusitis - Past Surgical History Past Surgical History: Yes: Cataract Removal (bilateral) - Alcohol/Substance Use Hx Alcohol Use: No History of Substance Use: reports: None - Smoking History Smoking history: Former smoker Have you smoked in the past 12 months: No Aproximately how many cigarettes per day: 40 If you are a former smoker, when did you quit?: 30 years ago - Social History Usual Living Arrangement: With Spouse ADL: Independent Occupation: retired History of Recent Travel: No Home Medications - Allergies Allergies/Adverse Reactions: Allergies Allergy/AdvReac Type Severity Reaction Status Date / Time shrimp Allergy Severe Swelling Verified 12/20/19 16:55 shrimp Allergy Unknown lip Uncoded 12/20/19 16:55 swelling - Home Medications Home Medications: Ambulatory Orders Acetaminophen [Tylenol Extra Strength] 1 gm PO TID PRN 12/20/19 Albuterol Sulfate [Proair Hfa] 8.5 gm IH Q4H PRN 12/20/19 Aspirin Coated [Ecotrin -] 81 mg PO DAILY 12/20/19 Atorvastatin Calcium 40 mg PO HS 12/20/19 Budesonide/Formeterol Fumarate [SYMBICORT 80/4.5mcg -] 2 inh PO BID 12/20/19 Famotidine [Pepcid] 40 mg PO DAILY 12/20/19 Furosemide [Lasix] 80 mg PO DAILY 12/20/19 Ipratropium 0.02% Nebulizer [Atrovent] 1 neb NEB TID 12/20/19 Methocarbamol [Robaxin -] 500 mg PO TID 12/20/19 Roflumilast [Daliresp] 500 mcg PO DAILY 12/20/19 Sennosides [Senna -] 1 tab PO HS 12/20/19 Sertraline HCl [Zoloft] 25 mg PO DAILY 12/20/19 Tiotropium [place] [Spiriva] 1 puff IH DAILY 12/20/19 clonazePAM [Klonopin -] 0.5 mg PO TID PRN 12/20/19 Review of Systems - Review of Systems Constitutional: reports: No Symptoms Eyes: reports: No Symptoms HENT: reports: No Symptoms Neck: reports: No Symptoms Cardiovascular: reports: No Symptoms Respiratory: reports: Cough, SOB, SOB on Exertion Gastrointestinal: reports: No Symptoms Genitourinary: reports: No Symptoms Musculoskeletal: reports: No Symptoms Integumentary: reports: No Symptoms Neurological: reports: No Symptoms Endocrine: reports: No Symptoms Hematology/Lymphatic: reports: No Symptoms Psychiatric: reports: No Symptoms Physical Exam Vital Signs: Vital Signs Temperature 98.4 F 12/21/19 06:51 Pulse Rate 76 12/21/19 06:51 Respiratory Rate 12/21/19 06:51 Blood Pressure 109/60 12/21/19 06:51 O2 Sat by Pulse Oximetry (%) 96 12/21/19 03:00 Constitutional: Yes: Calm, Thin Eyes: Yes: Conjunctiva Clear HENT: Yes: Atraumatic, Normocephalic Neck: Yes: Supple, Trachea Midline Cardiovascular: Yes: Regular Rate and Rhythm Respiratory: Yes: Diminished, Poor Air Entry (rt lowe lobes) Gastrointestinal: Yes: Normal Bowel Sounds, Soft Musculoskeletal: Yes: WNL Extremities: Yes: WNL Neurological: Yes: Alert, Oriented Psychiatric: Yes: Alert, Oriented Labs: CBC, BMP 12/21/19 07:00 12/20/19 17:45 Imaging - Results Chest X-ray: Report Reviewed, Image Reviewed Assessment/Plan this patient with multiple medical issues coming in wiht pneumonia i am worried if there is an aspiration element plan we will continue abx get a swallow study once we ahve that final decision rest as per the team resp support and await for results
[2019-12-21] MEDS: ROFLUMILAST 500 MCG TABLET PO SCH (11:29)
[2019-12-21] MEDS: AZITHROMYCIN IVPB 250 MG in DEXTROSE 5%-WATER - 250 ML IVPB SCH (11:30)
[2019-12-21] MEDS: TIOTROPIUM BROMIDE 2.5 MCG (SPIRIVA) RESPIMAT INHALER IH SCH (11:31)
[2019-12-21] MEDS: BUDESONIDE/FORMETEROL FUMARATE 80/4.5 mcg INHALER IH SCH ×2 (11:31→22:00)
[2019-12-21] MEDS: ALBUTEROL SO4 HFA INHALER IH SCH ×3 (11:46→20:00)
--- NOTE | 2019-12-21 13:51 | PN ---
Teaching Attending Note Name of Resident: Jaswinder Cardona ATTENDING PHYSICIAN STATEMENT I saw and evaluated the patient. I reviewed the resident's note and discussed the case with the resident. I agree with the resident's findings and plan as documented. SUBJECTIVE: Seen and examined at bedside. Patient with wet intermittent cough. on OBJECTIVE: Last Vital Signs Temp Pulse Resp BP Pulse Ox 98.5 F 76 20 111/56 L 95 12/21/19 07:50 12/21/19 07:50 12/21/19 07:50 12/21/19 07:50 12/21/19 09:00 PE: per resident note Labs/Imaging: reviewed ASSESSMENT AND PLAN: 89-year-old male with past medical history of hypertension, hyperlipidemia, COPD on 2 L home O2, CAD status post stents in 2017, presents with complaint of fatigue, cough, and white sputum. Patient admitted for COPD exacerbation versus aspiration. #Shortness of breath Etiology likely COPD exacerbation versus microaspiration's Continue IV steroids Continue nebulizers Azithromycin and ceftriaxone #Concern for microaspiration's Patient reports coughing with food and some difficulty swallowing Speech and swallow evaluation #Troponinemia Down trended. Likely represents type II in setting of demand #COPD Continue nebulizers and Roflumilast #CAD Continue aspirin and statin
--- NOTE | 2019-12-21 14:02 | PN ---
Physical Exam: SUBJECTIVE: Patient seen and examined at the bedside, hard of hearing, pleasant, endorses dyspnea OBJECTIVE: Vital Signs Period Temp Pulse Resp BP Sys/Donovan Pulse Ox Last 24 Hr 97.6 F-98.7 F 76-93 17-24 102-115/55-71 95-100 GENERAL: The patient is awake, alert, and fully oriented, in no acute distress. HEAD: Normal with no signs of trauma. EYES: PERRL, extraocular movements intact, sclera anicteric, conjunctiva clear. No ptosis. ENT: Ears normal, nares patent, oropharynx clear without exudates, moist mucous membranes. NECK: Trachea midline, full range of motion, supple. LUNGS: Markedly reduced air movement BL, R>L, fine crackles at bases BL HEART: Regular rate and rhythm, S1, S2 without murmur, rub or gallop. ABDOMEN: Soft, nontender, nondistended, normoactive bowel sounds, no guarding, no rebound, no hepatosplenomegaly, no masses. EXTREMITIES: 2+ pulses, 1+ pitting edema BL NEUROLOGICAL: Cranial nerves II through XII grossly intact. Normal speech, gait not observed. PSYCH: Normal mood, normal affect. SKIN: Bruise on L elbow Laboratory Results - last 24 hr 12/20/19 12/20/19 12/20/19 17:45 17:45 17:45 WBC 9.8 RBC 4.37 Hgb 13.3 Hct 39.9 MCV 91.3 MCH 30.5 MCHC 33.4 RDW 16.5 H Plt Count 264 D MPV 6.9 L Absolute Neuts (auto) 7.8 Neutrophils % 79.1 Lymphocytes % 10.4 D Monocytes % 7.6 Eosinophils % 2.3 Basophils % 0.6 Nucleated RBC % 0 PT with INR 13.60 H INR 1.15 H PTT (Actin FS) 33.4 VBG pH POC VBG pCO2 POC VBG pO2 VBG HCO3 VBG O2 Sat (Wiley) VBG Base Excess Sodium 140 Potassium 4.1 Chloride 102 Carbon Dioxide 29 Anion Gap 9 BUN 16.5 Creatinine 0.8 Est GFR (CKD-EPI)AfAm 93.09 Est GFR (CKD-EPI)NonAf 80.32 Random Glucose 90 Calcium 8.7 Phosphorus Magnesium Total Bilirubin 0.8 AST 53 H ALT 28 Alkaline Phosphatase 83 Creatine Kinase 141 Troponin I 0.08 H Total Protein 5.9 L Albumin 2.8 L Urine Color Urine Appearance Urine pH Ur Specific [place] Urine Protein Urine Glucose (UA) Urine Ketones Urine Blood Urine Nitrite Urine Bilirubin Urine Urobilinogen Ur Leukocyte Esterase Urine WBC (Auto) Urine RBC (Auto) Urine Casts (Auto) U Epithel Cells (Auto) Urine Bacteria (Auto) 12/20/19 12/20/19 12/20/19 17:45 18:00 21:18 WBC RBC Hgb Hct MCV MCH MCHC RDW Plt Count MPV Absolute Neuts (auto) Neutrophils % Lymphocytes % Monocytes % Eosinophils % Basophils % Nucleated RBC % PT with INR INR PTT (Actin FS) VBG pH 7.412 H POC VBG pCO2 49.6 POC VBG pO2 33.8 VBG HCO3 30.9 H VBG O2 Sat (Wiley) 64.8 L VBG Base Excess 5.1 H Sodium Potassium Chloride Carbon Dioxide Anion Gap BUN Creatinine Est GFR (CKD-EPI)AfAm Est GFR (CKD-EPI)NonAf Random Glucose Calcium Phosphorus Magnesium Total Bilirubin AST ALT Alkaline Phosphatase Creatine Kinase Troponin I 0.07 H Total Protein Albumin Urine Color Yellow Urine Appearance Clear Urine pH 6.0 Ur Specific [place] 1.020 Urine Protein Negative Urine Glucose (UA) Negative Urine Ketones Negative Urine Blood Trace-intact Urine Nitrite Negative Urine Bilirubin Negative Urine Urobilinogen 0.2 Ur Leukocyte Esterase Negative Urine WBC (Auto) 5.0 Urine RBC (Auto) 10.7 Urine Casts (Auto) 0.25 U Epithel Cells (Auto) 5.3 Urine Bacteria (Auto) 0.9 12/21/19 12/21/19 07:00 07:00 WBC 4.9 RBC 4.04 Hgb 12.4 Hct 36.8 MCV 91.0 MCH 30.7 MCHC 33.7 RDW 16.6 H Plt Count 245 MPV 7.4 L Absolute Neuts (auto) 4.4 Neutrophils % 90.6 H Lymphocytes % 7.2 L D Monocytes % 2.1 L Eosinophils % 0.0 D Basophils % 0.1 Nucleated RBC % 0 PT with INR INR PTT (Actin FS) VBG pH POC VBG pCO2 POC VBG pO2 VBG HCO3 VBG O2 Sat (Wiley) VBG Base Excess Sodium Potassium Chloride Carbon Dioxide Anion Gap BUN Creatinine Est GFR (CKD-EPI)AfAm Est GFR (CKD-EPI)NonAf Random Glucose Calcium Phosphorus 4.0 Magnesium 1.9 Total Bilirubin AST ALT Alkaline Phosphatase Creatine Kinase Troponin I 0.05 Total Protein Albumin Urine Color Urine Appearance Urine pH Ur Specific [place] Urine Protein Urine Glucose (UA) Urine Ketones Urine Blood Urine Nitrite Urine Bilirubin Urine Urobilinogen Ur Leukocyte Esterase Urine WBC (Auto) Urine RBC (Auto) Urine Casts (Auto) U Epithel Cells (Auto) Urine Bacteria (Auto) Active Medications Generic Name Dose Route Start Last Admin Trade Name Freq PRN Reason Stop Dose Admin Acetaminophen 650 mg 12/21/19 02:22 12/21/19 02:47 Tylenol - PO 650 mg Q6H PRN Administration PAIN LEVEL 6-10 Albuterol Sulfate 2 puff 12/21/19 12:00 12/21/19 11:46 Ventolin Hfa Inhaler - IH 2 puff RQID QUETA Administration Ascorbic Acid 250 mg 12/21/19 10:00 12/21/19 09:43 Vitamin C - PO 250 mg DAILY QUETA Administration Aspirin 81 mg 12/21/19 10:00 12/21/19 09:43 Ecotrin - PO 81 mg DAILY QUETA Administration Atorvastatin Calcium 40 mg 12/21/19 22:00 Lipitor - PO HS QUETA Budesonide/Formoterol Fumarate 2 puff 12/21/19 10:00 12/21/19 11:31 Symbicort 80/4.5mcg - IH 2 puff BID QUETA Administration Docusate Sodium 100 mg 12/20/19 21:34 Colace - PO BID PRN CONSTIPATION Enoxaparin Sodium 40 mg 12/21/19 10:00 12/21/19 09:48 Lovenox - SQ 40 mg DAILY QUETA Administration Famotidine 40 mg 12/21/19 10:00 12/21/19 09:44 Pepcid - PO 40 mg DAILY QUETA Administration Furosemide 80 mg 12/21/19 10:00 12/21/19 09:43 Lasix - PO 80 mg DAILY QUETA Administration Azithromycin 250 mg/ Dextrose 250 mls @ 250 mls/hr 12/21/19 10:00 12/21/19 11:30 IVPB 250 mls/hr DAILY QUETA Administration Ceftriaxone Sodium 1 gm/ 50 mls @ 100 mls/hr 12/21/19 10:00 12/21/19 09:44 Dextrose IVPB 100 mls/hr DAILY QUETA Administration Lidocaine 1 patch 12/21/19 10:00 12/21/19 09:53 Lidoderm Patch - TP 1 patch DAILY QUETA Administration Methocarbamol 500 mg 12/21/19 06:00 12/21/19 05:46 Robaxin - PO 500 mg TID QUETA Administration Methylprednisolone Sodium Succinate 60 mg 12/21/19 02:00 12/21/19 09:45 Solu-Medrol - IVPUSH 60 mg Q8H-IV QUETA Administration Miscellaneous 1 each 12/21/19 22:00 Lidoderm Patch Removal MC DAILY@2200 QUETA Roflumilast 500 mcg 12/21/19 10:00 12/21/19 11:29 Daliresp PO 500 mcg DAILY QUETA Administration Senna 2 tab 12/20/19 21:34 Senna - PO HS PRN CONSTIPATION Sertraline HCl 25 mg 12/21/19 10:00 12/21/19 09:44 Zoloft - PO 25 mg DAILY QUETA Administration Tiotropium [place] 2 puff 12/21/19 10:00 12/21/19 11:31 Spiriva Respimat IH 2 puff DAILY QUETA Administration Zinc Sulfate 220 mg 12/21/19 10:00 12/21/19 09:44 Orazinc - PO 220 mg BID QUETA Administration ASSESSMENT/PLAN: 89M with PMH of HTN/HLD, COPD (home 2L O2), CAD(stent, 2017), BLE chronic venous insufficiency (on Lasix) presented from [facility] with lethargy and a productive cough (whitish) for the past 3 days, admitted for COPD exacerbation vs PNA #PNA/COPD exacerbation - COPD exacerbation suspected due to increased frequency of cough, sputum, and dyspnea - PNA suspected due to patient's self reported history of coughing fits after eating certain foods, last reported a few days ago - CXR: ILD, R basilar infiltrate, chronic changes in bases - No WBC or fever, pt may be immunocompromised or infection may be mild/in its early stages - Speech and swallow consult placed - O2 demand unchanged, pt currently on 2L NC (same as baseline) - Started on Ceftriaxone/Azithro for emperic coverage as part of COPD exac. management, as well as coverage for aspiration PNA - Started on Solumedrol 60mg Q8H, as part of management for COPD exacerbation - Started on Ventolin, Duonebs, resumed home Daliresp, Spiriva, Symbicort #Hx of venous insufficiency - Continue home Lasix 80mg PO #Hx of HTN/HLD/CAD - Continue home ASA, Lipitor #FEN - Na controlled diet #Prophylaxis - Lovenox #Dispo - Monitor in M/S until improvement of symptoms Visit type - Emergency Visit Emergency Visit: No - New Patient This patient is new to me today: No - Critical Care Critical Care patient: No ATTENDING PHYSICIAN STATEMENT I saw and evaluated the patient. I reviewed the resident's note and discussed the case with the resident. I agree with the resident's findings and plan as documented. SUBJECTIVE: OBJECTIVE: ASSESSMENT AND PLAN:
[2019-12-21] MEDS: LIDOCAINE PATCH REMOVAL MC SCH (22:44)
[2019-12-21] MEDS: ATORVASTATIN CA 40 MG TABLET (FP) PO SCH (22:45)
[2019-12-21] MEDS: SENNOSIDES 8.6MG TABLET (FP) PO SCH (22:45)
[2019-12-22] MEDS: methylPREDNISolone NA SUCC 40 MG/1 ML VIAL IVPUSH SCH ×3 (01:28→17:16)
[2019-12-22] MEDS: METHOCARBAMOL 500 MG TABLET PO SCH ×3 (06:11→21:57)
[2019-12-22 07:57] LABS: BASO % 0.2 % (0-2.0); HEMATOCRIT 38.1 % (35.4-49); HEMOGLOBIN 12.7 GM/dL (11.7-16.9); LYMPH % 9.1 % (8-40); MCH 30.5 pg (25.7-33.7); MCHC 33.3 g/dl (32.0-35.9); MEAN CELL VOLUME 91.6 fl (80-96); MEAN PLT VOLUME 7.4 fl (7.5-11.1); MONO % 3.6 % (3.8-10.2); NEUT % 87.1 % (42.8-82.8); PLATELET COUNT 327 K/MM3 (134-434); RBC 4.16 M/mm3 (4.00-5.60); RDW 16.6 % (11.9-15.9); WHITE BLOOD COUNT 7.3 K/mm3 (4.0-10.0)
[2019-12-22 08:07] LABS: ALBUMIN 2.6 g/dl (3.4-5.0); BILIRUBIN,TOTAL 0.4 mg/dL (0.2-1); BLOOD UREA NITROGEN 35.6 mg/dL (7-18); CALCIUM 8.5 mg/dL (8.5-10.1); CREATININE 0.9 mg/dL (0.55-1.3); MAGNESIUM 2.1 mg/dL (1.8-2.4); PHOSPHOROUS 3.9 mg/dL (2.5-4.9); TOT PROT 5.6 g/dl (6.4-8.2)
[2019-12-22] MEDS: ALBUTEROL SO4 HFA INHALER IH SCH ×4 (08:27→21:50)
[2019-12-22] MEDS ORDERED: PT OWN MED DRAWER 7, Y5N ONE ×3 (10:11→13:49)
[2019-12-22] MEDS ORDERED: cefTRIAXone SODIUM 1 GM VIAL ONE (10:12)
[2019-12-22] MEDS ORDERED: DEXTROSE 5%-WATER - 50 ML IVPB ONE (10:12)
[2019-12-22] MEDS: FUROSEMIDE 40 MG TABLET (FP) PO SCH (10:21)
[2019-12-22] MEDS: ASPIRIN COATED 81 MG TABLET.EC PO SCH (10:21)
--- NOTE | 2019-12-22 10:21 | PN ---
Progress Note (short form) - Note Progress Note: PULMONARY States breathing is improving. Less cough and wheezing. Vital Signs Period Temp Pulse Resp BP Sys/Donovan Pulse Ox Last 24 Hr 97.5 F-98.9 F 70-80 20-22 100-120/54-60 96-96 Gen: less tachypneic Heart: RRR Lung: scattered rhonchi Abd: soft, nontender Ext: no edema CBC, BMP 12/22/19 06:15 12/22/19 06:00 Active Medications Acetaminophen (Tylenol -) 650 mg PO Q6H PRN PRN Reason: PAIN LEVEL 6-10 Last Admin: 12/21/19 02:47 Dose: 650 mg Documented by: Albuterol Sulfate (Ventolin Hfa Inhaler -) 2 puff IH RQID [facility] Last Admin: 12/22/19 08:27 Dose: 2 puff Documented by: Ascorbic Acid (Vitamin C -) 250 mg PO DAILY [facility] Last Admin: 12/21/19 09:43 Dose: 250 mg Documented by: Aspirin (Ecotrin -) 81 mg PO DAILY [facility] Last Admin: 12/21/19 09:43 Dose: 81 mg Documented by: Atorvastatin Calcium (Lipitor -) 40 mg PO HS [facility] Last Admin: 12/21/19 22:45 Dose: 40 mg Documented by: Budesonide/Formoterol Fumarate (Symbicort 80/4.5mcg -) 2 puff IH BID [facility] Last Admin: 12/21/19 22:00 Dose: 2 puff Documented by: Docusate Sodium (Colace -) 100 mg PO BID PRN PRN Reason: CONSTIPATION Enoxaparin Sodium (Lovenox -) 40 mg SQ DAILY [facility] Last Admin: 12/21/19 09:48 Dose: 40 mg Documented by: Famotidine (Pepcid -) 40 mg PO DAILY [facility] Last Admin: 12/21/19 09:44 Dose: 40 mg Documented by: Furosemide (Lasix -) 80 mg PO DAILY [facility] Last Admin: 12/21/19 09:43 Dose: 80 mg Documented by: Azithromycin 250 mg/ Dextrose 250 mls @ 250 mls/hr IVPB DAILY [facility] Last Admin: 12/21/19 11:30 Dose: 250 mls/hr Documented by: Cefepime HCl (Maxipime 2gm Ivpb (Premix)) 2 gm in 50 mls @ 100 mls/hr IVPB Q8H- IV [facility]; Protocol Lidocaine (Lidoderm Patch -) 1 patch TP DAILY [facility] Last Admin: 12/21/19 09:53 Dose: 1 patch Documented by: Methocarbamol (Robaxin -) 500 mg PO TID [facility] Last Admin: 12/22/19 06:11 Dose: 500 mg Documented by: Methylprednisolone Sodium Succinate (Solu-Medrol -) 60 mg IVPUSH Q8H-IV [facility] Last Admin: 12/22/19 01:28 Dose: 60 mg Documented by: Miscellaneous (Lidoderm Patch Removal) 1 each MC DAILY@2200 [facility] Last Admin: 12/21/19 22:44 Dose: 1 each Documented by: Roflumilast (Daliresp) 500 mcg PO DAILY [facility] Last Admin: 12/21/19 11:29 Dose: 500 mcg Documented by: Senna (Senna -) 2 tab PO HS PRN PRN Reason: CONSTIPATION Senna (Senna -) 1 tab PO HS [facility] Last Admin: 12/21/19 22:45 Dose: 1 tab Documented by: Sertraline HCl (Zoloft -) 25 mg PO DAILY [facility] Last Admin: 12/21/19 09:44 Dose: 25 mg Documented by: Tiotropium [place] (Spiriva Respimat) 2 puff IH DAILY [facility] Last Admin: 12/21/19 11:31 Dose: 2 puff Documented by: Zinc Sulfate (Orazinc -) 220 mg PO BID [facility] Last Admin: 12/21/19 22:45 Dose: 220 mg Documented by: A/P Acute COPD Exacerbation Suspect Pneumonia Chronic Hypoxic Respiratory Failure CAD +Troponins likely Demand Ischemia HTN Hyperlipidemia - continue medrol - empiric antibiotics - f/u cultures, serologies - inhaled bronchodilators - O2 to keep SpO2 >90% - DVT prophylaxis Problem List - Problems (1) COPD exacerbation Code(s): J44.1 - CHRONIC OBSTRUCTIVE PULMONARY DISEASE W (ACUTE) EXACERBATION
[2019-12-22] MEDS: FAMOTIDINE 40 MG TABLET PO SCH (10:22)
[2019-12-22] MEDS: ROFLUMILAST 500 MCG TABLET PO SCH (10:22)
[2019-12-22] MEDS: ZINC SULFATE 220 MG CAPSULE (FP) PO SCH ×2 (10:22→21:57)
[2019-12-22] MEDS: ASCORBIC ACID 250 MG TABLET (FP) PO SCH (10:22)
[2019-12-22] MEDS: TIOTROPIUM BROMIDE 2.5 MCG (SPIRIVA) RESPIMAT INHALER IH SCH (10:23)
[2019-12-22] MEDS: AZITHROMYCIN IVPB 250 MG in DEXTROSE 5%-WATER - 250 ML IVPB SCH (10:23)
[2019-12-22] MEDS: BUDESONIDE/FORMETEROL FUMARATE 80/4.5 mcg INHALER IH SCH ×2 (10:23→21:57)
[2019-12-22] MEDS: ENOXAPARIN NA (PORCINE) 40 MG/0.4 ML DISP.SYRIN SQ SCH (10:25)
[2019-12-22] MEDS: LIDOCAINE 5% TOPICAL PATCH TP SCH (10:26)
[2019-12-22] MEDS: SERTRALINE HCL 25 MG TABLET (FP) PO SCH (10:27)
--- NOTE | 2019-12-22 10:43 | CONSULT ---
Admitting History and Physical - Primary Care Physician PCP: Yaw Caba - Admission History of Present Illness: Per EMR- 89M w/ pmh HTN, HLD, COPD(home 2L O2), CAD(stent, 2017), BLE chronic venous insufficiency(on lasix) presented to [facility] from [facility] for complaint o f fatigue, cough with white sputum, shortness of breath,. PMD imp-Etiology likely COPD exacerbation versus concern for microaspiration as reports coughing with food and some difficulty swallowing Pulmonary imp- Acute COPD Exacerbation, r/o Pneumonia CXR: interstitial lung disease, possible development of Right basilar infiltrates and small pleural effusion Selected Entries 12/21/19 12/21/19 12/21/19 03:21 06:51 07:50 Breakfast Chief Complaint cough, fatigue Diet Tolerated Lunch Supper Temperature 97.6 F 98.4 F 98.5 F Pulse Rate 90 76 76 Blood Pressure 115/71 109/60 111/56 L 12/21/19 12/21/19 12/21/19 14:00 15:30 17:23 Breakfast 25% Chief Complaint Diet Tolerated Poor Lunch 25% Supper Temperature 97.8 F 98.1 F Pulse Rate 76 80 Blood Pressure 100/54 L 117/58 L 12/21/19 12/22/19 12/22/19 23:15 01:00 06:46 Breakfast Chief Complaint Diet Tolerated Well Lunch Supper 50% Temperature 98.9 F 97.5 F L Pulse Rate 75 70 Blood Pressure 120/58 L 112/60 Laboratory Tests 12/20/19 12/20/19 12/21/19 17:10 17:45 07:00 WBC 9.8 4.9 COVID-19 ([facility]) Pending 12/22/19 06:15 WBC 7.3 COVID-19 ([facility]) This is my first consult with this pt. History Source: Patient Limitations to Obtaining History: No Limitations - Past Medical History Cardiovascular: Yes: HTN, Hyperlipdemia Pulmonary: Yes: COPD, O2 Dependent, Pneumonia Gastrointestinal: Yes: Constipation Renal/: Yes: BPH Psych: Yes: Anxiety Musculoskeletal: Yes: Osteoarthritis ENT: Yes: Sinusitis - Past Surgical History Past Surgical History: Yes: Cataract Removal (bilateral) - Smoking History Smoking history: Former smoker Have you smoked in the past 12 months: No Aproximately how many cigarettes per day: 40 If you are a former smoker, when did you quit?: 30 years ago - Alcohol/Substance Use Hx Alcohol Use: No History of Substance Use: reports: None - Social History ADL: Independent Occupation: retired History of Recent Travel: No History - Admission Reason For Visit: PNEUMONIA,CHRONIC OBSTRUCTIVE PULMONARY DISEASE - Diagnostics X-ray: Report Reviewed (> CXR: interstitial lung disease, possible development of Right basilar infiltrates and small pleural effusion) - General Mental Status: Alert and Oriented, Awake and Alert, Able to Follow Commands Attention: Intact Ability to Follow Directions: Excellent Head/Neck Control: WFL - Hearing Hearing: Functional Hearing: Impaired, Both Hearing Aide: Yes With Patient: No Speech Evaluation - Communication Primary Language: [place] Communication: Yes: Within Normal Limits Oral Expression Ability: Yes: No Impairment - Speech Production Able to Make Needs Known: Yes: WNL Intelligibility: Yes: WNL - Speech Characteristics Voice Loudness: Normal Voice Pitch: Yes: Normal Voice Phonatory-based Quality: Yes: Normal Speech Pattern: Normal Speech Clarity: < 100% Nasal Resonance: Normal Articulation: Yes: Precise Rate of Speech: Intact - Language/Auditory Comprehension Follows: Yes: 2 Stage Simple Commands - Language/Verbal Expression Able to Respond to Simple Queries: Yes: WNL Able to Communicate Wants and Needs: Yes: WNL Functional Communication Status: Yes: WNL - Memory/Perception long-term Memory: Yes: WNL Short Term Memory: Yes: WNL - Swallow Evaluation/Bedside Assessment Current Nutritional Intake: Regular, Thin Liquids Oral Secretions: Yes: WFL, R/O Candidiasis (Trial mouth care to clean patches on tongue, r/o thrush), Tongue Coated Dentition: Yes: Adequate Facial Symmetry on Retraction: Symmetrical Facial Movement: Controlled Against Resistance Opening: Normal Against Resistance Closing: Normal Pucker Lips: Normal Smile: Normal Lingual Movement: Normal, Symmetric Lingual Speed of Movement: Normal Lingual Movement Strgth Against Opposition: Normal Lingual Movement Characteristics: Normal Velopharyngeal Movement: Normal Laryngeal Elevation: WFL Laryngeal Movement: Able to Palpate Rate of Intake: WFL Bolus Size: WFL Labial Seal: WFL Chewing: WFL Oral Prep Time: WFL A-P Transit: WFL Timing of Swallow: WFL Coughing/Throat Clear: Yes (intermittently on dry solids and liquids) Recommendations - Speech Evaluation, Impression/Plan Impression: Trial mouth care to clean patches on tongue, r/o thrush. Pt reports responsive intermittently on dry solids and liquids, sticking in throat and chest. Recurrent PNA - Dysphagia Impressions/Plan Dysphagia Impressions: Risk of Aspiration, Ongoing Evaluation *Silent aspiration: cannot be R/O at bedside Recommendations: JORDANA Cunningham
[2019-12-22] MEDS ORDERED: CEFEPIME 2 GM in DEXTROSE 5%-WATER 100 ML IVPB SCH ×2 (11:00→22:00)
--- NOTE | 2019-12-22 11:36 | PN ---
Physical Exam: SUBJECTIVE: Patient seen and examined. No acute events noted overnight. OBJECTIVE: Vital Signs Period Temp Pulse Resp BP Sys/Donovan Pulse Ox Last 24 Hr 97.5 F-98.9 F 70-80 20-22 100-120/54-60 96-96 GENERAL: The patient is awake, alert, and fully oriented, in no acute distress. LUNGS: Markedly reduced air movement BL, R>L, fine crackles at bases BL HEART: Regular rate and rhythm, S1, S2 without murmur, rub or gallop. ABDOMEN: Soft, nontender, nondistended. EXTREMITIES: no edema, warm well perfused. NEUROLOGICAL: Normal speech, gait not observed. PSYCH: Normal mood, normal affect. SKIN: Bruise on L elbow Laboratory Results - last 24 hr 12/22/19 12/22/19 06:00 06:15 WBC 7.3 RBC 4.16 Hgb 12.7 Hct 38.1 MCV 91.6 MCH 30.5 MCHC 33.3 RDW 16.6 H Plt Count 327 D MPV 7.4 L Absolute Neuts (auto) 6.4 Neutrophils % 87.1 H Lymphocytes % 9.1 D Monocytes % 3.6 L Eosinophils % 0.0 Basophils % 0.2 Nucleated RBC % 0 Sodium 138 Potassium 4.0 Chloride 101 Carbon Dioxide 28 Anion Gap 9 BUN 35.6 H Creatinine 0.9 Est GFR (CKD-EPI)AfAm 88.69 Est GFR (CKD-EPI)NonAf 76.52 Random Glucose 129 H Calcium 8.5 Phosphorus 3.9 Magnesium 2.1 Total Bilirubin 0.4 AST 28 ALT 23 Alkaline Phosphatase 73 Total Protein 5.6 L Albumin 2.6 L Active Medications Generic Name Dose Route Start Last Admin Trade Name Freq PRN Reason Stop Dose Admin Acetaminophen 650 mg 12/21/19 02:22 12/21/19 02:47 Tylenol - PO 650 mg Q6H PRN Administration PAIN LEVEL 6-10 Albuterol Sulfate 2 puff 12/21/19 12:00 12/22/19 08:27 Ventolin Hfa Inhaler - IH 2 puff RQID [facility]ETA Administration Ascorbic Acid 250 mg 12/21/19 10:00 12/22/19 10:22 Vitamin C - PO 250 mg DAILY QU[facility]A Administration Aspirin 81 mg 12/21/19 10:00 12/22/19 10:21 Ecotrin - PO 81 mg DAILY QU[facility]A Administration Atorvastatin Calcium 40 mg 12/21/19 22:00 12/21/19 22:45 Lipitor - PO 40 mg HS QUETA Administration Budesonide/Formoterol Fumarate 2 puff 12/21/19 10:00 12/22/19 10:23 Symbicort 80/4.5mcg - IH 2 puff BID QUETA Administration Docusate Sodium 100 mg 12/20/19 21:34 Colace - PO BID PRN CONSTIPATION Enoxaparin Sodium 40 mg 12/21/19 10:00 12/22/19 10:25 Lovenox - SQ 40 mg DAILY [facility]A Administration Famotidine 40 mg 12/21/19 10:00 12/22/19 10:22 Pepcid - PO 40 mg DAILY [facility] Administration Furosemide 80 mg 12/21/19 10:00 12/22/19 10:21 Lasix - PO 80 mg DAILY [facility] Administration Azithromycin 250 mg/ Dextrose 250 mls @ 250 mls/hr 12/21/19 10:00 12/22/19 10:23 IVPB 250 mls/hr DAILY [facility] Administration Cefepime HCl 2 gm/ Dextrose 100 mls @ 100 mls/hr 12/22/19 22:00 IVPB BID [facility]A Protocol Cefepime HCl 2 gm/ Dextrose 100 mls @ 200 mls/hr 12/22/19 11:00 IVPB 12/23/19 10:29 BID [facility] Lidocaine 1 patch 12/21/19 10:00 12/22/19 10:26 Lidoderm Patch - TP 1 patch DAILY [facility] Administration Methocarbamol 500 mg 12/21/19 06:00 12/22/19 06:11 Robaxin - PO 500 mg TID [facility] Administration Methylprednisolone Sodium Succinate 40 mg 12/22/19 10:25 Solu-Medrol - IVPUSH Q8H-IV [facility] Miscellaneous 1 each 12/21/19 22:00 12/21/19 22:44 Lidoderm Patch Removal MC 1 each DAILY@2200 [facility] Administration Roflumilast 500 mcg 12/21/19 10:00 12/22/19 10:22 Daliresp PO 500 mcg DAILY [facility] Administration Senna 2 tab 12/20/19 21:34 Senna - PO HS PRN CONSTIPATION Senna 1 tab 12/21/19 22:00 12/21/19 22:45 Senna - PO 1 tab HS [facility] Administration Sertraline HCl 25 mg 12/21/19 10:00 12/22/19 10:27 Zoloft - PO 25 mg DAILY [facility] Administration Tiotropium [place] 2 puff 12/21/19 10:00 12/22/19 10:23 Spiriva Respimat IH 2 puff DAILY [facility] Administration Zinc Sulfate 220 mg 12/21/19 10:00 12/22/19 10:22 Orazinc - PO 220 mg BID [facility] Administration ASSESSMENT/PLAN: 89M with PMH of HTN/HLD, COPD (home 2L O2), CAD(stent, 2017), BLE chronic venous insufficiency (on Lasix) presented from [facility] with lethargy and a productive cough (whitish) for the past 3 days, admitted for COPD exacerbation vs PNA #Acute hypoxic respiratory failure - 2/2 HCAP/COPD exacerbation - COPD exacerbation suspected due to increased frequency of cough, sputum, and dyspnea - PNA suspected due to patient's self reported history of coughing and CXR findings - CXR: ILD, R basilar infiltrate, chronic changes in bases - No WBC or fever, pt may be immunocompromised not mounting response - Speech and swallow consult placed for ? aspiration will await recs. - O2 demand unchanged, pt currently on 2L NC (same as baseline) - discontinued Ceftriaxone as not Rx CAP treating HCAP as pt from [facility], switched to cefepime and continue z pac for anti-inflammatory properties for the copd exacerbation. Not - Decreased Solumedrol to 40mg Q8H, as part of management for COPD exacerbation - c/w Ventolin, Duonebs, resumed home Daliresp, Spiriva, Symbicort #Hx of venous insufficiency - Continue home Lasix 80mg PO - no acute worsening of insufficiency #Hx of HTN/HLD/CAD - Continue home ASA, Lipitor #FEN - Na controlled diet #Prophylaxis - Lovenox 40 daily #Dispo - Monitor in M/S until improvement of symptoms Visit type - Emergency Visit Emergency Visit: Yes ED Registration Date: 12/20/19 Care time: The patient presented to the Emergency Department on the above date and was hospitalized for further evaluation of their emergent condition. - New Patient This patient is new to me today: Yes Date on this admission: 12/22/19 - Critical Care Critical Care patient: No - Discharge Referral Referred to [facility] No ATTENDING PHYSICIAN STATEMENT I saw and evaluated the patient. I reviewed the resident's note and discussed the case with the resident. I agree with the resident's findings and plan as documented. SUBJECTIVE: OBJECTIVE: ASSESSMENT AND PLAN:
--- NOTE | 2019-12-22 12:58 | PN ---
Progress Note, Physician History of Present Illness: stable no complaints sitting on chair on nasal canula - Current Medication List Current Medications: Active Medications Acetaminophen (Tylenol -) 650 mg PO Q6H PRN PRN Reason: PAIN LEVEL 6-10 Last Admin: 12/21/19 02:47 Dose: 650 mg Documented by: Albuterol Sulfate (Ventolin Hfa Inhaler -) 2 puff IH RQID [facility] Last Admin: 12/22/19 11:46 Dose: 2 puff Documented by: Ascorbic Acid (Vitamin C -) 250 mg PO DAILY [facility] Last Admin: 12/22/19 10:22 Dose: 250 mg Documented by: Aspirin (Ecotrin -) 81 mg PO DAILY [facility] Last Admin: 12/22/19 10:21 Dose: 81 mg Documented by: Atorvastatin Calcium (Lipitor -) 40 mg PO HS [facility] Last Admin: 12/21/19 22:45 Dose: 40 mg Documented by: Budesonide/Formoterol Fumarate (Symbicort 80/4.5mcg -) 2 puff IH BID [facility] Last Admin: 12/22/19 10:23 Dose: 2 puff Documented by: Docusate Sodium (Colace -) 100 mg PO BID PRN PRN Reason: CONSTIPATION Enoxaparin Sodium (Lovenox -) 40 mg SQ DAILY [facility] Last Admin: 12/22/19 10:25 Dose: 40 mg Documented by: Famotidine (Pepcid -) 40 mg PO DAILY [facility] Last Admin: 12/22/19 10:22 Dose: 40 mg Documented by: Furosemide (Lasix -) 80 mg PO DAILY [facility] Last Admin: 12/22/19 10:21 Dose: 80 mg Documented by: Azithromycin 250 mg/ Dextrose 250 mls @ 250 mls/hr IVPB DAILY [facility] Last Admin: 12/22/19 10:23 Dose: 250 mls/hr Documented by: Cefepime HCl 2 gm/ Dextrose 100 mls @ 100 mls/hr IVPB BID [facility]; Protocol Piperacillin Sod/Tazobactam (Sod 4.5 gm/ Dextrose) 100 mls @ 200 mls/hr IVPB Q6H-IV [facility]; Protocol Piperacillin Sod/Tazobactam (Sod 4.5 gm/ Dextrose) 100 mls @ 200 mls/hr IVPB Q6H-IV [facility] Stop: 12/23/19 09:29 Lidocaine (Lidoderm Patch -) 1 patch TP DAILY [facility] Last Admin: 12/22/19 10:26 Dose: 1 patch Documented by: Methocarbamol (Robaxin -) 500 mg PO TID [facility] Last Admin: 12/22/19 06:11 Dose: 500 mg Documented by: Methylprednisolone Sodium Succinate (Solu-Medrol -) 40 mg IVPUSH Q8H-IV [facility] Miscellaneous (Lidoderm Patch Removal) 1 each MC DAILY@2200 [facility] Last Admin: 12/21/19 22:44 Dose: 1 each Documented by: Roflumilast (Daliresp) 500 mcg PO DAILY [facility] Last Admin: 12/22/19 10:22 Dose: 500 mcg Documented by: Senna (Senna -) 2 tab PO HS PRN PRN Reason: CONSTIPATION Senna (Senna -) 1 tab PO HS [facility] Last Admin: 12/21/19 22:45 Dose: 1 tab Documented by: Sertraline HCl (Zoloft -) 25 mg PO DAILY [facility] Last Admin: 12/22/19 10:27 Dose: 25 mg Documented by: Tiotropium [facility] [place] (Spiriva Respimat) 2 puff IH DAILY [facility] Last Admin: 12/22/19 10:23 Dose: 2 puff Documented by: Zinc Sulfate (Orazinc -) 220 mg PO BID [facility] Last Admin: 12/22/19 10:22 Dose: 220 mg Documented by: - Objective Vital Signs: Vital Signs Temperature 98.2 F 12/22/19 08:25 Pulse Rate 72 12/22/19 08:25 Respiratory Rate 20 12/22/19 08:25 Blood Pressure 106/49 L 12/22/19 08:25 O2 Sat by Pulse Oximetry (%) 95 12/22/19 09:00 Constitutional: Yes: No Distress, Calm Cardiovascular: Yes: S1, S2 Respiratory: Yes: On Nasal O2, Poor Air Entry, Other (crackles) Gastrointestinal: Yes: Normal Bowel Sounds, Soft Musculoskeletal: Yes: WNL Extremities: Yes: WNL Neurological: Yes: Alert, Oriented Psychiatric: Yes: Alert, Oriented Labs: CBC, BMP 12/22/19 06:15 12/22/19 06:00 INR, PTT INR 1.15 (0.83-1.09) H 12/20/19 17:45 Assessment/Plan plan continue abx resp support rest as per the team
[2019-12-22] MEDS ORDERED: DEXTROSE 5%-WATER 100 ML IVPB ONE ×2 (14:56→21:30)
[2019-12-22] MEDS ORDERED: PIPERACILLIN/TAZOBACTAM 4.5 GM VIAL IVPB ONE ×2 (14:56→21:30)
[2019-12-22] MEDS: PIPERACILLIN/TAZOB 4.5 GM 4.5 GM in DEXTROSE 5%-WATER 100 ML IVPB SCH ×2 (15:05→21:51)
--- NOTE | 2019-12-22 15:34 | CON.CARD ---
Cardiology Consult (text) - Consultation Consultation Note: Consult Specialty:: cardio - History of Present Illness Chief Complaint: shortness of breath History of Present Illness: 89M with HTN, HLD, COPD, venous insufficiency here with shortness of breath, cough, weakness. No chest pain, palps, dizziness. Has dyspnea on exertion. recently admitted for fall, rib fracture. Treating here for COPD exac PMH: CAD HTN HPL anxiety COPD (on home o2) - Past Medical History Cardio/Vascular: Yes: HTN, Hyperlipdemia. No: AFIB Pulmonary: Yes: COPD, O2 Dependent, Pneumonia. No: Previously Intubated Gastrointestinal: Yes: Constipation Renal/: Yes: BPH Psych: Yes: Anxiety Musculoskeletal: Yes: Osteoarthritis ENT: Yes: Sinusitis - Past Surgical History Past Surgical History: Yes: Cataract Removal (bilateral) - Alcohol/Substance Use Hx Alcohol Use: No History of Substance Use: reports: None - Smoking History Smoking history: Former smoker Have you smoked in the past 12 months: No Aproximately how many cigarettes per day: 0 If you are a former smoker, when did you quit?: 40 years ago - Social History Usual Living Arrangement: With Spouse ADL: Independent Occupation: retired History of Recent Travel: No - Allergies Allergies/Adverse Reactions: Allergies Allergy/AdvReac Type Severity Reaction Status Date / Time shrimp Allergy Severe Swelling Verified 12/20/19 16:55 shrimp Allergy Unknown lip Uncoded 12/20/19 16:55 swelling Home Medications Medication Instructions Recorded Acetaminophen [Tylenol Extra 1 gm PO TID PRN 12/20/19 Strength] Albuterol Sulfate [Proair Hfa] 8.5 gm IH Q4H PRN 12/20/19 Aspirin Coated [Ecotrin -] 81 mg PO DAILY 12/20/19 Atorvastatin Calcium 40 mg PO HS 12/20/19 Budesonide/Formeterol Fumarate 2 inh PO BID 12/20/19 [SYMBICORT 80/4.5mcg -] Famotidine [Pepcid] 40 mg PO DAILY 12/20/19 Furosemide [Lasix] 80 mg PO DAILY 12/20/19 Ipratropium 0.02% Nebulizer 1 neb NEB TID 12/20/19 [Atrovent] Methocarbamol [Robaxin -] 500 mg PO TID 12/20/19 Roflumilast [Daliresp] 500 mcg PO DAILY 12/20/19 Sennosides [Senna -] 1 tab PO HS 12/20/19 Sertraline HCl [Zoloft] 25 mg PO DAILY 12/20/19 Tiotropium [place] [Spiriva] 1 puff IH DAILY 12/20/19 clonazePAM [Klonopin -] 0.5 mg PO TID PRN 12/20/19 Family Medical History Family History: Denies (no known cmp) Review of Systems - Review of Systems Constitutional: denies: Chills, Fever Eyes: denies: Eye Pain HENT: denies: Nasal Congestion Neck: denies: Stiffness Cardiovascular: denies: Palpitations Respiratory: denies: Orthopnea, PND Gastrointestinal: denies: Diarrhea, Rectal Bleeding Genitourinary: denies: Burning, Hematuria Musculoskeletal: denies: Muscle Pain Integumentary: denies: Rash Neurological: denies: Numbness, Seizure, Syncope Endocrine: denies: Excessive Sweating Hematology/Lymphatic: denies: Excessive Bleeding Vital Signs Period Temp Pulse Resp BP Sys/Donovan Pulse Ox Last 24 Hr 97.5 F-98.9 F 70-80 20-22 106-120/49-60 95-96 Constitutional: Yes: Well Nourished, No Distress Eyes: No: Sclera Icterus HENT: No: Nasal Congestion Neck: No: Decreased ROM Respiratory: Yes: CTA Bilaterally (faint sounds diffusely), Wheezes (faint). No: Accessory Muscle Use, Rales Gastrointestinal: Yes: Normal Bowel Sounds. No: Distention, Hepatomegaly, Palpable Mass, Tenderness Cardiovascular: Yes: Regular Rate and Rhythm JVD: No Carotid Bruit: No PMI: Non-Displaced Heart Sounds: Yes: S1, S2. No: Gallop Murmur: No: Systolic Murmur, Diastolic Murmur Musculoskeletal: Yes: Other (No kyphosis) Extremities: No: Cool, Cyanosis Edema: no Integumentary: No: Jaundice Neurological: Yes: Alert, Oriented (x3) Psychiatric: No: Agitated Laboratory Last Values WBC 7.3 K/mm3 (4.0-10.0) 12/22/19 06:15 RBC 4.16 M/mm3 (4.00-5.60) 12/22/19 06:15 Hgb 12.7 GM/dL (11.7-16.9) 12/22/19 06:15 Hct 38.1 % (35.4-49) 12/22/19 06:15 MCV 91.6 fl (80-96) 12/22/19 06:15 MCH 30.5 pg (25.7-33.7) 12/22/19 06:15 MCHC 33.3 g/dl (32.0-35.9) 12/22/19 06:15 RDW 16.6 % (11.9-15.9) H 12/22/19 06:15 Plt Count 327 K/MM3 (134-434) D 12/22/19 06:15 MPV 7.4 fl (7.5-11.1) L 12/22/19 06:15 Absolute Neuts (auto) 6.4 K/mm3 (1.5-8.0) 12/22/19 06:15 Neutrophils % 87.1 % (42.8-82.8) H 12/22/19 06:15 Lymphocytes % 9.1 % (8-40) D 12/22/19 06:15 Monocytes % 3.6 % (3.8-10.2) L 12/22/19 06:15 Eosinophils % 0.0 % (0-4.5) 12/22/19 06:15 Basophils % 0.2 % (0-2.0) 12/22/19 06:15 Nucleated RBC % 0 % (0-0) 12/22/19 06:15 PT with INR 13.60 SEC (9.7-13.0) H 12/20/19 17:45 INR 1.15 (0.83-1.09) H 12/20/19 17:45 PTT (Actin FS) 33.4 SECONDS (25.2-36.5) 12/20/19 17:45 VBG pH 7.412 (7.310-7.410) H 12/20/19 17:45 POC VBG pCO2 49.6 mmHg (38-52) 12/20/19 17:45 POC VBG pO2 33.8 mmHg (28-48) 12/20/19 17:45 VBG HCO3 30.9 mmol/L (23-29) H 12/20/19 17:45 VBG O2 Sat ([place]iley) 64.8 % (70-80) L 12/20/19 17:45 VBG Base Excess 5.1 mmol/L (-2-2) H 12/20/19 17:45 Sodium 138 mmol/L (136-145) 12/22/19 06:00 Potassium 4.0 mmol/L (3.5-5.1) 12/22/19 06:00 Chloride 101 mmol/L (98-107) 12/22/19 06:00 Carbon Dioxide 28 mmol/L (21-32) 12/22/19 06:00 Anion Gap 9 MMOL/L (8-16) 12/22/19 06:00 BUN 35.6 mg/dL (7-18) H 12/22/19 06:00 Creatinine 0.9 mg/dL (0.55-1.3) 12/22/19 06:00 Est GFR (CKD-EPI)AfAm 88.69 12/22/19 06:00 Est GFR (CKD-EPI)NonAf 76.52 12/22/19 06:00 Random Glucose 129 mg/dL (74-106) H 12/22/19 06:00 Calcium 8.5 mg/dL (8.5-10.1) 12/22/19 06:00 Phosphorus 3.9 mg/dL (2.5-4.9) 12/22/19 06:00 Magnesium 2.1 mg/dL (1.8-2.4) 12/22/19 06:00 Total Bilirubin 0.4 mg/dL (0.2-1) 12/22/19 06:00 AST 28 U/L (15-37) 12/22/19 06:00 ALT 23 U/L (13-61) 12/22/19 06:00 Alkaline Phosphatase 73 U/L (45-117) 12/22/19 06:00 Creatine Kinase 141 U/L (26-308) 12/20/19 17:45 Troponin I 0.05 ng/ml (0.00-0.05) 12/21/19 07:00 Total Protein 5.6 g/dl (6.4-8.2) L 12/22/19 06:00 Albumin 2.6 g/dl (3.4-5.0) L 12/22/19 06:00 Urine Color Yellow 12/20/19 18:00 Urine Appearance Clear 12/20/19 18:00 Urine pH 6.0 (5.0-8.0) 12/20/19 18:00 Ur Specific [place] 1.020 (1.010-1.035) 12/20/19 18:00 Urine Protein Negative (NEGATIVE) 12/20/19 18:00 Urine Glucose (UA) Negative (NEGATIVE) 12/20/19 18:00 Urine Ketones Negative (NEGATIVE) 12/20/19 18:00 Urine Blood Trace-intact (NEGATIVE) 12/20/19 18:00 Urine Nitrite Negative (NEGATIVE) 12/20/19 18:00 Urine Bilirubin Negative (NEGATIVE) 12/20/19 18:00 Urine Urobilinogen 0.2 mg/dL (0.2-1.0) 12/20/19 18:00 Ur Leukocyte Esterase Negative (NEGATIVE) 12/20/19 18:00 Urine WBC (Auto) 5.0 /uL (0-25.8) 12/20/19 18:00 Urine RBC (Auto) 10.7 /uL (0-23.9) 12/20/19 18:00 Urine Casts (Auto) 0.25 /uL (0-3.1) 12/20/19 18:00 U Epithel Cells (Auto) 5.3 /uL (0-25.1) 12/20/19 18:00 Urine Bacteria (Auto) 0.9 /uL (0-1359) 12/20/19 18:00 Assessment/Plan Echo 05/12: nl LV/RV. nl valve fxn, no RVSP Stress Echo with definity contrast 06/2017: 1.20 min on rodney protocol. MPHR 115%. Non ischemic ekg changes. tds echo images. no inducible ischemia (lack of LV augmentation noted). pear rvsp at least 69. [facility] 05/2017: subtotal OM1--Xience. remainder unchanged: 30-50% dRCA, mild pLCX, 50-60% LPL1. EDP 10, nl EF CXR: no acute process ECG: sinus, nl intervals, no ischemic changes echo 07/2019 tds, RWMA cannot be excluded, nl LV function, impaired relaxation, nl RV, mild to mod MAC, mild TR, mild to mod aortic sclerosis shortness of breath, COPD exac - COVID serology pending - manage per primary, pulm CAD s/p NSTEMI, PCI 2016, elevated trop -trop indeterminate range, flat trend, not c/w ACS -ecg non-ischemic -cont home aspirin, statin COPD - manage per pulm edema, venous insufficiency - stable, cont PO lasix HTN: -cont home meds HLD - cont statin
[2019-12-22] MEDS: CEFTRIAXONE 1 GM in DEXTROSE 5%-WATER - 50 ML IVPB SCH (16:34)
--- NOTE | 2019-12-22 17:25 | PN ---
Teaching Attending Note Name of Resident: Norberto Brown ATTENDING PHYSICIAN STATEMENT I saw and evaluated the patient. I reviewed the resident's note and discussed the case with the resident. I agree with the resident's findings and plan as documented. SUBJECTIVE: Cough improving. No fever/chills. OBJECTIVE: Afebrile, Hemodynamically stable. Last Vital Signs Temp Pulse Resp BP Pulse Ox 97.9 F 74 20 100/55 L 95% on 2L 12/22/19 15:32 12/22/19 15:32 12/22/19 15:32 12/22/19 15:32 12/22/19 09:00 HEENT - Atraumatic, Normocephalic. Heart - S, S2, RRR lungs - R sided crackles + wheeze. Abdomen - Soft, non-tender. Bowel Sounds normal. Extremities - no edema, no calf tenderness. Chronic skin changes/hemosiderin deposits. Laboratory Results - last 24 hr 12/20/19 12/22/19 12/22/19 17:10 06:00 06:15 WBC 7.3 RBC 4.16 Hgb 12.7 Hct 38.1 MCV 91.6 MCH 30.5 MCHC 33.3 RDW 16.6 H Plt Count 327 D MPV 7.4 L Absolute Neuts (auto) 6.4 Neutrophils % 87.1 H Lymphocytes % 9.1 D Monocytes % 3.6 L Eosinophils % 0.0 Basophils % 0.2 Nucleated RBC % 0 Sodium 138 Potassium 4.0 Chloride 101 Carbon Dioxide 28 Anion Gap 9 BUN 35.6 H Creatinine 0.9 Est GFR (CKD-EPI)AfAm 88.69 Est GFR (CKD-EPI)NonAf 76.52 Random Glucose 129 H Calcium 8.5 Phosphorus 3.9 Magnesium 2.1 Total Bilirubin 0.4 AST 28 ALT 23 Alkaline Phosphatase 73 Total Protein 5.6 L Albumin 2.6 L COVID-19 ([place]) Not detected Current Medications Generic Name Dose Route Start Last Admin Trade Name Freq PRN Reason Stop Dose Admin Acetaminophen 650 mg 12/21/19 02:22 12/21/19 02:47 Tylenol - PO 650 mg Q6H PRN Administration PAIN LEVEL 6-10 Albuterol Sulfate 2 puff 12/21/19 12:00 12/22/19 16:00 Ventolin Hfa Inhaler - IH 2 puff RQID [facility] Administration Ascorbic Acid 250 mg 12/21/19 10:00 12/22/19 10:22 Vitamin C - PO 250 mg DAILY [facility] Administration Aspirin 81 mg 12/21/19 10:00 12/22/19 10:21 Ecotrin - PO 81 mg DAILY [facility] Administration Atorvastatin Calcium 40 mg 12/21/19 22:00 12/21/19 22:45 Lipitor - PO 40 mg HS [facility] Administration Budesonide/Formoterol Fumarate 2 puff 12/21/19 10:00 12/22/19 10:23 Symbicort 80/4.5mcg - IH 2 puff BID [facility] Administration Docusate Sodium 100 mg 12/20/19 21:34 Colace - PO BID PRN CONSTIPATION Enoxaparin Sodium 40 mg 12/21/19 10:00 12/22/19 10:25 Lovenox - SQ 40 mg DAILY [facility] Administration Famotidine 40 mg 12/21/19 10:00 12/22/19 10:22 Pepcid - PO 40 mg DAILY [facility] Administration Furosemide 80 mg 12/21/19 10:00 12/22/19 10:21 Lasix - PO 80 mg DAILY [facility] Administration Azithromycin 250 mg/ Dextrose 250 mls @ 250 mls/hr 12/21/19 10:00 12/22/19 10:23 IVPB 250 mls/hr DAILY [facility] Administration Piperacillin Sod/Tazobactam 100 mls @ 200 mls/hr 12/22/19 21:00 Sod 4.5 gm/ Dextrose IVPB Q6H-IV [facility] Protocol Piperacillin Sod/Tazobactam 100 mls @ 200 mls/hr 12/22/19 15:00 12/22/19 15:05 Sod 4.5 gm/ Dextrose IVPB 12/23/19 09:29 200 mls/hr Q6H-IV [facility] Administration Lidocaine 1 patch 12/21/19 10:00 12/22/19 10:26 Lidoderm Patch - TP 1 patch DAILY [facility] Administration Methocarbamol 500 mg 12/21/19 06:00 12/22/19 13:53 Robaxin - PO 500 mg TID [facility] Administration Methylprednisolone Sodium Succinate 40 mg 12/22/19 10:25 12/22/19 17:16 Solu-Medrol - IVPUSH 40 mg Q8H-IV [facility] Administration Miscellaneous 1 each 12/21/19 22:00 12/21/19 22:44 Lidoderm Patch Removal MC 1 each DAILY@2200 [facility] Administration Roflumilast 500 mcg 12/21/19 10:00 12/22/19 10:22 Daliresp PO 500 mcg DAILY [facility] Administration Senna 2 tab 12/20/19 21:34 Senna - PO HS PRN CONSTIPATION Senna 1 tab 12/21/19 22:00 12/21/19 22:45 Senna - PO 1 tab HS [facility] Administration Sertraline HCl 25 mg 12/21/19 10:00 12/22/19 10:27 Zoloft - PO 25 mg DAILY [facility] Administration Tiotropium [place] 2 puff 12/21/19 10:00 12/22/19 10:23 Spiriva Respimat IH 2 puff DAILY [facility] Administration Zinc Sulfate 220 mg 12/21/19 10:00 12/22/19 10:22 Orazinc - PO 220 mg BID [facility] Administration Home Medications Medication Instructions Recorded Acetaminophen [Tylenol Extra 1 gm PO TID PRN 12/20/19 Strength] Albuterol Sulfate [Proair Hfa] 8.5 gm IH Q4H PRN 12/20/19 Aspirin Coated [Ecotrin -] 81 mg PO DAILY 12/20/19 Atorvastatin Calcium 40 mg PO HS 12/20/19 Budesonide/Formeterol Fumarate 2 inh PO BID 12/20/19 [SYMBICORT 80/4.5mcg -] Famotidine [Pepcid] 40 mg PO DAILY 12/20/19 Furosemide [Lasix] 80 mg PO DAILY 12/20/19 Ipratropium 0.02% Nebulizer 1 neb NEB TID 12/20/19 [Atrovent] Methocarbamol [Robaxin -] 500 mg PO TID 12/20/19 Roflumilast [Daliresp] 500 mcg PO DAILY 12/20/19 Sennosides [Senna -] 1 tab PO HS 12/20/19 Sertraline HCl [Zoloft] 25 mg PO DAILY 12/20/19 Tiotropium [place] [Spiriva] 1 puff IH DAILY 12/20/19 clonazePAM [Klonopin -] 0.5 mg PO TID PRN 12/20/19 ASSESSMENT AND PLAN: 89 year old male with history of HTN, HLD, CRF sec to COPD on 2 L home O2, CAD status post PCI in 2017, Chronic Venous Insufficiency, presents with complaint of fatigue, cough, and white sputum. CXR: interstitial lung disease, possible development of Right basilar infiltrates and small pleural effusion 1. Acute on chronic Respiratory failure secondary to acute COPD/ILD exacerbation + Pneumonia Pneumonia - HCAP vs Aspiration Afebrile, Hemodynamically Stable Decrease IV Solumedrol to 40mg q8h Continue Azithromycin. Change Cefriaxone to Zosyn. Speech/swallow eval recommends MBS. Symbicort, Spiriva, Daliresp, Albuterol. COVID PCR negative. Pulmonary following. 2. CAD s/p NSTEMI s/p PCI - Mild troponin egression, likely sec to demand ischemia. Last Stress Echo 2018 - no inducible ischemia. ECG - no acute changes. Continue Aspirin, Statin 3. Anxiety - continue Zoloft. 4. HLD - continue Statin 5. Chronic Venous Insufficiency - Continue Lasix 80mg daily. DVT Px - Lovenox SQ
[2019-12-22] MEDS: ALBUTEROL SO4 2.5/IPRATROPIUM 0.5 INH SOL 3 ML VIAL.NEB. NEB PRN (20:48)
[2019-12-22] MEDS: LIDOCAINE PATCH REMOVAL MC SCH (21:54)
[2019-12-22] MEDS: ATORVASTATIN CA 40 MG TABLET (FP) PO SCH (21:57)
[2019-12-22] MEDS: SENNOSIDES 8.6MG TABLET (FP) PO SCH (21:57)
[2019-12-22] MEDS: ACETAMINOPHEN 325 MG TABLET (FP) PO PRN (22:00)
[2019-12-23] MEDS ORDERED: DEXTROSE 5%-WATER 100 ML IVPB ONE ×2 (01:59→09:11)
[2019-12-23] MEDS ORDERED: PIPERACILLIN/TAZOBACTAM 4.5 GM VIAL IVPB ONE ×2 (01:59→09:11)
[2019-12-23] MEDS: methylPREDNISolone NA SUCC 40 MG/1 ML VIAL IVPUSH SCH ×2 (02:11→09:27)
[2019-12-23] MEDS: PIPERACILLIN/TAZOB 4.5 GM 4.5 GM in DEXTROSE 5%-WATER 100 ML IVPB SCH ×3 (02:11→17:52)
[2019-12-23] MEDS: METHOCARBAMOL 500 MG TABLET PO SCH ×3 (05:57→21:46)
[2019-12-23 08:30] LABS: ALBUMIN 2.4 g/dl (3.4-5.0); BILIRUBIN,TOTAL 0.4 mg/dL (0.2-1); BLOOD UREA NITROGEN 47.8 mg/dL (7-18); CALCIUM 8.5 mg/dL (8.5-10.1); POTASSIUM 3.7 mmol/L (3.5-5.1); TOT PROT 5.2 g/dl (6.4-8.2)
[2019-12-23 08:37] LABS: BASO % 0.1 % (0-2.0); HEMOGLOBIN 11.8 GM/dL (11.7-16.9); LYMPH % 9.7 % (8-40); MCH 30.5 pg (25.7-33.7); MCHC 33.7 g/dl (32.0-35.9); MEAN CELL VOLUME 90.5 fl (80-96); MEAN PLT VOLUME 7.4 fl (7.5-11.1); MONO % 4.7 % (3.8-10.2); NEUT % 85.5 % (42.8-82.8); PLATELET COUNT 303 K/MM3 (134-434); RBC 3.87 M/mm3 (4.00-5.60); RDW 16.8 % (11.9-15.9); WHITE BLOOD COUNT 6.5 K/mm3 (4.0-10.0)
[2019-12-23] MEDS ORDERED: PT OWN MED DRAWER 7, Y5N ONE ×2 (09:11→13:48)
[2019-12-23] MEDS: ENOXAPARIN NA (PORCINE) 40 MG/0.4 ML DISP.SYRIN SQ SCH (09:26)
[2019-12-23] MEDS: LIDOCAINE 5% TOPICAL PATCH TP SCH (09:26)
[2019-12-23] MEDS: ROFLUMILAST 500 MCG TABLET PO SCH (09:27)
[2019-12-23] MEDS: ASPIRIN COATED 81 MG TABLET.EC PO SCH (09:27)
[2019-12-23] MEDS: ASCORBIC ACID 250 MG TABLET (FP) PO SCH (09:27)
[2019-12-23] MEDS: FUROSEMIDE 40 MG TABLET (FP) PO SCH (09:27)
[2019-12-23] MEDS: SERTRALINE HCL 25 MG TABLET (FP) PO SCH (09:27)
[2019-12-23] MEDS: ALBUTEROL SO4 HFA INHALER IH SCH ×4 (09:28→21:46)
[2019-12-23] MEDS: FAMOTIDINE 40 MG TABLET PO SCH (09:28)
[2019-12-23] MEDS: TIOTROPIUM BROMIDE 2.5 MCG (SPIRIVA) RESPIMAT INHALER IH SCH (09:29)
[2019-12-23] MEDS: BUDESONIDE/FORMETEROL FUMARATE 80/4.5 mcg INHALER IH SCH ×2 (09:32→21:50)
[2019-12-23] MEDS: ZINC SULFATE 220 MG CAPSULE (FP) PO SCH ×2 (09:32→21:48)
[2019-12-23] MEDS: AZITHROMYCIN IVPB 250 MG in DEXTROSE 5%-WATER - 250 ML IVPB SCH (09:34)
--- NOTE | 2019-12-23 11:12 | PN ---
Progress Note (short form) - Note Progress Note: PULMONARY States breathing continues to improve. Less cough and wheezing. No fevers or chills. Vital Signs Period Temp Pulse Resp BP Sys/Donovan Pulse Ox Last 24 Hr 97.2 F-98.3 F 58-74 20-20 100-117/55-59 100 Gen: less tachypneic Heart: RRR Lung: scattered rhonchi Abd: soft, nontender Ext: no edema CBC, BMP 12/23/19 06:25 12/23/19 06:25 Active Medications Acetaminophen (Tylenol -) 650 mg PO Q6H PRN PRN Reason: PAIN LEVEL 6-10 Last Admin: 12/22/19 22:00 Dose: 650 mg Documented by: Albuterol Sulfate (Ventolin Hfa Inhaler -) 2 puff IH RQID [facility] Last Admin: 12/23/19 09:28 Dose: 2 puff Documented by: Albuterol/Ipratropium (Duoneb -) 1 amp NEB Q4H PRN PRN Reason: SHORTNESS OF BREATH Last Admin: 12/22/19 20:48 Dose: 1 amp Documented by: Ascorbic Acid (Vitamin C -) 250 mg PO DAILY [facility] Last Admin: 12/23/19 09:27 Dose: 250 mg Documented by: Aspirin (Ecotrin -) 81 mg PO DAILY [facility] Last Admin: 12/23/19 09:27 Dose: 81 mg Documented by: Atorvastatin Calcium (Lipitor -) 40 mg PO HS [facility] Last Admin: 12/22/19 21:57 Dose: 40 mg Documented by: Budesonide/Formoterol Fumarate (Symbicort 80/4.5mcg -) 2 puff IH BID [facility] Last Admin: 12/23/19 09:32 Dose: 2 puff Documented by: Docusate Sodium (Colace -) 100 mg PO BID PRN PRN Reason: CONSTIPATION Last Admin: 12/23/19 09:27 Dose: 100 mg Documented by: Enoxaparin Sodium (Lovenox -) 40 mg SQ DAILY [facility] Last Admin: 12/23/19 09:26 Dose: 40 mg Documented by: Famotidine (Pepcid -) 40 mg PO DAILY [facility] Last Admin: 12/23/19 09:28 Dose: 40 mg Documented by: Furosemide (Lasix -) 80 mg PO DAILY [facility] Last Admin: 12/23/19 09:27 Dose: 80 mg Documented by: Azithromycin 250 mg/ Dextrose 250 mls @ 250 mls/hr IVPB DAILY [facility] Last Admin: 12/23/19 09:34 Dose: 250 mls/hr Documented by: Piperacillin Sod/Tazobactam (Sod 4.5 gm/ Dextrose) 100 mls @ 200 mls/hr IVPB Q6H-IV [facility]; Protocol Lidocaine (Lidoderm Patch -) 1 patch TP DAILY [facility] Last Admin: 12/23/19 09:26 Dose: 1 patch Documented by: Methocarbamol (Robaxin -) 500 mg PO TID [facility] Last Admin: 12/23/19 05:57 Dose: 500 mg Documented by: Methylprednisolone Sodium Succinate (Solu-Medrol -) 40 mg IVPUSH Q8H-IV [facility] Last Admin: 12/23/19 09:27 Dose: 40 mg Documented by: Miscellaneous (Lidoderm Patch Removal) 1 each MC DAILY@2200 [facility] Last Admin: 12/22/19 21:54 Dose: 1 each Documented by: Roflumilast (Daliresp) 500 mcg PO DAILY [facility] Last Admin: 12/23/19 09:27 Dose: 500 mcg Documented by: Senna (Senna -) 2 tab PO HS PRN PRN Reason: CONSTIPATION Senna (Senna -) 1 tab PO HS [facility] Last Admin: 12/22/19 21:57 Dose: 1 tab Documented by: Sertraline HCl (Zoloft -) 25 mg PO DAILY [facility] Last Admin: 12/23/19 09:27 Dose: 25 mg Documented by: Tiotropium [place] (Spiriva Respimat) 2 puff IH DAILY [facility] Last Admin: 12/23/19 09:29 Dose: 2 puff Documented by: Zinc Sulfate (Orazinc -) 220 mg PO BID [facility] Last Admin: 12/23/19 09:32 Dose: 220 mg Documented by: A/P Acute COPD Exacerbation Suspect Pneumonia Chronic Hypoxic Respiratory Failure CAD +Troponins likely Demand Ischemia HTN Hyperlipidemia - continue medrol, can decrease to daily - continue antibiotics - inhaled bronchodilators - O2 to keep SpO2 >90% - DVT prophylaxis Problem List - Problems (1) COPD exacerbation Code(s): J44.1 - CHRONIC OBSTRUCTIVE PULMONARY DISEASE W (ACUTE) EXACERBATION
--- NOTE | 2019-12-23 11:45 | PN ---
Progress Note, Physician History of Present Illness: stable breathing better - Current Medication List Current Medications: Active Medications Acetaminophen (Tylenol -) 650 mg PO Q6H PRN PRN Reason: PAIN LEVEL 6-10 Last Admin: 12/22/19 22:00 Dose: 650 mg Documented by: Albuterol Sulfate (Ventolin Hfa Inhaler -) 2 puff IH RQID [facility] Last Admin: 12/23/19 09:28 Dose: 2 puff Documented by: Albuterol/Ipratropium (Duoneb -) 1 amp NEB Q4H PRN PRN Reason: SHORTNESS OF BREATH Last Admin: 12/22/19 20:48 Dose: 1 amp Documented by: Ascorbic Acid (Vitamin C -) 250 mg PO DAILY [facility] Last Admin: 12/23/19 09:27 Dose: 250 mg Documented by: Aspirin (Ecotrin -) 81 mg PO DAILY [facility] Last Admin: 12/23/19 09:27 Dose: 81 mg Documented by: Atorvastatin Calcium (Lipitor -) 40 mg PO HS [facility] Last Admin: 12/22/19 21:57 Dose: 40 mg Documented by: Budesonide/Formoterol Fumarate (Symbicort 80/4.5mcg -) 2 puff IH BID [facility] Last Admin: 12/23/19 09:32 Dose: 2 puff Documented by: Docusate Sodium (Colace -) 100 mg PO BID PRN PRN Reason: CONSTIPATION Last Admin: 12/23/19 09:27 Dose: 100 mg Documented by: Enoxaparin Sodium (Lovenox -) 40 mg SQ DAILY [facility] Last Admin: 12/23/19 09:26 Dose: 40 mg Documented by: Famotidine (Pepcid -) 40 mg PO DAILY [facility] Last Admin: 12/23/19 09:28 Dose: 40 mg Documented by: Furosemide (Lasix -) 80 mg PO DAILY [facility] Last Admin: 12/23/19 09:27 Dose: 80 mg Documented by: Azithromycin 250 mg/ Dextrose 250 mls @ 250 mls/hr IVPB DAILY [facility] Last Admin: 12/23/19 09:34 Dose: 250 mls/hr Documented by: Piperacillin Sod/Tazobactam (Sod 4.5 gm/ Dextrose) 100 mls @ 200 mls/hr IVPB Q6H-IV [facility]; Protocol Lidocaine (Lidoderm Patch -) 1 patch TP DAILY [facility] Last Admin: 12/23/19 09:26 Dose: 1 patch Documented by: Methocarbamol (Robaxin -) 500 mg PO TID [facility] Last Admin: 12/23/19 05:57 Dose: 500 mg Documented by: Methylprednisolone Sodium Succinate (Solu-Medrol -) 40 mg IVPUSH Q8H-IV [facility] Last Admin: 12/23/19 09:27 Dose: 40 mg Documented by: Miscellaneous (Lidoderm Patch Removal) 1 each MC DAILY@2200 [facility] Last Admin: 12/22/19 21:54 Dose: 1 each Documented by: Roflumilast (Daliresp) 500 mcg PO DAILY [facility] Last Admin: 12/23/19 09:27 Dose: 500 mcg Documented by: Senna (Senna -) 2 tab PO HS PRN PRN Reason: CONSTIPATION Senna (Senna -) 1 tab PO HS [facility] Last Admin: 12/22/19 21:57 Dose: 1 tab Documented by: Sertraline HCl (Zoloft -) 25 mg PO DAILY [facility] Last Admin: 12/23/19 09:27 Dose: 25 mg Documented by: Tiotropium [place] (Spiriva Respimat) 2 puff IH DAILY [facility] Last Admin: 12/23/19 09:29 Dose: 2 puff Documented by: Zinc Sulfate (Orazinc -) 220 mg PO BID [facility] Last Admin: 12/23/19 09:32 Dose: 220 mg Documented by: - Objective Vital Signs: Vital Signs Temperature 98.3 F 12/23/19 06:19 Pulse Rate 58 L 12/23/19 06:19 Respiratory Rate 20 12/23/19 10:00 Blood Pressure 105/55 L 12/23/19 06:19 O2 Sat by Pulse Oximetry (%) 99 12/23/19 10:00 Constitutional: Yes: No Distress, Calm Cardiovascular: Yes: S1, S2 Respiratory: Yes: Regular, CTA Bilaterally Gastrointestinal: Yes: Normal Bowel Sounds, Soft Musculoskeletal: Yes: WNL Extremities: Yes: WNL Neurological: Yes: Alert, Oriented Psychiatric: Yes: Alert, Oriented Labs: CBC, BMP 12/23/19 06:25 12/23/19 06:25 INR, PTT INR 1.15 (0.83-1.09) H 12/20/19 17:45 Assessment/Plan Acute COPD Exacerbation Suspect Pneumonia Chronic Hypoxic Respiratory Failure CAD +Troponins likely Demand Ischemia HTN Hyperlipidemia plan continue current mgmt rest as per the team
--- NOTE | 2019-12-23 12:34 | PN ---
Progress Note, ALLERGY NURSE - Note Progress Note: Selected Entries 12/22/19 12/22/19 12/22/19 01:00 06:46 08:25 Breakfast Lunch Supper Total Score - Skin Risk Assessment Temperature 98.9 F 97.5 F L 98.2 F Blood Pressure 120/58 L 112/60 106/49 L 12/22/19 12/22/19 12/22/19 15:32 15:33 16:30 Breakfast 25% Lunch 25% Supper Total Score - Skin Risk Assessment Temperature 97.9 F 98.2 F Blood Pressure 100/55 L 100/58 L 12/22/19 12/22/19 12/23/19 18:30 20:46 06:19 Breakfast Lunch Supper 25% Total Score - Skin Risk Assessment Temperature 97.2 F L 98.3 F Blood Pressure 117/59 L 105/55 L 12/23/19 10:00 Breakfast Lunch Supper Total Score - 17 Skin Risk Assessment Temperature Blood Pressure Laboratory Tests 12/20/19 12/23/19 17:10 06:25 WBC 6.5 COVID-19 ([facility]) Not detected For MBS
--- NOTE | 2019-12-23 14:21 | PN ---
Progress Note (short form) - Note Progress Note: cc: shortness of breath s: dyspnea improving. no palps, dizziness, chest pain Current Medications Generic Name Dose Route Start Last Admin Trade Name Freq PRN Reason Stop Dose Admin Acetaminophen 650 mg 12/21/19 02:22 12/22/19 22:00 Tylenol - PO 650 mg Q6H PRN Administration PAIN LEVEL 6-10 Albuterol Sulfate 2 puff 12/21/19 12:00 12/23/19 12:11 Ventolin Hfa Inhaler - IH 2 puff RQID [facility] Administration Albuterol/Ipratropium 1 amp 12/22/19 17:26 12/22/19 20:48 Duoneb - NEB 1 amp Q4H PRN Administration SHORTNESS OF BREATH Ascorbic Acid 250 mg 12/21/19 10:00 12/23/19 09:27 Vitamin C - PO 250 mg DAILY [facility] Administration Aspirin 81 mg 12/21/19 10:00 12/23/19 09:27 Ecotrin - PO 81 mg DAILY [facility] Administration Atorvastatin Calcium 40 mg 12/21/19 22:00 12/22/19 21:57 Lipitor - PO 40 mg HS [facility] Administration Budesonide/Formoterol Fumarate 2 puff 12/21/19 10:00 12/23/19 09:32 Symbicort 80/4.5mcg - IH 2 puff BID [facility] Administration Docusate Sodium 100 mg 12/20/19 21:34 12/23/19 09:27 Colace - PO 100 mg BID PRN Administration CONSTIPATION Enoxaparin Sodium 40 mg 12/21/19 10:00 12/23/19 09:26 Lovenox - SQ 40 mg DAILY [facility] Administration Famotidine 40 mg 12/21/19 10:00 12/23/19 09:28 Pepcid - PO 40 mg DAILY [facility] Administration Furosemide 80 mg 12/21/19 10:00 12/23/19 09:27 Lasix - PO 80 mg DAILY [facility] Administration Azithromycin 250 mg/ Dextrose 250 mls @ 250 mls/hr 12/21/19 10:00 12/23/19 09:34 IVPB 250 mls/hr DAILY [facility] Administration Piperacillin Sod/Tazobactam 100 mls @ 200 mls/hr 12/22/19 21:00 Sod 4.5 gm/ Dextrose IVPB Q6H-IV [facility] Protocol Lidocaine 1 patch 12/21/19 10:00 12/23/19 09:26 Lidoderm Patch - TP 1 patch DAILY [facility] Administration Methocarbamol 500 mg 12/21/19 06:00 12/23/19 05:57 Robaxin - PO 500 mg TID [facility] Administration Methylprednisolone Sodium Succinate 40 mg 12/22/19 10:25 12/23/19 09:27 Solu-Medrol - IVPUSH 40 mg Q8H-IV [facility] Administration Miscellaneous 1 each 12/21/19 22:00 12/22/19 21:54 Lidoderm Patch Removal MC 1 each DAILY@2200 [facility] Administration Roflumilast 500 mcg 12/21/19 10:00 12/23/19 09:27 Daliresp PO 500 mcg DAILY [facility] Administration Senna 2 tab 12/20/19 21:34 Senna - PO HS PRN CONSTIPATION Senna 1 tab 12/21/19 22:00 12/22/19 21:57 Senna - PO 1 tab HS [facility] Administration Sertraline HCl 25 mg 12/21/19 10:00 12/23/19 09:27 Zoloft - PO 25 mg DAILY [facility] Administration Tiotropium [place] 2 puff 12/21/19 10:00 12/23/19 09:29 Spiriva Respimat IH 2 puff DAILY [facility] Administration Zinc Sulfate 220 mg 12/21/19 10:00 12/23/19 09:32 Orazinc - PO 220 mg BID [facility] Administration Vital Signs Period Temp Pulse Resp BP Sys/Donovan Pulse Ox Last 24 Hr 97.2 F-98.3 F 58-74 20-20 100-117/55-59 99-100 Constitutional: Yes: Well Nourished, No Distress Eyes: No: Sclera Icterus HENT: No: Nasal Congestion Neck: No: Decreased ROM Respiratory: Yes: CTA Bilaterally (faint sounds diffusely), Wheezes (faint). No: Accessory Muscle Use, Rales Gastrointestinal: Yes: Normal Bowel Sounds. No: Distention, Hepatomegaly, Palpable Mass, Tenderness Cardiovascular: Yes: Regular Rate and Rhythm JVD: No Carotid Bruit: No PMI: Non-Displaced Heart Sounds: Yes: S1, S2. No: Gallop Murmur: No: Systolic Murmur, Diastolic Murmur Musculoskeletal: Yes: Other (No kyphosis) Extremities: No: Cool, Cyanosis Edema: no Integumentary: No: Jaundice Neurological: Yes: Alert, Oriented (x3) Psychiatric: No: Agitated Assessment/Plan Echo 05/12: nl LV/RV. nl valve fxn, no RVSP Stress Echo with definity contrast 06/2017: 1.20 min on rodney protocol. MPHR 115%. Non ischemic ekg changes. tds echo images. no inducible ischemia (lack of LV augmentation noted). pear rvsp at least 69. [facility] 05/2017: subtotal OM1--Xience. remainder unchanged: 30-50% dRCA, mild pLCX, 50-60% LPL1. EDP 10, nl EF CXR: no acute process ECG: sinus, nl intervals, no ischemic changes echo 07/2019 tds, RWMA cannot be excluded, nl LV function, impaired relaxation, nl RV, mild to mod MAC, mild TR, mild to mod aortic sclerosis shortness of breath, COPD exac - COVID serology negative - manage per primary, pulm CAD s/p NSTEMI, PCI 2016, elevated trop -trop indeterminate range, flat trend, not c/w ACS -ecg non-ischemic -cont home aspirin, statin COPD - manage per pulm edema, venous insufficiency - stable, cont PO lasix HTN: -cont home meds HLD - cont statin
[2019-12-23] MEDS ORDERED: ALPRAZolam 0.25 MG TABLET PO PRN (15:41)
--- NOTE | 2019-12-23 16:50 | PN ---
Physical Exam: SUBJECTIVE: Patient seen and examined patient was seen at bedside enjoying pancakes and scrabbled eggs. Patients only complaint is his productive sputum white in color, SOB, and mild dyspnea. Patient denies worsening dyspnea, nausea, vomiting, fever, chills, or chest pain. OBJECTIVE: Vital Signs Period Temp Pulse Resp BP Sys/Donovan Pulse Ox Last 24 Hr 97.2 F-98.3 F 58-75 18-20 105-117/55-70 99-100 GENERAL: The patient is awake, alert, and fully oriented, in no acute distress. HEAD: Normal with no signs of trauma. EYES: PERRL, extraocular movements intact, sclera anicteric, conjunctiva clear. No ptosis. ENT: Ears normal, nares patent, oropharynx clear without exudates, moist mucous membranes. NECK: Trachea midline, full range of motion, supple. LUNGS: + wheezes and rales on the right lower lobe. + for wheezes bilaterally. No accessory muscle use HEART: Regular rate and rhythm, S1, S2 without murmur, rub or gallop. ABDOMEN: Soft, nontender, nondistended, normoactive bowel sounds, no guarding, no rebound, no hepatosplenomegaly, no masses. EXTREMITIES: 2+ pulses, warm, well-perfused, no edema. NEUROLOGICAL: Cranial nerves II through XII grossly intact. Normal speech, gait not observed. PSYCH: Normal mood, normal affect. SKIN: Warm, dry, normal turgor, no rashes or lesions noted Laboratory Results - last 24 hr 12/23/19 12/23/19 06:25 06:25 WBC 6.5 RBC 3.87 L Hgb 11.8 Hct 35.0 L MCV 90.5 MCH 30.5 MCHC 33.7 RDW 16.8 H Plt Count 303 MPV 7.4 L Absolute Neuts (auto) 5.6 Neutrophils % 85.5 H Lymphocytes % 9.7 Monocytes % 4.7 Eosinophils % 0.0 Basophils % 0.1 Nucleated RBC % 0 Sodium 139 Potassium 3.7 Chloride 101 Carbon Dioxide 29 Anion Gap 8 BUN 47.8 H Creatinine 1.0 Est GFR (CKD-EPI)AfAm 78.08 Est GFR (CKD-EPI)NonAf 67.37 Random Glucose 120 H Calcium 8.5 Total Bilirubin 0.4 AST 31 ALT 23 Alkaline Phosphatase 59 Total Protein 5.2 L Albumin 2.4 L Active Medications Generic Name Dose Route Start Last Admin Trade Name Freq PRN Reason Stop Dose Admin Acetaminophen 650 mg 12/21/19 02:22 12/22/19 22:00 Tylenol - PO 650 mg Q6H PRN Administration PAIN LEVEL 6-10 Albuterol Sulfate 2 puff 12/21/19 12:00 12/23/19 12:11 Ventolin Hfa Inhaler - IH 2 puff RQID [facility] Administration Albuterol/Ipratropium 1 amp 12/22/19 17:26 12/22/19 20:48 Duoneb - NEB 1 amp Q4H PRN Administration SHORTNESS OF BREATH Alprazolam 0.25 mg 12/23/19 15:41 Xanax - PO Q24H PRN ANXIETY Amoxicillin/Clavulanate Potassium 1 tab 12/23/19 17:30 Augmentin - 875mg Tablet PO BID@0800,1730 [facility] Ascorbic Acid 250 mg 12/21/19 10:00 12/23/19 09:27 Vitamin C - PO 250 mg DAILY [facility] Administration Aspirin 81 mg 12/21/19 10:00 12/23/19 09:27 Ecotrin - PO 81 mg DAILY [facility] Administration Atorvastatin Calcium 40 mg 12/21/19 22:00 12/22/19 21:57 Lipitor - PO 40 mg HS [facility] Administration Budesonide/Formoterol Fumarate 2 puff 12/21/19 10:00 12/23/19 09:32 Symbicort 80/4.5mcg - IH 2 puff BID [facility] Administration Docusate Sodium 100 mg 12/20/19 21:34 12/23/19 09:27 Colace - PO 100 mg BID PRN Administration CONSTIPATION Enoxaparin Sodium 40 mg 12/21/19 10:00 12/23/19 09:26 Lovenox - SQ 40 mg DAILY [facility] Administration Famotidine 40 mg 12/21/19 10:00 12/23/19 09:28 Pepcid - PO 40 mg DAILY [facility] Administration Furosemide 80 mg 12/21/19 10:00 12/23/19 09:27 Lasix - PO 80 mg DAILY [facility] Administration Lidocaine 1 patch 12/21/19 10:00 12/23/19 09:26 Lidoderm Patch - TP 1 patch DAILY [facility] Administration Methocarbamol 500 mg 12/21/19 06:00 12/23/19 14:32 Robaxin - PO 500 mg TID [facility] Administration Methylprednisolone Sodium Succinate 40 mg 12/22/19 10:25 12/23/19 09:27 Solu-Medrol - IVPUSH 40 mg Q8H-IV [facility] Administration Miscellaneous 1 each 12/21/19 22:00 12/22/19 21:54 Lidoderm Patch Removal MC 1 each DAILY@2200 [facility] Administration Roflumilast 500 mcg 12/21/19 10:00 12/23/19 09:27 Daliresp PO 500 mcg DAILY [facility] Administration Senna 2 tab 12/20/19 21:34 Senna - PO HS PRN CONSTIPATION Senna 1 tab 12/21/19 22:00 12/22/19 21:57 Senna - PO 1 tab HS [facility] Administration Sertraline HCl 25 mg 12/21/19 10:00 12/23/19 09:27 Zoloft - PO 25 mg DAILY [facility] Administration Tiotropium [place] 2 puff 12/21/19 10:00 12/23/19 09:29 Spiriva Respimat IH 2 puff DAILY [facility] Administration Zinc Sulfate 220 mg 12/21/19 10:00 12/23/19 09:32 Orazinc - PO 220 mg BID [facility] Administration ASSESSMENT/PLAN: Patient is an 89 year old male with a past medical history of HTN/HLD/ COPD on home o2 2L, CAD s/p stent in '17, Presents to [facility] for a complaint of fatigue, cough with white sputum with similar symptoms throughout the year. Patient has suspected PNA with acute on chronic respiratory failure secondary to COPD exacerbation. 1. Acute on chronic resp failure - COPD exacerbation & pneumonia - Previously on PIP/Tazo and Azythromycin IV ABX changed to augmentin 875mg and oral Azythromycin as per ID - symbicort,spiriva, daliresp, albuterol - COVID negative - Pulm on board 2. Dysphagia - Barium swallow shows mild oral pharyngeal esophageal dysphagia - no aspiration demonstrated - recommended soft foods with extra gravy and single sips of thin liquid - upright for an hour after meals 3. Anxiety - continue home xanax 0.25 PRN as needed for anxiety 4. HDL - Home statin 5. Chronic Venous insufficiency - continue lasix 6. DVT prophylaxis - Lovenox SQ Visit type - Emergency Visit Emergency Visit: Yes ED Registration Date: 12/20/19 Care time: The patient presented to the Emergency Department on the above date and was hospitalized for further evaluation of their emergent condition. - New Patient This patient is new to me today: No - Critical Care Critical Care patient: No ATTENDING PHYSICIAN STATEMENT I saw and evaluated the patient. I reviewed the resident's note and discussed the case with the resident. I agree with the resident's findings and plan as documented. SUBJECTIVE: OBJECTIVE: ASSESSMENT AND PLAN:
--- NOTE | 2019-12-23 17:10 | PN ---
Teaching Attending Note Name of Resident: Prince Acosta ATTENDING PHYSICIAN STATEMENT I saw and evaluated the patient. I reviewed the resident's note and discussed the case with the resident. I agree with the resident's findings and plan as documented. SUBJECTIVE: Cough improving. No fever/chills. OBJECTIVE: Afebrile, Hemodynamically stable. Last Vital Signs Temp Pulse Resp BP Pulse Ox 98 F 71 18 107/45 L 99 12/23/19 16:30 12/23/19 16:30 12/23/19 16:30 12/23/19 16:30 12/23/19 10:00 HEENT - Atraumatic, Normocephalic. Heart - S1, S2, RRR lungs - R sided crackles + wheeze. Abdomen - Soft, non-tender. Bowel Sounds normal. Extremities - no edema, no calf tenderness. Chronic skin changes/hemosiderin deposits LEs. Laboratory Results - last 24 hr 12/23/19 12/23/19 06:25 06:25 WBC 6.5 RBC 3.87 L Hgb 11.8 Hct 35.0 L MCV 90.5 MCH 30.5 MCHC 33.7 RDW 16.8 H Plt Count 303 MPV 7.4 L Absolute Neuts (auto) 5.6 Neutrophils % 85.5 H Lymphocytes % 9.7 Monocytes % 4.7 Eosinophils % 0.0 Basophils % 0.1 Nucleated RBC % 0 Sodium 139 Potassium 3.7 Chloride 101 Carbon Dioxide 29 Anion Gap 8 BUN 47.8 H Creatinine 1.0 Est GFR (CKD-EPI)AfAm 78.08 Est GFR (CKD-EPI)NonAf 67.37 Random Glucose 120 H Calcium 8.5 Total Bilirubin 0.4 AST 31 ALT 23 Alkaline Phosphatase 59 Total Protein 5.2 L Albumin 2.4 L Current Medications Generic Name Dose Route Start Last Admin Trade Name Freq PRN Reason Stop Dose Admin Acetaminophen 650 mg 12/21/19 02:22 12/22/19 22:00 Tylenol - PO 650 mg Q6H PRN Administration PAIN LEVEL 6-10 Albuterol Sulfate 2 puff 12/21/19 12:00 12/23/19 12:11 Ventolin Hfa Inhaler - IH 2 puff RQID [facility] Administration Albuterol/Ipratropium 1 amp 12/22/19 17:26 12/22/19 20:48 Duoneb - NEB 1 amp Q4H PRN Administration SHORTNESS OF BREATH Alprazolam 0.25 mg 12/23/19 15:41 Xanax - PO Q24H PRN ANXIETY Amoxicillin/Clavulanate Potassium 1 tab 12/23/19 17:30 Augmentin - 875mg Tablet PO BID@0800,1730 [facility] Ascorbic Acid 250 mg 12/21/19 10:00 12/23/19 09:27 Vitamin C - PO 250 mg DAILY [facility] Administration Aspirin 81 mg 12/21/19 10:00 12/23/19 09:27 Ecotrin - PO 81 mg DAILY [facility] Administration Atorvastatin Calcium 40 mg 12/21/19 22:00 12/22/19 21:57 Lipitor - PO 40 mg HS [facility] Administration Budesonide/Formoterol Fumarate 2 puff 12/21/19 10:00 12/23/19 09:32 Symbicort 80/4.5mcg - IH 2 puff BID [facility] Administration Docusate Sodium 100 mg 12/20/19 21:34 12/23/19 09:27 Colace - PO 100 mg BID PRN Administration CONSTIPATION Enoxaparin Sodium 40 mg 12/21/19 10:00 12/23/19 09:26 Lovenox - SQ 40 mg DAILY [facility] Administration Famotidine 40 mg 12/21/19 10:00 12/23/19 09:28 Pepcid - PO 40 mg DAILY [facility] Administration Furosemide 80 mg 12/21/19 10:00 12/23/19 09:27 Lasix - PO 80 mg DAILY [facility] Administration Lidocaine 1 patch 12/21/19 10:00 12/23/19 09:26 Lidoderm Patch - TP 1 patch DAILY [facility] Administration Methocarbamol 500 mg 12/21/19 06:00 12/23/19 14:32 Robaxin - PO 500 mg TID [facility] Administration Methylprednisolone Sodium Succinate 40 mg 12/22/19 10:25 12/23/19 09:27 Solu-Medrol - IVPUSH 40 mg Q8H-IV [facility] Administration Miscellaneous 1 each 12/21/19 22:00 12/22/19 21:54 Lidoderm Patch Removal MC 1 each DAILY@2200 [facility] Administration Roflumilast 500 mcg 12/21/19 10:00 12/23/19 09:27 Daliresp PO 500 mcg DAILY [facility] Administration Senna 2 tab 12/20/19 21:34 Senna - PO HS PRN CONSTIPATION Senna 1 tab 12/21/19 22:00 12/22/19 21:57 Senna - PO 1 tab HS [facility] Administration Sertraline HCl 25 mg 12/21/19 10:00 12/23/19 09:27 Zoloft - PO 25 mg DAILY [facility] Administration Tiotropium [place] 2 puff 12/21/19 10:00 12/23/19 09:29 Spiriva Respimat IH 2 puff DAILY [facility] Administration Zinc Sulfate 220 mg 12/21/19 10:00 12/23/19 09:32 Orazinc - PO 220 mg BID [facility] Administration Home Medications Medication Instructions Recorded Acetaminophen [Tylenol Extra 1 gm PO TID PRN 12/20/19 Strength] Albuterol Sulfate [Proair Hfa] 8.5 gm IH Q4H PRN 12/20/19 Aspirin Coated [Ecotrin -] 81 mg PO DAILY 12/20/19 Atorvastatin Calcium 40 mg PO HS 12/20/19 Budesonide/Formeterol Fumarate 2 inh PO BID 12/20/19 [SYMBICORT 80/4.5mcg -] Famotidine [Pepcid] 40 mg PO DAILY 12/20/19 Furosemide [Lasix] 80 mg PO DAILY 12/20/19 Ipratropium 0.02% Nebulizer 1 neb NEB TID 12/20/19 [Atrovent] Methocarbamol [Robaxin -] 500 mg PO TID 12/20/19 Roflumilast [Daliresp] 500 mcg PO DAILY 12/20/19 Sennosides [Senna -] 1 tab PO HS 12/20/19 Sertraline HCl [Zoloft] 25 mg PO DAILY 12/20/19 Tiotropium [place] [Spiriva] 1 puff IH DAILY 12/20/19 clonazePAM [Klonopin -] 0.5 mg PO TID PRN 12/20/19 Alprazolam 0.25 mg PO DAILY PRN 12/23/19 ASSESSMENT AND PLAN: 89 year old male with history of HTN, HLD, CRF sec to COPD on 2 L home O2, CAD status post PCI in 2017, Chronic Venous Insufficiency, presents with complaint of fatigue, cough, and white sputum. CXR: interstitial lung disease, possible development of Right basilar infiltrates and small pleural effusion 1. Acute on Chronic Respiratory failure secondary to acute COPD/ILD exacerbation + Pneumonia Pneumonia - HCAP vs Aspiration Afebrile, Hemodynamically Stable Taper IV Solumedrol to 40mg daily Continue Azithromycin. Zosyn changed to Augmentin. Speech/swallow eval recommended MBS - shows mild [id number] dysphagia, recommend soft, easy to chew foods with sips of thin liquids. Symbicort, Spiriva, Daliresp, Albuterol. COVID PCR negative. Pulmonary following. 2. CAD s/p NSTEMI s/p PCI - Mild troponin egression, likely sec to demand ischemia. Last Stress Echo 2018 - no inducible ischemia. ECG - no acute changes. Continue Aspirin, Statin Troponin flat, no need for further work-up at this time as per Cardio. 3. Anxiety - continue Zoloft. 4. HLD - continue Statin 5. Chronic Venous Insufficiency - Continue Lasix 80mg daily. DVT Px - Lovenox SQ
[2019-12-23] MEDS: AMOX TR/POT CLAV 875MG/125MG TABLETS (FP) PO SCH (17:57)
[2019-12-23] MEDS: SENNOSIDES 8.6MG TABLET (FP) PO SCH (21:47)
[2019-12-23] MEDS: ATORVASTATIN CA 40 MG TABLET (FP) PO SCH (21:48)
[2019-12-23] MEDS: LIDOCAINE PATCH REMOVAL MC SCH (21:50)
[2019-12-24] MEDS: METHOCARBAMOL 500 MG TABLET PO SCH ×2 (06:28→14:06)
[2019-12-24] MEDS: AMOX TR/POT CLAV 875MG/125MG TABLETS (FP) PO SCH ×3 (08:12→16:15)
[2019-12-24] MEDS: ALBUTEROL SO4 HFA INHALER IH SCH ×3 (08:15→16:01)
[2019-12-24] MEDS: ALBUTEROL SO4 2.5/IPRATROPIUM 0.5 INH SOL 3 ML VIAL.NEB. NEB PRN (09:02)
[2019-12-24] MEDS ORDERED: PT OWN MED DRAWER 7, Y5N ONE (09:45)
[2019-12-24] MEDS: FAMOTIDINE 40 MG TABLET PO SCH (09:48)
[2019-12-24] MEDS: SERTRALINE HCL 25 MG TABLET (FP) PO SCH (09:48)
[2019-12-24] MEDS: FUROSEMIDE 40 MG TABLET (FP) PO SCH (09:48)
[2019-12-24] MEDS: ASPIRIN COATED 81 MG TABLET.EC PO SCH (09:49)
[2019-12-24] MEDS: ROFLUMILAST 500 MCG TABLET PO SCH (09:49)
[2019-12-24] MEDS: LIDOCAINE 5% TOPICAL PATCH TP SCH (09:49)
[2019-12-24] MEDS: ASCORBIC ACID 250 MG TABLET (FP) PO SCH (09:49)
[2019-12-24] MEDS: ZINC SULFATE 220 MG CAPSULE (FP) PO SCH (09:50)
[2019-12-24] MEDS: ENOXAPARIN NA (PORCINE) 40 MG/0.4 ML DISP.SYRIN SQ SCH (09:50)
[2019-12-24] MEDS: TIOTROPIUM BROMIDE 2.5 MCG (SPIRIVA) RESPIMAT INHALER IH SCH (09:51)
[2019-12-24] MEDS: BUDESONIDE/FORMETEROL FUMARATE 80/4.5 mcg INHALER IH SCH (09:51)
[2019-12-24] MEDS ORDERED: AZITHROMYCIN 250 MG TABLET PO SCH (10:00)
[2019-12-24] MEDS ORDERED: methylPREDNISolone NA SUCC 40 MG/1 ML VIAL IVPUSH SCH (10:00)
--- NOTE | 2019-12-24 10:10 | PN ---
Progress Note (short form) - Note Progress Note: PULMONARY Breathing continues to improve. Cough now with white sputum. No fevers or chills. Vital Signs Period Temp Pulse Resp BP Sys/Donovan Pulse Ox Last 24 Hr 97.5 F-98.2 F 62-78 18-20 98-117/45-70 99-99 Gen: less tachypneic Heart: RRR Lung: scattered rhonchi Abd: soft, nontender Ext: no edema CBC, BMP 12/23/19 06:25 12/23/19 06:25 Active Medications Acetaminophen (Tylenol -) 650 mg PO Q6H PRN PRN Reason: PAIN LEVEL 6-10 Last Admin: 12/22/19 22:00 Dose: 650 mg Documented by: Albuterol Sulfate (Ventolin Hfa Inhaler -) 2 puff IH RQID [facility] Last Admin: 12/24/19 08:15 Dose: 2 puff Documented by: Albuterol/Ipratropium (Duoneb -) 1 amp NEB Q4H PRN PRN Reason: SHORTNESS OF BREATH Last Admin: 12/24/19 09:02 Dose: 1 amp Documented by: Alprazolam (Xanax -) 0.25 mg PO Q24H PRN PRN Reason: ANXIETY Amoxicillin/Clavulanate Potassium (Augmentin - 875mg Tablet) 1 tab PO BID@0800,1730 [facility] Last Admin: 12/24/19 08:12 Dose: 1 tab Documented by: Ascorbic Acid (Vitamin C -) 250 mg PO DAILY [facility] Last Admin: 12/24/19 09:49 Dose: 250 mg Documented by: Aspirin (Ecotrin -) 81 mg PO DAILY [facility] Last Admin: 12/24/19 09:49 Dose: 81 mg Documented by: Atorvastatin Calcium (Lipitor -) 40 mg PO HS [facility] Last Admin: 12/23/19 21:48 Dose: 40 mg Documented by: Azithromycin (Zithromax -) 250 mg PO DAILY [facility] Stop: 12/25/19 10:01 Last Admin: 12/24/19 09:48 Dose: 250 mg Documented by: Budesonide/Formoterol Fumarate (Symbicort 80/4.5mcg -) 2 puff IH BID [facility] Last Admin: 12/24/19 09:51 Dose: 2 puff Documented by: Docusate Sodium (Colace -) 100 mg PO BID PRN PRN Reason: CONSTIPATION Last Admin: 12/23/19 09:27 Dose: 100 mg Documented by: Enoxaparin Sodium (Lovenox -) 40 mg SQ DAILY [facility] Last Admin: 12/24/19 09:50 Dose: 40 mg Documented by: Famotidine (Pepcid -) 40 mg PO DAILY [facility] Last Admin: 12/24/19 09:48 Dose: 40 mg Documented by: Furosemide (Lasix -) 80 mg PO DAILY [facility] Last Admin: 12/24/19 09:48 Dose: 80 mg Documented by: Lidocaine (Lidoderm Patch -) 1 patch TP DAILY [facility] Last Admin: 12/24/19 09:49 Dose: 1 patch Documented by: Methocarbamol (Robaxin -) 500 mg PO TID [facility] Last Admin: 12/24/19 06:28 Dose: 500 mg Documented by: Methylprednisolone Sodium Succinate (Solu-Medrol -) 40 mg IVPUSH DAILY [facility] Last Admin: 12/24/19 09:48 Dose: 40 mg Documented by: Miscellaneous (Lidoderm Patch Removal) 1 each MC DAILY@2200 [facility] Last Admin: 12/23/19 21:50 Dose: 1 each Documented by: Roflumilast (Daliresp) 500 mcg PO DAILY [facility] Last Admin: 12/24/19 09:49 Dose: 500 mcg Documented by: Patrick (Senna -) 2 tab PO HS PRN PRN Reason: CONSTIPATION Last Admin: 12/23/19 21:47 Dose: 2 tab Documented by: Patrick (Senna -) 1 tab PO HS [facility] Last Admin: 12/23/19 21:47 Dose: 1 tab Documented by: Sertraline HCl (Zoloft -) 25 mg PO DAILY [facility] Last Admin: 12/24/19 09:48 Dose: 25 mg Documented by: Tiotropium [place] (Spiriva Respimat) 2 puff IH DAILY [facility] Last Admin: 12/24/19 09:51 Dose: 2 puff Documented by: Zinc Sulfate (Orazinc -) 220 mg PO BID [facility] Last Admin: 12/24/19 09:50 Dose: 220 mg Documented by: A/P Acute COPD Exacerbation Suspect Pneumonia Chronic Hypoxic Respiratory Failure CAD +Troponins likely Demand Ischemia HTN Hyperlipidemia - can change steroids to PO prednisone 40mg daily - continue antibiotics - inhaled bronchodilators - O2 to keep SpO2 >90% - DVT prophylaxis Problem List - Problems (1) COPD exacerbation Code(s): J44.1 - CHRONIC OBSTRUCTIVE PULMONARY DISEASE W (ACUTE) EXACERBATION
[2019-12-24] MEDS ORDERED: predniSONE 20 MG TABLET (UD) PO ONE (10:17)
--- NOTE | 2019-12-24 11:27 | PN ---
Progress Note, HOSPITAL SECRETARY - Note Progress Note: Selected Entries 12/23/19 12/23/19 12/23/19 06:19 09:00 10:00 Breakfast 25% Diet Tolerated Fair Lunch 50% Supper Temperature 98.3 F Blood Pressure 105/55 L O2 Sat by Pulse 99 99 Oximetry (%) Oxygen Delivery Nasal Cannula Nasal Cannula Method Oxygen Flow 2 2 Rate 12/23/19 12/23/19 12/23/19 14:00 16:30 18:30 Breakfast Diet Tolerated Fair Lunch Supper 50% Temperature 97.6 F 98 F Blood Pressure 115/56 L 107/45 L O2 Sat by Pulse Oximetry (%) Oxygen Delivery Method Oxygen Flow Rate 12/23/19 12/23/19 12/23/19 20:52 21:00 22:00 Breakfast Diet Tolerated Lunch Supper Temperature 98.1 F Blood Pressure 109/55 L O2 Sat by Pulse 99 99 Oximetry (%) Oxygen Delivery Nasal Cannula Nasal Cannula Method Oxygen Flow 2 2 Rate 12/24/19 12/24/19 12/24/19 06:00 09:25 10:00 Breakfast 25% Diet Tolerated Fair Lunch Supper Temperature 97.5 F L 98.2 F Blood Pressure 117/49 L 98/54 L O2 Sat by Pulse Oximetry (%) Oxygen Delivery Method Oxygen Flow Rate Laboratory Tests 12/23/19 06:25 WBC 6.5 MBS completed. (-) aspiration.
--- NOTE | 2019-12-24 11:55 | PN ---
Progress Note, Physician History of Present Illness: stable no new issues breathing improving - Current Medication List Current Medications: Active Medications Acetaminophen (Tylenol -) 650 mg PO Q6H PRN PRN Reason: PAIN LEVEL 6-10 Last Admin: 12/22/19 22:00 Dose: 650 mg Documented by: Albuterol Sulfate (Ventolin Hfa Inhaler -) 2 puff IH RQID [facility] Last Admin: 12/24/19 08:15 Dose: 2 puff Documented by: Albuterol/Ipratropium (Duoneb -) 1 amp NEB Q4H PRN PRN Reason: SHORTNESS OF BREATH Last Admin: 12/24/19 09:02 Dose: 1 amp Documented by: Alprazolam (Xanax -) 0.25 mg PO Q24H PRN PRN Reason: ANXIETY Amoxicillin/Clavulanate Potassium (Augmentin - 875mg Tablet) 1 tab PO BID@0800,1730 [facility] Last Admin: 12/24/19 08:12 Dose: 1 tab Documented by: Ascorbic Acid (Vitamin C -) 250 mg PO DAILY [facility] Last Admin: 12/24/19 09:49 Dose: 250 mg Documented by: Aspirin (Ecotrin -) 81 mg PO DAILY [facility] Last Admin: 12/24/19 09:49 Dose: 81 mg Documented by: Atorvastatin Calcium (Lipitor -) 40 mg PO HS [facility] Last Admin: 12/23/19 21:48 Dose: 40 mg Documented by: Azithromycin (Zithromax -) 250 mg PO DAILY [facility] Stop: 12/25/19 10:01 Last Admin: 12/24/19 09:48 Dose: 250 mg Documented by: Budesonide/Formoterol Fumarate (Symbicort 80/4.5mcg -) 2 puff IH BID [facility] Last Admin: 12/24/19 09:51 Dose: 2 puff Documented by: Docusate Sodium (Colace -) 100 mg PO BID PRN PRN Reason: CONSTIPATION Last Admin: 12/23/19 09:27 Dose: 100 mg Documented by: Enoxaparin Sodium (Lovenox -) 40 mg SQ DAILY [facility] Last Admin: 12/24/19 09:50 Dose: 40 mg Documented by: Famotidine (Pepcid -) 40 mg PO DAILY [facility] Last Admin: 12/24/19 09:48 Dose: 40 mg Documented by: Furosemide (Lasix -) 80 mg PO DAILY [facility] Last Admin: 12/24/19 09:48 Dose: 80 mg Documented by: Lidocaine (Lidoderm Patch -) 1 patch TP DAILY [facility] Last Admin: 12/24/19 09:49 Dose: 1 patch Documented by: Methocarbamol (Robaxin -) 500 mg PO TID [facility] Last Admin: 12/24/19 06:28 Dose: 500 mg Documented by: Miscellaneous (Lidoderm Patch Removal) 1 each MC DAILY@2200 [facility] Last Admin: 12/23/19 21:50 Dose: 1 each Documented by: Prednisone (Deltasone -) 40 mg PO DAILY [facility] Roflumilast (Daliresp) 500 mcg PO DAILY [facility] Last Admin: 12/24/19 09:49 Dose: 500 mcg Documented by: Patrick (Senna -) 2 tab PO HS PRN PRN Reason: CONSTIPATION Last Admin: 12/23/19 21:47 Dose: 2 tab Documented by: Patrick (Senna -) 1 tab PO HS [facility] Last Admin: 12/23/19 21:47 Dose: 1 tab Documented by: Sertraline HCl (Zoloft -) 25 mg PO DAILY [facility] Last Admin: 12/24/19 09:48 Dose: 25 mg Documented by: Tiotropium [place] (Spiriva Respimat) 2 puff IH DAILY [facility] Last Admin: 12/24/19 09:51 Dose: 2 puff Documented by: Zinc Sulfate (Orazinc -) 220 mg PO BID [facility] Last Admin: 12/24/19 09:50 Dose: 220 mg Documented by: - Objective Vital Signs: Vital Signs Temperature 98.2 F 12/24/19 09:25 Pulse Rate 78 12/24/19 09:25 Respiratory Rate 20 12/24/19 09:25 Blood Pressure 98/54 L 12/24/19 09:25 O2 Sat by Pulse Oximetry (%) 99 12/23/19 22:00 Constitutional: Yes: No Distress, Calm Cardiovascular: Yes: S1, S2 Respiratory: Yes: Regular, CTA Bilaterally Gastrointestinal: Yes: Normal Bowel Sounds, Soft Musculoskeletal: Yes: WNL Extremities: Yes: WNL Neurological: Yes: Alert, Oriented Psychiatric: Yes: Alert, Oriented Labs: CBC, BMP 12/23/19 06:25 12/23/19 06:25 INR, PTT INR 1.15 (0.83-1.09) H 12/20/19 17:45 Assessment/Plan Acute COPD Exacerbation Suspect Pneumonia Chronic Hypoxic Respiratory Failure CAD +Troponins likely Demand Ischemia HTN Hyperlipidemia plan continue current mgmt rest as per the team
--- NOTE | 2019-12-24 11:58 | PN ---
Progress Note (short form) - Note Progress Note: cc: shortness of breath s: dyspnea improving. no palps, dizziness, chest pain Current Medications Generic Name Dose Route Start Last Admin Trade Name Freq PRN Reason Stop Dose Admin Acetaminophen 650 mg 12/21/19 02:22 12/22/19 22:00 Tylenol - PO 650 mg Q6H PRN Administration PAIN LEVEL 6-10 Albuterol Sulfate 2 puff 12/21/19 12:00 12/24/19 08:15 Ventolin Hfa Inhaler - IH 2 puff RQID [facility] Administration Albuterol/Ipratropium 1 amp 12/22/19 17:26 12/24/19 09:02 Duoneb - NEB 1 amp Q4H PRN Administration SHORTNESS OF BREATH Alprazolam 0.25 mg 12/23/19 15:41 Xanax - PO Q24H PRN ANXIETY Amoxicillin/Clavulanate Potassium 1 tab 12/23/19 17:30 12/24/19 08:12 Augmentin - 875mg Tablet PO 1 tab BID@0800,1730 [facility] Administration Ascorbic Acid 250 mg 12/21/19 10:00 12/24/19 09:49 Vitamin C - PO 250 mg DAILY [facility] Administration Aspirin 81 mg 12/21/19 10:00 12/24/19 09:49 Ecotrin - PO 81 mg DAILY [facility] Administration Atorvastatin Calcium 40 mg 12/21/19 22:00 12/23/19 21:48 Lipitor - PO 40 mg HS [facility] Administration Azithromycin 250 mg 12/24/19 10:00 12/24/19 09:48 Zithromax - PO 12/25/19 10:01 250 mg DAILY [facility] Administration Budesonide/Formoterol Fumarate 2 puff 12/21/19 10:00 12/24/19 09:51 Symbicort 80/4.5mcg - IH 2 puff BID [facility] Administration Docusate Sodium 100 mg 12/20/19 21:34 12/23/19 09:27 Colace - PO 100 mg BID PRN Administration CONSTIPATION Enoxaparin Sodium 40 mg 12/21/19 10:00 12/24/19 09:50 Lovenox - SQ 40 mg DAILY [facility] Administration Famotidine 40 mg 12/21/19 10:00 12/24/19 09:48 Pepcid - PO 40 mg DAILY [facility] Administration Furosemide 80 mg 12/21/19 10:00 12/24/19 09:48 Lasix - PO 80 mg DAILY [facility] Administration Lidocaine 1 patch 12/21/19 10:00 12/24/19 09:49 Lidoderm Patch - TP 1 patch DAILY [facility] Administration Methocarbamol 500 mg 12/21/19 06:00 12/24/19 06:28 Robaxin - PO 500 mg TID [facility] Administration Miscellaneous 1 each 12/21/19 22:00 12/23/19 21:50 Lidoderm Patch Removal MC 1 each DAILY@2200 [facility] Administration Prednisone 40 mg 12/25/19 10:00 Deltasone - PO DAILY [facility] Roflumilast 500 mcg 12/21/19 10:00 12/24/19 09:49 Daliresp PO 500 mcg DAILY [facility] Administration Senna 2 tab 12/20/19 21:34 12/23/19 21:47 Senna - PO 2 tab HS PRN Administration CONSTIPATION Senna 1 tab 12/21/19 22:00 12/23/19 21:47 Senna - PO 1 tab HS [facility] Administration Sertraline HCl 25 mg 12/21/19 10:00 12/24/19 09:48 Zoloft - PO 25 mg DAILY [facility] Administration Tiotropium [place] 2 puff 12/21/19 10:00 12/24/19 09:51 Spiriva Respimat IH 2 puff DAILY [facility] Administration Zinc Sulfate 220 mg 12/21/19 10:00 12/24/19 09:50 Orazinc - PO 220 mg BID [facility] Administration Vital Signs Period Temp Pulse Resp BP Sys/Donovan Pulse Ox Last 24 Hr 97.5 F-98.2 F 62-78 18-20 98-117/45-70 99-99 Constitutional: Yes: Well Nourished, No Distress Eyes: No: Sclera Icterus HENT: No: Nasal Congestion Neck: No: Decreased ROM Respiratory: Yes: CTA Bilaterally (faint sounds diffusely), Wheezes (faint). No: Accessory Muscle Use, Rales Gastrointestinal: Yes: Normal Bowel Sounds. No: Distention, Hepatomegaly, Palpable Mass, Tenderness Cardiovascular: Yes: Regular Rate and Rhythm JVD: No Carotid Bruit: No PMI: Non-Displaced Heart Sounds: Yes: S1, S2. No: Gallop Murmur: No: Systolic Murmur, Diastolic Murmur Extremities: No: Cool, Cyanosis Edema: no Integumentary: No: Jaundice Neurological: Yes: Alert, Oriented (x3) Psychiatric: No: Agitated Laboratory Last Values WBC 6.5 K/mm3 (4.0-10.0) 12/23/19 06:25 RBC 3.87 M/mm3 (4.00-5.60) L 12/23/19 06:25 Hgb 11.8 GM/dL (11.7-16.9) 12/23/19 06:25 Hct 35.0 % (35.4-49) L 12/23/19 06:25 MCV 90.5 fl (80-96) 12/23/19 06:25 MCH 30.5 pg (25.7-33.7) 12/23/19 06:25 MCHC 33.7 g/dl (32.0-35.9) 12/23/19 06:25 RDW 16.8 % (11.9-15.9) H 12/23/19 06:25 Plt Count 303 K/MM3 (134-434) 12/23/19 06:25 MPV 7.4 fl (7.5-11.1) L 12/23/19 06:25 Absolute Neuts (auto) 5.6 K/mm3 (1.5-8.0) 12/23/19 06:25 Neutrophils % 85.5 % (42.8-82.8) H 12/23/19 06:25 Lymphocytes % 9.7 % (8-40) 12/23/19 06:25 Monocytes % 4.7 % (3.8-10.2) 12/23/19 06:25 Eosinophils % 0.0 % (0-4.5) 12/23/19 06:25 Basophils % 0.1 % (0-2.0) 12/23/19 06:25 Nucleated RBC % 0 % (0-0) 12/23/19 06:25 PT with INR 13.60 SEC (9.7-13.0) H 12/20/19 17:45 INR 1.15 (0.83-1.09) H 12/20/19 17:45 PTT (Actin FS) 33.4 SECONDS (25.2-36.5) 12/20/19 17:45 VBG pH 7.412 (7.310-7.410) H 12/20/19 17:45 POC VBG pCO2 49.6 mmHg (38-52) 12/20/19 17:45 POC VBG pO2 33.8 mmHg (28-48) 12/20/19 17:45 VBG HCO3 30.9 mmol/L (23-29) H 12/20/19 17:45 VBG O2 Sat ([place]) 64.8 % (70-80) L 12/20/19 17:45 VBG Base Excess 5.1 mmol/L (-2-2) H 12/20/19 17:45 Sodium 139 mmol/L (136-145) 12/23/19 06:25 Potassium 3.7 mmol/L (3.5-5.1) 12/23/19 06:25 Chloride 101 mmol/L (98-107) 12/23/19 06:25 Carbon Dioxide 29 mmol/L (21-32) 12/23/19 06:25 Anion Gap 8 MMOL/L (8-16) 12/23/19 06:25 BUN 47.8 mg/dL (7-18) H 12/23/19 06:25 Creatinine 1.0 mg/dL (0.55-1.3) 12/23/19 06:25 Est GFR (CKD-EPI)AfAm 78.08 12/23/19 06:25 Est GFR (CKD-EPI)NonAf 67.37 12/23/19 06:25 Random Glucose 120 mg/dL (74-106) H 12/23/19 06:25 Calcium 8.5 mg/dL (8.5-10.1) 12/23/19 06:25 Phosphorus 3.9 mg/dL (2.5-4.9) 12/22/19 06:00 Magnesium 2.1 mg/dL (1.8-2.4) 12/22/19 06:00 Total Bilirubin 0.4 mg/dL (0.2-1) 12/23/19 06:25 AST 31 U/L (15-37) 12/23/19 06:25 ALT 23 U/L (13-61) 12/23/19 06:25 Alkaline Phosphatase 59 U/L (45-117) 12/23/19 06:25 Creatine Kinase 141 U/L (26-308) 12/20/19 17:45 Troponin I 0.05 ng/ml (0.00-0.05) 12/21/19 07:00 Total Protein 5.2 g/dl (6.4-8.2) L 12/23/19 06:25 Albumin 2.4 g/dl (3.4-5.0) L 12/23/19 06:25 Urine Color Yellow 12/20/19 18:00 Urine Appearance Clear 12/20/19 18:00 Urine pH 6.0 (5.0-8.0) 12/20/19 18:00 Ur Specific [place] 1.020 (1.010-1.035) 12/20/19 18:00 Urine Protein Negative (NEGATIVE) 12/20/19 18:00 Urine Glucose (UA) Negative (NEGATIVE) 12/20/19 18:00 Urine Ketones Negative (NEGATIVE) 12/20/19 18:00 Urine Blood Trace-intact (NEGATIVE) 12/20/19 18:00 Urine Nitrite Negative (NEGATIVE) 12/20/19 18:00 Urine Bilirubin Negative (NEGATIVE) 12/20/19 18:00 Urine Urobilinogen 0.2 mg/dL (0.2-1.0) 12/20/19 18:00 Ur Leukocyte Esterase Negative (NEGATIVE) 12/20/19 18:00 Urine WBC (Auto) 5.0 /uL (0-25.8) 12/20/19 18:00 Urine RBC (Auto) 10.7 /uL (0-23.9) 12/20/19 18:00 Urine Casts (Auto) 0.25 /uL (0-3.1) 12/20/19 18:00 U Epithel Cells (Auto) 5.3 /uL (0-25.1) 12/20/19 18:00 Urine Bacteria (Auto) 0.9 /uL (0-1359) 12/20/19 18:00 COVID-19 (LORNA) Not detected (Not Detected) 12/20/19 17:10 Assessment/Plan Echo 05/12: nl LV/RV. nl valve fxn, no RVSP Stress Echo with definity contrast 06/2017: 1.20 min on rodney protocol. MPHR 115%. Non ischemic ekg changes. tds echo images. no inducible ischemia (lack of LV augmentation noted). pear rvsp at least 69. LHC 05/2017: subtotal OM1--Xience. remainder unchanged: 30-50% dRCA, mild pLCX, 50-60% LPL1. EDP 10, nl EF CXR: no acute process ECG: sinus, nl intervals, no ischemic changes echo 07/2019 tds, RWMA cannot be excluded, nl LV function, impaired relaxation, nl RV, mild to mod MAC, mild TR, mild to mod aortic sclerosis shortness of breath, COPD exac - COVID serology negative - manage per primary, pulm CAD s/p NSTEMI, PCI 2016, elevated trop -trop indeterminate range, flat trend, not c/w ACS -ecg non-ischemic -cont home aspirin, statin COPD - manage per pulm edema, venous insufficiency - stable, cont PO lasix HTN: -cont home meds HLD - cont statin
[2019-12-24 15:44] VITALS: BP 137/58; PULSE 76; TEMP 97.8
--- NOTE | 2019-12-24 16:09 | DS ---
Physical Exam: SUBJECTIVE: Patient seen and examined at bedside. No acute events overnight and the patient does not offer new complaints. Patient endorses improvement in breathing status and comfort. OBJECTIVE: Vital Signs Period Temp Pulse Resp BP Sys/Donovan Pulse Ox Last 24 Hr 97.5 F-98.2 F 62-78 18-20 98-137/45-58 99-99 PHYSICAL EXAM GENERAL: The patient is awake, alert, and fully oriented, in no acute distress. HEAD: Normal with no signs of trauma. EYES: PERRL, extraocular movements intact, sclera anicteric, conjunctiva clear. ENT: Ears normal, nares patent, oropharynx clear without exudates, moist mucous membranes. NECK: Trachea midline, full range of motion, supple. LUNGS: Mild wheezing and crackles at L and R lung bases. HEART: Regular rate and rhythm, S1, S2 without murmur, rub or gallop. ABDOMEN: Soft, nontender, nondistended, normoactive bowel sounds, no guarding, no rebound, no hepatosplenomegaly, no masses. EXTREMITIES: 2+ pulses, warm, well-perfused, no edema. NEUROLOGICAL: Cranial nerves II through XII grossly intact. Normal speech, gait not observed. PSYCH: Normal mood, normal affect. SKIN: Warm, dry, normal turgor, no rashes or lesions noted. LABS HOSPITAL COURSE: Date of Admission:12/20/19 89M with a PMH of CAD sp stend in 2017, CVI, HTN/HLD, CRF 2* to COPD on 2L of O2 at home. Patient has been admitted due to increasing sputum production white in color, cough, weakness, and shortness of breath indicative of actue COPD exacerbation. As per pulmonology and infectious disease the patient was administered 80mg of lasix, augmentin, and azythromycin for associated COPD exacerbation and pneumonia respectively. Patient showed clinical improvement and dc to home. 1. Acute on chronic RF 2* to COPD exacerbation/pneumonia - patient placed on 5 day course of azithromycin 250mg to continue one more dose at home - patient placed on 7 day augmentin course 875 to continue 3 more doses at home - Modified barium swallow - recommendation of soft foods with thin liquids - 2L of home 02 - afebrile & hemodynamically stable - Follow up pulm w Dr. Smallwood - Follow up ID w Dr. Slaughter 2. Coronary Artery Disease - S/P stent 17 - mild trops trending down 0.8-0.5 - demand ischemia - last echo 05/12 shows normal LV/RV/valve fxn - Stress echo shows no inducible ischemia as well as dRCA shows 30-50% patency - Mild pLCX - 50-60% LPL1 as per Dr. Gibbs - ekg shows non ischemic changes 3. anxiety - sertraline 25mg - Alprazolam 0.25mg PRN 4. HLD - continue home statin 5. Chronic venous insufficiency - Lasix 80mg qd Date of Discharge: 12/24/19 Minutes to complete discharge: 40 Discharge Summary Problems reviewed: Yes Reason For Visit: PNEUMONIA,CHRONIC OBSTRUCTIVE PULMONARY DISEASE Condition: Improved - Instructions Diet, Activity, Other Instructions: Your visit: You were admitted for copd exacerbation and pneumonia treatment. While you were evaluated with lab work, blood work and imaging including an x- rays of your chest. While you were here we treated you with steroids, antibiotics and your symptoms improved. You were seen by our bobtail driver (Dr. Ceron) who would like you to follow up with him after discharge. You should continue your home medications as prescribed. You should follow up with your primary care doctor in 1 week after discharge. You should return to the ER if you have any worsening of your cough, shortness of breath, fevers, and any worsening of your symptoms. Care: It is advisable that you use incentive spirometry to monitor your lung function We advise you to maintain hydration and diet. We recommend soft, easy to chew foods with sips of thin liquids. We also advise you to hygiene and be aware of your symptom. If they reoccur please arrive to your nearest emergency department immediately. Medication: To complete the treatment of your condition, please take he following medications as prescribed - Augmentin 875 twice a day for 3 days starting tomorrow 12/24 and ending on 12/26 - Azythromycin 250mg one tablet daily for one more day - Prednisone 40 mg daily for one more day Follow up Please continue all your medications as prescribed Please follow up with your primary care physician (Hesham) within 1 week Please follow up with your bobtail driver Dr. Jacobo Ceron within 1 week Please follow up with your pull over machine operator, or the one we have provided you with, Dr. Gibbs, within 1 week. Please return to the emergency room if you experience any worsening of your symptoms, chest pain, shortness of breath, or trouble breathing. Referrals: Nile Dahl MD [Staff Physician] - 1 Week Ebony Gibbs MD [Staff Physician] - 1 Week Jacobo Ceron MD, MD [Staff Physician] - 1 Week Disposition: VNS/HOME HEALTH CARE - Home Medications Comprehensive Discharge Medication List: Ambulatory Orders Acetaminophen [Tylenol Extra Strength] 1 gm PO TID PRN 12/20/19 Albuterol Sulfate [Proair Hfa] 8.5 gm IH Q4H PRN 12/20/19 Aspirin Coated [Ecotrin -] 81 mg PO DAILY 12/20/19 Atorvastatin Calcium 40 mg PO HS 12/20/19 Budesonide/Formeterol Fumarate [SYMBICORT 80/4.5mcg -] 2 inh PO BID 12/20/19 Famotidine [Pepcid] 40 mg PO DAILY 12/20/19 Furosemide [Lasix] 80 mg PO DAILY 12/20/19 Ipratropium 0.02% Nebulizer [Atrovent 0.02% Nebulizer -] 1 neb NEB TID 12/20/19 Methocarbamol [Robaxin -] 500 mg PO TID 12/20/19 Roflumilast [Daliresp] 500 mcg PO DAILY 12/20/19 Sennosides [Senna -] 1 tab PO HS 12/20/19 Sertraline HCl [Zoloft] 25 mg PO DAILY 12/20/19 Tiotropium [place] [Spiriva] 1 puff IH DAILY 12/20/19 clonazePAM [Klonopin -] 0.5 mg PO TID PRN 12/20/19 Alprazolam 0.25 mg PO DAILY PRN 12/23/19 Amoxicillin/Potassium Clav [Augmentin 875-125 Tablet] 1 each PO BID #6 tablet 12/24/19 Azithromycin 250 mg PO DAILY #1 tablet 12/24/19 Prednisone 40 mg PO DAILY #1 tablet 12/24/19 This patient is new to me today: No Emergency Visit: Yes ED Registration Date: 12/20/19 Care time: The patient presented to the Emergency Department on the above date and was hospitalized for further evaluation of their emergent condition. Critical Care patient: No - Discharge Referral Referred to [facility] Med P.C.: No ATTENDING PHYSICIAN STATEMENT I saw and evaluated the patient. I reviewed the resident's note and discussed the case with the resident. I agree with the resident's findings and plan as documented. SUBJECTIVE: OBJECTIVE: ASSESSMENT AND PLAN:
--- NOTE | 2019-12-24 17:55 | PN ---
Teaching Attending Note Name of Resident: Prince Acosta ATTENDING PHYSICIAN STATEMENT I saw and evaluated the patient. I reviewed the resident's note and discussed the case with the resident. I agree with the resident's findings and plan as documented. SUBJECTIVE: Cough improving, whitish sputum. No fever/chills. OBJECTIVE: Afebrile, Hemodynamically stable. Last Vital Signs Temp Pulse Resp BP Pulse Ox 97.8 F 76 20 137/58 L 99 12/24/19 14:00 12/24/19 14:00 12/24/19 14:00 12/24/19 14:00 12/24/19 10:00 Heart - S1, S2, RRR lungs - R sided basal crackles. Abdomen - Soft, non-tender. Bowel Sounds normal. Extremities - no edema, no calf tenderness. Chronic skin changes/hemosiderin dep osits LEs. Discharge Medications Medication Instructions Recorded Acetaminophen [Tylenol Extra 1 gm PO TID PRN 12/20/19 Strength] Albuterol Sulfate [Proair Hfa] 8.5 gm IH Q4H PRN 12/20/19 Aspirin Coated [Ecotrin -] 81 mg PO DAILY 12/20/19 Atorvastatin Calcium 40 mg PO HS 12/20/19 Budesonide/Formeterol Fumarate 2 inh PO BID 12/20/19 [SYMBICORT 80/4.5mcg -] Famotidine [Pepcid] 40 mg PO DAILY 12/20/19 Furosemide [Lasix] 80 mg PO DAILY 12/20/19 Ipratropium 0.02% Nebulizer 1 neb NEB TID 12/20/19 [Atrovent 0.02% Nebulizer -] Methocarbamol [Robaxin -] 500 mg PO TID 12/20/19 Roflumilast [Daliresp] 500 mcg PO DAILY 12/20/19 Sennosides [Senna -] 1 tab PO HS 12/20/19 Sertraline HCl [Zoloft] 25 mg PO DAILY 12/20/19 Tiotropium [place] [Spiriva] 1 puff IH DAILY 12/20/19 clonazePAM [Klonopin -] 0.5 mg PO TID PRN 12/20/19 Alprazolam 0.25 mg PO DAILY PRN 12/23/19 Amoxicillin/Potassium Clav 1 each PO BID #6 tablet 12/24/19 [Augmentin 875-125 Tablet] Azithromycin 250 mg PO DAILY #1 tablet 12/24/19 Prednisone 40 mg PO DAILY #1 tablet 12/24/19 ASSESSMENT AND PLAN: 89 year old male with history of HTN, HLD, CRF sec to COPD on 2 L home O2, CAD status post PCI in 2017, Chronic Venous Insufficiency, presents with complaint of fatigue, cough, and white sputum. CXR: interstitial lung disease, possible development of Right basilar infiltrates and small pleural effusion 1. Acute on Chronic Respiratory failure secondary to acute COPD/ILD exacerbation + Pneumonia Pneumonia - HCAP vs Aspiration Afebrile, Hemodynamically Stable IV Solumedrol transitioned to 40mg daily for an additional day Continue Azithromycin for total 5 days, Augmentin for total 7 days. Speech/swallow eval recommended MBS - recommend soft, easy to chew foods with sips of thin liquids. Symbicort, Spiriva, Daliresp, Albuterol. COVID PCR negative. Pulmonary following. At baseline O2 requirements - 2L via [place]. 2. CAD s/p NSTEMI s/p PCI - Mild troponin egression, likely sec to demand ischemia. Last Stress Echo 2018 - no inducible ischemia. ECG - no acute changes. Continue Aspirin, Statin Troponin flat, no need for further work-up at this time as per Cardio. 3. Anxiety - continue Zoloft. 4. HLD - continue Statin 5. Chronic Venous Insufficiency - Continue Lasix 80mg daily. Medically optimized for discharge with Pulmonary out-patient follow up.
[2019-12-25] MEDS ORDERED: predniSONE 20 MG TABLET (UD) PO SCH (10:00)
== END 2019-12-24 16:31 | disposition home health service (06) | DRG 178 ==
LOC: JER 16:51 → JERBED 17:54 → J8W 12-21 00:03
PROVIDERS: ADMIT Internal Medicine
DX: J69.0 Pneumonitis due to inhalation of food and vomit (principal); J44.1 Chronic obstructive pulmonary disease with (acute) exacerbation; J98.11 Atelectasis; E46 Unspecified protein-calorie malnutrition; I24.8 Other forms of acute ischemic heart disease; I25.10 Atherosclerotic heart disease of native coronary artery without angina pectoris; J84.9 Interstitial pulmonary disease, unspecified; I87.2 Venous insufficiency (chronic) (peripheral); J44.9 Chronic obstructive pulmonary disease, unspecified; Z68.22 Body mass index [BMI] 22.0-22.9, adult; I10 Essential (primary) hypertension; E78.5 Hyperlipidemia, unspecified; F41.9 Anxiety disorder, unspecified; I25.2 Old myocardial infarction; N40.0 Benign prostatic hyperplasia without lower urinary tract symptoms; K59.09 Other constipation; F41.8 Other specified anxiety disorders; N42.83 Cyst of prostate; Z99.81 Dependence on supplemental oxygen; Z95.5 Presence of coronary angioplasty implant and graft
CPT/HCPCS: 36415; 71045-TC-FY; 74230-TC-FY; 80053; 81003; 82550; 82803; 83735; 84100; 84484; 85025; 85610; 85730; 87040; 87086; 92611-GN; 93005; 93010; 94010; 94640; 97116-GP; 99285-25; U0003

== ENCOUNTER 2020-01-08 16:27 | Inpatient (IN) | payer OTHER, BC ==
--- NOTE | 2020-01-08 17:07 | PDOC ---
History of Present Illness - General Chief Complaint: Respiratory Stated Complaint: RESPIRATORY Time Seen by Provider: 01/08/20 17:07 - History of Present Illness Initial Comments: Pt is a 89yo M with PMH HLD, COPD on 2L, CAD s/p PCI, s/p fall with broken ribs, who presents with SOB and weakness. Over the past week, weakness and SOB have been worsening. States that he has woken up from sleep several times with heavy breathing. Today, he became pale and diaphoretic after a bowel movement. Reports episodes of lightheadedness a/w sitting upright and standing. Reports occasionally productive whitish sputum and cough. Home nurse recommended that patient come to ED for his coughing. Denies f/c, chest pain, palpitations, abdominal pain. Recently discharged on 12/23 for COPD exacerbation/pneumonia, treated with azithromycin and augmentin. PCP: Hesham Hand Sign Writer: Dominga Pulm: Cl PMH: see HPI Meds: All: shrimp Social: former smoker 3PPD/20 years, social etoh use, denies illicit drug use Past History - Medical History Allergies/Adverse Reactions: Allergies Allergy/AdvReac Type Severity Reaction Status Date / Time shrimp Allergy Severe Swelling Verified 12/20/19 16:55 shrimp Allergy Unknown lip Uncoded 12/20/19 16:55 swelling Home Medications: Ambulatory Orders Acetaminophen [Tylenol Extra Strength] 1 gm PO TID PRN 12/20/19 Albuterol Sulfate [Proair Hfa] 8.5 gm IH Q4H PRN 12/20/19 Aspirin Coated [Ecotrin -] 81 mg PO DAILY 12/20/19 Atorvastatin Calcium 40 mg PO HS 12/20/19 Budesonide/Formeterol Fumarate [SYMBICORT 80/4.5mcg -] 2 inh PO BID 12/20/19 Famotidine [Pepcid] 40 mg PO DAILY 12/20/19 Furosemide [Lasix] 80 mg PO DAILY 12/20/19 Ipratropium 0.02% Nebulizer [Atrovent 0.02% Nebulizer -] 1 neb NEB TID 12/20/19 Methocarbamol [Robaxin -] 500 mg PO TID 12/20/19 Roflumilast [Daliresp] 500 mcg PO DAILY 12/20/19 Sennosides [Senna -] 1 tab PO HS 12/20/19 Sertraline HCl [Zoloft] 25 mg PO DAILY 12/20/19 Tiotropium [place] [Spiriva] 1 puff IH DAILY 12/20/19 clonazePAM [Klonopin -] 0.5 mg PO TID PRN 12/20/19 Alprazolam 0.25 mg PO DAILY PRN 12/23/19 Amoxicillin/Potassium Clav [Augmentin 875-125 Tablet] 1 each PO BID #6 tablet 12/24/19 Azithromycin 250 mg PO DAILY #1 tablet 12/24/19 Prednisone 40 mg PO DAILY #1 tablet 12/24/19 Anemia: No Asthma: No Cancer: No Cardiac Disorders: Yes (Venous Insufficiency, CAD) CVA: No COPD: Yes CHF: No DVT: No Dementia: No Diabetes: No Dialysis: No GI Disorders: Yes (Diverticulosis, GERD,) Disorders: Yes (prostate cyst) HTN: Yes Hypercholesterolemia: Yes Kidney Stones: No Liver Disease: No Psychiatric Problems: Yes (anxiety, depression) Seizures: No Thyroid Disease: No Lung CA: No - Surgical History Abdominal Surgery: No Appendectomy: No Cardiac Surgery: Yes (s/p stents) Cholecystectomy: No Gastric Stapling: No GI Surgery: No Lung Surgery: No Neurologic Surgery: No Orthopedic Surgery: No - Immunization History Td Vaccination: Yes TDAP Vaccination: Yes Immunization Up to Date: Yes - Psycho-Social/Smoking History Smoking Status: Yes Smoking History: Former smoker Have you smoked in the past 12 months: No Number of Cigarettes Smoked Daily: 40 If you are a former smoker, when did you quit?: 30 years ago Cigars Per Day: 0 Review of Systems - Review of Systems Comments:: CONSTITUTIONAL:Reports diaphoresis, generalized weakness, loss of appetite; denies fever, chills HEENT:Reports chronic nasal congestion CARDIOVASCULAR:Reports peripheral edema; denies chest pain, palpitations, irregular heart rate RESPIRATORY:Reports cough, shortness of breath, dyspnea with exertion, orthopnea; denies hemoptysis GASTROINTESTINAL: denies abdominal pain, nausea, vomiting, diarrhea, constipation, melena, hematochezia GENITOURINARY:denies dysuria, frequency, hematuria HEMATOLOGIC/IMMUNOLOGIC:Reports easy bruising ENDOCRINE: Reports unexpected weight loss (20lb in 6 mo) NEUROLOGIC:Reports lightheadedness, denies headache, loss of consciousness, mental status changes, bladder or bowel incontinence PSYCHIATRIC:Reports anxiety *Physical Exam - Physical Exam General: awake, alert, in no acute distress, well developed, well nourished Head: normocephalic, atraumatic ENT: Moist mucous membranes Lung: equal breath sounds b/l, CTA b/l, rales present; no distress, speaks full sentences Heart: RRR, normal S1, S2, no murmurs, rubs, gallops Abdomen: soft, non tender, normoactive bowel sounds, no guarding, rebound, masses Extremities: 2+ pitting edema b/l, DP pulses 2+ and symmetric Skin: stage 1 sacral pressure ulcer, b/l LE venous stasis changes ED Treatment Course - LABORATORY CBC & Chemistry Diagram: 01/08/20 17:40 01/08/20 17:40 Medical Decision Making - Medical Decision Making Mr. Ramirez is an 89 yo M with PMH HLD, COPD, CAD s/p PCI, who presents with weakness, SOB, and cough. Vital Signs Period Temp Pulse Resp BP Sys/Donovan Pulse Ox Last 24 Hr 97.8 F 77 20 104/58 100-100 DDx: CHF, COPD exacerbation, pneumonia Plan: labs, CXR, EKG EKG: HR 77bpm, normal sinus rhythm, NM 158ms, QRS 72ms, QTc 434ms, no ST changes 01/08/20 18:45 CBC no leukocytosis, no anemia CXR: R sided effusion worse than previous in Nov 2019 01/08/20 19:05 Laboratory 01/08/20 01/08/20 01/08/20 17:40 17:40 17:40 WBC 9.7 K/mm3 K/mm3 (4.0-10.0) RBC 4.40 M/mm3 M/mm3 (4.00-5.60) Hgb 13.5 GM/dL GM/dL (11.7-16.9) Hct 40.6 % D % (35.4-49) MCV 92.3 fl fl (80-96) MCH 30.6 pg pg (25.7-33.7) MCHC 33.1 g/dl g/dl (32.0-35.9) RDW 16.6 % H % (11.9-15.9) Plt Count 193 K/MM3 D K/MM3 (134-434) MPV 7.5 fl fl (7.5-11.1) Absolute Neuts (auto) 7.4 K/mm3 K/mm3 (1.5-8.0) Neutrophils % 76.3 % % (42.8-82.8) Lymphocytes % 15.9 % D % (8-40) Monocytes % 5.5 % % (3.8-10.2) Eosinophils % 1.6 % D % (0-4.5) Basophils % 0.7 % D % (0-2.0) Nucleated RBC % 0 % % (0-0) PT with INR 13.10 SEC H SEC (9.7-13.0) INR 1.11 H (0.83-1.09) PTT (Actin FS) 30.0 SECONDS SECONDS (25.2-36.5) Sodium 143 mmol/L mmol/L (136-145) Potassium 4.2 mmol/L mmol/L (3.5-5.1) Chloride 106 mmol/L mmol/L (98-107) Carbon Dioxide 35 mmol/L H mmol/L (21-32) Anion Gap 3 MMOL/L L MMOL/L (8-16) BUN 22.9 mg/dL H mg/dL (7-18) Creatinine 0.7 mg/dL mg/dL (0.55-1.3) Est GFR (CKD-EPI)AfAm 98.34 Est GFR (CKD-EPI)NonAf 84.85 Random Glucose 93 mg/dL mg/dL (74-106) Calcium 8.5 mg/dL mg/dL (8.5-10.1) Magnesium 1.9 mg/dL mg/dL (1.8-2.4) Total Bilirubin 0.5 mg/dL mg/dL (0.2-1) AST 33 U/L U/L (15-37) ALT 24 U/L U/L (13-61) Alkaline Phosphatase 54 U/L U/L (45-117) Creatine Kinase 104 U/L U/L (26-308) Troponin I 0.13 ng/ml H ng/ml (0.00-0.05) B-Natriuretic Peptide 767.7 pg/ml H pg/ml (5-450) Total Protein 5.1 g/dl L g/dl (6.4-8.2) Albumin 2.8 g/dl L g/dl (3.4-5.0) Trop elevated -> given aspirin Consults placed for Drs. Smallwood and Dominga Pt signed out to Dr. Nugent Disposition: Admit Discharge - Discharge Information Problems reviewed: Yes Clinical Impression/Diagnosis: Shortness of breath - Follow up/Referral Referrals: Nile Dahl MD [Primary Care Provider] - - Patient Discharge Instructions - Post Discharge Activity
[2020-01-08 17:16] VITALS: BMI 21.2
[2020-01-08 18:26] LABS: BASO % 0.7 % (0-2.0); EOS % 1.6 % (0-4.5); HEMATOCRIT 40.6 % (35.4-49); HEMOGLOBIN 13.5 GM/dL (11.7-16.9); LYMPH % 15.9 % (8-40); MCH 30.6 pg (25.7-33.7); MCHC 33.1 g/dl (32.0-35.9); MEAN CELL VOLUME 92.3 fl (80-96); MEAN PLT VOLUME 7.5 fl (7.5-11.1); MONO % 5.5 % (3.8-10.2); NEUT % 76.3 % (42.8-82.8); PLATELET COUNT 193 K/MM3 (134-434); RDW 16.6 % (11.9-15.9); WHITE BLOOD COUNT 9.7 K/mm3 (4.0-10.0)
[2020-01-08 18:41] LABS: INR 1.11 (0.83-1.09); PROTHROMBIN TIME (PATIENT) 13.1 SEC (9.7-13.0)
[2020-01-08 18:54] LABS: ALBUMIN 2.8 g/dl (3.4-5.0); BILIRUBIN,TOTAL 0.5 mg/dL (0.2-1); BLOOD UREA NITROGEN 22.9 mg/dL (7-18); CALCIUM 8.5 mg/dL (8.5-10.1); CREATININE 0.7 mg/dL (0.55-1.3); MAGNESIUM 1.9 mg/dL (1.8-2.4); N-TERMINAL BNP 767.7 pg/ml (5-450); POTASSIUM 4.2 mmol/L (3.5-5.1); TOT PROT 5.1 g/dl (6.4-8.2)
[2020-01-08] MEDS ORDERED: ASPIRIN 81 MG CHEWABLE TABLETS PO ONE (19:03)
--- NOTE | 2020-01-08 19:05 | PDOC ---
Documentation entered by Zakia Fischer SCRIBE, acting as scribe for Jaylan Massey MD. Jaylan Massey MD: This documentation has been prepared by the Amado gomes Sydney, SCRIBE, under my direction and personally reviewed by me in its entirety. I confirm that the documentation accurately reflects all work, treatment, procedures, and medical decision making performed by me. Attending Attestation - Resident Resident Name: TimKristina - ED Attending Attestation I have performed the following: I have examined & evaluated the patient, The case was reviewed & discussed with the resident, I agree w/resident's findings & plan, Exceptions are as noted - HPI HPI: 01/08/20 18:56 Patient is a 89 year old male with a significant past medical history of COPD, HTN, HLD, CAD who presents to the ED for worsening shortness of breath and weakness. Pt was recently admitted for COPD flare and was DC'ed with antibiotics and steroids. Patient notes that his symptoms have been progressively worsening over this past week since leaving the hospital, and he has had difficulty sleeping secondary to difficulty breathing. Patient endorsed an episode of lightheadedness and diaphoresis earlier today and states he occasionally produ chance white sputum with his cough. Patients home nurse suggested the patient report to the ED for his cough. Denies fever, chills, chest pain, or abdominal pain. Allergies: shrimp PCP: Dr. Dahl - Physicial Exam PE: 01/08/20 18:56 See resident exam - Medical Decision Making 01/08/20 19:07 89 M with SOB, cough. Suspect PNA vs CHF. Has underlying COPD but not actively wheezing. - Labs - CXR Discharge - Discharge Information Problems reviewed: Yes Clinical Impression/Diagnosis: Shortness of breath, Fluid overload, Pleural effusion due to CHF (congestive heart failure) Condition: Guarded - Follow up/Referral - Patient Discharge Instructions - Post Discharge Activity
--- NOTE | 2020-01-08 19:20 | PDOC ---
*Physical Exam - Vital Signs Last Vital Signs Temp Pulse Resp BP Pulse Ox 97.8 F 77 20 104/58 L 100 01/08/20 17:00 01/08/20 17:00 01/08/20 17:00 01/08/20 17:00 01/08/20 17:00 ED Treatment Course - LABORATORY CBC & Chemistry Diagram: 01/08/20 17:40 01/08/20 17:40 - ADDITIONAL ORDERS Additional order review: Laboratory Results 01/08/20 01/08/20 17:40 17:40 PT with INR 13.10 H INR 1.11 H PTT (Actin FS) 30.0 Sodium 143 Potassium 4.2 Chloride 106 Carbon Dioxide 35 H Anion Gap 3 L BUN 22.9 H Creatinine 0.7 Est GFR (CKD-EPI)AfAm 98.34 Est GFR (CKD-EPI)NonAf 84.85 Random Glucose 93 Calcium 8.5 Magnesium 1.9 Total Bilirubin 0.5 AST 33 ALT 24 Alkaline Phosphatase 54 Creatine Kinase 104 Troponin I 0.13 H B-Natriuretic Peptide 767.7 H Total Protein 5.1 L Albumin 2.8 L 01/08/20 17:40 RBC 4.40 MCV 92.3 MCHC 33.1 RDW 16.6 H MPV 7.5 Neutrophils % 76.3 Lymphocytes % 15.9 D Monocytes % 5.5 Eosinophils % 1.6 D Basophils % 0.7 D Medical Decision Making - Medical Decision Making 01/08/20 19:17 signed out from day team orthopnea x1 week; lightheaded w/ standing; incr cough chf vs copd troponins slightly elevated [x] f/u CT [x] admit 01/08/20 20:19 increased b/l pleural effusion on CT elevated BNP Lasix IVPUSH Discharge - Discharge Information Problems reviewed: Yes Clinical Impression/Diagnosis: Shortness of breath, Fluid overload Condition: Guarded - Admission Yes - Follow up/Referral - Patient Discharge Instructions - Post Discharge Activity
[2020-01-08] MEDS ORDERED: CEFTRIAXONE 1 GM in DEXTROSE 5%-WATER - 100 ML IVPB ONE (20:01)
[2020-01-08] MEDS ORDERED: AZITHROMYCIN IVPB 500 MG in DEXTROSE 5%-WATER - 250 ML IVPB ONE (20:01)
[2020-01-08] MEDS ORDERED: FUROSEMIDE 40 MG/4 ML INJECTABLE VIAL IVPUSH ONE (20:10)
[2020-01-08] MEDS ORDERED: ASPIRIN 81 MG CHEWABLE TABLETS ONE (20:34)
[2020-01-08] MEDS ORDERED: FUROSEMIDE 40 MG/4 ML INJECTABLE VIAL ONE (20:34)
--- NOTE | 2020-01-08 21:08 | PN ---
Teaching Attending Note Name of Resident: Magen Alvarado ATTENDING PHYSICIAN STATEMENT I saw and evaluated the patient. I reviewed the resident's note and discussed the case with the resident. I agree with the resident's findings and plan as documented. SUBJECTIVE: Patient is an 89 year old man with a PMH of HLD, COPD (on 2L O2), CAD (s/p PCI in 2017), Mechanical fall with left 7th rib fracture (11/24/2019) and BLE chronic venous insufficiency who presents with SOB and weakness. Over the past week, weakness and SOB have been worsening. States that he has woken up from sleep several times with heavy breathing. Today, he became pale and diaphoretic after a bowel movement. Reports episodes of lightheadedness associated with sitting upright and standing. Reports occasionally productive whitish sputum and cough. Home nurse recommended that patient come to ER for his coughing. Tested negative twice for COVID-19 in the last month. Denies fever, chills, nausea, vomiting, chest pain, palpitations, abdominal pain, diarrhea, dysuria, frequency or melena. Recently discharged on 12/24/2019 after admission for COPD exacerbation/pneumonia - was treated with Azithromycin and Augmentin. Denies alcohol, tobacco or illicit drug use. No sick contacts or recent travels. Family history is unremarkable. 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 OBJECTIVE: Alert and not orthostatic Vital Signs Period Temp Pulse Resp BP Sys/Donovan Pulse Ox Last 24 Hr 97.8 F 77 20 104/58 100-100 HEENT: No Jaundice, eye redness or discharge, PERRLA, EOMI. Normocephalic, atraumatic. External ears are normal; impaired hearing. No nasal discharge. Neck: Supple, nontender. No palpable adenopathy or thyromegaly. No JVD Chest: Good effort. Diffuse crackles. Clear to percussion. Heart: Regular. No S3, rub or murmur Abdomen: Not distended, soft, nontender and no HSM. No rebound or guarding. Normal bowel sounds. Ext: Peripheral pulses intact. Left arm edema. Leg edema, chronic stasis dermatitis changes, scabbed wound on left sawyer. Skin: Warm and dry. No petechiae, rash or ecchymosis. Sacral decubitus ulcer. Neuro: Alert. Globally weak. Unable to stand. Oriented x3. CN 2-12 grossly intact. Sensation grossly intact in all four extremities and DTR are symmetric. Gait not tested for safety reasons. Psych: Appropriate mood and affect. Good insight. Home Medications Medication Instructions Recorded Acetaminophen [Tylenol Extra 1 gm PO TID PRN 12/20/19 Strength] Albuterol Sulfate [Proair Hfa] 8.5 gm IH Q4H PRN 12/20/19 Aspirin Coated [Ecotrin -] 81 mg PO DAILY 12/20/19 Atorvastatin Calcium 40 mg PO HS 12/20/19 Budesonide/Formeterol Fumarate 2 inh PO BID 12/20/19 [SYMBICORT 80/4.5mcg -] Famotidine [Pepcid] 40 mg PO DAILY 12/20/19 Furosemide [Lasix] 80 mg PO DAILY 12/20/19 Ipratropium 0.02% Nebulizer 1 neb NEB TID 12/20/19 [Atrovent 0.02% Nebulizer -] Methocarbamol [Robaxin -] 500 mg PO TID 12/20/19 Roflumilast [Daliresp] 500 mcg PO DAILY 12/20/19 Sennosides [Senna -] 1 tab PO HS 12/20/19 Sertraline HCl [Zoloft] 25 mg PO DAILY 12/20/19 Tiotropium [place] [Spiriva] 1 puff IH DAILY 12/20/19 clonazePAM [Klonopin -] 0.5 mg PO TID PRN 12/20/19 Alprazolam 0.25 mg PO DAILY PRN 12/23/19 Amoxicillin/Potassium Clav 1 each PO BID #6 tablet 12/24/19 [Augmentin 875-125 Tablet] Azithromycin 250 mg PO DAILY #1 tablet 12/24/19 Prednisone 40 mg PO DAILY #1 tablet 12/24/19 Abnormal Lab Results 01/08/20 01/08/20 01/08/20 17:40 17:40 17:40 RDW 16.6 H PT with INR 13.10 H INR 1.11 H Carbon Dioxide 35 H Anion Gap 3 L BUN 22.9 H Troponin I 0.13 H B-Natriuretic Peptide 767.7 H Total Protein 5.1 L Albumin 2.8 L Current Medications Generic Name Dose Route Start Last Admin Trade Name Freq PRN Reason Stop Dose Admin Albuterol Sulfate 2 puff 01/09/20 00:09 Ventolin Hfa Inhaler - IH Q4H PRN SHORT OF BREATH/WHEEZING Aspirin 81 mg 01/09/20 10:00 Ecotrin - PO DAILY QUETA Atorvastatin Calcium 40 mg 01/09/20 22:00 Lipitor - PO HS QUETA Enoxaparin Sodium 40 mg 01/09/20 10:00 Lovenox - SQ DAILY QUETA Furosemide 80 mg 01/09/20 10:00 Lasix Injection - IVPUSH DAILY [facility] Multi-Ingredient Ointment 1 applic 01/09/20 10:00 Zinc Oxide TP BID QUETA Prednisone 40 mg 01/09/20 00:15 Deltasone - PO Q8H QUETA Senna 1 tab 01/09/20 22:00 Senna - PO HS QUETA Sertraline HCl 25 mg 01/09/20 10:00 Zoloft - PO DAILY [facility] ASSESSMENT AND PLAN: 1. ?New onset HFpEF/Pleural&Pericardial effusion/COPD exacerbation - His cardiopulmonary debility is likely due to a combination of all ailments - with CHF the main culprit at this time. CT scan of chest shows that his bilateral pleural effusion is increasing, and also shows bibasilar compressive atelectasis and small pericardial effusion. Most recent ECHO reportedly showed normal LV systolic function with impaired relaxation. Elevated troponin is likely due to demand ischemia and decreased clearance. He has chronic troponin elevation - was also elevated during his recent admissions and peaked at 0.34 on 11/25/2019. EKG shows NSR at 77/minute and QTc [address]-T wave changes. He made over 500 cc of urine after 40 mg IV Lasix in the ER and felt better. Viral testing for COVID-19 ordered and patient placed on airborne, droplet and contact isolation. Started on supplemental oxygen via nasal cannula. Urinalysis shows hematuria which is chronic. Will treat with IV Lasix to achieve adequate diuresis, restrict dietary salt intake, monitor renal function, monitor and replete electrolytes, get daily weight and consult Cardiology. ?Discuss utility of therapeutic/diagnostic thoracentesis with Cardiology and Pulmonary. Will admit to telemetry, trend troponin, treat patient with Xopenex, Symbicort, Prednisone, IV Azithromycin and consult Pulmonary. 2. Hypoalbuminemia - Possibly due to combined effects of malnutrition and inflammation associated with comorbid conditions. Will ensure adequate dietary protein intake and also consult dewatering filtering supervisor. 3. Hypertension Will restart suitable outpatient antihypertensive drugs when clinically appropriate. Subsequently, will revise regimen to ensure [id number] excellent BP control. Patient counseled on the injurious effects of uncontrolled hypertension. Nonpharmacologic measures to control hypertension like weight loss, salt restriction and exercise stressed. Importance of adherence to treatment regimen and attainment of normotension emphasized. 4. DVT prophylaxis - Lovenox 40 mg SQ q 24 hours. 5. Advance directives - Full code
[2020-01-08] MEDS ORDERED: ONDANSETRON 4 MG/2 ML VIAL IVPUSH ONE (21:15)
[2020-01-08 21:42] LABS: EPI CELLS 22 /uL (0-25.1); HYALINE CASTS 4 /uL (0-3.1); PH,URINE 5.5 (5.0-8.0); URINE APPEARANCE CLOUDY; URINE BACTERIA 9 /uL (0-1359); URINE BILIRUBIN NEGATIVE (NEGATIVE); URINE COLOR YELLOW; URINE GLUCOSE (UA) NEGATIVE (NEGATIVE); URINE KETONE NEGATIVE (NEGATIVE); URINE LEUK ESTERASE 1+ (NEGATIVE); URINE NITRITE NEGATIVE (NEGATIVE); URINE PROTEIN TRACE (NEGATIVE); URINE RBC 875 /uL (0-23.9); URINE UROBILINOGEN 0.2 mg/dL (0.2-1.0); URINE WBC 50 /uL (0-25.8)
[2020-01-09] MEDS ORDERED: ALBUTEROL SO4 HFA INHALER IH PRN (00:09)
--- NOTE | 2020-01-09 00:13 | HP ---
CHIEF COMPLAINT: SOB PCP: Dr. Dahl, Dr. Fairbanks (pulm), Dr. Orr (cardio) HISTORY OF PRESENT ILLNESS: 89 YO M p/w 3 days of progressively worsening SOB. He had orthopnea & woke up SOB. Worsening by exertion or lying in supine position; improved by sitting up. Starting this week, the pt began to feel light-headed and diaphoretic when standing or sitting up upright. He also had an episode light-headness and diaphoresis during a BM. Pt endorses strict compliance w/ rx. 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 Family History No significant family history Allergies shrimp Allergy (Severe, Verified 12/20/19 16:55) Swelling shrimp Allergy (Unknown, Uncoded 12/20/19 16:55) lip swelling HOME MEDICATIONS: Home Medications Medication Instructions Recorded Acetaminophen [Tylenol Extra 1 gm PO TID PRN 12/20/19 Strength] Albuterol Sulfate [Proair Hfa] 8.5 gm IH Q4H PRN 12/20/19 Aspirin Coated [Ecotrin -] 81 mg PO DAILY 12/20/19 Atorvastatin Calcium 40 mg PO HS 12/20/19 Budesonide/Formeterol Fumarate 2 inh PO BID 12/20/19 [SYMBICORT 80/4.5mcg -] Famotidine [Pepcid] 40 mg PO DAILY 12/20/19 Furosemide [Lasix] 80 mg PO DAILY 12/20/19 Ipratropium 0.02% Nebulizer 1 neb NEB TID 12/20/19 [Atrovent 0.02% Nebulizer -] Methocarbamol [Robaxin -] 500 mg PO TID 12/20/19 Roflumilast [Daliresp] 500 mcg PO DAILY 12/20/19 Sennosides [Senna -] 1 tab PO HS 12/20/19 Sertraline HCl [Zoloft] 25 mg PO DAILY 12/20/19 Tiotropium [place] [Spiriva] 1 puff IH DAILY 12/20/19 clonazePAM [Klonopin -] 0.5 mg PO TID PRN 12/20/19 Alprazolam 0.25 mg PO DAILY PRN 12/23/19 Amoxicillin/Potassium Clav 1 each PO BID #6 tablet 12/24/19 [Augmentin 875-125 Tablet] Azithromycin 250 mg PO DAILY #1 tablet 12/24/19 Prednisone 40 mg PO DAILY #1 tablet 12/24/19 REVIEW OF SYSTEMS CONSTITUTIONAL: Absent: fever, chills, diaphoresis, generalized weakness, malaise, loss of appetite, weight change HEENT: Absent: rhinorrhea, nasal congestion, throat pain, throat swelling, difficulty swallowing, mouth swelling, ear pain, eye pain, visual changes CARDIOVASCULAR: Absent: chest pain, syncope, palpitations, irregular heart rate, lightheadedness, peripheral edema RESPIRATORY: shortness of breath, but improved after IV Lasix were given in hospital Absent: cough, dyspnea with exertion, orthopnea, wheezing, stridor, hemoptysis GASTROINTESTINAL: Absent: abdominal pain, abdominal distension, nausea, vomiting, diarrhea, constipation, melena, hematochezia GENITOURINARY: Absent: dysuria, frequency, urgency, hesitancy, hematuria, flank pain, genital pain MUSCULOSKELETAL: Absent: myalgia, arthralgia, joint swelling, back pain, neck pain SKIN: Absent: rash, itching, pallor HEMATOLOGIC/IMMUNOLOGIC: Absent: easy bleeding, easy bruising, lymphadenopathy, frequent infections ENDOCRINE: Absent: unexplained weight gain, unexplained weight loss, heat intolerance, cold intolerance NEUROLOGIC: Absent: headache, focal weakness or paresthesias, dizziness, unsteady gait, seizure, mental status changes, bladder or bowel incontinence PSYCHIATRIC: anxiety Absent: depression, suicidal or homicidal ideation, hallucinations. PHYSICAL EXAMINATION Vital Signs - 24 hr 01/08/20 01/08/20 17:00 22:52 Temperature 97.8 F Pulse Rate 77 Pulse Rate [ 79 Right] Respiratory 20 20 Rate Blood Pressure 104/58 L Blood Pressure 103/64 [Right Arm] O2 Sat by Pulse 100 100 Oximetry (%) GENERAL: Awake, alert, and fully oriented, anxious, but cooperative HEAD: NT, NC EYES: Pupils equal, round and reactive to light, extraocular movements intact, sclera anicteric, conjunctiva clear. No lid lag. EARS, NOSE, THROAT: Ears normal, nares patent, oropharynx clear without exudates. Moist mucous membranes. NECK: Normal range of motion, supple without lymphadenopathy, JVD, or masses. LUNGS: Breath sounds equal, clear to auscultation bilaterally. No wheezes, and no crackles. No accessory muscle use. HEART: Regular rate and rhythm, normal S1 and S2 without murmur, rub or gallop. ABDOMEN: Soft, nontender, not distended, normoactive bowel sounds, no guarding, no rebound, no masses. 7th rib fracture site non-TTP, non-erythematous, non-edematous MUSCULOSKELETAL: Normal range of motion at all joints. No bony deformities or tenderness. No CVA tenderness. UPPER EXTREMITIES: 2+ pulses, warm, well-perfused. No cyanosis. No clubbing. No peripheral edema. L skin tear at elbow. Strength 5/5. Sensation intact. LOWER EXTREMITIES: 2+ pulses, warm, well-perfused. No calf tenderness. 2+ edema b/l. LE venous statis dermatitis. Strength 3/5. sensation intact NEUROLOGICAL: Cranial nerves II-XII intact, hearing impaired b/l, worse on the L. Normal speech. Normal gait. PSYCHIATRIC: Cooperative. Good eye contact. Appropriate mood and affect. SKIN: Warm, dry, normal turgor, no rashes or lesions noted, normal capillary refill. BACK: Stage 2 sacral decubitus ulcer Laboratory Results - last 24 hr 01/08/20 01/08/20 01/08/20 17:40 17:40 17:40 WBC 9.7 RBC 4.40 Hgb 13.5 Hct 40.6 D MCV 92.3 MCH 30.6 MCHC 33.1 RDW 16.6 H Plt Count 193 D MPV 7.5 Absolute Neuts (auto) 7.4 Neutrophils % 76.3 Lymphocytes % 15.9 D Monocytes % 5.5 Eosinophils % 1.6 D Basophils % 0.7 D Nucleated RBC % 0 PT with INR 13.10 H INR 1.11 H PTT (Actin FS) 30.0 Sodium 143 Potassium 4.2 Chloride 106 Carbon Dioxide 35 H Anion Gap 3 L BUN 22.9 H Creatinine 0.7 Est GFR (CKD-EPI)AfAm 98.34 Est GFR (CKD-EPI)NonAf 84.85 Random Glucose 93 Calcium 8.5 Magnesium 1.9 Total Bilirubin 0.5 AST 33 ALT 24 Alkaline Phosphatase 54 Creatine Kinase 104 Troponin I 0.13 H B-Natriuretic Peptide 767.7 H Total Protein 5.1 L Albumin 2.8 L Urine Color Urine Appearance Urine pH Ur Specific [place] Urine Protein Urine Glucose (UA) Urine Ketones Urine Blood Urine Nitrite Urine Bilirubin Urine Urobilinogen Ur Leukocyte Esterase Urine WBC (Auto) Urine RBC (Auto) Urine Casts (Auto) U Epithel Cells (Auto) Urine Bacteria (Auto) 01/08/20 20:30 WBC RBC Hgb Hct MCV MCH MCHC RDW Plt Count MPV Absolute Neuts (auto) Neutrophils % Lymphocytes % Monocytes % Eosinophils % Basophils % Nucleated RBC % PT with INR INR PTT (Actin FS) Sodium Potassium Chloride Carbon Dioxide Anion Gap BUN Creatinine Est GFR (CKD-EPI)AfAm Est GFR (CKD-EPI)NonAf Random Glucose Calcium Magnesium Total Bilirubin AST ALT Alkaline Phosphatase Creatine Kinase Troponin I B-Natriuretic Peptide Total Protein Albumin Urine Color Yellow Urine Appearance Cloudy Urine pH 5.5 Ur Specific [place] 1.022 Urine Protein Trace Urine Glucose (UA) Negative Urine Ketones Negative Urine Blood 3+ H Urine Nitrite Negative Urine Bilirubin Negative Urine Urobilinogen 0.2 Ur Leukocyte Esterase 1+ H Urine WBC (Auto) 50 Urine RBC (Auto) 875 Urine Casts (Auto) 4 U Epithel Cells (Auto) 22 Urine Bacteria (Auto) 9 Orthostatic Vitals Supine 92/42 HR 78 Sitting 103/64 HR 78 Standing: unable assess to pt unsteadiness to standing ASSESSMENT/PLAN: 89 YO M PMH COPD, HTN, HLD, CAD s/p stent (2017), broken ribs (s/p 1 month ago) p/w acute worsening of SOB in the last 3 days, orthopnea, and cough w/ white sputum. #SOB 2/2 Acute on Chronic CHF exacerbation BNP 767.7, CT: b/l pleural effusions is more indicative of CHF rather than PNA. No fever. WBCs are WNL -IV lasix 80 mg Daily -ECHO (05/16/19) EF 50-55% mild/moderate mitral annular calcification, tricuspid regurg, impaired LV relaxation -echo ordered #COPD -levalbuterol -predisone 40 mg PO TID -symbicort #sacral ulcer -Stage 2 sacral decubitus ulcer -started zinc oxide -Q2 position changes #CAD s/p 2017 -atorvastatin 40 mg PO HS -ASA 81 mg PO daily #Anxiety -sertraline 25 mg PO daily #DVT PPX lovenox 40 mg SQ #FEN no IV Fluids c/w #DISPO maintain med surg Visit type - Medication Review Med list reviewed for High Risk Meds patients 65 and older: Yes - Emergency Visit Emergency Visit: Yes ED Registration Date: 01/08/20 Care time: The patient presented to the Emergency Department on the above date and was hospitalized for further evaluation of their emergent condition. - New Patient This patient is new to me today: Yes Date on this admission: 01/09/20 - Critical Care Critical Care patient: No ATTENDING PHYSICIAN STATEMENT I saw and evaluated the patient. I reviewed the resident's note and discussed the case with the resident. I agree with the resident's findings and plan as documented. SUBJECTIVE: OBJECTIVE: ASSESSMENT AND PLAN:
[2020-01-09] MEDS ORDERED: LEVALBUTEROL HCL 0.31 MG/3 ML VIAL.NEB IH PRN (00:54)
[2020-01-09] MEDS ORDERED: LEVALBUTEROL HCL 0.31 MG/3 ML VIAL.NEB IH ONE (01:15)
[2020-01-09] MEDS ORDERED: predniSONE 20 MG TABLET (UD) PO SCH (06:00)
[2020-01-09] MEDS: BUDESONIDE/FORMETEROL FUMARATE 80/4.5 mcg INHALER IH SCH ×4 (06:08→21:44)
[2020-01-09 07:03] LABS: BASO % 0.6 % (0-2.0); EOS % 3.2 % (0-4.5); HEMATOCRIT 40.9 % (35.4-49); HEMOGLOBIN 13.6 GM/dL (11.7-16.9); LYMPH % 19.4 % (8-40); MCH 30.5 pg (25.7-33.7); MCHC 33.3 g/dl (32.0-35.9); MEAN CELL VOLUME 91.6 fl (80-96); MEAN PLT VOLUME 7.1 fl (7.5-11.1); MONO % 6.4 % (3.8-10.2); NEUT % 70.4 % (42.8-82.8); PLATELET COUNT 186 K/MM3 (134-434); RBC 4.46 M/mm3 (4.00-5.60); RDW 16.7 % (11.9-15.9); WHITE BLOOD COUNT 8.3 K/mm3 (4.0-10.0)
[2020-01-09 07:30] LABS: ALBUMIN 2.8 g/dl (3.4-5.0); BILIRUBIN,TOTAL 0.7 mg/dL (0.2-1); BLOOD UREA NITROGEN 21.3 mg/dL (7-18); CALCIUM 8.8 mg/dL (8.5-10.1); CREATININE 0.7 mg/dL (0.55-1.3); MAGNESIUM 1.8 mg/dL (1.8-2.4); PHOSPHOROUS 3.2 mg/dL (2.5-4.9); POTASSIUM 3.9 mmol/L (3.5-5.1); TOT PROT 5.3 g/dl (6.4-8.2)
--- NOTE | 2020-01-09 07:35 | CON.CARD ---
Consult Consult Specialty:: cardio - History of Present Illness Chief Complaint: sob History of Present Illness: 89 M with progressive sob, weakness. Over the past week, weakness and SOB have been worsening. + PND episodes. + LH when standing up. pale and diaphoretic in setting of BM on DOA Reports occasionally productive whitish sputum and cough. s/p fall with rib fracture 12/11. Tested negative twice for COVID-19 in the last month. Recently discharged on 12/24/2019 after admission for COPD exacerbation/pneumonia Treated with lasix 80 po during that admission. hospital course: Covid pending normal temp curve BP stable 100% on 2.5 L BNP 700 (baseline 400-500) trop 0.1-0.1 CT chest mod effusions incr vs 12/11 presently denies sob, laying in bed. denies PND overnight last night. urinated a lot with lasix 80 IV, but also urinates copiously with 80 PO dose at home. never had any chest pain since the fall last month he has become deconditioned, not ambulating--using WC. home PT just started. legs have been minimally swollen at home CAD diast HF HPL COPD (O2 dependent) anxiety venous insufficiency - Past Medical History Cardio/Vascular: Yes: HTN, Hyperlipdemia Pulmonary: Yes: COPD, O2 Dependent, Pneumonia Gastrointestinal: Yes: Constipation Renal/: Yes: BPH Psych: Yes: Anxiety Musculoskeletal: Yes: Osteoarthritis ENT: Yes: Sinusitis - Past Surgical History Past Surgical History: Yes: Cataract Removal (bilateral) - Alcohol/Substance Use Hx Alcohol Use: No History of Substance Use: reports: None - Smoking History Smoking history: Former smoker Have you smoked in the past 12 months: No Aproximately how many cigarettes per day: 40 If you are a former smoker, when did you quit?: 30 years ago - Social History Usual Living Arrangement: With Spouse ADL: Independent Occupation: retired History of Recent Travel: No Home Medications - Allergies Allergies/Adverse Reactions: Allergies Allergy/AdvReac Type Severity Reaction Status Date / Time shrimp Allergy Severe Swelling Verified 12/20/19 16:55 shrimp Allergy Unknown lip Uncoded 12/20/19 16:55 swelling - Home Medications Home Medications: Ambulatory Orders Acetaminophen [Tylenol Extra Strength] 1 gm PO TID PRN 12/20/19 Albuterol Sulfate [Proair Hfa] 8.5 gm IH Q4H PRN 12/20/19 Aspirin Coated [Ecotrin -] 81 mg PO DAILY 12/20/19 Atorvastatin Calcium 40 mg PO HS 12/20/19 Budesonide/Formeterol Fumarate [SYMBICORT 80/4.5mcg -] 2 inh PO BID 12/20/19 Famotidine [Pepcid] 40 mg PO DAILY 12/20/19 Furosemide [Lasix] 80 mg PO DAILY 12/20/19 Ipratropium 0.02% Nebulizer [Atrovent 0.02% Nebulizer -] 1 neb NEB TID 12/20/19 Methocarbamol [Robaxin -] 500 mg PO TID 12/20/19 Roflumilast [Daliresp] 500 mcg PO DAILY 12/20/19 Sennosides [Senna -] 1 tab PO HS 12/20/19 Sertraline HCl [Zoloft] 25 mg PO DAILY 12/20/19 Tiotropium [place] [Spiriva] 1 puff IH DAILY 12/20/19 clonazePAM [Klonopin -] 0.5 mg PO TID PRN 12/20/19 Alprazolam 0.25 mg PO DAILY PRN 12/23/19 Amoxicillin/Potassium Clav [Augmentin 875-125 Tablet] 1 each PO BID #6 tablet 12/24/19 Azithromycin 250 mg PO DAILY #1 tablet 12/24/19 Prednisone 40 mg PO DAILY #1 tablet 12/24/19 Family Medical History Family History: Denies (no known cmp) Review of Systems - Review of Systems Constitutional: reports: Weakness. denies: Chills, Fever Eyes: denies: Eye Pain HENT: denies: Nasal Congestion Neck: denies: Stiffness Cardiovascular: denies: Palpitations Respiratory: reports: PND. denies: Orthopnea Gastrointestinal: denies: Diarrhea, Rectal Bleeding Genitourinary: denies: Burning, Hematuria Musculoskeletal: denies: Muscle Pain Integumentary: denies: Rash Neurological: denies: Numbness, Seizure, Syncope Endocrine: denies: Excessive Sweating Hematology/Lymphatic: denies: Excessive Bleeding Vital Signs: Vital Signs Temperature 98.1 F 01/09/20 04:00 Pulse Rate 74 01/09/20 04:00 Respiratory Rate 24 H 01/09/20 04:00 Blood Pressure 105/55 L 01/09/20 04:00 O2 Sat by Pulse Oximetry (%) 95 01/09/20 01:00 Constitutional: Yes: Well Nourished, No Distress Eyes: No: Sclera Icterus HENT: No: Nasal Congestion Neck: No: Decreased ROM Respiratory: Yes: CTA Bilaterally (decr diffusely (copd)). No: Accessory Muscle Use, Rales, Wheezes Gastrointestinal: Yes: Normal Bowel Sounds. No: Distention, Hepatomegaly, Palpable Mass, Tenderness Cardiovascular: Yes: Regular Rate and Rhythm JVD: No Carotid Bruit: No PMI: Non-Displaced Heart Sounds: Yes: S1, S2. No: Gallop Murmur: No: Systolic Murmur (decr intensity sounds sec to copd), Diastolic Murmur Musculoskeletal: Yes: Other (No kyphosis) Extremities: No: Cool, Cyanosis Edema: No Peripheral Pulses: 2+ Left Carotid, 2+ Right Carotid, 2+ Left Doralis Pedis, 2+ Right Dorsalis Pedis Integumentary: No: Jaundice Neurological: Yes: Alert, Oriented (x3) Psychiatric: No: Agitated - Other Data Labs, Other Data: CBC, BMP 01/09/20 06:18 INR, PTT INR 1.11 (0.83-1.09) H 01/08/20 17:40 Troponin, BNP 01/08/20 01/09/20 17:40 01:20 Troponin I 0.13 H 0.12 H B-Natriuretic Peptide 767.7 H Troponin, BNP 01/08/20 01/09/20 17:40 01:20 Troponin I 0.13 H 0.12 H B-Natriuretic Peptide 767.7 H Assessment/Plan Echo 08/2019: 1. This was a technically difficult study with suboptimal views--Definity contrast agent used. 2. The left ventricular size is normal. 3. Left ventricular systolic function is hyperdynamic with an estimated EF of >70%. 4. LA pressure is uncertain. 5. The RV was not well visualized; probably normal in size and function. 6. Left atrium is probably normal size by volume. 7. The aortic valve was not well visualized; leaflets are at least moderately thickened where visualized, with restricted mobility--cannot exclude severe restriction of mobility on the available images. 8. Moderate to severe aortic stenosis with peak/mean pressure gradient of 30 / 18 mmHg, and aortic valve area by continuity equation of 0.9 cm2. AV area is of uncertain accuracy, due to technical limitations of LVOT doppler signals (despite multiple recording attempts performed). SV index = 29 cc/m2. These results are potentially consistent with paradoxical low output, low gradient severe aortic stenosis. 9. There is at least mild pulmonary hypertension (TR doppler signal cut off). 10. The right ventricular systolic pressure is at least 42 mmHg (assuming RA pressure of 3). CT chest: mod pleural effusions increased vs 12/11, with compressive ATX. new bilateral flank subcutaneous edema. severe emphys changes. EKG: NSR, low voltage, ? old ASMI, NSTWAs--no change tele: NSR, extensive artifact Acute on chronic diastolic congestive heart failure, WHO 2 +/- 3 PH: -S/P ACUTE HFPEF 06/2019--OF NOTE NO OBVIOUS VOLUME ON EXAM THEN (LE EDEMA SEC TO VENOUS INSUFFICIENCY, WITHOUT JVD OR CONGESTION ON CHEST CT), BUT SOB MUCH IMPROVED AFTER SINGLE DOSE IV LASIX IN HOSPITAL-->BP DOWN TO 90S. -CLINICAL ASSESSMENT IS VERY DIFFICULT DUE TO SIGNIF ANTICIPATORY ANXIETY NOW ABOUT SOB WITH ACTIVITIES, AND VERY TDS HISTORY/PHYS EXAM AND ECHO DUE TO SEVERE COPD AND VENOUS INS. -EDEMA AND WT IMPROVED WITH INCR LASIX 40 TO 80 IN OFFICE SEVERAL MONTHS AGO (RUNNING 155-158 LBS). HOWEVER SOB PERSISTED. CHANGED TO 60 QD (09/10) -MILD PULM HTN ON PRIOR RHC WITH INCR TO >60 ON STRESS ECHO -PRESENTLY WITH MODERATE (ENLARGING) PLEURAL EFFUSIONS, BNP SLIGHTLY HIGHER THAN PRIOR, EPISODES OF PND. WT DOWN VS PRIOR (? LOSS OF MUSCLE MASS GIVEN FRAILTY OF LATE). -AGREE WITH LASIX 80 IV QD -DISC'D WITH PT AND THAT WE HAVE NOT DEFINITIVELY EXCLUDED OBSTRUCTIVE OR CAD CAUSE OF HIS CLINICAL WORSENING THE PAST 6-9 MONTHS, NOR HAVE WE DEFINED EXTENT OF HFPEF VS COPD SX'S. REC WE DO LEFT/RIGHT HEART CATH AND E[facility] PRIOR TO DISCHARGE, AND CONSIDER CARDIOMEMS IMPLANT IF FILLING PRESSURES ARE ELEVATED. WHILE THEY DO NOT WANT HIM TO GO THROUGH MORE INVASIVE PROCEDURES, THEY UNDERSTAND THAT HE IS LIKELY TO PROGRESSIVELY DETERIORATE WITH THE STATUS QUO AND AGREE TO WORKUP TO RULE OUT REVERSIBLE ETIOLOGY. -CANNOT TRAVEL TO [facility], REQUEST TRANSFER TO [facility] FOR WORKUP, WILL ARRANGE ON SATURDAY Chronic ischemic heart disease: -12/17 NSTEMI, WITH MARKED PROGRESSION OF OM1 DISEASE--XIENCE MEDARDO. NO RESIDUAL OBSTRUCTIVE CAD PRESENT. -CONTINUE ASA, STATIN. METOPR HELD (FREQUENT COPD EXACERBATIONS, NYHA III SX'S)--NO ANGINA. -SIGNIF DECLINE IN E.T. WITH RECURRENT HFPEF IN PAST SEVERAL MONTHS--PHARM MPI PLANNED TO CONFIRM NO NEW ISCHEMIC SUBSTRATE, NOT COMPLETED SECONDARY TO COVID -NO SIGNS OF ACUTE ISCHEMIA HERE -FOR CATH Aortic stenosis: -MODERATE ON ECHO 11/2019 (GOOD DOPPLER ALIGNMENTS). -VERY SOFT HEART SOUNDS SEC TO COPD--PROHIBITIVELY TDS EXAM. NOW WITH NEW HFPEF SYNDROME, DECLINING CLINICAL STATUS. TDS IMAGES OF VALVE ON ECHO TODAY, WITH MODERATE THICKENING AND RESTRICTED MO BILITY WHERE VISUALIZED. GRADIENTS MODERATE, SAMANTHA SEVERE (SV INDEX LOW, HOWEVER LVOT DOPPLER SIGNAL SUSPECT). -PLAN WAS FOR REPEAT ECHO +/- NIYA AT [facility]--DEFERRED DUE TO COVID EPIDEMIC AND PT HI RISK FOR INFECTION -FOR CATH AND ECHO AT [facility] COPD: -per pulmonary/hospitalist pale/diaphoretic with BM: -pt with known vasovagal presyncope in the past, current episode highly likely same process -no signs of ACS as above
[2020-01-09] MEDS ORDERED: FUROSEMIDE 40 MG/4 ML INJECTABLE VIAL IVPUSH SCH (10:00)
[2020-01-09] MEDS: ZINC OXIDE 20% TOPICAL OINTMENT 30 GM TUBE TP SCH ×3 (10:09→22:39)
[2020-01-09] MEDS: ENOXAPARIN NA (PORCINE) 40 MG/0.4 ML DISP.SYRIN SQ SCH (10:09)
[2020-01-09] MEDS: SERTRALINE HCL 25 MG TABLET (FP) PO SCH (10:09)
[2020-01-09] MEDS: ASPIRIN COATED 81 MG TABLET.EC PO SCH (10:09)
--- NOTE | 2020-01-09 15:01 | EKG ---
Test Reason : Blood Pressure : / mmHG Vent. Rate : 077 BPM Atrial Rate : 077 BPM P-R Int : 158 ms QRS Dur : 072 ms QT Int : 384 ms P-R-T Axes : 103 -09 061 degrees QTc Int : 434 ms POOR DATA QUALITY, INTERPRETATION MAY BE ADVERSELY AFFECTED NORMAL SINUS RHYTHM LOW VOLTAGE QRS CANNOT RULE OUT ANTEROSEPTAL INFARCT (CITED ON OR BEFORE 08-JAN-2020) ABNORMAL ECG WHEN COMPARED WITH ECG OF 20-DEC-2019 17:19, NO SIGNIFICANT CHANGE WAS FOUND Confirmed by KEVIN SEVERINO MD ([id number]) on 01/09/2020 3:01:34 PM Referred By: Confirmed By:KEVIN SEVERINO MD
--- NOTE | 2020-01-09 15:48 | CON.PULM ---
Consult Consult Specialty:: PULM/CCM Referred by:: PRADIP Reason for Consultation:: SOB - History of Present Illness Chief Complaint: SOB History of Present Illness: 89 M, well known to our service. 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 Admitted via the ER due to 3 days of progressively worsening SOB. No increase in congested cough or sputum production. No fever or chills. CT : Increasing bilateral pleural effusions / stable sub-centimeter nodules - History Source History Provided By: Patient Limitations to Obtaining History: No Limitations - Past Medical History Cardio/Vascular: Yes: HTN, Hyperlipdemia Pulmonary: Yes: COPD, O2 Dependent, Pneumonia Gastrointestinal: Yes: Constipation Renal/: Yes: BPH Psych: Yes: Anxiety Musculoskeletal: Yes: Osteoarthritis ENT: Yes: Sinusitis - Past Surgical History Past Surgical History: Yes: Cataract Removal (bilateral) - Alcohol/Substance Use Hx Alcohol Use: No History of Substance Use: reports: None - Smoking History Smoking history: Former smoker Have you smoked in the past 12 months: No Aproximately how many cigarettes per day: 40 If you are a former smoker, when did you quit?: 30 years ago - Social History Usual Living Arrangement: With Spouse ADL: Independent Occupation: retired History of Recent Travel: No Home Medications - Allergies Allergies/Adverse Reactions: Allergies Allergy/AdvReac Type Severity Reaction Status Date / Time shrimp Allergy Severe Swelling Verified 12/20/19 16:55 shrimp Allergy Unknown lip Uncoded 12/20/19 16:55 swelling - Home Medications Home Medications: Ambulatory Orders Acetaminophen [Tylenol Extra Strength] 1 gm PO TID PRN 12/20/19 Albuterol Sulfate [Proair Hfa] 8.5 gm IH Q4H PRN 12/20/19 Aspirin Coated [Ecotrin -] 81 mg PO DAILY 12/20/19 Atorvastatin Calcium 40 mg PO HS 12/20/19 Budesonide/Formeterol Fumarate [SYMBICORT 80/4.5mcg -] 2 inh PO BID 12/20/19 Famotidine [Pepcid] 40 mg PO DAILY 12/20/19 Furosemide [Lasix] 80 mg PO DAILY 12/20/19 Ipratropium 0.02% Nebulizer [Atrovent 0.02% Nebulizer -] 1 neb NEB TID 12/20/19 Methocarbamol [Robaxin -] 500 mg PO TID 12/20/19 Roflumilast [Daliresp] 500 mcg PO DAILY 12/20/19 Sennosides [Senna -] 1 tab PO HS 12/20/19 Sertraline HCl [Zoloft] 25 mg PO DAILY 12/20/19 Tiotropium [place] [Spiriva] 1 puff IH DAILY 12/20/19 clonazePAM [Klonopin -] 0.5 mg PO TID PRN 12/20/19 Alprazolam 0.25 mg PO DAILY PRN 12/23/19 Amoxicillin/Potassium Clav [Augmentin 875-125 Tablet] 1 each PO BID #6 tablet 12/24/19 Azithromycin 250 mg PO DAILY #1 tablet 12/24/19 Prednisone 40 mg PO DAILY #1 tablet 12/24/19 Review of Systems - Review of Systems Constitutional: reports: Malaise. denies: Chills, Fever, Night Sweats Eyes: reports: No Symptoms HENT: reports: No Symptoms, Ringing in Ears Neck: reports: No Symptoms Cardiovascular: reports: Shortness of Breath. denies: Chest Pain, Edema, Palpitations Respiratory: reports: Cough, Orthopnea, SOB, SOB on Exertion. denies: Hemoptysis, PND, Snoring, Wheezing Gastrointestinal: reports: No Symptoms Genitourinary: reports: No Symptoms Breasts: reports: No Symptoms Reported Musculoskeletal: reports: Back Pain Integumentary: reports: No Symptoms Neurological: reports: No Symptoms Endocrine: reports: No Symptoms Hematology/Lymphatic: reports: No Symptoms Psychiatric: reports: No Symptoms Physical Exam Vital Sings: Vital Signs Temperature 98 F 01/09/20 12:00 Pulse Rate 89 01/09/20 12:00 Respiratory Rate 20 01/09/20 13:00 Blood Pressure 120/62 01/09/20 12:00 O2 Sat by Pulse Oximetry (%) 96 01/09/20 13:00 Constitutional: Yes: Mild Distress, Thin Eyes: Yes: Conjunctiva Clear, EOM Intact HENT: Yes: Atraumatic, Normocephalic Neck: Yes: Supple, Trachea Midline Cardiovascular: Yes: Regular Rate and Rhythm Respiratory: Yes: Cough, Diminished, On Nasal O2, Rales, Rhonchi, SOB, SOB on Exertion, Tachypnea. No: Accessory Muscle Use, Stridor, Wheezes ...Inspection: Yes: WNL ...Clubbing: No Gastrointestinal: Yes: Normal Bowel Sounds, Soft Renal/: Yes: WNL Musculoskeletal: Yes: WNL Extremities: Yes: WNL Edema: No Peripheral Pulses WNL: Yes Integumentary: Yes: WNL Neurological: Yes: WNL, Alert, Oriented ...Motor Strength: WNL Psychiatric: Yes: WNL, Alert, Oriented Labs: CBC, BMP 01/09/20 06:18 01/09/20 06:18 Imaging - Results Chest X-ray: Report Reviewed, Image Reviewed Cat Scan: Report Reviewed, Image Reviewed Problem List - Problems (1) Pleural effusion due to CHF (congestive heart failure) Code(s): I50.9 - HEART FAILURE, UNSPECIFIED (2) Fluid overload Code(s): E87.70 - FLUID OVERLOAD, UNSPECIFIED (3) Shortness of breath Code(s): R06.02 - SHORTNESS OF BREATH (4) COPD (chronic obstructive pulmonary disease) Code(s): J44.9 - CHRONIC OBSTRUCTIVE PULMONARY DISEASE, UNSPECIFIED Qualifiers: COPD type: COPD with acute exacerbation Qualified Code(s): J44.1 - Chronic obstructive pulmonary disease with (acute) exacerbation (5) Chronic venous insufficiency of lower extremity Code(s): I87.2 - VENOUS INSUFFICIENCY (CHRONIC) (PERIPHERAL) (6) HLD (hyperlipidemia) Code(s): E78.5 - HYPERLIPIDEMIA, UNSPECIFIED (7) Hypertension Code(s): I10 - ESSENTIAL (PRIMARY) HYPERTENSION Qualifiers: Hypertension type: essential hypertension Qualified Code(s): I10 - Essential (primary) hypertension (8) Iron deficiency anemia Code(s): D50.9 - IRON DEFICIENCY ANEMIA, UNSPECIFIED (9) Lung nodule Code(s): R91.1 - SOLITARY PULMONARY NODULE (10) Presence of stent in coronary artery in patient with coronary artery dise ase Code(s): I25.10 - ATHSCL HEART DISEASE OF [place] CORONARY ARTERY W/O ANG PCTRS; Z95.5 - PRESENCE OF CORONARY ANGIOPLASTY IMPLANT AND GRAFT Assessment/Plan Lasix Symbicort BID Spiriva OD Daily weight Follow I & O Supplemental O2 as needed Monitor off ABX Monitor off systemic steroids for now No smoking VTE prophylaxis Will follow Thank you. Dr Hudson
--- NOTE | 2020-01-09 16:00 | PN ---
Teaching Attending Note Name of Resident: Kartik Dowd ATTENDING PHYSICIAN STATEMENT I saw and evaluated the patient. I reviewed the resident's note and discussed the case with the resident. I agree with the resident's findings and plan as documented. SUBJECTIVE: Feeling less SOB. Reported SOB/PND/Orthopnea overnight. OBJECTIVE: Afebrile, Hemodynamically Stable. Last Vital Signs Temp Pulse Resp BP Pulse Ox 98 F 89 20 120/62 96 01/09/20 12:00 01/09/20 12:00 01/09/20 13:00 01/09/20 12:00 01/09/20 13:00 HEENT - Atramatic, Normocephalic. Heart - S1, S2, RRR Lungs - decreased air entry, few crackles bibasally Abdomen - Soft, non-tender. Bowel Sounds normal. Extremities - venous stasis skin changes, edema+, no calf tenderness. Neuro - AAO x 3. Tone/Power normal. Laboratory Results - last 24 hr 01/08/20 01/08/20 01/08/20 17:40 17:40 17:40 WBC 9.7 RBC 4.40 Hgb 13.5 Hct 40.6 D MCV 92.3 MCH 30.6 MCHC 33.1 RDW 16.6 H Plt Count 193 D MPV 7.5 Absolute Neuts (auto) 7.4 Neutrophils % 76.3 Lymphocytes % 15.9 D Monocytes % 5.5 Eosinophils % 1.6 D Basophils % 0.7 D Nucleated RBC % 0 PT with INR 13.10 H INR 1.11 H PTT (Actin FS) 30.0 Sodium 143 Potassium 4.2 Chloride 106 Carbon Dioxide 35 H Anion Gap 3 L BUN 22.9 H Creatinine 0.7 Est GFR (CKD-EPI)AfAm 98.34 Est GFR (CKD-EPI)NonAf 84.85 Random Glucose 93 Hemoglobin A1c % Calcium 8.5 Phosphorus Magnesium 1.9 Total Bilirubin 0.5 AST 33 ALT 24 Alkaline Phosphatase 54 Creatine Kinase 104 Troponin I 0.13 H B-Natriuretic Peptide 767.7 H Total Protein 5.1 L Albumin 2.8 L Triglycerides Cholesterol Total LDL Cholesterol HDL Cholesterol TSH Urine Color Urine Appearance Urine pH Ur Specific [place] Urine Protein Urine Glucose (UA) Urine Ketones Urine Blood Urine Nitrite Urine Bilirubin Urine Urobilinogen Ur Leukocyte Esterase Urine WBC (Auto) Urine RBC (Auto) Urine Casts (Auto) U Epithel Cells (Auto) Urine Bacteria (Auto) 01/08/20 01/09/20 01/09/20 20:30 01:20 06:18 WBC 8.3 RBC 4.46 Hgb 13.6 Hct 40.9 MCV 91.6 MCH 30.5 MCHC 33.3 RDW 16.7 H Plt Count 186 MPV 7.1 L Absolute Neuts (auto) 5.8 Neutrophils % 70.4 Lymphocytes % 19.4 D Monocytes % 6.4 Eosinophils % 3.2 D Basophils % 0.6 Nucleated RBC % 0 PT with INR INR PTT (Actin FS) Sodium Potassium Chloride Carbon Dioxide Anion Gap BUN Creatinine Est GFR (CKD-EPI)AfAm Est GFR (CKD-EPI)NonAf Random Glucose Hemoglobin A1c % Calcium Phosphorus Magnesium Total Bilirubin AST ALT Alkaline Phosphatase Creatine Kinase Troponin I 0.12 H B-Natriuretic Peptide Total Protein Albumin Triglycerides Cholesterol Total LDL Cholesterol HDL Cholesterol TSH Urine Color Yellow Urine Appearance Cloudy Urine pH 5.5 Ur Specific [place] 1.022 Urine Protein Trace Urine Glucose (UA) Negative Urine Ketones Negative Urine Blood 3+ H Urine Nitrite Negative Urine Bilirubin Negative Urine Urobilinogen 0.2 Ur Leukocyte Esterase 1+ H Urine WBC (Auto) 50 Urine RBC (Auto) 875 Urine Casts (Auto) 4 U Epithel Cells (Auto) 22 Urine Bacteria (Auto) 9 01/09/20 01/09/20 06:18 06:18 WBC RBC Hgb Hct MCV MCH MCHC RDW Plt Count MPV Absolute Neuts (auto) Neutrophils % Lymphocytes % Monocytes % Eosinophils % Basophils % Nucleated RBC % PT with INR INR PTT (Actin FS) Sodium 144 Potassium 3.9 Chloride 106 Carbon Dioxide 30 Anion Gap 9 BUN 21.3 H Creatinine 0.7 Est GFR (CKD-EPI)AfAm 98.34 Est GFR (CKD-EPI)NonAf 84.85 Random Glucose 75 Hemoglobin A1c % 5.8 Calcium 8.8 Phosphorus 3.2 Magnesium 1.8 Total Bilirubin 0.7 AST 33 ALT 25 Alkaline Phosphatase 58 Creatine Kinase Troponin I B-Natriuretic Peptide Total Protein 5.3 L Albumin 2.8 L Triglycerides 100 Cholesterol 147 Total LDL Cholesterol 76 HDL Cholesterol 54 TSH 4.36 H D Urine Color Urine Appearance Urine pH Ur Specific [place] Urine Protein Urine Glucose (UA) Urine Ketones Urine Blood Urine Nitrite Urine Bilirubin Urine Urobilinogen Ur Leukocyte Esterase Urine WBC (Auto) Urine RBC (Auto) Urine Casts (Auto) U Epithel Cells (Auto) Urine Bacteria (Auto) Current Medications Generic Name Dose Route Start Last Admin Trade Name Freq PRN Reason Stop Dose Admin Aspirin 81 mg 01/09/20 10:00 01/09/20 10:09 Ecotrin - PO 81 mg DAILY QUETA Administration Atorvastatin Calcium 40 mg 01/09/20 22:00 Lipitor - PO HS [facility] Budesonide/Formoterol Fumarate 2 puff 01/09/20 01:00 01/09/20 12:21 Symbicort 80/4.5mcg - IH 2 puff BID QUETA Administration Enoxaparin Sodium 40 mg 01/09/20 10:00 01/09/20 10:09 Lovenox - SQ 40 mg DAILY QUETA Administration Furosemide 80 mg 01/09/20 10:00 01/09/20 10:08 Lasix Injection - IVPUSH 80 mg DAILY QUETA Administration Levalbuterol HCl 0.31 mg 01/09/20 00:54 Xopenex IH Q8H PRN ASTHMA Multi-Ingredient Ointment 1 applic 01/09/20 10:00 01/09/20 10:09 Zinc Oxide TP 1 applic BID [facility] Administration Senna 1 tab 01/09/20 22:00 Senna - PO HS [facility] Sertraline HCl 25 mg 01/09/20 10:00 01/09/20 10:09 Zoloft - PO 25 mg DAILY QUETA Administration Tiotropium [place] 2 puff 01/09/20 15:45 Spiriva Respimat IH DAILY [facility] Home Medications Medication Instructions Recorded Acetaminophen [Tylenol Extra 1 gm PO TID PRN 12/20/19 Strength] Albuterol Sulfate [Proair Hfa] 8.5 gm IH Q4H PRN 12/20/19 Aspirin Coated [Ecotrin -] 81 mg PO DAILY 12/20/19 Atorvastatin Calcium 40 mg PO HS 12/20/19 Budesonide/Formeterol Fumarate 2 inh PO BID 12/20/19 [SYMBICORT 80/4.5mcg -] Famotidine [Pepcid] 40 mg PO DAILY 12/20/19 Furosemide [Lasix] 80 mg PO DAILY 12/20/19 Ipratropium 0.02% Nebulizer 1 neb NEB TID 12/20/19 [Atrovent 0.02% Nebulizer -] Methocarbamol [Robaxin -] 500 mg PO TID 12/20/19 Roflumilast [Daliresp] 500 mcg PO DAILY 12/20/19 Sennosides [Senna -] 1 tab PO HS 12/20/19 Sertraline HCl [Zoloft] 25 mg PO DAILY 12/20/19 Tiotropium [place] [Spiriva] 1 puff IH DAILY 12/20/19 clonazePAM [Klonopin -] 0.5 mg PO TID PRN 12/20/19 Alprazolam 0.25 mg PO DAILY PRN 12/23/19 ASSESSMENT AND PLAN: 89 year old male with history of CRF sec to COPD on Home O2, HTN, HLD, CAD s/p Stent (2017), s/p rib fracture (1 month ago), presents with increasing SOB/Orthopnea/PND/weakness, found to have moderate bilateral infusions. CT Chest - moderate bilateral effusions with compressive atelectasis, mild pericardial effusion, bilateral pulmonary nodules, Emphysema, Bilateral non- obstructing calculi enlarged mediastinal/axillary LNs. 1. Acute on Chronic Diastolic CHF/Moderate Echo 12/11 as per Cardiology. BNP 767 IV Lasix diuresis - 80mg IVP daily. I/Os, Daily weight Cardiology following. 2. Elevated Troponin ?sec to demand ischemia due to acute CHF decompensation. Hx CAD s/p PCI/Stent 2016 For transfer to [facility] for NIYA/Cath on Saturday as per Cardio. Continue Aspirin/Statin. 3. CRF sec to COPD - no evidence of exacerbation Continue Spiriva, Symbicort, Albuterol PRN, Daliresp 4. Stage 2 Sacral Ulcer - POA Zinc Oxide Regular position changes 5. Anxiety - Continue Sertraline. DVT Px - Lovenox SQ
[2020-01-09] MEDS ORDERED: PT OWN MED DRAWER 7, Y5N ONE (16:10)
--- NOTE | 2020-01-09 18:30 | PN ---
Physical Exam: SUBJECTIVE: Patient seen and examined. Sob improved, pt still bit uncomfortable. No acute events overnight. OBJECTIVE: Vital Signs Period Temp Pulse Resp BP Sys/[place] Pulse Ox Last 24 Hr 97.6 F-98.1 F 70-98 20-24 103-123/55-64 95-100 GENERAL: The patient is awake, alert, and fully oriented, in no acute distress. Bit anxious EYES: PERRL, extraocular movements intact, No ptosis. ENT: moist mucous membranes. LUNGS: decreased air entry, few crackles bibasally HEART: Regular rate and rhythm, S1, S2 without murmur, rub or gallop. ABDOMEN: Soft, nontender, nondistended, normoactive bowel sounds, no guarding EXTREMITIES: venous stasis skin changes, edema+, no calf tenderness. PSYCH: Normal mood, normal affect. SKIN: Warm, dry, normal turgor, no rashes or lesions noted Laboratory Results - last 24 hr 01/08/20 01/08/20 01/08/20 17:40 17:40 17:40 WBC 9.7 RBC 4.40 Hgb 13.5 Hct 40.6 D MCV 92.3 MCH 30.6 MCHC 33.1 RDW 16.6 H Plt Count 193 D MPV 7.5 Absolute Neuts (auto) 7.4 Neutrophils % 76.3 Lymphocytes % 15.9 D Monocytes % 5.5 Eosinophils % 1.6 D Basophils % 0.7 D Nucleated RBC % 0 PT with INR 13.10 H INR 1.11 H PTT (Actin FS) 30.0 Sodium 143 Potassium 4.2 Chloride 106 Carbon Dioxide 35 H Anion Gap 3 L BUN 22.9 H Creatinine 0.7 Est GFR (CKD-EPI)AfAm 98.34 Est GFR (CKD-EPI)NonAf 84.85 Random Glucose 93 Hemoglobin A1c % Calcium 8.5 Phosphorus Magnesium 1.9 Total Bilirubin 0.5 AST 33 ALT 24 Alkaline Phosphatase 54 Creatine Kinase 104 Troponin I 0.13 H B-Natriuretic Peptide 767.7 H Total Protein 5.1 L Albumin 2.8 L Triglycerides Cholesterol Total LDL Cholesterol HDL Cholesterol TSH Urine Color Urine Appearance Urine pH Ur Specific [place] Urine Protein Urine Glucose (UA) Urine Ketones Urine Blood Urine Nitrite Urine Bilirubin Urine Urobilinogen Ur Leukocyte Esterase Urine WBC (Auto) Urine RBC (Auto) Urine Casts (Auto) U Epithel Cells (Auto) Urine Bacteria (Auto) 01/08/20 01/09/20 01/09/20 20:30 01:20 06:18 WBC 8.3 RBC 4.46 Hgb 13.6 Hct 40.9 MCV 91.6 MCH 30.5 MCHC 33.3 RDW 16.7 H Plt Count 186 MPV 7.1 L Absolute Neuts (auto) 5.8 Neutrophils % 70.4 Lymphocytes % 19.4 D Monocytes % 6.4 Eosinophils % 3.2 D Basophils % 0.6 Nucleated RBC % 0 PT with INR INR PTT (Actin FS) Sodium Potassium Chloride Carbon Dioxide Anion Gap BUN Creatinine Est GFR (CKD-EPI)AfAm Est GFR (CKD-EPI)NonAf Random Glucose Hemoglobin A1c % Calcium Phosphorus Magnesium Total Bilirubin AST ALT Alkaline Phosphatase Creatine Kinase Troponin I 0.12 H B-Natriuretic Peptide Total Protein Albumin Triglycerides Cholesterol Total LDL Cholesterol HDL Cholesterol TSH Urine Color Yellow Urine Appearance Cloudy Urine pH 5.5 Ur Specific [place] 1.022 Urine Protein Trace Urine Glucose (UA) Negative Urine Ketones Negative Urine Blood 3+ H Urine Nitrite Negative Urine Bilirubin Negative Urine Urobilinogen 0.2 Ur Leukocyte Esterase 1+ H Urine WBC (Auto) 50 Urine RBC (Auto) 875 Urine Casts (Auto) 4 U Epithel Cells (Auto) 22 Urine Bacteria (Auto) 9 01/09/20 01/09/20 06:18 06:18 WBC RBC Hgb Hct MCV MCH MCHC RDW Plt Count MPV Absolute Neuts (auto) Neutrophils % Lymphocytes % Monocytes % Eosinophils % Basophils % Nucleated RBC % PT with INR INR PTT (Actin FS) Sodium 144 Potassium 3.9 Chloride 106 Carbon Dioxide 30 Anion Gap 9 BUN 21.3 H Creatinine 0.7 Est GFR (CKD-EPI)AfAm 98.34 Est GFR (CKD-EPI)NonAf 84.85 Random Glucose 75 Hemoglobin A1c % 5.8 Calcium 8.8 Phosphorus 3.2 Magnesium 1.8 Total Bilirubin 0.7 AST 33 ALT 25 Alkaline Phosphatase 58 Creatine Kinase Troponin I B-Natriuretic Peptide Total Protein 5.3 L Albumin 2.8 L Triglycerides 100 Cholesterol 147 Total LDL Cholesterol 76 HDL Cholesterol 54 TSH 4.36 H D Urine Color Urine Appearance Urine pH Ur Specific [place] Urine Protein Urine Glucose (UA) Urine Ketones Urine Blood Urine Nitrite Urine Bilirubin Urine Urobilinogen Ur Leukocyte Esterase Urine WBC (Auto) Urine RBC (Auto) Urine Casts (Auto) U Epithel Cells (Auto) Urine Bacteria (Auto) Active Medications Generic Name Dose Route Start Last Admin Trade Name Freq PRN Reason Stop Dose Admin Aspirin 81 mg 01/09/20 10:00 01/09/20 10:09 Ecotrin - PO 81 mg DAILY QUETA Administration Atorvastatin Calcium 40 mg 01/09/20 22:00 Lipitor - PO HS QUETA Budesonide/Formoterol Fumarate 2 puff 01/09/20 01:00 01/09/20 12:21 Symbicort 80/4.5mcg - IH 2 puff BID QUETA Administration Enoxaparin Sodium 40 mg 01/09/20 10:00 01/09/20 10:09 Lovenox - SQ 40 mg DAILY QUETA Administration Furosemide 80 mg 01/09/20 10:00 01/09/20 10:08 Lasix Injection - IVPUSH 80 mg DAILY QUETA Administration Levalbuterol HCl 0.31 mg 01/09/20 00:54 Xopenex IH Q8H PRN ASTHMA Multi-Ingredient Ointment 1 applic 01/09/20 10:00 01/09/20 10:09 Zinc Oxide TP 1 applic BID QUETA Administration Senna 1 tab 01/09/20 22:00 Senna - PO HS QUETA Sertraline HCl 25 mg 01/09/20 10:00 01/09/20 10:09 Zoloft - PO 25 mg DAILY QUETA Administration Tiotropium [place] 2 puff 01/09/20 15:45 Spiriva Respimat IH DAILY QUETA ASSESSMENT/PLAN: 89 y/o M, pmh of CRF 2/2 COPD on Home O2, HTN, HLD, CAD s/p Stent (2017), s/p rib fracture (1 month ago), presents with increasing SOB w/ Orthopnea+PND+weakness, found to have moderate bilateral infusions on imaging admitted for Acute on chronic d-CHF #Acute on Chronic D-CHF w/ Moderate CT Chest - moderate bilateral effusions with compressive atelectasis, mild pericardial effusion, bilateral pulmonary nodules, Emphysema, Bilateral non- obstructing calculi enlarged mediastinal/axillary LNs. Echo 12/11 as per Cardiology- Left ventricular systolic function is hyperdynamic with an estimated EF of >70%. Cardio: TDS imaging showing restricted mobility and moderate thickening BNP 767 IV Lasix diuresis - 80mg IVP daily. I/Os, Daily weight As per cardio: plans for transfer to [facility] on saturday #Elevated Troponin likely 2/2 to demand ischemia due to acute CHF decompensation. Hx CAD s/p PCI/Stent 2016 Continue Aspirin/Statin. #CRF 2/2 COPD no evidence of exacerbation Continue Spiriva, Symbicort, Albuterol PRN, Daliresp #Stage 2 Sacral Ulcer Zinc Oxide Regular position changes #Anxiety Continue Sertraline. DVT Px - Lovenox SQ Dispo: plan for transfer saturday, cont diuretics Echo 08/2019: 1. This was a technically difficult study with suboptimal views--Definity contrast agent used. 2. The left ventricular size is normal. 3. Left ventricular systolic function is hyperdynamic with an estimated EF of >70%. 4. LA pressure is uncertain. 5. The RV was not well visualized; probably normal in size and function. 6. Left atrium is probably normal size by volume. 7. The aortic valve was not well visualized; leaflets are at least moderately thickened where visualized, with restricted mobility--cannot exclude severe restriction of mobility on the available images. 8. Moderate to severe aortic stenosis with peak/mean pressure gradient of 30 / 18 mmHg, and aortic valve area by continuity equation of 0.9 cm2. AV area is of uncertain accuracy, due to technical limitations of LVOT doppler signals (despite multiple recording attempts performed). SV index = 29 cc/m2. These results are potentially consistent with paradoxical low output, low gradient severe aortic stenosis. 9. There is at least mild pulmonary hypertension (TR doppler signal cut off). 10. The right ventricular systolic pressure is at least 42 mmHg (assuming RA pressure of 3). Visit type - Emergency Visit Emergency Visit: Yes ED Registration Date: 01/08/20 Care time: The patient presented to the Emergency Department on the above date and was hospitalized for further evaluation of their emergent condition. - New Patient This patient is new to me today: Yes Date on this admission: 01/09/20 - Critical Care Critical Care patient: No - Discharge Referral Referred to [facility] Med [facility] No ATTENDING PHYSICIAN STATEMENT I saw and evaluated the patient. I reviewed the resident's note and discussed the case with the resident. I agree with the resident's findings and plan as documented. SUBJECTIVE: OBJECTIVE: ASSESSMENT AND PLAN:
[2020-01-09] MEDS: TIOTROPIUM BROMIDE 2.5 MCG (SPIRIVA) RESPIMAT INHALER IH SCH (18:40)
[2020-01-09] MEDS: ATORVASTATIN CA 40 MG TABLET (FP) PO SCH (21:44)
[2020-01-09] MEDS ORDERED: SENNOSIDES 8.6MG TABLET (FP) PO SCH (22:00)
[2020-01-10 07:32] LABS: HEMATOCRIT 38.3 % (35.4-49); HEMOGLOBIN 12.7 GM/dL (11.7-16.9); MCH 30.4 pg (25.7-33.7); MEAN CELL VOLUME 92.1 fl (80-96); MEAN PLT VOLUME 7.5 fl (7.5-11.1); PLATELET COUNT 193 K/MM3 (134-434); RBC 4.16 M/mm3 (4.00-5.60); RDW 16.5 % (11.9-15.9)
[2020-01-10 08:02] LABS: CALCIUM 8.7 mg/dL (8.5-10.1); CREATININE 0.8 mg/dL (0.55-1.3); MAGNESIUM 1.8 mg/dL (1.8-2.4); PHOSPHOROUS 2.9 mg/dL (2.5-4.9); POTASSIUM 3.7 mmol/L (3.5-5.1)
[2020-01-10] MEDS ORDERED: PT OWN MED DRAWER 7, Y5N ONE (08:32)
--- NOTE | 2020-01-10 08:58 | PN ---
Progress Note, Physician Chief Complaint: sob History of Present Illness: still some sob, coughed at times overnight. no PND. urinated a lot with lasix. no leg swelling. no cp - Current Medication List Current Medications: Active Medications Aspirin (Ecotrin -) 81 mg PO DAILY [facility] Last Admin: 01/09/20 10:09 Dose: 81 mg Documented by: Atorvastatin Calcium (Lipitor -) 40 mg PO [facility] Last Admin: 01/09/20 21:44 Dose: 40 mg Documented by: Budesonide/Formoterol Fumarate (Symbicort 80/4.5mcg -) 2 puff IH BID [facility] Last Admin: 01/09/20 21:44 Dose: 2 puff Documented by: Enoxaparin Sodium (Lovenox -) 40 mg SQ DAILY [facility] Last Admin: 01/09/20 10:09 Dose: 40 mg Documented by: Furosemide (Lasix Injection -) 80 mg IVPUSH DAILY [facility] Last Admin: 01/09/20 10:08 Dose: 80 mg Documented by: Levalbuterol HCl (Xopenex) 0.31 mg IH Q8H PRN PRN Reason: ASTHMA Multi-Ingredient Ointment (Zinc Oxide) 1 applic TP BID [facility] Last Admin: 01/09/20 22:39 Dose: 1 applic Documented by: Senna (Senna -) 1 tab PO [facility] Last Admin: 01/09/20 21:44 Dose: 1 tab Documented by: Sertraline HCl (Zoloft -) 25 mg PO DAILY [facility] Last Admin: 01/09/20 10:09 Dose: 25 mg Documented by: Tiotropium [place] (Spiriva Respimat) 2 puff IH DAILY [facility] Last Admin: 01/09/20 18:40 Dose: 2 puff Documented by: - Objective Vital Signs: Vital Signs Temperature 97.8 F 01/10/20 07:37 Pulse Rate 66 01/10/20 07:37 Respiratory Rate 18 01/10/20 07:37 Blood Pressure 107/59 L 01/10/20 07:37 O2 Sat by Pulse Oximetry (%) 66 L 01/10/20 07:37 Constitutional: Yes: No Distress, Calm Eyes: No: Sclera Icterus HENT: No: Nasal Congestion Cardiovascular: Yes: Regular Rate and Rhythm (decr sounds (copd)), S1, S2, Other (PMI non diplaced). No: JVD, Gallop, Murmur Respiratory: Yes: CTA Bilaterally (decr sounds (copd)). No: Accessory Muscle Use Gastrointestinal: Yes: Normal Bowel Sounds, Soft. No: Tenderness Musculoskeletal: Yes: Other (No kyphosis) Extremities: No: Cyanosis Edema: No Integumentary: No: Jaundice Neurological: Yes: Alert, Oriented (x3) Psychiatric: No: Agitated Labs: CBC, BMP 01/10/20 06:20 01/10/20 06:20 INR, PTT INR 1.11 (0.83-1.09) H 01/08/20 17:40 Assessment/Plan Echo 08/2019: 1. This was a technically difficult study with suboptimal views--Definity c ontrast agent used. 2. The left ventricular size is normal. 3. Left ventricular systolic function is hyperdynamic with an estimated EF of >70%. 4. LA pressure is uncertain. 5. The RV was not well visualized; probably normal in size and function. 6. Left atrium is probably normal size by volume. 7. The aortic valve was not well visualized; leaflets are at least moderately thickened where visualized, with restricted mobility--cannot exclude severe restriction of mobility on the available images. 8. Moderate to severe aortic stenosis with peak/mean pressure gradient of 30 / 18 mmHg, and aortic valve area by continuity equation of 0.9 cm2. AV area is of uncertain accuracy, due to technical limitations of LVOT doppler signals (despite multiple recording attempts performed). SV index = 29 cc/m2. These results are potentially consistent with paradoxical low output, low gradient severe aortic stenosis. 9. There is at least mild pulmonary hypertension (TR doppler signal cut off). 10. The right ventricular systolic pressure is at least 42 mmHg (assuming RA pressure of 3). CT chest: mod pleural effusions increased vs 12/11, with compressive ATX. new bilateral flank subcutaneous edema. severe emphys changes. EKG: NSR, low voltage, ? old ASMI, NSTWAs--no change tele: NSR, extensive artifact Acute on chronic diastolic congestive heart failure, WHO 2 +/- 3 PH: -S/P ACUTE HFPEF 06/2019--OF NOTE NO OBVIOUS VOLUME ON EXAM THEN (LE EDEMA SEC TO VENOUS INSUFFICIENCY, WITHOUT JVD OR CONGESTION ON CHEST CT), BUT SOB MUCH IMPROVED AFTER SINGLE DOSE IV LASIX IN HOSPITAL-->BP DOWN TO 90S. -CLINICAL ASSESSMENT IS VERY DIFFICULT DUE TO SIGNIF ANTICIPATORY ANXIETY NOW ABOUT SOB WITH ACTIVITIES, AND VERY TDS HISTORY/PHYS EXAM AND ECHO DUE TO SEVERE COPD AND VENOUS INS. -EDEMA AND WT IMPROVED WITH INCR LASIX 40 TO 80 IN OFFICE SEVERAL MONTHS AGO (RUNNING 155-158 LBS). HOWEVER SOB PERSISTED. CHANGED TO 60 QD (09/10) -MILD PULM HTN ON PRIOR RHC WITH INCR TO >60 ON STRESS ECHO -PRESENTLY WITH MODERATE (ENLARGING) PLEURAL EFFUSIONS, BNP SLIGHTLY HIGHER THAN PRIOR, EPISODES OF PND. WT DOWN VS PRIOR (? LOSS OF MUSCLE MASS GIVEN FRAILTY OF LATE). -RECEIVED TWO DOSES OF LASIX 80 IV QD. SOFT BP'S, WT UNCHANGED, LABS STABLE-- RESUME 80 PO UNTIL RHC COMPLETED. -DISC'D WITH PT AND THAT WE HAVE NOT DEFINITIVELY EXCLUDED OBSTRUCTIVE OR CAD CAUSE OF HIS CLINICAL WORSENING THE PAST 6-9 MONTHS, NOR HAVE WE DEFINED EXTENT OF HFPEF VS COPD SX'S. REC WE DO LEFT/RIGHT HEART CATH AND ECHO AT [facility] PRIOR TO DISCHARGE, AND CONSIDER CARDIOMEMS IMPLANT IF FILLING PRESSURES ARE ELEVATED. WHILE THEY DO NOT WANT HIM TO GO THROUGH MORE INVASIVE PROCEDURES, THEY UNDERSTAND THAT HE IS LIKELY TO PROGRESSIVELY DETERIORATE WITH THE STATUS QUO AND AGREE TO WORKUP TO RULE OUT REVERSIBLE ETIOLOGY. -CANNOT TRAVEL TO [facility], REQUEST TRANSFER TO [facility] FOR WORKUP, WILL ARRANGE ON SATURDAY Chronic ischemic heart disease: -06/09 NSTEMI, WITH MARKED PROGRESSION OF OM1 DISEASE--XIENCE MEDARDO. NO RESIDUAL OBSTRUCTIVE CAD PRESENT. -CONTINUE ASA, STATIN. METOPR HELD (FREQUENT COPD EXACERBATIONS, NYHA III SX'S)--NO ANGINA. -SIGNIF DECLINE IN E.T. WITH RECURRENT HFPEF IN PAST SEVERAL MONTHS--PHARM MPI PLANNED TO CONFIRM NO NEW ISCHEMIC SUBSTRATE, NOT COMPLETED SECONDARY TO COVID -NO SIGNS OF ACUTE ISCHEMIA HERE -FOR CATH Aortic stenosis: -MODERATE ON ECHO 11/2019 (GOOD DOPPLER ALIGNMENTS). -VERY SOFT HEART SOUNDS SEC TO COPD--PROHIBITIVELY TDS EXAM. NOW WITH NEW HFPEF SYNDROME, DECLINING CLINICAL STATUS. TDS IMAGES OF VALVE ON ECHO TODAY, WITH MODERATE THICKENING AND RESTRICTED MOBILITY WHERE VISUALIZED. GRADIENTS MODERATE, SAMANTHA SEVERE (SV INDEX LOW, HOWEVER LVOT DOPPLER SIGNAL SUSPECT). -PLAN WAS FOR REPEAT ECHO +/- NIYA AT [facility]--DEFERRED DUE TO COVID EPIDEMIC AND PT HI RISK FOR INFECTION -FOR CATH AND ECHO AT [facility] COPD: -per pulmonary/hospitalist pale/diaphoretic with BM: -pt with known vasovagal presyncope in the past, current episode highly likely same process -no signs of ACS as above
[2020-01-10] MEDS: ENOXAPARIN NA (PORCINE) 40 MG/0.4 ML DISP.SYRIN SQ SCH (09:15)
[2020-01-10] MEDS: SERTRALINE HCL 25 MG TABLET (FP) PO SCH (09:15)
[2020-01-10] MEDS: BUDESONIDE/FORMETEROL FUMARATE 80/4.5 mcg INHALER IH SCH ×2 (09:16→21:59)
[2020-01-10] MEDS: TIOTROPIUM BROMIDE 2.5 MCG (SPIRIVA) RESPIMAT INHALER IH SCH (09:16)
[2020-01-10] MEDS: ZINC OXIDE 20% TOPICAL OINTMENT 30 GM TUBE TP SCH ×2 (09:16→21:54)
[2020-01-10] MEDS: ASPIRIN COATED 81 MG TABLET.EC PO SCH (09:17)
[2020-01-10] MEDS: FUROSEMIDE 40 MG TABLET (FP) PO SCH (09:18)
--- NOTE | 2020-01-10 13:55 | PN ---
Progress Note (short form) - Note Progress Note: SUBJECTIVE: Feeling less SOB. No further PND/Orthopnea overnight. OBJECTIVE: Afebrile, Hemodynamically Stable. Last Vital Signs Temp Pulse Resp BP Pulse Ox 97.8 F 66 18 107/59 L 97L on 2.5L 01/10/20 07:37 01/10/20 07:37 01/10/20 07:37 01/10/20 07:37 01/10/20 07:37 Heart - S1, S2, RRR Lungs - decreased air entry, few crackles bibasally Abdomen - Soft, non-tender. Bowel Sounds normal. Extremities - severe venous stasis skin changes, edema+, no calf tenderness. Neuro - AAO x 3. Tone/Power normal. Laboratory Results - last 24 hr 01/10/20 01/10/20 06:20 06:20 WBC 9.0 RBC 4.16 Hgb 12.7 Hct 38.3 MCV 92.1 MCH 30.4 MCHC 33.0 RDW 16.5 H Plt Count 193 MPV 7.5 Sodium 144 Potassium 3.7 Chloride 105 Carbon Dioxide 32 Anion Gap 7 L BUN 27.0 H Creatinine 0.8 Est GFR (CKD-EPI)AfAm 93.09 Est GFR (CKD-EPI)NonAf 80.32 Random Glucose 79 Calcium 8.7 Phosphorus 2.9 Magnesium 1.8 Free T4 1.18 H Current Medications Generic Name Dose Route Start Last Admin Trade Name Freq PRN Reason Stop Dose Admin Aspirin 81 mg 01/09/20 10:00 01/10/20 09:17 Ecotrin - PO 81 mg DAILY QUETA Administration Atorvastatin Calcium 40 mg 01/09/20 22:00 01/09/20 21:44 Lipitor - PO 40 mg HS QUETA Administration Budesonide/Formoterol Fumarate 2 puff 01/09/20 01:00 01/10/20 09:16 Symbicort 80/4.5mcg - IH 2 puff BID QUETA Administration Enoxaparin Sodium 40 mg 01/09/20 10:00 01/10/20 09:15 Lovenox - SQ 40 mg DAILY QUETA Administration Furosemide 80 mg 01/10/20 10:00 01/10/20 09:18 Lasix - PO 80 mg DAILY QUETA Administration Levalbuterol HCl 0.31 mg 01/09/20 00:54 Xopenex IH Q8H PRN ASTHMA Multi-Ingredient Ointment 1 applic 01/09/20 10:00 01/10/20 09:16 Zinc Oxide TP 1 applic BID QUETA Administration Senna 1 tab 01/09/20 22:00 01/09/20 21:44 Senna - PO 1 tab HS QUETA Administration Sertraline HCl 25 mg 01/09/20 10:00 01/10/20 09:15 Zoloft - PO 25 mg DAILY QUETA Administration Tiotropium [place] 2 puff 01/09/20 15:45 01/10/20 09:16 Spiriva Respimat IH 2 puff DAILY QUETA Administration Home Medications Medication Instructions Recorded Acetaminophen [Tylenol Extra 1 gm PO TID PRN 12/20/19 Strength] Albuterol Sulfate [Proair Hfa] 8.5 gm IH Q4H PRN 12/20/19 Aspirin Coated [Ecotrin -] 81 mg PO DAILY 12/20/19 Atorvastatin Calcium 40 mg PO HS 12/20/19 Budesonide/Formeterol Fumarate 2 inh PO BID 12/20/19 [SYMBICORT 80/4.5mcg -] Famotidine [Pepcid] 40 mg PO DAILY 12/20/19 Furosemide [Lasix] 80 mg PO DAILY 12/20/19 Ipratropium 0.02% Nebulizer 1 neb NEB TID 12/20/19 [Atrovent 0.02% Nebulizer -] Methocarbamol [Robaxin -] 500 mg PO TID 12/20/19 Roflumilast [Daliresp] 500 mcg PO DAILY 12/20/19 Sennosides [Senna -] 1 tab PO HS 12/20/19 Sertraline HCl [Zoloft] 25 mg PO DAILY 12/20/19 Tiotropium [place] [Spiriva] 1 puff IH DAILY 12/20/19 clonazePAM [Klonopin -] 0.5 mg PO TID PRN 12/20/19 Alprazolam 0.25 mg PO DAILY PRN 12/23/19 Amoxicillin/Potassium Clav 1 each PO BID #6 tablet 12/24/19 [Augmentin 875-125 Tablet] Azithromycin 250 mg PO DAILY #1 tablet 12/24/19 Prednisone 40 mg PO DAILY #1 tablet 12/24/19 ASSESSMENT AND PLAN: 89 year old male with history of CRF sec to COPD on Home O2, HTN, HLD, CAD s/p Stent (2017), s/p rib fracture (1 month ago), presents with increasing SOB/Orthopnea/PND/weakness, found to have moderate bilateral infusions. CT Chest - moderate bilateral effusions with compressive atelectasis, mild pericardial effusion, bilateral pulmonary nodules, Emphysema, Bilateral non- obstructing calculi enlarged mediastinal/axillary LNs. 1. Acute on Chronic Diastolic CHF/Moderate Echo 12/11 as per Cardiology. BNP 767 IV Lasix diuresis (80mg IVP daily) transitioned to PO. I/Os, Daily weight Cardiology following - for investigative work-up including cath to exclude ischemic cause for patient's recent decline. 2. Elevated Troponin ?sec to demand ischemia due to acute CHF decompensation. Hx CAD s/p PCI/Stent 2016 For transfer to [facility] for NIYA/Cath on Saturday as per Cardio. Continue Aspirin/Statin. 3. CRF sec to COPD - no evidence of exacerbation Continue Spiriva, Symbicort, Albuterol PRN, Daliresp, supplemental O2. 4. Stage 2 Sacral Ulcer - POA Zinc Oxide Regular position changes 5. Anxiety - Continue Sertraline. DVT Px - Lovenox SQ Visit type - Emergency Visit Emergency Visit: Yes ED Registration Date: 01/08/20 Care time: The patient presented to the Emergency Department on the above date and was hospitalized for further evaluation of their emergent condition. - New Patient This patient is new to me today: No - Critical Care Critical Care patient: No - Discharge Referral Referred to [facility] Med P.C.: No
--- NOTE | 2020-01-10 14:19 | PN ---
Progress Note (short form) - Note Progress Note: Breathing feels a little better today. Still with cough and SHANNON. No CP. No acute events overnight. Intake & Output 01/07/20 01/08/20 01/09/20 01/10/20 23:59 23:59 23:59 23:59 Intake Total 10 10 Output Total 1800 Balance -1790 10 Weight 140 lb 140 lb 12.8 oz 140 lb Last Vital Signs Temp Pulse Resp BP Pulse Ox 97.8 F 66 18 107/59 L 66 L 01/10/20 07:37 01/10/20 07:37 01/10/20 07:37 01/10/20 07:37 01/10/20 07:37 Active Medications Aspirin (Ecotrin -) 81 mg PO DAILY [facility] Last Admin: 01/10/20 09:17 Dose: 81 mg Documented by: Atorvastatin Calcium (Lipitor -) 40 mg PO [facility] Last Admin: 01/09/20 21:44 Dose: 40 mg Documented by: Budesonide/Formoterol Fumarate (Symbicort 80/4.5mcg -) 2 puff IH BID [facility] Last Admin: 01/10/20 09:16 Dose: 2 puff Documented by: Enoxaparin Sodium (Lovenox -) 40 mg SQ DAILY [facility] Last Admin: 01/10/20 09:15 Dose: 40 mg Documented by: Furosemide (Lasix -) 80 mg PO DAILY [facility] Last Admin: 01/10/20 09:18 Dose: 80 mg Documented by: Levalbuterol HCl (Xopenex) 0.31 mg IH Q8H PRN PRN Reason: ASTHMA Multi-Ingredient Ointment (Zinc Oxide) 1 applic TP BID [facility] Last Admin: 01/10/20 09:16 Dose: 1 applic Documented by: Senna (Senna -) 1 tab PO [facility] Last Admin: 01/09/20 21:44 Dose: 1 tab Documented by: Sertraline HCl (Zoloft -) 25 mg PO DAILY [facility] Last Admin: 01/10/20 09:15 Dose: 25 mg Documented by: Tiotropium [place] (Spiriva Respimat) 2 puff IH DAILY [facility] Last Admin: 01/10/20 09:16 Dose: 2 puff Documented by: Constitutional: Yes: Mildly tachypneic at rest, Thin Eyes: Yes: Conjunctiva Clear, EOM Intact HENT: Yes: Atraumatic, Normocephalic Neck: Yes: Supple, Trachea Midline Cardiovascular: Yes: Regular Rate and Rhythm Respiratory: Yes: Cough, Diminished, On Nasal O2, Rales, Rhonchi, SOB, SOB on Exertion, Tachypnea. No: Accessory Muscle Use, Stridor, Wheezes ...Inspection: Yes: WNL ...Clubbing: No Gastrointestinal: Yes: Normal Bowel Sounds, Soft Renal/: Yes: WNL Musculoskeletal: Yes: WNL Extremities: Yes: WNL Edema: No Peripheral Pulses WNL: Yes Integumentary: Yes: WNL Neurological: Yes: WNL, Alert, Oriented ...Motor Strength: WNL Psychiatric: Yes: WNL, Alert, Oriented Labs: Laboratory Results - last 24 hr 01/10/20 01/10/20 06:20 06:20 WBC 9.0 RBC 4.16 Hgb 12.7 Hct 38.3 MCV 92.1 MCH 30.4 MCHC 33.0 RDW 16.5 H Plt Count 193 MPV 7.5 Sodium 144 Potassium 3.7 Chloride 105 Carbon Dioxide 32 Anion Gap 7 L BUN 27.0 H Creatinine 0.8 Est GFR (CKD-EPI)AfAm 93.09 Est GFR (CKD-EPI)NonAf 80.32 Random Glucose 79 Calcium 8.7 Phosphorus 2.9 Magnesium 1.8 Free T4 1.18 H Imaging - Results Chest X-ray: Report Reviewed, Image Reviewed Cat Scan: Report Reviewed, Image Reviewed Problem List - Problems (1) Pleural effusion due to CHF (congestive heart failure) Code(s): I50.9 - HEART FAILURE, UNSPECIFIED (2) Fluid overload Code(s): E87.70 - FLUID OVERLOAD, UNSPECIFIED (3) Shortness of breath Code(s): R06.02 - SHORTNESS OF BREATH (4) COPD (chronic obstructive pulmonary disease) Code(s): J44.9 - CHRONIC OBSTRUCTIVE PULMONARY DISEASE, UNSPECIFIED Qualifiers: COPD type: COPD with acute exacerbation Qualified Code(s): J44.1 - Chronic obstructive pulmonary disease with (acute) exacerbation (5) Chronic venous insufficiency of lower extremity Code(s): I87.2 - VENOUS INSUFFICIENCY (CHRONIC) (PERIPHERAL) (6) HLD (hyperlipidemia) Code(s): E78.5 - HYPERLIPIDEMIA, UNSPECIFIED (7) Hypertension Code(s): I10 - ESSENTIAL (PRIMARY) HYPERTENSION Qualifiers: Hypertension type: essential hypertension Qualified Code(s): I10 - Essential (primary) hypertension (8) Iron deficiency anemia Code(s): D50.9 - IRON DEFICIENCY ANEMIA, UNSPECIFIED (9) Lung nodule Code(s): R91.1 - SOLITARY PULMONARY NODULE (10) Presence of stent in coronary artery in patient with coronary artery disease Code(s): I25.10 - ATHSCL HEART DISEASE OF [place] CORONARY ARTERY W/O ANG PCTRS; Z95.5 - PRESENCE OF CORONARY ANGIOPLASTY IMPLANT AND GRAFT Assessment/Plan Lasix Symbicort BID Spiriva OD Daily weight Follow I & O Supplemental O2 as needed Monitor off ABX Add PO Prednisone OD No smoking VTE prophylaxis Dr Hudson Problem List - Problems (1) Pleural effusion due to CHF (congestive heart failure) Code(s): I50.9 - HEART FAILURE, UNSPECIFIED (2) Fluid overload Code(s): E87.70 - FLUID OVERLOAD, UNSPECIFIED (3) Shortness of breath Code(s): R06.02 - SHORTNESS OF BREATH (4) COPD (chronic obstructive pulmonary disease) Code(s): J44.9 - CHRONIC OBSTRUCTIVE PULMONARY DISEASE, UNSPECIFIED Qualifiers: COPD type: COPD with acute exacerbation Qualified Code(s): J44.1 - Chronic obstructive pulmonary disease with (acute) exacerbation (5) Chronic venous insufficiency of lower extremity Code(s): I87.2 - VENOUS INSUFFICIENCY (CHRONIC) (PERIPHERAL) (6) HLD (hyperlipidemia) Code(s): E78.5 - HYPERLIPIDEMIA, UNSPECIFIED (7) Hypertension Code(s): I10 - ESSENTIAL (PRIMARY) HYPERTENSION Qualifiers: Hypertension type: essential hypertension Qualified Code(s): I10 - Essential (primary) hypertension (8) Iron deficiency anemia Code(s): D50.9 - IRON DEFICIENCY ANEMIA, UNSPECIFIED (9) Lung nodule Code(s): R91.1 - SOLITARY PULMONARY NODULE (10) Presence of stent in coronary artery in patient with coronary artery disease Code(s): I25.10 - ATHSCL HEART DISEASE OF [place] CORONARY ARTERY W/O ANG PCTRS; Z95.5 - PRESENCE OF CORONARY ANGIOPLASTY IMPLANT AND GRAFT
[2020-01-10] MEDS: predniSONE 20 MG TABLET (UD) PO SCH (15:03)
[2020-01-10] MEDS ORDERED: SENNOSIDES 8.6MG TABLET (FP) PO SCH (16:50)
[2020-01-10] MEDS ORDERED: DOCUSATE SODIUM 100 MG CAPSULE (FP) PO PRN (16:51)
[2020-01-10] MEDS ORDERED: POLYETHYLENE GLYCOL 3350 119 GM BTL PO PRN (16:51)
[2020-01-10] MEDS: ATORVASTATIN CA 40 MG TABLET (FP) PO SCH (21:54)
[2020-01-10] MEDS ORDERED: MELATONIN 5 MG TABLETS PO ONE (22:31)
[2020-01-10] MEDS ORDERED: clonazePAM 0.5 MG TABLET PO ONE (22:54)
[2020-01-11] MEDS: TIOTROPIUM BROMIDE 2.5 MCG (SPIRIVA) RESPIMAT INHALER IH SCH (10:00)
[2020-01-11] MEDS: BUDESONIDE/FORMETEROL FUMARATE 80/4.5 mcg INHALER IH SCH (10:00)
[2020-01-11] MEDS ORDERED: PT OWN MED DRAWER 7, Y5N ONE (11:08)
--- NOTE | 2020-01-11 11:44 | ECHO ---
Name: SERAFIN MUHAMMAD Exam:Adult Echocardiogram Study Date: 01/11/2020 10:22 AM Age: 89 yrs Reason For Study: Abnormal Ekg Height: 68 in Weight: 140 lb BSA: 1.8 m2 MMode/2D Measurements & Calculations RVDd: 4.0 cm Ao root diam: 3.4 cm IVSd: 1.1 cm LA dimension: 3.6 cm LVIDd: 3.3 cm ACS: 0.85 cm LVIDs: 2.2 cm LVPWd: 1.1 cm LVPWs: 1.2 cm EDV(Zaina): 44.0 ml ESV(Zaina): 16.9 ml LVOT diam: 2.0 cm TAPSE: 2.2 cm RV S Harshal: 17.8 cm/sec Doppler Measurements & Calculations MV E max harshal: 66.6 cm/sec MVA(VTI): 1.9 cm2 MV A max harshal: 86.9 cm/sec MV V2 max: 111.3 cm/sec MV E/A: 0.77 MV max P.0 mmHg MV dec time: 0.31 sec MV V2 mean: 65.5 cm/sec MV mean P.9 mmHg MV V2 VTI: 31.4 cm Ao V2 max: 239.3 cm/sec LV V1 max P.3 mmHg Ao max P.9 mmHg LV V1 mean P.9 mmHg Ao V2 mean: 168.1 cm/sec LV V1 max: 103.9 cm/sec Ao mean P.0 mmHg LV V1 mean: 63.5 cm/sec Ao V2 VTI: 56.2 cm LV V1 VTI: 19.2 cm SAMANTHA(I,D): 1.1 cm2 SAMANTHA(V,D): 1.4 cm2 SV(LVOT): 59.9 ml TR max harshal: 307.5 cm/sec TR max P.8 mmHg PA V2 max: 126.2 cm/sec Med Peak E' Harshal: 5.2 cm/sec PA max P.4 mmHg Med E/e': 12.9 Lat Peak E' Harshal: 4.2 cm/sec Lat E/e': 16.0 Tech Comments Technically difficult study. Procedure Study Quality: Fair. Left Ventricle The left ventricle is normal in size. There is borderline concentric left ventricular hypertrophy. Th e left ventricular ejection fraction is normal. Ejection Fraction = 60-65%. The transmitral spectral Doppler flow pattern is suggestive of impaired LV relaxation. Right Ventricle The right ventricle is normal in size and function. Atria Normal left and right atrial size and function. Mitral Valve There is mild mitral annular calcification. There is no mitral regurgitation noted. Tricuspid Valve The tricuspid valve is not well visualized, but is grossly normal. There is mild tricuspid regurgitat ion. Right ventricular systolic pressure is elevated at 40-50mmHg. There is mild pulmonary hypertension. Aortic Valve There is moderate aortic sclerosis.;. Mild valvular aortic stenosis. No aortic regurgitation is prese nt. Pulmonic Valve The pulmonic valve is not well visualized. Great Vessels The aortic root is normal size. Pericardium/Pleura Small pericardial effusion. Interpretation Summary LV: Normal size,borderline LVH,normal systolic function,EF 60-65%,impaired relaxation RV: Normal Mildy calcifiedmitral annulus calcified aortic valve, mils stenosis Mild TR with mild pulmonary [id number] Small pericardial effusion. Lisandro Aguilar 01/11/2020 11:43 AM
[2020-01-11] MEDS: SERTRALINE HCL 25 MG TABLET (FP) PO SCH (12:12)
[2020-01-11] MEDS: FUROSEMIDE 40 MG TABLET (FP) PO SCH (12:12)
[2020-01-11] MEDS: predniSONE 20 MG TABLET (UD) PO SCH (12:12)
[2020-01-11] MEDS: ENOXAPARIN NA (PORCINE) 40 MG/0.4 ML DISP.SYRIN SQ SCH (12:12)
[2020-01-11] MEDS: ASPIRIN COATED 81 MG TABLET.EC PO SCH (12:12)
[2020-01-11] MEDS: ZINC OXIDE 20% TOPICAL OINTMENT 30 GM TUBE TP SCH (12:14)
[2020-01-11 13:01] LABS: BLOOD UREA NITROGEN 31.4 mg/dL (7-18); CALCIUM 8.6 mg/dL (8.5-10.1); CREATININE 0.7 mg/dL (0.55-1.3); POTASSIUM 4.9 mmol/L (3.5-5.1)
--- NOTE | 2020-01-11 13:29 | PN ---
Teaching Attending Note Name of Resident: Prince Acosta ATTENDING PHYSICIAN STATEMENT I saw and evaluated the patient. I reviewed the resident's note and discussed the case with the resident. I agree with the resident's findings and plan as documented. SUBJECTIVE: Feeling less SOB. No further PND/Orthopnea overnight. OBJECTIVE: Afebrile, Hemodynamically Stable. Last Vital Signs Temp Pulse Resp BP Pulse Ox 97.4 F L 71 18 123/65 95% on 2L 01/11/20 06:00 01/11/20 06:00 01/11/20 06:00 01/11/20 06:00 01/11/20 06:00 Heart - S1, S2, RRR Lungs - decreased air entry, few crackles bibasally Abdomen - Soft, non-tender. Bowel Sounds normal. Extremities - severe venous stasis skin changes, edema+, no calf tenderness. Neuro - AAO x 3. Tone/Power normal. Laboratory Results - last 24 hr 01/11/20 11:58 Sodium 142 Potassium 4.9 Chloride 105 Carbon Dioxide 30 Anion Gap 7 L BUN 31.4 H Creatinine 0.7 Est GFR (CKD-EPI)AfAm 98.34 Est GFR (CKD-EPI)NonAf 84.85 Random Glucose 93 Calcium 8.6 Current Medications Generic Name Dose Route Start Last Admin Trade Name Freq PRN Reason Stop Dose Admin Aspirin 81 mg 01/09/20 10:00 01/11/20 12:12 Ecotrin - PO 81 mg DAILY QUETA Administration Atorvastatin Calcium 40 mg 01/09/20 22:00 01/10/20 21:54 Lipitor - PO 40 mg HS QUETA Administration Budesonide/Formoterol Fumarate 2 puff 01/09/20 01:00 01/11/20 10:00 Symbicort 80/4.5mcg - IH 2 puff BID QUETA Administration Docusate Sodium 100 mg 01/10/20 16:51 Colace - PO BID PRN CONSTIPATION Enoxaparin Sodium 40 mg 01/09/20 10:00 01/11/20 12:12 Lovenox - SQ 40 mg DAILY QUETA Administration Furosemide 80 mg 01/10/20 10:00 01/11/20 12:12 Lasix - PO 80 mg DAILY QUETA Administration Levalbuterol HCl 0.31 mg 01/09/20 00:54 Xopenex IH Q8H PRN ASTHMA Multi-Ingredient Ointment 1 applic 01/09/20 10:00 01/11/20 12:14 Zinc Oxide TP 1 applic BID QUETA Administration Polyethylene Glycol 17 gm 01/10/20 16:51 Miralax (For Daily Use) - PO DAILY PRN CONSTIPATION Prednisone 40 mg 01/10/20 14:30 01/11/20 12:12 Deltasone - PO 40 mg DAILY QUETA Administration Senna 2 tab 01/10/20 16:50 01/10/20 21:59 Senna - PO Not Given HS [facility] Sertraline HCl 25 mg 01/09/20 10:00 01/11/20 12:12 Zoloft - PO 25 mg DAILY QUETA Administration Tiotropium [place] 2 puff 01/09/20 15:45 01/11/20 10:00 Spiriva Respimat IH 2 puff DAILY QUETA Administration Home Medications Medication Instructions Recorded Acetaminophen [Tylenol Extra 1 gm PO TID PRN 12/20/19 Strength] Albuterol Sulfate [Proair Hfa] 8.5 gm IH Q4H PRN 12/20/19 Aspirin Coated [Ecotrin -] 81 mg PO DAILY 12/20/19 Atorvastatin Calcium 40 mg PO HS 12/20/19 Budesonide/Formeterol Fumarate 2 inh PO BID 12/20/19 [SYMBICORT 80/4.5mcg -] Famotidine [Pepcid] 40 mg PO DAILY 12/20/19 Furosemide [Lasix] 80 mg PO DAILY 12/20/19 Ipratropium 0.02% Nebulizer 1 neb NEB TID 12/20/19 [Atrovent 0.02% Nebulizer -] Methocarbamol [Robaxin -] 500 mg PO TID 12/20/19 Roflumilast [Daliresp] 500 mcg PO DAILY 12/20/19 Sennosides [Senna -] 1 tab PO HS 12/20/19 Sertraline HCl [Zoloft] 25 mg PO DAILY 12/20/19 Tiotropium [place] [Spiriva] 1 puff IH DAILY 12/20/19 clonazePAM [Klonopin -] 0.5 mg PO TID PRN 12/20/19 Alprazolam 0.25 mg PO DAILY PRN 12/23/19 ASSESSMENT AND PLAN: 89 year old male with history of CRF sec to COPD on Home O2, HTN, HLD, CAD s/p Stent (2017), s/p rib fracture (1 month ago), presents with increasing SOB/Orthopnea/PND/weakness, found to have moderate bilateral infusions. CT Chest - moderate bilateral effusions with compressive atelectasis, mild pericardial effusion, bilateral pulmonary nodules, Emphysema, Bilateral non- obstructing calculi enlarged mediastinal/axillary LNs. 1. Acute on Chronic Diastolic CHF/Mild-Mod Echo 12/11 as per Cardiology. BNP 767 Continue PO Lasix 80mg. I/Os, Daily weight Cardiology following - for transfer for investigative work-up including cath to exclude ischemic cause for patient's recent decline. 2. Elevated Troponin ?sec to demand ischemia due to acute CHF decompensation. Hx CAD s/p PCI/Stent 2017 For transfer to [facility] for NIYA/Cath as per Cardio. Continue Aspirin/Statin. 3. CRF sec to COPD - no evidence of exacerbation Continue Spiriva, Symbicort, Albuterol PRN, Daliresp, supplemental O2. 4. Stage 2 Sacral Ulcer - POA Zinc Oxide Regular position changes 5. Anxiety - Continue Zoloft, Clonazepam PRN. DVT Px - Lovenox SQ
--- NOTE | 2020-01-11 13:32 | PN ---
Progress Note (short form) - Note Progress Note: Chief Complaint: sob History of Present Illness: no sob palps cp le edema dizzy Current Medications Generic Name Dose Route Start Last Admin Trade Name Rodriq PRN Reason Stop Dose Admin Aspirin 81 mg 01/09/20 10:00 01/11/20 12:12 Ecotrin - PO 81 mg DAILY QUETA Administration Atorvastatin Calcium 40 mg 01/09/20 22:00 01/10/20 21:54 Lipitor - PO 40 mg HS QUETA Administration Budesonide/Formoterol Fumarate 2 puff 01/09/20 01:00 01/11/20 10:00 Symbicort 80/4.5mcg - IH 2 puff BID QUETA Administration Docusate Sodium 100 mg 01/10/20 16:51 Colace - PO BID PRN CONSTIPATION Enoxaparin Sodium 40 mg 01/09/20 10:00 01/11/20 12:12 Lovenox - SQ 40 mg DAILY QUETA Administration Furosemide 80 mg 01/10/20 10:00 01/11/20 12:12 Lasix - PO 80 mg DAILY QUETA Administration Levalbuterol HCl 0.31 mg 01/09/20 00:54 Xopenex IH Q8H PRN ASTHMA Multi-Ingredient Ointment 1 applic 01/09/20 10:00 01/11/20 12:14 Zinc Oxide TP 1 applic BID QUETA Administration Polyethylene Glycol 17 gm 01/10/20 16:51 Miralax (For Daily Use) - PO DAILY PRN CONSTIPATION Prednisone 40 mg 01/10/20 14:30 01/11/20 12:12 Deltasone - PO 40 mg DAILY QUETA Administration Senna 2 tab 01/10/20 16:50 01/10/20 21:59 Senna - PO Not Given HS QUETA Sertraline HCl 25 mg 01/09/20 10:00 01/11/20 12:12 Zoloft - PO 25 mg DAILY QUETA Administration Tiotropium [place] 2 puff 01/09/20 15:45 01/11/20 10:00 Spiriva Respimat IH 2 puff DAILY QUETA Administration Vital Signs Period Temp Pulse Resp BP Sys/Donovan Pulse Ox Last 24 Hr 97.4 F-98 F 56-74 18-18 101-123/55-66 95-96 Constitutional: Yes: No Distress, Calm Eyes: No: Sclera Icterus HENT: No: Nasal Congestion Cardiovascular: Yes: Regular Rate and Rhythm (decr sounds (copd)), S1, S2, Other (PMI non diplaced). No: JVD, Gallop, Murmur Respiratory: Yes: CTA Bilaterally (decr sounds (copd)). No: Accessory Muscle Use Gastrointestinal: Yes: Normal Bowel Sounds, Soft. No: Tenderness Extremities: No: Cyanosis Edema: No Integumentary: No: Jaundice Neurological: Yes: Alert, Oriented (x3) Psychiatric: No: Agitated Labs: CBC, BMP 01/10/20 06:20 01/11/20 11:58 Assessment/Plan Echo 08/2019: 1. This was a technically difficult study with suboptimal views--Definity contrast agent used. 2. The left ventricular size is normal. 3. Left ventricular systolic function is hyperdynamic with an estimated EF of >70%. 4. LA pressure is uncertain. 5. The RV was not well visualized; probably normal in size and function. 6. Left atrium is probably normal size by volume. 7. The aortic valve was not well visualized; leaflets are at least moderately thickened where visualized, with restricted mobility--cannot exclude severe restriction of mobility on the available images. 8. Moderate to severe aortic stenosis with peak/mean pressure gradient of 30 / 18 mmHg, and aortic valve area by continuity equation of 0.9 cm2. AV area is of uncertain accuracy, due to technical limitations of LVOT doppler signals (despite multiple recording attempts performed). SV index = 29 cc/m2. These results are potentially consistent with paradoxical low output, low gradient severe aortic stenosis. 9. There is at least mild pulmonary hypertension (TR doppler signal cut off). 10. The right ventricular systolic pressure is at least 42 mmHg (assuming RA pressure of 3). CT chest: mod pleural effusions increased vs 12/11, with compressive ATX. new bilateral flank subcutaneous edema. severe emphys changes. EKG: NSR, low voltage, ? old ASMI, NSTWAs--no change tele: SR, artifact Acute on chronic diastolic congestive heart failure, WHO 2 +/- 3 PH: -S/P ACUTE HFPEF 06/2019--OF NOTE NO OBVIOUS VOLUME ON EXAM THEN (LE EDEMA SEC TO VENOUS INSUFFICIENCY, WITHOUT JVD OR CONGESTION ON CHEST CT), BUT SOB MUCH IMPROVED AFTER SINGLE DOSE IV LASIX IN HOSPITAL-->BP DOWN TO 90S. -CLINICAL ASSESSMENT IS VERY DIFFICULT DUE TO SIGNIF ANTICIPATORY ANXIETY NOW ABOUT SOB WITH ACTIVITIES, AND VERY TDS HISTORY/PHYS EXAM AND ECHO DUE TO SEVERE COPD AND VENOUS INS. -EDEMA AND WT IMPROVED WITH INCR LASIX 40 TO 80 IN OFFICE SEVERAL MONTHS AGO (RUNNING 155-158 LBS). HOWEVER SOB PERSISTED. CHANGED TO 60 QD (09/10) -MILD PULM HTN ON PRIOR RHC WITH INCR TO >60 ON STRESS ECHO -PRESENTLY WITH MODERATE (ENLARGING) PLEURAL EFFUSIONS, BNP SLIGHTLY HIGHER THAN PRIOR, EPISODES OF PND. WT DOWN VS PRIOR (? LOSS OF MUSCLE MASS GIVEN FRAILTY OF LATE). -RECEIVED TWO DOSES OF LASIX 80 IV QD. SOFT BP'S, WT UNCHANGED, LABS STABLE-- RESUME 80 PO UNTIL RHC COMPLETED. -DISC'D WITH PT AND THAT WE HAVE NOT DEFINITIVELY EXCLUDED OBSTRUCTIVE OR CAD CAUSE OF HIS CLINICAL WORSENING THE PAST 6-9 MONTHS, NOR HAVE WE DEFINED EXTENT OF HFPEF VS COPD SX'S. REC WE DO LEFT/RIGHT HEART CATH AND E[facility] PRIOR TO DISCHARGE, AND CONSIDER CARDIOMEMS IMPLANT IF FILLING PRESSURES ARE ELEVATED. WHILE THEY DO NOT WANT HIM TO GO THROUGH MORE INVASIVE PROCEDURES, THEY UNDERSTAND THAT HE IS LIKELY TO PROGRESSIVELY DETERIORATE WITH THE STATUS QUO AND AGREE TO WORKUP TO RULE OUT REVERSIBLE ETIOLOGY. -CANNOT TRAVEL TO [facility], REQUESTED TRANSFER TO [facility] FOR WORKUP, AWAITING Chronic ischemic heart disease: -06/09 NSTEMI, WITH MARKED PROGRESSION OF OM1 DISEASE--XIENCE MDEARDO. NO RESIDUAL OBSTRUCTIVE CAD PRESENT. -CONTINUE ASA, STATIN. METOPR HELD (FREQUENT COPD EXACERBATIONS, NYHA III SX'S)--NO ANGINA. -SIGNIF DECLINE IN E.T. WITH RECURRENT HFPEF IN PAST SEVERAL MONTHS--PHARM MPI PLANNED TO CONFIRM NO NEW ISCHEMIC SUBSTRATE, NOT COMPLETED SECONDARY TO COVID -NO SIGNS OF ACUTE ISCHEMIA HERE -FOR CATH Aortic stenosis: -MODERATE ON ECHO 11/2019 (GOOD DOPPLER ALIGNMENTS). -VERY SOFT HEART SOUNDS SEC TO COPD--PROHIBITIVELY TDS EXAM. NOW WITH NEW HFPEF SYNDROME, DECLINING CLINICAL STATUS. TDS IMAGES OF VALVE ON ECHO TODAY, WITH MODERATE THICKENING AND RESTRICTED MOBILITY WHERE VISUALIZED. GRADIENTS MODERATE, SAMANTHA SEVERE (SV INDEX LOW, HOWEVER LVOT DOPPLER SIGNAL SUSPECT). -PLAN WAS FOR REPEAT ECHO +/- NIYA AT [facility]--DEFERRED DUE TO COVID EPIDEMIC AND PT HI RISK FOR INFECTION -FOR CATH AND ECHO AT [facility] COPD: -per pulmonary/hospitalist pale/diaphoretic with BM: -pt with known vasovagal presyncope in the past, current episode highly likely same process -no signs of ACS as above
--- NOTE | 2020-01-11 14:07 | PN ---
Progress Note (short form) - Note Progress Note: ECHO performed earlier. Breathing feels a little better today. Still with cough and SHNA[place]. No CP. No acute events overnight. Intake & Output 01/08/20 01/09/20 01/10/20 01/11/20 23:59 23:59 23:59 23:59 Intake Total 10 580 260 Output Total 1800 1700 400 Balance -1790 -1120 -140 Weight 140 lb 140 lb 12.8 oz 140 lb 135 lb 2 oz Last Vital Signs Temp Pulse Resp BP Pulse Ox 97.8 F 73 22 H 101/54 L 98 01/11/20 10:00 01/11/20 10:00 01/11/20 10:00 01/11/20 10:00 01/11/20 10:00 Active Medications Aspirin (Ecotrin -) 81 mg PO DAILY [facility] Last Admin: 01/11/20 12:12 Dose: 81 mg Documented by: Atorvastatin Calcium (Lipitor -) 40 mg PO HS [facility] Last Admin: 01/10/20 21:54 Dose: 40 mg Documented by: Budesonide/Formoterol Fumarate (Symbicort 80/4.5mcg -) 2 puff IH BID [facility] Last Admin: 01/11/20 10:00 Dose: 2 puff Documented by: Docusate Sodium (Colace -) 100 mg PO BID PRN PRN Reason: CONSTIPATION Enoxaparin Sodium (Lovenox -) 40 mg SQ DAILY [facility] Last Admin: 01/11/20 12:12 Dose: 40 mg Documented by: Furosemide (Lasix -) 80 mg PO DAILY [facility] Last Admin: 01/11/20 12:12 Dose: 80 mg Documented by: Levalbuterol HCl (Xopenex) 0.31 mg IH Q8H PRN PRN Reason: ASTHMA Multi-Ingredient Ointment (Zinc Oxide) 1 applic TP BID [facility] Last Admin: 01/11/20 12:14 Dose: 1 applic Documented by: Polyethylene Glycol (Miralax (For Daily Use) -) 17 gm PO DAILY PRN PRN Reason: CONSTIPATION Prednisone (Deltasone -) 40 mg PO DAILY [facility] Last Admin: 01/11/20 12:12 Dose: 40 mg Documented by: Senna (Senna -) 2 tab PO [facility] Last Admin: 01/10/20 21:59 Dose: Not Given Documented by: Sertraline HCl (Zoloft -) 25 mg PO DAILY [facility] Last Admin: 01/11/20 12:12 Dose: 25 mg Documented by: Tiotropium [place] (Spiriva Respimat) 2 puff IH DAILY [facility] Last Admin: 01/11/20 10:00 Dose: 2 puff Documented by: Constitutional: Yes: Mildly tachypneic at rest, Thin Eyes: Yes: Conjunctiva Clear, EOM Intact HENT: Yes: Atraumatic, Normocephalic Neck: Yes: Supple, Trachea Midline Cardiovascular: Yes: Regular Rate and Rhythm Respiratory: Yes: Cough, Diminished, On Nasal O2, Rales, Rhonchi, SOB, SOB on Exertion, Tachypnea. No: Accessory Muscle Use, Stridor, Wheezes ...Inspection: Yes: WNL ...Clubbing: No Gastrointestinal: Yes: Normal Bowel Sounds, Soft Renal/: Yes: WNL Musculoskeletal: Yes: WNL Extremities: Yes: WNL Edema: No Peripheral Pulses WNL: Yes Integumentary: Yes: WNL Neurological: Yes: WNL, Alert, Oriented ...Motor Strength: WNL Psychiatric: Yes: WNL, Alert, Oriented Labs: Laboratory Results - last 24 hr 01/11/20 11:58 Sodium 142 Potassium 4.9 Chloride 105 Carbon Dioxide 30 Anion Gap 7 L BUN 31.4 H Creatinine 0.7 Est GFR (CKD-EPI)AfAm 98.34 Est GFR (CKD-EPI)NonAf 84.85 Random Glucose 93 Calcium 8.6 Imaging - Results Chest X-ray: Report Reviewed, Image Reviewed Cat Scan: Report Reviewed, Image Reviewed Problem List - Problems (1) Pleural effusion due to CHF (congestive heart failure) Code(s): I50.9 - HEART FAILURE, UNSPECIFIED (2) Fluid overload Code(s): E87.70 - FLUID OVERLOAD, UNSPECIFIED (3) Shortness of breath Code(s): R06.02 - SHORTNESS OF BREATH (4) COPD (chronic obstructive pulmonary disease) Code(s): J44.9 - CHRONIC OBSTRUCTIVE PULMONARY DISEASE, UNSPECIFIED Qualifiers: COPD type: COPD with acute exacerbation Qualified Code(s): J44.1 - Chronic obstructive pulmonary disease with (acute) exacerbation (5) Chronic venous insufficiency of lower extremity Code(s): I87.2 - VENOUS INSUFFICIENCY (CHRONIC) (PERIPHERAL) (6) HLD (hyperlipidemia) Code(s): E78.5 - HYPERLIPIDEMIA, UNSPECIFIED (7) Hypertension Code(s): I10 - ESSENTIAL (PRIMARY) HYPERTENSION Qualifiers: Hypertension type: essential hypertension Qualified Code(s): I10 - Essential (primary) hypertension (8) Iron deficiency anemia Code(s): D50.9 - IRON DEFICIENCY ANEMIA, UNSPECIFIED (9) Lung nodule Code(s): R91.1 - SOLITARY PULMONARY NODULE (10) Presence of stent in coronary artery in patient with coronary artery disease Code(s): I25.10 - ATHSCL HEART DISEASE OF [place] CORONARY ARTERY W/O ANG PCTRS; Z95.5 - PRESENCE OF CORONARY ANGIOPLASTY IMPLANT AND GRAFT Assessment/Plan Lasix Symbicort BID Spiriva OD Daily weight Follow I & O Supplemental O2 as needed Monitor off ABX Prednisone No smoking VTE prophylaxis Dr Hudson Problem List - Problems (1) Pleural effusion due to CHF (congestive heart failure) Code(s): I50.9 - HEART FAILURE, UNSPECIFIED (2) Fluid overload Code(s): E87.70 - FLUID OVERLOAD, UNSPECIFIED (3) Shortness of breath Code(s): R06.02 - SHORTNESS OF BREATH (4) COPD (chronic obstructive pulmonary disease) Code(s): J44.9 - CHRONIC OBSTRUCTIVE PULMONARY DISEASE, UNSPECIFIED Qualifiers: COPD type: COPD with acute exacerbation Qualified Code(s): J44.1 - Chronic obstructive pulmonary disease with (acute) exacerbation (5) Chronic venous insufficiency of lower extremity Code(s): I87.2 - VENOUS INSUFFICIENCY (CHRONIC) (PERIPHERAL) (6) HLD (hyperlipidemia) Code(s): E78.5 - HYPERLIPIDEMIA, UNSPECIFIED (7) Hypertension Code(s): I10 - ESSENTIAL (PRIMARY) HYPERTENSION Qualifiers: Hypertension type: essential hypertension Qualified Code(s): I10 - Essential (primary) hypertension (8) Iron deficiency anemia Code(s): D50.9 - IRON DEFICIENCY ANEMIA, UNSPECIFIED (9) Lung nodule Code(s): R91.1 - SOLITARY PULMONARY NODULE (10) Presence of stent in coronary artery in patient with coronary artery disease Code(s): I25.10 - ATHSCL HEART DISEASE OF [place] CORONARY ARTERY W/O ANG PCTRS; Z95.5 - PRESENCE OF CORONARY ANGIOPLASTY IMPLANT AND GRAFT
[2020-01-11 21:59] VITALS: BP 115/58; PULSE 66; TEMP 97.6
== END 2020-01-11 21:48 | disposition short-term general hospital (02) | DRG 292 ==
LOC: JER 16:27 → JERBED 20:21 → J4W 01-09 00:15
PROVIDERS: ADMIT Internal Medicine
DX: I11.0 Hypertensive heart disease with heart failure (principal); I31.3 Pericardial effusion (noninflammatory); I24.8 Other forms of acute ischemic heart disease; J96.10 Chronic respiratory failure, unspecified whether with hypoxia or hypercapnia; J98.11 Atelectasis; E46 Unspecified protein-calorie malnutrition; I50.33 Acute on chronic diastolic (congestive) heart failure; J44.9 Chronic obstructive pulmonary disease, unspecified; L89.152 Pressure ulcer of sacral region, stage 2; I27.20 Pulmonary hypertension, unspecified; J43.9 Emphysema, unspecified; E87.70 Fluid overload, unspecified; E78.5 Hyperlipidemia, unspecified; I25.10 Atherosclerotic heart disease of native coronary artery without angina pectoris; Z95.5 Presence of coronary angioplasty implant and graft; I35.0 Nonrheumatic aortic (valve) stenosis; N40.0 Benign prostatic hyperplasia without lower urinary tract symptoms; Z68.20 Body mass index [BMI] 20.0-20.9, adult; E88.09 Other disorders of plasma-protein metabolism, not elsewhere classified; K21.9 Gastro-esophageal reflux disease without esophagitis; F41.8 Other specified anxiety disorders
CPT/HCPCS: 36415; 71045-TC-FY; 71250-TC; 80048; 80053; 80061; 81003; 82550; 83036; 83721; 83735; 83880; 84100; 84439; 84443; 84484; 85025; 85027; 85610; 85730; 87086; 93005; 93010; 93306-TC; 99285-25; U0003

== ENCOUNTER 2020-10-20 21:24 | Inpatient (IN) | payer OTHER, BC ==
[2020-10-20] MEDS ORDERED: ALBUTEROL SO4 2.5/IPRATROPIUM 0.5 INH SOL 3 ML VIAL.NEB. NEB ONE ×2 (22:44→23:00)
[2020-10-20] MEDS ORDERED: LACTATED RINGERS SOLUTION 1000 ML INFUS.BAG IV ONE (22:45)
[2020-10-20] MEDS ORDERED: methylPREDNISolone NA SUCC 125 MG/2 ML VIAL IVPB ONE (22:45)
[2020-10-20] MEDS ORDERED: methylPREDNISolone NA SUCC 125 MG/2 ML VIAL ONE (23:01)
[2020-10-20 23:30] LABS: BASO % 0.9 % (0-2.0); EOS % 4.3 % (0-4.5); HEMATOCRIT 33.9 % (35.4-49); LYMPH % 18.1 % (8-40); MCH 30.2 pg (25.7-33.7); MCHC 32.4 g/dl (32.0-35.9); MEAN CELL VOLUME 93.3 fl (80-96); MEAN PLT VOLUME 7.1 fl (7.5-11.1); NEUT % 69.7 % (42.8-82.8); PLATELET COUNT 211 K/MM3 (134-434); RBC 3.64 M/mm3 (4.00-5.60); WHITE BLOOD COUNT 6.3 K/mm3 (4.0-10.0)
[2020-10-20 23:48] LABS: ALBUMIN 2.6 g/dl (3.4-5.0); BLOOD UREA NITROGEN 25.9 mg/dL (7-18); CALCIUM 8.3 mg/dL (8.5-10.1)
[2020-10-20 23:51] LABS: CREATININE 0.7 mg/dL (0.55-1.3)
[2020-10-20 23:54] LABS: BILIRUBIN,TOTAL 0.5 mg/dL (0.2-1)
[2020-10-20 23:56] LABS: N-TERMINAL BNP 907.5 pg/ml (5-450)
[2020-10-21 03:55] LABS: INR 1.24 (0.83-1.09); PROTHROMBIN TIME (PATIENT) 14.9 SEC (9.7-13.0)
[2020-10-21 03:58] LABS: ACTIVATED PTT 28.4 SECONDS (25.2-36.5); BILIRUBIN,DIRECT 0.2 mg/dL (0.0-0.2)
[2020-10-21] MEDS ORDERED: morphine SULFATE 10 MG/5 ML UNIT-DOSE CUP PO PRN (04:43)
[2020-10-21 07:36] LABS: BASO % 0.5 % (0-2.0); EOS % 0.2 % (0-4.5); HEMATOCRIT 38.3 % (35.4-49); HEMOGLOBIN 12.7 GM/dL (11.7-16.9); LYMPH % 6.2 % (8-40); MCH 30.8 pg (25.7-33.7); MCHC 33.2 g/dl (32.0-35.9); MEAN CELL VOLUME 92.8 fl (80-96); MONO % 0.7 % (3.8-10.2); NEUT % 92.4 % (42.8-82.8); PLATELET COUNT 193 K/MM3 (134-434); RBC 4.13 M/mm3 (4.00-5.60); RDW 15.7 % (11.9-15.9); WHITE BLOOD COUNT 4.2 K/mm3 (4.0-10.0)
[2020-10-21 08:11] LABS: CALCIUM 8.3 mg/dL (8.5-10.1)
[2020-10-21 08:12] LABS: ALBUMIN 2.8 g/dl (3.4-5.0); MAGNESIUM 1.7 mg/dL (1.8-2.4)
[2020-10-21 08:15] LABS: CREATININE 0.7 mg/dL (0.55-1.3); PHOSPHOROUS 3.8 mg/dL (2.5-4.9)
[2020-10-21 08:16] LABS: BILIRUBIN,TOTAL 0.6 mg/dL (0.2-1); TOT PROT 5.5 g/dl (6.4-8.2)
[2020-10-21 09:17] LABS: ANISOCYTOSIS 0; MACROCYTOSIS 0; PLATELET ESTIMATE NORMAL
[2020-10-21] MEDS ORDERED: DEXAMETHASONE SOD PHOSPHATE 4 MG/1 ML VIAL IVPUSH SCH (10:00)
[2020-10-21] MEDS ORDERED: ASCORBIC ACID 500 MG TABLET (FP) ONE (10:36)
[2020-10-21] MEDS ORDERED: DEXAMETHASONE SOD PHOSPHATE 4 MG/1 ML VIAL ONE (10:36)
[2020-10-21] MEDS ORDERED: FAMOTIDINE 20 MG/50 ML IVPB 20 MG/50 ML MG IVPB ONE (10:36)
[2020-10-21] MEDS ORDERED: ZINC SULFATE 220 MG CAPSULE (FP) ONE (10:36)
[2020-10-21] MEDS ORDERED: DOCUSATE SODIUM 100 MG CAPSULE (FP) PO ONE (10:36)
[2020-10-21] MEDS ORDERED: ENOXAPARIN NA (PORCINE) 40 MG/0.4 ML DISP.SYRIN SQ ONE (10:36)
[2020-10-21] MEDS: DOCUSATE SODIUM 100 MG CAPSULE (FP) PO SCH ×2 (10:59→22:00)
[2020-10-21] MEDS: ENOXAPARIN NA (PORCINE) 40 MG/0.4 ML DISP.SYRIN SQ SCH (10:59)
[2020-10-21] MEDS: ASCORBIC ACID 500 MG TABLET (FP) PO SCH ×2 (11:00→22:00)
[2020-10-21] MEDS: CHOLECALCIFEROL (VIT D3) 1,000 UNIT (25 MCG) TABLET PO SCH (11:00)
[2020-10-21] MEDS: ZINC SULFATE 220 MG CAPSULE (FP) PO SCH (11:00)
[2020-10-21] MEDS: FAMOTIDINE 20 MG/50 ML IVPB 20 MG/50 ML MG IVPB SCH ×2 (11:00→22:00)
[2020-10-21] MEDS: BUDESONIDE/FORMETEROL FUMARATE 160/4.5 mcg INHALER IH SCH ×2 (12:52→22:00)
[2020-10-21] MEDS: TIOTROPIUM BROMIDE 2.5 MCG (SPIRIVA) RESPIMAT INHALER IH SCH (12:52)
[2020-10-21] MEDS: ROFLUMILAST 500 MCG TABLET PO SCH (12:52)
[2020-10-21] MEDS ORDERED: PT OWN MED DRAWER 7, Y5N ONE (12:57)
[2020-10-21] MEDS ORDERED: methylPREDNISolone NA SUCC 40 MG/1 ML VIAL IVPUSH SCH (14:15)
[2020-10-21] MEDS ORDERED: MAGNESIUM SULF 50% (8.12 MEQ/2 ML-1 GM VIAL) IVPB ONE (15:00)
[2020-10-21] MEDS ORDERED: REMDESIVIR 200 MG in SODIUM CHLORIDE 250 ML IVPB ONE (15:00)
[2020-10-21] MEDS ORDERED: ALBUTEROL SO4 0.083% IH SOL 2.5 MG/3 ML VIAL.NEB. NEB SCH (20:00)
[2020-10-21] MEDS: ALPRAZolam 1 MG TABLET PO PRN (20:05)
[2020-10-21] MEDS: ALBUTEROL SO4 HFA INHALER IH PRN (20:07)
[2020-10-21] MEDS: guaiFENesin/D-METHORPHAN HB 10 ML UNIT-DOSE CUPS PO PRN (22:00)
[2020-10-22 07:34] LABS: CALCIUM 8.6 mg/dL (8.5-10.1)
[2020-10-22 07:35] LABS: BLOOD UREA NITROGEN 33.4 mg/dL (7-18); MAGNESIUM 2.1 mg/dL (1.8-2.4)
[2020-10-22 07:38] LABS: CREATININE 0.7 mg/dL (0.55-1.3)
[2020-10-22 07:39] LABS: PHOSPHOROUS 3.6 mg/dL (2.5-4.9)
[2020-10-22] MEDS: ENOXAPARIN NA (PORCINE) 40 MG/0.4 ML DISP.SYRIN SQ SCH (09:35)
[2020-10-22] MEDS: ZINC SULFATE 220 MG CAPSULE (FP) PO SCH (09:35)
[2020-10-22] MEDS: FAMOTIDINE 20 MG/50 ML IVPB 20 MG/50 ML MG IVPB SCH ×2 (09:35→21:31)
[2020-10-22] MEDS: ASCORBIC ACID 500 MG TABLET (FP) PO SCH ×2 (09:35→21:31)
[2020-10-22] MEDS: ROFLUMILAST 500 MCG TABLET PO SCH (09:35)
[2020-10-22] MEDS: CHOLECALCIFEROL (VIT D3) 1,000 UNIT (25 MCG) TABLET PO SCH (09:35)
[2020-10-22] MEDS: BUDESONIDE/FORMETEROL FUMARATE 160/4.5 mcg INHALER IH SCH ×2 (09:35→21:31)
[2020-10-22] MEDS: TIOTROPIUM BROMIDE 2.5 MCG (SPIRIVA) RESPIMAT INHALER IH SCH (09:35)
[2020-10-22] MEDS: DOCUSATE SODIUM 100 MG CAPSULE (FP) PO SCH ×2 (09:35→21:31)
[2020-10-22] MEDS: ALPRAZolam 1 MG TABLET PO PRN ×2 (09:35→15:29)
[2020-10-22] MEDS: REMDESIVIR 100 MG in SODIUM CHLORIDE 250 ML IVPB SCH (14:48)
[2020-10-22] MEDS: SENNOSIDES 8.6MG TABLET (FP) PO PRN (21:31)
[2020-10-23] MEDS: ALBUTEROL SO4 HFA INHALER IH PRN (03:32)
[2020-10-23] MEDS: ALPRAZolam 1 MG TABLET PO PRN ×3 (03:32→19:57)
[2020-10-23 06:37] LABS: BASO % 0.2 % (0-2.0); EOS % 2.2 % (0-4.5); HEMATOCRIT 35.1 % (35.4-49); HEMOGLOBIN 11.9 GM/dL (11.7-16.9); LYMPH % 16.3 % (8-40); MCH 31.3 pg (25.7-33.7); MCHC 33.8 g/dl (32.0-35.9); MEAN CELL VOLUME 92.6 fl (80-96); MEAN PLT VOLUME 6.8 fl (7.5-11.1); MONO % 6.2 % (3.8-10.2); NEUT % 75.1 % (42.8-82.8); PLATELET COUNT 224 K/MM3 (134-434); RBC 3.79 M/mm3 (4.00-5.60); RDW 16.1 % (11.9-15.9); WHITE BLOOD COUNT 7.9 K/mm3 (4.0-10.0)
[2020-10-23 07:03] LABS: CALCIUM 7.8 mg/dL (8.5-10.1)
[2020-10-23 07:04] LABS: ALBUMIN 2.5 g/dl (3.4-5.0); BLOOD UREA NITROGEN 31.6 mg/dL (7-18)
[2020-10-23 07:07] LABS: CREATININE 0.6 mg/dL (0.55-1.3)
[2020-10-23 07:08] LABS: BILIRUBIN,TOTAL 0.3 mg/dL (0.2-1); TOT PROT 4.8 g/dl (6.4-8.2)
[2020-10-23] MEDS ORDERED: PT OWN MED DRAWER 7, Y5N ONE (09:26)
[2020-10-23] MEDS: ENOXAPARIN NA (PORCINE) 40 MG/0.4 ML DISP.SYRIN SQ SCH (09:51)
[2020-10-23] MEDS: ASCORBIC ACID 500 MG TABLET (FP) PO SCH ×2 (09:51→21:19)
[2020-10-23] MEDS: guaiFENesin/D-METHORPHAN HB 10 ML UNIT-DOSE CUPS PO PRN (09:51)
[2020-10-23] MEDS: FAMOTIDINE 20 MG/50 ML IVPB 20 MG/50 ML MG IVPB SCH ×2 (09:51→21:19)
[2020-10-23] MEDS: CHOLECALCIFEROL (VIT D3) 1,000 UNIT (25 MCG) TABLET PO SCH (09:51)
[2020-10-23] MEDS: DOCUSATE SODIUM 100 MG CAPSULE (FP) PO SCH ×2 (09:51→21:19)
[2020-10-23] MEDS: ZINC SULFATE 220 MG CAPSULE (FP) PO SCH (09:51)
[2020-10-23] MEDS: BUDESONIDE/FORMETEROL FUMARATE 160/4.5 mcg INHALER IH SCH ×2 (09:52→21:19)
[2020-10-23] MEDS: TIOTROPIUM BROMIDE 2.5 MCG (SPIRIVA) RESPIMAT INHALER IH SCH (09:52)
[2020-10-23] MEDS: ROFLUMILAST 500 MCG TABLET PO SCH (09:53)
[2020-10-23 14:25] VITALS: BMI 18.3
[2020-10-23] MEDS: REMDESIVIR 100 MG in SODIUM CHLORIDE 250 ML IVPB SCH (14:42)
[2020-10-23] MEDS: SENNOSIDES 8.6MG TABLET (FP) PO PRN (21:19)
[2020-10-24 08:05] LABS: BASO % 0.6 % (0-2.0); EOS % 2.9 % (0-4.5); HEMATOCRIT 39.5 % (35.4-49); HEMOGLOBIN 13.3 GM/dL (11.7-16.9); LYMPH % 19.5 % (8-40); MCH 31.2 pg (25.7-33.7); MCHC 33.7 g/dl (32.0-35.9); MEAN CELL VOLUME 92.4 fl (80-96); MEAN PLT VOLUME 6.8 fl (7.5-11.1); PLATELET COUNT 223 K/MM3 (134-434); RBC 4.27 M/mm3 (4.00-5.60); RDW 16.5 % (11.9-15.9); WHITE BLOOD COUNT 7.6 K/mm3 (4.0-10.0)
[2020-10-24 08:06] LABS: ALBUMIN 2.8 g/dl (3.4-5.0)
[2020-10-24 08:07] LABS: BLOOD UREA NITROGEN 23.4 mg/dL (7-18); CALCIUM 8.2 mg/dL (8.5-10.1)
[2020-10-24 08:10] LABS: CREATININE 0.6 mg/dL (0.55-1.3)
[2020-10-24 08:11] LABS: BILIRUBIN,TOTAL 0.6 mg/dL (0.2-1); TOT PROT 5.2 g/dl (6.4-8.2)
[2020-10-24] MEDS ORDERED: PT OWN MED DRAWER 7, Y5N ONE (10:45)
[2020-10-24] MEDS: ASCORBIC ACID 500 MG TABLET (FP) PO SCH ×2 (10:54→22:13)
[2020-10-24] MEDS: ZINC SULFATE 220 MG CAPSULE (FP) PO SCH (10:54)
[2020-10-24] MEDS: ROFLUMILAST 500 MCG TABLET PO SCH (10:55)
[2020-10-24] MEDS: ENOXAPARIN NA (PORCINE) 40 MG/0.4 ML DISP.SYRIN SQ SCH (10:55)
[2020-10-24] MEDS: DOCUSATE SODIUM 100 MG CAPSULE (FP) PO SCH ×2 (10:55→22:13)
[2020-10-24] MEDS: FAMOTIDINE 20 MG/50 ML IVPB 20 MG/50 ML MG IVPB SCH ×2 (10:56→22:13)
[2020-10-24] MEDS: CHOLECALCIFEROL (VIT D3) 1,000 UNIT (25 MCG) TABLET PO SCH (10:56)
[2020-10-24] MEDS: BUDESONIDE/FORMETEROL FUMARATE 160/4.5 mcg INHALER IH SCH ×2 (11:08→22:16)
[2020-10-24] MEDS: TIOTROPIUM BROMIDE 2.5 MCG (SPIRIVA) RESPIMAT INHALER IH SCH (11:08)
[2020-10-24] MEDS: DEXAMETHASONE SOD PHOSPHATE 4 MG/1 ML VIAL IVPUSH SCH (12:51)
[2020-10-24] MEDS: REMDESIVIR 100 MG in SODIUM CHLORIDE 250 ML IVPB SCH (15:09)
[2020-10-24] MEDS: guaiFENesin/D-METHORPHAN HB 10 ML UNIT-DOSE CUPS PO PRN (22:13)
[2020-10-24] MEDS: ALPRAZolam 1 MG TABLET PO PRN (22:13)
[2020-10-25] MEDS ORDERED: PT OWN MED DRAWER 7, Y5N ONE (09:02)
[2020-10-25] MEDS: CHOLECALCIFEROL (VIT D3) 1,000 UNIT (25 MCG) TABLET PO SCH (09:05)
[2020-10-25] MEDS: DOCUSATE SODIUM 100 MG CAPSULE (FP) PO SCH ×2 (09:05→22:38)
[2020-10-25] MEDS: ENOXAPARIN NA (PORCINE) 40 MG/0.4 ML DISP.SYRIN SQ SCH (09:05)
[2020-10-25] MEDS: ROFLUMILAST 500 MCG TABLET PO SCH (09:05)
[2020-10-25] MEDS: ZINC SULFATE 220 MG CAPSULE (FP) PO SCH (09:05)
[2020-10-25] MEDS: ASCORBIC ACID 500 MG TABLET (FP) PO SCH ×2 (09:05→22:38)
[2020-10-25] MEDS: FAMOTIDINE 20 MG/50 ML IVPB 20 MG/50 ML MG IVPB SCH ×2 (09:05→22:38)
[2020-10-25] MEDS: DEXAMETHASONE SOD PHOSPHATE 4 MG/1 ML VIAL IVPUSH SCH (09:06)
[2020-10-25] MEDS: BUDESONIDE/FORMETEROL FUMARATE 160/4.5 mcg INHALER IH SCH ×2 (09:27→22:38)
[2020-10-25] MEDS: TIOTROPIUM BROMIDE 2.5 MCG (SPIRIVA) RESPIMAT INHALER IH SCH (09:27)
[2020-10-25] MEDS: ALPRAZolam 1 MG TABLET PO PRN ×2 (09:27→19:03)
[2020-10-25] MEDS: REMDESIVIR 100 MG in SODIUM CHLORIDE 250 ML IVPB SCH (14:42)
[2020-10-25] MEDS: guaiFENesin/D-METHORPHAN HB 10 ML UNIT-DOSE CUPS PO PRN (22:38)
[2020-10-26] MEDS: ALPRAZolam 1 MG TABLET PO PRN ×3 (05:59→21:34)
[2020-10-26] MEDS ORDERED: PT OWN MED DRAWER 7, Y5N ONE (09:25)
[2020-10-26] MEDS: DEXAMETHASONE SOD PHOSPHATE 4 MG/1 ML VIAL IVPUSH SCH (09:29)
[2020-10-26] MEDS: ZINC SULFATE 220 MG CAPSULE (FP) PO SCH (09:29)
[2020-10-26] MEDS: ASCORBIC ACID 500 MG TABLET (FP) PO SCH ×2 (09:30→21:33)
[2020-10-26] MEDS: DOCUSATE SODIUM 100 MG CAPSULE (FP) PO SCH ×2 (09:30→21:33)
[2020-10-26] MEDS: CHOLECALCIFEROL (VIT D3) 1,000 UNIT (25 MCG) TABLET PO SCH (09:30)
[2020-10-26] MEDS: ENOXAPARIN NA (PORCINE) 40 MG/0.4 ML DISP.SYRIN SQ SCH (09:30)
[2020-10-26] MEDS: FAMOTIDINE 20 MG/50 ML IVPB 20 MG/50 ML MG IVPB SCH ×2 (09:30→21:33)
[2020-10-26] MEDS: ROFLUMILAST 500 MCG TABLET PO SCH (09:32)
[2020-10-26] MEDS: TIOTROPIUM BROMIDE 2.5 MCG (SPIRIVA) RESPIMAT INHALER IH SCH (10:26)
[2020-10-26] MEDS: BUDESONIDE/FORMETEROL FUMARATE 160/4.5 mcg INHALER IH SCH ×2 (10:26→21:33)
[2020-10-27] MEDS ORDERED: PT OWN MED DRAWER 7, Y5N ONE (09:22)
[2020-10-27] MEDS: FAMOTIDINE 20 MG/50 ML IVPB 20 MG/50 ML MG IVPB SCH ×2 (09:29→21:19)
[2020-10-27] MEDS: ENOXAPARIN NA (PORCINE) 40 MG/0.4 ML DISP.SYRIN SQ SCH (09:29)
[2020-10-27] MEDS: ALPRAZolam 1 MG TABLET PO PRN (09:30)
[2020-10-27] MEDS: CHOLECALCIFEROL (VIT D3) 1,000 UNIT (25 MCG) TABLET PO SCH (09:30)
[2020-10-27] MEDS: ASCORBIC ACID 500 MG TABLET (FP) PO SCH ×2 (09:30→21:19)
[2020-10-27] MEDS: DOCUSATE SODIUM 100 MG CAPSULE (FP) PO SCH ×2 (09:30→21:22)
[2020-10-27] MEDS: ZINC SULFATE 220 MG CAPSULE (FP) PO SCH (09:30)
[2020-10-27] MEDS: DEXAMETHASONE SOD PHOSPHATE 4 MG/1 ML VIAL IVPUSH SCH (09:30)
[2020-10-27] MEDS: BUDESONIDE/FORMETEROL FUMARATE 160/4.5 mcg INHALER IH SCH ×2 (09:31→21:19)
[2020-10-27] MEDS: TIOTROPIUM BROMIDE 2.5 MCG (SPIRIVA) RESPIMAT INHALER IH SCH (09:31)
[2020-10-27] MEDS: ROFLUMILAST 500 MCG TABLET PO SCH (09:31)
[2020-10-28] MEDS: ALPRAZolam 1 MG TABLET PO PRN ×3 (05:54→21:05)
[2020-10-28] MEDS ORDERED: PT OWN MED DRAWER 7, Y5N ONE (09:24)
[2020-10-28] MEDS: ROFLUMILAST 500 MCG TABLET PO SCH (09:41)
[2020-10-28] MEDS: predniSONE 20 MG TABLET (UD) PO SCH (09:41)
[2020-10-28] MEDS: FAMOTIDINE 20 MG/50 ML IVPB 20 MG/50 ML MG IVPB SCH ×2 (09:41→21:06)
[2020-10-28] MEDS: ASCORBIC ACID 500 MG TABLET (FP) PO SCH ×2 (09:41→21:05)
[2020-10-28] MEDS: DOCUSATE SODIUM 100 MG CAPSULE (FP) PO SCH ×2 (09:41→21:05)
[2020-10-28] MEDS: ZINC SULFATE 220 MG CAPSULE (FP) PO SCH (09:41)
[2020-10-28] MEDS: CHOLECALCIFEROL (VIT D3) 1,000 UNIT (25 MCG) TABLET PO SCH (09:41)
[2020-10-28] MEDS: BUDESONIDE/FORMETEROL FUMARATE 160/4.5 mcg INHALER IH SCH ×2 (09:42→21:05)
[2020-10-28] MEDS: TIOTROPIUM BROMIDE 2.5 MCG (SPIRIVA) RESPIMAT INHALER IH SCH (09:42)
[2020-10-28] MEDS: ENOXAPARIN NA (PORCINE) 40 MG/0.4 ML DISP.SYRIN SQ SCH (09:43)
[2020-10-28] MEDS: guaiFENesin/D-METHORPHAN HB 10 ML UNIT-DOSE CUPS PO PRN (21:05)
[2020-10-29 07:11] LABS: BASO % 0.5 % (0-2.0); EOS % 0.5 % (0-4.5); HEMATOCRIT 37.7 % (35.4-49); HEMOGLOBIN 12.8 GM/dL (11.7-16.9); LYMPH % 20.2 % (8-40); MCH 31.2 pg (25.7-33.7); MONO % 5.6 % (3.8-10.2); NEUT % 73.2 % (42.8-82.8); PLATELET COUNT 289 K/MM3 (134-434); RDW 15.9 % (11.9-15.9); WHITE BLOOD COUNT 8.8 K/mm3 (4.0-10.0)
[2020-10-29 07:29] LABS: CALCIUM 8.1 mg/dL (8.5-10.1)
[2020-10-29 07:30] LABS: BLOOD UREA NITROGEN 26.6 mg/dL (7-18); MAGNESIUM 1.7 mg/dL (1.8-2.4)
[2020-10-29 07:33] LABS: CREATININE 0.6 mg/dL (0.55-1.3); PHOSPHOROUS 2.2 mg/dL (2.5-4.9)
[2020-10-29] MEDS ORDERED: PT OWN MED DRAWER 7, Y5N ONE (08:58)
[2020-10-29] MEDS: ASCORBIC ACID 500 MG TABLET (FP) PO SCH ×2 (09:01→21:21)
[2020-10-29] MEDS: guaiFENesin/D-METHORPHAN HB 10 ML UNIT-DOSE CUPS PO PRN (09:01)
[2020-10-29] MEDS: DOCUSATE SODIUM 100 MG CAPSULE (FP) PO SCH ×2 (09:01→21:21)
[2020-10-29] MEDS: predniSONE 20 MG TABLET (UD) PO SCH (09:01)
[2020-10-29] MEDS: ALPRAZolam 1 MG TABLET PO PRN (09:01)
[2020-10-29] MEDS: CHOLECALCIFEROL (VIT D3) 1,000 UNIT (25 MCG) TABLET PO SCH (09:01)
[2020-10-29] MEDS: ROFLUMILAST 500 MCG TABLET PO SCH (09:02)
[2020-10-29] MEDS: FAMOTIDINE 20 MG/50 ML IVPB 20 MG/50 ML MG IVPB SCH ×2 (09:02→21:21)
[2020-10-29] MEDS: ZINC SULFATE 220 MG CAPSULE (FP) PO SCH (09:02)
[2020-10-29] MEDS: BUDESONIDE/FORMETEROL FUMARATE 160/4.5 mcg INHALER IH SCH ×2 (09:03→21:22)
[2020-10-29] MEDS: ENOXAPARIN NA (PORCINE) 40 MG/0.4 ML DISP.SYRIN SQ SCH (09:03)
[2020-10-29] MEDS: TIOTROPIUM BROMIDE 2.5 MCG (SPIRIVA) RESPIMAT INHALER IH SCH (09:03)
[2020-10-29] MEDS ORDERED: MAGNESIUM SULF 50% (8.12 MEQ/2 ML-1 GM VIAL) IVPB ONE (10:56)
[2020-10-29] MEDS: ALPRAZolam 0.25 MG TABLET PO PRN ×3 (14:22→23:29)
[2020-10-30] MEDS: ALPRAZolam 0.25 MG TABLET PO PRN ×4 (07:22→22:07)
[2020-10-30] MEDS ORDERED: PT OWN MED DRAWER 7, Y5N ONE (09:57)
[2020-10-30] MEDS: DOCUSATE SODIUM 100 MG CAPSULE (FP) PO SCH ×2 (10:00→22:07)
[2020-10-30] MEDS: ROFLUMILAST 500 MCG TABLET PO SCH (10:00)
[2020-10-30] MEDS: ENOXAPARIN NA (PORCINE) 40 MG/0.4 ML DISP.SYRIN SQ SCH (10:00)
[2020-10-30] MEDS: CHOLECALCIFEROL (VIT D3) 1,000 UNIT (25 MCG) TABLET PO SCH (10:00)
[2020-10-30] MEDS: BUDESONIDE/FORMETEROL FUMARATE 160/4.5 mcg INHALER IH SCH ×2 (10:00→22:07)
[2020-10-30] MEDS: ASCORBIC ACID 500 MG TABLET (FP) PO SCH ×2 (10:00→22:07)
[2020-10-30] MEDS: ZINC SULFATE 220 MG CAPSULE (FP) PO SCH (10:00)
[2020-10-30] MEDS: predniSONE 20 MG TABLET (UD) PO SCH (10:00)
[2020-10-30] MEDS: FAMOTIDINE 20 MG/50 ML IVPB 20 MG/50 ML MG IVPB SCH ×2 (10:00→22:07)
[2020-10-30] MEDS: TIOTROPIUM BROMIDE 2.5 MCG (SPIRIVA) RESPIMAT INHALER IH SCH (10:00)
[2020-10-31 07:15] VITALS: PULSE 81
[2020-10-31] MEDS: ALPRAZolam 0.25 MG TABLET PO PRN (08:17)
[2020-10-31] MEDS ORDERED: PT OWN MED DRAWER 7, Y5N ONE (09:53)
[2020-10-31 10:03] VITALS: BP 121/70; TEMP 98.2
[2020-10-31] MEDS: CHOLECALCIFEROL (VIT D3) 1,000 UNIT (25 MCG) TABLET PO SCH (10:03)
[2020-10-31] MEDS: ZINC SULFATE 220 MG CAPSULE (FP) PO SCH (10:03)
[2020-10-31] MEDS: ENOXAPARIN NA (PORCINE) 40 MG/0.4 ML DISP.SYRIN SQ SCH (10:03)
[2020-10-31] MEDS: TIOTROPIUM BROMIDE 2.5 MCG (SPIRIVA) RESPIMAT INHALER IH SCH (10:04)
[2020-10-31] MEDS: ASCORBIC ACID 500 MG TABLET (FP) PO SCH (10:04)
[2020-10-31] MEDS: predniSONE 20 MG TABLET (UD) PO SCH (10:04)
[2020-10-31] MEDS: FAMOTIDINE 20 MG/50 ML IVPB 20 MG/50 ML MG IVPB SCH (10:04)
[2020-10-31] MEDS: BUDESONIDE/FORMETEROL FUMARATE 160/4.5 mcg INHALER IH SCH (10:04)
[2020-10-31] MEDS: DOCUSATE SODIUM 100 MG CAPSULE (FP) PO SCH (10:04)
[2020-10-31] MEDS: ROFLUMILAST 500 MCG TABLET PO SCH (10:04)
== END 2020-10-31 12:51 | disposition home health service (06) | DRG 177 ==
LOC: JER 21:24 → JERBED 10-21 01:31 → J4S 10-21 15:13
PROVIDERS: ADMIT Hospitalist
PROC: XW13325 Transfusion of Convalescent Plasma (Nonautologous) into Peripheral Vein, Percutaneous Approach, New Technology Group 5 (ICD-10-PCS; principal; 2020-10-21)
PROC: XW033E5 Introduction of Remdesivir Anti-infective into Peripheral Vein, Percutaneous Approach, New Technology Group 5 (ICD-10-PCS; 2020-10-21)
DX: U07.1 COVID-19 (principal); J96.01 Acute respiratory failure with hypoxia; J12.82 Pneumonia due to coronavirus disease 2019; R64 Cachexia; I50.32 Chronic diastolic (congestive) heart failure; Z68.1 Body mass index [BMI] 19.9 or less, adult; J44.1 Chronic obstructive pulmonary disease with (acute) exacerbation; I25.10 Atherosclerotic heart disease of native coronary artery without angina pectoris; I10 Essential (primary) hypertension; E78.5 Hyperlipidemia, unspecified; Z99.81 Dependence on supplemental oxygen; I45.10 Unspecified right bundle-branch block; I11.0 Hypertensive heart disease with heart failure; I27.20 Pulmonary hypertension, unspecified; F41.9 Anxiety disorder, unspecified; I25.2 Old myocardial infarction; I35.0 Nonrheumatic aortic (valve) stenosis
CPT/HCPCS: 36415; 36430; 71045-TC-FY; 80048; 80053; 82248; 82550; 82728; 83605; 83615; 83735; 83880; 84100; 84484; 85025; 85379; 85610; 85730; 86140; 86769; 86850; 86900; 86901; 87040; 87804; 93005; 93010; 97116-GP; 97161-GP; 99285-25; C9399; C9803; P9017; U0003; U0005